=== PATIENT | female | born 1965 | race Caucasian/White ===

== ENCOUNTER 2023-04-11 09:01 | Emergency (ER) | payer OTHER, SELFPAY ==
--- NOTE | ~2023-04-11 | XR_ITS ---
XR chest 2V DATE: 04/11/2023 09:33 INDICATION: Intermittent chest pain/discomfort for 2 days TECHNIQUE: 2 views COMPARISON: 02/15/2018 two-view chest FINDINGS: Normal heart size. No hilar or mediastinal enlargement. No pulmonary infiltrate or consolidation, pleural effusion or pulmonary vascular congestion or pneumo thorax is detected. IMPRESSION: No active cardiopulmonary disease Reviewed, dictated and finalized at location A.
[2023-04-11 09:08] VITALS: BP 139/66; PULSE 74; RESP 20; TEMP 36.9; O2SAT 100
--- NOTE | 2023-04-11 09:16 | ECG_ITS ---
Measurements Intervals Nelson Rate: 66 P: 29 NJ: 157 QRS: 11 QRSD: 84 T: 10 QT: 396 QTc: 417 Interpretive Statements SINUS RHYTHM LOW QRS VOLTAGE IN PRECORDIAL LEADS [QRS DEFLECTION < 1.0 mV IN CHEST LEADS] ABNORMAL ECG NO PREVIOUS ECG AVAILABLE FOR COMPARISON Electronically Signed On 04-11-2023 12:49:52 CDT by Cory Schmidt M.D.
--- NOTE | 2023-04-11 09:19 | ED.CHESTPAIN ---
HPI - Chest Pain General Chief Complaint: Chest Pain Stated Complaint: tight under chest Time Seen by Provider: 04/11/23 09:15 Source: patient and RN notes reviewed History of Present Illness HPI narrative: Patient is a 57-year-old female presents to Urgent Care with her spouse with complaints of chest pressure and intermittent shortness of breath. Patient states that she has been under a lot of stress with family and feels that she may be having a panic attack. Patient states that she had this happened not too long ago and was at her primary care office, and had to be transferred to the emergency room due to elevated blood pressure. Since then patient has been put on blood pressure medications as well as anxiety meds and takes them appropriately. Patient states that the pain has been intermittent since yesterday and worse this morning at 4:00 a.m.. Patient denies any increase of shortness of breath on exertion. Patient is tearful and anxious. Patient and spouse aware of the plan of care. Some parts of this dictation were generated by voice recognition software and may contain typographical and/or grammatical inaccuracies. Related Data Home Medications Medication Instructions Recorded Confirmed bupropion HCl 100 mg tablet 100 mg PO DIRECTED 04/11/23 04/11/23 furosemide 20 mg tablet 20 mg PO DIRECTED 04/11/23 04/11/23 metoprolol succinate 50 mg 50 mg PO DIRECTED 04/11/23 04/11/23 tablet,extended release 24 hr Allergies Allergy/AdvReac Type Severity Reaction Status Date / Time latex Allergy Severe Rash Verified 04/11/23 09:17 Penicillins Allergy Unknown rash Verified 04/11/23 09:17 Review of Systems Review of Systems: CONSTITUTIONAL: Denies fever, chills, or sweats. EYES: Denies visual changes, redness, or discharge. ENT: Denies rhinorrhea, congestion, sore throat, or otalgia. CARDIOVASCULAR: Reports chest discomfort RESPIRATORY: Reports of intermittent shortness of breath GASTROINTESTINAL: Denies abdominal pain, nausea, vomiting, or diarrhea. GENITOURINARY: Denies dysuria or hematuria. SKIN: Denies rash or itching. MUSCULOSKELETAL: Denies back pain, joint pain, or myalgia. NEUROLOGIC: Denies headache, numbness, or weakness. All other systems reviewed are negative, except as documented in HPI. PMFSH Comments At the time of my signature, I reviewed and agree with the nursing past medical, surgical, social, and family history. There is no relevant family history pertinent to the patient complaint. Exam Narrative: GENERAL: This is a well-nourished, well-developed patient, tearful and anxious HEAD: normocephalic, atraumatic. EYES: PERRL. Sclera clear/white. Vision is grossly intact. EARS: External ears normal NOSE: External nose normal with no obvious nasal discharge, nares without redness, no rhinorrhea. THROAT: Mucous membranes moist NECK: Neck supple CARDIOVASCULAR: Regular rate and rhythm RESPIRATORY: Clear to auscultation. Breath sounds equal bilaterally. No wheezes, rales, or rhonchi. SKIN: warm, intact with no suspicious lesions or rash, good texture and turgor. NEURO: awake, alert, and oriented to person, place and time. There were no obvious focal neurologic abnormalities. EXTREMITIES: No clubbing, cyanosis, or edema. Course Course Level of Care: Express Care Visit Vital Signs Vital signs: Vital Signs Temperature 98.5 F 04/11/23 09:08 Pulse Rate 74 04/11/23 09:08 Respiratory Rate 20 04/11/23 09:08 Blood Pressure 139/66 04/11/23 09:08 Pulse Oximetry 100 04/11/23 09:08 Oxygen Delivery Room Air 04/11/23 09:08 Temperature 98.5 F 04/11/23 09:08 Pulse Rate 74 04/11/23 09:08 Respiratory Rate 20 04/11/23 09:08 Blood Pressure 139/66 04/11/23 09:08 Pulse Oximetry 100 04/11/23 09:08 Oxygen Delivery Room Air 04/11/23 09:08 Reviewed MDM - Chest Pain MDM Narrative Medical decision making narrative: Reviewed EKG results with the patient.
== END 2023-04-11 10:16 | disposition left against medical advice (07) ==
PROVIDERS: Emergency Provider Nurse Practitioner Family; PCP Internal Medicine
DX: F41.9 Anxiety disorder, unspecified (principal); R07.9 Chest pain, unspecified; R94.31 Abnormal electrocardiogram [ECG] [EKG]; I10 Essential (primary) hypertension; F32.A Depression, unspecified
CPT/HCPCS: 71046; 93005; 99213; G0463

== ENCOUNTER 2023-07-27 08:07 | Emergency (ER) | payer OTHER, SELFPAY ==
[2023-07-27 08:14] VITALS: BP 132/72; PULSE 78; RESP 20; TEMP 36.7; O2SAT 98
--- NOTE | 2023-07-27 08:19 | ED.URI ---
HPI - URI/Sore Throat General Chief Complaint: Upper Respiratory Infection Stated Complaint: Bodyache/Sore Throat/Fever Time Seen by Provider: 07/27/23 08:19 Source: patient, RN notes reviewed and old records reviewed Mode of arrival: ambulatory Limitations: no limitations History of Present Illness HPI Narrative: 58 year old female who presents to [facility] with complaints of sore throat , fevers, body aches, and headache which started yesterday morning. Patient reports that her legs and her knees hurt on Wednesday. She also reports that she has some ear discomfort also. She has taken Tylenol and ibuprofen for symptoms for her symptoms. Patient denies any known ill contacts. patient reports that she has had COVID vaccinations but has not had flu shot. MD elicited complaint: fever, sore throat and other (headache and body aches) Onset (ago): day(s) (1) Treatments prior to arrival: acetaminophen and ibuprofen Related Data Home Medications Medication Instructions Recorded Confirmed atorvastatin 20 mg tablet mg 07/27/23 bupropion HCl 100 mg tablet mg PO 07/27/23 trazodone 50 mg tablet mg 07/27/23 Allergies Allergy/AdvReac Type Severity Reaction Status Date / Time No Known Allergies Allergy Verified 07/27/23 08:19 Review of Systems Review of Systems: CONSTITUTIONAL: She reports is malaise, chills, sweats, or fever. EYES: Denies visual changes, redness, or discharge. ENT: Reports rhinorrhea, congestion, sinus pain, otalgia and sore throat. CARDIOVASCULAR: Denies chest pain, palpitations, or edema. RESPIRATORY: Reports no cough.? Denies dyspnea. GASTROINTESTINAL: Denies abdominal pain, nausea, vomiting, diarrhea SKIN: Denies rash or itching. MUSCULOSKELETAL: Reports myalgia. NEUROLOGIC: She reports headache. All systems reviewed & are unremarkable except as noted in HPI and below PMFSH Past Medical History Medical History (Updated 07/27/23 @ 08:58 by Loren Baum NP) Anxiety Hypertension Surgical History Surgical History (Updated 07/27/23 @ 08:58 by Loren Baum NP) H/O: hysterectomy History of arthroscopy of both knees Previous section X2 Social History Social History (Updated 07/27/23 @ 08:57 by Loren Baum NP) Smoking status: Never smoker Alcohol intake: unknown Substance use type: does not use Living arrangements: with family Gender identity (if verbalized by the patient): Female Comments At time of signature, agree with nursing past medical, surgical, social and family history. There is no relevant family history pertinent to the presenting complaint Exam Narrative: GENERAL: Well-appearing, well-nourished, and in no acute distress. HEAD: Normocephalic EYES: PERRLA, conjunctivae clear ENT: Nares clear, turbinates edematous and erythematous, clear discharge. Mucous membranes moist. TM pearly [place] with dull light reflex bilaterally; no tragal tenderness. Oropharynx erythematous without lesions. Tonsils not enlarged and without exudate, no drooling, no hoarseness, no trismus, uvula midline.post nasal drainage noted. NECK: Supple. No lymphadenopathy CHEST: Clear to auscultation, breath sounds equal. No wheezing, rhonchi, rales, or stridor. No respiratory distress, speaks in full sentences.SAO2 98% on room air HEART: Regular rate and rhythm. No murmur heard. SKIN: Warm, dry, no rash. NEURO: Alert and oriented x3. PSYCH: Normal mood and affect Course Course Emergency Course: Patient is aware of diagnosis, understands and agrees to treatment plan.? Anticipatory guidance given.? Patient agrees to follow-up as directed and is aware of reasons to seek care at the emergency department. Portions of this record may have been created with voice recognition software Level of Care: Express Care Visit Vital Signs Vital signs: Vital Signs Temperature 36.7 C 07/27/23 08:14 Pulse Rate 78 07/27/23 08:14 Respirato
[2023-07-27 08:22] VITALS: BP 132/72; PULSE 78; RESP 20; TEMP 36.7; O2SAT 98
== END 2023-07-27 08:55 | disposition home or self-care (01) ==
PROVIDERS: Emergency Provider Registered Nurse; PCP Internal Medicine
DX: J06.9 Acute upper respiratory infection, unspecified (principal); Z20.822 Contact with and (suspected) exposure to COVID-19; I10 Essential (primary) hypertension; F41.9 Anxiety disorder, unspecified
CPT/HCPCS: 87081; 87426; 87804; 87880; 99213; C9803; G0463

== ENCOUNTER 2024-07-21 18:54 | Emergency (ER) | payer OTHER, SELFPAY ==
[2024-07-21 19:02] VITALS: BP 140/74; PULSE 90; RESP 16; TEMP 36.6; O2SAT 100
--- NOTE | 2024-07-21 20:55 | ED.WOUNDLAC ---
HPI - Wound/Laceration General Chief Complaint: Wound/Laceration Stated Complaint: Skin Sore/Right Hip Time Seen by Provider: 07/21/24 19:43 Source: patient and RN notes reviewed Mode of arrival: ambulatory Limitations: no limitations History of Present Illness HPI narrative: Patient presents today with a 2 week history of a sore to her right upper leg that continues to worsen. She was seen by her PCP approximately 1 week ago and was told to go home and, ?pop it with a needle and was placed on Keflex without improvement. She has been covering it daily with a Band-Aid, but the area surrounding the wound continues to become red due to the Band-Aid. Related Data Home Medications Medication Instructions Recorded Confirmed bupropion HCl 100 mg tablet 100 mg PO DIRECTED 04/11/23 04/11/23 furosemide 20 mg tablet 20 mg PO DIRECTED 04/11/23 04/11/23 trazodone 50 mg tablet mg 07/27/23 Otc Anti Fungal Cream 07/21/24 cephalexin 500 mg capsule mg 07/21/24 lorazepam 0.5 mg tablet mg 07/21/24 nystatin 100,000 unit/gram topical topical 07/21/24 powder (Klayesta) Allergies Allergy/AdvReac Type Severity Reaction Status Date / Time latex Allergy Severe Rash Verified 07/21/24 19:00 Penicillins Allergy Unknown rash Verified 07/21/24 19:00 Review of Systems Review of Systems: CONSTITUTIONAL: Denies body aches, fever, chills, or sweats. EYES: Denies visual changes, redness, or discharge. ENT: Denies rhinorrhea, congestion, sore throat, or otalgia. CARDIOVASCULAR: Denies chest pain, palpitations, or edema. RESPIRATORY: Denies cough or dyspnea. GASTROINTESTINAL: Denies abdominal pain, nausea, vomiting, or diarrhea. GENITOURINARY: Denies dysuria or hematuria. SKIN: Wound to right upper leg MUSCULOSKELETAL: Denies back pain, joint pain, or myalgia. NEUROLOGIC: Denies headache, numbness, tingling, or weakness. PSYCH: Denies depression or anxiety. FORMERLY [facility] Past Medical History Medical History Anxiety Hypertension Surgical History Surgical History H/O: hysterectomy History of arthroscopy of both knees Previous section X2 Social History Social History Smoking status: Never smoker Alcohol intake: unknown Substance use type: does not use Living arrangements: with family Gender identity (if verbalized by the patient): Female Comments At time of signature, I have reviewed and agree with nursing past medical, surgical, social and family history unless otherwise noted. Please see nursing chart for further information. There is no relevant family history pertinent to the presenting complaint Exam Narrative: GENERAL: Well-appearing, well-nourished, and in no acute distress. HEAD: Normocephalic, atraumatic. EYES: EOMI. No redness or drainage. Conjunctivae normal. ENT: Mucous membranes pink and moist. NECK: Normal AROM. CHEST: No respiratory distress. EXTREMITIES: Normal range of motion. No edema. SKIN: Warm, dry, no rash. Capillary refill normal. Normal skin turgor. 2.5 x 2 cm wound filled with purulent discharge just distal to the right anterior hip area. This area is surrounded in erythema and skin breakdown related to dressing. Tender to palpation. NEURO: No focal deficits. Alert and oriented x3. Gait steady. PSYCH: Normal affect. No signs of depression or anxiety. Course Course Level of Care: Express Care Visit Vital Signs Vital signs: Vital Signs Temperature 98 F 07/21/24 19:02 Pulse Rate 90 07/21/24 19:02 Respiratory Rate 16 07/21/24 19:02 Blood Pressure 140/74 07/21/24 19:02 Pulse Oximetry 100 07/21/24 19:02 Oxygen Delivery Room Air 07/21/24 19:02 Temperature 98 F 07/21/24 19:02 Pulse Rate 90 07/21/24 19:02 Respiratory Rate 16 07/21/24 19:02 Blood Pr
== END 2024-07-21 20:36 | disposition home or self-care (01) ==
PROVIDERS: Emergency Provider Nurse Practitioner; PCP Internal Medicine
DX: L02.415 Cutaneous abscess of right lower limb (principal); I10 Essential (primary) hypertension; F41.9 Anxiety disorder, unspecified
CPT/HCPCS: 11042; 99213; G0463

== ENCOUNTER 2024-10-08 16:58 | Emergency (ER) | payer OTHER, SELFPAY ==
--- NOTE | ~2024-10-08 | XR_ITS ---
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 RESULT: Lines, tubes, and devices: None. Lungs and pleura: Low volumes with crowding, otherwise clear. Cardiomediastinal silhouette: Stable. Other: No acute osseous or upper abdominal finding. IMPRESSION: No acute cardiopulmonary process. Reviewed, dictated and finalized at location K. R OPERATOR
[2024-10-08 17:07] VITALS: BP 156/72; PULSE 91; RESP 18; TEMP 37.1; O2SAT 97
--- NOTE | 2024-10-08 17:28 | ED.URI ---
HPI - URI/Sore Throat General Chief Complaint: Upper Respiratory Infection Stated Complaint: headache/chills/can't get deep breath History of Present Illness HPI Narrative: Patient presents with fever body aches headache bilateral ear pain nasal congestion and cough. Patient states she has been exposed to multiple viruses but denies any shortness of breath no chest pain. Patient states she has been running a fever on and off for the past 2-3 days and has been taking Tylenol for her symptoms. Related Data Home Medications ?Medication ?Instructions ?Recorded ?Confirmed ?Last Taken ?Type bupropion HCl 100 mg tablet 100 mg PO DIRECTED 04/11/23 10/08/24 Unknown History furosemide 20 mg tablet 20 mg PO DIRECTED 04/11/23 10/08/24 Unknown History trazodone 50 mg tablet mg 07/27/23 Unknown History lorazepam 0.5 mg tablet mg 07/21/24 Unknown History atorvastatin 20 mg tablet mg 10/08/24 Unknown History carvedilol 6.25 mg tablet mg 10/08/24 Unknown History naproxen 500 mg tablet mg 10/08/24 Unknown History sacubitril 24 mg-valsartan 26 mg tablet 10/08/24 Unknown History tablet (Entresto) Allergies Allergy/AdvReac Type Severity Reaction Status Date / Time latex Allergy Severe Rash Verified 10/08/24 17:09 Penicillins Allergy Unknown rash Verified 10/08/24 17:09 Review of Systems Review of Systems: CONSTITUTIONAL: Denies chills, or sweats. Reports fever and generalized body aches EYES: Denies visual changes, redness, or discharge. ENT: Denies otalgia. Reports nasal congestion runny nose and sore throat CARDIOVASCULAR: Denies chest pain, palpitations, or edema. RESPIRATORY: Denies dyspnea. Reports occasional cough GASTROINTESTINAL: Denies abdominal pain, nausea, vomiting, or diarrhea. GENITOURINARY: Denies dysuria or hematuria. SKIN: Denies rash or itching. MUSCULOSKELETAL: Denies back pain, joint pain, or myalgia. Reports generalized body aches NEUROLOGIC: Denies headache, numbness, or weakness. PSYCHIATRIC: Denies anxiety or depression. FOR[facility], [facility] Past Medical History Medical History Anxiety Hypertension Surgical History Surgical History H/O: hysterectomy History of arthroscopy of both knees Previous section X2 Social History Social History Smoking status: Never smoker Alcohol intake: unknown Substance use type: does not use Living arrangements: with family Gender identity (if verbalized by the patient): Female Comments At time of signature, agree with nursing past medical, surgical, social and family history. There is no relevant family history pertinent to the presenting complaint Exam Narrative: The patient is a well-developed, well-nourished in no acute distress. SKIN: Skin is warm and dry without erythema, swelling or exudate. There is good turgor. No tenting. HEAD: Atraumatic. Normocephalic. No temporal or scalp tenderness. EYES: Moist and bright. Sclera and conjunctivae normal. No discharge. PERRLA. Extraocular motions intact. Gross visual acuity intact. EARS: Pinna is normal shape and contour. Clear external auditory canals. TM pearly roberts with good cone of light, no erythema or suppuration. Bilateral cerumen noted no gross hearing deficit. NOSE: pink, moist mucosa with good air movement. Clear rhinorrhea without nasal flaring. Septum midline. maxillary sinus pressure Mouth: moist mucous membranes. THROAT; mild erythema noted to posterior oropharynx with moderate postnasal drainage. Without exudate or ulceration.. Uvula midline. Normal movement of soft palate. NECK: Supple and nontender with full range of motion without discomfort. No meningeal signs. LUNGS: Equal and bilateral breath sounds without wheezes, rales or rhonchi. CHEST: The chest wall is without retractions or use of accessory muscles. HEART: Has a regular rate and rhythm without murmur, gallops, click or rub. ABDOMEN: Soft, nontender with positive active bowel sounds. No rebound tenderness. EXTREMITIES: Without cyanosis, clubbing or edema. Equal 2+ distal pulses and 2 second capillary refill noted. NEUROLOGIC: alert, active, . The patient moves all extremities with normal muscle strength. Normal muscle tone is noted. Normal coordination is noted. NO focal neurological findings noted. Course Course Level of Care: Express Care Visit Vital Signs Vital signs: Vital Signs Temperature 37.1 C 10/08/24 17:07 Pulse Rate 91 10/08/24 17:07 Respiratory Rate 18 10/08/24 17:07 Blood Pressure 156/72 H 10/08/24 17:07 Pulse Oximetry 97 10/08/24 17:07 Oxygen Delivery Room Air 10/08/24 17:07 Temperature 37.1 C 10/08/24 17:07 Pulse Rate 91 10/08/24 17:07 Respiratory Rate 18 10/08/24 17:07 Blood Pressure 156/72 H 10/08/24 17:07 Pulse Oximetry 97 10/08/24 17:07 Oxygen Delivery Room Air 10/08/24 17:07 Please JUDY schedule a followup visit with your personal physician for further evaluation and treatment. Including recheck and discussion of your blood pressure. If your symptoms persist, change or worsen significantly before you can contact your personal physician then please, without delay, go to the emergency department for further evaluation Discharge Plan Discharge Clinical Impression: Bronchitis, Upper respiratory infection, Cough, Sinusitis Patient Disposition: Home, Self-Care Condition: Stable Instructions: Antibiotic Form Additional Instructions: INUSITIS, Abx Tx, Drink plenty of water (with the goal to keep your urine clear to light yellow) and get plenty of rest (8-9 hours a night).You may try saline rinses ([place]/Simply Saline/Neti Pot), Michele's Vaporub, or a humidifier/hot showers for your nose symptoms. You may also try taking an anti-histamine during the day (such as Tamanna/Claritin/Zyrtec) and Benadryl at night as dosed on the package regularly for the next 1-2 weeks to help dry passageways to decrease drainage and symptoms. You may try Delsym or Mucinex DM as dosed on the package, or cough drops for your cough. You may try Chloraseptic spray as dosed on the bottle, honey 2-3 tablespoons 2-3 times a day, cough drops/peppermints for your sore throat over the next week. , Discussed with patient if worsening symptoms or worsening pain follow up with primary care physician -If you have any worsening of symptoms or any other concerns please go to the ED immediately. Patient Language: Indonesian Prescriptions: New doxycycline monohydrate 100 mg capsule 100 mg PO BID 7 Days Qty: 14 0RF fluticasone propionate [Flonase Allergy Relief] 50 mcg/actuation spray,suspension 2 spray NASAL BID Qty: 9.9 0RF Rx Instructions: administer into each nostril No Action bupropion HCl 100 mg tablet 100 mg PO DIRECTED furosemide 20 mg tablet 20 mg PO DIRECTED trazodone 50 mg tablet lorazepam 0.5 mg tablet carvedilol 6.25 mg tablet atorvastatin 20 mg tablet naproxen 500 mg tablet Entresto 24-26 mg tablet Follow-up/Referrals: Pasha,Wali Chatman MD [Primary Care Provider] -
[2024-10-08 17:48] LABS: EDCOVIDSCREEN Negative (Negative); EDINFLUASCREEN Negative (Negative); EDINFLUBSCREEN Negative (Negative)
--- OUTSIDE RECORDS SUMMARY | 2024-10-13 16:06 | XMS_ITS | Encounter Summary ---
Author Organization [facility] Address [address] [facility] [place] [address] Phone Care Team Providers Care Processor Inspector Name Role Phone Wali Pak MD Primary Care Provider Reason for Visit * Reason Comments Medication Refill Encounter Details Date Type Department Care Team (Late st Contact Info) Description 12/30/2023 [facility]ill [facility] - [place] [address] [place] [address] Wali Pak MD [address] [place] [address] Medication Refill Social History Tobacco Use Types Packs/Day Years Used Date Smoking Tobacco: Former Cigarettes 0.3 3 Smokeless Tobacco: Never Comments:social Alcohol Use Standard Drinks/Week Comments Yes 0 (1 standard drink = 0.6 oz pur e alcohol) social AHC Utilities Answer Date Recorded In the past 12 months has [email or web address], gas, oil, or water [employer] threatened to shut off services in your home? Patient declined 10/11/2023 Social Connection and Isolation Panel [NHANES] A nswer Date Recorded In a typical week, how many times do you talk on the phone with family, friends, or neighbors? Patient declined 10/11/2023 How often do you get togethe r with friends or relatives? Patient declined 10/11/2023 How often do you attend presybeterian or mormon serv ices? Patient declined 10/11/2023 Do you belong to any clubs o r organizations such as presybeterian groups, unions, fraternal or athletic groups, or school groups? Patient declined 10/11/2023 How often do you attend meet ings of the clubs or organizations you belong to? Patient declined 10/11/2023 Are you , , di vorced, , never , or living with a partner? Patient declined 10/11/2023 AUDIT-C Answer Date Recorded Q1: How often do you have a drink containing alc ohol? Patient declined 10/11/2023 Q2: How many drinks containi ng alcohol do you have on a typical day when you are drinking? Patient declined 10/11/2023 Q3: How often do you have si x or more drinks on one occasion? Patient declined 10/11/2023 Overall Financial Resource Strain (CARDIA) Answe r Date Recorded How hard is it for you to pa y for the very basics like food, housing, medical care, and heating? Patient declined 10/11/2023 PHQ-2 Answer Date Recorded Total Score - Questions 1-9 0 09/24 [facility] - Occupational Stress Questionnaire Answer Date Recorded Do you feel stress - tense, restless, nervous, or anxious, or unable to sleep at night because your mind is troubled all the time - these days? Patient declined 10/11/2023 Exercise Vital Sign Answer Date Recorde d On average, how many days pe r week do you engage in moderate to strenuous exercise (like a brisk walk)? Patient declined On average, how many minutes do you engage in exercise at this level? Patient declined 10/11/2023 Hunger Vital Sign Answer Date Recorded Within the past 12 months, y ou worried that your food would run out before you got the money to buy more. Patient declined Within the past 12 months, t he food you bought just didn't last and you didn't have money to get more. Patient declined PRAPARE - Transportation Answer Date Re corded In the past 12 months, has l ack of transportation kept you from medical appointments or from getting medications? Patient declined 10/11/2023 In the past 12 months, has l ack of transportation kept you from meetings, work, or from getting things needed for daily living? Patient declined 10/11/2023 Housing Stability Vital Sign Answer Chester e Recorded In the last 12 months, was t here a time when you were not able to pay the mortgage or rent on time? Patient declined 10/11/20 23 Number of Places Lived in the Last Year Not on f ile 10/11/2023 In the last 12 months, was t here a time when you did not have a steady place to sleep or slept in a skilled nursing (including now)? Patient declined 10/11/2023 Education Answer Date Recorded What is the highest level of school you have completed or the highest degree you have received? 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 Requested Prescriptions Pending Prescriptions Disp Refills traZODone (DESYREL) 50 MG Tablet [Pharmacy Med Name: TRAZODONE 50 MG TABLET] 45 Tablet 0 Sig: TAKE 1/2 TABLET BY MOUTH NIGHTLY [facility] (6 Month Refill Only) Protocol Passed - 12/30/2023 12:45 AM Passed - Visit with relevant provider in past 6 months or upcoming 90 days Recent Visits Date Type Provider Dept 10/11/23 Office Visit Wali Pak MD [facility] Showing recent visits within past 182 days and meeting all other requirements Future Appointments Date Type Provider Dept 01/10/24 Appointment Wali Pak MD [facility] Showing future appointments within next 90 days and meeting all other requirements Passed - Has an encounter in the past 6 months with a depression or anxiety visit diagnosis Passed - No PRN Use for Trazodone Passed - Patient has established therapy with [facility] for at least 6 months 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 [address] [place] [address] Wali Pak MD [address] [place] [address] documented as of this encounter Visit Diagnoses Not on filedocumented in this encounter Additional Health Concerns Assessment Noted Time PHQ-9 Depression Total Score: 0 10/11/20 23 8:20 AM INTERNATIONAL OPERATIONS MANAGER documented as of this encounter Care Teams Processor Inspector Relationship Specialty Start Date End Date Wali Pak MD [address] [place] [address] PCP - General Internal Medicine 12/30/15 documented as of this encounter
--- OUTSIDE RECORDS SUMMARY | 2024-10-13 16:06 | XMS_ITS | Encounter Summary ---
Author Organization [facility] Address [address] [facility] [place] [address] Phone Care Team Providers Care Client Executive Name Role Phone Wali Pak MD Primary Care Provider Reason for Visit * Reason Onset Date Comments Medication Refill 06/28/2024 Encounter Details Date Type Department Care Team (Late st Contact Info) Description 06/28/2024 Refill [facility] - Internal Medicine [facility] [address] [place] [address] Wali Pak MD [address] [place] [address] Medication Refill Social History Tobacco Use Types Packs/Day Years Used Date Smoking Tobacco: Former Cigarettes 0.3 3 Passive Smoke Exposure: Past Smokeless Tobacco: Never Comments:social Alcohol Use Standard Drinks/Week Comments Yes 0 (1 standard drink = 0.6 oz pur e alcohol) social C Utilities Answer Date Recorded In the past 12 months has e [employer], gas, oil, or water company threatened to shut off services in your home? No 02/07/2024 Social Connection and Isolat ion Panel [NHANES] Answer Date Recorded In a typical week, how many times do you talk on the phone with family, friends, or neighbors? More than three times a week 02/07/2024 How often do you get togethe r with friends or relatives? More than three times a week 02/07/2024 How often do you attend chur or samaritan services? More than 4 times per year 02/07/2024 Do you belong to any clubs o r organizations such as yazidism groups, unions, fraternal or athletic groups, or school groups? Yes 02/07/2024 How often do you attend meet ings of the clubs or organizations you belong to? More than 4 times per year 02/07/2024 Are you , , di vorced, , never , or living with a partner? 02/07/2024 AUDIT-C Answer Date Recorded Q1: How often do you have a drink containing alcohol? Never 02/07/2024 Q2: How many drinks containi ng alcohol do you have on a typical day when you are drinking? Patient does not drink Q3: How often do you have si x or more drinks on one occasion? Never 02/07/2024 Overall Financial Resource Strain (CARDIA) Answe r Date Recorded How hard is it for you to pa y for the very basics like food, housing, medical care, and heating? Not hard at all 02/07/2024 PHQ-2 Answer Date Recorded Total Score - Questions 1-9 0 01/23 [facility]ational Stress Questionnaire Answer Date Recorded Do you feel stress - tense, restless, nervous, or anxious, or unable to sleep at night because your mind is troubled all the time - these days? Not at all 02/07/2024 Exercise Vital Sign Answer Date Recorde d On average, how many days pe r week do you engage in moderate to strenuous exercise (like a brisk walk)? 0 days 02/07/2024 On average, how many minutes do you engage in exercise at this level? 0 min 02/07/2024 Hunger Vital Sign Answer Date Recorded Within the past 12 months, y ou worried that your food would run out before you got the money to buy more. Never true 02/07/20 24 Within the past 12 months, t he food you bought just didn't last and you didn't have money to get more. Never true 02/07/2024 PRAPARE - Transportation Answer Date Re corded In the past 12 months, has l ack of transportation kept you from medical appointments or from getting medications? No 01/23 In the past 12 months, has l ack of transportation kept you from meetings, work, or from getting things needed for daily living? No 02/07/2024 Housing Stability Vital Sign Answer Chester e Recorded In the last 12 months, was t here a time when you were not able to pay the mortgage or rent on time? No 02/07/2024 In the last 12 months, how many places have you lived? 2 02/07/2024 In the last 12 months, was t here a time when you did not have a steady place to sleep or slept in a detention (including now)? No 02/07/2024 Education Answer Date Recorded What is the [...] Telephone Encounter - Enedelia Damon RN - 06/28/2024 10:58 AM CDT Medication failed the protocol, provider to review and approve the medication order if appropriate. Requested Prescriptions Pending Prescriptions Disp Refills LORazepam (ATIVAN) 0.5 MG Tablet 15 Tablet 0 Sig: Take 1 Tablet by mouth daily as needed for Anxiety. Not Delegated - Benzodiazepines Protocol Failed - 06/28/2024 10:41 AM Failed - This refill cannot be delegated Passed - Visit with relevant provider in past 12 months or upcoming 90 days Recent Visits Date Type Provider Dept 02/07/24 Office Visit Wali Pak MD [facility] 10/11/23 Office Visit Wali Pak MD [facility] Showing recent visits within past 365 days and meeting all other requirements Future Appointments Date Type Provider Dept 08/01/24 Appointment [facility] Show[facility] future appointments within next 90 days and meeting all other requirements * Telephone Encounter - January - 06/28/2024 10:40 AM CDT Refill Request: Requested Prescriptions Pending Prescriptions Disp Refills LORazepam (ATIVAN) 0.5 MG Tablet 15 Tablet 0 Sig: Take 1 Tablet by mouth daily as needed for Anxiety. [facility] documented in this encounter Plan of Treatment Upcoming Encounters Date Type Department Care Team (Late st Contact Info) Description 02/05/2025 8:00 AM CDT Office Visit [facility] - Internal Medicine [place] [address] [place] [address] Wali Pak MD [address] [place] [address] documented as of this encounter Visit Diagnoses Diagnosis Generalized anxiety disorder documented in this encounter Additional Health Concerns Assessment Noted Time PHQ-9 Depression Total Score: 0 02/07/20 24 7:57 AM CDT documented as of this encounter Care Teams Client Executive Relationship Specialty Start Date End Date Wali Pak MD [address] [place] [address] PCP - General Internal Medicine 12/30/15 documented as of this encounter
--- OUTSIDE RECORDS SUMMARY | 2024-10-13 16:06 | XMS_ITS | Encounter Summary ---
Author Organization [employer] Care Team Providers Care General Medical Practitioner Name Role Phone Wali Pak MD Primary Care Provider Encounter Details Date Type Department Care Team (Latest Contact Info) Description 02/07/2024 Travel Social History Tobacco Use Types Packs/Day Years Used Date Smoking Tobacco: Former Cigarettes 0.3 3 Passive Smoke Exposure: Past Smokeless Tobacco: Never Comments:social Alcohol Use Standard Drinks/Week Comments Yes 0 (1 standard drink = 0.6 oz pur e alcohol) social AHC Utilities Answer Date Recorded In the past 12 months has e electric, gas, oil, or water company threatened to [...] 02/07/2024 How often do you attend chur ch or yazidi services? More than 4 times per year 02/07/2024 Do you belong to any clubs o r organizations such as confucianist groups, unions, fraternal or athletic groups, or [...] Total Score - Questions 1-9 0 01/23 [facility] Occupat ional [facility] - Occupational Stress Questionnaire Answer Date Recorded [...] place to sleep or slept in a residential (including now)? No 02/07/2024 Education Answer Date [...] on file documented as of this encounter Functional Status * Audit-C Score Answer Date of Assessment Author 0 02/07/2024 8:00 AM Dayana Cruz CMA * Within the last year, have you been humiliated or emotionally abused in other ways by your partner or ex-partner? Answer Date of Assessment Author No 02/07/2024 8:00 AM Dayana Cruz CMA * Within the last year, have you been afraid of your partner or ex-partner? Answer Date of Assessment Author No 02/07/2024 8:00 AM Dayana Cruz CMA * Within the last year, have you been raped or forced to have any kind of sexual activity by your partner or ex-partner? Answer Date of Assessment Author No 02/07/2024 8:00 AM Dayana Cruz CMA * Within the last year, have you been kicked, hit, slapped, or otherwise physically hurt by your partner or ex-partner? Answer Date of Assessment Author No 02/07/2024 8:00 AM Dayana Cruz CMA * Question Answer Date of Assessment Author Q1: How often do you have a drink containing alcohol? Never 02/07/2024 8:00 AM Dayana Cruz CMA Q2: How many drinks containing alcohol do you have on a typical day when you are drinking? Patient does not drink 02/07/2024 8:00 AM Dayana Cruz CMA Q3: How often do you have six or more drinks on one occasion? Never 02/07/2024 8:00 AM CDT Dayana Chapa CMA * Question Answer Date of Assessment Author Little interest or pleasure in doing things Not at all 02/07/2024 7:57 AM Dayana Cruz CMA Feeling down, depressed, or hopeless Not at all 02/07/2024 7:57 AM CDT Dayana Chapa CMA * Over the past 2 weeks, how often have you been bothered by any of the following problems? Question Answer Date of Assessment Author Patient Health Questionnaire -2 Score 0 02/07/2024 7:57 AM CDT Dayana Chapa CMA documented as of this encounter Plan of Treatment Upcoming Encounters Date Type Department Care Team (Late st Contact Info) Description 02/05/2025 8:00 AM CDT Office Visit [facility] - Internal Medicine [place] [address] [place] [address] Wali Pak MD [address] [place] [address] documented as of this encounter Visit Diagnoses Not on filedocumented in this encounter Additional Health Concerns Assessment Noted Time PHQ-9 Depression Total Score: 0 02/07/20 24 7:57 AM CDT documented as of this encounter Care Teams General Medical Practitioner Relationship Specialty Start Date End Date Wali Pak MD [address] [place] [address] PCP - General Internal Medicine 12/30/15 documented as of this encounter
--- OUTSIDE RECORDS SUMMARY | 2024-10-13 16:06 | XMS_ITS | Encounter Summary ---
Author Organization [facility] Address [address] [place] [address] Phone Care Team Providers Care Fuse Assembler Name Role Phone Wali Pak MD Primary Care Provider Reason for Visit * Reason Comments Insect Bite Right upper leg had Wednesday after camping is worse Encounter Details Date Type Department Care Team (Late st Contact Info) Description 07/17/2024 2:30 PM CDT Office Visit [facility] - Internal [facility] [address] [place] [id number] Tereza Lujan, PAC [address] [place] [address] Rash (Primary Dx); Insect bite (nonvenomous) of abdominal wall, initial encounter; Cellulitis, unspecified cellulitis site Discharge Disposition: Discharged to home or Selfcare Social History Tobacco Use Types Packs/Day Years Used Date Smoking Tobacco: Former Cigarettes 0.3 3 Passive Smoke Exposure: Past Smokeless Tobacco: Never Tobacco Cessation:Counseling Given: No Comments:social Alcohol Use Standard Drinks/Week Comments Yes 0 (1 standard drink = 0.6 oz pur e alcohol) social C Utilities Answer Date Recorded In the past 12 months has [employer] gas, oil, or water company threatened to [...] often do you attend chur ch or baptist services? More than 4 times per year 02/07/2024 Do you belong to any clubs o r organizations such as anglican groups, unions, fraternal or athletic groups, or [...] Total Score - Questions 1-9 0 01/23 [facility] Occupat ional Health - Occupational Stress [...] place to sleep or slept in a long term (including now)? No 02/07/2024 Education Answer Date [...] on file documented as of this encounter Last Filed Vital Signs Vital Sign Reading Time Taken Comments Blood Pressure 166/88 07/17/2024 2:27 PM CDT Pulse 107 07/17/2024 2:27 PM CDT Temperature 36.6 ??C (97.8 ??F) 07/17/2024 2:27 PM CD T Respiratory Rate 12 07/17/2024 2:27 PM CDT Oxygen Saturation 97% 07/17/2024 2:27 PM CDT Inhaled Oxygen Concentration - - Weight 109.3 kg (241 lb) 07/17/2024 2:27 PM CDT Height - - Body Mass Index 38.9 03/16/2024 11:46 AM CDT documented in this encounter Progress Notes * Tereza Lujan PAC - 07/17/2024 2:30 PM CDT Chief Complaint: Chief Complaint Patient presents with Insect Bite Right upper leg had Wednesday after camping is worse Assessment/Plan: Diagnoses and all orders for this visit: Rash Insect bite (nonvenomous) of abdominal wall, initial encounter Cellulitis, unspecified cellulitis site Other orders - cephALEXin (KEFLEX) 500 MG Capsule; Take 1 Capsule by mouth 2 times daily for 10 days. - nystatin [id number] UNIT/GM Powder; Apply 3 times daily for 14 days. Apply to affected area as directed. Under L breast; fungal rash Keep dry Avoid moisture Open to air dry Nystop powder daily until healed F/u if does not resolve LEFT inner groin area Absecess May be previous insect or bite Will R keflex Warm compresses F/u 1 week Skin check Subjective: Ms. Mervat Haro is a 59 y.o. female here today for above. Rash under L breast Boil in L thigh Not sure if insect bite or other cause No fever Sx for a few days Has tried some OTC stuff and it has not helped No other c/o ROS: Review of Systems Constitutional: Negative for fever. Skin: Positive for rash. Rash under L breast Boil L thigh inner VITAL SIGNS: BP Readings from Last 3 Encounters: 07/17/24 166/88 03/16/24 134/62 02/07/24 126/68 Wt Readings from Last 3 Encounters: 07/17/24 241 lb (109.3 kg) 03/16/24 235 lb (106.6 kg) 02/07/24 239 lb (108.4 kg) Vitals: 07/17/24 1427 BP: 166/88 BP Location: Left Arm BP Position: Sitting BP Cuff Size: Regular Pulse: 107 Resp: 12 Temp: 97.8 ??F (36.6 ??C) TempSrc: Temporal SpO2: 97% Weight: 241 lb (109.3 kg) Body mass index is 38.9 kg/m??. PHYSICAL EXAM: Physical Exam Vitals reviewed. Constitutional: Appearance: Normal appearance. HENT: Head: Normocephalic and atraumatic. Pulmonary: Effort: Pulmonary effort is normal. Skin: General: Skin is warm. Comments: Mild rash under L breast Boil L inner thigh Neurological: Mental Status: She is alert. Mental status is at baseline. Psychiatric: Mood and Affect: Mood normal. Labs/Studies Reviewed: Lab Results Component Value Date WBC 6.82 03/16/2024 HEMOGLOBIN 13.1 03/16/2024 HEMATOCRIT 40.2 03/16/2024 PLATELETCNT 247 03/16/2024 MCV 91.2 03/16/2024 Lab Results Component Value Date SODIUM 142 03/16/2024 POTASSIUM 3.9 03/16/2024 CHLORIDE 109 (H) 03/16/2024 CO2VEN 24 03/16/2024 ANIONGAP 12.9 03/16/2024 GLUCOSE 101 (H) 03/16/2024 BUN 13 03/16/2024 CREATININE 0.6 03/16/2024 BCRATIO8 18 03/16/2024 TOTALPROTEIN 7.0 03/16/2024 ALBUMIN 3.9 03/16/2024 CALCIUM 9.1 03/16/2024 TBIL 0.6 03/16/2024 SGOTAST 18 03/16/2024 SGPTALT 27 03/16/2024 ALKALINEPHO 80 03/16/2024 GFRNA >60 03/16/2024 GFRA >60 03/16/2024 Lab Results Component Value Date TSH 2.543 10/22/2023 Lab Results Component Value Date HGBA1C 5.7 02/08/2024 Lab Results Component Value Date CHOLESTEROL 200 (H) 02/08/2024 TRIGLYCRIDES 81 02/08/2024 HDLCHOLESTE 43 02/08/2024 LDL 141 (H) 02/08/2024 No results found for: PSASCREEN , PSA , PSAFREE , PSAPCNTFREE , PSATOTAL @MAMMOFINDINGS@ EKG 12 LEAD Result Date: 03/17/2024 Normal sinus rhythm Possible Anterior infarct , age undetermined Abnormal ECG When compared with ECG of 23-FEB-2019 10:00, No significant change was found Confirmed by Rudy Hodges ([id number]) on 03/17/2024 12:38:45 PM Recent Procedure Details No resulted procedures found. FOLLOWUP: Follow-up Information Return in about 1 week (around 07/24/2024) for Acute symptom check. LOS Today OFFICE/OP EST LVL 3 LOW MDM/20-29 MIN Past medical, surgical, social and family history has been reviewed and updated as necessary. Medications and allergies has been reviewed and updated. I discussed all new medications and potential side effects or risks associated with them. Patient is to contact our office with any concerns. Patient instructions and educational materials were given to the patient. Patient (or patient sales representative printing supplies) demonstrates verbal understanding of instructions given. Patient should follow up with their PCP for general health maintenance needs. Patient should contact our office if their problems persist or call 911/go the to ER if issues become more persistent. If any referrals have been made, patient should contact our office with in 3-5 days if they have not heard anything from our referral team or the referring physician. documented in this encounter Plan of Treatment Upcoming Encounters Date Type Department Care Team (Late st Contact Info) Description 02/05/2025 8:00 AM CDT Office Visit [facility] - [facility] [address] [place] [address] Wali Pak MD [address] [place] [address] documented as of this encounter Visit Diagnoses Diagnosis Rash- Primary Rash and other nonspecific skin eruption Insect bite (nonvenomous) of abdominal wall, initial encounter Cellulitis, unspecified cellulitis site documented in this encounter Additional Health Concerns Assessment Noted Time PHQ-9 Depression Total Score: 0 02/07/20 24 7:57 AM CDT documented as of this encounter Care Teams Fuse Assembler Relationship Specialty Start Date End Date Wali Pak MD [address] [place] [address] PCP - General Internal Medicine 12/30/15 documented as of this encounter
--- OUTSIDE RECORDS SUMMARY | 2024-10-13 16:06 | XMS_ITS | Encounter Summary ---
Author Organization [facility] Address [address] [facility] [place] [address] Phone Care Team Providers Care Respite Coordinator Name Role Phone Wali Pak MD Primary Care Provider Reason for Visit * Reason Comments Medication Refill Encounter Details Date Type Department Care Team (Late st Contact Info) Description 01/06/2024 [facility]ill [facility] - [facility] - [place] [address] [place] [id number] Tereza Lujan, PAC [address] [address] Medication Refill Social History Tobacco Use Types Packs/Day Years Used Date Smoking Tobacco: Former Cigarettes 0.3 3 Smokeless Tobacco: Never Comments:social Alcohol Use Standard Drinks/Week Comments Yes 0 (1 standard drink = 0.6 oz pur e alcohol) social [facility] Utilities Answer Date Recorded In the past 12 months has [employer], gas, oil, or water [employer] threatened to shut off services in your home? Patient declined 10/11/2023 Social Connection and Isolation Panel [NHANES] A nswer Date Recorded In a typical week, how many times do you talk on the phone with family, friends, or neighbors? Patient declined 10/11/2023 How often do you get togethe r with friends or relatives? Patient declined 10/11/2023 How often do you attend confucianist or confucianist serv ices? Patient declined 10/11/2023 Do you [...] Total Score - Questions 1-9 0 09/24 [facility] - Occupational Stress [...] place to sleep or slept in a custodial (including now)? Patient declined 10/11/2023 Education Answer [...] Telephone Encounter - Enedelia Damon RN - 01/06/2024 9:03 AM CDT Medication(s) refilled and signed per [facility] Chronic Medication Refill Standing Order for Pediatricand Adult Patients. Requested Prescriptions Pending Prescriptions Disp Refills buPROPion (WELLBUTRIN) 100 MG Tablet [Pharmacy Med Name: BUPROPION HCL 100 MG TABLET] 180 Tablet 0 Sig: TAKE 1 TABLET BY MOUTH TWICE A DAY Bupropion (6 Month Refill Only) Protocol Passed - 01/06/2024 12:47 AM Passed - Visit with relevant provider in past 6 months or upcoming 90 days Recent Visits Date Type Provider Dept 10/11/23 Office Visit Wali Pak MD [facility] Showing recent visits within past 182 days and meeting all other requirements Future Appointments Date Type Provider Dept 01/10/24 Appointment Wali Pak MD [facility] Showing future appointments within next 90 days and meeting all other requirements Passed - Has an encounter in the past 6 months with a depression or anxiety visit diagnosis Passed - Patient has established therapy with Bupropion for at least 6 months documented in this encounter Plan of Treatment Upcoming Encounters Date Type Department Care Team (Late st Contact Info) Description 02/05/2025 8:00 AM CDT Office Visit [facility] - Internal Medicine [facility] [address] [place] [phone] Wali Pak MD [address] [place] [address] documented as of this encounter Visit Diagnoses Not on filedocumented in this encounter Additional Health Concerns Assessment Noted Time PHQ-9 Depression Total Score: 0 10/11/20 23 8:20 AM 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
--- OUTSIDE RECORDS SUMMARY | 2024-10-13 16:06 | XMS_ITS | Encounter Summary ---
Author Organization [facility] Address [address] [facility] [place] [address] Phone Care Team Providers Care Roads Supervisor Name Role Phone Wali Pak MD Primary Care Provider Reason for Visit * Reason Comments Medication Refill Encounter Details Date Type Department Care Team (Late st Contact Info) Description 04/08/2024 Refill [facility] - [facility] - [place] [address] [place] [phone] Tereza Lujan, PAC [address] [place] [address] Medication Refill Social History Tobacco Use Types Packs/Day Years Used Date Smoking Tobacco: Former Cigarettes 0.3 3 Passive Smoke Exposure: Past Smokeless Tobacco: Never Comments:social Alcohol Use Standard Drinks/Week Comments Yes 0 (1 standard drink = 0.6 oz pur e alcohol) social C Utilities Answer Date Recorded In the past 12 months has [employer], gas, oil, or water [employer] threatened to shut off services in your [...] How often do you attend chur or baptism services? More than 4 times per year 02/07/2024 Do you belong to any clubs o r organizations such as sikhism groups, unions, fraternal or athletic groups, or [...] Total Score - Questions 1-9 0 01/23 [facility] Occupat ional Health - Occupational Stress [...] place to sleep or slept in a care home (including now)? No 02/07/2024 Education Answer Date [...] Telephone Encounter - Enedelia Damon RN - 04/10/2024 9:22 AM CDT Medication(s) [facility] Med[facility] Refill Standing Order for Pediatricand Adult Patients. Requested Prescriptions Pending Prescriptions Disp Refills buPROPion (WELLBUTRIN) 100 MG Tablet [Pharmacy Med Name: BUPROPION HCL 100 MG TABLET] 180 Tablet 0 Sig: TAKE 1 TABLET BY MOUTH TWICE A DAY Bupropion (6 Month Refill Only) Protocol Passed - 04/08/2024 7:43 AM Passed - Visit with relevant provider in past 6 months or upcoming 90 days Recent Visits Date Type Provider Dept 02/07/24 Office Visit Wali Pak MD [facility] 10/11/23 [facility] recent visits within past 182 days and meeting all other requirements Future Appointments Date Type Provider Dept 05/08/24 Appointment Wali Pak MD [facility] Showing future appointments within next 90 [...] Description 02/05/2025 8:00 AM CDT Office Visit [facility] - Internal Medicine - [place] [address] [place] [phone] Wali Pak MD [address] [place] [address] documented as of this encounter Visit Diagnoses Not on filedocumented in this encounter Additional Health Concerns Assessment Noted Time PHQ-9 Depression Total Score: 0 02/07/20 24 7:57 AM CDT documented as of this encounter Care Teams Roads Supervisor Relationship Specialty Start Date End Date Wali Pak MD [address] [place] [address] PCP - General Internal Medicine 12/30/15 documented as of this encounter
--- OUTSIDE RECORDS SUMMARY | 2024-10-13 16:06 | XMS_ITS | Clinical Summary ---
Author Organization [facility] Address [address] [place] [address] Phone Care Team Providers Care Resident Doctor Name Role Phone Wali Pak MD Primary Care Provider Allergies Active Allergy Reactions Criticality Noted Date Comments Doxycycline Swelling 10/13/2024 Latex Rash Medium 12/30/2015 When wears latex herself Metformin Diarrhea 04/13/2023 Penicillins Rash Medium 12/30/2015 As a child / has had penicillin since then with no problems Medications aspirin EC 81 MG Tablet Delayed Response Take 81 mg by mouth daily. Active furosemide (LASIX) 20 MG Tablet TAKE 1 TABLET BY MOUTH DAILY NEEDED (SWELLING). 90 Tablet 3 Active Magnesium Gluconate 550 MG Tablet Take 30 mg by mouth. Active traZODone (DESYREL) 50 MG Tablet TAKE 1/2 TABLET BY MOUTH NIGHTLY 45 Tablet 4 Active buPROPion (WELLBUTRIN) 100 MG Tablet TAKE 1 TABLET BY MOUTH TWICE A DAY 180 Tablet 4 Active LORazepam (ATIVAN) 0.5 MG TabletIndication s:Generalized anxiety disorder Take 1 Tablet by mouth daily as needed for Anxiety. 15 Tablet 4 Active ciclopirox (LOPROX) 0.77 % Cream Apply 2 times daily. Apply to rash areas bid for 2 weeks 60 g 2 4 Active naproxen (NAPROSYN) 500 MG Tablet TAKE 1 TABLET BY MOUTH TWICE A DAY NEEDED FOR MILD OR MORE SEVERE PAIN 60 Tablet 1 4 Active azithromycin (ZITHROMAX) 250 MG Tablet Take 2 Tablets by mouth daily for 1 day, THEN 1 Tablet daily for 4 days. 2 tab(s) daily for 1 day, then 1 tab(s) daily for days 2-5. 6 Tablet 4 10/18/20 Active Doxycycline Monohydrate 100 MG Capsule take 1 capsule by mouth twice daily for 7 days 4 10/13/20 Discontinu ed(Allergi c response) Active Problems Problem Noted Date Diagnosed Date Primary insomnia 02/07/2024 Hypomagnesemia 10/11/2023 Type 2 diabetes mellitus wit hout complication, without long-term current use of insulin 08/10/2022 Other hyperlipidemia 01/19/2022 Bilateral lower extremity edema 01/19/2022 Paroxysmal atrial flutter 09/23/2020 Essential hypertension, benign 09/23/2020 Trigger thumb of right hand 12/27/2017 Generalized anxiety disorder 09/28/2013 Resolved Problems Problem Noted Date Diagnosed Date Resolved Date Restless leg syndrome 01/19/20222023 Other specified hypothyroidism 10/07/2020 04/13/2023 Encounters Date Type Department Care Team Description 10/13/2024 Telephone [facility] Internal [facility] [address] [place] [address] Wali Pak MD 08/01/2024 9:00 AM CDT Office Visit [facility] [address] [place] [address] Wali Pak MD Generalized anxiety disorder (Primary Dx); Bilateral lower extremity edema; Primary insomnia; Ulcer of lower extremity with fat layer exposed, right (HCC) Discharge Disposition: Discharged to home or Selfcare 08/01/2024 Travel 07/20/2024 Telephone [facility] Internal [facility] [address] [address] Wali Pak MD 07/17/2024 2:30 PM CDT Office Visit [facility] - [facility] - [place] [address] [facility] [place] [phone] Tereza Lujan PAC Rash (Primary Dx); Insect bite (nonvenomous) of abdominal wall, initial encounter; Cellulitis, unspecified cellulitis site Discharge Disposition: Discharged to home or Selfcare 07/17/2024 Travel from Last 3 Months Family History Medical History Relation Name Comments Diabetes Father Heart Disease Father No Known Problems Mother No Known Problems Sister Relation Name Status Comments Father Mother Alive Sister Alive Social History Tobacco Use Types Packs/Day Years Used Date Smoking Tobacco: Former Cigarettes 0.3 3 Passive Smoke Exposure: Past Smokeless Tobacco: Never Tobacco Cessation:Counseling Given: No Comments:social Alcohol Use Standard Drinks/Week Comments Yes 0 (1 standard drink = 0.6 oz pur e alcohol) social [employer] Utilities Answer Date Recorded In the past 12 months has [employer], gas, oil, or water [employer] threatened to shut off services in your [...] week 02/07/2024 How often do you attend [facility] or sabian[facility] services? More than 4 times per year 02/07/2024 Do you belong to any clubs o r organizations such as yarsanism groups, unions, fraternal or athletic groups, or [...] Total Score - Questions 1-9 0 01/23 [facility] - Occupational Stress Questionnaire Answer Date [...] place to sleep or slept in a halfway (including now)? No 02/07/2024 Education Answer Date [...] file Not on file Not on file Last Filed Vital Signs Vital Sign Reading Time Taken Comments Blood Pressure 130/70 08/01/2024 8:54 AM CDT Pulse 64 08/01/2024 8:54 AM CDT Temperature 36.6 ??C (97.9 ??F) 08/01/2024 8:54 AM CD T Respiratory Rate 12 07/17/2024 2:27 PM CDT Oxygen Saturation 99% 08/01/2024 8:54 AM CDT Inhaled Oxygen Concentration - - Weight 108.4 kg (239 lb) 08/01/2024 8:54 AM CDT Height 167.6 cm (5' 6 ) 08/01/2024 8:54 AM CDT Body Mass Index 38.58 08/01/2024 8:54 AM CDT Plan of Treatment Upcoming Encounters Date Type Department Care Team (Late st Contact Info) Description 02/05/2025 8:00 AM CDT Office Visit [facility] - [place] [address] [place] [id number] Wali Pak MD [address] [place] [address] Health Maintenance Due Date Last Done Comments Diabetes: Eye Exam 1965 Hepatitis C Virus (HCV) Screening 1965 TdaP Immunization 1963 Pneumococcal Immunization (50+ years) (1 of 2 - PCV) 1982 Colonoscopy 2008 Immunochemical Fecal Occult Blood 2013 Zoster Immunization (1 of 2) 2013 Diabetes: Foot Exam 04/13/2024 04/13/2023 SARS-COV-2 Immunization (2 - season) 2024 12/27/2020 Diabetes: Hemoglobin A1c 08/09/20242 024, 10/22/2023, 04/21/2023, Additional history exists Cologuard 10/22/2024 10/22/2021, 10/22/2021 Colorectal Cancer Screening 10/22/2024 Diabetes: Nephropathy Screening 03/16/2025 03/16/2024, 02/08/2024, 10/22/2023, Additional history exists Mammogram 05/26/2025 05/26/2023, 06/26, 12/10/2011 Respiratory Syncytial Virus (RSV) Immunization (Adult) (1 - 1-dose 75+ series) 2038 Hepatitis B Immunization Aged Out No longer eligible based on patient's age to complete this topic Influenza Immunization Discontinued Meningococcal Immunization (ACWY) Aged Out No longer eligible based on patient's age to complete this topic Rotavirus Immunization Aged Out No lo nger eligible based on patient's age to complete this topic Procedures Procedure Name Priority Date/Time Associated Diagnosis Comments LAB - MISCELLANEOUS 10/08/2024 1 2:00 AM SOILS ANALYST XR - CHEST 10/08/2024 12:00 AM SOILS ANALYST SARS-COV-2 BY MOLECULAR 10/08/2024 12:00 AM SOILS ANALYST CMP (COMPREHENSIVE METABOLIC PANEL) STAT 03/16/2024 12:40 PM CDT HEMOGLOBIN A1C W/ ESTIMATED GLUCOSE Routine 02/08/2024 7:10 AM CDT Type 2 diabetes mellitus without complication, without long-term current use of insulin (HCC) YECENIA SCREENING BILATERAL DIGITAL W CAD W SHY Routine 05/26/2023 7:55 AM CDT Visit for screening mammogram COLOGUARD Routine 10/22/2021 5:00 PM SOILS ANALYST Screening for colorectal cancer from Last 3 Months or Most Recently Relevant to Health Maintenance Results * XR - CHEST (10/08/2024 12:00 AM SOILS ANALYST) 10/08/2024 us Provider Scan IMG DIAGNOSTIC ORDERABLES Final Result SCAN * LAB - MISCELLANEOUS (10/08/2024 12:00 AM SOILS ANALYST) 10/08/2024 us Provider Scan CHEMISTRY ORDERABLES Final Resul t SCAN * SARS-COV-2 BY MOLECULAR (10/08/2024 12:00 AM SOILS ANALYST) 10/08/2024 us Provider Scan MICROBIOLOGY - GENERAL ORDERABLE S Final Result SCAN * (ABNORMAL) CMP (03/16/2024 12:40 PM CDT) SODIUM 142 136 - 145 mmol/L 03/16/2024 1:15 PM CDT [facility] POTASSIUM 3.9 3.5 - 5.1 mmol/L 03/16/2024 1:15 PM CDT [facility] CHLORIDE 109(H) 98 - 107 mmol/L 03/16/2024 1:15 PM CDT [facility] CO2, VENOUS 24 22 - 30 mmol/L 03/16/2024 1:15 PM CDT [facility] ANION GAP 12.9 <18.0 mmol/L 03/16/2024 1:15 PM CDT [facility] GLUCOSE 101(H) 70 - 99 mg/dL 03/16/2024 1:15 PM CDT [facility] BUN 13 10 - 20 mg/dL 03/16/2024 1:15 PM CDT [facility] CREATININE, BLOOD 0.71 0.60 - 1.00 mg/dL 03/16/2024 1:15 PM CDT [facility] BUN/CREATININE RATIO 18 12 - 20 ratio 03/16/2024 1:15 PM CDT [facility] TOTAL PROTEIN 7.0 6.3 - 8.2 g/dL 03/16/2024 1:15 PM CDT [facility] ALBUMIN 3.9 3.5 - 5.0 g/dL 03/16/2024 1:[address] [facility] A/G RATIO 1.3 1.0 - 2.2 03/16/2024 1:15 PM CDT [facility] CALCIUM 9.1 8.7 - 10.5 mg/dL 03/16/2024 1:15 PM CDT [facility] T BILI 0.6 0.2 - 1.2 mg/dL 03/16/2024 1:[address] [facility] SGOT (AST) 18 5 - 34 U/L 03/16/2024 1:[address] [facility] SGPT (ALT) 27 0 - 55 U/L 03/16/2024 1:15 PM CDT [facility] ALKALINE PHOSPHATASE 80 40 - 150 U/L 03/16/2024 1:15 PM CDT [facility] GFR, ESTIMATED >60 >=60 03/16/2024 1:[address] [facility] Comment: Creatinine Clearance is the preferred criteria for selecting drug dose adjustments in renally impaired patients. ??The GFR is provided as additional pertinent clinical information. GFR is reported in mL/min/1.73 sq m. Calculation based on the Chronic Kidney Disease Epidemiology Collaboration (CKD- EPI) equation refit without adjustment for race. GFR, EST. >60 >=60 024 1:15 PM CDT [facility] GFR, EST. NONAFRICAN >60 >=60 03/16/2024 1:[address] [facility] Blood Venipuncture / Unknown 03/16/2024 12:40 PM CDT 03/16/2024 12:47 PM CDT us Alexander Jarvis MD CHEMISTRY ORDERABLES F inal Result [facility] [address] [place] [address] * HEMOGLOBIN A1C W/ ESTIMATED GLUCOSE (02/08/2024 7:10 AM CDT) HGB-A1C 5.7 4.0 - 6.0 % 02/08/2024 3:17 PM CDT [facility] Est Average Glucose 116.9 mg/dL 02/08/2024 3:17 PM CDT [facility] Blood Venipuncture / Unknown 02/08/2024 7:10 AM CDT 02/08/2024 7:10 AM CDT Narrative [facility] - 02/08/2024 3:17 PM CDT HEMOGLOBIN A1C: DIABETIC PATIENTS: WELL-CONTROLLED: ?? 6.2 - 7.0 INTERMEDIATE WELL-CONTROLLED: ??7.0 - 9.0 POORLY-CONTROLLED: ??>9.0 Wali Pak MD CHEMISTRY ORDERABLES Final Result [facility] [address] [place] [address] * YECENIA SCREENING BILATERAL DIGITAL W CAD W SHY (05/26/2023 7:55 AM CDT) Anatomical Region Laterality Modality breast Bilateral Mammography 05/26/2023 7:36 AM CDT Narrative 05/27/2023 10:48 AM CDT - YECENIA SCREENING BILATERAL DIGITAL W CAD W SHY BILATERAL DIGITAL SCREENING MAMMOGRAM 3D/2D WITH CAD WITH MEDIOLATERAL OBLIQUE CRANIOCAUDAL: 05/26/2023 The study was acquired using digital technology and interpreted from soft copy. Current study was also evaluated with ICAD version 7.2. 2D digital mammographic views, as well as 3D digital tomosynthesis were performed in the CC and MLO projections. ?? CLINICAL: Routine screening. Patient has no complaints. No personal history of cancer. No family history of breast cancer. ?? COMPARISONS: Comparison is made to exams dated: ??07/14/2021 [facility], 10/04/2014, 09/22/2014, and 12/09/2011 [facility]. ?? BREAST TISSUE:There are scattered fibroglandular densities in both breasts. ?? FINDINGS: No significant masses, calcifications, or other findings are seen in either breast. ?? There has been no significant interval change. IMPRESSION: BI-RAD 1 NEGATIVE There is no mammographic evidence of malignancy. A 1 year screening mammogram is recommended. ?? A letter will be sent to the patient with these results. The patient will be entered into a reminder system with a target due date of 1 year for her next screening exam. Electronically signed by: Rosa Newton M.D. ? ll/penrad:05/26/2023 16:10:50 ?? Pure Culture Operator(s): Ines ?? MICKEY Manzano)(M), [facility] letter sent: Normal Exam ?? Reading location: [facility] BI-RADS: 1 Negative Procedure Note Rosa Newton MD - 05/27/2023 - YECENIA SCREENING BILATERAL DIGITAL W CAD W SHY BILATERAL DIGITAL SCREENING MAMMOGRAM 3D/2D WITH CAD WITH MEDIOLATERAL OBLIQUE CRANIOCAUDAL: 05/26/2023 The study was acquired using digital technology and interpreted from soft copy. Current study was also evaluated with ICAD version 7.2. 2D digital mammographic views, as well as 3D digital tomosynthesis were performed in the CC and MLO projections. CLINICAL: Routine screening. Patient has no complaints. No personal history of cancer. No family history of breast cancer. COMPARISONS: Comparison is made to exams dated: 07/14/2021 [facility], 10/04/2014, 09/22/2014, and 12/09/2011 [facility]. BREAST TISSUE:There are scattered fibroglandular densities in both breasts. FINDINGS: No significant masses, calcifications, or other findings are seen in either breast. There has been no significant interval change. IMPRESSION: BI-RAD 1 NEGATIVE There is no mammographic evidence of malignancy. A 1 year screening mammogram is recommended. A letter will be sent to the patient with these results. The patient will be entered into a reminder system with a target due date of 1 year for her next screening exam. Electronically signed by: Rosa henriquez/jimmy:05/26/2023 16:10:50 Pure Culture Operator(s): RT Phi(R)(M), [facility] letter sent: Normal Exam Reading location: [place] BI-RADS: 1 Negative Wali Pak MD IMG MAMMO ORDERABLES Final Result * COLOGUARD (10/22/2021 5:00 PM SOILS ANALYST) Cologuard Negative Negative [facility] Comment: NEGATIVE TEST RESULT. A negative Cologuard result indicates a low likelihood that a colorectal cancer (CRC) or advanced adenoma (adenomatous polyps with more advanced pre-malignant features) ??is present. The chance that a person with a negative Cologuard test has a colorectal cancer is less than 1 in 1500 (negative predictive value >99.9%) or has an ??advanced adenoma is less than ?? 5.3% (negative predictive value 94.7%). These data are based on a prospective cross-sectional study of 10,000 individuals at average risk for colorectal cancer who were screened with both Cologuard and colonoscopy. (Kaila Estrada. et al, N Engl J Med 2014;370(14):4612-7022) The normal value (reference range) for this assay is negative. COLOGUARD RE-SCREENING RECOMMENDATION: Periodic colorectal cancer screening is an important part of preventive healthcare for asymptomatic individuals at average risk for colorectal cancer. ??Following a negative Cologuard result, the [place] Cancer Society and U.S. Multi-Society Task Force screening guidelines recommend a Cologuard re-screening interval of 3 years. References: [place] [employer] Guideline for Colorectal Cancer Screening: https://www.cancer.org/cancer/virey-gjotjy-sabnck/vneygzgrl-saksmtwtb-ptlrkyq/ acs-recommendations.html.; Markos PASTOR, Gricelda CASTLE, Gualberto VAZQUEZ, Colorectal Cancer Screening: Recommendations for Physicians and Patients from the U.S. Multi-Society Task Force on Colorectal Cancer Screening , Am J Gastroenterology 2017; 112:2895-0918. TEST DESCRIPTION: Composite algorithmic analysis of stool DNA-biomarkers with hemoglobin immunoassay. ?? Quantitative values of individual biomarkers are not reportable and are not associated with individual biomarker result reference ranges. Cologuard is intended for colorectal cancer screening of adults of either sex, 45 years or older, who are at average-risk for colorectal cancer (CRC). Cologuard has been approved for use by the U.S. FDA. The performance of Cologuard was established in a cross sectional study of average-risk adults aged 50-84. Cologuard performance in patients ages 45 to 49 years was estimated by sub-group analysis of near-age groups. Colonoscopies performed for a positive result may find as the most clinically significant lesion: colorectal cancer [4.0%], advanced adenoma (including sessile serrated polyps greater than or equal to 1cm diameter) [20%] or non- advanced adenoma [31%]; or no colorectal neoplasia [45%]. These estimates are derived from a prospective cross-sectional screening study of 10,000 individuals at average risk for colorectal cancer who were screened with both Cologuard and colonoscopy. (Kaila Silveira et al, N Engl J Med 2014;370(14):7160-1807.) Cologuard may produce a false negative or false positive result (no colorectal cancer or precancerous polyp present at colonoscopy follow up). A negative Cologuard test result does not guarantee the absence of CRC or advanced adenoma (pre-cancer). The current Cologuard screening interval is every 3 years. ([place] [employer] Society and U.S. Multi-Society Task Force). Cologuard performance data in a 10,000 patient pivotal study using colonoscopy as the reference method can be accessed at the following location: www.[employer]/results. Additional description of the Cologuard test process, warnings and precautions can be found at www.[employer].com. Stool 10/22/2021 5:00 PM SOILS ANALYST 10/24/2021 9:08 AM SOILS ANALYST us Wali Pak MD BODY FLUIDS & STOOLS ORDERA BLES Final Result [employer] [address] [place], [place] [address] [phone] [employer] [place] [address] from Last 3 Months or Most Recently Relevant to Health Maintenance Insurance [employer] [place] [id number] PA TPL Care Teams Resident Doctor Relationship Specialty Start Date End Date Wali Pak MD [address] [place] [address] PCP - General Internal Medicine 12/30/15
--- OUTSIDE RECORDS SUMMARY | 2024-10-13 16:06 | XMS_ITS | Encounter Summary ---
Author Organization [facility] Address [address] [facility] [place] [address] Phone Care Team Providers Care Seam Presser Name Role Phone Wali Pak MD Primary Care Provider Reason for Visit * Reason Onset Date Comments Medication Refill 01/25/2024 Encounter Details Date Type Department Care Team (Late st Contact Info) Description 01/25/2024 Refill [facility] - [facility] [address] [place] [address] Wali Pak MD [address] [place] [place] [address] Medication Refill Social History Tobacco Use Types [...] How often do you attend chur or sikhism services? More than 4 times per year 02/07/2024 Do you belong to any clubs o r organizations such as sikh groups, unions, fraternal or athletic groups, or [...] Total Score - Questions 1-9 0 01/23 [facility] - Occupational Stress [...] on one occasion? Never 02/07/2024 8:00 AM Dayana Cruz CMA * Question Answer Date of Assessment Author Little interest or pleasure in doing things Not at all 02/07/2024 7:57 AM Dayana Cruz CMA Feeling down, depressed, or hopeless Not at all 02/07/2024 7:57 AM Dayana Cruz CMA * Over the past 2 weeks, how often have you been bothered by any of the following problems? Question Answer Date of Assessment Author Patient Health Questionnaire -2 Score 0 02/07/2024 7:57 AM Dayana Cruz CMA documented as of this encounter Miscellaneous Notes * Telephone Encounter - Enedelia Damon RN - 01/25/2024 2:04 PM CDT Medication failed the protocol, provider to review and approve the medication order if appropriate. Requested Prescriptions Pending Prescriptions Disp Refills LORazepam (ATIVAN) 0.5 MG Tablet 15 Tablet 0 Sig: Take 1 Tablet by mouth daily as needed for Anxiety. Not Delegated - Benzodiazepines Protocol Failed - 01/25/2024 1:57 PM Failed - This refill cannot be delegated Passed - Visit with relevant provider in past 12 months or upcoming 90 days Recent Visits Date Type Provider Dept 10/11/23 Office Visit Wali Pak MD [facility] 04/13/23 Office Visit Wali Pak MD [facility] Showing recent visits within past 365 days and meeting all other requirements Future Appointments Date Type Provider Dept 02/07/24 Appointment Wali Pak MD [facility] Showing future appointments within next 90 days and meeting all other requirements naproxen (NAPROSYN) 500 MG Tablet 60 Tablet 0 Sig: TAKE 1 TABLET BY MOUTH TWICE A DAY NEEDED FOR MILD OR MORE SEVERE PAIN NSAIDs Protocol Passed - 01/25/2024 1:57 PM Passed - Normal serum creatinine in past 12 months CREATININE, BLOOD Date Value Ref Range Status 10/22/2023 0.73 0.60 - 1.00 mg/dL Final Passed - Visit with relevant provider in past 12 months or upcoming 90 days Recent Visits Date Type Provider Dept 10/11/23 Office Visit Wali Pak MD [facility] 04/13/23 Office Visit Wali Pak MD [facility] Showing recent visits within past 365 days and meeting all other requirements Future Appointments Date Type Provider Dept 02/07/24 Appointment Wali Pak MD [facility] Showing future appointments within next 90 days and meeting all other requirements Passed - No matching NSAID med order in past 45 days No matching medication orders between 12/11/2023 2:04 PM and 01/25/2024 2:04 PM Passed - AST less than 55 or ALT less than 90 in past 12 months SGOT (AST) Date Value Ref Range Status 10/22/2023 16 5 - 34 U/L Final SGPT (ALT) Date Value Ref Range Status 10/22/2023 22 0 - 55 U/L Final Passed - HGB greater than 10 or HCT greater than 30 in past 12 months HEMOGLOBIN (HGB) Date Value Ref Range Status 07/29/2023 13.2 12.0 - 15.8 g/dL Final HEMATOCRIT (HCT) Date Value Ref Range Status 07/29/2023 42.2 36.0 - 47.0 % Final * Telephone Encounter - Payton Burns - 01/25/2024 1:55 PM CDT Med rf Medication - lorazepam Naproxen Phone - [phone] Pharmacy - [facility] [place] documented in this encounter Plan of Treatment Upcoming Encounters Date Type Department Care Team (Late st Contact Info) Description 02/05/2025 8:00 AM CDT Office Visit [facility] [place] [address] [place] [address] Wali Pak MD [address] [place] [address] documented as of this encounter Visit Diagnoses Diagnosis Generalized anxiety disorder documented in this encounter Additional Health Concerns Assessment Noted Time PHQ-9 Depression Total Score: 0 10/11/20 23 8:20 AM HEAD OF TALENT MANAGEMENT documented as of this encounter Care Teams Seam Presser Relationship Specialty Start Date End Date Wali Pak MD [address] [place] [address] PCP - General Internal Medicine 12/30/15 documented as of this encounter
--- OUTSIDE RECORDS SUMMARY | 2024-10-13 16:06 | XMS_ITS | Encounter Summary ---
Author Organization [facility] Address [address] [facility] 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 Role Phone Wali Pak MD Primary Care Provider Reason for Visit * Reason Comments Dizziness Encounter Details Date Type Department Care Team (Late st Contact Info) Description 03/16/2024 11:42 AM CDT - 03/16/2024 3:17 PM CDT Emergency [facility] Emergency [address] [place] [address] Alexander Jarvis MD [address] [place] [address] Peripheral vertigo, unspecified laterality Discharge Disposition: Discharged to home or Selfcare Social History Tobacco Use Types Packs/Day Years Used Date Smoking Tobacco: Former Cigarettes 0.3 3 Passive Smoke Exposure: Past Smokeless Tobacco: Never Comments:social Alcohol Use Standard Drinks/Week Comments Yes 0 (1 standard drink = 0.6 oz pur e alcohol) social C Utilities Answer Date Recorded In the past 12 months has [employer] electric, gas, oil, or water company threatened [...] often do you attend chur ch or jehovah's witness services? More than 4 times per year 02/07/2024 Do you belong to any clubs o r organizations such as taoist groups, unions, fraternal or athletic groups, or [...] Score - Questions 1-9 0 01/23 [facility] - Occupational Stress Questionnaire Answer Date Recorded [...] Sign Reading Time Taken Comments Blood Pressure 134/62 03/16/2024 2:30 PM CDT Pulse 74 03/16/2024 3:00 PM CDT Temperature 36.4 ??C (97.5 ??F) 03/16/2024 11:48 AM C DT Respiratory Rate 15 03/16/2024 3:00 PM CDT Oxygen Saturation 99% 03/16/2024 3:00 PM CDT Inhaled Oxygen Concentration - - Weight 106.6 kg (235 lb) 03/16/2024 11:46 AM CDT Height 167.6 cm (5' 6 ) 03/16/2024 11:46 AM CDT Body Mass Index 37.93 03/16/2024 11:46 AM CDT documented in this encounter Medications at Time of Discharge aspirin EC 81 MG Tablet Delayed Response Take 81 mg by mouth daily. furosemide (LASIX) 20 MG Tablet TAKE 1 TABLET BY MOUTH DAILY NEEDED (SWELLING). 90 Tablet 04/12/2023 Magnesium Gluconate 550 MG Tablet Take 30 mg by mouth. traZODone (DESYREL) 50 MG Tablet TAKE 1/2 TABLET BY MOUTH NIGHTLY 45 Tablet 12/30/2023 buPROPion (WELLBUTRIN) 100 MG Tablet TAKE 1 TABLET BY MOUTH TWICE A DAY 180 Tablet 01/06/2024 4 Ljxusnwpod-IFVS-L affeine 50-300-40 MG CapsuleIndication s:Peripheral vertigo, unspecified laterality Take 1 Capsule by mouth every 4 hours as needed for Other (headache) for up to 10 days. 10 Capsule 03/16/2024 4 LORazepam (ATIVAN) 0.5 MG TabletIndications :Generalized anxiety disorder Take 1 Tablet by mouth daily as needed for Anxiety. 15 Tablet 01/25/2024 4 meclizine (ANTIVERT) 25 MG Tablet Take 1 Tablet by mouth 3 times daily for 4 days, THEN 1 Tablet 3 times daily as needed for Dizziness for up to 26 days. 40 Tablet 03/16/2024 4 naproxen (NAPROSYN) 500 MG Tablet TAKE 1 TABLET BY MOUTH TWICE A DAY NEEDED FOR MILD OR MORE SEVERE PAIN 60 Tablet 02/21/2024 4 ondansetron (ZOFRAN) 4 MG Tablet Take 1-2 Tablets by mouth every 8 hours as needed for Nausea - 1st line for up to 7 days. 20 Tablet 03/16/2024 4 documented as of this encounter ED Notes * Safia Jones RN - 03/16/2024 3:15 PM CDT Patient discharged. Discharge instructions and patient educational material reviewed with patient; questions and concerns addressed; patient verbalizes understanding, using teach back. Patient was given 3 prescriptions. Patient was informed no drinking alcohol, driving or operating heavy machinery while taking narcotics or muscle relaxants. Patient discharged per wheelchair mode with daughter as responsible republican. No distress noted. * Carmencita Lu RN - 03/16/2024 2:43 PM CDT Provider at bedside. * Carmencita Lu RN - 03/16/2024 2:00 PM CDT Patient is resting in room with call light at bedside. Patient informed about wait time and verbalizes understanding. Patient denies needs at this time and verbalizes understanding that RN will complete hourly rounding. * Carmencita Lu RN - 03/16/2024 12:48 PM CDT Pt medicated per provider orders. Pt educated on intended effects and side effects of medication and verbalized understanding. Pt able to provide teach- back of education. * Carmencita Lu RN - 03/16/2024 12:32 PM CDT Pt medicated per provider orders. Pt educated on intended effects and side effects of medication and verbalized understanding. Pt able to provide teach- back of education. * Alexandre Jarvis MD - 03/16/2024 11:50 AM CDTAssociated Order(s): EKG 12 LEAD Chief Complaint Patient presents with Dizziness 58-year-old female presenting to the emergency department by EMS with vertiginous dizziness. She was in her usual state of health this morning, and then around 7:00 a.m. developed vertiginous dizziness, feeling of tipping with the side and symptoms worsened by movement of the head standing up or moving around, does not feel like presyncopal or lightheaded dizziness. He had an associated headache develop as well. She has no history of stroke, does not take any blood thinning medications. Denies chest pain or shortness of breath. She has not had nausea or vomiting. Current Facility-Administered Medications Medication Dose Route Frequency Provider Last Rate Last Admin gholcwyhag-jsopqthoobsub-kanzgigp (FIORICET, ESGIC) 50-325-40 MG per tablet 1 Tablet 1 Tablet Oral Once Alexander Jarvis MD Current Outpatient Medications Medication Sig Dispense Refill aspirin EC 81 MG Tablet Delayed Response Take 81 mg by mouth daily. buPROPion (WELLBUTRIN) 100 MG Tablet TAKE 1 TABLET BY MOUTH TWICE A DAY 180 Tablet 0 Kxyqlzoqit-DFJJ-Kbfttzrp 50-300-40 MG Capsule Take 1 Capsule by mouth every 4 hours as needed for Other (headache) for up to 10 days. 10 Capsule 0 furosemide (LASIX) 20 MG Tablet TAKE 1 TABLET BY MOUTH DAILY NEEDED (SWELLING). 90 Tablet 0 LORazepam (ATIVAN) 0.5 MG Tablet Take 1 Tablet by mouth daily as needed for Anxiety. 15 Tablet 0 Magnesium Gluconate 550 MG Tablet Take 30 mg by mouth. meclizine (ANTIVERT) 25 MG Tablet Take 1 Tablet by mouth 3 times daily for 4 days, THEN 1 Tablet 3 times daily as needed for Dizziness for up to 26 days. 40 Tablet 0 naproxen (NAPROSYN) 500 MG Tablet TAKE 1 TABLET BY MOUTH TWICE A DAY NEEDED FOR MILD OR MORE SEVERE PAIN 60 Tablet 0 ondansetron (ZOFRAN) 4 MG Tablet Take 1-2 Tablets by mouth every 8 hours as needed for Nausea - 1stline for up to 7 days. 20 Tablet 0 traZODone (DESYREL) 50 MG Tablet TAKE 1/2 TABLET BY MOUTH NIGHTLY 45 Tablet 0 Allergies Allergen Reactions Latex Rash When wears latex herself Penicillins Rash As a child / has had penicillin since then with no problems Metformin Diarrhea Past Medical History Positives Diagnosis Date Hypertension Past Surgical History: Procedure Laterality Date APPENDECTOMY FINGER TRIGGER RELEASE Right 12/27/2017 Procedure: TRIGGER FINGER RELEASE RIGHT MIDDLE FINGER; Surgeon: Duran Marmolejo MD; Location: [facility]; Service: Orthopaedic HYSTERECTOMY KNEE ARTHROSCOPY 2013 Social History Socioeconomic History Marital status: Spouse name: Not on file Number of children: Not on file Years of education: Not on file Highest education level: Some college, no degree Occupational History 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 Tobacco Use Smoking status: Former Packs/day: 0.25 Years: 3.00 Additional pack years: 0.00 Total pack years: 0.75 Types: Cigarettes Passive exposure: Past Smokeless tobacco: Never Tobacco comments: social Vaping Use Vaping Use: Never used Substance and Sexual Activity Alcohol use: Yes Comment: social Drug use: No Sexual activity: Not Currently Other Topics Concern Not on file Social History Narrative Not on file Social Determinants of Health Financial Resource Needs: Low Risk (02/07/2024) Overall Financial Resource Strain (CARDIA) Difficulty of Paying Living Expenses: Not hard at all Recent Concern: Financial Resource Needs - Medium Risk (02/06/2024) Overall Financial Resource Strain (CARDIA) Difficulty of Paying Living Expenses: Somewhat hard Food Insecurity Needs: No Food Insecurity (02/07/2024) Hunger Vital Sign Worried About Running Out of Food in the Last Year: Never true Ran Out of Food in the Last Year: Never true Transportation Needs: No Transportation Needs (02/07/2024) PRAPARE - Transportation Lack of Transportation (Medical): No Lack of Transportation (Non-Medical): No Physical Activity: Inactive (02/07/2024) Exercise Vital Sign Days of Exercise per Week: 0 days Minutes of Exercise per Session: 0 min Stress: No Stress Concern Present (02/07/2024) [employer] [place] [facility] [employer] - Occupational Stress Questionnaire Feeling of Stress : Not at all Social Integration: Socially Integrated (02/07/2024) Social Connection and Isolation Panel [NHANES] Frequency of Communication with Friends and Family: More than three times a week Frequency of Social Gatherings with Friends and Family: More than three times a week Attends Rastafarian Services: More than 4 times per year Active Member of Clubs or Organizations: Yes Attends Club or Organization Meetings: More than 4 times per year Marital Status: Intimate Partner Violence: Not At Risk (02/07/2024) Humiliation, Afraid, Rape, and Kick questionnaire Fear of Current or Ex-Partner: No Emotionally Abused: No Physically Abused: No Sexually Abused: No Housing Stability: Low Risk (02/07/2024) Housing Stability Vital Sign Unable to Pay for Housing in the Last Year: No Number of Places Lived in the Last Year: 2 Unstable Housing in the Last Year: No BP (!) 128/105 Pulse 75 Temp 97.5 ??F (36.4 ??C) (Tympanic) Resp 13 Ht 5' 6 (1.676 m) Wt235 lb (106.6 kg) SpO2 100% BMI 37.93 kg/m?? Review of Systems Constitutional: Negative for activity change, chills and fever. Respiratory: Negative for shortness of breath, wheezing and stridor. Gastrointestinal: Negative for abdominal pain, diarrhea and nausea. Neurological: Positive for dizziness and headaches. All other systems reviewed and are negative. Physical Exam Vitals and nursing note reviewed. HENT: Head: Normocephalic and atraumatic. Mouth/Throat: Mouth: Mucous membranes are moist. Eyes: Extraocular Movements: Extraocular movements intact. Conjunctiva/sclera: Conjunctivae normal. Cardiovascular: Rate and Rhythm: Normal rate and regular rhythm. Pulmonary: Effort: Pulmonary effort is normal. Abdominal: General: Abdomen is flat. Palpations: Abdomen is soft. Musculoskeletal: General: Normal range of motion. Cervical back: Normal range of motion. Skin: General: Skin is warm and dry. Capillary Refill: Capillary refill takes less than 2 seconds. Neurological: General: No focal deficit present. Mental Status: She is alert and oriented to person, place, and time. Cranial Nerves: No cranial nerve deficit. Sensory: No sensory deficit. Psychiatric: Behavior: Behavior normal. EKG 12 LEAD Performed by: Alexander Jarvis MD Authorized by: Alexander Jarvis MD Interpretation: Interpretation: non-specific Rate: ECG rate: 81 ECG rate assessment: normal Rhythm: Rhythm: sinus rhythm Ectopy: Ectopy: none QRS: QRS axis: Normal QRS intervals: Normal QRS conduction: normal ST segments: ST segments: Normal T waves: T waves: normal Other findings: Other findings: poor R wave progression Recent Results (from the past 24 hour(s)) CMP Result Value Ref Range SODIUM 142 136 - 145 mmol/L POTASSIUM 3.9 3.5 - 5.1 mmol/L CHLORIDE 109 (H) 98 - 107 mmol/L CO2, VENOUS 24 22 - 30 mmol/L ANION GAP 12.9 <18.0 mmol/L GLUCOSE 101 (H) 70 - 99 mg/dL BUN 13 10 - 20 mg/dL CREATININE, BLOOD 0.71 0.60 - 1.00 mg/dL BUN/CREATININE RATIO 18 12 - 20 ratio TOTAL PROTEIN 7.0 6.3 - 8.2 g/dL ALBUMIN 3.9 3.5 - 5.0 g/dL A/G RATIO 1.3 1.0 - 2.2 CALCIUM 9.1 8.7 - 10.5 mg/dL T BILI 0.6 0.2 - 1.2 mg/dL SGOT (AST) 18 5 - 34 U/L SGPT (ALT) 27 0 - 55 U/L ALKALINE PHOSPHATASE 80 40 - 150 U/L GFR, ESTIMATED >60 >=60 GFR, EST. >60 >=60 GFR, EST. NONAFRICAN >60 >=60 Magnesium Result Value Ref Range MAGNESIUM 2.0 1.6 - 2.6 mg/dL TROPONIN I, HIGH SENSITIVITY (HSTRP) Result Value Ref Range TROPONIN I, HIGH SENSITIVITY- [place]Z <3 <=14 ng/L CBC with Auto Differential Result Value Ref Range WBC 6.82 4.00 - 12.00 10(3)/mcL RBC 4.41 3.80 - 5.30 10(6)/mcL HEMOGLOBIN (HGB) 13.1 12.0 - 15.8 g/dL HEMATOCRIT (HCT) 40.2 36.0 - 47.0 % MCV 91.2 82.0 - 96.0 fL MCH 29.7 26.0 - 34.0 pg MCHC 32.6 31.0 - 36.0 g/dL PLATELET COUNT 247 140 - 440 10(3)/mcL RDW 13.7 11.8 - 15.5 % MPV 10.0 9.7 - 12.4 fL NEUTROPHILS 62.3 47.0 - 73.0 % LYMPHOCYTES 26.1 18.0 - 42.0 % MONOCYTES 6.6 4.0 - 12.0 % EOSINOPHILS 4.3 0.0 - 5.0 % BASOPHILS 0.7 0.0 - 1.0 % ABSOLUTE NEUTROPHILS 4.25 1.60 - 7.70 10(3)/mcL ABSOLUTE LYMPHOCYTES 1.78 1.30 - 3.20 10(3)/mcL ABSOLUTE MONOCYTES 0.45 0.20 - 1.00 10(3)/mcL ABSOLUTE EOSINOPHIL 0.29 0.00 - 0.40 10(3)/mcL ABSOLUTE BASOPHILS 0.05 0.00 - 0.10 10(3)/mcL NRBC PER 100 WBC 0 POCT Creatinine Result Value Ref Range CREATININE - POCT 0.6 0.6 - 1.3 mg/dL Imaging Results CT ANGIO HEAD AND NECK WWO CONTRAST W PP (Final result) Result time 03/16/24 14:09:09 Final result by Doe Garcia MD (03/16/24 14:09:09) Impression: IMPRESSION: 1. No acute intracranial process. 2. No occlusion, focal stenosis, or aneurysm of the intracranial arterial vasculature. 3. No occlusion, stenosis, or dissection of the cervical arterial vasculature. Narrative: EXAM DESCRIPTION: CT ANGIO HEAD AND NECK WWO CONTRAST W PP REASON FOR STUDY: Acute headache and dizziness beginning this morning at 07:00. No provided history of focal neurologic deficits. No provided history of trauma or inciting and/or aggravating events. No provided past surgical history. TECHNIQUE: Axial images were first obtained through the brain without contrast. Post IV contrast scanning, thin section axial imaging from the great vessel origins through the brain. 3D MIP images rendered on scanning unit and reviewed at time of interpretation. Carotid stenosis measurements are based on NASCET criteria. Automated exposure control was used as a dose optimization technique for this examination. CONTRAST TYPE/DOSE: 100 mL Isovue 370 injected via left AC without reported incident. COMPARISON: Relevant portions of cervical spine radiograph 11/14/2018; CT head without contrast 02/17/2014 and 06/20/2011. FINDINGS: BRAIN: BRAIN: No acute intra-axial hemorrhage. No edema, mass effect, midline shift, or herniation. No suspicious focal white matter lesions with preservation of the lawton-white junction. No evidence of acute territorial ischemia/infarct. EXTRA-AXIAL SPACES: No extra-axial fluid collection. No extra-axial mass. ORBITS: No acute abnormality. Ocular lenses and globes normal in conformation and position. CALVARIUM: No acute calvarial fracture. PARANASAL SINUSES AND MASTOIDS: No fluid or mucosal thickening. CAROTID AND VERTEBRAL ARTERIES: RIGHT CAROTIDS: No occlusion, stenosis, or evidence of dissection of the right carotid arterial system. LEFT CAROTIDS: Occlusion, stenosis, or evidence of dissection of the left carotid arterial system. RIGHT VERTEBRAL: Patent without evidence of stenosis or dissection. LEFT VERTEBRAL: Patent without evidence of stenosis or dissection. AORTIC ARCH: Three-vessel aortic arch. Patent subclavian arteries. INCLUDED LUNGS: No acute abnormality. NECK SOFT TISSUE: No acute abnormality. OTHER: No other significant finding. INTRACRANIAL VESSELS: [place]: The anterior, middle, posterior cerebral arteries are all patent. No focal stenosis or aneurysm. POSTERIOR CIRCULATION: The distal vertebral arteries are patent as is the basilar artery. No aneurysm. BRAIN: No gross evidence of enhancing intracranial lesions. THIS IS AN ELECTRONICALLY VERIFIED FINAL REPORT 03/16/2024 2:06 PM - Electronically signed by Doe Garcia M.D. ANUP: ANUP Report ID: [id number] Reading Location: [id number] Medical Decision Making 58-year-old female presenting to the emergency department with vertiginous dizziness and headache, no other focal neurologic deficits are present, likely peripheral vertigo, will proceed with intracranial imaging including CT angiogram to ensure that there has no vertebral artery or basilar artery v ascular malformation or abnormality, in the interim treat symptomatically. EKGs unremarkable for acute coronary type. She has no chest pain or shortness of breath. Amount and/or Complexity of Data Reviewed Labs: ordered. Decision-making details documented in ED Course. Details: No significant metabolic or hematologic abnormalities Radiology: ordered and independent interpretation performed. Decision-making details documented in ED Course. Details: No obvious intracranial abnormality is on my visualization ECG/medicine tests: ordered and independent interpretation performed. Decision- making details documented in ED Course. Details: No acute or chronic ischemic changes Risk Prescription drug management. Decision regarding hospitalization. Risk Details: No indication for hospitalization, this appears to be a peripheral vertigo, DC with outpatient management/symptomatic treatment and PCP follow-up. Clinical Impression 1. Peripheral vertigo, unspecified laterality Disposition: Discharge * Carmencita Lu RN - 03/16/2024 11:49 AM CDT Patient arrived via EMS with report of dizziness new onset at 7 am. Patient then states her head began hurting. She report sharp pain between shoulder blades. Denies N/V. * Yaz Schaeffer - 03/16/2024 11:42 AM CDT Bed: ED03-01 Expected date: 03/16/24 Expected time: 11:27 AM Means of arrival: Ambulance ([facility]) Comments: 4A25 [facility] 58F DIZZINESS SINCE THIS AM documented in this encounter Miscellaneous Notes * [facility] Patient Instructions - Alexander Jarvis MD - 03/16/2024 2:51 PM CDT Images from the original note were not included. Patient Education Table of Contents Vertigo To view videos and all your education online visit, [email or web address] or scan this QR code with your smartphone. Access to this content will in one year. Vertigo Vertigo is the feeling that you or your surroundings are moving when they are not. This feeling cancome and go at any time. Vertigo often goes away on its own. Vertigo can be dangerous if it occurs while you are doing something that could endanger yourself or others, such as driving or operating machinery. Your health care provider will do tests to try to determine the cause of your vertigo. Tests will also help your health care provider decide how best to treat your condition. Follow these instructions at home: Eating and drinking Dehydration can make vertigo worse. Drink enough fluid to keep your urine pale yellow. Do not drink alcohol. Activity Return to your normal activities as told by your health care provider. Ask your health care provider what activities are safe for you. In the morning, first sit up on the side of the bed. When you feel okay, stand slowly while you hold onto something until you know that your balance is fine. Move slowly. Avoid sudden body or head movements or certain positions, as told by your health care provider. If you have trouble walking or keeping your balance, try using a cane for stability. If you feel dizzy or unstable, sit down right away. Avoid doing any tasks that would cause danger to you or others if vertigo occurs. Avoid bending down if you feel dizzy. Place items in your home so that they are easy for you to reach without bending or leaning over. Do not drive or use machinery if you feel dizzy. General instructions Take tgws-sbm-incarvr and prescription medicines only as told by your health care provider. Keep all follow-up visits. This is important. Contact a health care provider if: Your medicines do not relieve your vertigo or they make it worse. Your condition gets worse or you develop new symptoms. You have a fever. You develop nausea or vomiting, or if nausea gets worse. Your family or friends notice any behavioral changes. You have numbness or a prickling and tingling sensation in part of your body. Get help right away if you: Are always dizzy or you faint. Develop severe headaches. Develop a stiff neck. Develop sensitivity to light. Have difficulty moving or speaking. Have weakness in your hands, arms, or legs. Have changes in your hearing or vision. These symptoms may represent a serious problem that is an emergency. Do not wait to see if the symptoms will go away. Get medical help right away. Call your local emergency services (911 in the [place] Do not drive yourself to the hospital. Summary Vertigo is the feeling that you or your surroundings are moving when they are not. Your health care provider will do tests to try to determine the cause of your vertigo. Follow instructions for home care. You may be told to avoid certain tasks, positions, or movements. Contact a health care provider if your medicines do not relieve your symptoms, or if you have a fever, nausea, vomiting, or changes in behavior. Get help right away if you have severe headaches or difficulty speaking, or you develop hearing or vision problems. This information is not intended to replace advice given to you by your health care provider. Make sure you discuss any questions you have with your health care provider. Document Released: 2006-07-21 Document Updated: 2021-09-10 Document Reviewed: 2021-09-10 [employer] Patient Education ? 2023 [employer] documented in this encounter Plan of Treatment Upcoming Encounters Date Type Department Care Team (Late st Contact Info) Description 02/05/2025 8:00 AM CDT Office Visit [facility] - Internal Medicine - [place] [address] [place] [address] Wali Pak MD [address] [place] [address] documented as of this encounter Procedures Procedure Name Priority Date/Time Associated Diagnosis Comments CT ANGIO HEAD AND NECK WWO CONTRAST W PP Stat with Interpretation 03/16/2024 1:36 PM CDT POCT CREATININE STAT 03/16/2024 12:47 PM CDT TROPONIN I, HIGH SENSITIVITY (HSTRP) STAT 03/16/2024 12:40 PM CDT CBC WITH AUTO DIFFERENTIAL STAT 03/16/2024 12:40 PM CDT MAGNESIUM (MG) STAT 03/16/2024 12:40 PM CDT CMP (COMPREHENSIVE METABOLIC PANEL) STAT 03/16/2024 12:40 PM CDT COMPLETE BLOOD COUNT (CBC) WITH DIFF STAT 03/16/2024 12:40 PM CDT EKG 12 LEAD STAT 03/16/2024 11:40 AM CDT EKG SCAN 03/16/2024 12:00 AM CDT documented in this encounter Results * CT ANGIO HEAD AND NECK WWO CONTRAST W PP (03/16/2024 1:36 PM CDT) Anatomical Region Laterality Modality vascular N/A Computed Tomogra phy 03/16/2024 2:06 PM CDT Impressions 03/16/2024 2:09 PM CDT IMPRESSION: 1. ?? No acute intracranial process. 2. ?? No occlusion, focal stenosis, or aneurysm of the intracranial arterial vasculature. 3. ?? No occlusion, stenosis, or dissection of the cervical arterial vasculature. Narrative 03/16/2024 2:09 PM CDT EXAM DESCRIPTION: ?? CT ANGIO HEAD AND NECK WWO CONTRAST W PP REASON FOR STUDY: Acute headache and dizziness beginning this morning at 07:00. ??No provided history of focal neurologic deficits. No provided history of trauma or inciting and/or aggravating events. ?? No provided past surgical history. TECHNIQUE: Axial images were first obtained through the brain without contrast. ??Post IV contrast scanning, thin section axial imaging from the great vessel origins through the brain. ?3D MIP images rendered on scanning unit and reviewed at time of interpretation. ?? Carotid stenosis measurements are based on NASCET criteria. Automated exposure control was used as a dose optimization technique for this examination. CONTRAST TYPE/DOSE: ?? 100 mL Isovue 370 ??injected via ?? left AC without reported incident. COMPARISON: ?? Relevant portions of cervical spine radiograph 11/14/2018; CT head without contrast 02/17/2014 and 06/20/2011. FINDINGS: BRAIN: BRAIN: No acute intra-axial hemorrhage. ??No edema, mass effect, midline shift, or herniation. ??No suspicious focal white matter lesions with preservation of the lawton-white junction. ?? No evidence of acute territorial ischemia/infarct. ?? EXTRA-AXIAL SPACES: ?? No extra-axial fluid collection. ??No extra-axial mass. ORBITS: ?? No acute abnormality. ??Ocular lenses and globes normal in conformation and position. CALVARIUM: ?? No acute calvarial fracture. PARANASAL SINUSES AND MASTOIDS: ?? No fluid or mucosal thickening. CAROTID AND VERTEBRAL ARTERIES: RIGHT CAROTIDS: ?? No occlusion, stenosis, or evidence of dissection of the right carotid arterial system. LEFT CAROTIDS: ?? Occlusion, stenosis, or evidence of dissection of the left carotid arterial system. RIGHT VERTEBRAL: ??Patent without evidence of stenosis or dissection. LEFT VERTEBRAL: ?? Patent without evidence of stenosis or dissection. AORTIC ARCH: ?? Three-vessel aortic arch. ??Patent subclavian arteries. INCLUDED LUNGS: ?? No acute abnormality. NECK SOFT TISSUE: ?? No acute abnormality. OTHER: ?? No other significant finding. INTRACRANIAL VESSELS: [place]: ?? The anterior, middle, posterior cerebral arteries are all patent. ??No focal stenosis or aneurysm. POSTERIOR CIRCULATION: ?? The distal vertebral arteries are patent as is the basilar artery. No aneurysm. BRAIN: ?? No gross evidence of enhancing intracranial lesions. THIS IS AN ELECTRONICALLY VERIFIED FINAL REPORT 03/16/2024 2:06 PM - Electronically signed by ??Doe Garcia M.D. ANUP: ANUP D: ??03/16/2024 2:06 PM T: ??03/16/2024 2:06 PM Report ID: [id number] Reading Location: ??[id number] Procedure Note Doe Garcia MD - 03/16/2024 EXAM DESCRIPTION: CT ANGIO HEAD AND NECK WWO CONTRAST W PP REASON FOR STUDY: Acute headache and dizziness beginning this morning at 07:00. No provided history of focal neurologic deficits. No provided history of trauma or inciting and/or aggravating events. No provided past surgical history. TECHNIQUE: Axial images were first obtained through the brain without contrast. Post IV contrast scanning, thin section axial imaging from the great vessel origins through the brain. 3D MIP images rendered on scanning unit and reviewed at time of interpretation. Carotid stenosis measurements are based on NASCET criteria. Automated exposure control was used as a dose optimization technique for this examination. CONTRAST TYPE/DOSE: 100 mL Isovue 370 injected via left AC without reported incident. COMPARISON: Relevant portions of cervical spine radiograph 11/14/2018; CT head without contrast 02/17/2014 and 06/20/2011. FINDINGS: BRAIN: BRAIN: No acute intra-axial hemorrhage. No edema, mass effect, midline shift, or herniation. No suspicious focal white matter lesions with preservation of the lawton-white junction. No evidence of acute territorial ischemia/infarct. EXTRA-AXIAL SPACES: No extra-axial fluid collection. No extra-axial mass. ORBITS: No acute abnormality. Ocular lenses and globes normal in conformation and position. CALVARIUM: No acute calvarial fracture. PARANASAL SINUSES AND MASTOIDS: No fluid or mucosal thickening. CAROTID AND VERTEBRAL ARTERIES: RIGHT CAROTIDS: No occlusion, stenosis, or evidence of dissection of the right carotid arterial system. LEFT CAROTIDS: Occlusion, stenosis, or evidence of dissection of the left carotid arterial system. RIGHT VERTEBRAL: Patent without evidence of stenosis or dissection. LEFT VERTEBRAL: Patent without evidence of stenosis or dissection. AORTIC ARCH: Three-vessel aortic arch. Patent subclavian arteries. INCLUDED LUNGS: No acute abnormality. NECK SOFT TISSUE: No acute abnormality. OTHER: No other significant finding. INTRACRANIAL VESSELS: [place]: The anterior, middle, posterior cerebral arteries are all patent. No focal stenosis or aneurysm. POSTERIOR CIRCULATION: The distal vertebral arteries are patent as is the basilar artery. No aneurysm. BRAIN: No gross evidence of enhancing intracranial lesions. THIS IS AN ELECTRONICALLY VERIFIED FINAL REPORT 03/16/2024 2:06 PM - Electronically signed by Doe Garcia M.D. ANUP: ANUP Report ID: [id number] Reading Location: [id number] IMPRESSION: 1. No acute intracranial process. 2. No occlusion, focal stenosis, or aneurysm of the intracranial arterial vasculature. 3. No occlusion, stenosis, or dissection of the cervical arterial vasculature. us Alexander Jarvis MD IMG CT ORDERABLES Mary l Result * POCT Creatinine (03/16/2024 12:47 PM CDT) Pathologist [facility] CREATININE - POCT 0.6 0.6 - 1.3 mg/dL 03/16/2024 12:49 PM CDT [facility] Blood 03/16/2024 12:4 7 PM CDT 03/16/2024 12:49 PM CDT None Provider POINT OF CARE TESTING Final Resu lt [facility] [place] [address] * CBC with Auto Differential (03/16/2024 12:40 PM CDT) WBC 6.82 4.00 - 12.00 10(3)/mcL 03/16/2024 12:58 PM CDT [facility] RBC 4.41 3.80 - 5.30 10(6)/mcL 03/16/2024 12:58 PM CDT [facility] HEMOGLOBIN (HGB) 13.1 12.0 - 15.8 g/dL 03/16/2024 12:58 PM CDT [facility] HEMATOCRIT (HCT) 40.2 36.0 - 47.0 % 03/16/2024 12:58 PM CDT [facility] MCV 91.2 82.0 - 96.0 fL 03/16/2024 12:58 PM CDT [facility] MCH 29.7 26.0 - 34.0 pg 03/16/2024 12:58 PM CDT [facility] MCHC 32.6 31.0 - 36.0 g/dL 03/16/2024 12:58 PM CDT [facility] PLATELET COUNT 247 140 - 440 10(3)/mcL 03/16/2024 12:58 PM CDT [facility] RDW 13.7 11.8 - 15.5 % 03/16/2024 12:58 PM CDT [facility] MPV 10.0 9.7 - 12.4 fL 03/16/2024 12:58 PM CDT [facility] NEUTROPHILS 62.3 47.0 - 73.0 % 03/16/2024 12:58 PM CDT [facility] LYMPHOCYTES 26.1 18.0 - 42.0 % 03/16/2024 12:58 PM CDT [facility] MONOCYTES 6.6 4.0 - 12.0 % 03/16/2024 12:58 PM CDT [facility] EOSINOPHILS 4.3 0.0 - 5.0 % 03/16/2024 12:58 PM CDT [facility] BASOPHILS 0.7 0.0 - 1.0 % 03/16/2024 12:58 PM CDT [facility] ABSOLUTE NEUTROPHILS 4.25 1.60 - 7.70 10(3)/mcL 03/16/2024 12:58 PM CDT [facility] ABSOLUTE LYMPHOCYTES 1.78 1.30 - 3.20 10(3)/mcL 03/16/2024 12:58 PM CDT [facility] ABSOLUTE MONOCYTES 0.45 0.20 - 1.00 10(3)/mcL 03/16/2024 12:58 PM CDT [facility] ABSOLUTE EOSINOPHIL 0.29 0.00 - 0.40 10(3)/mcL 03/16/2024 12:58 PM CDT [facility] ABSOLUTE BASOPHILS 0.05 0.00 - 0.10 10(3)/mcL 03/16/2024 12:58 PM CDT [facility] NRBC PER 100 WBC 0 03/16/20 12:58 PM CDT [facility] Blood Venipuncture / Unknown 03/16/2024 12:40 PM CDT 03/16/2024 12:47 PM CDT Alexander Jarvis MD HEMATOLOGY ORDERABLES Final Result Performing Organization Address [facility] de Phone Number [facility] [place] [address] * TROPONIN I, HIGH SENSITIVITY (HSTRP) (03/16/2024 12:40 PM CDT) TROPONIN I, HIGH SENSITIVITY- [place] <3 <=14 ng/L 03/16/2024 1:20 PM CDT [facility] Comment: High-sensitivity troponin I results are reported in ng/L making the result appear to be 1,000 times higher than the contemporary troponin I value which is reported in ng/ml. Results from [place]. Blood Venipuncture / Unknown 03/16/2024 12:40 PM CDT 03/16/2024 12:47 PM CDT us Alexander Jarvis MD CHEMISTRY ORDERABLES F inal Result Performing Organization Address City/[facility]/ZIP Co de Phone Number [facility] [place] [address] * Magnesium (03/16/2024 12:40 PM CDT) MAGNESIUM 2.0 1.6 - 2.6 mg/dL 03/16/2024 1:15 PM CDT [facility] Blood Venipuncture / Unknown 03/16/2024 12:40 PM CDT 03/16/2024 12:47 PM CDT us Alexander Jarvis MD CHEMISTRY ORDERABLES F inal Result [facility] [place] [address] * (ABNORMAL) CMP (03/16/2024 12:40 PM CDT) SODIUM 142 136 - 145 mmol/L 03/16/2024 1:15 PM CDT [facility] POTASSIUM 3.9 3.5 - 5.1 mmol/L 03/16/2024 1:15 PM CDT [facility] CHLORIDE 109(H) 98 - 107 mmol/L 03/16/2024 1:15 PM CDT [facility] CO2, VENOUS 24 22 - 30 mmol/L 03/16/2024 1:15 PM CDT [facility] ANION GAP 12.9 <18.0 mmol/L 03/16/2024 1:15 PM CDT [facility] GLUCOSE 101(H) 70 - 99 mg/dL 03/16/2024 1:15 PM CDT [facility] BUN 13 10 - 20 mg/dL 03/16/2024 1:15 PM CDT [facility] CREATININE, BLOOD 0.71 0.60 - 1.00 mg/dL 03/16/2024 1:15 PM CDT [facility] BUN/CREATININE RATIO 18 12 - 20 ratio 03/16/2024 1:15 PM CDT [facility] TOTAL PROTEIN 7.0 6.3 - 8.2 g/dL 03/16/2024 1:15 PM CDT [facility] ALBUMIN 3.9 3.5 - 5.0 g/dL 03/16/2024 1:15 PM CDT [facility] A/G RATIO 1.3 1.0 - 2.2 03/16/2024 1:15 PM CDT [facility] CALCIUM 9.1 8.7 - 10.5 mg/dL 03/16/2024 1:15 PM CDT [facility] T BILI 0.6 0.2 - 1.2 mg/dL 03/16/2024 1:15 PM CDT [facility] SGOT (AST) 18 5 - 34 U/L 03/16/2024 1:15 PM CDT [facility] SGPT (ALT) 27 0 - 55 U/L 03/16/2024 1:15 PM CDT [facility] ALKALINE PHOSPHATASE 80 40 - 150 U/L 03/16/2024 1:15 PM CDT [facility] GFR, ESTIMATED >60 >=60 03/16/2024 1:15 PM CDT [facility] Comment: Creatinine Clearance is the preferred criteria for selecting drug dose adjustments in renally impaired patients. ??The GFR is provided as additional pertinent clinical information. GFR is reported in mL/min/1.73 sq m. Calculation based on the Chronic Kidney Disease Epidemiology Collaboration (CKD- EPI) equation refit without adjustment for race. GFR, EST. >60 >=60 024 1:15 PM CDT [facility] GFR, EST. NONAFRICAN >60 >=60 03/16/2024 1:15 PM CDT [facility] Blood Venipuncture / Unknown 03/16/2024 12:40 PM CDT 03/16/2024 12:47 PM CDT us Alexander Jarvis MD CHEMISTRY ORDERABLES F inal Result [facility] [place] [address] * EKG 12 LEAD (03/16/2024 11:40 AM CDT) Ventricular Rate 81 BPM EXTERNAL EKG Atrial Rate 81 BPM EXTERNAL EKG P-R Interval 150 ms EXTERNAL EKG QRS Duration 80 ms EXTERNAL EKG Q-T Duration 388 ms EXTERNAL EKG QTC CALCULATION 450 ms EXTERNAL EKG P Ulysses 39 degrees EXTERNAL EKG R Ulysses -14 degrees EXTERNAL EKG T Ulysses 24 degrees EXTERNAL EKG 03/16/2024 11:4 0 AM CDT Impressions EXTERNAL EKG - 03/17/2024 12:38 PM CDT Normal sinus rhythm Possible Anterior infarct , age undetermined Abnormal ECG When compared with ECG of 23-FEB-2019 10:00, No significant change was found Confirmed by Rudy Hodges ([id number]) on 03/17/2024 12:38:45 PM Narrative Procedure Note Rudy Hodges MD - 03/17/2024 IMPRESSION: Normal sinus rhythm Possible Anterior infarct , age undetermined Abnormal ECG When compared with ECG of 23-FEB-2019 10:00, No significant change was found Confirmed by Rudy Hodges ([id number]) on 03/17/2024 12:38:45 PM us Alexander Jarvis MD IMG ECG ORDERABLES Fin al Result Performing Organization Address City/[facility] Co de Phone Number EXTERNAL EKG * EKG SCAN (03/16/2024 12:00 AM CDT) 03/16/2024 us Provider Scan IMG ECG ORDERABLES Final Result Performing Organization Address City/State/[facility] Co de Phone Number RESULTING AGENCY documented in this encounter Visit Diagnoses Diagnosis Peripheral vertigo, unspecified laterality- Primary documented in this encounter Administered Medications Inactive Administered Medications - up to 3 most recent administrations Medication Order ESTER Action Action Date Dose Rate Site jekqnvdgpq-mzdhpimrwvmee-yuoy eine (FIORICET, ESGIC) 50-325-40 MG per tablet 1 Tablet 1 Tablet, Oral, ONCE, 1 dose, On Opal 03/16/24 at 1530, Maximum dose of acetaminophen is 4000 mg from all sources in 24 hours. Given 03/16/2024 3:10 PM CDT 1 Tablet diazePAM (VALIUM) injection 5 mg 5 mg, Intravenous, ONCE, 1 dose, On Opal 03/16/24 at 1300, For IV administration - give undiluted as an IV push to avoid precipitation. Maximum rate of IV administration is 5 mg/min. Given 03/16/2024 12:47 PM CDT 5 mg iopamidol (ISOVUE-370) 76 % injection 100 mL 100 mL, Intravenous, ONCE, 1 dose, On Opal 03/16/24 at 1330 Given 03/16/2024 1:22 PM CDT 100 mL ketorolac (TORADOL) injection 30 mg 30 mg, Intravenous, ONCE, 1 dose, On Opal 03/16/24 at 1230 Given 03/16/2024 12:32 PM CDT 30 mg meclizine (ANTIVERT) tablet 25 mg 25 mg, Oral, ONCE, 1 dose, On Opal 03/16/24 at 1300 Given 03/16/2024 12:32 PM CDT 25 mg ondansetron (ZOFRAN) injection 4 mg 4 mg, Intravenous, ONCE, 1 dose, On Opal 03/16/24 at 1230 Given 03/16/2024 12:32 PM CDT 4 mg sodium chloride 0.9 % 1,000 mL IV bolus 1,000 mL, Intravenous, ONCE, 1 dose, On Opal 03/16/24 at 1230, Administer over 0.5 Hours New Bag 03/16/2024 12:30 PM CDT 1,000 mL 2000 mL/hr documented in this encounter Active and Recently Administered Medications Times are shown in CDT. Scheduled Medication Order 03/14/2024 03/15/2024 03/16/2024 kixaexwpbd-jrhxyekigwxdp-mgueqtcm (FIORICET, ESGIC) 50-325-40 MG per tablet 1 Tablet (COMPLETED) 1 Tablet, Oral, ONCE, 1 dose, On Opal 03/16/24 at 1530, Maximum dose of acetaminophen is 4000 mg from all sources in 24 hours. 1510 (Given - Provid er: Safia Jones, RN) diazePAM (VALIUM) injection 5 mg (COMPLETED) 5 mg, Intravenous, ONCE, 1 dose, On Opal 03/16/24 at 1300, For IV administration - give undiluted as an IV push to avoid precipitation. Maximum rate of IV administration is 5 mg/min. 1247 (Given - Provid er: Carmencita Lu RN) iopamidol (ISOVUE-370) 76 % injection 100 mL (COMPLETED) 100 mL, Intravenous, ONCE, 1 dose, On Opal 03/16/24 at 1330 1322 (Given - Provid er: Sonia Blevins, RT(R) (CT)) ketorolac (TORADOL) injection 30 mg (COMPLETED) 30 mg, Intravenous, ONCE, 1 dose, On Opal 03/16/24 at 1230 1232 (Given - Provid er: Carmencita Lu RN) meclizine (ANTIVERT) tablet 25 mg (COMPLETED) 25 mg, Oral, ONCE, 1 dose, On Opal 03/16/24 at 1300 1232 (Given - Provid er: Carmencita Lu RN) ondansetron (ZOFRAN) injection 4 mg (COMPLETED) 4 mg, Intravenous, ONCE, 1 dose, On Opal 03/16/24 at 1230 1232 (Given - Provid er: Carmencita Lu RN) sodium chloride 0.9 % 1,000 mL IV bolus (COMPLETED) 1,000 mL, Intravenous, ONCE, 1 dose, On Opal 03/16/24 at 1230, Administer over 0.5 Hours 1230 (New Bag - Prov ider: Carmencita Lu RN)1400 (Stopped - Provider: Carmencita Lu RN) documented in this encounter Additional Health Concerns Assessment Noted Time PHQ-9 Depression Total Score: 0 02/07/20 24 7:57 AM CDT documented as of this encounter Care Teams Custom Feed Mill Operator Helper Relationship Specialty Start Date End Date Wali Pak MD [address] [place] [address] PCP - General Internal Medicine 12/30/15 documented as of this encounter
--- OUTSIDE RECORDS SUMMARY | 2024-10-13 16:06 | XMS_ITS | Encounter Summary ---
Author Organization [employer] Care Team Providers Care Marketing Production Manager Name Role Phone Wali Pak MD Primary Care Provider [phone] Encounter Details Date Type Department Care Team (Latest Contact Info) Description 07/17/2024 Travel Social History Tobacco Use Types Packs/Day [...] often do you attend chur ch or taoist services? More than 4 times per year 02/07/2024 Do you belong to any clubs o r organizations such as taoism groups, unions, fraternal or athletic groups, or [...] - Questions 1-9 0 01/23 [facility] - Occupational Stress Questionnaire Answer Date [...] place to sleep or slept in a usp (including now)? No 02/07/2024 Education Answer Date [...] on file documented as of this encounter Plan of Treatment Upcoming Encounters Date Type Department Care Team (Late st Contact Info) Description 02/05/2025 8:00 AM CDT Office Visit [facility] - Internal Medicine [place] [address] [place] [address] Wali Pak MD [address] [place] [address] documented as of this encounter Visit Diagnoses Not on filedocumented in this encounter Additional Health Concerns Assessment Noted Time PHQ-9 Depression Total Score: 0 02/07/20 24 7:57 AM CDT documented as of this encounter Care Teams Marketing Production Manager Relationship Specialty Start Date End Date Wali Pak MD [address] [place] [address] PCP - General Internal Medicine 12/30/15 documented as of this encounter
--- OUTSIDE RECORDS SUMMARY | 2024-10-13 16:06 | XMS_ITS | Encounter Summary ---
Author Organization [facility] Address [address] [address] Phone Care Team Providers Care Color Checker Roving Or Yarn Name Role Phone Wali Pak MD Primary Care Provider [phone] Encounter Details Date Type Department Care Team (Late st Contact Info) Description 02/08/2024 7:20 AM CDT Lab [facility] - [facility] - [place] [address] [place] [address] Lab, [facility] Type 2 diabetes mellitus without complication, without long-term current use of insulin (HCC); Essential hypertension, benign; Other hyperlipidemia Discharge Disposition: Discharged to home or Selfcare Social History Tobacco Use Types Packs/Day Years Used Date Smoking Tobacco: Former Cigarettes 0.3 3 Passive Smoke Exposure: Past Smokeless Tobacco: Never Comments:social Alcohol Use Standard Drinks/Week Comments Yes 0 (1 standard drink = 0.6 oz pur e alcohol) social [facility] Utilities Answer Date Recorded In the past 12 months has [employer], gas, oil, or water [employer] threatened to shut off services in your [...] How often do you attend chur or moravian services? More than 4 times per year 02/07/2024 Do you belong to any clubs o r organizations such as jew groups, unions, fraternal or athletic groups, or [...] Total Score - Questions 1-9 0 01/23 [facility] Occupat ional Health - [...] place to sleep or slept in a assisted (including now)? No 02/07/2024 Education Answer Date [...] on file documented as of this encounter Progress Notes * Dayana Chapa CMA - 02/08/2024 7:20 AM CDT Mervat presents for lab draw per order of Dr. Wali Pak dated 02/08/2024. Specimen collected from right antecubital without incident. documented in this encounter Plan of Treatment Upcoming Encounters Date Type Department Care Team (Late st Contact Info) Description 02/05/2025 8:00 AM CDT Office Visit [facility] - Internal Medicine - [place] [address] [place] [address] Wali Pak MD [address] [place] [address] documented as of this encounter Procedures Procedure Name Priority Date/Time Associated Diagnosis Comments HEMOGLOBIN A1C W/ ESTIMATED GLUCOSE Routine 02/08/2024 7:10 AM CDT Type 2 diabetes mellitus without complication, without long-term current use of insulin (HCC) LIPID PANEL Routine 02/08/2024 7:10 AM CDT Type 2 diabetes mellitus without complication, without long-term current use of insulin (HCC) Essential hypertension, benign Other hyperlipidemia CMP (COMPREHENSIVE METABOLIC PANEL) Routine 02/08/2024 7:10 AM CDT Type 2 diabetes mellitus without complication, without long-term current use of insulin (HCC) Essential hypertension, benign Other hyperlipidemia documented in this encounter Results * HEMOGLOBIN A1C W/ ESTIMATED GLUCOSE (02/08/2024 7:10 AM CDT) HGB-A1C 5.7 4.0 - 6.0 % 02/08/2024 3:17 PM CDT [facility] Est Average Glucose 116.9 mg/dL 02/08/2024 3:17 PM CDT [facility] Blood Venipuncture / Unknown 02/08/2024 7:10 AM CDT 02/08/2024 7:10 AM CDT Narrative [facility] - 02/08/2024 3:17 PM CDT HEMOGLOBIN A1C: DIABETIC PATIENTS: WELL-CONTROLLED: ?? 6.2 - 7.0 INTERMEDIATE WELL-CONTROLLED: ??7.0 - 9.0 POORLY-CONTROLLED: ??>9.0 us Wali Pak MD CHEMISTRY ORDERABLES Final Result [facility] [address] [place] [address] * (ABNORMAL) LIPID PANEL (02/08/2024 7:10 AM CDT) CHOLESTEROL 200(H) <200 mg/dL 02/08/2024 3:31 PM CDT [facility] TRIGLYCERIDES 81 <150 mg/dL 02/08/2024 3:31 PM CDT [facility] HDL CHOLESTEROL 43 >40 mg/dL 3:31 PM CDT [facility] LDL 141(H) <130 mg/dL 02/08/2024 3:31 PM CDT [facility] VLDL 16 10 - 50 mg/dL 02/08/2024 3:31 PM CDT [facility] CHOL/HDL RATIO 4.7(H) 0.0 - 4.4 02/08/2024 3:31 PM CDT [facility] NON-HDL CHOLESTEROL 157(H) <130 mg/dL 02/08/2024 3:31 PM CDT [facility] Blood Venipuncture / Unknown 02/08/2024 7:10 AM CDT 02/08/2024 7:10 AM CDT Wali Pak MD CHEMISTRY ORDERABLES Final Result [facility] [address] [place] [address] * (ABNORMAL) CMP (COMPREHENSIVE METABOLIC PANEL) (02/08/2024 7:10 AM CDT) SODIUM 141 136 - 145 mmol/L 02/08/2024 3:31 PM CDT [facility] POTASSIUM 4.1 3.5 - 5.1 mmol/L 02/08/2024 3:31 PM CDT [facility] CHLORIDE 107 98 - 107 mmol/L 02/08/2024 3:31 PM CDT [facility] CO2, VENOUS 26 22 - 30 mmol/L 02/08/2024 3:31 PM CDT [facility] ANION GAP 12.1 <18.0 mmol/L 02/08/2024 3:31 PM CDT [facility] GLUCOSE 93 70 - 99 mg/dL 02/08/2024 3:31 PM CDT [facility] BUN 18 10 - 20 mg/dL 02/08/2024 3:31 PM CDT [facility] CREATININE, BLOOD 0.69 0.60 - 1.00 mg/dL 02/08/2024 3:31 PM T [facility] BUN/CREATININE RATIO 26(H) 12 - 20 ratio 02/08/2024 3:31 PM CDT [facility] TOTAL PROTEIN 6.9 6.3 - 8.2 g/dL 02/08/2024 3:31 PM CDT [facility] ALBUMIN 4.0 3.5 - 5.0 g/dL 02/08/2024 3:31 PM T [facility] A/G RATIO 1.4 1.0 - 2.2 02/08/2024 3:31 PM T [facility] CALCIUM 9.2 8.7 - 10.5 mg/dL 02/08/2024 3:31 PM CDT [facility] T BILI 0.8 0.2 - 1.2 mg/dL 02/08/2024 3:31 PM T [facility] SGOT (AST) 16 5 - 34 U/L 02/08/2024 3:31 PM [facility] SGPT (ALT) 22 0 - 55 U/L 02/08/2024 3:31 PM T [facility] ALKALINE PHOSPHATASE 75 40 - 150 U/L 02/08/2024 3:31 PM T [facility] IS THE PATIENT REQUIRED TO BE FASTING? No 02/08/2024 3:31 PM CDT [facility] GFR, ESTIMATED >60 >=60 02/08/2024 3:31 PM T [facility] Comment: Creatinine Clearance is the preferred criteria for selecting drug dose adjustments in renally impaired patients. ??The GFR is provided as additional pertinent clinical information. GFR is reported in mL/min/1.73 sq m. Calculation based on the Chronic Kidney Disease Epidemiology Collaboration (CKD- EPI) equation refit without adjustment for race. GFR, EST. >60 >=60 024 3:31 PM CDT [facility] GFR, EST. NONAFRICAN >60 >=60 02/08/2024 3:31 PM CDT [facility] Blood Venipuncture / Unknown 02/08/2024 7:10 AM CDT 02/08/2024 7:10 AM CDT Wali Pak MD CHEMISTRY ORDERABLES Final Result [facility] [place] [address] documented in this encounter Visit Diagnoses Diagnosis Type 2 diabetes mellitus without complication, without long-term current use of insulin (HCC) Essential hypertension, benign Other hyperlipidemia documented in this encounter Additional Health Concerns Assessment Noted Time PHQ-9 Depression Total Score: 0 02/07/20 24 7:57 AM CDT documented as of this encounter Care Teams Color Checker Roving Or Yarn Relationship Specialty Start Date End Date Wali Pak MD [address] [place] [address] PCP - General Internal Medicine 12/30/15 documented as of this encounter
--- OUTSIDE RECORDS SUMMARY | 2024-10-13 16:06 | XMS_ITS | Data Portability ---
Author Organization SAVANA Tolu HAGAN Address [address] [place] [address] Care Team Providers Care Superintendent Building Name Role Phone SERNASERAFINJOAN Primary Care Provider Assessment Encounter Date Assessment Date Assessment LastModified by Organization Details LastModified Time 01/03/2015 01/03/2015 Preop consultation for hysterectomy Not available 01/04/2015 11:28:48 01/24/2015 01/24/2015 1 week postop with no complaints, pathology report reviewed and postop precautions reviewed. Not available 01/24/2015 13:46:06 Plan of Treatment Reminders Order Date Submit Date Provider Last Modified By Organization Details Last Modified Time Details Appointments None record ed. Lab SARS CoV 2 RNA (COVID -19), QL, assistant engineer-PC R, respir atory specim en - woodri sam 1200 2019 020 [facility] [address] [place], [address], 0 08:15:52 SARS CoV 2 RNA (COVID -19), QL, assistant engineer-PC R, respir atory specim en - woodri sam 130 2020 021 [email or web address] [facility] (Lab), [address] [place], [address], 1 12:16:06 Referral None record ed. Procedures None record ed. Surgeries None record ed. Imaging None record ed. Medication Orders None record ed. Patient TargetsNo targets recorded. Patient Instructions Encounter Date Encounter Id Patient Instructions Last Modified By Organization Details Last Modified Time 01/03/2015 [id number] heavy menstrual periods: care instructions [email or web address] Not available 01/04/2015 12:26:45 Surgery Counseling We discussed various methods of treatment for this diagnosis, including both non-surgical and surgical treatment options. The procedure was discussed in detail, including rationale for proceeding with the procedure, specifics of the technical aspects of the procedure, and the expected postoperative course including the possible need for activity modification, therapy, and duration of expected recovery. Risks to surgery include: pain, numbing, scar, infection, loss of motion, nerve or vascular injury, stiffness, blood loss, reoccurrence, re-operation, allergic reaction to medicine, heart attack, stroke or . Risks of allograft and blood transfusions include; infection, allergic reaction, disease transmission including hepatits or AIDS virus. Complications, including blood loss and potential need for transfusion, nerve injury, infection, success rates (expected outcomes) of the procedure, and risk of from anesthesia were discussed. {{Patient* parent }} fully understands that there are no guarantees with surgical intervention. The {{patient* parent }} voiced understanding of the procedure and risks, and the decision for surgery was made today. Not available 01/04/2015 11:28:48 01/24/2015 [id number] bleeding after surgery: care instructions [email or web address] Not available 01/25/2015 15:53:19 12/03/2020 [id number] Reviewed the following recommendations: -Stay home and separate from others as much as possible. -Monitor your symptoms and seek medical attention for trouble breathing, persistent chest pain, confusion, or bluish lips or face. -Wear a mask if you must be around other people. -Wash your hands often for 20 seconds with soap and water and clean high-touch surfaces daily -You may discontinue home isolation if your symptoms are improving and it has been 10 days since symptoms started. [email or web address] Not available 12/03/2020 12:16:00 Reason for Referral None Reported. Results Created Date Observation Date Name Description Value Unit Range Abnormal Flag Note LastModifiedBy Organization Detail LastModifiedTime 08/12/20 20 08/12/2020 SARS CoV 2 RNA (COVI D-19) , QL, assistant engineer-P CR, respi rator y speci men sars - cov - 2 PCR NEGATI VE mL Not Available [facility] (Lab) [address], [place], [address], 08/14/2020 08:15:52 08/12/20 20 08/12/2020 SARS CoV 2 RNA (COVI D-19) , QL, assistant engineer-P CR, respi rator y speci men covidcom1 COMME NTS: This assay is desig elizabeth to detec t the RdRp and N genes of SARS- CoV-2 using nucle ic acid ampli ficat ion. A negat uj resul t does not precl ude the possi bilit y of 2019- nCoV infec tion since the adequ acy of sampl e colle ction and/o r low viral burde n may resul t in the prese nce of viral nucle ic acids level s below the maribel tical sensi tivit y of this test metho d. Not Available [facility] (Lab) [address] [facility], [place], [address], 08/14/2020 08:15:52 08/12/2008/12/2020 SARS CoV 2 RNA (COVI D-19) , QL, assistant engineer-P CR, respi rator y speci men covidcom2 Posit ju resul ts are indic ative of the prese nce of SARS- CoV-2 RNA and do not rule out bacte rial infec tion or co-in fecti on with other virus es. Not Available [facility] (Lab) [address], [place], [address], 08/14/2020 08:15:52 08/12/2008/12/2020 SARS CoV 2 RNA (COVI D-19) , QL, assistant engineer-P CR, respi rator y speci men covidcom3 Test resul ts shoul d be used along with other clini abi obser vatio ns, patie nt histo ry, epide miolo gical infor matio n and labor atory data in rachel barlow the diagn osis. Not Available [facility] (Lab) [address], [place], [address], 08/14/2020 08:15:52 08/12/20 20 08/12/2020 SARS CoV 2 RNA (COVI D-19) , QL, assistant engineer-P CR, respi rator y speci men covidcom4 This test has recei michael [facility] Emerg ency Use Autho rizat ion and has been verif ied by [facility] . This test is only autho rized for the durat ion of the decla ratio n and the circu mstan cole that exist to justi fy the autho rizat ion of the emerg ency use of in vitro diagn ostic tests for the detec tion of SARS- CoV-2 virus and/o r diagn osis of COVID -19 infec tion under secti on 564 (b) (1) of the Act. 11 U.S.C . 360bb b-3 (b) (1), unles s the autho rizat ion is termi nated or revok ed soone r. Not Available [facility] (Lab) [address] [place], [address], 08/14/2020 08:15:52 08/12/20 20 08/12/2020 SARS CoV 2 RNA (COVI D-19) , QL, assistant engineer-P CR, respi rator y speci men covidcom5 [facility] [employer] atory is certi fied under CLIA- 88 as quali fied to perfo rm high compl exity testi ng. This testi ng was perfo rmed in the [facility] [employer] [place] [address] (CLIA Licen se #[id number] 5, CAP #[id number], AU-ID #[id number]). Not Available [facility] (Lab) [address] [place], [address], 08/14/2020 08:15:52 08/12/20 20 08/12/2020 SARS CoV 2 RNA (COVI D-19) , QL, assistant engineer-P CR, respi rator y speci men covidcom6 Facts heet for healt hcare provi ders: https ://ww w.[facility] .gov/ media /1365 56/do wnloa d Facts heet for patie nts: https ://[employer]VODECLIC .gov/ media /1363 57/do wnloa d Not Available [facility] ([facility]) [address] [place], [address], 08/14/2020 08:15:52 Result Notes None recorded. Problems Name Problem SNOMED Code Status Onset Date Resolution Date Notes Provider Name and Address Organization Details Recorded Time Menorrhagia 459173076 Active Shaun Navarrete [place], [place] - [facility] 5 11:29:12 Mammography abnormal 597655405 Active Justin Kline null, [place] - [facility] 4 17:44:33 Postoperative hemorrhage 637066185 Active Shaun reynolds, [place] - [facility] 5 13:46:06 Problem Notes None recorded. Procedures Surgical History Date Name Laterality Status Provider Name and Address Organization Details Recorded Time 01/18/20 15 Hysterectomy completed Tereza Celis [place] - [facility] 01/24/2015 11:04:39 10/04/20 14 Most Recent Mammogram completed Shaun Navarrete [facility] 11/28/2014 15:08:44 08/13/20 14 Date of Last Pap Smear completed Mihaela Tong [place] - [facility] 09/14/2014 13:01:15 Caesarean Section completed Shaun Navarrete [facility] 11/28/2014 15:06:36 Appendectomy completed Shaun Navarrete [facility] 11/28/2014 15:06:36 Arthroscopic Surgery completed Mihaela Tong [place] - [facility] 09/14/2014 13:01:15 Other completed Shaun Navarrete [place] - [facility] 11/28/2014 15:06:36 Dilation and Curettage completed Shaun Navarrete [place] - [facility] 11/28/2014 15:06:36 Other completed Shaun Navarrete [place] - [facility] 11/28/2014 15:06:36 Imaging Results None recorded. Procedure Notes None recorded. Medical Equipment None Reported. Allergies Allergen ID Allergen Name Allergen Category Reaction Reaction Severity Criticality Documentation Date Start Date Code Code System Note Provider Name and Address Organization Details Recorded Time 40064 latex environme nt,medica tion rash moderate Not available 01/03/2015 93865 [id number] RxNorm Tereza Celis MA [facility], [facility] 5 09:46:30 Medications Name Sig Start Date Stop Date Status Note LastModified by Organization Details LastModified Time azithromycin 250 mg tablet active Not Available Not Availabl e Not Available ibuprofen 800 mg tablet active Not Available Not Available No t Available metoprolol succinate ER 50 mg tablet,extended release 24 hr TAKE 1 TABLET BY MOUTH EVERY MORNING AND 1/2 TABLET IN THE IN THE EVENING (DOSE INCREASE ) active Not Available Not Available No t Available liothyronine 25 mcg tablet active Not Available Not Available N ot Available Doc-Q-Lace 100 mg capsule active Not Available Not Available N ot Available butalbital-acet aminophen-caffe ine 50 mg-325 mg-40 mg tablet TAKE 1 TAB BY MOUTH EVERY 6 HOURS NEEDED FOR HEADACHE S. active Not Available Not Available No t Available oxycodone-aceta minophen 5 mg-325 mg tablet active Not Available Not Available Not Available bupropion HCl 100 mg tablet TAKE 1 TABLET BY MOUTH TWICE A DAY active Not Available Not Available No t Available lorazepam 0.5 mg tablet TAKE ONE TABLET BY MOUTH ONCE DAILY NEEDED FOR ANXIETY active Not Available Not Available No t Available orphenadrine citrate ER 100 mg tablet,extended release TAKE 1 TAB BY MOUTH 2 TIMES DAILY NEEDED FOR MUSCLE SPASMS. active Not Available Not Available No t Available Cheratussin AC 10 mg-100 mg/5 mL oral liquid active Not Available Not Availab le Not Available metformin ER 500 mg tablet,extended release 24 hr active Not Available Not Availabl e Not Available levothyroxine 25 mcg capsule Take 1 capsule every day by oral route. active Not Available Not Available No t Available Eliquis 5 mg tablet TAKE 1 TABLET BY MOUTH EVERY 12 HOURS active Not Available Not Available No t Available Vitals Date Recorded Body height Body mass index (BMI) Body weight Systolic blood pressure Diastolic blood pressure Provider Name and Address Organization Details Last Updated DateTime 02/28/2015 167.64 cm 32.7 kg/m2 21676.09 5688 g 130 mm[Hg] 86 mm[Hg] Tereza Celis [place] - [facility] 5 10:49:48 Date Recorded Body height Body mass index (BMI) Body weight Systolic blood pressure Diastolic blood pressure Provider Name and Address Organization Details Last Updated DateTime 01/03/2015 167.64 cm 31.8 kg/m2 42882.97 8416 g 130 mm[Hg] 78 mm[Hg] Terezaloy Celis BHAVANI [facility] 5 09:46:29 Date Recorded Body height Body mass index (BMI) Body weight Systolic blood pressure Diastolic blood pressure Provider Name and Address Organization Details Last Updated DateTime 01/24/2015 165.1 cm 34 kg/m2 62710.27 4564 g 124 mm[Hg] 84 mm[Hg] Tereza Celis BHAVANI [facility] 5 11:04:40 Social History Question Answer Notes LastModified by Organizat ion Details LastModified Time Tobacco Smoking Status Former [facility]oker [facility] 15:12:16 What Is Your Level Of Alcohol Consumption? None Information not available 01/03/2015 Is Blood Transfusion Acceptable In An Emergency? Yes Information not available 01/03/2015 What Is Your Level Of Caffeine Consumption? Moderate Information not available 01/03/2015 Live Alone Or With Others? With Others Information not available 01/03/2015 How Many Children Do You Have? 1 Information not available 01/03/2015 What Is Your Relationship Status? Information not available 01/03/2015 How Many Years Have You Smoked Tobacco? 19 Information not available 11/28/2014 Sex: Female Functional Status None recorded. Mental Status None recorded. Family History Nothing Reported. Medical History Condition Response Coronary Artery Disease N Kidney Cyst N Blood Diseases N Hyperthyroidism N Blood Transfusion N MRSA N Blood disorders N Emphysema N Blood Clots N COPD N Depression N Pneumonia N Premature N Peripheral Arterial Disease N Edema N TIA N Headaches/Migraines N Anxiety Disorder N Obesity N Infertility N Polyps N Acid Reflux (GERD) N Hematuria N Stroke N Neck Injury N Polio N Hospital Admission other than N Neurologic Disorder N Other Sleep Disorders N Rheumatoid Arthritis N Fibromyalgia N Abdominal Aortic Aneurysm Repair N Kidney Disease N Heart Conditions N Heart Disease/Heart Problems N Hospitalizations N Brain Tumors N Acne N Skin Problems N Eating Disorder N Meningitis N Constipation N Tuberculosis N Cerebral Palsy N Myocardial Infarction N Asthma N Substance Abuse N Peripheral Vascular Disease N Vertigo N Sleep Disorder N Cirrhosis N Pulmonary Embolism N Chicken Pox N Hematologic Disease N Flomax Use Past or Present N Anxiety/Depression N Thyroid Disease N Colon Cancer N Lung Disease N Glaucoma N Developmental or Behavioral Disorders N Bipolar N Pacemaker N Diverticulitis/Diverticulosis N Orthopedic Problems N Anesthesia Complications N Orthotics N Head Injury/Concussion N Congenital Anomalies N Jimenez Bite N Chronic Kidney Disease N Endometriosis N Liver Disease N Schizophrenia N Dialysis N Speech Delay N Chronic Obstructive Pulmonary Disease N Parkinson's Disease N Thyroid Problems Y GI Problems N Developmental Delay N Anemia N Multiple Sclerosis N Immune System Disorder N Colon Polyps N Heart Attack ([place]) N Diabetes N Cardiomyopathy N Blood Transfusions N Heart Problems/Murmur N Eye Trauma N Congestive Heart Failure (CHF) N Valvular Heart Disease N Hyperlipidemia N Double Vision N Abuse/Domestic Violence N Hepatitis B N Lupus N Epilepsy/Seizures N Reflux/GERD N Aneurysm N Heart Disease N Bronchitis N Pre-Eclampsia N Hypertension N Heart Failure N Other N Gout N High Blood Pressure N Atrial Fibrillation N Kidney Stones N Head Trauma/Injury N Congenital Heart Disease N Spine Problems N Gastrointestinal Disease N Lung Mass N Sinusitis N Obstructive Sleep Apnea N Muscle, Joint, or Bone Problems N Autoimmune disease N Vision or Eye Problems N Arthritis N Blood Clot N Cancer N Seasonal allergies N Leg or Foot Ulcers N Raynaud's Disease N Aortic Aneurysm N Arrhythmia N Headaches N Heart Problems N Ambloypia N Ear or Hearing Problems N Hyperparathyroidism N Migraines N Artificial Joints N Kidney or Bladder Problems N NSAID Use N Encephalitis N PTSD N Ulcers N Prostate Hypertrophy N Bleeding Disorder N AIDS/HIV N Urinary Tract Infection N Back Problems N Allergies N Atrial Flutter N GERD/Reflux N Hepatitis N Autism Spectrum Disorder (ASD) N Breast Cancer N Hernia N Hypothyroidism Y Breast Problem N Genitourinary Disease N Deep Vein Thrombosis N Varicose Veins N Cystic Fibrosis N Hearing Loss N Developmental Problems N Carotid Disease N Vitamin D Deficiency N ADHD N Bladder or Kidney Problems N High Cholesterol N Meniers N Valvular Abnormalities N Psychiatric/Mental Health Condition N Organ Transplant N Foot Deformity N Allergies/Hayfever N Dyslipidemia N Hyponatremia N Diabetic Eye Disease N Osteoporosis/Osteopenia N Back Pain N Proteinuria N Mental Illness N Neurological Problems N Ovarian Cancer N Bedwetting N Seizures/Epilepsy N Kidney Failure N Ocular trauma N Diverticulitis N Dementia N Sleep Apnea N Mental Problems N Warfarin Management N Osteoporosis N Gynecological History Statement/Question Response Abnormal Pap Y Flow Heavy On BCP's at Conception? N STIs/STDs N Most Recent Mammogram 10/04/2014 Age at Menarche 12 Current Control Method Tubal Ligat ion Age at First Child 21 Frequency of Cycle (Q days) 7 Sexually Active? Y Menses Monthly N Date of Last Pap Smear 08/13/2014 LMP Approximate Obstetrics History GPAL:G 3 P 2 0 0 2 Type Value Full Term 2 Living 2 Total 3 Past Encounters Encounter ID Performer Location Encounter Start Date Encounter Closed Date Diagnosis/Indication Diagnosis SNOMED-CT Code Diagnosis ICD10 Code [id number] Shaun Landon Garcia ([place] [address]) [address] [facility] [place] [address] 10/15/2014 11:05:13 10/15/2014 16:21:52 History of abnormal uterine bleeding [id number] Regine Garcia ([place] [address]) [address] [facility] [place] [address] 11/28/2014 14:12:08 11/29/2014 10:06:28 History of abnormal uterine bleeding [id number] Aleksandr Garcia ([place] [address]) [address] [facility] [place] [address] 01/03/2015 09:33:17 01/04/2015 11:44:54 Menorrhagia 113435137 [id number] BHAVANI Ballesteros ([place] [address]) [address] [facility] [place] [address] 01/24/2015 10:51:54 01/24/2015 14:18:10 Postoperative visit 277006862 Postoperat ju hemorrhage [id number] Regine Garcia ([place] [address]) [address] [facility] [place] [address] 02/28/2015 10:32:55 02/28/2015 15:22:06 Postoperative visit 308450803 [id number] WING Hays [address] [place] [address] 08/12/2020 09:34:45 08/13/2020 08:04:43 Viral screening 417875227 Z11.59 Viral syndrome 863492584 B34.9 [id number] SHARA Hill [address] [place] [address] 12/03/2020 12:05:53 12/04/2020 13:31:19 Viral screening 674398066 Z11.59 Viral syndrome 198892165 B34.9 Health Concerns Section Related Observation LastModified by Organization Detai ls LastModified Time None Recorded Concern Status LastModified by Organization Details LastModified Time None Recorded Advance Directives Directive None Recorded Payers Encounter Date Sequence Insurance Name Policy Number Policy Cervantes Covered Member ID Cervantes Member ID Guarantor Name 01/03/2015 1 [facility] (MEDICAID HMO) [id number] M[place]at [place] [id number] [place]at [place] 01/24/2015 1 [facility] (MEDICAID HMO) [id number] Mervat [place] [id number] Mervat [place] 08/12/2020 1 [facility] (MEDICAID HMO) [id number] Mervat [place] [id number] Mervat [place] 12/03/2020 1 [facility] (MEDICAID HMO) [id number] Mervat [place] [id number] Mervat [place] Notes Date Note Type Note Provider Name and Address Organization Details Recorded Time 01/03/2015 text/html [address] Leong presents to discuss hysterectomy. The patient had origionally discussed this with Dr Leong and was referred for [place] at [facility] but has not gone to a referral appointment. The patient notes that her sister had a hysterectomy and that's why she is interested in one. She notes that she is afraid the fibroids will return even with the [place]. She notes heavy and irregular menses sometimes occurring twice a month, pain with intercourse and dysmenorrhea. Update: patient has opted for hysterectomy after some discussion with her . She presents for preop consultation. SAVANA Helms 01/04/2015 11:29:13 02/28/2015 text/html patient present for 6 week postop followup after hysterectomy. She has no major complaints. She notes that she has been sexually active without difficulty. SAVANA Helms SIPaul 02/28/2015 14:44:56 08/12/2020 text/html Pt with a histor y of SVT is requesting COVID-19 testing; as pt c/o sore throat, myalgia and fatigue x 3 days. Pt reports being in contact with her business analysis analyst whom recently tested positive. WING Hays Attn: Accounting, [facility], [place], [address], [facility] - [facility] 08/12/2020 10:31:14 12/03/2020 text/html COVID ScreeningReported bypatient.Onset/Durati on of fever:no fever Associated Symptoms:no cough; no shortness of breathCOVID-19 Symptoms May 2019Reported bypatient.COVID-19 Signs and Symptomscough resolved; fever resolved; fever same; shortness of breath resolved; chills resolved; repeated shaking with chills resolved; muscle pain resolved; muscle pain same; headache resolved; sore throat resolved; loss of taste or smell resolved; vomiting or diarrhea resolved; vomiting or diarrhea same; fatigue resolved; fatigue same; anorexia resolved Associated Symptoms:no sputum production; no wheezing; no runny nose; no vomiting; no diarrhea; no body aches; no nausea; no change in mental status; no hypotension; no tachycardia 55 yo female ,spoke via phone with C/O, fatigue, fever, diarrhea, body aches, denies being exposed to pos COVID person NEELAM Starr NP Attn: Accounting, [facility], [place], [address], [facility] - [facility] 12/03/2020 12:16:36 OBGyn Episode No OBEpisode recorded.
--- OUTSIDE RECORDS SUMMARY | 2024-10-13 16:06 | XMS_ITS | Encounter Summary ---
Author Organization [facility] Care Team Providers Care Water System Operator Name Role Phone Wali Pak MD Primary Care Provider [phone] Encounter Details Date Type Department Care Team (Latest Contact Info) Description 03/16/2024 Travel Social History Tobacco Use Types Packs/Day [...] often do you attend chur ch or zoroastrian services? More than 4 times per year [...] Total Score - Questions 1-9 0 01/23 [facility] - Occupational Stress Questionnaire Answer Date Recorded [...] place to sleep or slept in a chcf (including now)? No 02/07/2024 Education Answer Date [...] Visit [facility] [place] [address] [place] [address] Wali Pak MD [address] [place] [address] documented as of this encounter Visit Diagnoses Not on filedocumented in this encounter Additional Health Concerns Assessment Noted Time PHQ-9 Depression Total Score: 0 02/07/20 24 7:57 AM CDT documented as of this encounter Care Teams Water System Operator Relationship Specialty Start Date End Date Wali Pak MD [address] [place] [address] PCP - General Internal Medicine 12/30/15 documented as of this encounter
--- OUTSIDE RECORDS SUMMARY | 2024-10-13 16:06 | XMS_ITS | Encounter Summary ---
Author Organization [facility] Address [address] [facility] [place] [address] Phone Care Team Providers Care Pipe Inspector Name Role Phone Wali Pak MD Primary Care Provider [phone] Encounter Details Date Type Department Care Team (Late st Contact Info) Description 07/20/2024 Telephone [facility] - [facility] - [place] [address] [place] [address] Wali Pak MD [address] [facility] [facility] [address] Social History Tobacco Use Types Packs/Day Years Used Date Smoking Tobacco: Former Cigarettes 0.3 3 Passive Smoke Exposure: Past Smokeless Tobacco: Never Comments:social Alcohol Use Standard Drinks/Week Comments Yes 0 (1 standard drink = 0.6 oz pur e alcohol) social [facility] Utilities Answer Date Recorded In the past 12 months has [employer], gas, oil, or water company threatened to [...] often do you attend chur ch or anabaptism services? More than 4 times per year 02/07/2024 Do you belong to any clubs o r organizations such as methodist groups, unions, fraternal or athletic groups, or [...] Total Score - Questions 1-9 0 01/23 [facility] - Occupational Stress Questionnaire Answer Date Recorded [...] slept in a skilled nursing (including now)? No 02/07/2024 Education Answer Date [...] encounter Miscellaneous Notes * Telephone Encounter - Wali Pak MD - 07/20/2024 10:35 AM CDT Loprox rx sent. * Telephone Encounter - Dayana Chapa CMA - 07/20/2024 10:25 AM CDT Req Rx for rash under both of her breast and now folds of her legs. Patient was seen by gely on 07/17/24 for the rash and was given a powder and it has not helped. [facility] [place] documented in this encounter Plan of Treatment Upcoming Encounters Date Type Department Care Team (Late st Contact Info) Description 02/05/2025 8:00 AM CDT Office Visit [facility] - Internal Medicine - [place] [address] [place] [address] Wali Pak MD [address] [place] [address] documented as of this encounter Visit Diagnoses Not on filedocumented in this encounter Additional Health Concerns Assessment Noted Time PHQ-9 Depression Total Score: 0 02/07/20 24 7:57 AM CDT documented as of this encounter Care Teams Pipe Inspector Relationship Specialty Start Date End Date Wali Pak MD [address] [place] [address] PCP - General Internal Medicine 12/30/15 documented as of this encounter
--- OUTSIDE RECORDS SUMMARY | 2024-10-13 16:06 | XMS_ITS | Encounter Summary ---
Author Organization [facility] Address [address] [facility] [place] [address] Phone Care Team Providers Care Acetylene Burner Name Role Phone Wali Pak MD Primary Care Provider Reason for Visit * Reason Comments Medication Refill Encounter Details Date Type Department Care Team (Late st Contact Info) Description 02/21/2024 Refill [facility] - [place] [address] [place] [address] Wali Pak MD [address] [place] [address] Medication Refill Social History Tobacco Use Types Packs/Day Years Used Date Smoking Tobacco: Former Cigarettes 0.3 3 Passive Smoke Exposure: Past Smokeless Tobacco: Never Comments:social Alcohol Use Standard Drinks/Week Comments Yes 0 (1 standard drink = 0.6 oz pur e alcohol) social C Utilities Answer Date Recorded In the past 12 months has [employer], gas, oil, or water [employer] threatened to shut off services in your [...] How often do you attend chur or yazidi services? More than 4 times [...] 0 01/23 [facility] - Occupational [...] place to sleep or slept in a senior care (including now)? No 02/07/2024 Education Answer Date [...] Telephone Encounter - Enedelia Damon RN - 02/21/2024 1:08 PM CDT Medication failed the protocol, provider to review and approve the medication order if appropriate. Requested Prescriptions Pending Prescriptions Disp Refills naproxen (NAPROSYN) 500 MG Tablet [Pharmacy Med Name: NAPROXEN 500 MG TABLET] 60 Tablet 0 Sig: TAKE 1 TABLET BY MOUTH TWICE A DAY NEEDED FOR MILD OR MORE SEVERE PAIN NSAIDs Protocol Failed - 02/21/2024 12:46 AM Failed - No matching NSAID med order in past 45 days Matching medication order placed on 01/25/2024 4:25 PM Order [id number]: naproxen (NAPROSYN) 500 MG Tablet (For orders placed between 01/07/2024 1:08 PM and 02/21/2024 1:08 PM) Passed - Normal serum creatinine in past 12 months CREATININE, BLOOD Date Value Ref Range Status 02/08/2024 0.69 0.60 - 1.00 mg/dL Final Passed - Visit with relevant provider in past 12 months or upcoming 90 days Recent Visits Date Type Provider Dept 02/07/24 [facility] [place] 10/11/23 Office Visit Wali Pak MD [facility] [place] 04/13/23 Office Visit Wali Pak MD [facility] [place] Showing recent visits within past 365 days and meeting all other requirements Future Appointments Date Type Provider Dept 05/08/24 Appointment Wali Pak MD [facility] [place] Showing future appointments within next 90 days and meeting all other requirements Passed - AST less than 55 or ALT less than 90 in past 12 months SGOT (AST) Date Value Ref Range Status 02/08/2024 16 5 - 34 U/L Final SGPT (ALT) Date Value Ref Range Status 02/08/2024 22 0 - 55 U/L Final Passed - HGB greater than 10 or HCT greater than 30 in past 12 months HEMOGLOBIN (HGB) Date Value Ref Range Status 07/29/2023 13.2 12.0 - 15.8 g/dL Final HEMATOCRIT (HCT) Date Value Ref Range Status 07/29/2023 42.2 36.0 - 47.0 % Final documented in this encounter Plan of Treatment Upcoming Encounters Date Type Department Care Team (Late st Contact Info) Description 02/05/2025 8:00 AM CDT Office Visit [facility] - Internal Medicine - [place] [address] [place] [address] Wali Pak MD [address] [place] [address] documented as of this encounter Visit Diagnoses Not on filedocumented in this encounter Additional Health Concerns Assessment Noted Time PHQ-9 Depression Total Score: 0 02/07/20 7:57 AM CDT documented as of this encounter Care Teams Acetylene Burner Relationship Specialty Start Date End Date Wali Pak MD [address] [place] [address] PCP - General Internal Medicine 12/30/15 documented as of this encounter
--- OUTSIDE RECORDS SUMMARY | 2024-10-13 16:06 | XMS_ITS | Encounter Summary ---
Author Organization [facility] Care Team Providers Care Boat Wrapper Name Role Phone Wali Pak MD Primary Care Provider [phone] Encounter Details Date Type Department Care Team (Latest Contact Info) Description 08/01/2024 Travel Social History Tobacco Use Types Packs/Day [...] often do you attend chur ch or congregation services? More than 4 times per year 02/07/2024 Do you belong to any clubs o r organizations such as religion groups, unions, fraternal or athletic groups, or [...] Total Score - Questions 1-9 0 01/23 [facility] - Occupational Stress Questionnaire Answer [...] place to sleep or slept in a alf (including now)? No 02/07/2024 Education Answer Date [...] as of this encounter Functional Status * Question Answer Date of Assessment Author Little interest or pleasure in doing things Not at all 08/01/2024 8:55 AM Dayana Cruz CMA Feeling down, depressed, or hopeless Not at all 08/01/2024 8:55 AM CDT Dayana Chapa CMA * Over the past 2 weeks, how often have you been bothered by any of the following problems? Question Answer Date of Assessment Author Patient Health Questionnaire -2 Score 0 08/01/2024 8:55 AM CDT Dayana Chapa CMA documented as of this encounter Plan of Treatment Upcoming Encounters Date Type Department Care Team (Late st Contact Info) Description 02/05/2025 8:00 AM CDT Office Visit [facility] - Internal Medicine [place] [address] [place] [id number] Wali Pak MD [address] [place] [address] documented as of this encounter Visit Diagnoses Not on filedocumented in this encounter Additional Health Concerns Assessment Noted Time PHQ-9 Depression Total Score: 0 02/07/20 24 7:57 AM CDT documented as of this encounter Care Teams Boat Wrapper Relationship Specialty Start Date End Date Wali Pak MD [address] [place] [address] PCP - General Internal Medicine 12/30/15 documented as of this encounter
--- OUTSIDE RECORDS SUMMARY | 2024-10-13 16:06 | XMS_ITS | Encounter Summary ---
Author Organization [facility] Address [address] [facility] [place] [address] Phone Care Team Providers Care Riprap Worker Name Role Phone Wali Pak MD Primary Care Provider Reason for Visit * Reason Comments Anxiety 3 mo f/u Wound Check Right upper thigh Encounter Details Date Type Department Care Team (Late st Contact Info) Description 08/01/2024 9:00 AM CDT Office Visit [facility] - Internal [facility] [address] [place] [address] Wali Pak MD [address] [facility] [place] [address] Generalized anxiety disorder (Primary Dx); Bilateral lower [...] Recorded In the past 12 months has [employer], [employer], or [employer] threatened to shut off services in your [...] often do you attend chur ch or advent services? More than 4 times per year [...] Total Score - Questions 1-9 0 01/23 [facility] ional Health - [...] place to sleep or slept in a penitentiary (including now)? No 02/07/2024 Education Answer Date [...] 08/01/2024 8:54 AM CD T Respiratory Rate - - Oxygen Saturation 99% 08/01/2024 8:54 AM CDT Inhaled Oxygen Concentration - - Weight 108.4 kg (239 lb) 08/01/2024 8:54 AM CDT Height 167.6 cm (5' 6 ) 08/01/2024 8:54 AM CDT Body Mass Index 38.58 08/01/2024 8:54 AM CDT documented in this encounter Functional Status * Question Answer Date of Assessment Author Little interest or pleasure in doing things Not at all 08/01/2024 8:55 AM CDT Dayana Chapa CMA Feeling down, depressed, or hopeless Not at all 08/01/2024 8:55 AM CDT Dayana Chapa CMA * Over the past 2 weeks, how often have you been bothered by any of the following problems? Question Answer Date of Assessment Author Patient Health Questionnaire -2 Score 0 08/01/2024 8:55 AM CDT Dayana Chapa CMA documented as of this encounter Progress Notes * Dayana Chapa CMA - 08/01/2024 9:00 AM CDT Mervat screened for Social Determinants of Health and screened positive for Physical Activity. Patient declined resources. * Dayana Chapa CMA - 08/01/2024 9:00 AM CDT Mervat Terrence Haro, 59 y.o., female is here for Anxiety (3 mo f/u) and Wound Check (Right upper thigh) Medication Refills: Patient reports/denies need for medication refills. Orders Pended: yes Requested Prescriptions Pending Prescriptions Disp Refills naproxen (NAPROSYN) 500 MG Tablet 60 Tablet 0 Sig: TAKE 1 TABLET BY MOUTH TWICE A DAY NEEDED FOR MILD OR MORE SEVERE PAIN Home Medications Medication Sig Start Date End Date Taking? Authorizing Provider aspirin EC 81 MG Tablet Delayed Response Take 81 mg by mouth daily. Yes Provider, MD Denice buPROPion (WELLBUTRIN) 100 MG Tablet TAKE 1 TABLET BY MOUTH TWICE A DAY 04/10/24 Yes Tereza Lujan PAC ciclopirox (LOPROX) 0.77 % Cream Apply 2 times daily. Apply to rash areas bid for 2 weeks 07/20/24 Yes Wali Pak MD furosemide (LASIX) 20 MG Tablet TAKE 1 TABLET BY MOUTH DAILY NEEDED (SWELLING). 04/12/23 Yes Wali Pak MD LORazepam (ATIVAN) 0.5 MG Tablet Take 1 Tablet by mouth daily as needed for Anxiety. 06/28/24 Yes Wali Pak MD Magnesium Gluconate 550 MG Tablet Take 30 mg by mouth. Yes Provider, MD Denice naproxen (NAPROSYN) 500 MG Tablet TAKE 1 TABLET BY MOUTH TWICE A DAY NEEDED FOR MILD OR MORE SEVERE PAIN 02/21/24 Yes Wali Pak MD traZODone (DESYREL) 50 MG Tablet TAKE 1/2 TABLET BY MOUTH NIGHTLY 12/30/23 Yes Wali Pak MD There are no discontinued medications. I have reviewed the home medication list with the patient and have reconciled discrepancies. The list is accurate to the best of my knowledge. Smoking Status: Social History Tobacco Use Smoking status: Former Current packs/day: 0.25 Average packs/day: 0.3 packs/day for 3.0 years (0.8 ttl pk-yrs) Types: Cigarettes Passive exposure: Past Smokeless tobacco: Never Tobacco comments: social Vaping Use Vaping status: Never Used Substance Use Topics Alcohol use: Yes Comment: social Drug use: No Smoking Cessation Counseling Given: no Health Care Maintenance: Health Maintenance Due Topic Date Due Diabetes: Eye Exam Never done Hepatitis C Virus (HCV) Screening Never done TdaP Immunization Never done Zoster Immunization (1 of 2) Never done Diabetes: Foot Exam 04/13/2024 SARS-COV-2 Immunization ( season) 2024 Colorectal Cancer Screening 10/22/2024 Orders Pended: no The following BPA's have been addressed with the patient today: BMI, Smoking, and Depression * Wali Pak MD - 08/01/2024 9:00 AM CDT PROGRESS NOTE [facility] - [place] [address] PHONE: [phone] FAX: [phone] 08/01/2024 NAME: Mervat Haro, : 1965, Assessment ASSESSMENT & PLAN: Return in about 6 months (around 01/30/2025) for diabetes. Diagnoses and all orders for this visit: Generalized anxiety disorder Comments: Stable. Continue current medication. Bilateral lower extremity edema Comments: Stable. Continue current medication. Primary insomnia Comments: Continue trazodone. Ulcer of lower extremity with fat layer exposed, right (HCC) Comments: Continue current wound treatment. Other orders - naproxen (NAPROSYN) 500 MG Tablet; TAKE 1 TABLET BY MOUTH TWICE A DAY NEEDED FOR MILD OR MORE SEVERE PAIN Follow-up in 3 months, sooner if needed. Chief Complaint Patient presents with Anxiety 3 mo f/u Wound Check Right upper thigh Anxiety Wound Check Patient is here for follow-up for anxiety and other medical problems. Anxiety has been stable. Recently had cellulitis with abscess in the right upper thigh area. I and D was done at Urgent Care. Currently on clindamycin. Doing much better. ROS Review of systems was negative, except as documented in HPI PHYSICAL EXAM VITALS: Wt Readings from Last 3 Encounters: 08/01/24 239 lb (108.4 kg) 07/17/24 241 lb (109.3 kg) 03/16/24 235 lb (106.6 kg) Temp Readings from Last 3 Encounters: 08/01/24 97.9 ??F (36.6 ??C) (Temporal) 07/17/24 97.8 ??F (36.6 ??C) (Temporal) 03/16/24 97.5 ??F (36.4 ??C) (Tympanic) BP Readings from Last 3 Encounters: 08/01/24 130/70 07/17/24 166/88 03/16/24 134/62 Pulse Readings from Last 3 Encounters: 08/01/24 64 07/17/24 107 03/16/24 74 Physical Exam Vitals and nursing note reviewed. Constitutional: Appearance: Normal appearance. HENT: Head: Normocephalic. Eyes: Extraocular Movements: Extraocular movements intact. Conjunctiva/sclera: Conjunctivae normal. Pupils: Pupils are equal, round, and reactive to light. Cardiovascular: Rate and Rhythm: Normal rate and regular rhythm. Pulses: Normal pulses. Heart sounds: Normal heart sounds. Pulmonary: Effort: Pulmonary effort is normal. Breath sounds: Normal breath sounds. Musculoskeletal: General: Normal range of motion. Cervical back: Normal range of motion and neck supple. Skin: General: Skin is warm and dry. Comments: Right upper thigh-small open area present. Minimal serosanguineous drainage. Surrounding area is minimally inflamed. Neurological: General: No focal deficit present. Mental Status: She is alert and oriented to person, place, and time. Psychiatric: Mood and Affect: Mood normal. Behavior: Behavior normal. Past medical, surgical, social and family history has been reviewed and updated as necessary. Medications and allergies has been reviewed and updated. Allergies Allergen Reactions Latex Rash When wears latex herself Penicillins Rash As a child / has had penicillin since then with no problems Metformin Diarrhea Current Outpatient Medications: aspirin EC 81 MG Tablet Delayed Response buPROPion (WELLBUTRIN) 100 MG Tablet ciclopirox (LOPROX) 0.77 % Cream furosemide (LASIX) 20 MG Tablet LORazepam (ATIVAN) 0.5 MG Tablet Magnesium Gluconate 550 MG Tablet naproxen (NAPROSYN) 500 MG Tablet traZODone (DESYREL) 50 MG Tablet I educated Mervat regarding diagnoses and plan of care. She verbalizes understanding and will callthe office if situation changes. Voice recognition software was utilized in this dictation. Despite proof reading, typographical errors and/or content errors may have occurred. By: Wali Pak MD 08/01/2024 10:53 AM CDT documented in this encounter Plan of Treatment Upcoming Encounters Date Type Department Care Team (Late st Contact Info) Description 02/05/2025 8:00 AM CDT Office Visit [facility] - Internal Medicine - [place] [address] [place] [phone] Wali Pak MD [address] [place] [address] documented as of this encounter Visit Diagnoses Diagnosis Generalized anxiety disorder- Primary Bilateral lower extremity edema Edema Primary insomnia Persistent disorder of initiating or maintaining sleep Ulcer of lower extremity with fat layer exposed, right (HCC) documented in this encounter Additional Health Concerns Assessment Noted Time PHQ-9 Depression Total Score: 0 02/07/20 24 7:57 AM CDT documented as of this encounter Care Teams Riprap Worker Relationship Specialty Start Date End Date Wali Pak MD [address] [place] [address] PCP - General Internal Medicine 12/30/15 documented as of this encounter
--- OUTSIDE RECORDS SUMMARY | 2024-10-13 16:06 | XMS_ITS | Encounter Summary ---
Author Organization [facility] Address [address] [address] Phone Care Team Providers Care Photo Checker Name Role Phone Wali Pak MD Primary Care Provider Encounter Details Date Type Department Care Team (Late st Contact Info) Description 02/08/2024 Telephone [facility] - Internal Medicine - [place] [address] [place] [address] Wali Pak MD [address] [facility] [place] [address] Social History Tobacco Use Types Packs/Day Years Used Date Smoking Tobacco: Former Cigarettes 0.3 3 Passive Smoke Exposure: Past Smokeless Tobacco: Never Comments:social Alcohol Use Standard Drinks/Week Comments Yes 0 (1 standard drink = 0.6 oz pur e alcohol) social [facility] Utilities Answer Date Recorded In the past 12 months has [employer], gas, oil, or water company threatened to [...] often do you attend chur ch or uatsdin services? More than 4 times per year [...] Total Score - Questions 1-9 0 01/23 [facility] - Occupational Stress Questionnaire Answer Date [...] Telephone Encounter - Enedelia Damon RN - 02/08/2024 4:08 PM CDT ----- Message from Wali Pak MD sent at 02/08/2024 3:59 PM CDT ----- CMP-okay. [id number]. Okay. Lipids-stays elevated. Needs to be on cholesterol-lowering medication. Also needs to be on low cholesterol diet. documented in this encounter Plan of Treatment Upcoming Encounters Date Type Department Care Team (Late st Contact Info) Description 02/05/2025 8:00 AM CDT Office Visit [facility] - Internal Medicine [place] [address] [place] [address] Wali Pak MD [address] [place] [address] documented as of this encounter Visit Diagnoses Not on filedocumented in this encounter Additional Health Concerns Assessment Noted Time PHQ-9 Depression Total Score: 0 02/07/20 24 7:57 AM CDT documented as of this encounter Care Teams Photo Checker Relationship Specialty Start Date End Date Wali Pak MD [address] [place] [address] PCP - General Internal Medicine 12/30/15 documented as of this encounter
--- OUTSIDE RECORDS SUMMARY | 2024-10-13 16:06 | XMS_ITS | Encounter Summary ---
Author Organization [facility] Care Team Providers Care Rn Icu Name Role Phone Wali Pak MD Primary Care Provider Encounter Details Date Type Department Care Team (Latest Contact Info) Description 02/06/2024 Travel Social History Tobacco Use Types Packs/Day [...] often do you attend chur ch or judaism services? More than 4 times per year 02/07/2024 Do you belong to any clubs o r organizations such as holiness groups, unions, fraternal or athletic groups, or [...] Total Score - Questions 1-9 0 01/23 [facility] Occupat ional Health - [...] as of this encounter Functional Status * Q2: How many drinks containing alcohol do you have on a typical day when you are drinking? 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
--- OUTSIDE RECORDS SUMMARY | 2024-10-13 16:06 | XMS_ITS | Encounter Summary ---
Author Organization [facility] Address [address] [facility] [place] [address] Phone Care Team Providers Care Inspector Optical Instrument Name Role Phone Wali Pak MD Primary Care Provider Reason for Visit * Reason Comments Anxiety 3 mo f/u Encounter Details Date Type Department Care Team (Late st Contact Info) Description 02/07/2024 8:00 AM CDT Office Visit [facility] - Internal Medicine [facility] [address] [place] [phone] Wali Pak MD [address] [facility] [place] [address] Type 2 diabetes mellitus without complication, without long-term current use of insulin (HCC) (Primary Dx); Essential hypertension, benign; Other hyperlipidemia; Generalized anxiety disorder; Bilateral lower extremity edema; Hypomagnesemia; Primary insomnia; Counseling regarding advance care planning and goals of care Discharge Disposition: Discharged to home or Selfcare Social History Tobacco Use Types Packs/Day Years Used Date Smoking Tobacco: Former Cigarettes 0.3 3 Passive Smoke Exposure: Past Smokeless Tobacco: Never Tobacco Cessation:Counseling Given: No Comments:social Alcohol Use Standard Drinks/Week Comments Yes 0 (1 standard drink = 0.6 oz pur e alcohol) social [facility] Utilities Answer Date Recorded In the past 12 months has th e electric, gas, oil, or water company [...] How often do you attend chur or taoism services? More than 4 times per year [...] Total Score - Questions 1-9 0 01/23 [facility] Occupat ional Health - Occupational Stress [...] place to sleep or slept in a prison (including now)? No 02/07/2024 Education Answer Date [...] Sign Reading Time Taken Comments Blood Pressure 126/68 02/07/2024 7:56 AM CDT Pulse 82 02/07/2024 7:56 AM CDT Temperature 36.4 ??C (97.6 ??F) 02/07/2024 7:56 AM CD T Respiratory Rate - - Oxygen Saturation 97% 02/07/2024 7:56 AM CDT Inhaled Oxygen Concentration - - Weight 108.4 kg (239 lb) 02/07/2024 7:56 AM CDT Height 166.4 cm (5' 5.5 ) 02/07/2024 7:56 AM CDT Body Mass Index 39.17 02/07/2024 7:56 AM CDT documented in this encounter Functional Status * Audit-C Score [...] Progress Notes * Dayana Chapa CMA - 02/07/2024 8:00 AM CDT Mervat screened for Social Determinants of Health and no needs identified. * Dayana Chapa CMA - 02/07/2024 8:00 AM CDT Mervat Haro, 58 y.o., female is here for Anxiety (3 mo f/u) Medication Refills: Patient reports/denies need for medication refills. Orders Pended: no Requested Prescriptions No prescriptions requested or ordered in this encounter Home Medications Medication Sig Start Date End Date Taking? Authorizing Provider aspirin EC 81 MG Tablet Delayed Response Take 81 mg by mouth daily. Yes Denice Watts MD atorvastatin (LIPITOR) 20 MG Tablet Take 20 mg by mouth daily. Patient not taking: Reported on 10/11/2023 05/27/23 ProviderDenice MD buPROPion (WELLBUTRIN) 100 MG Tablet TAKE 1 TABLET BY MOUTH TWICE A DAY 01/06/24 Yes Tereza Lujan PAC furosemide (LASIX) 20 MG Tablet TAKE 1 TABLET BY MOUTH DAILY NEEDED (SWELLING). 04/12/23 Yes Wali Pak MD LORazepam (ATIVAN) 0.5 MG Tablet Take 1 Tablet by mouth daily as needed for Anxiety. 01/25/24 Yes Wali Pak MD Magnesium Gluconate 550 MG Tablet Take 30 mg by mouth. Yes ProviderDenice MD metoprolol Succinate (TOPROL-XL) 50 MG TABLET SR 24 HR TAKE 1 TABLET BY MOUTH EVERY DAY Patient not taking: Reported on 02/07/2024 12/31/21 Wali Pak MD naproxen (NAPROSYN) 500 MG Tablet TAKE 1 TABLET BY MOUTH TWICE A DAY NEEDED FOR MILD OR MORE SEVERE PAIN 01/25/24 Yes Wali Pak MD traZODone (DESYREL) 50 MG Tablet TAKE 1/2 TABLET BY MOUTH NIGHTLY 12/30/23 Yes Wali Pak MD There are no discontinued medications. I have reviewed the home medication list with the patient and have reconciled discrepancies. The list is accurate to the best of my knowledge. Smoking Status: Social History Tobacco Use Smoking status: Former Packs/day: 0.25 Years: 3.00 Additional pack years: 0.00 Total pack years: 0.75 Types: Cigarettes Passive exposure: Past Smokeless tobacco: Never Tobacco comments: social Vaping Use Vaping Use: Never used Substance Use Topics Alcohol use: Yes Comment: social Drug use: No Smoking Cessation Counseling Given: no Health Care Maintenance: Health Maintenance Due Topic Date Due Diabetes: Eye Exam Never done Hepatitis C Virus (HCV) Screening Never done TdaP Immunization Never done Zoster Immunization (1 of 2) Never done SARS-COV-2 Immunization ( - 2022- season) 2023 Hepatitis B Immunization (1 of 3 - Risk 3-dose series) Never done Respiratory Syncytial Virus (RSV) Immunization (Adult - or age 60+ years) (1 - 1-dose 60+ series) Never done Diabetes: Foot Exam 04/13/2024 Orders Pended: no The following BPA's have been addressed with the patient today: BMI, Smoking, Depression, and Fall Risk * Wali Pak MD - 02/07/2024 8:00 AM CDT PROGRESS NOTE [facility] - INTERNAL MEDICINE [address] [place] [address] PHONE: [phone] FAX: [phone] 02/07/2024 NAME: Mervat Haro, : 1965, Assessment ASSESSMENT & PLAN: Return in about 3 months (around 05/08/2024) for anxiety. Diagnoses and all orders for this visit: Type 2 diabetes mellitus without complication, without long-term current use of insulin (HCC) Comments: Diet-controlled. Continue low carb diet. Orders: - CMP (COMPREHENSIVE METABOLIC PANEL); Future - LIPID PANEL; Future - HEMOGLOBIN A1C W/ ESTIMATED GLUCOSE; Future Essential hypertension, benign Comments: Patient is off metoprolol. Will continue monitor blood pressure. Orders: - CMP (COMPREHENSIVE METABOLIC PANEL); Future - LIPID PANEL; Future Other hyperlipidemia Comments: Continue low-cholesterol diet. Patient has stopped taking atorvastatin. Orders: - CMP (COMPREHENSIVE METABOLIC PANEL); Future - LIPID PANEL; Future Generalized anxiety disorder Comments: Stable. Continue current medication. Bilateral lower extremity edema Comments: Stable. Continue current medication. Hypomagnesemia Comments: Continue magnesium supplement. Primary insomnia Comments: Continue trazodone. Check CMP, lipid profile, HbA1c. It lipids still elevated will restart atorvastatin. Diabetic eye examination recommended. Follow-up in 3 months, sooner if needed. Chief Complaint Patient presents with Anxiety 3 mo f/u Anxiety Patient is here for follow-up for anxiety and other medical problems. Feeling well. FBS stays less than 120. Occasional tingling sensation of right upper extremity. Being followed by hand surgeon. Tolerating medications well. Off metoprolol at present. Also has stopped taking atorvastatin. ROS Review of systems was negative, except as documented in HPI PHYSICAL EXAM VITALS: Wt Readings from Last 3 Encounters: 02/07/24 239 lb (108.4 kg) 10/11/23 241 lb (109.3 kg) 07/29/23 225 lb (102.1 kg) Temp Readings from Last 3 Encounters: 02/07/24 97.6 ??F (36.4 ??C) (Temporal) 10/11/23 98.8 ??F (37.1 ??C) (Temporal) 07/29/23 99.1 ??F (37.3 ??C) (Tympanic) BP Readings from Last 3 Encounters: 02/07/24 126/68 10/11/23 118/72 07/29/23 133/63 Pulse Readings from Last 3 Encounters: 02/07/24 82 10/11/23 82 07/29/23 81 Physical Exam Vitals and nursing note reviewed. Constitutional: Appearance: Normal appearance. She is obese. HENT: Head: Normocephalic. Eyes: Extraocular Movements: Extraocular [...] Skin: General: Skin is warm and dry. Neurological: General: No focal deficit present. Mental [...] Delayed Response buPROPion (WELLBUTRIN) 100 MG Tablet furosemide (LASIX) 20 MG Tablet LORazepam (ATIVAN) [...] may have occurred. By: Wali Pak MD 02/07/2024 8:34 AM CDT documented in this encounter Plan of Treatment Upcoming Encounters Date Type Department Care Team (Late st Contact Info) Description 02/05/2025 8:00 AM CDT [facility] - [place] [address] [place] [phone] Wali Pak MD [address] [place] [address] documented as of this encounter Results * HEMOGLOBIN A1C W/ ESTIMATED GLUCOSE (02/08/2024 7:10 AM CDT) HGB-A1C 5.7 4.0 - 6.0 % 02/08/2024 3:17 PM CDT [facility] Est Average Glucose 116.9 mg/dL 02/08/2024 3:17 PM CDT [facility] Blood Venipuncture / Unknown 02/08/2024 7:10 AM CDT 02/08/2024 7:10 AM CDT Narrative [facility] - 02/08/2024 3:17 PM CDT HEMOGLOBIN A1C: DIABETIC PATIENTS: WELL-CONTROLLED: ?? 6.2 - 7.0 INTERMEDIATE WELL-CONTROLLED: ??7.0 - 9.0 POORLY-CONTROLLED: ??>9.0 us Wali Pak MD CHEMISTRY ORDERABLES Final Result [facility] [place] [address] * (ABNORMAL) LIPID PANEL (02/08/2024 7:10 AM CDT) CHOLESTEROL 200(H) <200 mg/dL 02/08/2024 3:31 PM CDT [facility] TRIGLYCERIDES 81 <150 mg/dL 02/08/2024 3:31 PM CDT [facility] HDL CHOLESTEROL 43 >40 mg/dL 3:31 PM CDT [facility] LDL 141(H) <130 mg/dL 02/08/2024 3:31 PM CDT [facility] VLDL 16 10 - 50 mg/dL 02/08/2024 3:31 PM CDT [facility] CHOL/HDL RATIO 4.7(H) 0.0 - 4.4 02/08/2024 3:31 PM CDT [facility] NON-HDL CHOLESTEROL 157(H) <130 mg/dL 02/08/2024 3:31 PM CDT [facility] Blood Venipuncture / Unknown 02/08/2024 7:10 AM CDT 02/08/2024 7:10 AM CDT us Wali Pak MD CHEMISTRY ORDERABLES Final Result [facility] [place] [address] * (ABNORMAL) CMP (COMPREHENSIVE METABOLIC PANEL) (02/08/2024 7:10 AM CDT) SODIUM 141 136 - 145 mmol/L 02/08/2024 3:31 PM CDT [facility] POTASSIUM 4.1 3.5 - 5.1 mmol/L 02/08/2024 3:31 PM CDT [facility] CHLORIDE 107 98 - 107 mmol/L 02/08/2024 3:31 PM CDT [facility] CO2, VENOUS 26 22 - 30 mmol/L 02/08/2024 3:31 PM CDT [facility] ANION GAP 12.1 <18.0 mmol/L 02/08/2024 3:31 PM CDT [facility] GLUCOSE 93 70 - 99 mg/dL 02/08/2024 3:31 PM CDT [facility] BUN 18 10 - 20 mg/dL 02/08/2024 3:31 PM CDT [facility] CREATININE, BLOOD 0.69 0.60 - 1.00 mg/dL 02/08/2024 3:31 PM CDT [facility] BUN/CREATININE RATIO 26(H) 12 - 20 ratio 02/08/2024 3:31 PM CDT [facility] TOTAL PROTEIN 6.9 6.3 - 8.2 g/dL 02/08/2024 3:31 PM CDT [facility] ALBUMIN 4.0 3.5 - 5.0 g/dL 02/08/2024 3:31 PM CDT [facility] A/G RATIO 1.4 1.0 - 2.2 02/08/2024 3:31 PM CDT [facility] CALCIUM 9.2 8.7 - 10.5 mg/dL 02/08/2024 3:31 PM CDT [facility] T BILI 0.8 0.2 - 1.2 mg/dL 02/08/2024 3:31 PM CDT [facility] SGOT (AST) 16 5 - 34 U/L 02/08/2024 3:31 PM CDT [facility] SGPT (ALT) 22 0 - 55 U/L 02/08/2024 3:31 PM CDT [facility] ALKALINE PHOSPHATASE 75 40 - 150 U/L 02/08/2024 3:31 PM CDT [facility] IS THE PATIENT REQUIRED TO BE FASTING? No 02/08/2024 3:31 PM CDT [facility] GFR, ESTIMATED >60 >=60 02/08/2024 3:31 PM CDT [facility] Comment: Creatinine Clearance is the preferred criteria for selecting drug dose adjustments in renally impaired patients. ??The GFR is provided as additional pertinent clinical information. GFR is reported in mL/min/1.73 sq m. Calculation based on the Chronic Kidney Disease Epidemiology Collaboration (CKD- EPI) equation refit without adjustment for race. GFR, EST. >60 >=60 024 3:31 PM CDT [facility] GFR, EST. NONAFRICAN >60 >=60 02/08/2024 3:31 PM CDT [facility] Blood Venipuncture / Unknown 02/08/2024 7:10 AM CDT 02/08/2024 7:10 AM CDT Wali Pak MD CHEMISTRY ORDERABLES Final Result [facility] [place] [address] documented in this encounter Visit Diagnoses Diagnosis Type 2 diabetes mellitus without complication, without long-term current use of insulin (HCC)- Primary Essential hypertension, benign Other hyperlipidemia Generalized anxiety disorder Bilateral lower extremity edema Edema Hypomagnesemia Disorders of magnesium metabolism Primary insomnia Persistent disorder of initiating or maintaining sleep Counseling regarding advance care planning and goals of care documented in this encounter Additional Health Concerns Assessment Noted Time PHQ-9 Depression Total Score: 0 02/07/20 24 7:57 AM CDT documented as of this encounter Care Teams Inspector Optical Instrument Relationship Specialty Start Date End Date Wali Pak MD [address] [place] [address] PCP - General Internal Medicine 12/30/15 documented as of this encounter
--- OUTSIDE RECORDS SUMMARY | 2024-10-13 16:06 | XMS_ITS | Encounter Summary ---
Author Organization [facility] Address [address] [facility] [place] [address] Phone Care Team Providers Care Career Center Advisor Name Role Phone Wali Pak MD Primary Care Provider Encounter Details Date Type Department Care Team (Late st Contact Info) Description 03/16/2024 Telephone [facility] - Internal Medicine - [place] [address] [place] [address] Wali Pak MD [address] [facility] [place] [address] Social History Tobacco Use Types Packs/Day Years Used Date Smoking Tobacco: Former Cigarettes 0.3 3 Passive Smoke Exposure: Past Smokeless Tobacco: Never Comments:social Alcohol Use Standard Drinks/Week Comments Yes 0 (1 standard drink = 0.6 oz pur e alcohol) social [facility] Utilities Answer Date Recorded In the past 12 months has [employer], gas, oil, or water company threatened to [...] any clubs o r organizations such as bahai groups, unions, fraternal or athletic groups, or [...] Total Score - Questions 1-9 0 01/23 [facility] - Occupational Stress Questionnaire Answer Date [...] place to sleep or slept in a longterm (including now)? No 02/07/2024 Education Answer Date [...] Telephone Encounter - Enedelia Damon RN - 03/16/2024 10:28 AM CDT Pt states she stopped taking BP med metoprolol a month ago, BP was doing ok and Cardio took her offthis. She was calling to ask if she could take again she thinks her BP is high. Asked what her readings were she said she did not know what her BP is but her head is pounding and she is really dizzy. Pt was instructed to be seen in ED or prompt care. Pt verbalizes understanding and agrees Also instructed to contact Environmental Journalist about medication documented in this encounter Plan of Treatment Upcoming Encounters Date Type Department Care Team (Late st Contact Info) Description 02/05/2025 8:00 AM CDT Office Visit [facility] - Internal Medicine - [place] [address] [place] [address] Wali Pak MD [address] [place] [address] documented as of this encounter Visit Diagnoses Not on filedocumented in this encounter Additional Health Concerns Assessment Noted Time PHQ-9 Depression Total Score: 0 02/07/20 24 7:57 AM CDT documented as of this encounter Care Teams Career Center Advisor Relationship Specialty Start Date End Date Wali Pak MD [address] [place] [address] PCP - General Internal Medicine 12/30/15 documented as of this encounter
--- OUTSIDE RECORDS SUMMARY | 2024-10-13 16:07 | XMS_ITS | Encounter Summary ---
Author Organization [facility] Care Team Providers Care Sculpture Instructor Name Role Phone Wali Pak MD Primary Care Provider [phone] Encounter Details Date Type Department Care Team (Latest Contact Info) Description 10/11/2023 Travel Social History Tobacco Use Types Packs/Day Years Used Date Smoking Tobacco: Former Cigarettes 0.3 3 Smokeless Tobacco: Never Comments:social Alcohol Use Standard Drinks/Week Comments Yes 0 (1 standard drink = 0.6 oz pur e alcohol) social [facility] Utilities Answer Date Recorded In the past [...] declined 10/11/2023 How often do you attend moravian or nondenominational serv ices? Patient declined 10/11/2023 Do you belong to any clubs o r organizations such as moravian groups, unions, fraternal or athletic groups, or [...] Total Score - Questions 1-9 0 09/24 [facility] Occupat ional [facility] - Occupational Stress Questionnaire Answer Date [...] slept in a care home (including now)? Patient declined 10/11/2023 Education Answer [...] Audit-C Score Answer Date of Assessment Author -1 10/11/2023 8:16 AM Dayana Toth CMA * Within the last year, have you been humiliated or emotionally abused in other ways by your partner or ex-partner? Answer Date of Assessment Author Patient declined 10/11/2023 8:16 AM Dayana Toth CMA * Within the last year, have you been afraid of your partner or ex-partner? Answer Date of Assessment Author Patient declined 10/11/2023 8:16 AM Dayana Toth CMA * Within the last year, have you been raped or forced to have any kind of sexual activity by your partner or ex-partner? Answer Date of Assessment Author Patient declined 10/11/2023 8:16 AM Dayana Toth CMA * Within the last year, have you been kicked, hit, slapped, or otherwise physically hurt by your partner or ex-partner? Answer Date of Assessment Author Patient declined 10/11/2023 8:16 AM Dayana Toth CMA * Question Answer Date of Assessment Author Q1: How often do you have a drink containing alcohol? Patient declined 10/11/2023 8:16 AM Dayana Toth CMA Q2: How many drinks containing alcohol do you have on a typical day when you are drinking? Patient declined 10/11/2023 8:16 AM Ozzy Toth CMA Q3: How often do you have six or more drinks on one occasion? Patient declined 10/11/2023 8:16 AM Dayana Toth CMA * Question Answer Date of Assessment Author Little interest or pleasure in doing things Not at all 10/11/2023 8:20 AM Dayana Toth CMA Feeling down, depressed, or hopeless Not at all 10/11/2023 8:20 AM Dayana Toth CMA * Over the past 2 weeks, how often have you been bothered by any of the following problems? Question Answer Date of Assessment Author Patient Health Questionnaire -2 Score 0 10/11/2023 8:20 AM Dayana Toth CMA documented as of this encounter Plan of Treatment Upcoming Encounters Date Type Department Care Team (Late st Contact Info) Description 02/05/2025 8:00 AM CDT Office Visit [facility] - Internal Medicine [place] [address] [place] [address] Wali Pak MD [address] [place] [address] documented as of this encounter Visit Diagnoses Not on filedocumented in this encounter Additional Health Concerns Assessment Noted Time PHQ-9 Depression Total Score: 0 10/11/20 8:20 AM PAPER PATTERN INSPECTOR documented as of this encounter Care Teams Sculpture Instructor Relationship Specialty Start Date End Date Wali Pak MD [address] [place] [address] PCP - General Internal Medicine 12/30/15 documented as of this encounter
--- OUTSIDE RECORDS SUMMARY | 2024-10-13 16:07 | XMS_ITS | Encounter Summary ---
Author Organization [facility] Address [address] [facility] [address] [facility] [place] [address] Phone Care Team Providers Care Corner Brace Block Machine Operator Name Role Phone Wali Pak MD Primary Care Provider Reason for Visit * Reason Comments Medication Refill Encounter Details Date Type Department Care Team (Late st Contact Info) Description 01/11/2023 Refill [facility] - [place] [address] [place] [address] Wali Pak MD [address] [facility] [place] [address] Medication Refill Social History Tobacco Use Types Packs/Day Years Used Date Smoking Tobacco: Former Cigarettes 0.3 3 Smokeless Tobacco: Never Comments:social Alcohol Use Standard Drinks/Week Comments Yes 0 (1 standard drink = 0.6 oz pur e alcohol) social PHQ-2 Answer Date Recorded Total Score - Questions 1-9 3 12/24 Sexually Active Control Partners Comments Not Currently [...] Telephone Encounter - Enedelia Damon RN - 01/12/2023 8:16 AM CDT Medication(s) [facility] Ref[facility] Standing Order for Pediatricand Adult Patients. Requested Prescriptions Pending Prescriptions Disp Refills ??? furosemide (LASIX) 20 MG Tablet [Pharmacy Med Name: FUROSEMIDE 20 MG TABLET] 90 Tablet 0 Sig: TAKE 1 TABLET BY MOUTH DAILY NEEDED (SWELLING). Diuretics Protocol Passed - 01/11/2023 4:27 PM Passed - Serum potassium on record in past 12 months POTASSIUM Date Value Ref Range Status 07/08/2022 5.1 3.5 - 5.1 mmol/L Final Passed - Serum sodium on record in past 12 months SODIUM Date Value Ref Range Status 07/08/2022 141 136 - 144 mmol/L Final Passed - Blood pressure on record in past 12 months Clinician-entered: BP Readings from Last 3 Encounters: 11/30/22 147/78 08/10/22 118/70 07/07/22 122/74 Patient-entered: No data recorded Passed - Visit with relevant provider in past 12 months or upcoming 90 days Recent Visits Date Type Provider Dept 08/10/22 Office Visit Wali Pak MD [facility] [place] 07/07/22 Office Visit Wali Pak MD [facility] [place] 01/19/22 Office Visit Wali Pak MD [facility] Showing recent visits within past 365 days and meeting all other requirements Future Appointments No visits were found meeting these conditions. Showing future appointments within next 90 days and meeting all other requirements Passed - GFR on record in past 12 months GFR, EST. NONAFRICAN Date Value Ref Range Status 07/08/2022 >60 >=60 Final documented in this encounter Plan of Treatment Upcoming Encounters Date Type Department Care Team (Late st Contact Info) Description 02/05/2025 8:00 AM CDT Office Visit [facility] - Internal Medicine - [place] [address] [place] [address] Wali Pak MD [address] [place] [address] documented as of this encounter Visit Diagnoses Not on filedocumented in this encounter Additional Health Concerns Assessment Noted Time PHQ-9 Depression Total Score: 3 01/20/20 22 9:00 AM CDT documented as of this encounter Care Teams Corner Brace Block Machine Operator Relationship Specialty Start Date End Date Wali Pak MD [address] [place] [address] PCP - General Internal Medicine 12/30/15 documented as of this encounter
--- OUTSIDE RECORDS SUMMARY | 2024-10-13 16:07 | XMS_ITS | Encounter Summary ---
Author Organization [facility] Address [address] [facility] [place] [address] Phone Care Team Providers Care Irish Moss Operator Name Role Phone Wali Pak MD Primary Care Provider Reason for Visit * Reason Onset Date Comments Results 05/27/2023 Encounter Details Date Type Department Care Team (Late st Contact Info) Description 05/27/2023 Telephone [facility] [address] [place] [address] Wali Pak MD [address] [place] [address] Results Social History Tobacco Use Types Packs/Day Years Used Date Smoking Tobacco: Former Cigarettes 0.3 3 Smokeless Tobacco: Never Comments:social Alcohol Use Standard Drinks/Week Comments Yes 0 (1 standard drink = 0.6 oz pur e alcohol) social PHQ-2 Answer Date Recorded Total Score - Questions 1-9 10 03/26 Education Answer Date Recorded What is the [...] file Not on file Not on file COVID-19 Exposure Response Date Recorded In the last 10 days, have yo u been in contact with someone who was confirmed or suspected to have Coronavirus/COVID-19? No / Unsure 05/26/2023 7:30 AM CDT documented as of this encounter Miscellaneous Notes * Telephone Encounter - Enedelia Damon RN - 05/27/2023 11:57 AM CDT ----- Message from Wali Pak MD sent at 05/27/2023 11:55 AM CDT ----- Mammogram negative for malignancy. Repeat in 1 year documented in this encounter Plan of Treatment Upcoming Encounters Date Type Department Care Team (Late st Contact Info) Description 02/05/2025 8:00 AM CDT Office Visit [facility] - Internal Medicine [place] [address] [place] [address] Wali Pak MD [address] [place] [address] documented as of this encounter Visit Diagnoses Not on filedocumented in this encounter Additional Health Concerns Assessment Noted Time PHQ-9 Depression Total Score: 10 023 8:00 AM CDT documented as of this encounter Care Teams Irish Moss Operator Relationship Specialty Start Date End Date Wali Pak MD [address] [place] [address] PCP - General Internal Medicine 12/30/15 documented as of this encounter
--- OUTSIDE RECORDS SUMMARY | 2024-10-13 16:07 | XMS_ITS | Encounter Summary ---
Author Organization [facility] Address [address] [facility] [place] [address] Phone Care Team Providers Care [employer] Truck Driver Name Role Phone Wali Pak MD Primary Care Provider Reason for Visit * Reason Comments Medication Refill Encounter Details Date Type Department Care Team (Late st Contact Info) Description 07/31/2023 Refill [facility] - [place] [address] [place] [address] Wali Pak MD [address] [facility] [place] [address] Medication Refill Social History Tobacco [...] suspected to have Coronavirus/COVID-19? No / Unsure 07/29/2023 5:41 AM CDT documented as of this encounter Miscellaneous Notes * Telephone Encounter - Wali Pak MD - 08/02/2023 11:53 AM CDT On Eliquis- should not take NSAID- risk of bleeding * Telephone Encounter - Enedelia Damon RN - 08/02/2023 10:40 AM CDT Medication failed the protocol, provider to review and approve the medication order if appropriate. Requested Prescriptions Pending Prescriptions Disp Refills naproxen (NAPROSYN) 500 MG Tablet [Pharmacy Med Name: NAPROXEN 500 MG TABLET] 60 Tablet 0 Sig: TAKE 1 TABLET BY MOUTH TWICE A DAY NEEDED FOR MILD OR MORE SEVERE PAIN NSAIDs Protocol Failed - 07/31/2023 7:54 AM Failed - No matching NSAID med order in past 45 days Matching medication order placed on 07/29/2023 5:50 AM Order [id number]: ibuprofen (MOTRIN) tablet 600 mg (For orders placed between 06/18/2023 10:40 AM and 08/02/2023 10:40 AM) Passed - Normal serum creatinine in past 12 months CREATININE, BLOOD Date Value Ref Range Status 04/21/2023 0.71 0.60 - 1.10 mg/dL Final Passed - Visit with relevant provider in past 12 months or upcoming 90 days Recent Visits Date Type Provider Dept 04/13/23 Office Visit Wali Pak MD [facility] [place] 08/10/22 Office Visit Wali Pak MD [facility] [place] Showing recent visits within past 365 days and meeting all other requirements Future Appointments Date Type Provider Dept 08/23/23 Appointment Wali Pak MD [facility] [place] Showing future appointments within next 90 days and meeting all other requirements Passed - AST less than 55 or ALT less than 90 in past 12 months SGOT (AST) Date Value Ref Range Status 04/21/2023 13 <=32 U/L Final SGPT (ALT) Date Value Ref Range Status 04/21/2023 18 <=41 U/L Final Passed - HGB greater than [...] Visit [facility] - Internal Medicine [place] [address] [place] [address] Wali Pak MD [address] [place] [address] documented as of this encounter Visit Diagnoses Not on filedocumented in this encounter Additional Health Concerns Assessment Noted Time PHQ-9 Depression Total Score: 10 023 8:00 AM CDT documented as of this encounter Care Teams Otr Company Truck Driver Relationship Specialty Start Date End Date Wali Pak MD [address] [place] [address] PCP - General Internal Medicine 12/30/15 documented as of this encounter
--- OUTSIDE RECORDS SUMMARY | 2024-10-13 16:07 | XMS_ITS | Encounter Summary ---
Author Organization [facility] Address [address] [facility] [facility] [place] [address] Phone Care Team Providers Care Director Of Nuclear Medicine Name Role Phone Wali Pak MD Primary Care Provider Reason for Visit * Reason Onset Date Comments Results 10/27/2023 Encounter Details Date Type Department Care Team (Late st Contact Info) Description 10/27/2023 Telephone [facility] [address] [place] [address] Wali Pak MD [address] [place] [address] Results Social History Tobacco Use [...] declined 10/11/2023 How often do you attend islam or faith serv ices? Patient declined 10/11/2023 Do you belong to any clubs o r organizations such as islam groups, unions, fraternal or athletic groups, or [...] Total Score - Questions 1-9 0 09/24 [facility] - Occupational Stress Questionnaire Answer Date [...] place to sleep or slept in a intermediate (including now)? Patient declined 10/11/2023 Education Answer [...] Telephone Encounter - Enedelia Damon RN - 10/27/2023 8:24 AM CST ----- Message from Wali Pak MD sent at 10/26/2023 8:05 AM PINKING SEWING MACHINE OPERATOR ----- CMP-okay. Thyroid function test, magnesium level, [id number]. Lipid profile-lipids elevated. Needs to be on cholesterol-lowering medication and low-cholesterol diet. ING SEWING MACHINE OPERATOR documented in this encounter Plan of Treatment Upcoming Encounters Date Type Department Care Team (Late st Contact Info) Description 02/05/2025 8:00 AM CDT Office Visit [facility] - Internal Medicine [place] [address] [place] [address] Wali Pak MD [address] [place] [address] documented as of this encounter Visit Diagnoses Not on filedocumented in this encounter Additional Health Concerns Assessment Noted Time PHQ-9 Depression Total Score: 0 10/11/20 23 8:20 AM PINKING SEWING MACHINE OPERATOR documented as of this encounter Care Teams Director Of Nuclear Medicine Relationship Specialty Start Date End Date Wali Pak MD [address] [place] [address] PCP - General Internal Medicine 12/30/15 documented as of this encounter
--- OUTSIDE RECORDS SUMMARY | 2024-10-13 16:07 | XMS_ITS | Encounter Summary ---
Author Organization [facility] Address [address] [facility] [place] [address] Phone Care Team Providers Care Public Health Service Officer Name Role Phone Wali Pak MD Primary Care Provider Reason for Visit * Reason Comments Diabetes Mellitus Needs medication ref illed Anxiety Encounter Details Date Type Department Care Team (Late st Contact Info) Description 04/13/2023 8:30 AM CDT Office Visit [facility] - Internal Medicine [facility] [address] [place] [address] Wali Pak MD [address] [facility] [place] [address] Type 2 diabetes mellitus without complication, without long-term current use of insulin (HCC) (Primary Dx); Generalized anxiety disorder; Essential hypertension, benign; Other hyperlipidemia; Restless leg syndrome; Bilateral lower extremity edema; Paroxysmal atrial flutter (HCC); Dysthymic disorder; Primary insomnia Discharge Disposition: Discharged to home or Selfcare Social History Tobacco Use Types Packs/Day Years Used Date Smoking Tobacco: Former Cigarettes 0.3 3 Smokeless Tobacco: Never Tobacco Cessation:Counseling Given: No [...] suspected to have Coronavirus/COVID-19? No / Unsure 04/13/2023 8:19 AM CDT documented as of this encounter Last Filed Vital Signs Vital Sign Reading Time Taken Comments Blood Pressure 138/82 04/13/2023 8:31 AM CDT Pulse 66 04/13/2023 8:31 AM CDT Temperature 36.1 ??C (96.9 ??F) 04/13/2023 8:31 AM CD T Respiratory Rate 14 04/13/2023 8:31 AM CDT Oxygen Saturation 98% 04/13/2023 8:31 AM CDT Inhaled Oxygen Concentration - - Weight 111.6 kg (246 lb) 04/13/2023 8:31 AM CDT Height 167.6 cm (5' 6 ) 04/13/2023 8:31 AM CDT Body Mass Index 39.71 04/13/2023 8:31 AM CDT documented in this encounter Functional Status * Question Answer Date of Assessment Author Little interest or pleasure in doing things Several days 04/13/2023 8:00 AM CDT Meeta Stratton RMA Feeling down, depressed, or hopeless Several days 04/13/2023 8:00 AM CDT Norma Stratton RMA * Over the past 2 weeks, how often have you been bothered by any of the following problems? Question Answer Date of Assessment Author Patient Health Questionnaire -2 Score 2 04/13/2023 8:00 AM CDT Norma Stratton RMA documented as of this encounter Progress Notes * Norma Stratton RMA - 04/13/2023 8:30 AM CDT Mervat Haro, 57 y.o., female is here for Diabetes Mellitus (Needs medication refilled ) and Anxiety Medication Refills: Patient reports/denies need for medication refills. Orders Pended: no Requested Prescriptions No prescriptions requested or ordered in this encounter Home Medications Medication Sig Start Date End Date Taking? Authorizing Provider aspirin EC 81 MG Tablet Delayed Response Take 81 mg by mouth daily. Yes Provider, MD Denice buPROPion (WELLBUTRIN) 100 MG Tablet Take 1/2 tab po bid 03/29/23 Yes Wali Pak MD arkczbmffe-iflpoyzcebqjt-miubeplp (FIORICET, ESGIC) 50-325-40 MG Tablet Take 1 Tab by mouth every 6hours as needed for Headaches. 08/06/20 Yes Wali Pak MD furosemide (LASIX) 20 MG Tablet TAKE 1 TABLET BY MOUTH DAILY NEEDED (SWELLING). 04/12/23 Yes Wali Pka MD LORazepam (ATIVAN) 0.5 MG Tablet Take 1 Tablet by mouth daily as needed for Anxiety. 07/07/22 Yes Wali Pak MD metFORMIN (GLUCOPHAGE) 500 MG Tablet Take 1 Tablet by mouth 2 times daily (with meals). Patient not taking: Reported on 04/13/2023 07/09/22 Wali Pak MD metoprolol Succinate (TOPROL-XL) 50 MG TABLET SR 24 HR TAKE 1 TABLET BY MOUTH EVERY DAY 12/31/21 Yes Wali Pak MD naproxen (NAPROSYN) 500 MG Tablet Take 1 Tablet by mouth 2 times daily as needed for Mild or more severe pain. 11/30/22 Yes Dylan Austin, rOPINIRole (REQUIP) 0.25 MG Tablet TAKE 1 TABLET BY MOUTH NIGHTLY 11/11/22 Yes Wali Pak MD There are no discontinued medications. I have reviewed the home medication list with the patient and have reconciled discrepancies. The list is accurate to the best of my knowledge. Smoking Status: Social History Tobacco Use ??? Smoking status: Former Packs/day: 0.25 Years: 3.00 Pack years: 0.75 Types: Cigarettes ??? Smokeless tobacco: Never ??? Tobacco comments: social Vaping Use ??? Vaping Use: Never used Substance Use Topics ??? Alcohol use: Yes Comment: social ??? Drug use: No Smoking Cessation Counseling Given: no Health Care Maintenance: Health Maintenance Due Topic Date Due ??? Hepatitis B Immunization (1 of 3 - 3-dose series) Never done ??? Diabetes: Eye Exam Never done ??? Hepatitis C Virus (HCV) Screening Never done ??? Pneumococcal Immunization Combined (1 - PCV) Never done ??? DTaP/Tdap/Td Immunization (1 - Tdap) Never done ??? Diabetes: Foot Exam Never done ??? Zoster Immunization (1 of 2) Never done ??? SARS-COV-2 Immunization (2 - Booster for Namrata series) 02/21/2021 ??? Mammogram 07/14/2023 Orders Pended: no The following BPA's have been addressed with the patient today: BMI * Wali Pak MD - 04/13/2023 8:30 AM CDT PROGRESS NOTE [facility] - [facility]ICINE [address] [place] [address] PHONE: [phone] FAX: [phone] 04/13/2023 NAME: Mervat Haro, : 1965, Assessment ASSESSMENT & PLAN: Return in about 3 months (around 07/14/2023) for diabetes. Diagnoses and all orders for this visit: Type 2 diabetes mellitus without complication, without long-term current use of insulin (HCC) Comments: Patient has stopped taking med formalin due to diarrhea. Continue low carb diet. Check HbA1c and decide further treatment. Orders: - CMP (COMPREHENSIVE METABOLIC PANEL); Future - LIPID PANEL; Future - HEMOGLOBIN A1C W/ ESTIMATED GLUCOSE; Future Generalized anxiety disorder Comments: Stable. Continue current medication Orders: - LORazepam (ATIVAN) 0.5 MG Tablet; Take 1 Tablet by mouth daily as needed for Anxiety. Essential hypertension, benign Comments: Controlled. Continue current medication Orders: - CMP (COMPREHENSIVE METABOLIC PANEL); Future - LIPID PANEL; Future Other hyperlipidemia Comments: Continue low-cholesterol diet Orders: - CMP (COMPREHENSIVE METABOLIC PANEL); Future - LIPID PANEL; Future Restless leg syndrome Comments: Stable. Continue current medication Bilateral lower extremity edema Comments: Continue p.r.n. furosemide Paroxysmal atrial flutter (HCC) Comments: Stable. Continue follow-up with stock driver Dysthymic disorder Comments: Increase bupropion 200 mg b.i.d.. Primary insomnia Comments: Start trazodone 25 mg at bedtime Other orders - naproxen (NAPROSYN) 500 MG Tablet; Take 1 Tablet by mouth 2 times daily as needed for Mild or more severe pain. - buPROPion (WELLBUTRIN) 100 MG Tablet; 1 tab po bid - traZODone (DESYREL) 50 MG Tablet; Take 0.5 Tablets by mouth nightly. Follow-up in 3 months, sooner if needed Chief Complaint Patient presents with ??? Diabetes Mellitus Needs medication refilled ??? Anxiety HPI Patient is here for follow-up for diabetes and other medical problems. Has stopped taking metformindue to abdominal cramps and diarrhea. FBS stays less than 140. Occasional tingling sensation of hands. No tingling numbness of feet. Recently seen at Urgent Care due to chest tightness along with palpitation shortness of breath. Diagnosed to have anxiety attack. She does get these symptoms off and on. Not related with any activities. Still feels down at times since good girlfriend recently.. No suicidal thoughts. Also has trouble with sleep. Has tried OTC medication without any help. ROS Review of systems was negative, except as documented in HPI PHYSICAL EXAM VITALS: Wt Readings from Last 3 Encounters: 04/13/23 246 lb (111.6 kg) 11/30/22 243 lb (110.2 kg) 08/10/22 243 lb (110.2 kg) Temp Readings from Last 3 Encounters: 04/13/23 96.9 ??F (36.1 ??C) (Temporal) 11/30/22 (!) 96.4 ??F (35.8 ??C) (Tympanic) 08/10/22 97.7 ??F (36.5 ??C) (Temporal) BP Readings from Last 3 Encounters: 04/13/23 138/82 11/30/22 147/78 08/10/22 118/70 Pulse Readings from Last 3 Encounters: 04/13/23 66 11/30/22 72 08/10/22 72 Physical Exam Vitals and nursing note reviewed. Constitutional: Appearance: Normal appearance. She is obese. HENT: Head: Normocephalic. Eyes: Extraocular Movements: Extraocular movements intact. Conjunctiva/sclera: Conjunctivae normal. Pupils: Pupils are equal, round, and reactive to light. Cardiovascular: Rate and Rhythm: Normal rate and regular rhythm. Pulses: Normal pulses. Heart sounds: Normal heart sounds. Pulmonary: Effort: Pulmonary effort is normal. Breath sounds: Normal breath sounds. Abdominal: General: Abdomen is flat. Bowel sounds are normal. Palpations: Abdomen is soft. Musculoskeletal: General: Normal [...] been reviewed and updated. Allergies Allergen Reactions ??? Latex Rash When wears latex herself ??? Penicillins Rash As a child / has had penicillin since then with no problems ??? Metformin Diarrhea Current Outpatient Medications: ??? aspirin EC 81 MG Tablet Delayed Response ??? buPROPion (WELLBUTRIN) 100 MG Tablet ??? livbbfwaas-ayibcfcvniusy-xqdjlmcw (FIORICET, ESGIC) 50-325-40 MG Tablet ??? furosemide (LASIX) 20 MG Tablet ??? LORazepam (ATIVAN) 0.5 MG Tablet ??? metoprolol Succinate (TOPROL-XL) 50 MG TABLET SR 24 HR ??? naproxen (NAPROSYN) 500 MG Tablet ??? rOPINIRole (REQUIP) 0.25 MG Tablet ??? traZODone (DESYREL) 50 MG Tablet I educated Mervat regarding diagnoses and plan of care. She verbalizes understanding and will callthe office if situation changes. Voice recognition software was utilized in this dictation. Despite proof reading, typographical errors and/or content errors may have occurred. By: Wali Pak MD 04/13/2023 10:17 AM CDT documented in this encounter Plan of Treatment Upcoming Encounters Date Type Department Care Team (Late st Contact Info) Description 02/05/2025 8:00 AM CDT Office Visit [facility] - Internal Medicine [facility] [address] [place] [phone] Wali Pak MD [address] [facility] [address] documented as of this encounter Results * HEMOGLOBIN A1C W/ ESTIMATED GLUCOSE (04/21/2023 7:27 AM CDT) HGB-A1C 5.9 4.0 - 6.0 % 04/21/2023 9:22 AM CDT [facility] Est Average Glucose 122.6 mg/dL 04/21/2023 9:22 AM CDT [facility] Blood Venipuncture / Unknown 04/21/2023 7:27 AM CDT 04/21/2023 8:21 AM CDT Narrative [facility] - 04/21/2023 9:22 AM CDT HEMOGLOBIN A1C: DIABETIC PATIENTS: WELL-CONTROLLED: ?? 6.2 - 7.0 INTERMEDIATE WELL-CONTROLLED: ??7.0 - 9.0 POORLY-CONTROLLED: ??>9.0 us Wali Pak MD CHEMISTRY ORDERABLES Final Result [facility] [address] [place] [address] * (ABNORMAL) LIPID PANEL (04/21/2023 7:27 AM CDT) CHOLESTEROL 199 <=200 mg/dL 04/21/2023 9:12 AM CDT [facility] TRIGLYCERIDES 98 <150 mg/dL 04/21/2023 9:12 AM CDT [facility] HDL CHOLESTEROL 40.7 >40 mg/dL 9:12 AM CDT [facility] LDL 139(H) 5 - 130 mg/dL 04/21/2023 9:12 AM CDT [facility] VLDL 20 5 - 55 mg/dL 04/21/2023 9:12 AM CDT [facility] CHOL/HDL RATIO 4.9(H) 0.0 - 4.4 04/21/2023 9:12 AM CDT [facility] NON-HDL CHOLESTEROL 158.3(H) <130 mg/dL 04/21/2023 9:12 AM CDT [facility] Blood Venipuncture / Unknown 04/21/2023 7:27 AM CDT 04/21/2023 8:20 AM CDT Wali Pak MD CHEMISTRY ORDERABLES Final Result [facility] [address] [place] [address] * (ABNORMAL) CMP (COMPREHENSIVE METABOLIC PANEL) (04/21/2023 7:27 AM CDT) SODIUM 143 136 - 144 mmol/L 04/21/2023 9:12 AM CDT [facility] POTASSIUM 4.2 3.5 - 5.1 mmol/L 04/21/2023 9:12 AM CDT [facility] CHLORIDE 109 100 - 110 mmol/L 04/21/2023 9:12 AM CDT [facility] CO2, VENOUS 26 22 - 32 mmol/L 04/21/2023 9:12 AM CDT [facility] ANION GAP 12.2 8.0 - 20.0 mmol/L 04/21/2023 9:12 AM CDT [facility] GLUCOSE 111(H) 70 - 99 mg/dL 04/21/2023 9:12 AM CDT [facility] BUN 17 6 - 20 mg/dL 04/21/2023 9:12 AM [facility] CREATININE, BLOOD 0.71 0.60 - 1.10 mg/dL 04/21/2023 9:12 AM [facility] BUN/CREATININE RATIO 24(H) 12 - 20 ratio 04/21/2023 9:12 AM [facility] TOTAL PROTEIN 6.7 6.0 - 8.3 g/dL 04/21/2023 9:12 AM [facility] ALBUMIN 4.0 3.5 - 5.2 g/dL 04/21/2023 9:12 AM [facility] Comment: The colormetric methods used for the determination of Albumin may lead to falsely elevated test results in patients suffering from renal failure or insufficiency due to interference with other proteins. A/G RATIO 1.5 1.0 - 2.0 04/21/2023 9:12 AM [facility] CALCIUM 9.5 8.9 - 10.3 mg/dL 04/21/2023 9:12 AM [facility] T BILI 0.4 <=1.2 mg/dL 04/21/2023 9:12 AM [facility] SGOT (AST) 13 <=32 U/L 04/21/2023 9:12 AM [facility] SGPT (ALT) 18 <=41 U/L 04/21/2023 9:12 AM [facility] ALKALINE PHOSPHATASE 90 35 - 105 U/L 04/21/2023 9:12 AM [facility] IS THE PATIENT REQUIRED TO BE FASTING? No 04/21/2023 9:12 AM [facility] GFR, ESTIMATED >60 >=60 04/21/2023 9:12 AM [facility] Comment: Creatinine Clearance is the preferred criteria for selecting drug dose adjustments in renally impaired patients. ??The GFR is provided as additional pertinent clinical information. GFR is reported in mL/min/1.73 sq m. Calculation based on the Chronic Kidney Disease Epidemiology Collaboration (CKD- EPI) equation refit without adjustment for race. GFR, EST. >60 >=60 023 9:12 AM CDT [facility] GFR, EST. NONAFRICAN >60 >=60 04/21/2023 9:12 AM CDT [facility] Blood Venipuncture / Unknown 04/21/2023 7:27 AM CDT 04/21/2023 8:20 AM CDT us Wali Pak MD CHEMISTRY ORDERABLES Final Result [facility] [address] [place] [address] documented in this encounter Visit Diagnoses Diagnosis Type 2 diabetes mellitus without complication, without long-term current use of insulin (HCC)- Primary Generalized anxiety disorder Essential hypertension, benign Other hyperlipidemia Restless leg syndrome Restless legs syndrome (RLS) Bilateral lower extremity edema Edema Paroxysmal atrial flutter (HCC) Atrial flutter Dysthymic disorder Primary insomnia Persistent disorder of initiating or maintaining sleep documented in this encounter Additional Health Concerns Assessment Noted Time PHQ-9 Depression Total Score: 10 023 8:00 AM CDT documented as of this encounter Care Teams Public Health Service Officer Relationship Specialty Start Date End Date Wali Pak MD [address] [place] [address] PCP - General Internal Medicine 12/30/15 documented as of this encounter
--- OUTSIDE RECORDS SUMMARY | 2024-10-13 16:07 | XMS_ITS | Encounter Summary ---
Author Organization [facility] Address [address] [facility] [place] [address] Phone Care Team Providers Care Oracle Business Analyst Name Role Phone Wali Pak MD Primary Care Provider Reason for Visit * Reason Comments Medication Refill Encounter Details Date Type Department Care Team (Late st Contact Info) Description 06/24/2023 Refill [facility] - [place] [address] [place] [address] Wali Pak MD [address] [facility] [place] [address] Medication Refill Social History Tobacco [...] Telephone Encounter - Enedelia Damon RN - 06/24/2023 8:28 AM CDT Medication failed the protocol, provider to review and approve the medication order if appropriate. Requested Prescriptions Pending Prescriptions Disp Refills naproxen (NAPROSYN) 500 MG Tablet [Pharmacy Med Name: NAPROXEN 500 MG TABLET] 60 Tablet 0 Sig: TAKE 1 TABLET BY MOUTH TWICE A DAY NEEDED FOR MILD OR MORE SEVERE PAIN NSAIDs Protocol Failed - 06/24/2023 2:29 AM Failed - No matching NSAID med order in past 45 days Matching medication order placed on 05/20/2023 9:22 AM Order [id number]: naproxen (NAPROSYN) 500 MG Tablet (For orders placed between 05/10/2023 8:28 AM and 06/24/2023 8:28 AM) Failed - HGB greater than 10 or HCT greater than 30 in past 12 months HEMOGLOBIN (HGB) Date Value Ref Range Status 12/24/2017 14.2 12.0 - 15.8 g/dL Final HEMATOCRIT (HCT) Date Value Ref Range Status 12/24/2017 43.9 36.0 - 47.0 % Final Passed - Normal serum creatinine in past 12 months CREATININE, BLOOD Date Value Ref Range Status 04/21/2023 0.71 0.60 - 1.10 mg/dL Final Passed - Visit with relevant provider in past 12 months or upcoming 90 days Recent Visits Date Type Provider Dept 04/13/23 Office Visit Wali Pak MD [facility] [place] 08/10/22 Office Visit Wali Pak MD [facility] [place] 07/07/22 Office Visit Wlai Pak MD [facility] [place] Showing recent visits within past 365 days and meeting all other requirements Future Appointments Date Type Provider Dept 07/14/23 Appointment [facility] [place] Showing future appointments within next 90 days and meeting all other requirements Passed - AST less than 55 or ALT less than 90 in past 12 months SGOT (AST) Date Value Ref Range Status 04/21/2023 13 <=32 U/L Final SGPT (ALT) Date Value Ref Range Status 04/21/2023 18 <=41 U/L Final documented in this encounter Plan of Treatment Upcoming Encounters Date Type Department Care Team (Late st Contact Info) Description 02/05/2025 8:00 AM CDT Office Visit [facility] - [facility] [place] [address] [place] [address] Wali Pak MD [address] [place] [address] documented as of this encounter Visit Diagnoses Not on filedocumented in this encounter Additional Health Concerns Assessment Noted Time PHQ-9 Depression Total Score: 10 023 8:00 AM CDT documented as of this encounter Care Teams Oracle Business Analyst Relationship Specialty Start Date End Date Wali Pak MD [address] [place] [address] PCP - General Internal Medicine 12/30/15 documented as of this encounter
--- OUTSIDE RECORDS SUMMARY | 2024-10-13 16:07 | XMS_ITS | Encounter Summary ---
Author Organization [facility] Address [address] [facility] [facility] [facility] [place] [address] Phone Care Team Providers Care Hall Worker Name Role Phone Wali Pak MD Primary Care Provider Encounter Details Date Type Department Care Team (Late st Contact Info) Description 03/29/2023 Telephone [facility] - Internal Medicine [facility] [address] [place] [address] Wali Pak MD [address] [facility] [place] [address] Social History Tobacco Use Types [...] Telephone Encounter - Wali Pak MD - 03/29/2023 9:20 AM CDT Bupropion refilled * Telephone Encounter - Payton Burns - 03/29/2023 8:48 AM CDT Med rf Medication - Bupropion Phone - [phone] Pharmacy - [facility] Made an appointment for 04-12-23 as she will be out of town next week and needs enough medicine to get her through. documented in this encounter Plan of Treatment Upcoming Encounters Date Type Department Care Team (Late st Contact Info) Description 02/05/2025 8:00 AM CDT Office Visit [facility] - Internal Medicine - [place] [address] [place] [address] Wali Pak MD [address] [place] [address] documented as of this encounter Visit Diagnoses Not on filedocumented in this encounter Additional Health Concerns Assessment Noted Time PHQ-9 Depression Total Score: 3 01/20/20 22 9:00 AM CDT documented as of this encounter Care Teams Hall Worker Relationship Specialty Start Date End Date Wali Pak MD [address] [place] [address] PCP - General Internal Medicine 12/30/15 documented as of this encounter
--- OUTSIDE RECORDS SUMMARY | 2024-10-13 16:07 | XMS_ITS | Encounter Summary ---
Author Organization [facility] Address [address] [facility] [place] [address] Phone Care Team Providers Care Dock Hand Name Role Phone Wali Pak MD Primary Care Provider [phone] Reason for Visit * Reason Comments Medication Refill Encounter Details Date Type Department Care Team (Late st Contact Info) Description 05/19/2023 Refill [facility] - [place] [address] [place] [address] Wali Pak MD [address] [facility] [place] [address] Medication Refill Social History Tobacco [...] suspected to have Coronavirus/COVID-19? No / Unsure 04/21/2023 7:23 AM CDT documented as of this encounter Miscellaneous Notes * Telephone Encounter - Enedelia Damon RN - 05/19/2023 2:25 PM CDT Medication failed the protocol, provider to review and approve the medication order if appropriate. Requested Prescriptions Pending Prescriptions Disp Refills naproxen (NAPROSYN) 500 MG Tablet [Pharmacy Med Name: NAPROXEN 500 MG TABLET] 60 Tablet 0 Sig: TAKE 1 TABLET BY MOUTH TWICE A DAY NEEDED FOR MILD OR MORE SEVERE PAIN NSAIDs Protocol Failed - 05/19/2023 2:15 PM Failed - No matching NSAID med order in past 45 days Matching medication order placed on 04/13/2023 8:47 AM Order [id number]: naproxen (NAPROSYN) 500 MG Tablet (For orders placed between 04/04/2023 2:25 PM and 05/19/2023 2:25 PM) Failed - HGB greater than 10 or [...] 04/13/23 Office Visit Wali Pak MD [facility] [place] 08/10/22 Office Visit Wali Pak MD [facility] [place] 07/07/22 Office Visit Wali Pak MD [facility] [place] Showing recent visits within past 365 days and meeting all other requirements Future Appointments Date Type Provider Dept 07/14/23 [facility]ointment [facility] [place] Show[facility] future appointments within [...] Visit [facility] - Internal Medicine [place] [address] [place] [address] Wali Pak MD [address] [place] [address] documented as of this encounter Visit Diagnoses Not on filedocumented in this encounter Additional Health Concerns Assessment Noted Time PHQ-9 Depression Total Score: 10 023 8:00 AM CDT documented as of this encounter Care Teams Dock Hand Relationship Specialty Start Date End Date Wali Pak MD [address] [place] [address] PCP - General Internal Medicine 12/30/15 documented as of this encounter
--- OUTSIDE RECORDS SUMMARY | 2024-10-13 16:07 | XMS_ITS | Encounter Summary ---
Author Organization [email or web address] Care Team Providers Care Wrapper Off Name Role Phone Wali Pak MD Primary Care Provider [phone] Encounter Details Date Type Department Care Team (Latest Contact Info) Description 10/22/2023 Travel Social History Tobacco Use Types Packs/Day Years Used Date Smoking Tobacco: Former Cigarettes 0.3 3 Smokeless Tobacco: Never Comments:social Alcohol Use Standard Drinks/Week Comments Yes 0 (1 standard drink = 0.6 oz pur e alcohol) social [employer] Utilities Answer Date Recorded In the past [...] declined 10/11/2023 How often do you attend caodaism or catholic serv ices? Patient declined 10/11/2023 Do you belong to any clubs o r organizations such as caodaism groups, unions, fraternal or athletic groups, or [...] Score - Questions 1-9 0 09/24 [facility] of Occupat ional [facility] - Occupational Stress Questionnaire Answer Date [...] place to sleep or slept in a [place] health [place] facility (including now)? 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
--- OUTSIDE RECORDS SUMMARY | 2024-10-13 16:07 | XMS_ITS | Encounter Summary ---
Author Organization [employer] Care Team Providers Care Executive Coach Name Role Phone Wali Pak MD Primary Care Provider Encounter Details Date Type Department Care Team (Latest Contact Info) Description 05/26/2023 Travel Social History Tobacco Use Types Packs/Day [...] AM CDT documented as of this encounter Plan of Treatment Upcoming Encounters Date Type Department Care Team ( st Contact Info) Description 02/05/2025 8:00 AM CDT Office Visit [facility] - Internal Medicine - [place] [address] [place] [address] Wali Pak MD [address] [place] [address] documented as of this encounter Visit Diagnoses Not on filedocumented in this encounter Additional Health Concerns Assessment Noted Time PHQ-9 Depression Total Score: 10 023 8:00 AM CDT documented as of this encounter Care Teams Executive Coach Relationship Specialty Start Date End Date Wali Pak MD [address] [place] [address] PCP - General Internal Medicine 12/30/15 documented as of this encounter
--- OUTSIDE RECORDS SUMMARY | 2024-10-13 16:07 | XMS_ITS | Encounter Summary ---
Author Organization [facility] Address [address] [facility] [place] [address] Phone Care Team Providers Care Tree Farmer Name Role Phone Wali Pak MD Primary Care Provider Reason for Visit * Reason Comments Medication Refill Encounter Details Date Type Department Care Team (Late st Contact Info) Description 03/23/2023 Refill [facility] - [place] [address] [place] [address] Wali Pak MD [address] [facility] [place] [address] Medication Refill Social History Tobacco [...] Telephone Encounter - Enedelia Damon RN - 03/23/2023 3:06 PM CDT Medication failed the protocol, provider to review and approve the medication order if appropriate. Requested Prescriptions Pending Prescriptions Disp Refills buPROPion (WELLBUTRIN) 100 MG Tablet [Pharmacy Med Name: BUPROPION HCL 100 MG TABLET] 7 Tablet 0 Sig: TAKE 1/2 TABLET BY MOUTH TWO TIMES A DAY Bupropion (6 Month Refill Only) Protocol Failed - 03/23/2023 11:19 AM Failed - Visit with relevant provider in past 6 months or upcoming 90 days Recent Visits No visits were found meeting these conditions. Showing recent visits within past 182 days and meeting all other requirements Future Appointments No visits were found meeting these conditions. Showing future appointments within next 90 days and meeting all other requirements Failed - Has an encounter in the past 6 months with a depression or anxiety visit diagnosis Passed - Patient has established therapy with Bupropion for at least 6 months documented in this encounter Plan of Treatment Upcoming Encounters Date Type Department Care Team (Late st Contact Info) Description 02/05/2025 8:00 AM CDT Office Visit [facility] - Internal Medicine [facility] [address] [place] [address] Wali Pak MD [address] [place] [address] documented as of this encounter Visit Diagnoses Not on filedocumented in this encounter Additional Health Concerns Assessment Noted Time PHQ-9 Depression Total Score: 3 01/20/20 22 9:00 AM CDT documented as of this encounter Care Teams Tree Farmer Relationship Specialty Start Date End Date Wali Pak MD [address] [place] [address] PCP - General Internal Medicine 12/30/15 documented as of this encounter
--- OUTSIDE RECORDS SUMMARY | 2024-10-13 16:07 | XMS_ITS | Encounter Summary ---
Author Organization [facility] Address [address] [facility] [place] [address] Phone Care Team Providers Care Engraving Operator Name Role Phone Wali Pak MD Primary Care Provider Encounter Details Date Type Department Care Team (Late st Contact Info) Description 02/04/2023 [facility] [address] [place] [address] Wali Pak MD [address] [place] [address] Visit for screening mammogram (Primary Dx) Social History Tobacco Use Types Packs/Day Years [...] [facility] - [facility] - [place] [address] [place] [address] Wali Pak MD [address] [place] [address] documented as of this encounter Visit Diagnoses Diagnosis Visit for screening mammogram- Primary Other screening mammogram documented in this encounter Additional Health Concerns Assessment Noted Time PHQ-9 Depression Total Score: 3 01/20/20 22 9:00 AM CDT documented as of this encounter Care Teams Engraving Operator Relationship Specialty Start Date End Date Wali Pak MD [address] [place] [address] PCP - General Internal Medicine 12/30/15 documented as of this encounter
--- OUTSIDE RECORDS SUMMARY | 2024-10-13 16:07 | XMS_ITS | Encounter Summary ---
Author Organization [facility] Address [address] [facility] [place] [address] Phone Care Team Providers Care Animal Laboratory Technician Name Role Phone Wali Pak MD Primary Care Provider Reason for Visit * Reason Comments Medication Refill Encounter Details Date Type Department Care Team (Late st Contact Info) Description 07/02/2023 Refill [facility] - [place] [address] [place] [address] Wali Pak MD [address] [facility] [place] [place] [address] Medication Refill Social History Tobacco [...] Telephone Encounter - Enedelia Damon RN - 07/02/2023 2:19 PM CDT Medication failed the protocol, provider to review and approve the medication order if appropriate. Requested Prescriptions Pending Prescriptions Disp Refills buPROPion (WELLBUTRIN) 100 MG Tablet [Pharmacy Med Name: BUPROPION HCL 100 MG TABLET] 60 Tablet 2 Sig: TAKE 1 TABLET BY MOUTH TWICE A DAY Bupropion (6 Month Refill Only) Protocol Passed - 07/02/2023 1:33 PM Passed - Visit with relevant provider in past 6 months or upcoming 90 days Recent Visits Date Type Provider Dept 04/13/23 Office Visit Wali Pak MD [facility] [place] Showing recent visits within past 182 days and meeting all other requirements Future Appointments Date Type Provider Dept 07/14/23 Appointment Wali Pak MD [facility] [place] Showing future appointments within next 90 days and meeting all other requirements Passed - Has an encounter in the past 6 months with a depression or anxiety visit diagnosis Passed - Patient has established therapy with Bupropion for at least 6 months traZODone (DESYREL) 50 MG Tablet [Pharmacy Med Name: TRAZODONE 50 MG TABLET] 15 Tablet 2 Sig: TAKE 1/2 TABLET BY MOUTH NIGHTLY Serotonin Modulators (6 Month Refill Only) Protocol Failed - 07/02/2023 1:33 PM Failed - Patient has established therapy with Serotonin Modulators for at least 6 months Passed - Visit with relevant provider in past 6 months or upcoming 90 days Recent Visits Date Type Provider Dept 04/13/23 Office Visit Wali Pak MD [facility] [place] Showing recent visits within past 182 days and meeting all other requirements Future Appointments Date Type Provider Dept 07/14/23 Appointment Wali Pak MD [facility] [place] Showing future appointments within next 90 days and meeting all other requirements Passed - Has an encounter in the past 6 months with a depression or anxiety visit diagnosis Passed - No PRN Use for Trazodone documented in this encounter Plan of Treatment Upcoming Encounters Date Type Department Care Team (Late st Contact Info) Description 02/05/2025 8:00 AM CDT Office Visit [facility] - Internal Medicine [place] [address] [place] [address] Wali Pak MD [address] [place] [address] documented as of this encounter Visit Diagnoses Not on filedocumented in this encounter Additional Health Concerns Assessment Noted Time PHQ-9 Depression Total Score: 10 023 8:00 AM CDT documented as of this encounter Care Teams Animal Laboratory Technician Relationship Specialty Start Date End Date Wali Pak MD [address] [place] [address] PCP - General Internal Medicine 12/30/15 documented as of this encounter
--- OUTSIDE RECORDS SUMMARY | 2024-10-13 16:07 | XMS_ITS | Encounter Summary ---
Author Organization [facility] Address [address] [facility] [place] [address] Phone Care Team Providers Care Hand Gluer And Slicer Name Role Phone Wali Pak MD Primary Care Provider [phone] Reason for Visit * Reason Comments Medication Refill Encounter Details Date Type Department Care Team (Late st Contact Info) Description 04/10/2023 Refill [facility] - [place] [address] [place] [address] Wali Pak MD [address] [facility] [place] [address] Medication Refill Social History Tobacco Use Types Packs/Day Years Used Date Smoking Tobacco: Former Cigarettes 0.3 3 Smokeless Tobacco: Never Comments:social Alcohol Use Standard Drinks/Week Comments Yes 0 (1 standard drink = 0.6 oz pur e alcohol) social PHQ-2 Answer Date Recorded Total Score - Questions 1-9 10 03/26 Sexually Active Control Partners Comments Not Currently [...] Telephone Encounter - Enedelia Damon RN - 04/12/2023 8:30 AM CDT [facility]ication[facility] Standing Order for Pediatricand Adult Patients. Requested Prescriptions Pending Prescriptions Disp Refills ??? furosemide (LASIX) 20 MG Tablet [Pharmacy Med Name: FUROSEMIDE 20 MG TABLET] 90 Tablet 0 Sig: TAKE 1 TABLET BY MOUTH DAILY NEEDED (SWELLING). Diuretics Protocol Passed - 04/10/2023 7:48 AM Passed - Serum potassium on record in [...] Dept 08/10/22 Office Visit Wali Pak MD [facility] [place] 07/07/22 Office Visit Wali Pak MD [facility] [place] Showing recent visits within past 365 days and meeting all other requirements Future Appointments Date Type Provider Dept 04/13/23 Appointment Wali Pak MD [facility] [place] Showing future appointments within next 90 days and meeting all other requirements Passed - GFR on record in past 12 months GFR, EST. NONAFRICAN Date Value Ref Range Status 07/08/2022 >60 >=60 Final documented in this encounter Plan of Treatment Upcoming Encounters Date Type Department Care Team (Late st Contact Info) Description 02/05/2025 8:00 AM CDT Office Visit [facility] - Internal Medicine [place] [address] [place] [address] Wali Pak MD [address] [place] [address] documented as of this encounter Visit Diagnoses Not on filedocumented in this encounter Additional Health Concerns Assessment Noted Time PHQ-9 Depression Total Score: 3 01/20/20 22 9:00 AM CDT documented as of this encounter Care Teams Hand Gluer And Slicer Relationship Specialty Start Date End Date Wali Pak MD [address] [place] [address] PCP - General Internal Medicine 12/30/15 documented as of this encounter
--- OUTSIDE RECORDS SUMMARY | 2024-10-13 16:07 | XMS_ITS | Encounter Summary ---
Author Organization [employer] Care Team Providers Care Night Clerk Auditor Name Role Phone Wali Pak MD Primary Care Provider Encounter Details Date Type Department Care Team (Latest Contact Info) Description 07/29/2023 Travel Social History Tobacco Use Types Packs/Day [...] [facility] - [place] [address] [place] [address] Wali Pak MD [address] [place] [address] documented as of this encounter Visit Diagnoses Not on filedocumented in this encounter Additional Health Concerns Assessment Noted Time PHQ-9 Depression Total Score: 10 023 8:00 AM CDT documented as of this encounter Care Teams Night Clerk Auditor Relationship Specialty Start Date End Date Wali Pak MD [address] [place] [address] PCP - General Internal Medicine 12/30/15 documented as of this encounter
--- OUTSIDE RECORDS SUMMARY | 2024-10-13 16:07 | XMS_ITS | Encounter Summary ---
Author Organization [facility] Address [address] [facility] [place] [address] Phone Care Team Providers Care Tree Fruit And Nut Crops Farmer Name Role Phone Wali Pak MD Primary Care Provider Reason for Visit * Reason Comments Medication Refill Encounter Details Date Type Department Care Team (Late st Contact Info) Description 09/29/2023 Refill [facility] - Internal Medicine - [place] [address] [place] [address] Tereza Lujan, PAC [address] [place] [address] Medication Refill Social History Tobacco Use Types [...] Telephone Encounter - Enedelia Damon RN - 09/29/2023 8:31 AM CST Medication failed the protocol, provider to review and approve the medication order if appropriate. Requested Prescriptions Pending Prescriptions Disp Refills traZODone (DESYREL) 50 MG Tablet [Pharmacy Med Name: TRAZODONE 50 MG TABLET] 45 Tablet 0 Sig: TAKE 1/2 TABLET BY MOUTH NIGHTLY Serotonin Modulators (6 Month Refill Only) Protocol Failed - 09/29/2023 12:40 AM Failed - Patient has established therapy with Serotonin Modulators for at least 6 months Passed - Visit with relevant provider in past 6 months or upcoming 90 days Recent Visits Date Type Provider Dept 04/13/23 Office Visit Wali Pak MD [facility] [place] Showing recent visits within past 182 days and meeting all other requirements Future Appointments Date Type Provider Dept 10/11/23 Appointment Wali Pak MD [facility] [place] Showing future appointments within next 90 days and meeting all other requirements Passed - Has an encounter in the past 6 months with a depression or anxiety visit diagnosis Passed - No PRN Use for Trazodone E FEEDER documented in this encounter Plan of Treatment Upcoming Encounters Date Type Department Care Team (Late st Contact Info) Description 02/05/2025 8:00 AM CDT [facility] - [place] [address] [place] [address] Wali Pak MD [address] [place] [address] documented as of this encounter Visit Diagnoses Not on filedocumented in this encounter Additional Health Concerns Assessment Noted Time PHQ-9 Depression Total Score: 10 023 8:00 AM CDT documented as of this encounter Care Teams Tree Fruit And Nut Crops Farmer Relationship Specialty Start Date End Date Wali Pak MD [address] [place] [address] PCP - General Internal Medicine 12/30/15 documented as of this encounter
--- OUTSIDE RECORDS SUMMARY | 2024-10-13 16:07 | XMS_ITS | Encounter Summary ---
Author Organization [employer] Care Team Providers Care User Experience Architect Name Role Phone Wali Pak MD Primary Care Provider Encounter Details Date Type Department Care Team (Latest Contact Info) Description 04/21/2023 Travel Social History Tobacco Use Types Packs/Day [...] [facility] - [place] [address] [place] [address] Wali Pak MD [address] [place] [address] documented as of this encounter Visit Diagnoses Not on filedocumented in this encounter Additional Health Concerns Assessment Noted Time PHQ-9 Depression Total Score: 10 023 8:00 AM CDT documented as of this encounter Care Teams User Experience Architect Relationship Specialty Start Date End Date Wali Pak MD [address] [place] [address] PCP - General Internal Medicine 12/30/15 documented as of this encounter
--- OUTSIDE RECORDS SUMMARY | 2024-10-13 16:07 | XMS_ITS | Encounter Summary ---
Author Organization [facility] Address [address] [facility] [place] [address] Phone Care Team Providers Care Bit Setter Name Role Phone Wali Pak MD Primary Care Provider Reason for Visit * Reason Onset Date Comments Medication Refill 03/25/2023 Encounter Details Date Type Department Care Team (Late st Contact Info) Description 03/25/2023 Refill [facility] - Internal Medicine [facility] [address] [place] [address] Wali Pak MD [address] [place] [address] Medication Refill Social History Tobacco [...] AM CDT documented as of this encounter Functional Status [...] Stratton RMA documented as of this encounter Miscellaneous Notes * Telephone Encounter - Payton Burns - 03/25/2023 8:35 AM CDT Med rf Medication - Lorazepam Phone - [phone] Pharmacy - [facility] - [place] Best friend and she is having a difficult time getting through it. documented in this encounter Plan of Treatment Upcoming Encounters Date Type Department Care Team (Late st Contact Info) Description 02/05/2025 8:00 AM CDT [facility] - [place] [address] [place] [address] Wali Pak MD [address] [place] [address] documented as of this encounter Visit Diagnoses Diagnosis Generalized anxiety disorder documented in this encounter Additional Health Concerns Assessment Noted Time PHQ-9 Depression Total Score: 3 01/20/20 22 9:00 AM CDT documented as of this encounter Care Teams Bit Setter Relationship Specialty Start Date End Date Wali Pak MD [address] [place] [address] PCP - General Internal Medicine 12/30/15 documented as of this encounter
--- OUTSIDE RECORDS SUMMARY | 2024-10-13 16:07 | XMS_ITS | Encounter Summary ---
Author Organization [facility] Address [address] [facility] [place] [address] Phone Care Team Providers Care Sole Molder Name Role Phone Wali Pak MD Primary Care Provider [phone] Reason for Visit * Reason Comments Medication Refill Encounter Details Date Type Department Care Team (Late st Contact Info) Description 08/18/2023 Refill [facility] - [place] [address] [place] [address] Wali Pak MD [address] [facility] [place] [address] Medication Refill Social History Tobacco [...] Telephone Encounter - Wali Pak MD - 08/18/2023 11:38 AM CDT Patient should not take naproxen since on Eliquis. * Telephone Encounter - Enedelia Damon RN - 08/18/2023 11:09 AM CDT Medication failed the protocol, provider to review and approve the medication order if appropriate. Requested Prescriptions Pending Prescriptions Disp Refills naproxen (NAPROSYN) 500 MG Tablet [Pharmacy Med Name: NAPROXEN 500 MG TABLET] 60 Tablet 0 Sig: TAKE 1 TABLET BY MOUTH TWICE A DAY NEEDED FOR MILD OR MORE SEVERE PAIN NSAIDs Protocol Failed - 08/18/2023 11:04 AM Failed - No matching NSAID med order in past 45 days Matching medication order placed on 07/29/2023 5:50 AM Order [id number]: ibuprofen (MOTRIN) tablet 600 mg (For orders placed between 07/04/2023 11:09 AM and 08/18/2023 11:09 AM) Passed - Normal serum creatinine in past 12 months CREATININE, BLOOD Date Value Ref Range Status 04/21/2023 0.71 0.60 - 1.10 mg/dL Final Passed - Visit with relevant provider in past 12 months or upcoming 90 days Recent Visits Date Type Provider Dept 04/13/23 Office Visit Wali Pak MD [facility] Showing recent visits within past 365 days and meeting all other requirements Future Appointments Date Type Provider Dept 08/23/23 Appointment Wali Pak MD [facility] [...] Visit [facility] - Internal Medicine [facility] [address] [place] [address] Wali Pak MD [address] [place] [address] documented as of this encounter Visit Diagnoses Not on filedocumented in this encounter Additional Health Concerns Assessment Noted Time PHQ-9 Depression Total Score: 10 023 8:00 AM CDT documented as of this encounter Care Teams Sole Molder Relationship Specialty Start Date End Date Wali Pak MD [address] [place] [address] PCP - General Internal Medicine 12/30/15 documented as of this encounter
--- OUTSIDE RECORDS SUMMARY | 2024-10-13 16:07 | XMS_ITS | Encounter Summary ---
Author Organization [facility] Address [address] [facility] [address] Phone Care Team Providers Care Wheat And Oats Flake Miller Name Role Phone Wali Pak MD Primary Care Provider Reason for Visit * Reason Comments Sore Throat Encounter Details Date Type Department Care Team (Late st Contact Info) Description 07/29/2023 5:50 AM CDT - 07/29/2023 8:12 AM CDT Emergency [facility] Emergency [address] [place] [address] Luis Silva MD [address] [place] [address] Uvulitis Discharge Disposition: Discharged to home or Selfcare [...] Sign Reading Time Taken Comments Blood Pressure 133/63 07/29/2023 8:00 AM CDT Pulse 81 07/29/2023 8:00 AM CDT Temperature 37.3 ??C (99.1 ??F) 07/29/2023 5 :38 AM CDT Respiratory Rate 18 07/29/2023 5:38 AM CDT Oxygen Saturation 98% 07/29/2023 8:0 0 AM CDT Inhaled Oxygen Concentration - - Weight 102.1 kg (225 lb) 07/29/2023 5:3 8 AM CDT BMI incorrect due to technical error Height 166.4 cm (5' 5.5 ) 07/29/2023 5: 38 AM CDT BMI incorrect due to technical error Body Mass Index 36.87 07/29/2023 5:38 AM CDT documented in this encounter Discharge Instructions * Attachments The following attachments cannot be sent through Care Everywhere. * Tonsillitis (Salvadorean) documented in this encounter Medications at Time of Discharge aspirin EC 81 MG Tablet Delayed Response Take 81 mg by mouth daily. furosemide (LASIX) 20 MG Tablet TAKE 1 TABLET BY MOUTH DAILY NEEDED (SWELLING). 90 Tablet 04/12/2023 Magnesium Gluconate 550 MG Tablet Take 30 mg by mouth. apixaban (Eliquis) 5 MG Tablet TAKE 1 TABLET BY MOUTH EVERY 12 HOURS 10/11/2023 atorvastatin (LIPITOR) 20 MG Tablet Take 20 mg by mouth daily. 05/27/2023 02/07/2024 azithromycin (ZITHROMAX) 250 MG Tablet Take 1 Tablet by mouth daily for 5 days. 2 tab(s) daily for 1 day, then 1 tab(s) daily for days 2-5. 6 Tablet 07/29/2023 08/03/2023 buPROPion (WELLBUTRIN) 100 MG Tablet TAKE 1 TABLET BY MOUTH TWICE A DAY 60 Tablet 2 07/04/2023 10/04/2023 dexamethasone (Decadron) 4 MG Tablet Take 1 Tablet by mouth daily for 2 days. 2 Tablet 07/30/2023 08/01/2023 HYDROcodone-aceta minophen (NORCO) 5-325 MG TabletIndications :Tonsillitis Take 1 Tablet by mouth every 8 hours as needed for Severe pain. 8 Tablet 07/29/2023 10/11/2023 ibuprofen (MOTRIN) 800 MG Tablet 01/25/2024 Levothyroxine Sodium 25 MCG Capsule Take 1 capsule every day by oral route. 10/11/2023 liothyronine (CYTOMEL) 25 MCG Tablet 10/11/2023 LORazepam (ATIVAN) 0.5 MG Tablet Take 0.5 mg by mouth. 02/05/2020 10/11/2023 LORazepam (ATIVAN) 0.5 MG TabletIndications :Generalized anxiety disorder Take 1 Tablet by mouth daily as needed for Anxiety. 15 Tablet 04/13/2023 10/11/2023 metFORMIN (GLUCOPHAGE-XR) 500 MG TABLET SR 24 HR 10/11/2023 metoprolol Succinate (TOPROL-XL) 50 MG TABLET SR 24 HR TAKE 1 TABLET BY MOUTH EVERY DAY 30 Tablet 2 12/31/2021 02/07/2024 naproxen (NAPROSYN) 500 MG Tablet TAKE 1 TABLET BY MOUTH TWICE A DAY NEEDED FOR MILD OR MORE SEVERE PAIN 60 Tablet 06/24/2023 01/25/2024 orphenadrine (NORFLEX) 100 MG TABLET SR 12 HR TAKE 1 TAB BY MOUTH 2 TIMES DAILY NEEDED FOR MUSCLE SPASMS. 10/11/2023 rOPINIRole (REQUIP) 0.25 MG Tablet TAKE 1 TABLET BY MOUTH NIGHTLY 30 Tablet 3 11/11/2022 10/11/2023 traZODone (DESYREL) 50 MG Tablet TAKE 1/2 TABLET BY MOUTH NIGHTLY 15 Tablet 2 07/04/2023 09/29/2023 documented as of this encounter ED Notes * Grace Rodriguez RN - 07/29/2023 8:10 AM CDT Patient discharged. Discharge instructions and patient educational material reviewed with patient; questions and concerns addressed; patient verbalizes understanding, using teach back. Patient was given three prescriptions. Patient was informed no drinking alcohol, driving or operating heavy machinery while taking narcotics or muscle relaxants. Patient discharged per ambulatory mode with belongings. D/C'ed with Miguel cath intact. * Grace Rodriguez RN - 07/29/2023 7:38 AM CDT Patient ambulatory to restroom with steady gait. * Grace Rodriguez RN - 07/29/2023 6:54 AM CDT Pt medicated per provider orders. Pt educated on intended effects and side effects of medication and verbalized understanding, able to provide teach back of education. * Gordon Evans RN - 07/29/2023 6:43 AM CDT Report given to Grace SHEETS. * Grace Rodriguez RN - 07/29/2023 6:42 AM CDT Report received from SUDEEP Leyva. * Luis Silva MD - 07/29/2023 6:40 AM CDT Chief Complaint Patient presents with ??? Sore Throat Patient is a very pleasant 58-year-old female with past medical history of hypertension, diabetes who presents with complaint of sore throat. Patient states that she is been having sore throat, ear pain and chills since Wednesday evening. Her biggest complaint is sore throat, she reports it 7/10, worse with swallowing, aching quality. She denies fevers but reports intermittent chills. No cough, shortness of breath, abdominal pain, nausea or vomiting. She also reports ear discomfort bilaterally. Patient was seen at urgent care a couple days ago, swab for COVID, flu and strep which were negative. No current facility-administered medications for this encounter. Current Outpatient Medications Medication Sig Dispense Refill ??? apixaban (Eliquis) 5 MG Tablet TAKE 1 TABLET BY MOUTH EVERY 12 HOURS ??? aspirin EC 81 MG Tablet Delayed Response Take 81 mg by mouth daily. ??? atorvastatin (LIPITOR) 20 MG Tablet Take 20 mg by mouth daily. ??? azithromycin (ZITHROMAX) 250 MG Tablet Take 1 Tablet by mouth daily for 5 days. 2 tab(s) daily for 1 day, then 1 tab(s) daily for days 2-5. 6 Tablet 0 ??? buPROPion (WELLBUTRIN) 100 MG Tablet TAKE 1 TABLET BY MOUTH TWICE A DAY 60 Tablet 2 ??? [START ON 07/30/2023] dexamethasone (Decadron) 4 MG Tablet Take 1 Tablet by mouth daily for 2 days. 2 Tablet 0 ??? furosemide (LASIX) 20 MG Tablet TAKE 1 TABLET BY MOUTH DAILY NEEDED (SWELLING). 90 Tablet 0 ??? HYDROcodone-acetaminophen (NORCO) 5-325 MG Tablet Take 1 Tablet by mouth every 8 hours as needed for Severe pain. 8 Tablet 0 ??? ibuprofen (MOTRIN) 800 MG Tablet ??? Levothyroxine Sodium 25 MCG Capsule Take 1 capsule every day by oral route. ??? liothyronine (CYTOMEL) 25 MCG Tablet ??? LORazepam (ATIVAN) 0.5 MG Tablet Take 0.5 mg by mouth. ??? LORazepam (ATIVAN) 0.5 MG Tablet Take 1 Tablet by mouth daily as needed for Anxiety. 15 Tablet 0 ??? Magnesium Gluconate 550 MG Tablet Take 30 mg by mouth. ??? metFORMIN (GLUCOPHAGE-XR) 500 MG TABLET SR 24 HR ??? metoprolol Succinate (TOPROL-XL) 50 MG TABLET SR 24 HR TAKE 1 TABLET BY MOUTH EVERY DAY 30 Tablet 2 ??? naproxen (NAPROSYN) 500 MG Tablet TAKE 1 TABLET BY MOUTH TWICE A DAY NEEDED FOR MILD OR MORESEVERE PAIN 60 Tablet 0 ??? orphenadrine (NORFLEX) 100 MG TABLET SR 12 HR TAKE 1 TAB BY MOUTH 2 TIMES DAILY NEEDED FOR MUSCLE SPASMS. ??? rOPINIRole (REQUIP) 0.25 MG Tablet TAKE 1 TABLET BY MOUTH NIGHTLY 30 Tablet 3 ??? traZODone (DESYREL) 50 MG Tablet TAKE 1/2 TABLET BY MOUTH NIGHTLY 15 Tablet 2 Allergies Allergen Reactions ??? Latex Rash When wears latex herself ??? Penicillins Rash As a child / has had penicillin since then with no problems ??? Metformin Diarrhea Past Medical History Positives Diagnosis Date ??? Hypertension Past Surgical History: Procedure Laterality Date ??? APPENDECTOMY ??? FINGER TRIGGER RELEASE Right 12/27/2017 Procedure: TRIGGER FINGER RELEASE RIGHT MIDDLE FINGER; Surgeon: Duran Marmolejo MD; Location: [facility]; Service: Orthopaedic ??? HYSTERECTOMY ??? KNEE ARTHROSCOPY 2013 Social History Socioeconomic History ??? Marital status: Spouse name: Not on file ??? Number of children: Not on file ??? Years of education: Not on file ??? Highest education level: Some college, no degree Occupational History ??? 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 Smoking status: Former Packs/day: 0.25 Years: 3.00 Pack years: 0.75 Types: Cigarettes ??? Smokeless tobacco: Never ??? Tobacco comments: social Vaping Use ??? Vaping Use: Never used Substance and Sexual Activity ??? Alcohol use: Yes Comment: social ??? Drug use: No ??? Sexual activity: Not Currently Other Topics Concern ??? Not on file Social History Narrative ??? Not on file BP 143/56 Pulse 79 Temp 99.1 ??F (37.3 ??C) (Tympanic) Resp 18 Ht 5' 5.5 (1.664 m) Wt 225 lb (102.1 kg) SpO2 99% BMI 36.87 kg/m?? Review of Systems All other systems reviewed and are negative. Physical Exam Vitals and nursing note reviewed. Constitutional: General: She is not in acute distress. Appearance: Normal appearance. She is not ill-appearing. HENT: Head: Normocephalic and atraumatic. Nose: Nose normal. Mouth/Throat: Mouth: Mucous membranes are moist. Comments: There is moderate swelling of the uvula, uvula is midline. Tonsils are 3+, no tonsillar asymmetry. Moderate pharyngeal erythema. Mild exudate bilaterally. Airway grossly patent Eyes: Extraocular Movements: Extraocular movements intact. Cardiovascular: Rate and Rhythm: Normal rate. Pulmonary: Effort: Pulmonary effort is normal. No respiratory distress. Breath sounds: No stridor. No rhonchi. Skin: General: Skin is warm and dry. Neurological: Mental Status: She is alert and oriented to person, place, and time. Procedures Recent Results (from the past 24 hour(s)) POCT Group A Strep Screen Rapid Result Value Ref Range POC STREP SCRN Presumptive negative Invalid, Presumptive negative, VOID POC STREP SCREEN CONTROL Child Welfare Director Pass Ogemaw Test(Infectious Ogemaw) [id number] Result Value Ref Range MONO TEST Negative Negative CBC with Auto Differential Result Value Ref Range WBC 10.72 4.00 - 12.00 10(3)/mcL RBC 4.39 3.80 - 5.30 10(6)/mcL HEMOGLOBIN (HGB) 13.2 12.0 - 15.8 g/dL HEMATOCRIT (HCT) 42.2 36.0 - 47.0 % MCV 96.1 (H) 82.0 - 96.0 fL MCH 30.1 26.0 - 34.0 pg MCHC 31.3 31.0 - 36.0 g/dL PLATELET COUNT 241 140 - 440 10(3)/mcL RDW 13.6 11.8 - 15.5 % MPV 10.4 9.7 - 12.4 fL NEUTROPHILS 73.6 (H) 47.0 - 73.0 % LYMPHOCYTES 15.4 (L) 18.0 - 42.0 % MONOCYTES 7.8 4.0 - 12.0 % EOSINOPHILS 2.8 0.0 - 5.0 % BASOPHILS 0.4 0.0 - 1.0 % ABSOLUTE NEUTROPHILS 7.89 (H) 1.60 - 7.70 10(3)/mcL ABSOLUTE LYMPHOCYTES 1.65 1.30 - 3.20 10(3)/mcL ABSOLUTE MONOCYTES 0.84 0.20 - 1.00 10(3)/mcL ABSOLUTE EOSINOPHIL 0.30 0.00 - 0.40 10(3)/mcL ABSOLUTE BASOPHILS 0.04 0.00 - 0.10 10(3)/mcL NRBC PER 100 WBC 0 Imaging Results None MDM Clinical Impression 1. Tonsillitis 2. Uvulitis Disposition: Discharged ED Course as of 07/29/23 0758 Opal Jul 29, 2023 0643 Patient is a very pleasant 58-year-old female who presents with complaint of sore throat, chills and ear pain. Differential diagnosis includes viral infection, tonsillitis, mono, strep throat. Peritonsillar abscess was considered but it is unlikely given the patient's presentation and physicalexamination, no indication for the CT of the neck at this time. Will check basic CBC, mono, treat with Decadron, will consider antibiotics as it is unclear at thistime if this is a bacterial or viral illness. [DK] 0745 Patient is doing better, her uvular edema is somewhat improved, airway is grossly patent. Her physical exam is most consistent with tonsillitis, at this time antibiotics will be prescribed as itis still unclear whether this is viral or bacterial. No further emergent workup is indicated. Patient will be discharged home with antibiotics and analgesia. [DK] ED Course User Index [DK] Luis Silva MD * Meena Luther RN - 07/29/2023 5:46 AM CDT Patient states that she had a negative flu, COVID and Strep swab at Urgent Care on Wednesday. * Meena Luther RN - 07/29/2023 5:42 AM CDT Patient presents to triage ambulatory with complaint of sore, swollen throat since 2 days [employer]. States she does have difficulty swallowing at times due to swelling and pain. Alert and oriented x4. Respirations non labored. documented in this encounter Plan of Treatment Upcoming Encounters Date Type Department Care Team (Late st Contact Info) Description 02/05/2025 8:00 AM CDT Office Visit [facility] - Internal Medicine - [place] [address] [place] [address] Wali Pak MD [address] [place] [address] documented as of this encounter Procedures Procedure Name Priority Date/Time Associated Diagnosis Comments CBC WITH AUTO DIFFERENTIAL STAT 07/29/2023 6:41 AM CDT MONO TEST (INFECTIOUS MONONUCLEOSIS) STAT 07/29/2023 6:41 AM CDT COMPLETE BLOOD COUNT (CBC) WITH DIFF STAT 07/29/2023 6:41 AM CDT EXTRA TUBES STAT 07/29/2023 6:40 AM CDT [facility] [facility] HIGGIN[place] HEPARIN/SST TOP TUBE STAT 07/29/2023 6:40 AM CDT POCT GROUP A STREP SCREEN RAPID STAT 07/29/2023 5:57 AM CDT CULTURE, GRP A STREPTOCOCCUS, CULT ONLY STAT 07/29/2023 5:50 AM CDT documented in this encounter Results * (ABNORMAL) CBC with Auto Differential (07/29/2023 6:41 AM CDT) WBC 10.72 4.00 - 12.00 10(3)/mcL 07/29/2023 7:06 AM CDT [facility] RBC 4.39 3.80 - 5.30 10(6)/mcL 07/29/2023 7:06 AM CDT [facility] HEMOGLOBIN (HGB) 13.2 12.0 - 15.8 g/dL 07/29/2023 7:06 AM CDT [facility] HEMATOCRIT (HCT) 42.2 36.0 - 47.0 % 07/29/2023 7:06 AM CDT [facility] MCV 96.1(H) 82.0 - 96.0 fL 07/29/2023 7:06 AM CDT [facility] MCH 30.1 26.0 - 34.0 pg 07/29/2023 7:06 AM CDT [facility] MCHC 31.3 31.0 - 36.0 g/dL 07/29/2023 7:06 AM CDT [facility] PLATELET COUNT 241 140 - 440 10(3)/mcL 07/29/2023 7:06 AM CDT [facility] RDW 13.6 11.8 - 15.5 % 07/29/2023 7:06 AM CDT [facility] MPV 10.4 9.7 - 12.4 fL 07/29/2023 7:06 AM CDT [facility] NEUTROPHILS 73.6(H) 47.0 - 73.0 % 07/29/2023 7:06 AM CDT [facility] LYMPHOCYTES 15.4(L) 18.0 - 42.0 % 07/29/2023 7:06 AM CDT [facility] MONOCYTES 7.8 4.0 - 12.0 % 07/29/2023 7:06 [facility] EOSINOPHILS 2.8 0.0 - 5.0 % 07/29/2023 7:06 AM CDT [facility] BASOPHILS 0.4 0.0 - 1.0 % 07/29/2023 7:06 AM CDT [facility] ABSOLUTE NEUTROPHILS 7.89(H) 1.60 - 7.70 10(3)/mcL 07/29/2023 7:06 AM CDT [facility] ABSOLUTE LYMPHOCYTES 1.65 1.30 - 3.20 10(3)/mcL 07/29/2023 7:06 AM CDT [facility] ABSOLUTE MONOCYTES 0.84 0.20 - 1.00 10(3)/mcL 07/29/2023 7:06 AM CDT [facility] ABSOLUTE EOSINOPHIL 0.30 0.00 - 0.40 10(3)/mcL 07/29/2023 7:06 AM CDT [facility] ABSOLUTE BASOPHILS 0.04 0.00 - 0.10 10(3)/mcL 07/29/2023 7:06 AM CDT [facility] NRBC PER 100 WBC 0 07/29/20 7:06 AM CDT [facility] Blood Venipuncture / Unknown 07/29/2023 6:41 AM CDT 07/29/2023 7:01 AM CDT us Luis Silva MD HEMATOLOGY ORDERABLES Final Resu lt Performing Organization Address City/[facility]/ZIP Co de Phone Number [facility] [address] [place] [address] * Ogemaw Test(Infectious Ogemaw) [id number] (07/29/2023 6:41 AM CDT) MONO TEST Negative Negative 07/29/2023 7:39 AM CDT [facility] Blood Venipuncture / Unknown 07/29/2023 6:41 AM CDT 07/29/2023 7:01 AM CDT us Luis Silva MD IMMUNOLOGY ORDERABLES Final Resu lt Performing Organization Address City/[facility] Co de Phone Number [facility] [address] [place] [address] * [facility] [facility] HIGGIN[place] HEPARIN/SST TOP TUBE (07/29/2023 6:40 AM CDT) Blood No Phlebotomy Charged / Unknown 07/29/2023 6:40 AM CDT 07/29/2023 7:02 AM CDT us Luis Silva MD HEMATOLOGY ORDERABLES Final Resu lt Performing Organization Address City/[facility] Co de Phone Number [facility] [address] [place] [address] * POCT Group A Strep Screen Rapid (07/29/2023 5:57 AM CDT) POC STREP SCRN Presumptive negative Invalid, Presumptive negative, VOID POC STREP SCREEN CONTROL Child Welfare Director Pass 07/29/2023 5:57 AM CDT us Michael Pettit MD POINT OF CARE TESTING ([facility]) Final Result * Culture, Grp A Streptococcus, Cult Only (07/29/2023 5:50 AM CDT) CULTURE RESULTS NO STREP PYOGENES (GROUP A BETA HEMOLYTIC STREP) ISOLATED AFTER 2 DAYS 07/31/2023 8:58 AM CDT [facility] Culture SPECIMEN FROM THROAT / Unknown Non-Phlebotomy Collection / Unknown 07/29/2023 5:50 AM CDT 07/29/2023 7:01 AM CDT us Luis Silva MD MICROBIOLOGY - GENERAL ORDERABLE S Final Result Performing Organization Address City/State/[facility] Co de Phone Number [facility] [address] [place] [address], documented in this encounter Visit Diagnoses Diagnosis Tonsillitis- Primary Acute tonsillitis Uvulitis Cellulitis and abscess of oral soft tissues documented in this encounter Administered Medications Inactive Administered Medications - up to 3 most recent administrations Medication Order MAR Action Action Date Dose Rate Site dexamethasone (DECADRON) injection 6 mg 6 mg, Intravenous, ONCE, 1 dose, On Opal 07/29/23 at 0700 Given 07/29/2023 6:54 AM CDT 6 mg ibuprofen (MOTRIN) tablet 600 mg 600 mg, Oral, ONCE, 1 dose, On Opal 07/29/23 at 0630 Given 07/29/2023 5:58 AM CDT 600 mg documented in this encounter Active and Recently Administered Medications Times are shown in CDT. Scheduled Medication Order 07/27/2023 07/28/2023 07/29/2023 dexamethasone (DECADRON) injection 6 mg (COMPLETED) 6 mg, Intravenous, ONCE, 1 dose, On Opal 07/29/23 at 0700 0654 (Given - Provid er: Grace Rodriguez RN) ibuprofen (MOTRIN) tablet 600 mg (COMPLETED) 600 mg, Oral, ONCE, 1 dose, On Opal 07/29/23 at 0630 0506 (Given - Provid er: Gordon Evans, RN) documented in this encounter Additional Health Concerns Assessment Noted Time PHQ-9 Depression Total Score: 10 023 8:00 AM CDT documented as of this encounter Care Teams Wheat [employer] Oats Flake Miller Relationship Specialty Start Date End Date Wali Pak MD [address] [place] [address] PCP - General Internal Medicine 12/30/15 documented as of this encounter
--- OUTSIDE RECORDS SUMMARY | 2024-10-13 16:07 | XMS_ITS | Encounter Summary ---
Author Organization [facility] Address [address] [facility] [place] [address] Phone Care Team Providers Care Forensic Pathologist Name Role Phone Wali Pak MD Primary Care Provider Encounter Details Date Type Department Care Team (Late st Contact Info) Description 04/22/2023 Telephone [facility] - Internal Medicine - [place] [address] [place] [address] Wali Pak MD [address] [facility] [place] [address] Social History Tobacco Use Types [...] encounter Miscellaneous Notes * Telephone Encounter - Daynaa Chapa CMA - 04/22/2023 11:19 AM CDT Spoke to patient and gave lab results. * Telephone Encounter - Dayana Chapa CMA - 04/22/2023 11:06 AM CDT LMOM to call office. * Telephone Encounter - Dayana Chapa CMA - 04/22/2023 11:06 AM CDT ----- Message from Enedelia Damon RN sent at 04/22/2023 10:11 AM CDT ----- ----- Message ----- From: Tereza Lujan PAC Sent: 04/22/2023 8:19 AM CDT To: Mari Hidalgo Nurse [place] [facility] stable NNO documented in this encounter Plan of Treatment Upcoming Encounters Date Type Department Care Team (Late st Contact Info) Description 02/05/2025 8:00 AM CDT Office Visit [facility] - Internal Medicine - [place] [address] [place] [address] Wali Pak MD [address] [place] [address] documented as of this encounter Visit Diagnoses Not on filedocumented in this encounter Additional Health Concerns Assessment Noted Time PHQ-9 Depression Total Score: 10 023 8:00 AM CDT documented as of this encounter Care Teams Forensic Pathologist Relationship Specialty Start Date End Date Wali Pak MD [address] [place] [address] PCP - General Internal Medicine 12/30/15 documented as of this encounter
--- OUTSIDE RECORDS SUMMARY | 2024-10-13 16:07 | XMS_ITS | Encounter Summary ---
Author Organization [facility] Address [address] [facility] [place] [address] Phone Care Team Providers Care Manager Reading Name Role Phone Wali Pak MD Primary Care Provider Reason for Visit * Reason Comments Medication Refill Encounter Details Date Type Department Care Team (Late st Contact Info) Description 03/26/2023 Telephone [facility] - [place] [address] [place] [address] Wali Pak MD [address] [facility] [place] [address] Medication Refill Social History Tobacco [...] encounter Miscellaneous Notes * Telephone Encounter - Letty Whalen - 03/26/2023 4:07 PM CDT Medication Refill Medication: LORazepam Pharmacy: [facility] in [place] documented in this encounter Plan of Treatment Upcoming Encounters Date Type Department Care Team (Late st Contact Info) Description 02/05/2025 8:00 AM CDT Office Visit [facility] - [facility] [address] [place] [address] Wali Pak MD [address] [place] [address] documented as of this encounter Visit Diagnoses Diagnosis Generalized anxiety disorder documented in this encounter Additional Health Concerns Assessment Noted Time PHQ-9 Depression Total Score: 3 01/19/ 22 9:00 AM CDT documented as of this encounter Care Teams Manager Reading Relationship Specialty Start Date End Date Wali Pak MD [address] [place] [address] PCP - General Internal Medicine 12/30/15 documented as of this encounter
--- OUTSIDE RECORDS SUMMARY | 2024-10-13 16:07 | XMS_ITS | Encounter Summary ---
Author Organization [facility] Address [address] [facility] [place] [address] Phone Care Team Providers Care Senior Project Manager Engineering Name Role Phone Wali Pak MD Primary Care Provider Reason for Visit * Reason Comments Medication Refill Encounter Details Date Type Department Care Team (Late st Contact Info) Description 03/11/2023 Refill [facility] - [place] [address] [place] [address] Wali Pak MD [address] [place] [address] Medication Refill Social History Tobacco [...] Telephone Encounter - Enedelia Damon RN - 03/11/2023 8:13 AM CDT Medication failed the protocol, provider to review and approve the medication order if appropriate. Requested Prescriptions Pending Prescriptions Disp Refills buPROPion (WELLBUTRIN) 100 MG Tablet [Pharmacy Med Name: BUPROPION HCL 100 MG TABLET] 30 Tablet 0 Sig: TAKE 1/2 TABLET BY MOUTH TWO TIMES A DAY Bupropion (6 Month Refill Only) Protocol Failed - 03/11/2023 12:55 AM Failed - Visit with relevant provider [...] Visit [facility] - Internal Medicine [facility] [address] [place] [address] Wali Pak MD [address] [place] [address] documented as of this encounter Visit Diagnoses Not on filedocumented in this encounter Additional Health Concerns Assessment Noted Time PHQ-9 Depression Total Score: 3 01/20/20 22 9:00 AM CDT documented as of this encounter Care Teams Senior Project Manager Engineering Relationship Specialty Start Date End Date Wali Pak MD [address] [place] [address] PCP - General Internal Medicine 12/30/15 documented as of this encounter
--- OUTSIDE RECORDS SUMMARY | 2024-10-13 16:07 | XMS_ITS | Encounter Summary ---
Author Organization [facility] Address [address] [place] [address] Phone Care Team Providers Care Flooring Salesperson Name Role Phone Wali Pak MD Primary Care Provider Reason for Visit * Radiology Services (Routine) - Closed Specialty Diagnoses / Procedures Referred By Contac t Referred To Contact Radiology Diagnoses Visit for screening mammogram Procedures YECENIA SCREENING BILATERAL DIGITAL W CAD W SHY YECENIA SCREENING BILATERAL DIGITAL W CAD Wali Pak MD [address] [place] [address] Phone: tel: fax: Referral ID Status Reason Start Date Expiration Date Visits Re quested Visits Authorized [id number] Closed 02/04/2023 1 1 Encounter Details Date Type Department Care Team (Late st Contact Info) Description 05/26/2023 7:36 AM CDT - 05/26/2023 11:59 PM CDT Hospital Encounter [facility] [address] [place] [address] Wali Pak MD [address] [place] [address] Discharge Disposition: Discharged to home or Selfcare [...] AM CDT documented as of this encounter Medications at Time of Discharge aspirin EC 81 MG Tablet Delayed Response Take 81 mg by mouth daily. furosemide (LASIX) 20 MG Tablet TAKE 1 TABLET BY MOUTH DAILY NEEDED (SWELLING). 90 Tablet 04/12/2023 buPROPion (WELLBUTRIN) 100 MG Tablet Take 100 mg by mouth. 12/28/2019 06/30/2023 buPROPion (WELLBUTRIN) 100 MG Tablet 1 tab po bid 60 Tablet 2 04/13/2023 07/04/2023 butalbital-acetam inophen-caffeine (FIORICET, ESGIC) 50-325-40 MG Tablet Take 1 Tab by mouth every 6 hours as needed for Headaches. 15 Tab 1 08/06/2020 07/29/2023 LORazepam (ATIVAN) 0.5 MG Tablet Take 0.5 mg by mouth. 02/05/2020 10/11/2023 LORazepam (ATIVAN) 0.5 MG TabletIndications :Generalized anxiety disorder Take 1 Tablet by mouth daily as needed for Anxiety. 15 Tablet 04/13/2023 10/11/2023 metoprolol Succinate (TOPROL-XL) 50 MG TABLET SR 24 HR TAKE 1 TABLET BY MOUTH EVERY DAY 30 Tablet 2 12/31/2021 02/07/2024 naproxen (NAPROSYN) 500 MG Tablet Take 500 mg by mouth. 11/30/2022 06/30/2023 naproxen (NAPROSYN) 500 MG Tablet TAKE 1 TABLET BY MOUTH TWICE A DAY NEEDED FOR MILD OR MORE SEVERE PAIN 60 Tablet 05/20/2023 06/24/2023 rOPINIRole (REQUIP) 0.25 MG Tablet TAKE 1 TABLET BY MOUTH NIGHTLY 30 Tablet 3 11/11/2022 10/11/2023 traZODone (DESYREL) 50 MG Tablet Take 0.5 Tablets by mouth nightly. 15 Tablet 2 04/13/2023 07/04/2023 documented as of this encounter Plan of Treatment Upcoming Encounters Date Type Department Care Team (Late st Contact Info) Description 02/05/2025 8:00 AM CDT Office Visit [facility] - Internal Medicine - [place] [address] [place] [address] Wali Pak MD [address] [place] [address] documented as of this encounter Procedures Procedure Name Priority Date/Time Associated Diagnosis Comments YECENIA SCREENING BILATERAL DIGITAL W CAD W SHY Routine 05/26/2023 7:55 AM CDT Visit for screening mammogram documented in this encounter Results * YECENIA SCREENING BILATERAL DIGITAL W CAD [...] Comparison is made to exams dated: ??07/14/2021 [facility], 10/04/2014, 09/22/2014, and 12/09/2011 [facility]. ?? BREAST TISSUE:There are scattered fibroglandular [...] Rosa Newton M.D. ? ll/penrad:05/26/2023 16:10:50 ?? Rubber Trimmer(s): Ines ?? RT Jose Juan(Marie)(M), [facility] letter sent: Normal Exam ?? Reading location: [facility] BI-RADS: 1 Negative Procedure Note Rosa Newton [...] Comparison is made to exams dated: 07/14/2021 [facility], 10/04/2014, 09/22/2014, and 12/09/2011 [facility]. BREAST TISSUE:There are scattered fibroglandular densities [...] exam. Electronically signed by: Rosa henriquez/jimmy:05/26/2023 16:10:50 Rubber Trimmer(s): Ines Manzano RT(R)(M), [facility] letter sent: Normal Exam Reading location: [facility] BI-RADS: 1 Negative us Wali Pak MD IMG MAMMO ORDERABLES Final Result documented in this encounter Visit Diagnoses Diagnosis Visit for screening mammogram Other screening mammogram documented in this encounter Additional Health Concerns Assessment Noted Time PHQ-9 Depression Total Score: 10 023 8:00 AM CDT documented as of this encounter Care Teams Flooring Salesperson Relationship Specialty Start Date End Date Wali Pak MD [address] [place] [address] PCP - General Internal Medicine 12/30/15 documented as of this encounter
--- OUTSIDE RECORDS SUMMARY | 2024-10-13 16:07 | XMS_ITS | Encounter Summary ---
Author Organization [facility] Address [address] [facility] [place] [place] [address] Phone Care Team Providers Care Electronics Tech Name Role Phone Wali Pak MD Primary Care Provider Reason for Visit * Reason Comments Medication Refill Encounter Details Date Type Department Care Team (Late st Contact Info) Description 10/04/2023 Refill [facility] - [place] [address] [place] [phone] Tereza Lujan, PAC [address] [place] [address] Medication Refill Social History Tobacco Use Types [...] Telephone Encounter - Enedelia Damon RN - 10/04/2023 11:04 AM CST Medication([facility]) [facility] Med[facility] Refill Standing Order for Pediatricand Adult Patients. Requested Prescriptions Pending Prescriptions Disp Refills ??? buPROPion (WELLBUTRIN) 100 MG Tablet [Pharmacy Med Name: BUPROPION HCL 100 MG TABLET] 180 Tablet 0 Sig: TAKE 1 TABLET BY MOUTH TWICE A DAY Bupropion (6 Month Refill Only) Protocol Passed - 10/04/2023 12:47 AM Passed - Visit with relevant provider in past 6 months or upcoming 90 days Recent Visits Date Type Provider Dept 04/13/23 Office Visit Wali Pak MD [facility] [place] Show[place] recent visits within past 182 days and meeting all other requirements Future Appointments Date Type Provider Dept 10/11/23 Appointment Wali Pak MD [facility] [place] Showing future appointments within next 90 days and meeting all other requirements Passed - Has an encounter in the past 6 months with a depression or anxiety visit diagnosis Passed - Patient has established therapy with Bupropion for at 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 6 months 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 documented in this encounter Plan of Treatment Upcoming Encounters Date Type Department Care Team (Late st Contact Info) Description 02/05/2025 8:00 AM CDT Office Visit [facility] - [place] [address] [place] [address] Wali Pak MD [address] [place] [address] documented as of this encounter Visit Diagnoses Not on filedocumented in this encounter Additional Health Concerns Assessment Noted Time PHQ-9 Depression Total Score: 10 023 8:00 AM CDT documented as of this encounter Care Teams Electronics Tech Relationship Specialty Start Date End Date Wali Pak MD [address] [place] [address] PCP - General Internal Medicine 12/30/15 documented as of this encounter
--- OUTSIDE RECORDS SUMMARY | 2024-10-13 16:07 | XMS_ITS | Encounter Summary ---
Author Organization [facility] Address [address] [facility] [place] [place] [address] Phone Care Team Providers Care Unit Support Representative Name Role Phone Wali Pak MD Primary Care Provider Reason for Visit * Reason Comments Medication Refill Encounter Details Date Type Department Care Team (Late st Contact Info) Description 02/09/2023 Refill [facility] Medicine - [place] [address] [place] [address] Wali Pak MD [address] [facility] [place] [address] Medication Refill Social History Tobacco [...] Telephone Encounter - Enedelia Damon RN - 02/09/2023 8:25 AM CDT Medication failed the protocol, provider to review and approve the medication order if appropriate. Requested Prescriptions Pending Prescriptions Disp Refills buPROPion (WELLBUTRIN) 100 MG Tablet [Pharmacy Med Name: BUPROPION HCL 100 MG TABLET] 30 Tablet 0 Sig: TAKE 1/2 TABLET BY MOUTH TWO TIMES A DAY Bupropion (6 Month Refill Only) Protocol Failed - 02/09/2023 1:06 AM Failed - Visit with relevant provider [...] Visit [facility] - Internal Medicine [facility] [address] [place] [address] Wali Pak MD [address] [place] [address] documented as of this encounter Visit Diagnoses Not on filedocumented in this encounter Additional Health Concerns Assessment Noted Time PHQ-9 Depression Total Score: 3 01/20/20 22 9:00 AM CDT documented as of this encounter Care Teams Unit Support Representative Relationship Specialty Start Date End Date Wali Pak MD [address] [place] [address] PCP - General Internal Medicine 12/30/15 documented as of this encounter
--- OUTSIDE RECORDS SUMMARY | 2024-10-13 16:07 | XMS_ITS | Encounter Summary ---
Author Organization [facility] Address [address] [facility] [place] [address] Phone Care Team Providers Care Control Officer Manager Name Role Phone Wali Pak MD Primary Care Provider [phone] Reason for Visit * Reason Onset Date Comments Medication Refill 02/11/2023 Encounter Details Date Type Department Care Team (Late st Contact Info) Description 02/11/2023 Telephone [facility] [address] [place] [address] Wali Pak MD [address] [place] [address] Medication Refill Social History Tobacco [...] encounter Miscellaneous Notes * Telephone Encounter - AlyJanuary - 02/22/2023 3:10 PM CDT Called patient at 3:10 p.m. to schedule an appointment, left voicemail to call back and schedule * Telephone Encounter - Tereza Lujan, MATHEUS - 02/12/2023 2:10 PM CDT Last HA1C was She is past due Make OV for labs and OV with PCP Dm is not controlled Talk to her, how many times a day does she check now? Can do with that; at least once daily * Telephone Encounter - Enedelia Damon RN - 02/11/2023 3:49 PM CDT I dont see this anywhere in her med history. How often should she be testing? * Telephone Encounter - AlyJanuary - 02/11/2023 10:59 AM CDT Refill Request Medication: one touch ultra test strips [facility] documented in this encounter Plan of Treatment Upcoming Encounters Date Type Department Care Team (Late st Contact Info) Description 02/05/2025 8:00 AM CDT Office Visit [facility] - Internal Medicine [facility] [address] [place] [id number] Wali Pak MD [address] [place] [address] documented as of this encounter Visit Diagnoses Not on filedocumented in this encounter Additional Health Concerns Assessment Noted Time PHQ-9 Depression Total Score: 3 01/20/20 22 9:00 AM CDT documented as of this encounter Care Teams Control Officer Manager Relationship Specialty Start Date End Date Wali Pak MD [address] [place] [address] PCP - General Internal Medicine 12/30/15 documented as of this encounter
--- OUTSIDE RECORDS SUMMARY | 2024-10-13 16:07 | XMS_ITS | Encounter Summary ---
Author Organization [employer] Care Team Providers Care Executive Chef Assistant Name Role Phone Wali Pak MD Primary Care Provider [phone] Encounter Details Date Type Department Care Team (Latest Contact Info) Description 04/13/2023 Travel Social History Tobacco Use Types Packs/Day [...] [place] RMA documented as of this encounter Plan of Treatment Upcoming Encounters Date Type Department Care Team (Late st Contact Info) Description 02/05/2025 8:00 AM CDT Office Visit [facility] Medicine - [place] [address] [place] [place] [address] Wali Pak MD [address] [place] [address] documented as of this encounter Visit Diagnoses Not on filedocumented in this encounter Additional Health Concerns Assessment Noted Time PHQ-9 Depression Total Score: 10 023 8:00 AM CDT documented as of this encounter Care Teams Executive Chef Assistant Relationship Specialty Start Date End Date Wali Pak MD [address] [place] [address] PCP - General Internal Medicine 12/30/15 documented as of this encounter
--- OUTSIDE RECORDS SUMMARY | 2024-10-13 16:07 | XMS_ITS | Encounter Summary ---
Author Organization [facility] Address [address] [place] [address] Phone Care Team Providers Care Polymer Chemist Name Role Phone Wali Pak MD Primary Care Provider Reason for Visit * Reason Comments Diabetes Mellitus 3 mo f/u Medication Refill Encounter Details Date Type Department Care Team (Late st Contact Info) Description 10/11/2023 8:15 AM WILDLIFE ECOLOGIST Office Visit [facility] - Internal Medicine [facility] [address] [place] [address] Wali Pak MD [address] [place] [address] Type 2 diabetes mellitus without complication, without long-term current use of insulin (HCC) (Primary Dx); Generalized anxiety disorder; Essential hypertension, benign; Other hyperlipidemia; Other specified hypothyroidism; Hypomagnesemia Discharge Disposition: Discharged to home or Selfcare Social History Tobacco Use Types Packs/Day Years Used Date Smoking Tobacco: Former Cigarettes 0.3 3 Smokeless Tobacco: Never Tobacco Cessation:Counseling Given: No Comments:social Alcohol Use Standard Drinks/Week Comments Yes 0 (1 standard drink = 0.6 oz pur e alcohol) social [facility] Utilities Answer Date Recorded In the past 12 months has th e [employer], gas, oil, or water [employer] threatened to shut off services in your home? Patient declined 10/11/2023 Social Connection and Isolation Panel [NHANES] A nswer Date Recorded In a typical week, how many times do you talk on the phone with family, friends, or neighbors? Patient declined 10/11/2023 How often do you get togethe r with friends or relatives? Patient declined 10/11/2023 How often do you attend denominational or denominational serv ices? Patient declined 10/11/2023 Do you belong to any clubs o r organizations such as denominational groups, unions, fraternal or athletic groups, or [...] Total Score - Questions 1-9 0 09/24 [facility] Occupat ional Health - Occupational Stress [...] Sign Reading Time Taken Comments Blood Pressure 118/72 10/11/2023 8:16 AM WILDLIFE ECOLOGIST Pulse 82 10/11/2023 8:16 AM WILDLIFE ECOLOGIST Temperature 37.1 ??C (98.8 ??F) 10/11/2023 8:16 AM CS T Respiratory Rate - - Oxygen Saturation 98% 10/11/2023 8:16 AM WILDLIFE ECOLOGIST Inhaled Oxygen Concentration - - Weight 109.3 kg (241 lb) 10/11/2023 8:16 AM WILDLIFE ECOLOGIST Height 166.4 cm (5' 5.5 ) 10/11/2023 8:16 AM WILDLIFE ECOLOGIST Body Mass Index 39.49 10/11/2023 8:16 AM WILDLIFE ECOLOGIST documented in this encounter Functional Status * [...] Toth CMA documented as of this encounter Progress Notes * Dayana Chapa CMA - 10/11/2023 8:15 AM CST Mervat Haro is a 58 y.o. female with current BMI: Body mass index is 39.49 kg/m??. Interventions discussed including: encourage daily physical activity and well- balanced diet. LIFE ECOLOGIST * Dayana Chapa CMA - 10/11/2023 8:15 AM CST Mervat screened for Social Determinants of Health and patient declined to answer the questions. LIFE ECOLOGIST * Dayana Chapa CMA - 10/11/2023 8:15 AM CST Mervat Haro, 58 y.o., female is here for Diabetes Mellitus (3 mo f/u) and Medication Refill Medication Refills: Patient reports/denies need for medication refills. Orders Pended: yes Requested Prescriptions Pending Prescriptions Disp Refills ??? LORazepam (ATIVAN) 0.5 MG Tablet 15 Tablet 0 Sig: Take 1 Tablet by mouth daily as needed for Anxiety. Home Medications Medication Sig Start Date End Date Taking? Authorizing Provider apixaban (Eliquis) 5 MG Tablet TAKE 1 TABLET BY MOUTH EVERY 12 HOURS Patient not taking: Reported on 10/11/2023 Denice Watts MD aspirin EC 81 MG Tablet Delayed Response Take 81 mg by mouth daily. Yes Denice Watts MD atorvastatin (LIPITOR) 20 MG Tablet Take 20 mg by mouth daily. Patient not taking: Reported on 10/11/2023 05/27/23 Denice Watts MD buPROPion (WELLBUTRIN) 100 MG Tablet TAKE 1 TABLET BY MOUTH TWICE A DAY 10/04/23 Yes Tereza Lujan PAC furosemide (LASIX) 20 MG Tablet TAKE 1 TABLET BY MOUTH DAILY NEEDED (SWELLING). 04/12/23 Yes Wali Pak MD HYDROcodone-acetaminophen (NORCO) 5-325 MG Tablet Take 1 Tablet by mouth every 8 hours as needed for Severe pain. Patient not taking: Reported on 10/11/2023 07/29/23 Luis Silva MD ibuprofen (MOTRIN) 800 MG Tablet Yes Denice Watts MD Levothyroxine Sodium 25 MCG Capsule Take 1 capsule every day by oral route. Patient not taking: Reported on 10/11/2023 Denice Watts MD liothyronine (CYTOMEL) 25 MCG Tablet Denice Watts MD LORazepam (ATIVAN) 0.5 MG Tablet Take 1 Tablet by mouth daily as needed for Anxiety. 04/13/23 Yes Wali Pak MD LORazepam (ATIVAN) 0.5 MG Tablet Take 0.5 mg by mouth. Patient not taking: Reported on 10/11/2023 02/05/20 Denice Watts MD Magnesium Gluconate 550 MG Tablet Take 30 mg by mouth. Yes Denice Watts MD metFORMIN (GLUCOPHAGE-XR) 500 MG TABLET SR 24 HR Denice Watts MD metoprolol Succinate (TOPROL-XL) 50 MG TABLET SR 24 HR TAKE 1 TABLET BY MOUTH EVERY DAY 12/31/21 Yes Wali Pak MD naproxen (NAPROSYN) 500 MG Tablet TAKE 1 TABLET BY MOUTH TWICE A DAY NEEDED FOR MILD OR MORE SEVERE PAIN 06/24/23 Yes Wali Pak MD orphenadrine (NORFLEX) 100 MG TABLET SR 12 HR TAKE 1 TAB BY MOUTH 2 TIMES DAILY NEEDED FOR MUSCLE SPASMS. Patient not taking: Reported on 10/11/2023 Denice Watts MD rOPINIRole (REQUIP) 0.25 MG Tablet TAKE 1 TABLET BY MOUTH NIGHTLY Patient not taking: Reported on 10/11/2023 11/11/22 Wali Pak MD traZODone (DESYREL) 50 MG Tablet TAKE 1/2 TABLET BY MOUTH NIGHTLY 09/29/23 Yes Wali Pak MD There are no discontinued medications. I have reviewed the home medication list with the patient and have reconciled discrepancies. The list is accurate to the best of my knowledge. Smoking Status: Social History Tobacco Use ??? Smoking status: Former Packs/day: 0.25 Years: 3.00 Additional pack years: 0.00 Total pack years: 0.75 Types: Cigarettes ??? Smokeless tobacco: Never ??? Tobacco comments: social Vaping Use ??? Vaping Use: Never used Substance Use Topics ??? Alcohol use: Yes Comment: social ??? Drug use: No Smoking Cessation Counseling Given: no Health Care Maintenance: Health Maintenance Due Topic Date Due ??? Diabetes: Eye Exam Never done ??? Hepatitis C Virus (HCV) Screening Never done ??? DTaP/Tdap/Td Immunization (1 - Tdap) Never done ??? Zoster Immunization (1 of 2) Never done ??? SARS-COV-2 Immunization ( season) 2023 ??? Hepatitis B Immunization (1 of 3 - Risk 3-dose series) Never done ??? Respiratory Syncytial Virus (RSV) Immunization (Adult - or age 60+ years) (1 - 1-dose 60+ series) Never done Orders Pended: no The following BPA's have been addressed with the patient today: Flu, Smoking, Depression and Fall Risk LIFE ECOLOGIST * Wali Pak MD - 10/11/2023 8:15 AM CST PROGRESS NOTE [facility] - INTERNAL MEDICINE [address] [place] [address] PHONE: [phone] FAX: [phone] 10/11/2023 NAME: Mervat Haro, : 1965, Assessment ASSESSMENT & PLAN: Return in about 3 months (around 01/10/2024) for anxiety. Diagnoses and all orders for this visit: Type 2 diabetes mellitus without complication, without long-term current use of insulin (HCC) Comments: Patient is off metformin. Will continue low carb diet. Check HbA1c and decide further treatment. Orders: - CMP (COMPREHENSIVE METABOLIC PANEL); Future - LIPID PANEL; Future - HEMOGLOBIN A1C W/ ESTIMATED GLUCOSE; Future Generalized anxiety disorder Comments: Stable. Continue current medication Orders: - LORazepam (ATIVAN) 0.5 MG Tablet; Take 1 Tablet by mouth daily as needed for Anxiety. Essential hypertension, benign Comments: Controlled. Continue current medication. Orders: - CMP (COMPREHENSIVE METABOLIC PANEL); Future - LIPID PANEL; Future Other hyperlipidemia Comments: Continue low-cholesterol diet. Patient is off atorvastatin. Orders: - CMP (COMPREHENSIVE METABOLIC PANEL); Future - LIPID PANEL; Future Other specified hypothyroidism Comments: Patient is not taking levothyroxine. Will check free T4 and TSH and decide further treatment. Orders: - THYROXINE (T4) FREE; Future - THYROID STIMULATING HORMONE (TSH); Future Hypomagnesemia - MAGNESIUM (MG); Future Check CMP, lipid profile, HbA1c, free T4, TSH, mg level. Follow-up in 3 months, sooner if needed. Chief Complaint Patient presents with ??? Diabetes Mellitus 3 mo f/u ??? Medication Refill HPI Patient is here for follow-up for diabetes and other medical problems. FBS stays between 110-120. Not taking metformin. Also not taking Lipitor and levothyroxine also. Tolerating medications well. Occasional use of lorazepam. ROS Review of systems was negative, except as documented in HPI PHYSICAL EXAM VITALS: Wt Readings from Last 3 Encounters: 10/11/23 241 lb (109.3 kg) 07/29/23 225 lb (102.1 kg) 04/13/23 246 lb (111.6 kg) Temp Readings from Last 3 Encounters: 10/11/23 98.8 ??F (37.1 ??C) (Temporal) 07/29/23 99.1 ??F (37.3 ??C) (Tympanic) 04/13/23 96.9 ??F (36.1 ??C) (Temporal) BP Readings from Last 3 Encounters: 10/11/23 118/72 07/29/23 133/63 04/13/23 138/82 Pulse Readings from Last 3 Encounters: 10/11/23 82 07/29/23 81 04/13/23 66 Physical Exam Vitals and nursing note reviewed. [...] EC 81 MG Tablet Delayed Response ??? atorvastatin (LIPITOR) 20 MG Tablet ??? buPROPion (WELLBUTRIN) 100 MG Tablet ??? furosemide (LASIX) 20 MG Tablet ??? ibuprofen (MOTRIN) 800 MG Tablet ??? LORazepam (ATIVAN) 0.5 MG Tablet ??? Magnesium Gluconate 550 MG Tablet ??? metoprolol Succinate (TOPROL-XL) 50 MG TABLET SR 24 HR ??? naproxen (NAPROSYN) 500 MG Tablet ??? traZODone (DESYREL) 50 MG Tablet I educated Mervat regarding diagnoses and plan of care. She verbalizes understanding and will callthe office if situation changes. Voice recognition software was utilized in this dictation. Despite proof reading, typographical errors and/or content errors may have occurred. By: Wali Pak MD 10/11/2023 8:35 AM WILDLIFE ECOLOGIST LIFE ECOLOGIST documented in this encounter Plan of Treatment Upcoming Encounters Date Type Department Care Team (Late st Contact Info) Description 02/05/2025 8:00 AM CDT Office Visit [facility] - Internal Medicine - [place] [address] [place] [id number] Wali Pka MD [address] [place] [address] documented as of this encounter Results * MAGNESIUM (MG) (10/22/2023 9:52 AM WILDLIFE ECOLOGIST) MAGNESIUM 2.0 1.6 - 2.6 mg/dL 10/22/2023 10:22 AM WILDLIFE ECOLOGIST [facility] Blood Venipuncture / Unknown 10/22/2023 9:52 AM WILDLIFE ECOLOGIST 10/22/2023 9:58 AM WILDLIFE ECOLOGIST us Wali Pak MD CHEMISTRY ORDERABLES Final Result [facility] [place] [address] * THYROID STIMULATING HORMONE (TSH) (10/22/2023 9:52 AM WILDLIFE ECOLOGIST) TSH 2.543 0.300 - 5.000 mIU/L 10/22/2023 10:39 AM WILDLIFE ECOLOGIST [facility] Blood Venipuncture / Unknown 10/22/2023 9:52 AM WILDLIFE ECOLOGIST 10/22/2023 9:58 AM WILDLIFE ECOLOGIST us Wali Pak MD CHEMISTRY ORDERABLES Final Result Performing Organization Address City/[facility]/ZIP Co de Phone Number [facility] [place] [address] * THYROXINE (T4) FREE (10/22/2023 9:52 AM WILDLIFE ECOLOGIST) T4 FREE 0.9 0.7 - 1.9 ng/dL 10/22/2023 10:39 AM WILDLIFE ECOLOGIST [facility] Blood Venipuncture / Unknown 10/22/2023 9:52 AM WILDLIFE ECOLOGIST 10/22/2023 9:58 AM WILDLIFE ECOLOGIST us Wali Pak MD CHEMISTRY ORDERABLES Final Result [facility] [place] [address] * HEMOGLOBIN A1C W/ ESTIMATED GLUCOSE (10/22/2023 9:52 AM WILDLIFE ECOLOGIST) HGB-A1C 5.6 4.0 - 6.0 % 10/22/2023 10:18 AM [facility] Est Average Glucose 114.0 mg/dL 10/22/2023 10:18 AM [facility] Blood Venipuncture / Unknown 10/22/2023 9:52 AM WILDLIFE ECOLOGIST 10/22/2023 9:58 AM WILDLIFE ECOLOGIST Narrative [facility] - 10/22/2023 10:18 AM WILDLIFE ECOLOGIST HEMOGLOBIN A1C: DIABETIC PATIENTS: WELL-CONTROLLED: ?? 6.2 - 7.0 INTERMEDIATE WELL-CONTROLLED: ??7.0 - 9.0 POORLY-CONTROLLED: ??>9.0 us Wali Pak MD CHEMISTRY ORDERABLES Final Result [facility] [address] [place] [address] * (ABNORMAL) LIPID PANEL (10/22/2023 9:52 AM WILDLIFE ECOLOGIST) CHOLESTEROL 214(H) <200 mg/dL 10/22/2023 10:22 AM [facility] TRIGLYCERIDES 116 <150 mg/dL 10/22/2023 10:22 AM [facility] HDL CHOLESTEROL 45 >40 mg/dL 10:22 AM [facility] LDL 146(H) <130 mg/dL 10/22/2023 10:22 AM [facility] VLDL 23 10 - 50 mg/dL 10/22/2023 10:22 AM [facility] CHOL/HDL RATIO 4.8(H) 0.0 - 4.4 10/22/2023 10:22 AM [facility] NON-HDL CHOLESTEROL 169(H) <130 mg/dL 10/22/2023 10:22 AM [facility] Blood Venipuncture / Unknown 10/22/2023 9:52 AM WILDLIFE ECOLOGIST 10/22/2023 9:58 AM WILDLIFE ECOLOGIST us Wali Pak MD CHEMISTRY ORDERABLES Final Result [facility] [address] [place] [address] * (ABNORMAL) CMP (COMPREHENSIVE METABOLIC PANEL) (10/22/2023 9:52 AM WILDLIFE ECOLOGIST) SODIUM 138 136 - 145 mmol/L 10/22/2023 10:22 AM [facility] POTASSIUM 4.3 3.5 - 5.1 mmol/L 10/22/2023 10:22 AM [facility] CHLORIDE 106 98 - 107 mmol/L 10/22/2023 10:22 AM [facility] CO2, VENOUS 25 22 - 30 mmol/L 10/22/2023 10:22 AM [facility] ANION GAP 11.3 <18.0 mmol/L 10/22/2023 10:22 AM [facility] GLUCOSE 114(H) 70 - 99 mg/dL 10/22/2023 10:22 AM [facility] BUN 17 10 - 20 mg/dL 10/22/2023 10:22 AM [facility] CREATININE, BLOOD 0.73 0.60 - 1.00 mg/dL 10/22/2023 10:22 AM [facility] BUN/CREATININE RATIO 23(H) 12 - 20 ratio 10/22/2023 10:22 AM [facility] TOTAL PROTEIN 7.2 6.3 - 8.2 g/dL 10/22/2023 10:22 AM [facility] ALBUMIN 4.0 3.5 - 5.0 g/dL 10/22/2023 10:22 AM [facility] A/G RATIO 1.3 1.0 - 2.2 10/22/2023 10:22 AM [facility] CALCIUM 9.3 8.7 - 10.5 mg/dL 10/22/2023 10:22 AM WILDLIFE ECOLOGIST [facility] T BILI 0.9 0.2 - 1.2 mg/dL 10/22/2023 10:22 AM [facility] SGOT (AST) 16 5 - 34 U/L 10/22/2023 10:22 AM [facility] SGPT (ALT) 22 0 - 55 U/L 10/22/2023 10:22 AM [facility] ALKALINE PHOSPHATASE 87 40 - 150 U/L 10/22/2023 10:22 AM [facility] IS THE PATIENT REQUIRED TO BE FASTING? No 10/22/2023 10:22 AM [facility] GFR, ESTIMATED >60 >=60 10/22/2023 10:22 AM [facility] Comment: Creatinine Clearance is the preferred criteria for selecting drug dose adjustments in renally impaired patients. ??The GFR is provided as additional pertinent clinical information. GFR is reported in mL/min/1.73 sq m. Calculation based on the Chronic Kidney Disease Epidemiology Collaboration (CKD- EPI) equation refit without adjustment for race. GFR, EST. >60 >=60 023 10:22 AM [facility] GFR, EST. NONAFRICAN >60 >=60 10/22/2023 10:22 AM [facility] Blood Venipuncture / Unknown 10/22/2023 9:52 AM WILDLIFE ECOLOGIST 10/22/2023 9:58 AM WILDLIFE ECOLOGIST us Wali Pak MD CHEMISTRY ORDERABLES Final Result [facility] [place] [address] documented in this encounter Visit Diagnoses Diagnosis Type 2 diabetes mellitus without complication, without long-term current use of insulin (HCC)- Primary Generalized anxiety disorder Essential hypertension, benign Other hyperlipidemia Other specified hypothyroidism Hypomagnesemia Disorders of magnesium metabolism documented in this encounter Additional Health Concerns Assessment Noted Time PHQ-9 Depression Total Score: 0 10/11/20 23 8:20 AM WILDLIFE ECOLOGIST documented as of this encounter Care Teams Polymer Chemist Relationship Specialty Start Date End Date Wali Pak MD [address] [place] [address] PCP - General Internal Medicine 12/30/15 documented as of this encounter
--- OUTSIDE RECORDS SUMMARY | 2024-10-13 16:08 | XMS_ITS | Encounter Summary ---
Author Organization [facility] Address [address] [place] [address] Phone Care Team Providers Care Residential Subcontractor Name Role Phone Wali Pak MD Primary Care Provider [phone] Reason for Referral * Radiology Services (Routine) - Closed Specialty Diagnoses / Procedures Referred By Contac t Referred To Contact Radiology Diagnoses Breast cancer screening by mammogram Procedures YECENIA SCREENING BILATERAL DIGITAL W CAD W SHY YECENIA SCREENING BILATERAL DIGITAL W CAD Wali Pak MD [address] [place] [address] Phone: tel: fax: Referral ID Status Reason Start Date Expiration Date Visits Re quested Visits Authorized [id number] Closed 07/02/2021 1 1 * Consult, Test & Initiate Treatment (Routine) - Canceled Specialty Diagnoses / Procedures Referred By Contact Referred To Contact Gastroenterology Diagnoses Screening for colorectal cancer Wali Pak MD [address] [facility] [place] [address] Phone: tel: fax: [facility] - Gastroenterology - [address] [place] [address] Phone: tel: fax: Referral ID Status Reason Start Date Expiration Date V isits Requested Visits Authorized [id number] Canceled 07/02/2021 1 1 Scheduling Instructions Mervat is being referred for screening colonoscopy Please contact patient for scheduling questions or concerns. Reason for Visit * Reason Comments High Blood Pressure f/u Medication Refill Encounter Details Date Type Department Care Team (Late st Contact Info) Description 07/02/2021 11:00 AM CDT Office Visit [facility] - Internal Medicine - [place] [address] [place] [phone] Wali Pak MD [address] [address] Essential hypertension, benign (Primary Dx); Breast cancer screening by mammogram; Screening for colorectal cancer; Generalized anxiety disorder Discharge Disposition: Discharged to home or Selfcare Social History Tobacco Use Types Packs/Day Years Used Date Smoking Tobacco: Former Cigarettes 0.3 3 Smokeless Tobacco: Never Comments:social Alcohol Use Standard Drinks/Week Comments Yes 0 (1 standard drink = 0.6 oz pur e alcohol) social PHQ-2 Answer Date Recorded Total Score - Questions 1-9 0 11/25 Sexually Active Control Partners Comments Not Currently [...] Exposure Response Date Recorded In the last month, have you been in contact with someone who was confirmed or suspected to have Coronavirus / COVID-19? No / Unsure 07/02/2021 10:59 AM CDT documented as of this encounter Last Filed Vital Signs Vital Sign Reading Time Taken Comments Blood Pressure 136/78 07/02/2021 11:14 AM CDT Pulse 82 07/02/2021 11:14 AM CDT Temperature 36.6 ??C (97.9 ??F) 07/02/2021 11:14 AM C DT Respiratory Rate - - Oxygen Saturation 96% 07/02/2021 11:14 AM CDT Inhaled Oxygen Concentration - - Weight 110.2 kg (243 lb) 07/02/2021 11:14 AM CDT Height 167.6 cm (5' 6 ) 07/02/2021 11:14 AM CDT Body Mass Index 39.22 07/02/2021 11:14 AM CDT documented in this encounter Progress Notes * Dayana Chapa, JOYCELYN - 07/02/2021 11:00 AM CDT Mervat Terrence Haro, 55 y.o., female is here for High Blood Pressure (f/u) and Medication Refill Medication Refills: Patient reports/denies need for medication refills. Orders Pended: yes Requested Prescriptions Pending Prescriptions Disp Refills ??? metoprolol Succinate (TOPROL-XL) 50 MG TABLET SR 24 HR 14 Tablet 0 Sig: Take 1 Tablet by mouth daily. Home Medications Medication Sig Start Date End Date Taking? Authorizing Provider aspirin 325 MG Tablet Take 325 mg by mouth. Yes Provider, MD Denice buPROPion (WELLBUTRIN) 100 MG Tablet TAKE 1 TABLET BY MOUTH TWICE A DAY 05/29/21 Yes Jewell Pak MD dtmoqhsmav-eslderwxiqyxj-lzbrjgmg (FIORICET, ESGIC) 50-325-40 MG Tablet Take 1 Tab by mouth every 6hours as needed for Headaches. 08/06/20 Yes Wali Pak MD furosemide (LASIX) 20 MG Tablet TAKE 1 TABLET BY MOUTH DAILY NEEDED (SWELLING). 06/02/21 Yes Wali Pak MD LORazepam (ATIVAN) 0.5 MG Tablet TAKE ONE TABLET BY MOUTH ONCE DAILY NEEDED FOR ANXIETY 09/05/20Yes Wali Pak MD metoprolol Succinate (TOPROL-XL) 50 MG TABLET SR 24 HR Take 1 Tablet by mouth daily. 06/16/21 Yes Wali Pka MD predniSONE (DELTASONE) 20 MG Tablet Take 1 Tablet by mouth daily. Patient not taking: Reported on 07/02/2021 06/16/21 Wali Pak MD rOPINIRole (REQUIP) 0.25 MG Tablet TAKE 1 TABLET BY MOUTH EVERY DAY AT NIGHT 03/11/21 Yes Wali Pak MD There are no discontinued medications. I have reviewed the home medication list with the patient and have reconciled discrepancies. The list is accurate to the best of my knowledge. Smoking Status: Social History Tobacco Use ??? Smoking status: Former Smoker Packs/day: 0.25 Years: 3.00 Pack years: 0.75 Types: Cigarettes ??? Smokeless tobacco: Never Used ??? Tobacco comment: social Vaping Use ??? Vaping Use: Never used Substance Use Topics ??? Alcohol use: Yes Comment: social ??? Drug use: No Smoking Cessation Counseling Given: no Health Care Maintenance: Health Maintenance Due Topic Date Due ??? Pneumococcal Immunization (0-64 years) (1 of 2 - PPSV23) Never done ??? DTaP/Tdap/Td Immunization (1 - Tdap) Never done ??? SARS-COV-2 Immunization (1) Never done ??? Pap Smear Never done ??? Zoster Immunization (1 of 2) Never done ??? Colorectal Cancer Screening Never done ??? Mammogram 12/10/2013 ??? Influenza Immunization (1) Never done Orders Pended: no The following BPA's have been addressed with the patient today: Smoking * Wali Pak MD - 07/02/2021 11:00 AM CDT PROGRESS NOTE [facility] - INTERNAL MEDICINE [address] [place] [address] PHONE: [phone] FAX: [phone] 07/02/2021 NAME: Mervat Haro, : 1965, Assessment ASSESSMENT & PLAN: Return in about 3 months (around 10/01/2021) for htn. Diagnoses and all orders for this visit: Essential hypertension, benign Comments: Stable. Continue current medication Orders: - CMP (COMPREHENSIVE METABOLIC PANEL); Future - LIPID PANEL; Future Breast cancer screening by mammogram Comments: Set up for mammogram Orders: - YECENIA SCREENING BILATERAL DIGITAL W CAD; Future Screening for colorectal cancer Comments: Set up for screening colonoscopy Orders: - GASTROENTEROLOGY REFERRAL; Future Generalized anxiety disorder Comments: Stable. Continue current medication Other orders - metoprolol Succinate (TOPROL-XL) 50 MG TABLET SR 24 HR; Take 1 Tablet by mouth daily. - Cancel: COLOGUARD - buPROPion (WELLBUTRIN) 100 MG Tablet; Take 1 Tablet by mouth daily. Check CMP, lipid profile. Follow-up in 3 months, sooner if needed Chief Complaint Patient presents with ??? High Blood Pressure f/u ??? Medication Refill HPI Patient is here for follow-up for hypertension other medical problems. Patient is feeling well. No chest pain or palpitation. Anxiety is much better since she quit daycare. Taking Wellbutrin only once a day. Tolerating medications well. ROS Review of systems was negative, except as documented in HPI PHYSICAL EXAM VITALS: Wt Readings from Last 3 Encounters: 07/02/21 243 lb (110.2 kg) 12/13/20 242 lb (109.8 kg) 11/14/18 215 lb (97.5 kg) Temp Readings from Last 3 Encounters: 07/02/21 97.9 ??F (36.6 ??C) (Temporal) 12/13/20 97 ??F (36.1 ??C) (Temporal) 11/14/18 97.5 ??F (36.4 ??C) (Tympanic) BP Readings from Last 3 Encounters: 07/02/21 136/78 12/13/20 130/72 11/14/18 155/90 Pulse Readings from Last 3 Encounters: 07/02/21 82 12/13/20 66 11/14/18 82 Physical Exam Vitals and nursing note reviewed. Constitutional: Appearance: Normal appearance. HENT: Head: Normocephalic. Mouth/Throat: Mouth: Mucous membranes are moist. Pharynx: Oropharynx is clear. Eyes: Extraocular Movements: Extraocular movements intact. Conjunctiva/sclera: [...] and Affect: Mood normal. Behavior: Behavior normal. Pedal pulses normal. Past medical, surgical, social and family history has been reviewed and updated as necessary. Medications and allergies has been reviewed and updated. Allergies Allergen Reactions ??? Latex Rash When wears latex herself ??? Penicillins Rash As a child / has had penicillin since then with no problems Current Outpatient Medications: ??? aspirin 325 MG Tablet ??? buPROPion (WELLBUTRIN) 100 MG Tablet ??? ibqpftvzcg-eypiyfqymohjj-qssyregl (FIORICET, ESGIC) 50-325-40 MG Tablet ??? furosemide (LASIX) 20 MG Tablet ??? LORazepam (ATIVAN) 0.5 MG Tablet ??? metoprolol Succinate (TOPROL-XL) 50 MG TABLET SR 24 HR ??? rOPINIRole (REQUIP) 0.25 MG Tablet I educated Mervat regarding diagnoses and plan of care. She verbalizes understanding and will callthe office if situation changes. Voice recognition software was utilized in this dictation. Despite proof reading, typographical errors and/or content errors may have occurred. By: Wali Pak MD 07/02/2021 11:54 AM CDT documented in this encounter Plan of Treatment Upcoming Encounters Date Type Department Care Team (Late st Contact Info) Description 02/05/2025 8:00 AM CDT [facility] - Internal Medicine - [place] [address] [place] [phone] Wali Pak MD [address] [place] [address] Scheduled Referrals Name Type Priority Associated Diagnoses Order Schedule GASTROENTEROLOGY REFERRAL Outpatient Referral Routine Screening for colorectal cancer Expected: 07/02/2021, Expires: 07/02/2022 documented as of this encounter Results * YECENIA SCREENING BILATERAL DIGITAL W CAD W SHY (07/14/2021 7:40 AM CDT) Anatomical Region Laterality Modality breast Bilateral Mammography 07/14/2021 7:40 AM CDT Narrative 07/18/2021 3:03 PM CDT - YECENIA SCREENING BILATERAL DIGITAL W CAD W SHY BILATERAL DIGITAL SCREENING MAMMOGRAM 3D/2D WITH CAD WITH MEDIOLATERAL OBLIQUE CRANIOCAUDAL: 07/14/2021 The study was acquired using digital technology and interpreted from soft copy. Current study was also evaluated with mobifriendsD version 7.2. 2D digital mammographic views, as well as 3D digital tomosynthesis were performed in the CC and MLO projections. ?? CLINICAL: Routine screening. Patient has no complaints. No personal history of cancer. No family history of breast cancer. ?? COMPARISONS: Comparison is made to exams dated: ??10/04/2014, 09/22/2014, and 12/09/2011 [facility]. ?? BREAST TISSUE:There are scattered fibroglandular densities in both breasts. ?? FINDINGS: No significant masses, calcifications, or other findings are seen in either breast. ?? There has been no significant interval change. IMPRESSION: BI-RAD 1 NEGATIVE There is no mammographic evidence of malignancy. A 1 year screening mammogram is recommended. ?? The patient has been or will be contacted. ?? The patient will be entered into a reminder system with a target due date of 1 year for her next screening exam. Electronically signed by: Rosa Newton M.D. ? ll/penrad:07/18/2021 14:21:52 ?? Injection Molding Machine Tender(s): Ines ?? RT Jose Juan(Marie)(M), [facility] letter sent: Normal Exam ?? Reading location: [facility] BI-RADS: 1 Negative Procedure Note Rosa Newton MD - 07/18/2021 - YECENIA SCREENING BILATERAL DIGITAL W CAD W SHY BILATERAL DIGITAL SCREENING MAMMOGRAM 3D/2D WITH CAD WITH MEDIOLATERAL OBLIQUE CRANIOCAUDAL: 07/14/2021 The study was acquired using digital technology [...] COMPARISONS: Comparison is made to exams dated: 10/04/2014, 09/22/2014, and 12/09/2011 [facility]. BREAST TISSUE:There are scattered fibroglandular densities in both breasts. FINDINGS: No significant masses, calcifications, or other findings are seen in either breast. There has been no significant interval change. IMPRESSION: BI-RAD 1 NEGATIVE There is no mammographic evidence of malignancy. A 1 year screening mammogram is recommended. The patient has been or will be contacted. The patient will be entered into a reminder system with a target due date of 1 year for her next screening exam. Electronically signed by: Rosa henriquez/jimmy:07/18/2021 14:21:52 Injection Molding Machine Tender(s): RT Phi(R)(M), [facility] letter sent: Normal Exam Reading location: [facility] BI-RADS: 1 Negative us Wali Pak MD IMG MAMMO ORDERABLES Final Result * (ABNORMAL) LIPID PANEL (07/14/2021 7:10 AM CDT) CHOLESTEROL 202(H) <=200 mg/dL 07/14/2021 7:58 AM CDT [facility] TRIGLYCERIDES 135 <150 mg/dL 07/14/2021 7:58 AM CDT [facility] HDL CHOLESTEROL 43.4 >40 mg/dL 7:58 AM CDT [facility] LDL 132(H) 5 - 130 mg/dL 07/14/2021 7:58 AM CDT [facility] VLDL 27 5 - 55 mg/dL 07/14/2021 7:58 AM CDT [facility] CHOL/HDL RATIO 4.7(H) 0.0 - 4.4 07/14/2021 7:58 AM CDT [facility] NON-HDL CHOLESTEROL 158.6(H) <130 mg/dL 07/14/2021 7:58 AM CDT [facility] Blood Venipuncture / Unknown 07/14/2021 7:10 AM CDT 07/14/2021 7:29 AM CDT Wali Pak MD CHEMISTRY ORDERABLES Final Result [facility] [address] [place] [address] * (ABNORMAL) CMP (COMPREHENSIVE METABOLIC PANEL) (07/14/2021 7:10 AM CDT) SODIUM 141 136 - 144 mmol/L 07/14/2021 7:58 AM CDT [facility] POTASSIUM 4.0 3.5 - 5.1 mmol/L 07/14/2021 7:58 AM CDT [facility] CHLORIDE 107 100 - 110 mmol/L 07/14/2021 7:58 AM CDT [facility] CO2, VENOUS 25 22 - 32 mmol/L 07/14/2021 7:58 AM CDT [facility] ANION GAP 13.0 8.0 - 20.0 mmol/L 07/14/2021 7:58 AM CDT [facility] GLUCOSE 119(H) 70 - 99 mg/dL 07/14/2021 7:58 AM CDT [facility] BUN 11 6 - 20 mg/dL 07/14/2021 7:58 AM CDT [facility] CREATININE, BLOOD 0.59(L) 0.60 - 1.10 mg/dL 07/14/2021 7:58 AM CDT [facility] BUN/CREATININE RATIO 19 12 - 20 ratio 07/14/2021 7:58 AM CDT [facility] TOTAL PROTEIN 6.9 6.0 - 8.3 g/dL 07/14/2021 7:58 AM CDT [facility] ALBUMIN 4.2 3.5 - 5.2 g/dL 07/14/2021 7:58 AM CDT [facility] Comment: The colormetric methods used for the determination of Albumin may lead to falsely elevated test results in patients suffering from renal failure or insufficiency due to interference with other proteins. A/G RATIO 1.6 1.0 - 2.0 07/14/2021 7:58 AM CDT [facility] CALCIUM 9.2 8.9 - 10.3 mg/dL 07/14/2021 7:58 AM CDT [facility] T BILI 0.3 <=1.2 mg/dL 07/14/2021 7:58 AM CDT [facility] SGOT (AST) 17 <=32 U/L 07/14/2021 7:58 AM CDT [facility] SGPT (ALT) 25 <=41 U/L 07/14/2021 7:58 AM CDT [facility] ALKALINE PHOSPHATASE 88 35 - 105 U/L 07/14/2021 7:58 AM CDT [facility] GFR, EST. NONAFRICAN >60 >=60 07/14/2021 7:58 AM CDT [facility] GFR, EST. >60 >=60 021 7:58 AM CDT [facility] Comment: Creatinine Clearance is the preferred criteria for selecting drug dose adjustments in renally impaired patients. ??The GFR is provided as additional pertinent clinical information. GFR is reported in mL/min/1.73 sq m. IS THE PATIENT REQUIRED TO BE FASTING? No 07/14/2021 7:58 AM CDT [facility] Blood Venipuncture / Unknown 07/14/2021 7:10 AM CDT 07/14/2021 7:29 AM CDT us Wali Pak MD CHEMISTRY ORDERABLES Final Result [facility] [address] [facility] [place] [address] documented in this encounter Visit Diagnoses Diagnosis Essential hypertension, benign- Primary Breast cancer screening by mammogram Screening for colorectal cancer Special screening for malignant neoplasms, colon Generalized anxiety disorder Breast cancer screening by mammogram documented in this encounter Additional Health Concerns Assessment Noted Time PHQ-9 Depression Total Score: 0 12/13/19 21 9:00 AM 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
--- OUTSIDE RECORDS SUMMARY | 2024-10-13 16:08 | XMS_ITS | Encounter Summary ---
Author Organization [facility] Address [address] [facility] [facility] [address] Phone Care Team Providers Care Fiberglass Insulation Installer Name Role Phone Wali Pak MD Primary Care Provider Reason for Visit * Reason Onset Date Comments COVID-19 06/09/2022 Encounter Details Date Type Department Care Team (Late st Contact Info) Description 06/09/2022 Nurse Triage [facility] [address] [place] [address] Wali Pak MD [address] [place] [address] COVID-19 Social History Tobacco Use Types Packs/Day Years [...] suspected to have Coronavirus/COVID-19? No / Unsure 07/07/2022 7:38 AM CDT documented as of this encounter Miscellaneous Notes * Telephone Encounter - Erick Clancy RN - 06/09/2022 7:35 AM CDT SITUATION: Covid symptoms ?? BACKGROUND: Hypertension ?? ASSESSMENT: Date of onset of symptoms: 06/08 Date of positive home test: Has not taken a test Symptom Description / Location: Scratchy throat. Intermittent congested cough. Right sided ear pain. Shortness of breath with activity, no complaints of shortness of breath at rest. Headache and bodyaches. Denies chest pain. Denies nasal drainage. Pain (0-10): 7 Temp: chills Treatment / Response: tylenol some relief ?? RECOMMENDATION: See care advice and disposition for Guideline To discuss with provider and call back within one hour. Patient requesting a COVID test ordered. Symptomatic treatment education given. Directed caller on symptoms to monitor and when to call back Reason for Disposition ? ? MILD difficulty breathing (e.g., minimal/no SOB at rest, SOB with walking, pulse <100) Protocols used: CORONAVIRUS (COVID-19) DIAGNOSED OR [id number] documented in this encounter Plan of Treatment Upcoming Encounters Date Type Department Care Team (Late st Contact Info) Description 02/05/2025 8:00 AM CDT Office Visit [facility] - Internal Medicine - [place] [address] [place] [phone] Wali Pak MD [address] [place] [address] documented as of this encounter Visit Diagnoses Not on filedocumented in this encounter Additional Health Concerns Assessment Noted Time PHQ-9 Depression Total Score: 3 01/20/20 22 9:00 AM CDT documented as of this encounter Care Teams Fiberglass Insulation Installer Relationship Specialty Start Date End Date Wali Pak MD [address] [place] [address] PCP - General Internal Medicine 12/30/15 documented as of this encounter
--- OUTSIDE RECORDS SUMMARY | 2024-10-13 16:08 | XMS_ITS | Encounter Summary ---
Author Organization [facility] Address [address] [facility] [place] [address] Phone Care Team Providers Care Communications Professor Name Role Phone Wali Pak MD Primary Care Provider Reason for Visit * Reason Comments Medication Refill Encounter Details Date Type Department Care Team (Late st Contact Info) Description 06/30/2022 Refill [facility] Admitting [address] [place] [phone] Wali Pak MD [address] [place] [address] Medication Refill Social History Tobacco Use Types [...] encounter Miscellaneous Notes * Telephone Encounter - Fernanda Devine RN - 06/30/2022 7:20 AM CDT Medication failed the protocol, provider to review and approve the medication order if appropriate. Requested Prescriptions Pending Prescriptions Disp Refills buPROPion (WELLBUTRIN) 100 MG Tablet [Pharmacy Med Name: BUPROPION HCL 100 MG TABLET] 30 Tablet 0 Sig: TAKE 1/2 TABLET BY MOUTH TWO TIMES A DAY There is no refill protocol information for this order documented in this encounter Plan of Treatment Upcoming Encounters Date Type Department Care Team (Late st Contact Info) Description 02/05/2025 8:00 AM CDT Office Visit [facility] - Internal Medicine [place] [address] [place] [address] Wali Pak MD [address] [place] [address] documented as of this encounter Visit Diagnoses Not on filedocumented in this encounter Additional Health Concerns Assessment Noted Time PHQ-9 Depression Total Score: 3 01/20/20 22 9:00 AM CDT documented as of this encounter Care Teams Communications Professor Relationship Specialty Start Date End Date Wali Pak MD [address] [place] [address] PCP - General Internal Medicine 12/30/15 documented as of this encounter
--- OUTSIDE RECORDS SUMMARY | 2024-10-13 16:08 | XMS_ITS | Encounter Summary ---
Author Organization [facility] Address [address] [facility] [place] [address] Phone Care Team Providers Care Director Business Integration Name Role Phone Wali Pak MD Primary Care Provider Reason for Visit * Reason Comments Medication Refill Encounter Details Date Type Department Care Team (Late st Contact Info) Description 09/21/2021 Refill [facility] - [place] [address] [place] [address] Wali Pak MD [address] [facility] [place] [address] Medication Refill Social History Tobacco [...] Telephone Encounter - Fernanda Devine RN - 09/22/2021 7:51 AM CST Medication(s) [facility] Medication Refill Standing Order for Pediatricand Adult Patients. Requested Prescriptions Pending Prescriptions Disp Refills ??? metoprolol Succinate (TOPROL-XL) 50 MG TABLET SR 24 HR [Pharmacy Med Name: METOPROLOL SUCC ER 50 MG TAB] 30 Tablet 2 Sig: TAKE 1 TABLET BY MOUTH EVERY DAY Beta-Blockers Protocol Passed - 09/21/2021 7:29 AM Passed - BP on record in the past year Clinician-entered: BP Readings from Last 3 Encounters: 07/02/21 136/78 12/13/20 130/72 11/14/18 155/90 Patient-entered: No data recorded Passed - Visit with relevant provider in past 12 months or upcoming 90 days Recent Visits Date Type Provider Dept 07/02/21 Office Visit Wali Pak MD [facility] [place] 12/13/20 Office Visit Wali Pak MD [facility] [place] 10/07/20 Telemedicine Wali Pak MD [facility] [place] 09/23/20 [facility]medicine [facility] [place] Show[facility] recent visits within past 365 days and meeting all other requirements Future Appointments Date Type Provider Dept 10/06/21 Appointment Wali Pka MD [facility] [place] Showing future appointments within next 90 days and meeting all other requirements TER APPLICATOR documented in this encounter Plan of Treatment Upcoming Encounters Date Type Department Care Team (Late st Contact Info) Description 02/05/2025 8:00 AM CDT Office Visit [facility] - Internal Medicine - [place] [address] [place] [phone] Wali Pak MD [address] [place] [address] documented as of this encounter Visit Diagnoses Not on filedocumented in this encounter Additional Health Concerns Assessment Noted Time PHQ-9 Depression Total Score: 0 12/13/19 21 9:00 AM 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
--- OUTSIDE RECORDS SUMMARY | 2024-10-13 16:08 | XMS_ITS | Encounter Summary ---
Author Organization [facility] Address [address] [facility] [place] [address] Phone Care Team Providers Care Communication Studies Professor Name Role Phone Wali Pak MD Primary Care Provider Reason for Visit * Reason Comments high A1c 1 mo f/u Encounter Details Date Type Department Care Team (Late st Contact Info) Description 08/10/2022 10:15 AM CDT Office Visit [facility] [address] [place] [address] Wali Pak MD [address] [facility] [place] [address] Type 2 diabetes mellitus without complication, without long-term current use of insulin (HCC) (Primary Dx) Discharge Disposition: Discharged to home or Selfcare [...] suspected to have Coronavirus/COVID-19? No / Unsure 08/10/2022 9:58 AM CDT documented as of this encounter Last Filed Vital Signs Vital Sign Reading Time Taken Comments Blood Pressure 118/70 08/10/2022 10:15 AM CDT Pulse 72 08/10/2022 10:15 AM CDT Temperature 36.5 ??C (97.7 ??F) 08/10/2022 10:15 AM C DT Respiratory Rate - - Oxygen Saturation 97% 08/10/2022 10:15 AM CDT Inhaled Oxygen Concentration - - Weight 110.2 kg (243 lb) 08/10/2022 10:15 AM CDT Height 167.6 cm (5' 6 ) 08/10/2022 10:15 AM CDT Body Mass Index 39.22 08/10/2022 10:15 AM CDT documented in this encounter Progress Notes * Dayana Chapa, EDGE SAWYER - 08/10/2022 10:15 AM CDT Mervat Haro, 57 y.o., female is here for high A1c (1 mo f/u) Medication Refills: Patient reports/denies need for medication refills. Orders Pended: no Requested Prescriptions No prescriptions requested or ordered in this encounter Home Medications Medication Sig Start Date End Date Taking? Authorizing Provider aspirin EC 81 MG Tablet Delayed Response Take 81 mg by mouth daily. Yes Provider, MD Denice buPROPion (WELLBUTRIN) 100 MG Tablet TAKE 1/2 TABLET BY MOUTH TWO TIMES A DAY 06/30/22 Yes Wali Pak MD rbvcwojhyl-bmxjqtwbikowf-yzqufocl (FIORICET, ESGIC) 50-325-40 MG Tablet Take 1 Tab by mouth every 6hours as needed for Headaches. 08/06/20 Yes Wali Pak MD furosemide (LASIX) 20 MG Tablet Take 1 Tablet by mouth Daily as needed (Swelling). 07/07/22 Yes Wali Pak MD LORazepam (ATIVAN) 0.5 MG Tablet Take 1 Tablet by mouth daily as needed for Anxiety. 07/07/22 Yes Wali Pak MD metFORMIN (GLUCOPHAGE) 500 MG Tablet Take 1 Tablet by mouth 2 times daily (with meals). 07/09/22 Wali Hickey MD metoprolol Succinate (TOPROL-XL) 50 MG TABLET SR 24 HR TAKE 1 TABLET BY MOUTH EVERY DAY 12/31/21 Yes Wali Pak MD rOPINIRole (REQUIP) 0.25 MG Tablet Take 1 Tablet by mouth nightly. 07/07/22 Yes Wali Pak MD There are no [...] 3 - 3-dose series) Never done ??? DTaP/Tdap/Td Immunization (1 - Tdap) Never done ??? Zoster Immunization (1 of 2) Never done ??? SARS-COV-2 Immunization (2 - Booster for Namrata series) 02/21/2021 Orders Pended: no The following BPA's have been addressed with the patient today: Smoking * Wali Pak MD - 08/10/2022 10:15 AM CDT PROGRESS NOTE [facility] [place] [address] PHONE: [phone] FAX: [phone] 08/10/2022 NAME: Mervat Haor, : 1965, Assessment ASSESSMENT & PLAN: Return in about 2 months (around 10/10/2022) for diabetes. Diagnoses and all orders for this visit: Type 2 diabetes mellitus without complication, without long-term current use of insulin ([facility]) Comments: Continue metformin and low carb diet. Follow-up in 2 months, sooner if needed Chief Complaint Patient presents with ??? high A1c 1 mo f/u HPI Patient is here for follow-up for diabetes. FBS stays around 130. Tolerating metformin well. No episode of hypoglycemia. ROS Review of systems was negative, except as documented in HPI PHYSICAL EXAM VITALS: Wt Readings from Last 3 Encounters: 08/10/22 243 lb (110.2 kg) 07/07/22 245 lb (111.1 kg) 01/19/22 243 lb (110.2 kg) Temp Readings from Last 3 Encounters: 08/10/22 97.7 ??F (36.5 ??C) (Temporal) 07/07/22 97.8 ??F (36.6 ??C) (Temporal) 01/19/22 97.9 ??F (36.6 ??C) (Temporal) BP Readings from Last 3 Encounters: 08/10/22 118/70 07/07/22 122/74 01/19/22 116/68 Pulse Readings from Last 3 Encounters: 08/10/22 72 07/07/22 70 01/19/22 78 Physical Exam Vitals and nursing note reviewed. [...] no problems Current Outpatient Medications: ??? aspirin EC 81 MG Tablet Delayed Response ??? buPROPion (WELLBUTRIN) 100 MG Tablet ??? imljjyqlgr-fweatgnyxasfm-dsbahdtc (FIORICET, ESGIC) 50-325-40 MG Tablet ??? furosemide (LASIX) 20 MG Tablet ??? LORazepam (ATIVAN) 0.5 MG Tablet ??? metFORMIN (GLUCOPHAGE) 500 MG Tablet ??? metoprolol Succinate (TOPROL-XL) 50 MG TABLET SR 24 HR ??? rOPINIRole (REQUIP) 0.25 MG Tablet I educated Mervat regarding diagnoses and plan of care. She verbalizes understanding and will callthe office if situation changes. Voice recognition software was utilized in this dictation. Despite proof reading, typographical errors and/or content errors may have occurred. By: Wali Pak MD 08/10/2022 10:32 AM CDT documented in this encounter Plan of Treatment Upcoming Encounters Date Type Department Care Team (Late st Contact Info) Description 02/05/2025 8:00 AM CDT Office Visit [facility] - Internal Medicine - [place] [address] [place] [address] Wali Pak MD [address] [place] [address] documented as of this encounter Visit Diagnoses Diagnosis Type 2 diabetes mellitus without complication, without long-term current use of insulin (HCC)- Primary documented in this encounter Additional Health Concerns Assessment Noted Time PHQ-9 Depression Total Score: 3 01/20/20 22 9:00 AM CDT documented as of this encounter Care Teams Communication Studies Professor Relationship Specialty Start Date End Date Wali Pak MD [address] [place] [address] PCP - General Internal Medicine 12/30/15 documented as of this encounter
--- OUTSIDE RECORDS SUMMARY | 2024-10-13 16:08 | XMS_ITS | Encounter Summary ---
Author Organization [facility] [employer] Care Team Providers Care Electrical Mechanic Name Role Phone Wali Pak MD Primary Care Provider [phone] Encounter Details Date Type Department Care Team (Latest Contact Info) Description 01/20/2022 Travel Social History Tobacco Use Types Packs/Day [...] suspected to have Coronavirus/COVID-19? No / Unsure 01/20/2022 7:24 AM CDT documented as of this encounter Plan of Treatment Upcoming Encounters Date Type Department Care Team (Late st Contact Info) Description 02/05/2025 8:00 AM CDT Office Visit [facility] - Internal Medicine - [place] [address] [place] [address] Wali Pak MD [address] [place] [address] documented as of this encounter Visit Diagnoses Not on filedocumented in this encounter Additional Health Concerns Assessment Noted Time PHQ-9 Depression Total Score: 3 01/20/20 22 9:00 AM CDT documented as of this encounter Care Teams Electrical Mechanic Relationship Specialty Start Date End Date Wali Pak MD [address] [place] [address] PCP - General Internal Medicine 12/30/15 documented as of this encounter
--- OUTSIDE RECORDS SUMMARY | 2024-10-13 16:08 | XMS_ITS | Encounter Summary ---
Author Organization [facility] [employer] Care Team Providers Care Patient Care Name Role Phone Wali Pak MD Primary Care Provider Encounter Details Date Type Department Care Team (Latest Contact Info) Description 07/14/2021 Travel Social History Tobacco Use Types Packs/Day [...] have Coronavirus / COVID-19? No / Unsure 07/14/2021 6:43 AM CDT documented as of this encounter Plan of Treatment Upcoming Encounters Date Type Department Care Team (Late st Contact Info) Description 02/05/2025 8:00 AM CDT Office Visit [facility] - Internal Medicine - [place] [address] [place] [address] Wali Pak MD [address] [facility] [place] [address] documented as of this encounter Visit Diagnoses Not on filedocumented in this encounter Additional Health Concerns Assessment Noted Time PHQ-9 Depression Total Score: 0 12/13/19 21 9:00 AM MACHINE LEAD BURNER documented as of this encounter Care Teams Patient Care Relationship Specialty Start Date End Date Wali Pak MD [address] [place] [address] PCP - General Internal Medicine 12/30/15 documented as of this encounter
--- OUTSIDE RECORDS SUMMARY | 2024-10-13 16:08 | XMS_ITS | Encounter Summary ---
Author Organization [facility] Address [address] [facility] [place] [place] [address] Phone Care Team Providers Care Supervisor Tunnel Heading Name Role Phone Wali Pak MD Primary Care Provider Reason for Visit * Reason Comments Medication Refill Encounter Details Date Type Department Care Team (Late st Contact Info) Description 06/03/2022 Refill [facility] Admitting [address] [place] [phone] Wali Pak MD [address] [place] [address] Medication Refill Social History Tobacco Use Types [...] Telephone Encounter - Fernanda Devine RN - 06/03/2022 8:28 AM CDT Medication failed the protocol, provider to review and approve the medication order if appropriate. Requested Prescriptions Pending Prescriptions Disp Refills buPROPion (WELLBUTRIN) 100 MG Tablet [Pharmacy Med Name: BUPROPION HCL 100 MG TABLET] 30 Tablet 1 Sig: TAKE 1/2 TABLET BY MOUTH TWO TIMES A DAY There is no refill protocol information for this order documented in this encounter Plan of Treatment Upcoming Encounters Date Type Department Care Team (Late st Contact Info) Description 02/05/2025 8:00 AM CDT Office Visit [facility] - Internal Medicine [place] [address] [place] [address] Wali Pak MD [address] [place] [address] documented as of this encounter Visit Diagnoses Not on filedocumented in this encounter Additional Health Concerns Assessment Noted Time PHQ-9 Depression Total Score: 3 01/20/20 22 9:00 AM CDT documented as of this encounter Care Teams Supervisor Tunnel Heading Relationship Specialty Start Date End Date Wali Pak MD [address] [place] [address] PCP - General Internal Medicine 12/30/15 documented as of this encounter
--- OUTSIDE RECORDS SUMMARY | 2024-10-13 16:08 | XMS_ITS | Encounter Summary ---
Author Organization [facility] [employer] Care Team Providers Care Basket Operator Name Role Phone Wali Pak MD Primary Care Provider Encounter Details Date Type Department Care Team (Latest Contact Info) Description 01/19/2022 Travel Social History Tobacco Use Types Packs/Day [...] suspected to have Coronavirus/COVID-19? No / Unsure 01/19/2022 9:10 AM CDT documented as of this encounter Plan of Treatment Upcoming Encounters Date Type Department Care Team (Late st Contact Info) Description 02/05/2025 8:00 AM CDT Office Visit [facility] - Internal Medicine - [place] [address] [place] [address] Wali Pak MD [address] [place] [address] documented as of this encounter Visit Diagnoses Not on filedocumented in this encounter Additional Health Concerns Assessment Noted Time PHQ-9 Depression Total Score: 3 01/20/20 22 9:00 AM CDT documented as of this encounter Care Teams Basket Operator Relationship Specialty Start Date End Date Wali Pak MD [address] [place] [address] PCP - General Internal Medicine 12/30/15 documented as of this encounter
--- OUTSIDE RECORDS SUMMARY | 2024-10-13 16:08 | XMS_ITS | Encounter Summary ---
Author Organization [facility] Address [address] [facility] [place] [address] Phone Care Team Providers Care Anthropologist Name Role Phone Wali Pak MD Primary Care Provider Encounter Details Date Type Department Care Team (Late st Contact Info) Description 10/31/2021 9:30 AM CELERY WRAPPER Lab [facility] - Internal Medicine - [place] [address] [place] [address] [facility] (Primary Dx); Runny nose Discharge Disposition: Discharged to home or Selfcare [...] have Coronavirus / COVID-19? No / Unsure 10/31/2021 9:12 AM CELERY WRAPPER documented as of this encounter Progress Notes * Norma Stratton RMA - 10/31/2021 9:30 AM CST POCT Covid-19 swab was collected today 10/31/2021 per order of Tereza Lujan . Patient tolerated well. Results come back positive. Results were printed and given to provider for review. RY WRAPPER documented in this encounter Plan of Treatment Upcoming Encounters Date Type Department Care Team (Late st Contact Info) Description 02/05/2025 8:00 AM CDT Office Visit [facility] - Internal Medicine [facility] [address] [place] [address] Wali Pak MD [address] [facility] [place] [address] Pending Results Name Type Priority Associated Diagnoses Date /Time POCT SARS ANTIGEN PB Point of Care Testing (manual) Routine Cough Runny nose 10/31/2021 9:00 AM CELERY WRAPPER documented as of this encounter Procedures Procedure Name Priority Date/Time Associated Diagnosis Comments POCT SARS ANTIGEN PB Routine 10/31/2021 9:00 AM CELERY WRAPPER Cough Runny nose documented in this encounter Visit Diagnoses Diagnosis Cough- Primary Runny nose Other diseases of nasal cavity and sinuses documented in this encounter Additional Health Concerns Assessment Noted Time PHQ-9 Depression Total Score: 0 12/13/19 21 9:00 AM CELERY WRAPPER documented as of this encounter Care Teams Anthropologist Relationship Specialty Start Date End Date Wali Pak MD [address] [place] [address] PCP - General Internal Medicine 12/30/15 documented as of this encounter
--- OUTSIDE RECORDS SUMMARY | 2024-10-13 16:08 | XMS_ITS | Encounter Summary ---
Author Organization [facility] [employer] Care Team Providers Care Psych Sales Specialist Name Role Phone Wali Pak MD Primary Care Provider [phone] Encounter Details Date Type Department Care Team (Latest Contact Info) Description 10/15/2021 Travel Social History Tobacco Use Types Packs/Day [...] have Coronavirus / COVID-19? No / Unsure 10/15/2021 3:13 PM LOGGING RAFTER LABORER documented as of this encounter Plan of Treatment Upcoming Encounters Date Type Department Care Team (Late st Contact Info) Description 02/05/2025 8:00 AM CDT Office Visit [facility] Medical Group - Internal Medicine - [place] [address] [place] [address] Wali Pak MD [address] [place] [address] documented as of this encounter Visit Diagnoses Not on filedocumented in this encounter Additional Health Concerns Assessment Noted Time PHQ-9 Depression Total Score: 0 12/13/19 21 9:00 AM LOGGING RAFTER LABORER documented as of this encounter Care Teams Psych Sales Specialist Relationship Specialty Start Date End Date Wali Pak MD [address] [place] [address] PCP - General Internal Medicine 12/30/15 documented as of this encounter
--- OUTSIDE RECORDS SUMMARY | 2024-10-13 16:08 | XMS_ITS | Encounter Summary ---
Author Organization [facility] Address [address] [facility] [place] [address] Phone Care Team Providers Care Precision Mechanical Instrument Maker Name Role Phone Wali Pak MD Primary Care Provider Reason for Visit * Reason Onset Date Comments Medication Refill 12/14/2022 Encounter Details Date Type Department Care Team (Late st Contact Info) Description 12/14/2022 Refill [facility] - Internal Medicine [facility] [address] [place] [address] Wali Pak MD [address] [place] [address] Medication Refill Social History Tobacco [...] suspected to have Coronavirus/COVID-19? No / Unsure 11/30/2022 2:52 PM DIRECTOR SALES SUPPORT documented as of this encounter Miscellaneous Notes * Telephone Encounter - Enedelia Damon RN - 12/14/2022 1:28 PM CST [facility] Med[facility] Refill Standing Order for Pediatricand Adult Patients. Requested Prescriptions Pending Prescriptions Disp Refills ??? buPROPion (WELLBUTRIN) 100 MG Tablet 30 Tablet 0 Sig: TAKE 1/2 TABLET BY MOUTH TWO TIMES A DAY Bupropion (6 Month Refill Only) Protocol Passed - 12/14/2022 12:55 PM Passed - Visit with relevant provider in past 6 months or upcoming 90 days Recent Visits Date Type Provider Dept 08/10/22 Office Visit Wali Pak MD [facility] [place] 07/07/22 Office Visit Wali Pak MD [facility] Showing recent visits within past 182 days and meeting all other requirements Future Appointments No visits were found meeting these conditions. Showing future appointments within next 90 days and meeting all other requirements Passed - Has an encounter in the past 6 months with a depression or anxiety visit diagnosis Passed - Patient has established therapy with Bupropion for at least 6 months CTOR SALES SUPPORT * Telephone Encounter - Payton Burns - 12/14/2022 12:22 PM CST Med rf Medication - Wellbutrin Phone - [phone] Pharmacy - [facility] [place] CTOR SALES SUPPORT documented in this encounter Plan of Treatment Upcoming Encounters Date Type Department Care Team (Late st Contact Info) Description 02/05/2025 8:00 AM CDT Office Visit [facility] - Internal Medicine - [place] [address] [place] [address] Wali Pak MD [address] [place] [address] documented as of this encounter Visit Diagnoses Not on filedocumented in this encounter Additional Health Concerns Assessment Noted Time PHQ-9 Depression Total Score: 3 01/20/20 22 9:00 AM CDT documented as of this encounter Care Teams Precision Mechanical Instrument Maker Relationship Specialty Start Date End Date Wali Pak MD [address] [place] [address] PCP - General Internal Medicine 12/30/15 documented as of this encounter
--- OUTSIDE RECORDS SUMMARY | 2024-10-13 16:08 | XMS_ITS | Encounter Summary ---
Author Organization [facility] Address [address] [facility] [address] [facility] [facility] [place] [address] Phone Care Team Providers Care Hardboard Press Operator Name Role Phone Wali Pak MD Primary Care Provider [phone] Encounter Details Date Type Department Care Team (Latest Contact Info) Description 07/17/2021 9:10 AM CDT - 07/17/2021 11:59 PM CDT [facility] [address] [place] [address] Discharge Disposition: Discharged to home or Selfcare [...] encounter Medications at Time of Discharge aspirin 325 MG Tablet Take 325 mg by mouth. 01/19/2022 buPROPion (WELLBUTRIN) 100 MG Tablet Take 100 mg by mouth. 12/28/2019 06/30/2023 buPROPion (WELLBUTRIN) 100 MG Tablet Take 1 Tablet by mouth daily. 30 Tablet 2 07/02/2021 11/03/2021 butalbital-acetam inophen-caffeine (FIORICET, ESGIC) 50-325-40 MG Tablet Take 1 Tab by mouth every 6 hours as needed for Headaches. 15 Tab 1 08/06/2020 07/29/2023 furosemide (LASIX) 20 MG Tablet TAKE 1 TABLET BY MOUTH DAILY NEEDED (SWELLING). 90 Tablet 06/02/2021 08/25/2021 LORazepam (ATIVAN) 0.5 MG Tablet Take 0.5 mg by mouth. 02/05/2020 10/11/2023 LORazepam (ATIVAN) 0.5 MG Tablet TAKE ONE TABLET BY MOUTH ONCE DAILY NEEDED FOR ANXIETY 10 Tab 09/05/2020 10/15/2021 metoprolol Succinate (TOPROL-XL) 50 MG TABLET SR 24 HR Take 1 Tablet by mouth daily. 30 Tablet 2 07/02/2021 09/22/2021 rOPINIRole (REQUIP) 0.25 MG Tablet TAKE 1 TABLET BY MOUTH EVERY DAY AT NIGHT 30 Tablet 03/11/2021 07/07/2022 temazepam (RESTORIL) 15 MG Capsule Take 15 mg by mouth. 12/27/2020 01/19/2022 documented as of this encounter Plan of Treatment Upcoming Encounters Date Type Department Care Team (Late st Contact Info) Description 02/05/2025 8:00 AM CDT [facility] - Internal [facility] - [place] [address] [place] [address] Wali Pak MD [address] [place] [address] documented as of this encounter Procedures Procedure Name Priority Date/Time Associated Diagnosis Comments YECENIA REFERENCE IMAGES FOR IMAGE IMPORT Routine 07/17/2021 8:57 AM CDT YECENIA REFERENCE IMAGES FOR IMAGE IMPORT Routine 07/17/2021 8:56 AM CDT YECENIA REFERENCE IMAGES FOR IMAGE IMPORT Routine 07/17/2021 8:55 AM CDT documented in this encounter Results * YECENIA REFERENCE IMAGES FOR IMAGE IMPORT (07/17/2021 8:57 AM CDT) Only the most recent of3 resultswithin the time period is included. us Not On File Provider IMG MAMMO ORDERABLES Final Result documented in this encounter Visit Diagnoses Not on filedocumented in this encounter Additional Health Concerns Assessment Noted Time PHQ-9 Depression Total Score: 0 12/13/19 21 9:00 AM PRORATE CLERK documented as of this encounter Care Teams Hardboard Press Operator Relationship Specialty Start Date End Date Wali Pak MD [address] [place] [address] PCP - General Internal Medicine 12/30/15 documented as of this encounter
--- OUTSIDE RECORDS SUMMARY | 2024-10-13 16:08 | XMS_ITS | Encounter Summary ---
Author Organization [facility] Address [address] [place] [place] [address] Phone Care Team Providers Care Administrative Services Director Name Role Phone Wali Pak MD Primary Care Provider Encounter Details Date Type Department Care Team (Late st Contact Info) Description 05/18/2022 Telephone [facility] [address] [place] [address] Wali Pak MD [address] [place] [address] Social History Tobacco Use Types Packs/Day Years [...] encounter Miscellaneous Notes * Telephone Encounter - Crystal Maradiaga RN - 05/18/2022 6:49 AM CDT Patient calling in to cancel her 7 am appointment. Patient will call at a later time to reschedule. Appointment cancelled. documented in this encounter Plan of Treatment Upcoming Encounters Date Type Department Care Team (Late st Contact Info) Description 02/05/2025 8:00 AM CDT Office Visit [facility] - Internal Medicine [place] [address] [place] [address] Wali Pak MD [address] [place] [address] documented as of this encounter Visit Diagnoses Not on filedocumented in this encounter Additional Health Concerns Assessment Noted Time PHQ-9 Depression Total Score: 3 01/20/20 22 9:00 AM CDT documented as of this encounter Care Teams Administrative Services Director Relationship Specialty Start Date End Date Wali Pak MD [address] [place] [address] PCP - General Internal Medicine 12/30/15 documented as of this encounter
--- OUTSIDE RECORDS SUMMARY | 2024-10-13 16:08 | XMS_ITS | Encounter Summary ---
Author Organization [facility] Address [address] [facility] [place] [address] Phone Care Team Providers Care Game Tester Name Role Phone Wali Pak MD Primary Care Provider Reason for Visit * Reason Onset Date Comments Results 07/09/2022 Encounter Details Date Type Department Care Team (Late st Contact Info) Description 07/09/2022 Telephone [facility] [address] [place] [address] Wali Pak MD [address] [place] [address] Results Social History Tobacco Use [...] Telephone Encounter - Fernanda Devine RN - 07/09/2022 3:04 PM CDT Phoned patient with lab results and recommendations. Patient aware and verbalized understanding. * Telephone Encounter - Fernanda Devine RN - 07/09/2022 7:17 AM CDT ----- Message from Wali Pak MD sent at 07/09/2022 7:11 AM CDT ----- Cmp- okay Lipids elevated- needs to be on low chol. Diet RA factor- negative- no Rhem arthritis ERMELINDA - negative.- no lupus Uric acid- nl range- no gout HbA1c- 9.0 significantly elevated. Need to start metformin 500mg bid, low carb diet, monitor bl sugra at home. FU in 1 moth documented in this encounter Plan of Treatment Upcoming Encounters Date Type Department Care Team (Late st Contact Info) Description 02/05/2025 8:00 AM CDT Office Visit [facility] - [place] [address] [place] [phone] Wali Pak MD [address] [place] [address] documented as of this encounter Visit Diagnoses Not on filedocumented in this encounter Additional Health Concerns Assessment Noted Time PHQ-9 Depression Total Score: 3 01/20/20 22 9:00 AM CDT documented as of this encounter Care Teams Game Tester Relationship Specialty Start Date End Date Wali Pak MD [address] [place] [address] PCP - General Internal Medicine 12/30/15 documented as of this encounter
--- OUTSIDE RECORDS SUMMARY | 2024-10-13 16:08 | XMS_ITS | Encounter Summary ---
Author Organization [facility] Address [address] [facility] [place] [address] Phone Care Team Providers Care Mold Laminator Name Role Phone Wali Pak MD Primary Care Provider Reason for Visit * Reason Onset Date Comments Leg Pain 01/17/2022 Foot Swelling 01/17/2022 Encounter Details Date Type Department Care Team (Late st Contact Info) Description 01/17/2022 Nurse Triage [facility] [address] [place] [address] Provider, None [place] Leg Pain; Foot Swelling Social History Tobacco Use Types Packs/Day Years Used Date Smoking Tobacco: Never Assessed PHQ-2 Answer Date Recorded Total Score - Questions 1-9 0 11/25 Comments No Sex and Gender Information Value Date Recorded Sex Assigned at Not on file Legal Sex Female 8:43 PM CDT Gender Identity Not on file Sexual Orientation Not on file documented as of this encounter Miscellaneous Notes * Telephone Encounter - Aniya Ladd, RN - 01/17/2022 2:39 PM CDT SITUATION (caller perception/concerns): Patient calling asking for pain medicine for her legs BACKGROUND (events leading up to call): Patient states the last 2 days at work have been very difficult, she has been on her feet all day, she states her legs are overworked ASSESSMENT: Onset: Last 2 days Symptoms: Swelling and pain in bilateral feet, ankles and calves Denies redness or warmth Denies injury Denies open sores Pain: 8/10 Temp (route, time): Denies fevers Treatment with response: Tylenol, not helping RECOMMENDATION: See provider within 3 days. Patient would like to have something called in without having to be seen, if provider is agreeable. She would like a call back on Wednesday01/19/22 with provider recommendations. Advised patient to call back if symptoms worsen or go to urgent care. See care advice and disposition for guideline. First positive answer recorded, all responses to prior questions were negative. If symptoms increase, change or if new symptoms develop, call your HCP or call back. Recommendation based on caller information and is not a diagnosis. Verified and reviewed all triage information with caller. Caller verbalized understanding of information given and denies further questions. Teach-back method utilized. Reason for Disposition ??? [1] Leg pain which occurs after walking a certain distance AND [2] disappears with rest AND [3]age > 50 Protocols used: LEG PAIN-A-AH documented in this encounter Plan of Treatment Upcoming Encounters Date Type Department Care Team (Late st Contact Info) Description 02/05/2025 8:00 AM CDT Office Visit [facility] - Internal Medicine [facility] [address] [place] [address] Wali Pak MD [address] [place] [address] documented as of this encounter Visit Diagnoses Not on filedocumented in this encounter Additional Health Concerns Assessment Noted Time PHQ-9 Depression Total Score: 0 12/13/19 21 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
--- OUTSIDE RECORDS SUMMARY | 2024-10-13 16:08 | XMS_ITS | Encounter Summary ---
Author Organization [facility] Address [address] [facility] [place] [address] Phone Care Team Providers Care Small Products Ii Assembler Name Role Phone Wali Pak MD Primary Care Provider Encounter Details Date Type Department Care Team (Late st Contact Info) Description 07/14/2021 Telephone [facility] - [place] [address] [place] [address] Wali Pak MD [address] [facility] [place] [address] Social History Tobacco Use Types [...] Telephone Encounter - Fernanda Devine RN - 07/25/2021 3:41 PM CDT Phoned patient with lab results and provider's recommendations. Patient aware and verbalized understanding. * Telephone Encounter - Fernanda Devine RN - 07/14/2021 9:14 AM CDT ----- Message from Wali Pak MD sent at 07/14/2021 8:37 AM CDT ----- Lipids and Bl. Sugar are elevated. Needs to be on Low carb. Low chol. Diet. Rpt labs in 3 months documented in this encounter Plan of Treatment Upcoming Encounters Date Type Department Care Team (Late st Contact Info) Description 02/05/2025 8:00 AM CDT Office Visit [facility] [address] [place] [address] Wali Pak MD [address] [place] [address] Scheduled Orders Name Type Priority Associated Diagnoses Orde r Schedule LIPID PANEL Lab Routine Essential hypertension, benign Expected: 10/25/2021, Expires: 11/25/2021 CMP (COMPREHENSIVE METABOLIC PANEL) Lab Routine Essential hypertension, benign Expected: 10/25/2021, Expires: 11/25/2021 documented as of this encounter Visit Diagnoses Diagnosis Essential hypertension, benign- Primary documented in this encounter Additional Health Concerns Assessment Noted Time PHQ-9 Depression Total Score: 0 12/13/19 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
--- OUTSIDE RECORDS SUMMARY | 2024-10-13 16:08 | XMS_ITS | Encounter Summary ---
Author Organization [facility] Address [address] [facility] [place] [address] Phone Care Team Providers Care Collection Development Librarian Name Role Phone Wali Pak MD Primary Care Provider [phone] Reason for Visit * Reason Comments Anxiety 3 mo f/u Leg Pain Both legs Encounter Details Date Type Department Care Team (Late st Contact Info) Description 01/19/2022 9:15 AM CDT Office Visit [facility] - Internal Medicine [facility] [address] [place] [address] Wali Pak MD [address] [facility] [place] [address] Essential hypertension, benign (Primary Dx); Other specified hypothyroidism; Other hyperlipidemia; Muscle pain; Hyperglycemia; Bilateral lower extremity edema; Generalized anxiety disorder; Restless leg syndrome Discharge Disposition: Discharged to home or Selfcare [...] Sign Reading Time Taken Comments Blood Pressure 116/68 01/19/2022 9:20 AM CDT Pulse 78 01/19/2022 9:20 AM CDT Temperature 36.6 ??C (97.9 ??F) 01/19/2022 9:20 AM CD T Respiratory Rate - - Oxygen Saturation 98% 01/19/2022 9:20 AM CDT Inhaled Oxygen Concentration - - Weight 110.2 kg (243 lb) 01/19/2022 9:20 AM CDT Height 167.6 cm (5' 6 ) 01/19/2022 9:20 AM CDT Body Mass Index 39.22 01/19/2022 9:20 AM CDT documented in this encounter Progress Notes * Dayana Chapa, JOYCELYN - 01/19/2022 9:15 AM CDT Mervat Terrence Haro, 56 y.o., female is here for Anxiety (3 mo f/u) and Leg Pain (Both legs) Medication Refills: Patient reports/denies need for medication refills. Orders Pended: no Requested Prescriptions No prescriptions requested or ordered in this encounter Home Medications Medication Sig Start Date End Date Taking? Authorizing Provider aspirin 325 MG Tablet Take 325 mg by mouth. Patient not taking: Reported on 01/19/2022 ProviderDenice MD aspirin EC 81 MG Tablet Delayed Response Take 81 mg by mouth daily. Yes Denice Watts MD buPROPion (WELLBUTRIN) 100 MG Tablet TAKE 1/2 TABLET BY MOUTH TWO TIMES A DAY 11/03/21 Yes Wali Pak MD fowtrkdpya-uyrkxtkprgpkq-ewxzcanv (FIORICET, ESGIC) 50-325-40 MG Tablet Take 1 Tab by mouth every 6hours as needed for Headaches. 10/13/20 Yes Wali Pak MD furosemide (LASIX) 20 MG Tablet TAKE 1 TABLET BY MOUTH DAILY NEEDED (SWELLING). 08/25/21 Yes Wali Pak MD LORazepam (ATIVAN) 0.5 MG Tablet Take 1 Tablet by mouth daily as needed for Anxiety. 10/15/21 Yes Wali Pak MD metoprolol Succinate (TOPROL-XL) 50 MG TABLET SR 24 HR TAKE 1 TABLET BY MOUTH EVERY DAY 12/31/21 Yes Wali Pak MD rOPINIRole (REQUIP) 0.25 MG Tablet TAKE 1 TABLET BY MOUTH EVERY DAY AT NIGHT 03/11/21 Yes Wali Pak MD temazepam (RESTORIL) 15 MG Capsule Take 15 mg by mouth. Patient not taking: Reported on 01/19/2022 12/27/20 Provider, MD Denice There are no discontinued medications. I have [...] Health Maintenance Due Topic Date Due ??? SARS-COV-2 Immunization (1) Never done ??? DTaP/Tdap/Td Immunization (1 - Tdap) Never done ??? Pap Smear Never done ??? Zoster Immunization (1 of 2) Never done ??? Influenza Immunization (1) Never done ??? Colorectal Cancer Screening 10/23/2021 Orders Pended: no The following BPA's have been addressed with the patient today: Smoking and Depression * Wali Pak MD - 01/19/2022 9:15 AM CDT PROGRESS NOTE [facility] [address] [place] [address] PHONE: [phone] FAX: [phone] 01/19/2022 NAME: Mervat Haro, : 1965, Assessment ASSESSMENT & PLAN: Return in about 3 months (around 04/21/2022) for htn. Diagnoses and all orders for this visit: Essential hypertension, benign Comments: Stable. Continue current medication Orders: - CMP (COMPREHENSIVE METABOLIC PANEL); Future - LIPID PANEL; Future Other specified hypothyroidism Comments: Check T4 TSH Orders: - THYROXINE (T4) FREE; Future - THYROID STIMULATING HORMONE (TSH); Future Other hyperlipidemia Comments: Low-cholesterol diet advised Orders: - CMP (COMPREHENSIVE METABOLIC PANEL); Future - LIPID PANEL; Future Muscle pain Comments: Check vitamin-D, vitamin B12 level. Orders: - VITAMIN B12; Future - VITAMIN D, 25 HYDROXY TOTAL; Future - MAGNESIUM (MG); Future Hyperglycemia Comments: Check HbA1c. Low carb diet Orders: - HEMOGLOBIN A1C W/ ESTIMATED GLUCOSE; Future Bilateral lower extremity edema Comments: Continue p.r.n. furosemide Generalized anxiety disorder Comments: Stable. Continue current medication Restless leg syndrome Comments: Stable. Continue current medication Other orders - aspirin EC 81 MG Tablet Delayed Response; Take 81 mg by mouth daily. Further treatment depends upon lab results Chief Complaint Patient presents with ??? Anxiety 3 mo f/u ??? Leg Pain Both legs HPI Patient is here for follow-up for hypertension other medical problems. Anxiety has been stable. Complains of severe muscle pain in legs at the end of the day after working. Legs feel weak at times. No chest pain or palpitation.. Legs feel tight. ROS Review of systems was negative, except as documented in HPI PHYSICAL EXAM VITALS: Wt Readings from Last 3 Encounters: 01/19/22 243 lb (110.2 kg) 10/15/21 240 lb (108.9 kg) 07/02/21 243 lb (110.2 kg) Temp Readings from Last 3 Encounters: 01/19/22 97.9 ??F (36.6 ??C) (Temporal) 10/15/21 97.5 ??F (36.4 ??C) (Temporal) 07/02/21 97.9 ??F (36.6 ??C) (Temporal) BP Readings from Last 3 Encounters: 01/19/22 116/68 10/15/21 124/72 07/02/21 136/78 Pulse Readings from Last 3 Encounters: 01/19/22 78 10/15/21 76 07/02/21 82 Physical Exam Vitals and nursing note reviewed. Constitutional: Appearance: Normal appearance. She is obese. HENT: Head: Normocephalic. Mouth/Throat: Mouth: Mucous membranes [...] and Affect: Mood normal. Behavior: Behavior normal. No calf tenderness present. Varicose veins both lower extremities present. No peripheral edema. Pedal pulses normal. Past medical, surgical, social [...] ??? buPROPion (WELLBUTRIN) 100 MG Tablet ??? gmifmtcwgd-gadamevfsxluh-xshkxnoc (FIORICET, ESGIC) 50-325-40 MG Tablet ??? furosemide [...] may have occurred. By: Wali Pak MD 01/19/2022 10:11 AM CDT documented in this encounter Plan of Treatment Upcoming Encounters Date Type Department Care Team (Late st Contact Info) Description 02/05/2025 8:00 AM CDT [facility] Visit [facility] - [place] [address] [place] [phone] Wali Pak MD [address] [facility] [place] [address] documented as of this encounter Results * MAGNESIUM (MG) (01/20/2022 7:35 AM CDT) MAGNESIUM 2.1 1.8 - 2.5 mg/dL 01/20/2022 3:46 PM CDT [facility] Blood Venipuncture / Unknown 01/20/2022 7:35 AM CDT 01/20/2022 7:35 AM CDT Wali Pak MD CHEMISTRY ORDERABLES Final Result [facility] [place] [address] * (ABNORMAL) VITAMIN D, 25 HYDROXY TOTAL (01/20/2022 7:35 AM CDT) VITAMIN D, 25 HYDROX 22(L) >=30 ng/mL 01/20/2022 3:57 PM CDT [facility] Blood Venipuncture / Unknown 01/20/2022 7:35 AM CDT 01/20/2022 7:35 AM CDT Narrative [facility] - 01/20/2022 3:57 PM CDT Published reference ranges for Vitamin D vary depending on time and place and method of testing, and on patient's age, sex, ethnicity and levels of other measured analytes such as parathormone, calcium and phosphorus. ??The result should be evaluated in conjunction with clinical findings and suspicions. [place] [employer] and [employer] Clinical Practice Guidelines: Status Vitamin D levels (ng/mL) Deficient <=20 At risk of inadequacy 21-29 Sufficient 30-100 Centers of Disease Control and Prevention Guidelines: Status Vitamin D levels (ng/mL) Deficient <13 At risk of inadequacy 13-19 Sufficient 20-50 Possibly harmful >50 References: [place] [employer], 2010 Dietary reference intakes for calcium and vitamin D. [place]: ??The National Academies Press. Duane M, Susy N, Ashu RODRÍGUEZ, et al., Evaluation, treatment, and prevention of Vitamin D deficiency: an Endocrinology Clinical Practice Guideline. JCEM 2011 96: 7 0537-7640. Hilary A, Tripp C, Reilly D, et al., Vitamin D Status: ??[place], 2000- 6, [facility] data brief, no. 59, MD [place]: ??National Center for Health Statistics. 2010. Wali Pak MD CHEMISTRY ORDERABLES Final Result [facility] [place] [address] * VITAMIN B12 (01/20/2022 7:35 AM CDT) VITAMIN B12 553 243 - 894 pg/mL 01/20/2022 3:57 PM CDT [facility] Blood Venipuncture / Unknown 01/20/2022 7:35 AM CDT 01/20/2022 7:35 AM CDT Wali Pak MD CHEMISTRY ORDERABLES Final Result Performing Organization Address City/[facility]/ZIP Co de Phone Number [facility] [place] [address] * THYROID STIMULATING HORMONE (TSH) (01/20/2022 7:35 AM CDT) TSH 2.820 0.270 - 4.200 mIU/L 01/20/2022 3:46 PM CDT [facility] Blood Venipuncture / Unknown 01/20/2022 7:35 AM CDT 01/20/2022 7:35 AM CDT Wali Pak MD CHEMISTRY ORDERABLES Final Result [facility] [place] [address] * THYROXINE (T4) FREE (01/20/2022 7:35 AM CDT) Pathologist [facility] T4 FREE 1.1 0.9 - 1.7 ng/dL 01/20/2022 3:46 PM CDT [facility] Blood Venipuncture / Unknown 01/20/2022 7:35 AM CDT 01/20/2022 7:35 AM CDT Wali Pak MD CHEMISTRY ORDERABLES Final Result [facility] [place] [address] * HEMOGLOBIN A1C W/ ESTIMATED GLUCOSE (01/20/2022 7:35 AM CDT) Pathologist [facility] HGB-A1C 5.9 4.0 - 6.0 % 01/20/2022 3:47 PM CDT [facility] Est Average Glucose 122.6 mg/dL 01/20/2022 3:47 PM CDT [facility] Blood Venipuncture / Unknown 01/20/2022 7:35 AM CDT 01/20/2022 7:35 AM CDT Narrative [facility] - 01/20/2022 3:47 PM CDT HEMOGLOBIN A1C: DIABETIC PATIENTS: WELL-CONTROLLED: ?? 6.2 - 7.0 INTERMEDIATE WELL-CONTROLLED: ??7.0 - 9.0 POORLY-CONTROLLED: ??>9.0 Wali Pak MD CHEMISTRY ORDERABLES Final Result Performing Organization Address City/[facility]/ZIP Co de Phone Number [facility] [place] [address] * (ABNORMAL) LIPID PANEL (01/20/2022 7:35 AM CDT) CHOLESTEROL 199 <=200 mg/dL 01/20/2022 3:46 PM CDT [facility] TRIGLYCERIDES 103 <150 mg/dL 01/20/2022 3:46 PM CDT [facility] HDL CHOLESTEROL 44.4 >40 mg/dL 3:46 PM CDT [facility] LDL 134(H) 5 - 130 mg/dL 01/20/2022 3:46 PM CDT [facility] VLDL 21 5 - 55 mg/dL 01/20/2022 3:46 PM CDT [facility] CHOL/HDL RATIO 4.5(H) 0.0 - 4.4 01/20/2022 3:46 PM CDT [facility] NON-HDL CHOLESTEROL 154.6(H) <130 mg/dL 01/20/2022 3:46 PM CDT [facility] Blood Venipuncture / Unknown 01/20/2022 7:35 AM CDT 01/20/2022 7:35 AM CDT us Wali Pak MD CHEMISTRY ORDERABLES Final Result Performing Organization Address [facility]/ZIP Co de Phone Number [facility] [place] [address] * (ABNORMAL) CMP (COMPREHENSIVE METABOLIC PANEL) (01/20/2022 7:35 AM CDT) SODIUM 139 136 - 144 mmol/L 01/20/2022 3:46 PM CDT [facility] POTASSIUM 4.2 3.5 - 5.1 mmol/L 01/20/2022 3:46 PM CDT [facility] CHLORIDE 104 100 - 110 mmol/L 01/20/2022 3:46 PM CDT [facility] CO2, VENOUS 26 22 - 32 mmol/L 01/20/2022 3:46 PM CDT [facility] ANION GAP 13.2 8.0 - 20.0 mmol/L 01/20/2022 3:46 PM T [facility] GLUCOSE 103(H) 70 - 99 mg/dL 01/20/2022 3:46 PM CDT [facility] BUN 15 6 - 20 mg/dL 01/20/2022 3:46 PM T [facility] CREATININE, BLOOD 0.72 0.60 - 1.10 mg/dL 01/20/2022 3:46 PM T [facility] BUN/CREATININE RATIO 21(H) 12 - 20 ratio 01/20/2022 3:46 PM [facility] TOTAL PROTEIN 7.2 6.0 - 8.3 g/dL 01/20/2022 3:46 PM T [facility] ALBUMIN 4.5 3.5 - 5.2 g/dL 01/20/2022 3:46 PM [facility] Comment: The colormetric methods used for the determination of Albumin may lead to falsely elevated test results in patients suffering from renal failure or insufficiency due to interference with other proteins. A/G RATIO 1.7 1.0 - 2.0 01/20/2022 3:46 PM T [facility] CALCIUM 9.6 8.9 - 10.3 mg/dL 01/20/2022 3:46 PM T [facility] T BILI 0.7 <=1.2 mg/dL 01/20/2022 3:46 PM T [facility] SGOT (AST) 16 <=32 U/L 01/20/2022 3:46 PM CDT [facility] SGPT (ALT) 22 <=41 U/L 01/20/2022 3:46 PM CDT [facility] ALKALINE PHOSPHATASE 78 35 - 105 U/L 01/20/2022 3:46 PM CDT [facility] GFR, EST. NONAFRICAN >60 >=60 01/20/2022 3:46 PM CDT [facility] GFR, EST. >60 >=60 022 3:46 PM CDT [facility] Comment: Creatinine Clearance is the preferred criteria for selecting drug dose adjustments in renally impaired patients. ??The GFR is provided as additional pertinent clinical information. GFR is reported in mL/min/1.73 sq m. IS THE PATIENT REQUIRED TO BE FASTING? No 01/20/2022 3:46 PM CDT [facility] Blood Venipuncture / Unknown 01/20/2022 7:35 AM CDT 01/20/2022 7:35 AM CDT us Wali Pak MD CHEMISTRY ORDERABLES Final Result [facility] [place] [address] documented in this encounter Visit Diagnoses Diagnosis Essential hypertension, benign- Primary Other specified hypothyroidism Other hyperlipidemia Muscle pain Mylagia and myositis, unspecified Hyperglycemia Other abnormal glucose Bilateral lower extremity edema Edema Generalized anxiety disorder Restless leg syndrome Restless legs syndrome (RLS) documented in this encounter Additional Health Concerns Assessment Noted Time PHQ-9 Depression Total Score: 3 01/20/20 22 9:00 AM CDT documented as of this encounter Care Teams Collection Development Librarian Relationship Specialty Start Date End Date Wali Pak MD [address] [place] [address] PCP - General Internal Medicine 12/30/15 documented as of this encounter
--- OUTSIDE RECORDS SUMMARY | 2024-10-13 16:08 | XMS_ITS | Encounter Summary ---
Author Organization [facility] [employer] Care Team Providers Care Electrical Development Engineer Name Role Phone Wali Pak MD Primary Care Provider [phone] Encounter Details Date Type Department Care Team (Latest Contact Info) Description 07/02/2021 Travel Social History Tobacco Use Types Packs/Day [...] Description 02/05/2025 8:00 AM CDT Office Visit [facility] - Internal Medicine - [place] [address] [place] [address] Wali Pak MD [address] [facility] [place] [address] documented as of this encounter Visit Diagnoses Not on filedocumented in this encounter Additional Health Concerns Assessment Noted Time PHQ-9 Depression Total Score: 0 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
--- OUTSIDE RECORDS SUMMARY | 2024-10-13 16:08 | XMS_ITS | Encounter Summary ---
Author Organization [facility] [employer] Care Team Providers Care Coke Still Cleaner Name Role Phone Wali Pak MD Primary Care Provider Encounter Details Date Type Department Care Team (Latest Contact Info) Description 11/30/2022 Travel Social History Tobacco Use Types Packs/Day [...] Coronavirus/COVID-19? 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 documented as of this encounter Plan of Treatment Upcoming Encounters Date Type Department Care Team (Late st Contact Info) Description 02/05/2025 8:00 AM CDT Office Visit [facility] - Internal Medicine - [place] [address] [place] [address] Wali Pak MD [address] [place] [address] documented as of this encounter Visit Diagnoses Not on filedocumented in this encounter Additional Health Concerns Assessment Noted Time PHQ-9 Depression Total Score: 3 01/20/20 22 9:00 AM CDT documented as of this encounter Care Teams Coke Still Cleaner Relationship Specialty Start Date End Date Wali Pak MD [address] [place] [address] PCP - General Internal Medicine 12/30/15 documented as of this encounter
--- OUTSIDE RECORDS SUMMARY | 2024-10-13 16:08 | XMS_ITS | Encounter Summary ---
Author Organization [facility] Address [address] [facility] [place] [address] Phone Care Team Providers Care Sound Engineer Audio Control Name Role Phone Wali Pak MD Primary Care Provider [phone] Reason for Visit * Reason Comments Hypertension 3 mo f/u Medication Refill Gout Both feet Encounter Details Date Type Department Care Team (Late st Contact Info) Description 07/07/2022 7:45 AM CDT Office Visit [facility] - Internal Medicine - [place] [address] [place] [address] Wali Pak MD [address] [place] [address] Pain in joints of both feet (Primary Dx); Generalized anxiety disorder; Essential hypertension, benign; Other hyperlipidemia; Hyperglycemia; Hypomagnesemia; Restless leg syndrome; Bilateral lower extremity edema Discharge Disposition: Discharged to home or Selfcare [...] Sign Reading Time Taken Comments Blood Pressure 122/74 07/07/2022 7:43 AM CDT Pulse 70 07/07/2022 7:43 AM CDT Temperature 36.6 ??C (97.8 ??F) 07/07/2022 7:43 AM CD T Respiratory Rate - - Oxygen Saturation 97% 07/07/2022 7:43 AM CDT Inhaled Oxygen Concentration - - Weight 111.1 kg (245 lb) 07/07/2022 7:43 AM CDT Height 167.6 cm (5' 6 ) 07/07/2022 7:43 AM CDT Body Mass Index 39.54 07/07/2022 7:43 AM CDT documented in this encounter Progress Notes * Dayana Chapa CMA - 07/07/2022 7:45 AM CDT Mervat Haro is a 56 y.o. female with current BMI: Body mass index is 39.54 kg/m??. Interventions discussed including: encourage daily physical activity and well- balanced diet. * Dayana Chapa CMA - 07/07/2022 7:45 AM CDT Mervat Haro, 56 y.o., female is here for Hypertension (3 mo f/u), Medication Refill, and Gout (Both feet) Medication Refills: Patient reports/denies need for medication refills. Orders Pended: yes Requested Prescriptions Pending Prescriptions Disp Refills ??? furosemide (LASIX) 20 MG Tablet 90 Tablet 0 Sig: Take 1 Tablet by mouth Daily as needed (Swelling). ??? LORazepam (ATIVAN) 0.5 MG Tablet 10 Tablet 0 Sig: Take 1 Tablet by mouth daily as needed for Anxiety. ??? rOPINIRole (REQUIP) 0.25 MG Tablet 30 Tablet 0 Sig: Take 1 Tablet by mouth nightly. Home Medications Medication Sig Start Date End Date Taking? Authorizing Provider aspirin EC 81 MG Tablet Delayed Response Take 81 mg by mouth daily. Yes Provider, MD Denice buPROPion (WELLBUTRIN) 100 MG Tablet TAKE 1/2 TABLET BY MOUTH TWO TIMES A DAY 06/30/22 Yes Wali Pak MD ezqouptdjr-hvwmobwqkcofo-dxjdiwyu (FIORICET, ESGIC) 50-325-40 MG Tablet Take 1 [...] today: Smoking * Wali Pak MD - 07/07/2022 7:45 AM CDT PROGRESS NOTE [facility] - INTERNAL MEDICINE [address] [place] [address] PHONE: [phone] FAX: [phone] 07/07/2022 NAME: Mervat Haro, : 1965, Assessment ASSESSMENT & PLAN: Return in about 3 months (around 10/06/2022) for htn. Diagnoses and all orders for this visit: Arthralgia, unspecified joint Comments: Will check RA factor, ERMELINDA, uric acid level Orders: - URIC ACID (BLOOD ASSAY); Future - RHEUMATOID FACTOR (RFQT) QUANT; Future - ERMELINDA SCREEN MULTIPLEX W/REFLEX CARMINA; Future Generalized anxiety disorder Comments: Stable. Continue current medication Orders: - LORazepam (ATIVAN) 0.5 MG Tablet; Take 1 Tablet by mouth daily as needed for Anxiety. Essential hypertension, benign Comments: Stable. Continue current medication Orders: - CMP (COMPREHENSIVE METABOLIC PANEL); Future - LIPID PANEL; Future Other hyperlipidemia Comments: Continue low-cholesterol diet Orders: - CMP (COMPREHENSIVE METABOLIC PANEL); Future - LIPID PANEL; Future Hyperglycemia Comments: Continue low carb diet. Check HbA1c Orders: - HEMOGLOBIN A1C W/ ESTIMATED GLUCOSE; Future Hypomagnesemia Comments: Check magnesium level. Orders: - MAGNESIUM (MG); Future Restless leg syndrome Comments: Stable. Continue current medication Bilateral lower extremity edema Comments: Continue p.r.n. furosemide Other orders - furosemide (LASIX) 20 MG Tablet; Take 1 Tablet by mouth Daily as needed (Swelling). - rOPINIRole (REQUIP) 0.25 MG Tablet; Take 1 Tablet by mouth nightly. Follow-up depends upon lab results Chief Complaint Patient presents with ??? Hypertension 3 mo f/u ??? Medication Refill ??? Gout Both feet HPI Patient is here for follow-up for hypertension other medical problems. Complains of generalized arthralgia. Lately has pain in both feet especially both 1st metatarsophalangeal joints. Joints gets swollen and inflamed which last for 2-3 days and resolves. Her twin sister being investigated for possible lupus. Tolerating medications well. No chest pain or palpitation. No headache or dizziness. Occasional use of alprazolam. ROS Review of systems was negative, except as documented in HPI PHYSICAL EXAM VITALS: Wt Readings from Last 3 Encounters: 07/07/22 245 lb (111.1 kg) 01/19/22 243 lb (110.2 kg) 10/15/21 240 lb (108.9 kg) Temp Readings from Last 3 Encounters: 07/07/22 97.8 ??F (36.6 ??C) (Temporal) 01/19/22 97.9 ??F (36.6 ??C) (Temporal) 10/15/21 97.5 ??F (36.4 ??C) (Temporal) BP Readings from Last 3 Encounters: 07/07/22 122/74 01/19/22 116/68 10/15/21 124/72 Pulse Readings from Last 3 Encounters: 07/07/22 70 01/19/22 78 10/15/21 76 Physical Exam Vitals and nursing note reviewed. [...] ??? buPROPion (WELLBUTRIN) 100 MG Tablet ??? owcibimvia-fgmcchqkztbaf-ylwkboms (FIORICET, ESGIC) 50-325-40 MG Tablet ??? furosemide [...] may have occurred. By: Wali Pak MD 07/07/2022 8:50 AM CDT documented in this encounter Plan of Treatment Upcoming Encounters Date Type Department Care Team (Late st Contact Info) Description 02/05/2025 8:00 AM CDT Office Visit [facility] - Internal Medicine - [place] [address] [place] [address] Wali Pak MD [address] [place] [address] documented as of this encounter Results * MAGNESIUM (MG) (07/08/2022 7:53 AM CDT) MAGNESIUM 2.2 1.8 - 2.5 mg/dL 07/08/2022 3:40 PM CDT [facility] Blood Venipuncture / Unknown 07/08/2022 7:53 AM CDT 07/08/2022 7:53 AM CDT us Wali Pak MD CHEMISTRY ORDERABLES Final Result [facility] [place] [address] * ERMELINDA SCREEN MULTIPLEX W/REFLEX CARMINA (07/08/2022 7:53 AM CDT) Pathologist [facility] ERMELINDA SCR MULTIPLEX Negative Negative, See comment 07/08/2022 10:[address] [facility] Blood Venipuncture / Unknown 07/08/2022 7:53 AM CDT 07/08/2022 7:[address] [facility] - 07/08/2022 10:26 PM CDT Antibody testing was performed by multiplex flow immunoassay on the [employer] platform. us Wali Pak MD IMMUNOLOGY ORDERABLES Final Result Performing Organization Address City/State/[facility] Co de Phone Number [facility] [address] [place] [address], [place] * RHEUMATOID FACTOR (RFQT) QUANT (07/08/2022 7:53 AM CDT) Pathologist [facility] RHEUMATOID FACTOR QT <11 <14 IU/mL 07/08/2022 3:40 PM CDT [facility] Blood Venipuncture / Unknown 07/08/2022 7:53 AM CDT 07/08/2022 7:53 AM CDT Narrative [facility] - 07/08/2022 3:40 PM CDT RHEUMATOID FACTORS CAN BE FOUND IN RHEUMATOID ARTHRITIS, SYPHILIS, VIRAL INFECTIONS, LEPROSY, CHRONIC LIVER DISEASE, NEOPLASMS, AND OTHER INFLAMMATORY CONDITIONS. RF PREVALENCE ALSO INCREASES WITH AGE. THUS A POSITIVE TEST IS NOT RESTRICTED TO RA. CONVERSELY, A NEGATIVE TEST DOES NOT RULE OUT RA, RHEUMATOID FACTORS ARE NOT DETECTABLE IN 10% OF ADULTS WITH THE DISEASE. us Wali Pak MD CHEMISTRY ORDERABLES Final Result [facility] [address] [place] [address] * URIC ACID (BLOOD ASSAY) (07/08/2022 7:53 AM CDT) URIC ACID 4.8 2.4 - 5.7 mg/dL 07/08/2022 3:40 PM CDT [facility] Blood Venipuncture / Unknown 07/08/2022 7:53 AM CDT 07/08/2022 7:53 AM CDT Wali Pak MD CHEMISTRY ORDERABLES Final Result [facility] [address] [place] [address] * (ABNORMAL) HEMOGLOBIN A1C W/ ESTIMATED GLUCOSE (07/08/2022 7:53 AM CDT) HGB-A1C 9.0(H) 4.0 - 6.0 % 07/08/2022 4:34 PM CDT [facility] Est Average Glucose 211.6 mg/dL 07/08/2022 4:34 PM CDT [facility] Blood Venipuncture / Unknown 07/08/2022 7:53 AM CDT 07/08/2022 7:53 AM CDT Narrative [facility] - 07/08/2022 4:34 PM CDT HEMOGLOBIN A1C: DIABETIC PATIENTS: WELL-CONTROLLED: ?? 6.2 - 7.0 INTERMEDIATE WELL-CONTROLLED: ??7.0 - 9.0 POORLY-CONTROLLED: ??>9.0 us Wali Pak MD CHEMISTRY ORDERABLES Final Result [facility] [address] [place] [address] * (ABNORMAL) LIPID PANEL (07/08/2022 7:53 AM CDT) CHOLESTEROL 205(H) <=200 mg/dL 07/08/2022 3:40 PM CDT [facility] TRIGLYCERIDES 78 <150 mg/dL 07/08/2022 3:40 PM CDT [facility] HDL CHOLESTEROL 44.8 >40 mg/dL 3:40 PM CDT [facility] LDL 145(H) 5 - 130 mg/dL 07/08/2022 3:40 PM CDT [facility] VLDL 16 5 - 55 mg/dL 07/08/2022 3:40 PM CDT [facility] CHOL/HDL RATIO 4.6(H) 0.0 - 4.4 07/08/2022 3:40 PM CDT [facility] NON-HDL CHOLESTEROL 160.2(H) <130 mg/dL 07/08/2022 3:40 PM CDT [facility] Blood Venipuncture / Unknown 07/08/2022 7:53 AM CDT 07/08/2022 7:53 AM CDT Wali Pak MD CHEMISTRY ORDERABLES Final Result [facility] [address] [place] [address] * (ABNORMAL) CMP (COMPREHENSIVE METABOLIC PANEL) (07/08/2022 7:53 AM CDT) SODIUM 141 136 - 144 mmol/L 07/08/2022 3:40 PM CDT [facility] POTASSIUM 5.1 3.5 - 5.1 mmol/L 07/08/2022 3:40 PM CDT [facility] CHLORIDE 104 100 - 110 mmol/L 07/08/2022 3:40 PM CDT [facility] CO2, VENOUS 28 22 - 32 mmol/L 07/08/2022 3:40 PM CDT [facility] ANION GAP 14.1 8.0 - 20.0 mmol/L 07/08/2022 3:40 PM CDT [facility] GLUCOSE 102(H) 70 - 99 mg/dL 07/08/2022 3:40 PM CDT [facility] BUN 16 6 - 20 mg/dL 07/08/2022 3:[address] [facility] CREATININE, BLOOD 0.56(L) 0.60 - 1.10 mg/dL 07/08/2022 3:[address] [facility] BUN/CREATININE RATIO 29(H) 12 - 20 ratio 07/08/2022 3:[address] [facility] TOTAL PROTEIN 7.1 6.0 - 8.3 g/dL 07/08/2022 3:[address] [facility] ALBUMIN 4.3 3.5 - 5.2 g/dL 07/08/2022 3:[address] [facility] Comment: The colormetric methods used for the determination of Albumin may lead to falsely elevated test results in patients suffering from renal failure or insufficiency due to interference with other proteins. A/G RATIO 1.5 1.0 - 2.0 07/08/2022 3:[address] [facility] CALCIUM 9.5 8.9 - 10.3 mg/dL 07/08/2022 3:[address] [facility] T BILI 0.3 <=1.2 mg/dL 07/08/2022 3:[address] [facility] SGOT (AST) 19 <=32 U/L 07/08/2022 3:[address] [facility] Comment: Hemolysis present: results may be falsely elevated. SGPT (ALT) 26 <=41 U/L 07/08/2022 3:[address] [facility] ALKALINE PHOSPHATASE 91 35 - 105 U/L 07/08/2022 3:[address] [facility] IS THE PATIENT REQUIRED TO BE FASTING? No 07/08/2022 3:[address] [facility] GFR, ESTIMATED >60 >=60 07/08/2022 3:40 PM T [facility] Comment: Creatinine Clearance is the preferred criteria for selecting drug dose adjustments in renally impaired patients. ??The GFR is provided as additional pertinent clinical information. GFR is reported in mL/min/1.73 sq m. Calculation based on the Chronic Kidney Disease Epidemiology Collaboration (CKD- EPI) equation refit without adjustment for race. GFR, EST. >60 >=60 022 3:40 PM CDT [facility] GFR, EST. NONAFRICAN >60 >=60 07/08/2022 3:40 PM CDT [facility] Blood Venipuncture / Unknown 07/08/2022 7:53 AM CDT 07/08/2022 7:53 AM CDT us Wali Pak MD CHEMISTRY ORDERABLES Final Result [facility] [place] [address] documented in this encounter Visit Diagnoses Diagnosis Pain in joints of both feet- Primary Generalized anxiety disorder Essential hypertension, benign Other hyperlipidemia Hyperglycemia Other abnormal glucose Hypomagnesemia Disorders of magnesium metabolism Restless leg syndrome Restless legs syndrome (RLS) Bilateral lower extremity edema Edema documented in this encounter Additional Health Concerns Assessment Noted Time PHQ-9 Depression Total Score: 3 01/20/20 22 9:00 AM CDT documented as of this encounter Care Teams Sound Engineer Audio Control Relationship Specialty Start Date End Date Wali Pak MD [address] [place] [address] PCP - General Internal Medicine 12/30/15 documented as of this encounter
--- OUTSIDE RECORDS SUMMARY | 2024-10-13 16:08 | XMS_ITS | Encounter Summary ---
Author Organization [facility] Address [address] [facility] [place] [address] Phone Care Team Providers Care Appraiser Auditor Name Role Phone Wali Pak MD Primary Care Provider Encounter Details Date Type Department Care Team (Late st Contact Info) Description 06/16/2021 Refill [facility] - Internal Medicine - [place] [address] [place] [address] Wali Pak MD [address] [facility] [place] [address] Social History Tobacco Use Types Packs/Day Years Used Date Smoking Tobacco: Some Days Cigarettes 0.3 3 Smokeless Tobacco: Never Comments:social [...] Telephone Encounter - Fernanda Devine RN - 06/16/2021 11:13 AM CDT ----- Message from Payton Burns sent at 06/16/2021 10:25 AM CDT ----- Regarding: RX R/F HAVE YOU CALLED YOUR PHARMACY? yes Medication: Metoprolol 50 mg [facility] Call back number:[phone] DETAILS---Needs new script as she only takes 1 tablet daily. documented in this encounter Plan of Treatment Upcoming Encounters Date Type Department Care Team (Late st Contact Info) Description 02/05/2025 8:00 AM CDT Office Visit [facility] - Internal Medicine [place] [address] [place] [address] Wali Pak MD [address] [place] [address] documented as of this encounter Visit Diagnoses Not on filedocumented in this encounter Additional Health Concerns Assessment Noted Time PHQ-9 Depression Total Score: 0 12/13/19 21 9:00 AM BLEACH SUPERVISOR documented as of this encounter Care Teams Appraiser Auditor Relationship Specialty Start Date End Date Wali Pak MD [address] [place] [address] PCP - General Internal Medicine 12/30/15 documented as of this encounter
--- OUTSIDE RECORDS SUMMARY | 2024-10-13 16:08 | XMS_ITS | Encounter Summary ---
Author Organization [facility] Address [address] [facility] [place] [address] Phone Care Team Providers Care Material Flow Analyst Name Role Phone Wali Pak MD Primary Care Provider Reason for Visit * Reason Comments Knee Pain Encounter Details Date Type Department Care Team (Late st Contact Info) Description 11/30/2022 2:56 PM ROPE LAYING MACHINE OPERATOR - 11/30/2022 4:41 PM ROPE LAYING MACHINE OPERATOR Emergency [facility] Emergency [address] [place] [address] Dylan Austin, DO [address] [place] [address] Acute pain of right knee Discharge Disposition: Discharged to home or Selfcare [...] Coronavirus/COVID-19? No / Unsure 11/30/2022 2:52 PM ROPE LAYING MACHINE OPERATOR documented as of this encounter Last Filed Vital Signs Vital Sign Reading Time Taken Comments Blood Pressure 147/78 11/30/2022 2:52 PM ROPE LAYING MACHINE OPERATOR Pulse 72 11/30/2022 2:52 PM ROPE LAYING MACHINE OPERATOR Temperature 35.8 ??C (96.4 ??F) 11/30/2022 2:52 PM CS T Respiratory Rate 18 11/30/2022 2:52 PM ROPE LAYING MACHINE OPERATOR Oxygen Saturation 99% 11/30/2022 2:52 PM ROPE LAYING MACHINE OPERATOR Inhaled Oxygen Concentration - - Weight 110.2 kg (243 lb) 11/30/2022 2:52 PM ROPE LAYING MACHINE OPERATOR Height 167.6 cm (5' 6 ) 11/30/2022 2:52 PM ROPE LAYING MACHINE OPERATOR Body Mass Index 39.22 11/30/2022 2:52 PM ROPE LAYING MACHINE OPERATOR documented in this encounter Discharge Instructions * Discharge Instructions* Dylan Austin DO - 11/30/2022 3:37 PM ROPE LAYING MACHINE OPERATOR Follow up with your doctor within 24hrs Take Medications as prescribed. Return to ER immediately at anytime if symptoms worsen/ persists, chest pain, shortness of breath, lightheadedness, loss of consciousness, numbness/weakness/tingling in your arms or legs. If patient is using abdominal or rib muscles to breathe or breathing faster than normal. Return if fevers greater than 101, continuous vomiting, inability to drink fluids or tolerate solids by mouth, dehydration, lethargy, if patient not acting normally or any other concerns you may have. Please followup with your primary care doctor or the physician he had been given here in the emergency department prior to any travel. LAYING MACHINE OPERATOR * Attachments The following attachments cannot be sent through Care Everywhere. * Acute Knee Pain Adult ([place] Citizen) documented in this encounter Medications at Time of Discharge aspirin EC 81 MG Tablet Delayed Response Take 81 mg by mouth daily. buPROPion (WELLBUTRIN) 100 MG Tablet Take 100 mg by mouth. 12/28/2019 06/30/2023 buPROPion (WELLBUTRIN) 100 MG Tablet TAKE 1/2 TABLET BY MOUTH TWO TIMES A DAY 30 Tablet 10/15/2022 12/14/2022 butalbital-acetam inophen-caffeine (FIORICET, ESGIC) 50-325-40 MG Tablet Take 1 Tab by mouth every 6 hours as needed for Headaches. 15 Tab 1 08/06/2020 07/29/2023 cyclobenzaprine (FLEXERIL) 10 MG Tablet Take 1 Tablet by mouth 3 times daily as needed (pain) for up to 14 days. 30 Tablet 11/30/2022 12/14/2022 furosemide (LASIX) 20 MG Tablet TAKE 1 TABLET BY MOUTH DAILY NEEDED (SWELLING). 90 Tablet 10/02/2022 01/12/2023 LORazepam (ATIVAN) 0.5 MG Tablet Take 0.5 mg by mouth. 02/05/2020 10/11/2023 LORazepam (ATIVAN) 0.5 MG TabletIndications :Generalized anxiety disorder Take 1 Tablet by mouth daily as needed for Anxiety. 15 Tablet 07/07/2022 04/13/2023 metFORMIN (GLUCOPHAGE) 500 MG Tablet Take 1 Tablet by mouth 2 times daily (with meals). 180 Tablet 3 07/09/2022 04/13/2023 metoprolol Succinate (TOPROL-XL) 50 MG TABLET SR 24 HR TAKE 1 TABLET BY MOUTH EVERY DAY 30 Tablet 2 12/31/2021 02/07/2024 naproxen (NAPROSYN) 500 MG Tablet Take 500 mg by mouth. 11/30/2022 06/30/2023 naproxen (NAPROSYN) 500 MG Tablet Take 1 Tablet by mouth 2 times daily as needed for Mild or more severe pain. 20 Tablet 11/30/2022 04/13/2023 predniSONE (DELTASONE) 50 MG Tablet Take 1 Tablet by mouth daily for 7 days. 7 Tablet 11/30/2022 12/07/2022 rOPINIRole (REQUIP) 0.25 MG Tablet TAKE 1 TABLET BY MOUTH NIGHTLY 30 Tablet 3 11/11/2022 10/11/2023 documented as of this encounter ED Notes * SchmidtIvania bush RN - 11/30/2022 4:40 PM CST Patient discharged. Discharge instructions and patient educational material reviewed with patient; questions and concerns addressed; patient verbalizes understanding, using teach back. Patient was given 3 prescriptions. Patient was informed no drinking alcohol, driving or operating heavy machinery while taking narcotics or muscle relaxants. Patient discharged via wheelchair; no distress noted. LAYING MACHINE OPERATOR * Ivania Schmidt RN - 11/30/2022 4:35 PM CST Pt medicated per provider orders. Pt educated on intended effects and side effects of medication and verbalized understanding, able to provide teach back of education. LAYING MACHINE OPERATOR * Dylan Austin DO - 11/30/2022 3:38 PM CST Chief Complaint Patient presents with ??? Knee Pain 57-year-old female complains of right knee pain, constant, mild, nonradiating, no alleviating factors, worse with ambulation she notes she is on her feet a lot, started last night with no medicationstried at this point. She notes she has a history of having that right knee scoped in the past and this feels somewhat similar. Daughter at the bedside and cooperation of the story. No fevers or recent illness. No current facility-administered medications for this encounter. Current Outpatient Medications Medication Sig Dispense Refill ??? aspirin EC 81 MG Tablet Delayed Response Take 81 mg by mouth daily. ??? buPROPion (WELLBUTRIN) 100 MG Tablet TAKE 1/2 TABLET BY MOUTH TWO TIMES A DAY 30 Tablet 0 ??? ohcysrobaj-pnosseplszuni-osihgsmv (FIORICET, ESGIC) 50-325-40 MG Tablet Take 1 Tab by mouth every 6 hours as needed for Headaches. 15 Tab 1 ??? cyclobenzaprine (FLEXERIL) 10 MG Tablet Take 1 Tablet by mouth 3 times daily as needed (pain) for up to 14 days. 30 Tablet 0 ??? furosemide (LASIX) 20 MG Tablet TAKE 1 TABLET BY MOUTH DAILY NEEDED (SWELLING). 90 Tablet 0 ??? LORazepam (ATIVAN) 0.5 MG Tablet Take 1 Tablet by mouth daily as needed for Anxiety. 15 Tablet 0 ??? metFORMIN (GLUCOPHAGE) 500 MG Tablet Take 1 Tablet by mouth 2 times daily (with meals). 180 Tablet 3 ??? metoprolol Succinate (TOPROL-XL) 50 MG TABLET SR 24 HR TAKE 1 TABLET BY MOUTH EVERY DAY 30 Tablet 2 ??? naproxen (NAPROSYN) 500 MG Tablet Take 1 Tablet by mouth 2 times daily as needed for Mild or more severe pain. 20 Tablet 0 ??? predniSONE (DELTASONE) 50 MG Tablet Take 1 Tablet by mouth daily for 7 days. 7 Tablet 0 ??? rOPINIRole (REQUIP) 0.25 MG Tablet TAKE 1 TABLET BY MOUTH NIGHTLY 30 Tablet 3 Allergies Allergen Reactions ??? Latex Rash When wears latex herself ??? Penicillins Rash As a child / has had penicillin since then with no problems Past Medical History Positives Diagnosis Date ??? Hypertension Past Surgical History: Procedure Laterality Date ??? APPENDECTOMY ??? FINGER TRIGGER RELEASE Right 12/27/2017 Procedure: TRIGGER FINGER RELEASE RIGHT MIDDLE FINGER; Surgeon: Duran Marmolejo MD; Location: [facility]; Service: Orthopaedic ??? HYSTERECTOMY ??? KNEE ARTHROSCOPY 2013 Social History Socioeconomic History ??? Marital status: Spouse name: Not on file ??? Number of children: Not on file ??? Years of education: Not on file ??? Highest education level: Not on file Occupational History ??? 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 Not on file BP 147/78 Pulse 72 Temp (!) 96.4 ??F (35.8 ??C) (Tympanic) Resp 18 Ht 5' 6 (1.676 m) Wt 243 lb (110.2 kg) SpO2 99% BMI 39.22 kg/m?? Review of Systems Constitutional: Negative for activity change, appetite change, chills, diaphoresis, fatigue and fever. HENT: Negative for dental problem, rhinorrhea and sore throat. Eyes: Negative for visual disturbance. Respiratory: Negative for cough, chest tightness, shortness of breath and wheezing. Cardiovascular: Negative for chest pain, palpitations and leg swelling. Gastrointestinal: Negative for abdominal pain, constipation, diarrhea, nausea and vomiting. Genitourinary: Negative for difficulty urinating, flank pain, hematuria and urgency. Musculoskeletal: Negative for arthralgias, back pain, myalgias, neck pain and neck stiffness. Knee pain Skin: Negative for color change and rash. Allergic/Immunologic: Negative for food allergies. Neurological: Negative for dizziness, syncope, weakness, light-headedness, numbness and headaches. Psychiatric/Behavioral: Negative for self-injury, sleep disturbance and suicidal ideas. All other systems reviewed and are negative. Physical Exam Vitals and nursing note reviewed. Constitutional: General: She is not in acute distress. Appearance: She is well-developed. She is not diaphoretic. Comments: Age-appropriate, female, daughter at the bedside, over nourished, no acute distress, very pleasant cooperative. HENT: Head: Normocephalic and atraumatic. Right Ear: External ear normal. Left Ear: External ear normal. Nose: Nose normal. Mouth/Throat: Mouth: Mucous membranes are moist. Pharynx: No oropharyngeal exudate. Eyes: General: Right eye: No discharge. Left eye: No discharge. Conjunctiva/sclera: Conjunctivae normal. Pupils: Pupils are equal, round, and reactive to light. Neck: Thyroid: No thyromegaly. Vascular: No JVD. Trachea: No tracheal deviation. Cardiovascular: Rate and Rhythm: Normal rate and regular rhythm. Heart sounds: Normal heart sounds. No murmur heard. Pulmonary: Effort: Pulmonary effort is normal. No respiratory distress. Breath sounds: Normal breath sounds. No wheezing or rales. Chest: Chest wall: No tenderness. Abdominal: General: Bowel sounds are normal. There is no distension. Palpations: Abdomen is soft. There is no mass. Tenderness: There is no abdominal tenderness. There is no guarding or rebound. Musculoskeletal: General: Tenderness (Right knee medial aspect with some mild swelling noted) present. Normal range of motion. Cervical back: Normal range of motion and neck supple. Lymphadenopathy: Cervical: No cervical adenopathy. Skin: General: Skin is warm and dry. Capillary Refill: Capillary refill takes less than 2 seconds. Coloration: Skin is not pale. Findings: No erythema or rash. Neurological: Mental Status: She is alert and oriented to person, place, and time. Cranial Nerves: No cranial nerve deficit. Motor: No abnormal muscle tone. Coordination: Coordination normal. Deep Tendon Reflexes: Reflexes are normal and symmetric. Psychiatric: Behavior: Behavior normal. Thought Content: Thought content normal. Procedures Imaging Results XR KNEE 1 OR 2 VIEWS RIGHT (In process) Result time 11/30/22 15:15:10 Procedure changed from XR KNEE 3 VIEWS RIGHT XR KNEE 3 VIEWS RIGHT (Canceled) No fracture seen, prelim 3:41 PM ROPE LAYING MACHINE OPERATOR Re-eval: Patient feeling better, no new issues, wants to go home, she is comfortable with dischargeand follow up with primary care doctor. All questions have been answered to the patient and any friends/family present currently present. Home prescription meds consideration: Medication List START taking these medications cyclobenzaprine 10 MG Tabs Commonly known as: FLEXERIL Take 1 Tablet by mouth 3 times daily as needed (pain) for up to 14 days. naproxen 500 MG Tabs Commonly known as: NAPROSYN Take 1 Tablet by mouth 2 times daily as needed for Mild or more severe pain. predniSONE 50 MG Tabs Commonly known as: DELTASONE Take 1 Tablet by mouth daily for 7 days. ASK your doctor about these medications aspirin EC 81 MG Tbec buPROPion 100 MG Tabs Commonly known as: WELLBUTRIN TAKE 1/2 TABLET BY MOUTH TWO TIMES A DAY arycrqnlla-xzdftqqlbbqhd-dbwbreie 50-325-40 MG Tabs Commonly known as: FIORICET, ESGIC Take 1 Tab by mouth every 6 hours as needed for Headaches. furosemide 20 MG Tabs Commonly known as: LASIX TAKE 1 TABLET BY MOUTH DAILY NEEDED (SWELLING). LORazepam 0.5 MG Tabs Commonly known as: ATIVAN Take 1 Tablet by mouth daily as needed for Anxiety. metFORMIN 500 MG Tabs Commonly known as: GLUCOPHAGE Take 1 Tablet by mouth 2 times daily (with meals). metoprolol Succinate 50 MG Tab-sr-24hr Commonly known as: TOPROL-XL TAKE 1 TABLET BY MOUTH EVERY DAY rOPINIRole 0.25 MG Tabs Commonly known as: REQUIP TAKE 1 TABLET BY MOUTH NIGHTLY Where to Get Your Medications These medications were sent to [facility] [id number] [place] [address] [facility] [id number] ?? cyclobenzaprine 10 MG Tabs ?? naproxen 500 MG Tabs ?? predniSONE 50 MG Tabs Labs Reviewed - No data to display Medical Decision Making Rice therapy for home, steroids, pain medicines, recommended knee brace and ortho p.r.n.. Amount and/or Complexity of Data Reviewed Independent Historian: Details: Daughter Radiology: ordered and independent interpretation performed. Coding Clinical Impression 1. Acute pain of right knee Disposition: Discharge home Condition:Stable CLINICAL IMPRESSION: 1. Acute pain of right knee Current Outpatient Medications Medication Instructions ??? aspirin EC 81 mg, Oral, DAILY ??? buPROPion (WELLBUTRIN) 100 MG Tablet TAKE 1/2 TABLET BY MOUTH TWO TIMES A DAY ??? amjioqggvi-uxcpipghiuxbr-cktvfypm (FIORICET, ESGIC) 50-325-40 MG Tablet 1 Tablet, Oral, EVERY 6HOURS PRN ??? cyclobenzaprine (FLEXERIL) 10 mg, Oral, 3 TIMES DAILY PRN ??? furosemide (LASIX) 20 mg, Oral, DAILY PRN ??? LORazepam (ATIVAN) 0.5 mg, Oral, DAILY PRN ??? metFORMIN (GLUCOPHAGE) 500 mg, Oral, 2 TIMES DAILY WITH MEALS ??? metoprolol Succinate (TOPROL-XL) 50 MG TABLET SR 24 HR TAKE 1 TABLET BY MOUTH EVERY DAY ??? naproxen (NAPROSYN) 500 mg, Oral, 2 TIMES DAILY PRN ??? predniSONE (DELTASONE) 50 mg, Oral, DAILY ??? rOPINIRole (REQUIP) 0.25 mg, Oral, NIGHTLY No current facility-administered medications on file prior to encounter. Current Outpatient Medications on File Prior to Encounter Medication Sig Dispense Refill ??? aspirin EC 81 MG Tablet Delayed Response Take 81 mg by mouth daily. ??? buPROPion (WELLBUTRIN) 100 MG Tablet TAKE 1/2 TABLET BY MOUTH TWO TIMES A DAY 30 Tablet 0 ??? nkxnkksgee-frhcbvxlfdyfu-dbvxpesz (FIORICET, ESGIC) 50-325-40 MG Tablet Take 1 Tab by mouth every 6 hours as needed for Headaches. 15 Tab 1 ??? furosemide (LASIX) 20 MG Tablet TAKE 1 TABLET BY MOUTH DAILY NEEDED (SWELLING). 90 Tablet 0 ??? LORazepam (ATIVAN) 0.5 MG Tablet Take 1 Tablet by mouth daily as needed for Anxiety. 15 Tablet 0 ??? metFORMIN (GLUCOPHAGE) 500 MG Tablet Take 1 Tablet by mouth 2 times daily (with meals). 180 Tablet 3 ??? metoprolol Succinate (TOPROL-XL) 50 MG TABLET SR 24 HR TAKE 1 TABLET BY MOUTH EVERY DAY 30 Tablet 2 ??? rOPINIRole (REQUIP) 0.25 MG Tablet TAKE 1 TABLET BY MOUTH NIGHTLY 30 Tablet 3 Dylan Austin D.O. Emergency/Tactical Medicine Note: Portions of this chart may have been completed with voice recognition software and may contain slight errors unrecognizable by the users. This would in no way affect the patient's care and is meant to improve length and quality of medical decision making and history taking. LAYING MACHINE OPERATOR * Carmencita Lu RN - 11/30/2022 2:55 PM CST Patient presents to triage with report of right knee pain that started last night. She states it isstabbing and makes it difficult to move. LAYING MACHINE OPERATOR documented in this encounter Plan of Treatment Upcoming Encounters Date Type Department Care Team (Late st Contact Info) Description 02/05/2025 8:00 AM CDT Office Visit [facility] - Internal Medicine - [place] [address] [place] [address] Wali Pak MD [address] [place] [address] documented as of this encounter Procedures Procedure Name Priority Date/Time Associated Diagnosis Comments XR KNEE 1 OR 2 VIEWS RIGHT STAT 11/30/2022 3:19 PM ROPE LAYING MACHINE OPERATOR documented in this encounter Results * XR KNEE 1 OR 2 VIEWS RIGHT (11/30/2022 3:19 PM ROPE LAYING MACHINE OPERATOR) Anatomical Region Laterality Modality LOWER EXTREMITY, knee Right Digital Ra diography 11/30/2022 4:07 PM ROPE LAYING MACHINE OPERATOR Impressions 11/30/2022 4:10 PM ROPE LAYING MACHINE OPERATOR IMPRESSION: Mild arthritic change of the right knee with no acute osseous abnormality Narrative 11/30/2022 4:10 PM ROPE LAYING MACHINE OPERATOR EXAM DESCRIPTION: ?XR KNEE 1 OR 2 VIEWS RIGHT REASON FOR STUDY: ?? Patient c/o right knee pain medially with swelling starting last night, radiating down leg today. Denies injury TECHNIQUE: Frontal and lateral radiographic views acquired of the right knee. COMPARISON: MRI 07/08/2023. FINDINGS: BONES/JOINTS: ?? No acute fracture, malalignment or osseous abnormalities. ?? Mild joint space loss and arthritic change. SOFT TISSUES: ?? Unremarkable. OTHER: ?? No other significant finding. THIS IS AN ELECTRONICALLY VERIFIED FINAL REPORT 11/30/2022 4:07 PM - Electronically signed by ??Varun Dean M.D. CH: CH D: ??11/30/2022 4:07 PM T: ??11/30/2022 4:07 PM Report ID: [id number] Reading Location: ??[id number] Procedure Note Varun Dean Jr., MD - 11/30/2022 EXAM DESCRIPTION: XR KNEE 1 OR 2 VIEWS RIGHT REASON FOR STUDY: Patient c/o right knee pain medially with swelling starting last night, radiating down leg today. Denies injury TECHNIQUE: Frontal and lateral radiographic views acquired of the right knee. COMPARISON: MRI 07/08/2023. FINDINGS: BONES/JOINTS: No acute fracture, malalignment or osseous abnormalities. Mild joint space loss and arthritic change. SOFT TISSUES: Unremarkable. OTHER: No other significant finding. THIS IS AN ELECTRONICALLY VERIFIED FINAL REPORT 11/30/2022 4:07 PM - Electronically signed by Varun Dean M.D. CH: CH Report ID: [id number] Reading Location: [id number] IMPRESSION: Mild arthritic change of the right knee with no acute osseous abnormality us Dylan Florencio Norman DO IMG DIAGNOSTIC ORDERABL ES Final Result documented in this encounter Visit Diagnoses Diagnosis Acute pain of right knee- Primary documented in this encounter Administered Medications Inactive Administered Medications - up to 3 most recent administrations Medication Order MAR Action Action Date Dose Rate Site naproxen (NAPROSYN) tablet 500 mg 500 mg, Oral, ONCE, 1 dose, On Wed11/30/22 at 1600 Given 11/30/2022 4:34 PM ROPE LAYING MACHINE OPERATOR 500 mg documented in this encounter Active and Recently Administered Medications Times are shown in ROPE LAYING MACHINE OPERATOR. Scheduled Medication Order 11/28/2022 11/29/2022 11/30/2022 naproxen (NAPROSYN) tablet 500 mg (COMPLETED) 500 mg, Oral, ONCE, 1 dose, On Wed11/30/22 at 1600 1634 (Given - Provid er: Ivania Schmidt RN) documented in this encounter Additional Health Concerns Assessment Noted Time PHQ-9 Depression Total Score: 3 01/20/20 22 9:00 AM CDT documented as of this encounter Care Teams Material Flow Analyst Relationship Specialty Start Date End Date Wali Pak MD [address] [place] [address] PCP - General Internal Medicine 12/30/15 documented as of this encounter
--- OUTSIDE RECORDS SUMMARY | 2024-10-13 16:08 | XMS_ITS | Encounter Summary ---
Author Organization [facility] Address [address] [place] [address] Phone Care Team Providers Care Overlock Hemmer Name Role Phone Wali Pak MD Primary Care Provider Encounter Details Date Type Department Care Team (Late st Contact Info) Description 07/08/2022 7:30 AM CDT Lab [facility] - [facility] - [place] [address] [place] [address] Lab [facility] Essential hypertension, benign; Other hyperlipidemia; Hyperglycemia; Arthralgia, unspecified joint; Hypomagnesemia Discharge Disposition: Discharged to home or [...] Recorded In the last 10 days, have madison spence been in contact with someone who was confirmed or suspected to have Coronavirus/COVID-19? No / Unsure 07/07/2022 7:38 AM CDT documented as of this encounter Progress Notes * Norma Stratton RMA - 07/08/2022 7:30 AM CDT Mervat presents for lab draw per order of Dr. Pak dated 07/08/2022. Specimen collected from right antecubital without incident. documented in this encounter Plan of Treatment Upcoming Encounters Date Type Department Care Team (Late st Contact Info) Description 02/05/2025 8:00 AM CDT Office Visit [facility] [place] [address] [place] [address] Wali Pak MD [address] [place] [address] documented as of this encounter Procedures Procedure Name Priority Date/Time Associated Diagnosis Comments HEMOGLOBIN A1C W/ ESTIMATED GLUCOSE Routine 07/08/2022 7:53 AM CDT Hyperglycemia URIC ACID (BLOOD ASSAY) Routine 07/08/2022 7:53 AM CDT Arthralgia, unspecified joint RHEUMATOID FACTOR (RFQT) QUANT Routine 07/08/2022 7:53 AM CDT Arthralgia, unspecified joint MAGNESIUM (MG) Routine 07/08/2022 7:53 AM CDT Hypomagnesemia LIPID PANEL Routine 07/08/2022 7:53 AM CDT Essential hypertension, benign Other hyperlipidemia CMP (COMPREHENSIVE METABOLIC PANEL) Routine 07/08/2022 7:53 AM CDT Essential hypertension, benign Other hyperlipidemia ERMELINDA SCREEN MULTIPLEX W/REFLEX CARMINA Routine 07/08/2022 7:53 AM CDT Arthralgia, unspecified joint documented in this encounter Results * MAGNESIUM (MG) (07/08/2022 7:53 AM CDT) [facility] MAGNESIUM 2.2 1.8 - 2.5 mg/dL 07/08/2022 3:40 PM CDT [facility] Blood Venipuncture / Unknown 07/08/2022 7:53 AM CDT 07/08/2022 7:53 AM CDT Wali Pak MD CHEMISTRY ORDERABLES Final Result [facility] [place] [address] * ERMELINDA SCREEN MULTIPLEX W/REFLEX CARMINA (07/08/2022 7:53 AM CDT) [facility] ERMELINDA SCR MULTIPLEX Negative Negative, See comment 07/08/2022 10:26 PM CDT [facility] Blood Venipuncture / Unknown 07/08/2022 7:53 AM CDT 07/08/2022 7:[address] [facility] - 07/08/2022 10:26 PM CDT Antibody testing was performed by multiplex flow immunoassay on the [employer]ffline platform. us Wali Pak MD IMMUNOLOGY ORDERABLES Final Result [facility] [address] [place] [address], [place] * RHEUMATOID FACTOR (RFQT) QUANT (07/08/2022 7:53 AM CDT) [facility] RHEUMATOID FACTOR QT <11 <14 IU/mL 07/08/2022 3:40 PM CDT [facility] Blood Venipuncture / Unknown 07/08/2022 7:53 AM CDT 07/08/2022 7:53 AM CDT Narrative [facility] - 07/08/2022 3:40 PM CDT RHEUMATOID FACTORS CAN BE FOUND IN RHEUMATOID ARTHRITIS, SYPHILIS, VIRAL INFECTIONS, LEPROSY, CHRONIC LIVER DISEASE, NEOPLASMS, AND OTHER INFLAMMATORY CONDITIONS. RF PREVALENCE ALSO INCREASES WITH AGE. THUS A POSITIVE TEST IS NOT RESTRICTED TO RA. CONVERSELY, A NEGATIVE TEST DOES NOT RULE OUT RA, RHEUMATOID FACTORS ARE NOT DETECTABLE IN 10% OF ADULTS WITH THE DISEASE. Wali Pak MD CHEMISTRY ORDERABLES Final Result Performing Organization Address City/[facility]/ZIP Co de Phone Number [facility] [place] [address] * URIC ACID (BLOOD ASSAY) (07/08/2022 7:53 AM CDT) URIC ACID 4.8 2.4 - 5.7 mg/dL 07/08/2022 3:40 PM CDT [facility] Blood Venipuncture / Unknown 07/08/2022 7:53 AM CDT 07/08/2022 7:53 AM CDT Wali Pak MD CHEMISTRY ORDERABLES Final Result Performing Organization Address City/[facility]/ZIP Co de Phone Number [facility] [place] [address] * (ABNORMAL) HEMOGLOBIN A1C W/ ESTIMATED GLUCOSE (07/08/2022 7:53 AM CDT) HGB-A1C 9.0(H) 4.0 - 6.0 % 07/08/2022 4:34 PM CDT [facility] Est Average Glucose 211.6 mg/dL 07/08/2022 4:34 PM CDT [facility] Blood Venipuncture / Unknown 07/08/2022 7:53 AM CDT 07/08/2022 7:53 AM CDT Narrative [facility] - 07/08/2022 4:34 PM CDT HEMOGLOBIN A1C: DIABETIC PATIENTS: WELL-CONTROLLED: ?? 6.2 - 7.0 INTERMEDIATE WELL-CONTROLLED: ??7.0 - 9.0 POORLY-CONTROLLED: ??>9.0 Wali Pak MD CHEMISTRY ORDERABLES Final Result Performing Organization Address City/[facility] Co de Phone Number [facility] [place] [address] * (ABNORMAL) LIPID PANEL (07/08/2022 7:53 AM CDT) CHOLESTEROL 205(H) <=200 mg/dL 07/08/2022 3:40 PM CDT [facility] TRIGLYCERIDES 78 <150 mg/dL 07/08/2022 3:40 PM CDT [facility] HDL CHOLESTEROL 44.8 >40 mg/dL 3:40 PM CDT [facility] LDL 145(H) 5 - 130 mg/dL 07/08/2022 3:40 PM CDT [facility] VLDL 16 5 - 55 mg/dL 07/08/2022 3:40 PM CDT [facility] CHOL/HDL RATIO 4.6(H) 0.0 - 4.4 07/08/2022 3:40 PM CDT [facility] NON-HDL CHOLESTEROL 160.2(H) <130 mg/dL 07/08/2022 3:40 PM CDT [facility] Blood Venipuncture / Unknown 07/08/2022 7:53 AM CDT 07/08/2022 7:53 AM CDT Wali Pak MD CHEMISTRY ORDERABLES Final Result Performing Organization Address [facility]/ZIP Co de Phone Number [facility] [place] [address] * (ABNORMAL) CMP (COMPREHENSIVE METABOLIC PANEL) (07/08/2022 7:53 AM CDT) SODIUM 141 136 - 144 mmol/L 07/08/2022 3:40 PM CDT [facility] POTASSIUM 5.1 3.5 - 5.1 mmol/L 07/08/2022 3:40 PM CDT [facility] CHLORIDE 104 100 - 110 mmol/L 07/08/2022 3:40 PM CDT [facility] CO2, VENOUS 28 22 - 32 mmol/L 07/08/2022 3:40 PM CDT [facility] ANION GAP 14.1 8.0 - 20.0 mmol/L 07/08/2022 3:40 PM CDT [facility] GLUCOSE 102(H) 70 - 99 mg/dL 07/08/2022 3:40 PM CDT [facility] BUN 16 6 - 20 mg/dL 07/08/2022 3:40 PM CDT [facility] CREATININE, BLOOD 0.56(L) 0.60 - 1.10 mg/dL 07/08/2022 3:40 PM CDT [facility] BUN/CREATININE RATIO 29(H) 12 - 20 ratio 07/08/2022 3:40 PM CDT [facility] TOTAL PROTEIN 7.1 6.0 - 8.3 g/dL 07/08/2022 3:40 PM CDT [facility] ALBUMIN 4.3 3.5 - 5.2 g/dL 07/08/2022 3:40 PM CDT [facility] Comment: The colormetric methods used for the determination of Albumin may lead to falsely elevated test results in patients suffering from renal failure or insufficiency due to interference with other proteins. A/G RATIO 1.5 1.0 - 2.0 07/08/2022 3:40 PM CDT [facility] CALCIUM 9.5 8.9 - 10.3 mg/dL 07/08/2022 3:40 PM CDT [facility] T BILI 0.3 <=1.2 mg/dL 07/08/2022 3:40 PM CDT [facility] SGOT (AST) 19 <=32 U/L 07/08/2022 3:40 PM CDT [facility] Comment: Hemolysis present: results may be falsely elevated. SGPT (ALT) 26 <=41 U/L 07/08/2022 3:40 PM CDT [facility] ALKALINE PHOSPHATASE 91 35 - 105 U/L 07/08/2022 3:40 PM CDT [facility] IS THE PATIENT REQUIRED TO BE FASTING? No 07/08/2022 3:40 PM CDT [facility] GFR, ESTIMATED >60 >=60 07/08/2022 3:40 PM CDT [facility] Comment: Creatinine Clearance is the preferred criteria for selecting drug dose adjustments in renally impaired patients. ??The GFR is provided as additional pertinent clinical information. GFR is reported in mL/min/1.73 sq m. Calculation based on the Chronic Kidney Disease Epidemiology Collaboration (CKD- EPI) equation refit without adjustment for race. GFR, EST. >60 >=60 022 3:40 PM CDT [facility] GFR, EST. NONAFRICAN >60 >=60 07/08/2022 3:40 PM CDT [facility] Blood Venipuncture / Unknown 07/08/2022 7:53 AM CDT 07/08/2022 7:53 AM CDT Wali Pak MD CHEMISTRY ORDERABLES Final Result [facility] [place] [address] documented in this encounter Visit Diagnoses Diagnosis Essential hypertension, benign Other hyperlipidemia Hyperglycemia Other abnormal glucose Arthralgia, unspecified joint Hypomagnesemia Disorders of magnesium metabolism documented in this encounter Additional Health Concerns Assessment Noted Time PHQ-9 Depression Total Score: 3 01/20/20 22 9:00 AM CDT documented as of this encounter Care Teams Overlock Hemmer Relationship Specialty Start Date End Date [place] [address] PCP - General Internal Medicine 12/30/15 documented as of this encounter
--- OUTSIDE RECORDS SUMMARY | 2024-10-13 16:08 | XMS_ITS | Encounter Summary ---
Author Organization [facility] Address [address] [place] [address] Phone Care Team Providers Care Director Of Software Development Name Role Phone Wali Pak MD Primary Care Provider Reason for Referral * Radiology Services (Routine) - Closed Specialty Diagnoses / Procedures Referred By Darío alston Referred To Contact Radiology Diagnoses Breast cancer screening by mammogram Procedures YECENIA SCREENING BILATERAL DIGITAL W CAD W SHY YECENIA SCREENING BILATERAL DIGITAL W Wali Smith MD [address] [place] [address] Phone: tel: fax: Referral ID Status Reason Start Date Expiration Date Visits Re quested Visits Authorized [id number] Closed 07/02/2021 1 1 Reason for Visit * Radiology Services (Routine) - Closed Specialty Diagnoses / Procedures Referred By Darío alston Referred To Contact Radiology Diagnoses Breast cancer screening by mammogram Procedures YECENIA SCREENING BILATERAL DIGITAL W CAD W SHY YECENIA SCREENING BILATERAL DIGITAL W Wali Smith MD [address] [place] [address] Phone: tel: fax: Referral ID Status Reason Start Date Expiration Date Visits Re quested Visits Authorized [id number] Closed 07/02/2021 1 1 Encounter Details Date Type Department Care Team (Late st Contact Info) Description 07/14/2021 6:52 AM CDT - 07/14/2021 11:59 PM CDT Hospital Encounter [facility] Mammography [address] [place] [address] Wali Pak MD [address] [place] [address] Discharge Disposition: Discharged to home or Selfcare [...] [facility] - Internal Medicine - [place] [address] [place] [address] Wali Pak MD [address] [place] [address] documented as of this encounter Procedures Procedure Name Priority Date/Time Associated Diagnosis Comments YECENIA SCREENING BILATERAL DIGITAL W CAD W HSY Routine 07/14/2021 7:40 AM CDT Breast cancer screening by mammogram documented in this encounter Results * [...] to exams dated: ??10/04/2014, 09/22/2014, and 12/09/2011 [facility]. ?? BREAST TISSUE:There are scattered fibroglandular densities [...] Rosa Newton M.D. ? ll/penrad:07/18/2021 14:21:52 ?? Button Maker And Installer(s): Ines ?? RT Jose Juan(Marie)(M), [facility] letter sent: Normal Exam ?? Reading location: [facility] BI-RADS: 1 Negative Procedure Note Rosa [...] to exams dated: 10/04/2014, 09/22/2014, and 12/09/2011 [facility]. BREAST TISSUE:There are scattered fibroglandular densities in [...] exam. Electronically signed by: Rosa henriquez/jimmy:07/18/2021 14:21:52 Button Maker And Installer(s): Ines Manzano RT(R)(M), [facility] letter sent: Normal Exam Reading location: [facility] BI-RADS: 1 Negative us Wali Pak MD IMG MAMMO ORDERABLES Final Result documented in this encounter Visit Diagnoses Diagnosis Breast cancer screening by mammogram documented in this encounter Additional Health Concerns Assessment Noted Time PHQ-9 Depression Total Score: 0 12/13/19 21 9:00 AM SOLVENT STATION ATTENDANT documented as of this encounter Care Teams Director Of Software Development Relationship Specialty Start Date End Date Wali Pak MD [address] [place] [address] PCP - General Internal Medicine 12/30/15 documented as of this encounter
--- OUTSIDE RECORDS SUMMARY | 2024-10-13 16:08 | XMS_ITS | Encounter Summary ---
Author Organization [facility] Address [address] [facility] [address] Phone Care Team Providers Care Medical Office Clerk Name Role Phone Wali Pak MD Primary Care Provider Reason for Visit * Reason Comments Medication Refill Encounter Details Date Type Department Care Team (Late st Contact Info) Description 12/31/2021 Refill [facility] - [facility] - [place] [address] [place] [address] Wali Pak MD [address] [place] [address] Medication Refill Social History Tobacco [...] Miscellaneous Notes * Telephone Encounter - Enedelia Damon, RN - 12/31/2021 8:00 AM CST Medication(s) refilled and signed per [facility] Chronic Medication Refill Standing Order for Pediatricand Adult Patients. Requested Prescriptions Pending Prescriptions Disp Refills ??? metoprolol Succinate (TOPROL-XL) 50 MG TABLET SR 24 HR [Pharmacy Med Name: METOPROLOL SUCC ER 50 MG TAB] 30 Tablet 2 Sig: TAKE 1 TABLET BY MOUTH EVERY DAY Beta-Blockers Protocol Passed - 12/31/2021 1:45 AM Passed - BP on record in the past year Clinician-entered: BP Readings from Last 3 Encounters: 10/15/21 124/72 07/02/21 136/78 12/13/20 130/72 Patient-entered: No data recorded Passed - Visit with relevant provider in past 12 months or upcoming 90 days Recent Visits Date Type Provider Dept 10/15/21 Office Visit Wali Pak MD [facility] 07/02/21 Office Visit Wali Pak MD [facility] [place] Showing recent visits within past 365 days and meeting all other requirements Future Appointments Date Type Provider Dept 01/19/22 Appointment Wali Pak MD [facility] [place] Showing future appointments within next 90 days and meeting all other requirements RING SHED WORKER documented in this encounter Plan of Treatment Upcoming Encounters Date Type Department Care Team (Late st Contact Info) Description 02/05/2025 8:00 AM CDT Office Visit [facility] - Internal Medicine - [place] [address] [place] [address] Wali Pak MD [address] [place] [address] documented as of this encounter Visit Diagnoses Not on filedocumented in this encounter Additional Health Concerns Assessment Noted Time PHQ-9 Depression Total Score: 0 12/13/19 9:00 AM SHEARING SHED WORKER documented as of this encounter Care Teams Medical Office Clerk Relationship Specialty Start Date End Date Wali Pak MD [address] [place] [address] PCP - General Internal Medicine 12/30/15 documented as of this encounter
--- OUTSIDE RECORDS SUMMARY | 2024-10-13 16:08 | XMS_ITS | Encounter Summary ---
Author Organization [facility] Address [address] [facility] [facility] [place] [address] Phone Care Team Providers Care Freight Broker Agent Name Role Phone Wali Pak MD Primary Care Provider Encounter Details Date Type Department Care Team (Late st Contact Info) Description 01/20/2022 7:30 AM CDT Lab [facility] - [place] [address] [place] [address] Lab, [facility] Essential hypertension, benign; Other hyperlipidemia; Hyperglycemia; Other specified hypothyroidism; Muscle pain Discharge Disposition: Discharged to home or Selfcare [...] Progress Notes * Norma Stratton RMA - 01/20/2022 7:30 AM CDT Mervat presents for lab draw per order of Dr. Pak dated 01/20/2022. Specimen collected from right antecubital without incident. documented in this encounter Plan of Treatment Upcoming Encounters Date Type Department Care Team (Late st Contact Info) Description 02/05/2025 8:00 AM CDT Office Visit [facility] - [place] [address] [place] [address] Wali Pak MD [address] [place] [address] documented as of this encounter Procedures Procedure Name Priority Date/Time Associated Diagnosis Comments VITAMIN D, 25 HYDROXY TOTAL Routine 01/20/2022 7:35 AM CDT Muscle pain HEMOGLOBIN A1C W/ ESTIMATED GLUCOSE Routine 01/20/2022 7:35 AM CDT Hyperglycemia VITAMIN B12 Routine 01/20/2022 7:35 AM CDT Muscle pain THYROXINE (T4) FREE Routine 01/20/2022 7 :35 AM CDT Other specified hypothyroidism THYROID STIMULATING HORMONE (TSH) Routine 01/20/2022 7:35 AM CDT Other specified hypothyroidism MAGNESIUM (MG) Routine 01/20/2022 7:35 AM CDT Muscle pain LIPID PANEL Routine 01/20/2022 7:35 AM CDT Essential hypertension, benign Other hyperlipidemia CMP (COMPREHENSIVE METABOLIC PANEL) Routine 01/20/2022 7:35 AM CDT Essential hypertension, benign Other hyperlipidemia documented in this encounter Results * MAGNESIUM (MG) (01/20/2022 7:35 AM CDT) MAGNESIUM 2.1 1.8 - 2.5 mg/dL 01/20/2022 3:46 PM CDT [facility] Blood Venipuncture / Unknown 01/20/2022 7:35 AM CDT 01/20/2022 7:35 AM CDT us Wali Pak MD CHEMISTRY ORDERABLES Final Result [facility] [place] [address] * (ABNORMAL) VITAMIN D, 25 HYDROXY TOTAL (01/20/2022 7:35 AM CDT) VITAMIN D, 25 HYDROX 22(L) >=30 ng/mL 01/20/2022 3:57 PM CDT [facility] Blood Venipuncture / Unknown 01/20/2022 7:35 AM CDT 01/20/2022 7:35 AM CDT Narrative [facility] - 01/20/2022 3:57 PM CDT Published reference ranges for Vitamin D vary depending on time and place and method of testing, and on patient's age, sex, ethnicity and levels of other measured analytes such as parathormone, calcium and phosphorus. ??The result should be evaluated in conjunction with clinical findings and suspicions. [employer] and Endocrine Clinical Practice Guidelines: Status Vitamin D levels (ng/mL) Deficient <=20 At risk of inadequacy 21-29 Sufficient 30-100 Centers of Disease Control and Prevention Guidelines: Status Vitamin D levels (ng/mL) Deficient <13 At risk of inadequacy 13-19 Sufficient 20-50 Possibly harmful >50 References: [employer], 2010 Dietary reference intakes for calcium and vitamin D. [place]: ??The National Academies Press. Duane M, Susy N, Ashu RODRÍGUEZ, et al., Evaluation, treatment, and prevention of Vitamin D deficiency: an Endocrinology Clinical Practice Guideline. JCEM 2011 96: 7 7337-2429. Hilary A, Tripp C, Reilly D, et al., Vitamin D Status: ??[place], 2000- 1005, [facility] data brief, no. 59, MD Chery: ??[facility] Statistics. 2010. Wali Pak MD CHEMISTRY ORDERABLES Final Result Performing Organization Address City/[facility]/ZIP Co de Phone Number [facility] [place] [address] * VITAMIN B12 (01/20/2022 7:35 AM CDT) VITAMIN B12 553 243 - 894 pg/mL 01/20/2022 3:57 PM CDT [facility] Blood Venipuncture / Unknown 01/20/2022 7:35 AM CDT 01/20/2022 7:35 AM CDT Wali Pak MD CHEMISTRY ORDERABLES Final Result Performing Organization Address [facility] Co de Phone Number [facility] [address] [place] [address] * THYROID STIMULATING HORMONE (TSH) (01/20/2022 7:35 AM CDT) TSH 2.820 0.270 - 4.200 mIU/L 01/20/2022 3:46 PM CDT [facility] Blood Venipuncture / Unknown 01/20/2022 7:35 AM CDT 01/20/2022 7:35 AM CDT Wali Pak MD CHEMISTRY ORDERABLES Final Result Performing Organization Address City/[facility]/ZIP Co de Phone Number [facility] [address] [place] [address] * THYROXINE (T4) FREE (01/20/2022 7:35 AM CDT) Pathologist [facility] T4 FREE 1.1 0.9 - 1.7 ng/dL 01/20/2022 3:46 PM CDT [facility] Blood Venipuncture / Unknown 01/20/2022 7:35 AM CDT 01/20/2022 7:35 AM CDT us Wali Pak MD CHEMISTRY ORDERABLES Final Result Performing Organization Address City/[facility]/ZIP Co de Phone Number [facility] [place] [address] * HEMOGLOBIN A1C W/ ESTIMATED GLUCOSE (01/20/2022 7:35 AM CDT) [facility] HGB-A1C 5.9 4.0 - 6.0 % 01/20/2022 3:47 PM CDT [facility] Est Average Glucose 122.6 mg/dL 01/20/2022 3:47 PM CDT [facility] Blood Venipuncture / Unknown 01/20/2022 7:35 AM CDT 01/20/2022 7:35 AM CDT Narrative [facility] - 01/20/2022 3:47 PM CDT HEMOGLOBIN A1C: DIABETIC PATIENTS: WELL-CONTROLLED: ?? 6.2 - 7.0 INTERMEDIATE WELL-CONTROLLED: ??7.0 - 9.0 POORLY-CONTROLLED: ??>9.0 us Wali Pka MD CHEMISTRY ORDERABLES Final Result [facility] [address] [place] [address] * (ABNORMAL) LIPID PANEL (01/20/2022 7:35 AM CDT) [facility] CHOLESTEROL 199 <=200 mg/dL 01/20/2022 3:46 PM CDT [facility] TRIGLYCERIDES 103 <150 mg/dL 01/20/2022 3:46 PM CDT [facility] HDL CHOLESTEROL 44.4 >40 mg/dL 3:46 PM CDT [facility] LDL 134(H) 5 - 130 mg/dL 01/20/2022 3:46 PM CDT [facility] VLDL 21 5 - 55 mg/dL 01/20/2022 3:46 PM CDT [facility] CHOL/HDL RATIO 4.5(H) 0.0 - 4.4 01/20/2022 3:46 PM CDT [facility] NON-HDL CHOLESTEROL 154.6(H) <130 mg/dL 01/20/2022 3:46 PM CDT [facility] Blood Venipuncture / Unknown 01/20/2022 7:35 AM CDT 01/20/2022 7:35 AM CDT us Wali Pak MD CHEMISTRY ORDERABLES Final Result [facility] [address] [place] [address] * (ABNORMAL) CMP (COMPREHENSIVE METABOLIC PANEL) (01/20/2022 7:35 AM CDT) SODIUM 139 136 - 144 mmol/L 01/20/2022 3:46 PM CDT [facility] POTASSIUM 4.2 3.5 - 5.1 mmol/L 01/20/2022 3:46 PM CDT [facility] CHLORIDE 104 100 - 110 mmol/L 01/20/2022 3:46 PM CDT [facility] CO2, VENOUS 26 22 - 32 mmol/L 01/20/2022 3:46 PM CDT [facility] ANION GAP 13.2 8.0 - 20.0 mmol/L 01/20/2022 3:46 PM CDT [facility] GLUCOSE 103(H) 70 - 99 mg/dL 01/20/2022 3:46 PM CDT [facility] BUN 15 6 - 20 mg/dL 01/20/2022 3:46 PM CDT [facility] CREATININE, BLOOD 0.72 0.60 - 1.10 mg/dL 01/20/2022 3:46 PM T [facility] BUN/CREATININE RATIO 21(H) 12 - 20 ratio 01/20/2022 3:46 PM CDT [facility] TOTAL PROTEIN 7.2 6.0 - 8.3 g/dL 01/20/2022 3:46 PM T [facility] ALBUMIN 4.5 3.5 - 5.2 g/dL 01/20/2022 3:46 PM [facility] Comment: The colormetric methods used for the determination of Albumin may lead to falsely elevated test results in patients suffering from renal failure or insufficiency due to interference with other proteins. A/G RATIO 1.7 1.0 - 2.0 01/20/2022 3:46 PM CDT [facility] CALCIUM 9.6 8.9 - 10.3 mg/dL 01/20/2022 3:46 PM T [facility] T BILI 0.7 <=1.2 mg/dL 01/20/2022 3:46 PM T [facility] SGOT (AST) 16 <=32 U/L 01/20/2022 3:46 PM CDT [facility] SGPT (ALT) 22 <=41 U/L 01/20/2022 3:46 PM CDT [facility] ALKALINE PHOSPHATASE 78 35 - 105 U/L 01/20/2022 3:46 PM CDT [facility] GFR, EST. NONAFRICAN >60 >=60 01/20/2022 3:46 PM CDT [facility] GFR, EST. >60 >=60 022 3:46 PM CDT [facility] Comment: Creatinine Clearance is the preferred criteria for selecting drug dose adjustments in renally impaired patients. ??The GFR is provided as additional pertinent clinical information. GFR is reported in mL/min/1.73 sq m. IS THE PATIENT REQUIRED TO BE FASTING? No 01/20/2022 3:46 PM CDT [facility] Blood Venipuncture / Unknown 01/20/2022 7:35 AM CDT 01/20/2022 7:35 AM CDT us Wali Pak MD CHEMISTRY ORDERABLES Final Result [facility] [address] [place] [address] documented in this encounter Visit Diagnoses Diagnosis Essential hypertension, benign Other hyperlipidemia Hyperglycemia Other abnormal glucose Other specified hypothyroidism Muscle pain Mylagia and myositis, unspecified documented in this encounter Additional Health Concerns Assessment Noted Time PHQ-9 Depression Total Score: 3 01/20/20 22 9:00 AM CDT documented as of this encounter Care Teams Freight Broker Agent Relationship Specialty Start Date End Date Wali Pak MD [address] [place] [address] PCP - General Internal Medicine 12/30/15 documented as of this encounter
--- OUTSIDE RECORDS SUMMARY | 2024-10-13 16:08 | XMS_ITS | Encounter Summary ---
Author Organization [facility] Address [address] [facility] [place] [address] Phone Care Team Providers Care Lead Enterprise Architect Name Role Phone Wali Pak MD Primary Care Provider Reason for Visit * Reason Comments Medication Refill Encounter Details Date Type Department Care Team (Late st Contact Info) Description 01/21/2022 Refill [facility] Admitting [address] [place] [id number] Wali Pak MD [address] [place] [address] Medication Refill Social History Tobacco Use Types [...] Telephone Encounter - Fernanda Devine RN - 01/21/2022 10:13 AM CDT Medication failed the protocol, provider [...] Visit [facility] [place] [address] [place] [address] Wali Pak MD [address] [place] [address] documented as of this encounter Visit Diagnoses Not on filedocumented in this encounter Additional Health Concerns Assessment Noted Time PHQ-9 Depression Total Score: 3 01/20/20 22 9:00 AM CDT documented as of this encounter Care Teams Lead Enterprise Architect Relationship Specialty Start Date End Date Wali Pak MD [address] [place] [address] PCP - General Internal Medicine 12/30/15 documented as of this encounter
--- OUTSIDE RECORDS SUMMARY | 2024-10-13 16:08 | XMS_ITS | Encounter Summary ---
Author Organization [facility] Address [address] [facility] [place] [address] Phone Care Team Providers Care Composing Room Machinist Name Role Phone Wali Pak MD Primary Care Provider Reason for Visit * Reason Comments Medication Refill Encounter Details Date Type Department Care Team (Late st Contact Info) Description 08/25/2021 Refill [facility] - [place] [address] [place] [address] Wali Pak MD [address] [facility] [place] [address] Medication Refill Social History Tobacco [...] Telephone Encounter - Fernanda Devine RN - 08/25/2021 7:56 AM CDT Medication(s) refilled and signed per [facility] Chronic Medication Refill Standing Order for Pediatricand Adult Patients. Requested Prescriptions Pending Prescriptions Disp Refills ??? furosemide (LASIX) 20 MG Tablet [Pharmacy Med Name: FUROSEMIDE 20 MG TABLET] 90 Tablet 0 Sig: TAKE 1 TABLET BY MOUTH DAILY NEEDED (SWELLING). Diuretics Protocol Passed - 08/25/2021 12:29 AM Passed - Serum potassium on record in past 12 months POTASSIUM Date Value Ref Range Status 07/14/2021 4.0 3.5 - 5.1 mmol/L Final Passed - Serum sodium on record in past 12 months SODIUM Date Value Ref Range Status 07/14/2021 141 136 - 144 mmol/L Final Passed - Blood pressure on record in past 12 months Clinician-entered: BP Readings from Last 3 Encounters: 07/02/21 136/78 12/13/20 130/72 11/14/18 155/90 Patient-entered: No data recorded Passed - Visit with relevant provider in past 12 months or upcoming 90 days Recent Visits Date Type Provider Dept 07/02/21 Office Visit Wali Pak MD [facility] [place] 12/13/20 Office Visit Wali Pak MD [facility] [place] 10/07/20 Telemedicine Wali Pak MD [facility] [place] 09/23/20 Telemedicine Wali Pak MD [facility] [place] Showing recent visits within past 365 days and meeting all other requirements Future Appointments Date Type Provider Dept 10/06/21 Appointment Wali Pak MD [facility] [place] Showing future appointments within next 90 days and meeting all other requirements Passed - GFR on record in past 12 months GFR, EST. NONAFRICAN Date Value Ref Range Status 07/14/2021 >60 >=60 Final documented in this encounter Plan of Treatment Upcoming Encounters Date Type Department Care Team (Late st Contact Info) Description 02/05/2025 8:00 AM CDT Office Visit [facility] - [place] [address] [place] [address] Wali Pak MD [address] [place] [address] documented as of this encounter Visit Diagnoses Not on filedocumented in this encounter Additional Health Concerns Assessment Noted Time PHQ-9 Depression Total Score: 0 12/13/19 21 9:00 AM SR. VENDOR MANAGEMENT ASSOCIATE documented as of this encounter Care Teams Composing Room Machinist Relationship Specialty Start Date End Date Wali Pak MD [address] [place] [address] PCP - General Internal Medicine 12/30/15 documented as of this encounter
--- OUTSIDE RECORDS SUMMARY | 2024-10-13 16:08 | XMS_ITS | Encounter Summary ---
Author Organization [facility] Address [address] [facility] [place] [address] Phone Care Team Providers Care Guest Services Agent Name Role Phone Wali Pak MD Primary Care Provider [phone] Reason for Visit * Reason Comments High Blood Pressure 3 mo f/u Medication Refill Encounter Details Date Type Department Care Team (Late st Contact Info) Description 10/15/2021 3:30 PM FURNITURE REFINISHER Office Visit [facility] [address] [place] [address] Wali Pak MD [address] [place] [address] Essential hypertension, benign (Primary Dx); Screening for colorectal cancer; Generalized anxiety disorder [...] COVID-19? No / Unsure 10/15/2021 3:13 PM FURNITURE REFINISHER documented as of this encounter Last Filed Vital Signs Vital Sign Reading Time Taken Comments Blood Pressure 124/72 10/15/2021 3:17 PM FURNITURE REFINISHER Pulse 76 10/15/2021 3:17 PM FURNITURE REFINISHER Temperature 36.4 ??C (97.5 ??F) 10/15/2021 3:17 PM CS T Respiratory Rate - - Oxygen Saturation 98% 10/15/2021 3:17 PM FURNITURE REFINISHER Inhaled Oxygen Concentration - - Weight 108.9 kg (240 lb) 10/15/2021 3:17 PM FURNITURE REFINISHER Height 167.6 cm (5' 6 ) 10/15/2021 3:17 PM FURNITURE REFINISHER Body Mass Index 38.74 10/15/2021 3:17 PM FURNITURE REFINISHER documented in this encounter Progress Notes * Dayana Chapa, JEWELRY DESIGNER - 10/15/2021 3:30 PM CST Mervat Haro, 56 y.o., female is here for High Blood Pressure (3 mo f/u) and Medication Refill Medication Refills: Patient reports/denies need for medication refills. Orders Pended: yes Requested Prescriptions Pending Prescriptions Disp Refills ??? LORazepam (ATIVAN) 0.5 MG Tablet 10 Tablet 0 Home Medications Medication Sig Start Date End Date Taking? Authorizing Provider aspirin 325 MG Tablet Take 325 mg by mouth. Yes Provider, MD Denice buPROPion (WELLBUTRIN) 100 MG Tablet Take 1 Tablet by mouth daily. 07/02/21 Yes Wali Pak MD lyxymfwyca-zftxvxjjjcfzk-uanotbek (FIORICET, ESGIC) 50-325-40 MG Tablet Take 1 Tab by mouth every 6hours as needed for Headaches. 08/06/20 Wali Pak MD furosemide (LASIX) 20 MG Tablet TAKE 1 TABLET BY MOUTH DAILY NEEDED (SWELLING). 08/25/21 Yes Wali Pak MD LORazepam (ATIVAN) 0.5 MG Tablet TAKE ONE TABLET BY MOUTH ONCE DAILY NEEDED FOR ANXIETY 09/05/20Yes Wali Pak MD metoprolol Succinate (TOPROL-XL) 50 MG TABLET SR 24 HR TAKE 1 TABLET BY MOUTH EVERY DAY 09/22/21 Yes Wali Pak MD rOPINIRole (REQUIP) 0.25 MG Tablet TAKE 1 TABLET BY MOUTH EVERY DAY AT NIGHT 03/11/21 Yes Wali Pak MD temazepam (RESTORIL) 15 MG Capsule Take 15 mg by mouth. 12/27/20 Yes Provider, MD Denice There are no discontinued [...] Health Maintenance Due Topic Date Due ??? DTaP/Tdap/Td Immunization (1 - Tdap) Never done ??? SARS-COV-2 Immunization (1) Never done ??? Pap Smear Never done ??? Zoster Immunization (1 of 2) Never done ??? Colorectal Cancer Screening Never done ??? Influenza Immunization (1) Never done Orders Pended: yes The following BPA's have been addressed with the patient today: Colonoscopy and Smoking ITURE REFINISHER * Wali Pak MD - 10/15/2021 3:30 PM CST PROGRESS NOTE [facility] [place] [address] PHONE: [phone] FAX: [phone] 10/15/2021 NAME: Mervat M Tahir, : 1965, Assessment ASSESSMENT & PLAN: Return in about 3 months (around 01/13/2022) for anxiety. Diagnoses and all orders for this visit: Essential hypertension, benign Comments: Stable. Continue current medication Screening for colorectal cancer Comments: Will get Cologuard per patient preference Orders: - COLOGUARD Generalized anxiety disorder Comments: Stable. Continue current medication Orders: - LORazepam (ATIVAN) 0.5 MG Tablet; Take 1 Tablet by mouth daily as needed for Anxiety. Other orders - temazepam (RESTORIL) 15 MG Capsule; Take 15 mg by mouth. Follow-up in 3 months, sooner if needed Chief Complaint Patient presents with ??? High Blood Pressure 3 mo f/u ??? Medication Refill HPI Patient is here for follow-up for hypertension and other medical problems. Blood pressure has been stable. No palpitation. Anxiety has been stable. Tolerating medications well. ROS Review of systems was negative, except as documented in HPI PHYSICAL EXAM VITALS: Wt Readings from Last 3 Encounters: 10/15/21 240 lb (108.9 kg) 07/02/21 243 lb (110.2 kg) 12/13/20 242 lb (109.8 kg) Temp Readings from Last 3 Encounters: 10/15/21 97.5 ??F (36.4 ??C) (Temporal) 07/02/21 97.9 ??F (36.6 ??C) (Temporal) 12/13/20 97 ??F (36.1 ??C) (Temporal) BP Readings from Last 3 Encounters: 10/15/21 124/72 07/02/21 136/78 12/13/20 130/72 Pulse Readings from Last 3 Encounters: 10/15/21 76 07/02/21 82 12/13/20 66 Physical Exam Vitals and nursing note [...] ??? buPROPion (WELLBUTRIN) 100 MG Tablet ??? ruuiygfphm-dtrqjksigtoba-wwbjtngf (FIORICET, ESGIC) 50-325-40 MG Tablet ??? furosemide (LASIX) 20 MG Tablet ??? LORazepam (ATIVAN) 0.5 MG Tablet ??? metoprolol Succinate (TOPROL-XL) 50 MG TABLET SR 24 HR ??? rOPINIRole (REQUIP) 0.25 MG Tablet ??? temazepam (RESTORIL) 15 MG Capsule I educated Mervat regarding diagnoses and plan of care. She verbalizes understanding and will callthe office if situation changes. Voice recognition software was utilized in this dictation. Despite proof reading, typographical errors and/or content errors may have occurred. By: Wali Pak MD 10/15/2021 3:41 PM FURNITURE REFINISHER ITURE REFINISHER documented in this encounter Plan of Treatment Upcoming Encounters Date Type Department Care Team (Late st Contact Info) Description 02/05/2025 8:00 AM CDT Office Visit [facility] - [place] [address] [place] [address] Wali Pak MD [address] [place] [address] documented as of this encounter Procedures Procedure Name Priority Date/Time Associated Diagnosis Comments COLOGUARD Routine 10/22/2021 5:00 PM FURNITURE REFINISHER Screening for colorectal cancer documented in this encounter Results * COLOGUARD (10/22/2021 5:00 PM FURNITURE REFINISHER) Cologuard Negative Negative [facility] Comment: NEGATIVE TEST RESULT. A negative [...] Silveira et al, N Engl J Med 2014;370(14):1288-5855) The normal value (reference range) for this assay is negative. COLOGUARD RE-SCREENING RECOMMENDATION: Periodic colorectal cancer screening is an important part of preventive healthcare for asymptomatic individuals at average risk for colorectal cancer. ??Following a negative Cologuard result, the [place] [employer] Society and U.S. Multi-Society Task Force screening guidelines recommend a Cologuard re-screening interval of 3 years. References: [place] [employer] Guideline for Colorectal Cancer Screening: https://www.cancer.org/cancer/vhtor-kmhokf-almjlf/pusowrrwr-nkuihvasn-ljaaztx/ acs-recommendations.html.; Markos PASTOR, Gricelda CASTLE, Gualberto CaliK, Colorectal Cancer Screening: Recommendations for Physicians and Patients from the U.S. Multi-Society Task Force on Colorectal Cancer Screening , Am J Gastroenterology 2017; 112:0312-0727. TEST DESCRIPTION: Composite algorithmic analysis of stool [...] Estrada. et al, N Engl J Med 2014;370(14):4312-6959.) Cologuard may produce a false negative or false positive result (no colorectal cancer or precancerous polyp present at colonoscopy follow up). A negative Cologuard test result does not guarantee the absence of CRC or advanced adenoma (pre-cancer). The current Cologuard screening interval is every 3 years. ([place] [employer] Society and U.S. Multi-Society Task Force). Cologuard performance data in a 10,000 patient pivotal study using colonoscopy as the reference method can be accessed at the following location: www.[employer]/results. Additional description of the Cologuard test process, warnings and precautions can be found at www.cologuard.com. Stool 10/22/2021 5:00 PM FURNITURE REFINISHER 10/24/2021 9:08 AM FURNITURE REFINISHER us Wali Pak MD BODY FLUIDS & STOOLS ORDERA BLES Final Result [employer] [address] [place] [address], [employer] [address] [place] [address] documented in this encounter Visit Diagnoses Diagnosis Essential hypertension, benign- Primary Screening for colorectal cancer Special screening for malignant neoplasms, colon Generalized anxiety disorder documented in this encounter Additional Health Concerns Assessment Noted Time PHQ-9 Depression Total Score: 0 02/19/20 21 9:00 AM FURNITURE REFINISHER documented as of this encounter Care Teams Guest Services Agent Relationship Specialty Start Date End Date Wali Pak MD [address] [place] [address] PCP - General Internal Medicine 12/30/15 documented as of this encounter
--- OUTSIDE RECORDS SUMMARY | 2024-10-13 16:08 | XMS_ITS | Encounter Summary ---
Author Organization [facility] [employer] Care Team Providers Care News Videographer Name Role Phone Wali Pak MD Primary Care Provider Encounter Details Date Type Department Care Team (Latest Contact Info) Description 10/31/2021 Travel Social History Tobacco Use Types Packs/Day [...] COVID-19? No / Unsure 10/31/2021 9:12 AM PATIENTS TRANSPORTER documented as of this encounter Plan of Treatment Upcoming Encounters Date Type Department Care Team (Late st Contact Info) Description 02/05/2025 8:00 AM CDT Office Visit [facility] Medical Group - Internal Medicine - [place] [address] [place] [address] Wali Pak MD [address] [facility] [place] [address] documented as of this encounter Visit Diagnoses Not on filedocumented in this encounter Additional Health Concerns Infection Onset Date Last Indicated Resolved Time COVID - 19 10/31/2021 10/31/2021 11/20/2021 12:1 6 AM PATIENTS TRANSPORTER COVID - 19 Confirmed 10/31/2021 10/31/2021 022 12:16 AM PATIENTS TRANSPORTER Assessment Noted Time PHQ-9 Depression Total Score: 0 12/13/19 21 9:00 AM PATIENTS TRANSPORTER documented as of this encounter Care Teams News Videographer Relationship Specialty Start Date End Date Wali Pak MD [address] [place] [address] PCP - General Internal Medicine 12/30/15 documented as of this encounter
--- OUTSIDE RECORDS SUMMARY | 2024-10-13 16:08 | XMS_ITS | Encounter Summary ---
Author Organization [facility] Address [address] [facility] [place] [address] Phone Care Team Providers Care Box Feeder Name Role Phone Wali Pak MD Primary Care Provider Reason for Visit * Reason Comments Medication Refill Encounter Details Date Type Department Care Team (Late st Contact Info) Description 11/03/2021 Refill [facility] Admitting [address] [place] [phone] Wali Pak MD [address] [place] [address] Medication Refill Social History Tobacco Use Types [...] COVID-19? No / Unsure 10/31/2021 9:12 AM CARDIAC CATH TECHNOLOGIST documented as of this encounter Miscellaneous Notes * Telephone Encounter - Fernanda Devine RN - 11/03/2021 9:04 AM CST Please review and sign. IAC CATH TECHNOLOGIST documented in this encounter Plan of Treatment Upcoming Encounters Date Type Department Care Team (Late st Contact Info) Description 02/05/2025 8:00 AM CDT [facility] - [facility] [place] [address] [place] [address] Wali Pak MD [address] [place] [address] documented as of this encounter Visit Diagnoses Not on filedocumented in this encounter Additional Health Concerns Infection Onset Date Last Indicated Resolved Time COVID - 19 10/31/2021 10/31/2021 11/20/2021 12:1 6 AM CARDIAC CATH TECHNOLOGIST COVID - 19 Confirmed 10/31/2021 10/31/2021 022 12:16 AM CARDIAC CATH TECHNOLOGIST Assessment Noted Time PHQ-9 Depression Total Score: 0 12/13/19 21 9:00 AM CARDIAC CATH TECHNOLOGIST documented as of this encounter Care Teams Box Feeder Relationship Specialty Start Date End Date Wali Pak MD [address] [place] [address] PCP - General Internal Medicine 12/30/15 documented as of this encounter
--- OUTSIDE RECORDS SUMMARY | 2024-10-13 16:08 | XMS_ITS | Encounter Summary ---
Author Organization [facility] Address [address] [facility] [place] [address] Phone Care Team Providers Care Field Project Manager Name Role Phone Wali Pak MD Primary Care Provider Reason for Visit * Reason Comments Medication Refill Encounter Details Date Type Department Care Team (Late st Contact Info) Description 10/02/2022 Refill [facility] - [facility] [address] [place] [address] Wali Pak MD [address] [facility] [place] [address] Medication Refill Social History Tobacco [...] Telephone Encounter - Fernanda Devine RN - 10/02/2022 7:56 AM CST Medication(s) refilled and signed per [facility] Chronic Medication Refill Standing Order for Pediatricand Adult Patients. Requested Prescriptions Pending Prescriptions Disp Refills ??? furosemide (LASIX) 20 MG Tablet [Pharmacy Med Name: FUROSEMIDE 20 MG TABLET] 90 Tablet 0 Sig: TAKE 1 TABLET BY MOUTH DAILY NEEDED (SWELLING). Diuretics Protocol Passed - 10/02/2022 1:13 AM Passed - Serum potassium on record [...] Clinician-entered: BP Readings from Last 3 Encounters: 08/10/22 118/70 07/07/22 122/74 01/19/22 116/68 Patient-entered: No data recorded Passed - Visit with relevant provider in past 12 months or upcoming 90 days Recent Visits Date Type Provider Dept 08/10/22 [facility] 07/07/22 Office Visit Wali Pak MD [facility] 01/19/22 Office Visit Wali Pak MD [facility] 10/15/21 Office Visit Wali Pak MD [facility] Showing recent visits within past 365 days and meeting all other requirements Future Appointments Date Type Provider Dept 10/12/22 Appointment Wali Pak MD [facility] Showing future appointments within next 90 days and meeting all other requirements Passed - GFR on record in past 12 months GFR, EST. NONAFRICAN Date Value Ref Range Status 07/08/2022 >60 >=60 Final IANCE WORKER documented in this encounter Plan of Treatment Upcoming Encounters Date Type Department Care Team (Late st Contact Info) Description 02/05/2025 8:00 AM CDT [facility] - [facility] - [facility] [address] [place] [address] Wali Pak MD [address] [place] [address] documented as of this encounter Visit Diagnoses Not on filedocumented in this encounter Additional Health Concerns Assessment Noted Time PHQ-9 Depression Total Score: 3 01/20/20 22 9:00 AM CDT documented as of this encounter Care Teams Field Project Manager Relationship Specialty Start Date End Date Wali Pak MD [address] [place] [address] PCP - General Internal Medicine 12/30/15 documented as of this encounter
--- OUTSIDE RECORDS SUMMARY | 2024-10-13 16:08 | XMS_ITS | Encounter Summary ---
Author Organization [facility] Address [address] [facility] [place] [address] Phone Care Team Providers Care Harvest Field Ticketer Name Role Phone Wali Pak MD Primary Care Provider Reason for Visit * Reason Comments Medication Refill Encounter Details Date Type Department Care Team (Late st Contact Info) Description 03/26/2022 Refill [facility] Admitting [address] [place] [phone] Wali Pak MD [address] [place] [address] Medication Refill Social History Tobacco Use Types [...] Telephone Encounter - Fernanda Devine RN - 03/26/2022 8:55 AM CDT Medication failed the protocol, provider [...] Description 02/05/2025 8:00 AM CDT Office Visit [facility] Medical Group - Internal Medicine [place] [address] [place] [address] Wali Pak MD [address] [place] [address] documented as of this encounter Visit Diagnoses Not on filedocumented in this encounter Additional Health Concerns Assessment Noted Time PHQ-9 Depression Total Score: 3 01/20/20 22 9:00 AM CDT documented as of this encounter Care Teams Harvest Field Ticketer Relationship Specialty Start Date End Date Wali Pak MD [address] [place] [address] PCP - General Internal Medicine 12/30/15 documented as of this encounter
--- OUTSIDE RECORDS SUMMARY | 2024-10-13 16:08 | XMS_ITS | Encounter Summary ---
Author Organization [facility] Address [address] [facility] [place] [address] Phone Care Team Providers Care General Adjuster Name Role Phone Wali Pak MD Primary Care Provider Reason for Visit * Reason Comments Medication Refill Encounter Details Date Type Department Care Team (Late st Contact Info) Description 10/15/2022 Refill [facility] Admitting [address] [place] [phone] Wali Pak MD [address] [place] [address] Medication Refill Social History Tobacco Use Types [...] Telephone Encounter - Fernanda Devine RN - 10/15/2022 10:29 AM RETAIL SECURITY PROFESSIONAL Medication failed the protocol, provider to review and approve the medication order if appropriate. Requested Prescriptions Pending Prescriptions Disp Refills buPROPion (WELLBUTRIN) 100 MG Tablet [Pharmacy Med Name: BUPROPION HCL 100 MG TABLET] 30 Tablet 0 Sig: TAKE 1/2 TABLET BY MOUTH TWO TIMES A DAY There is no refill protocol information for this order [place] SECURITY PROFESSIONAL documented in this encounter Plan of Treatment Upcoming Encounters Date Type Department Care Team (Late st Contact Info) Description 02/05/2025 8:00 AM CDT [facility] [place] [address] [place] [address] Wali Pak MD [address] [place] [address] documented as of this encounter Visit Diagnoses Not on filedocumented in this encounter Additional Health Concerns Assessment Noted Time PHQ-9 Depression Total Score: 3 01/20/20 22 9:00 AM CDT documented as of this encounter Care Teams General Adjuster Relationship Specialty Start Date End Date Wali Pak MD [address] [place] [address] PCP - General Internal Medicine 12/30/15 documented as of this encounter
--- OUTSIDE RECORDS SUMMARY | 2024-10-13 16:08 | XMS_ITS | Encounter Summary ---
Author Organization [facility] [employer] Care Team Providers Care Supply Service Worker Name Role Phone Wali Pak MD Primary Care Provider Encounter Details Date Type Department Care Team (Latest Contact Info) Description 08/10/2022 Travel Social History Tobacco Use Types Packs/Day [...] CENTER Medical Group - Internal Medicine - [place] [address] [place] [address] Wali Pak MD [address] [place] [address] documented as of this encounter Visit Diagnoses Not on filedocumented in this encounter Additional Health Concerns Assessment Noted Time PHQ-9 Depression Total Score: 3 01/20/20 22 9:00 AM CDT documented as of this encounter Care Teams Supply Service Worker Relationship Specialty Start Date End Date Wali Pak MD [address] [place] [address] PCP - General Internal Medicine 12/30/15 documented as of this encounter
--- OUTSIDE RECORDS SUMMARY | 2024-10-13 16:08 | XMS_ITS | Encounter Summary ---
Author Organization [facility] Address [address] [facility] [place] [address] Phone Care Team Providers Care Telecommunication Systems Designer Name Role Phone Wali Pak MD Primary Care Provider Encounter Details Date Type Department Care Team (Late st Contact Info) Description 11/03/2021 Telephone [facility] Internal [facility] - [place] [address] [place] [address] Wali Pak MD [address] [facility] [place] [address] Social History Tobacco Use Types [...] COVID-19? No / Unsure 10/31/2021 9:12 AM RUBBER GOODS TESTER documented as of this encounter Miscellaneous Notes * Telephone Encounter - Norma Stratton RMA - 11/04/2021 1:01 PM RUBBER GOODS TESTER Called and spoke to patient gave results she was in full understandings . ER GOODS TESTER * Telephone Encounter - Fernanda Devine RN - 11/03/2021 8:50 AM CST ----- Message from Wali Pak MD sent at 11/03/2021 8:38 AM RUBBER GOODS TESTER ----- Cologuard- negative. Rpt in 3 years ER GOODS TESTER documented in this encounter Plan of Treatment Upcoming Encounters Date Type Department Care Team (Late st Contact Info) Description 02/05/2025 8:00 AM CDT [facility] - [place] [address] [place] [address] Wali Pak MD [address] [place] [address] documented as of this encounter Visit Diagnoses Not on filedocumented in this encounter Additional Health Concerns Infection Onset Date Last Indicated Resolved Time COVID - 19 10/31/2021 10/31/2021 11/20/2021 12:1 6 AM RUBBER GOODS TESTER COVID - 19 Confirmed 10/31/2021 10/31/2021 022 12:16 AM RUBBER GOODS TESTER Assessment Noted Time PHQ-9 Depression Total Score: 0 12/13/19 21 9:00 AM RUBBER GOODS TESTER documented as of this encounter Care Teams Telecommunication Systems Designer Relationship Specialty Start Date End Date Wali Pak MD [address] [place] [address] PCP - General Internal Medicine 12/30/15 documented as of this encounter
--- OUTSIDE RECORDS SUMMARY | 2024-10-13 16:08 | XMS_ITS | Encounter Summary ---
Author Organization [facility] [employer] Care Team Providers Care Brake Liner Name Role Phone Wali Pak MD Primary Care Provider Encounter Details Date Type Department Care Team (Latest Contact Info) Description 07/07/2022 Travel Social History Tobacco Use Types Packs/Day [...] Description 02/05/2025 8:00 AM CDT Office Visit [facility] Medical Group - Internal Medicine - [place] [address] [place] [address] Wali Pak MD [address] [place] [address] documented as of this encounter Visit Diagnoses Not on filedocumented in this encounter Additional Health Concerns Assessment Noted Time PHQ-9 Depression Total Score: 3 01/20/20 22 9:00 AM CDT documented as of this encounter Care Teams Brake Liner Relationship Specialty Start Date End Date Wali Pak MD [address] [place] [address] PCP - General Internal Medicine 12/30/15 documented as of this encounter
--- OUTSIDE RECORDS SUMMARY | 2024-10-13 16:08 | XMS_ITS | Encounter Summary ---
Author Organization [facility] Address [address] [facility] [place] [address] Phone Care Team Providers Care Perioperative Assistant Name Role Phone Wali Pak MD Primary Care Provider [phone] Reason for Visit * Reason Comments Medication Refill Encounter Details Date Type Department Care Team (Late st Contact Info) Description 01/10/2023 Refill [facility] - [place] [address] [place] [address] Wali Pak MD [address] [facility] [address] Medication Refill Social History Tobacco [...] Telephone Encounter - Enedelia Damon RN - 01/11/2023 8:28 AM CDT Medication failed the protocol, provider to review and approve the medication order if appropriate. Requested Prescriptions Pending Prescriptions Disp Refills buPROPion (WELLBUTRIN) 100 MG Tablet [Pharmacy Med Name: BUPROPION HCL 100 MG TABLET] 30 Tablet 0 Sig: TAKE 1/2 TABLET BY MOUTH TWO TIMES A DAY Bupropion (6 Month Refill Only) Protocol Failed - 01/10/2023 8:01 AM Failed - Has an encounter in the past 6 months with a depression or anxiety visit diagnosis Passed - Visit with relevant provider in past 6 months or upcoming 90 days Recent Visits Date Type Provider Dept 08/10/22 Office Visit Wali Pak MD [facility] [place] Showing recent visits within past 182 days and meeting all other requirements Future Appointments No visits were found meeting these conditions. Showing future appointments within next 90 days and meeting all other requirements Passed - Patient has established therapy with Bupropion for at least 6 months documented in this encounter Plan of Treatment Upcoming Encounters Date Type Department Care Team (Late st Contact Info) Description 02/05/2025 8:00 AM CDT [facility] Visit [facility] [address] [place] [address] Wali Pak MD [address] [place] [address] documented as of this encounter Visit Diagnoses Not on filedocumented in this encounter Additional Health Concerns Assessment Noted Time PHQ-9 Depression Total Score: 3 01/20/20 22 9:00 AM CDT documented as of this encounter Care Teams Perioperative Assistant Relationship Specialty Start Date End Date Wali Pak MD [address] [place] [address] PCP - General Internal Medicine 12/30/15 documented as of this encounter
--- OUTSIDE RECORDS SUMMARY | 2024-10-13 16:08 | XMS_ITS | Encounter Summary ---
Author Organization [facility] Address [address] [facility] [place] [address] Phone Care Team Providers Care Operations Forester Name Role Phone Wali Pak MD Primary Care Provider Reason for Visit * Reason Onset Date Comments Results 01/21/2022 Encounter Details Date Type Department Care Team (Late st Contact Info) Description 01/21/2022 Telephone [facility] [address] [place] [address] Wali Pak MD [address] [place] [address] Results Social History Tobacco Use [...] Encounter - Fernanda Devine RN - 01/21/2022 9:29 AM CDT MyChart message sent. * Telephone Encounter - Fernanda Devine RN - 01/21/2022 9:19 AM CDT ----- Message from Wali Pak MD sent at 01/21/2022 8:30 AM CDT ----- Cmp- okay TFT, HbA1c- okay Lipids- mildly elevated. Needs to be on low chol. Diet Vit-D level - low. Need to take otc Vit D3 1000 units daily documented in this encounter Plan of Treatment Upcoming Encounters Date Type Department Care Team (Late st Contact Info) Description 02/05/2025 8:00 AM CDT Office Visit [facility] Group - Internal Medicine [place] [address] [place] [phone] Wali Pak MD [address] [place] [address] documented as of this encounter Visit Diagnoses Not on filedocumented in this encounter Additional Health Concerns Assessment Noted Time PHQ-9 Depression Total Score: 3 01/20/20 22 9:00 AM CDT documented as of this encounter Care Teams Operations Forester Relationship Specialty Start Date End Date Wali Pak MD [address] [place] [address] PCP - General Internal Medicine 12/30/15 documented as of this encounter
--- OUTSIDE RECORDS SUMMARY | 2024-10-13 16:08 | XMS_ITS | Encounter Summary ---
Author Organization [facility] Address [address] [facility] [place] [address] Phone Care Team Providers Care Manager Agricultural Name Role Phone Wali Pak MD Primary Care Provider Reason for Visit * Reason Comments Medication Refill Encounter Details Date Type Department Care Team (Late st Contact Info) Description 11/11/2022 Refill [facility] Internal [facility] - [place] [address] [place] [address] Wali Pak MD [address] [facility] [place] [address] Medication Refill Social History Tobacco [...] Telephone Encounter - Enedelia Damon RN - 11/11/2022 8:16 AM CST Medication(s) [facility] Ref[facility] Standing Order for Pediatricand Adult Patients. Requested Prescriptions Pending Prescriptions Disp Refills ??? rOPINIRole (REQUIP) 0.25 MG Tablet [Pharmacy Med Name: ROPINIROLE HCL 0.25 MG TABLET] 30 Tablet3 Sig: TAKE 1 TABLET BY MOUTH NIGHTLY Antiparkinson Dopaminergics and COMT Protocol Passed - 11/11/2022 12:35 AM Passed - Visit with relevant provider in the past 9 months or upcoming 90 days Recent Visits Date Type Provider Dept 08/10/22 Office Visit Wali Pak MD [facility] [place] 07/07/22 Office Visit Wali Pak MD [facility] Showing recent visits within past 270 days and meeting all other requirements Future Appointments No visits were found meeting these conditions. 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 TEACHER documented in this encounter Plan of Treatment Upcoming Encounters Date Type Department Care Team (Late st Contact Info) Description 02/05/2025 8:00 AM CDT Office Visit [facility] - Internal Medicine - [place] [address] [place] [phone] Wali Pak MD [address] [place] [address] documented as of this encounter Visit Diagnoses Not on filedocumented in this encounter Additional Health Concerns Assessment Noted Time PHQ-9 Depression Total Score: 3 01/20/20 9:00 AM CDT documented as of this encounter Care Teams Manager Agricultural Relationship Specialty Start Date End Date Wali Pak MD [address] [place] [address] PCP - General Internal Medicine 12/30/15 documented as of this encounter
--- OUTSIDE RECORDS SUMMARY | 2024-10-13 16:09 | XMS_ITS | Encounter Summary ---
Author Organization [facility] Address [address] [facility] [place] [address] Phone Care Team Providers Care Business And Services Instructor Name Role Phone Wali Pak MD Primary Care Provider Reason for Visit * Reason Comments Medication Refill Encounter Details Date Type Department Care Team (Late st Contact Info) Description 05/31/2021 Refill [facility] Internal [facility] - [place] [address] [place] [phone] Tereza Lujan, PAC [address] [place] [address] Medication Refill Social History Tobacco Use Types [...] Telephone Encounter - Fernanda Devine RN - 06/02/2021 11:32 AM CDT Please review and sign. documented in this encounter Plan of Treatment Upcoming Encounters Date Type Department Care Team (Late st Contact Info) Description 02/05/2025 8:00 AM CDT [facility] Visit [facility] - [place] [address] [place] [address] Wali Pak MD [address] [place] [address] documented as of this encounter Visit Diagnoses Not on filedocumented in this encounter Additional Health Concerns Assessment Noted Time PHQ-9 Depression Total Score: 0 12/13/19 21 9:00 AM METEOROLOGICAL AIDE documented as of this encounter Care Teams Business And Services Instructor Relationship Specialty Start Date End Date Wali Pak MD [address] [place] [address] PCP - General Internal Medicine 12/30/15 documented as of this encounter
--- OUTSIDE RECORDS SUMMARY | 2024-10-13 16:09 | XMS_ITS | Encounter Summary ---
Author Organization [facility] Address [address] [facility] [place] [address] Phone Care Team Providers Care Systems Architecture Analyst Name Role Phone Wali Pak MD Primary Care Provider Encounter Details Date Type Department Care Team (Late st Contact Info) Description 12/13/2020 Refill [facility] Internal [facility] - [place] [address] [place] [address] Wali Pak MD [address] [facility] [place] [address] Social History Tobacco Use Types Packs/Day Years [...] have Coronavirus / COVID-19? No / Unsure 12/13/2020 9:36 AM APPLICATION ASSISTANT documented as of this encounter Miscellaneous Notes * Telephone Encounter - Fernanda Devine RN - 12/13/2020 2:03 PM CST ----- Message from January sent at 12/13/2020 1:12 PM APPLICATION ASSISTANT ----- Regarding: PATIENT MEDICAL QUESTION Refill request Medication: Furosemide Pharmacy: [id number] [place] [address] Call back # [phone] ICATION ASSISTANT documented in this encounter Plan of Treatment Upcoming Encounters Date Type Department Care Team (Late st Contact Info) Description 02/05/2025 8:00 AM CDT Office Visit [facility] - Internal Medicine [place] [address] [place] [phone] Wali Pak MD [address] [place] [address] documented as of this encounter Visit Diagnoses Not on filedocumented in this encounter Additional Health Concerns Assessment Noted Time PHQ-9 Depression Total Score: 0 12/13/19 21 9:00 AM APPLICATION ASSISTANT documented as of this encounter Care Teams Systems Architecture Analyst Relationship Specialty Start Date End Date Wali Pak MD [address] [place] [address] PCP - General Internal Medicine 12/30/15 documented as of this encounter
--- OUTSIDE RECORDS SUMMARY | 2024-10-13 16:09 | XMS_ITS | Encounter Summary ---
Author Organization [facility] Address [address] [facility] [place] [address] Phone Care Team Providers Care Harness Puller Name Role Phone Wali Pak MD Primary Care Provider Reason for Visit * Reason Comments Medication Refill Encounter Details Date Type Department Care Team (Late st Contact Info) Description 07/29/2020 Refill [facility] - [place] [address] [place] [address] Wali Pak MD [address] [facility] [place] [address] Medication Refill Social History Tobacco Use Types Packs/Day Years Used Date Smoking Tobacco: Some Days Cigarettes 0.3 3 Smokeless Tobacco: Never Comments:social Alcohol Use Standard Drinks/Week Comments Yes 0 (1 standard drink = 0.6 oz pur e alcohol) social Comments No Sex and Gender Information Value Date Recorded Sex Assigned at Not on file Legal Sex Female 8:43 PM CDT Gender Identity Not on file Sexual Orientation Not on file 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 Not on file Not on file Not on file documented as of this encounter Miscellaneous Notes * Telephone Encounter - Katie Guerrero RN - 07/29/2020 3:55 PM CDT Pended to PCP documented in this encounter Plan of Treatment Upcoming Encounters Date Type Department Care Team (Late st Contact Info) Description 02/05/2025 8:00 AM CDT Office Visit [facility] - [facility] - [place] [address] [place] [address] Wali Pak MD [address] [place] [address] documented as of this encounter Visit Diagnoses Not on filedocumented in this encounter Additional Health Concerns Infection Onset Date Last Indicated Resolved Time COVID - 19 12/03/2020 12/03/2020 12/04/2020 2:47 PM BROADCAST OPERATIONS DIRECTOR COVID - 19 10/31/2021 10/31/2021 11/20/2021 12:1 6 AM BROADCAST OPERATIONS DIRECTOR COVID - 19 Confirmed 10/31/2021 10/31/2021 022 12:16 AM BROADCAST OPERATIONS DIRECTOR documented as of this encounter Care Teams Harness Puller Relationship Specialty Start Date End Date Wali Pak MD [address] [place] [address] PCP - General Internal Medicine 12/30/15 documented as of this encounter
--- OUTSIDE RECORDS SUMMARY | 2024-10-13 16:09 | XMS_ITS | Encounter Summary ---
Author Organization [facility] Address [address] [facility] [place] [address] Phone Care Team Providers Care Harness Brusher Name Role Phone Wali Pak MD Primary Care Provider Reason for Visit * Reason Comments Medication Refill Encounter Details Date Type Department Care Team (Late st Contact Info) Description 06/29/2020 [facility]ill [facility] Admitting [address] [place] [phone] Wali Pak MD [address] [place] [address] Medication Refill Social History Tobacco Use Types [...] Telephone Encounter - Fernanda Devine RN - 07/02/2020 8:13 AM CDT Please review and sign. documented in this encounter Plan of Treatment Upcoming Encounters Date Type Department Care Team (Late st Contact Info) Description 02/05/2025 8:00 AM CDT Office Visit [facility] - Internal Medicine - [place] [address] [place] [address] Wali Pak MD [address] [place] [address] documented as of this encounter Visit Diagnoses Not on filedocumented in this encounter Additional Health Concerns Infection Onset Date Last Indicated Resolved Time COVID - 19 12/03/2020 12/03/2020 12/04/2020 2:47 PM STICK PULLER COVID - 19 10/31/2021 10/31/2021 11/20/2021 12:1 6 AM STICK PULLER COVID - 19 Confirmed 10/31/2021 10/31/2021 022 12:16 AM STICK PULLER documented as of this encounter Care Teams Harness Brusher Relationship Specialty Start Date End Date Wali Pak MD [address] [place] [address] PCP - General Internal Medicine 12/30/15 documented as of this encounter
--- OUTSIDE RECORDS SUMMARY | 2024-10-13 16:09 | XMS_ITS | Encounter Summary ---
Author Organization [facility] [employer] Care Team Providers Care Malt Specifications Control Assistant Name Role Phone Wali Pak MD Primary Care Provider [phone] Encounter Details Date Type Department Care Team (Latest Contact Info) Description 09/06/2020 Travel Social History Tobacco Use Types Packs/Day [...] have Coronavirus / COVID-19? No / Unsure 09/06/2020 9:46 AM SCIENTIFIC SPECIALIST documented as of this encounter Plan of Treatment Upcoming Encounters Date Type Department Care Team (Late st Contact Info) Description 02/05/2025 8:00 AM CDT Office Visit [facility] - Internal Medicine - [place] [address] [place] [address] Wali Pak MD [address] [place] [address] documented as of this encounter Visit Diagnoses Not on filedocumented in this encounter Care Teams Malt Specifications Control Assistant Relationship Specialty Start Date End Date Wali Pak MD [address] [place] [address] PCP - General Internal Medicine 12/30/15 documented as of this encounter
--- OUTSIDE RECORDS SUMMARY | 2024-10-13 16:09 | XMS_ITS | Encounter Summary ---
Author Organization [facility] Address [address] [facility] [place] [address] Phone Care Team Providers Care Drum Sander Name Role Phone Wali Pak MD Primary Care Provider Reason for Visit * Reason Comments Medication Refill Encounter Details Date Type Department Care Team (Late st Contact Info) Description 05/06/2021 Refill [facility] - [place] [address] [place] [address] Wali Pak MD [address] [facility] [place] [address] Medication Refill Social History Tobacco [...] Telephone Encounter - Fernanda Devine RN - 05/06/2021 9:18 AM CDT Medication(s) refilled and signed per [facility] Chronic Medication Refill Standing Order for Pediatricand Adult Patients. Requested Prescriptions Pending Prescriptions Disp Refills ??? metoprolol Succinate (TOPROL-XL) 50 MG TABLET SR 24 HR [Pharmacy Med Name: METOPROLOL SUCC ER 50 MG TAB] 45 Tablet 2 Sig: TAKE 1 TABLET BY MOUTH EVERY MORNING AND 1/2 TABLET IN THE IN THE EVENING (DOSE INCREASE) Beta-Blockers Protocol Passed - 05/06/2021 12:39 AM Passed - BP on record in the past year Clinician-entered: BP Readings from Last 3 Encounters: 12/13/20 130/72 11/14/18 155/90 12/27/17 146/67 Patient-entered: No data recorded Passed - Visit with relevant provider in past 12 months or upcoming 90 days Recent Visits Date Type Provider Dept 12/13/20 Office Visit Wali Pak MD [facility] 10/07/20 Telemedicine Wali Pak MD [facility] 09/23/20 Telemedicine Wali Pak MD [facility] Showing recent visits within past 365 days and meeting all other requirements Future Appointments No visits were found meeting these conditions. Showing future appointments within next 90 days and meeting all other requirements documented in this encounter Plan of Treatment Upcoming Encounters Date Type Department Care Team (Late st Contact Info) Description 02/05/2025 8:00 AM CDT Office Visit [facility] - Internal Medicine - [place] [address] [place] [address] Wali Pak MD [address] [place] [address] documented as of this encounter Visit Diagnoses Not on filedocumented in this encounter Additional Health Concerns Assessment Noted Time PHQ-9 Depression Total Score: 0 12/13/19 9:00 AM BIODIESEL PRODUCTION TECHNICIAN documented as of this encounter Care Teams Drum Sander Relationship Specialty Start Date End Date Wali Pak MD [address] [place] [address] PCP - General Internal Medicine 12/30/15 documented as of this encounter
--- OUTSIDE RECORDS SUMMARY | 2024-10-13 16:09 | XMS_ITS | Encounter Summary ---
Author Organization [facility] Address [address] [facility] [place] [address] Phone Care Team Providers Care Account Liaison Name Role Phone Wali Pak MD Primary Care Provider Encounter Details Date Type Department Care Team (Late st Contact Info) Description 12/03/2020 1:30 PM SILVER BRAZER Lab [facility] - [place] [address] [place] [address] [facility] Nurse [place] COVID-19 (Primary Dx) Discharge Disposition: Discharged to home [...] have Coronavirus / COVID-19? No / Unsure 12/03/2020 1:58 PM SILVER BRAZER documented as of this encounter Progress Notes * Fernanda Devine RN - 12/03/2020 1:30 PM CST Patient was directed to come to [facility] for Covid-19 testing. Patient was instructed to stay in the vehicle for testing. Donned appropriate PPE for collection of specimen. Deep Nasal specimen collected, patient tolerated well. Patient education provided on self-quarantine instructions. PCR test written due to Rapid being negative. Patient is aware of the negative results and is awaiting the results of the PCR. ER BRAZER documented in this encounter Plan of Treatment Upcoming Encounters Date Type Department Care Team (Late st Contact Info) Description 02/05/2025 8:00 AM CDT Office Visit [facility] Group - Internal Medicine - [place] [address] [place] [address] Wali Pak MD [address] [place] [address] documented as of this encounter Procedures Procedure Name Priority Date/Time Associated Diagnosis Comments SARS-COV-2 BY MOLECULAR Routine 12/04/2020 11:55 AM SILVER BRAZER COVID-19 POCT SARS ANTIGEN PB Routine 12/03/2020 COVID-19 documented in this encounter Results * SARS-COV-2 BY MOLECULAR (12/04/2020 11:55 AM SILVER BRAZER) SARSCOV2 NOT DETECTED (Referen ce Range for this test is Not Detected ) [facility] THERMOFISHER FAST DX 12/05/2020 11:39 AM SILVER BRAZER [facility] Comment:This test was perfor med by a PCR method. Other NASOPHARYNGEAL STRUCTURE / Unknown Non-Phlebotomy Collection / Unknown 12/04/2020 11:55 AM SILVER BRAZER 12/04/2020 12:35 PM SILVER BRAZER Narrative [facility] - 12/05/2020 11:39 AM SILVER BRAZER Authorized Fact Sheets about this test for providers and patients are available at: https://www.fda.gov/medical-devices/tdzfcugoj-vwilbnyhzr-ddgqvrl-devices/emergen -us e-authorizations us Wali Pak MD MICROBIOLOGY - GENERAL RADHA LEIVA Final Result [facility] [address] [place] [address], [place] * POCT SARS ANTIGEN PB (12/03/2020) POC SARS ANTIGEN PB Negative Negative POC SARS ANTIGEN PB CONTROL Ware Server Pass Swab NASAL STRUCTURE / Unknown 12/03/2020 Wali Pak MD POINT OF CARE TESTING (MANU AL) Final Result documented in this encounter Visit Diagnoses Diagnosis COVID-19- Primary documented in this encounter Additional Health Concerns Infection Onset Date Last Indicated Resolved Time COVID - 19 12/03/2020 12/03/2020 12/04/2020 2:47 PM SILVER BRAZER documented as of this encounter Care Teams Account Liaison Relationship Specialty Start Date End Date Wali Pak MD [address] [place] [address] PCP - General Internal Medicine 12/30/15 documented as of this encounter
--- OUTSIDE RECORDS SUMMARY | 2024-10-13 16:09 | XMS_ITS | Encounter Summary ---
Author Organization [facility] Address [address] [place] [address] Phone Care Team Providers Care Cleaner Housekeeping Name Role Phone Wali Pak MD Primary Care Provider Reason for Visit * Reason Comments Hypothyroid Encounter Details Date Type Department Care Team (Late st Contact Info) Description 10/07/2020 3:15 PM FURNACE UNLOADER Telemedicine [facility] Medicine [facility] [address] [place] [address] Wali Pak MD [address] [facility] [place] [address] Other specified hypothyroidism (Primary Dx); Paroxysmal atrial flutter (HCC); Generalized anxiety disorder Social History Tobacco Use Types Packs/Day Years [...] as of this encounter Progress Notes * Wali Pak MD - 10/07/2020 3:15 PM CST PROGRESS NOTE [facility] MEDIC[facility] [address] [place] [address] 10/07/2020 Mervat Haro 1965 Chief Complaint Patient presents with ??? Hypothyroid Patient had follow-up visit for hypothyroidism another medical problem. Recently seen by flat machine cutter for follow-up for paroxysmal atrial fibrillation. She has been asymptomatic. She would like to discontinue Eliquis. Nut Sheller recommended loop recorder but patient is reluctant. Advised to discuss with flat machine cutter. She also complains of increased weight, fatigue. She has been off levothyroxine for past several months. Her last free T4 and TSH were normal. ROS Review of Systems Constitutional: Positive for fatigue and unexpected weight change. HENT: Negative. Eyes: Negative. Respiratory: Negative. Cardiovascular: Negative. Gastrointestinal: Negative. Endocrine: Negative. Genitourinary: Negative. Musculoskeletal: Negative. Skin: Negative. Allergic/Immunologic: Negative. Neurological: Negative. Hematological: Negative. Psychiatric/Behavioral: Negative. PHYSICAL EXAM Physical Exam Telephone visit Past medical, surgical, social and family history has been reviewed and updated as necessary. Medications and allergies has been reviewed and updated. Allergies Allergen Reactions ??? Latex Rash When wears latex herself ??? Penicillins Rash As a child / has had penicillin since then with no problems Patient Active Problem List Diagnosis Date Noted ??? Other specified hypothyroidism 10/07/2020 ??? Paroxysmal atrial flutter (HCC) 09/23/2020 ??? Essential hypertension, benign 09/23/2020 ??? Trigger thumb of right hand 12/27/2017 ??? Generalized anxiety disorder 09/28/2013 Current Outpatient Medications: ??? apixaban (ELIQUIS) 5 MG Tablet ??? buPROPion (WELLBUTRIN) 100 MG Tablet ??? cunfiyatwh-vultiteqnvezt-ffwefbzo (FIORICET, ESGIC) 50-325-40 MG Tablet ??? LEVOTHYROXINE SODIUM PO ??? LORazepam (ATIVAN) 0.5 MG Tablet ??? metoprolol Succinate (TOPROL-XL) 50 MG TABLET SR 24 HR Assessment ASSESSMENT & PLAN: No follow-ups on file. Diagnoses and all orders for this visit: Other specified hypothyroidism - THYROID STIMULATING HORMONE (TSH); Future - THYROXINE (T4) FREE; Future Paroxysmal atrial flutter (HCC) Generalized anxiety disorder Patient is advised to continue current medications. Advised to check free T4 and TSH and and decidewhether she needs to be on levothyroxine are not due to history of paroxysmal atrial fibrillation. Advised to continue follow-up with flat machine cutter. Patient was assessed via telephone for a duration of 12 minutes. Patient verbally consented for this service to be performed and billed. I educated Mervat regarding diagnoses and plan of care. She verbalizes understanding and will callthe office if situation changes. Voice recognition software was utilized in this dictation. Despite proof reading, typographical errors and/or content errors may have occurred. By: Wali Pak MD 10/07/2020 4:19 PM FURNACE UNLOADER ACE UNLOADER documented in this encounter Plan of Treatment Upcoming Encounters Date Type Department Care Team (Late st Contact Info) Description 02/05/2025 8:00 AM CDT [facility] Visit [facility] - [place] [address] [place] [address] Wali Pak MD [address] [place] [address] documented as of this encounter Results * THYROXINE (T4) FREE (10/21/2020) Blood Result [facility] Wali Pak MD CHEMISTRY ORDERABLES Final Result * THYROID STIMULATING HORMONE (TSH) (10/21/2020) Blood Result [facility] Wali Pak MD CHEMISTRY ORDERABLES Final Result documented in this encounter Visit Diagnoses Diagnosis Other specified hypothyroidism- Primary Paroxysmal atrial flutter (HCC) Atrial flutter Generalized anxiety disorder documented in this encounter Care Teams Cleaner Housekeeping Relationship Specialty Start Date End Date Wali Pak MD [address] [place] [address] PCP - General Internal Medicine 12/30/15 documented as of this encounter
--- OUTSIDE RECORDS SUMMARY | 2024-10-13 16:09 | XMS_ITS | Encounter Summary ---
Author Organization [facility] Address [address] [facility] [place] [address] Phone Care Team Providers Care Cash Room Clerk Name Role Phone Wali Pak MD Primary Care Provider Encounter Details Date Type Department Care Team (Late st Contact Info) Description 10/23/2020 Telephone [facility] - Internal Medicine [facility] [address] [place] [address] Wali Pak MD [address] [facility] [place] [address] Social History Tobacco Use Types [...] encounter Miscellaneous Notes * Telephone Encounter - Dayana Chapa, JOYCELYN - 10/23/2020 4:29 PM TELEVISION SPECIALIST Spoke to patient and gave normal test results. VISION SPECIALIST * Telephone Encounter - Fernanda Devine RN - 10/23/2020 12:20 PM TELEVISION SPECIALIST ----- Message from Wali Pak MD sent at 10/23/2020 11:08 AM TELEVISION SPECIALIST ----- Thyroid function test normal. Continue current medications VISION SPECIALIST documented in this encounter Plan of Treatment Upcoming Encounters Date Type Department Care Team (Late st Contact Info) Description 02/05/2025 8:00 AM CDT Office Visit [facility] - Internal Medicine [place] [address] [place] [address] Wali Pak MD [address] [place] [address] documented as of this encounter Visit Diagnoses Not on filedocumented in this encounter Care Teams Cash Room Clerk Relationship Specialty Start Date End Date Wali Pak MD [address] [place] [address] PCP - General Internal Medicine 12/30/15 documented as of this encounter
--- OUTSIDE RECORDS SUMMARY | 2024-10-13 16:09 | XMS_ITS | Encounter Summary ---
Author Organization [facility] Address [address] [facility] [place] [address] Phone Care Team Providers Care Certified Professional Controller Name Role Phone Wali Pak MD Primary Care Provider Encounter Details Date Type Department Care Team (Late st Contact Info) Description 01/17/2021 Telephone [facility] - [facility] [address] [place] [address] Wali Pak MD [address] [facility] [address] Social History Tobacco Use Types [...] Telephone Encounter - Wali Pak MD - 01/17/2021 1:17 PM CDT Ropinirole 0.25mg at bedtime rx sent. Need to see her in one month * Telephone Encounter - Dayana Chapa CMA - 01/17/2021 12:54 PM CDT Patient req RX for restless leg sydrome. Her legs are hurting really bad a night. [email or web address] [email or web address] documented in this encounter Plan of Treatment Upcoming Encounters Date Type Department Care Team (Late st Contact Info) Description 02/05/2025 8:00 AM CDT Office Visit [facility] - [facility] [address] [place] [address] Wali Pak MD [address] [place] [address] documented as of this encounter Visit Diagnoses Not on filedocumented in this encounter Additional Health Concerns Assessment Noted Time PHQ-9 Depression Total Score: 0 12/13/19 21 9:00 AM RAKING MACHINE OPERATOR documented as of this encounter Care Teams Certified Professional Controller Relationship Specialty Start Date End Date Wali Pak MD [address] [place] [address] PCP - General Internal Medicine 12/30/15 documented as of this encounter
--- OUTSIDE RECORDS SUMMARY | 2024-10-13 16:09 | XMS_ITS | Encounter Summary ---
Author Organization [facility] Address [address] [facility] [place] [address] Phone Care Team Providers Care Rug Cutter Name Role Phone Wali Pak MD Primary Care Provider Reason for Visit * Reason Comments Medication Refill Encounter Details Date Type Department Care Team (Late st Contact Info) Description 02/10/2021 Refill [facility] - Internal Medicine - [place] [address] [place] [address] Wali Pak MD [address] [facility] [place] [address] Medication Refill Social History Tobacco [...] Telephone Encounter - Fernanda Devine RN - 02/10/2021 7:48 AM CDT Please review and sign. documented in this encounter Plan of Treatment Upcoming Encounters Date Type Department Care Team (Late st Contact Info) Description 02/05/2025 8:00 AM CDT Office Visit [facility] - Internal Medicine - [place] [address] [place] [address] Wali Pak MD [address] [place] [address] documented as of this encounter Visit Diagnoses Not on filedocumented in this encounter Additional Health Concerns Assessment Noted Time PHQ-9 Depression Total Score: 0 12/13/19 21 9:00 AM FRONT DESK WORKER documented as of this encounter Care Teams Rug Cutter Relationship Specialty Start Date End Date Wali Pak MD [address] [place] [address] PCP - General Internal Medicine 12/30/15 documented as of this encounter
--- OUTSIDE RECORDS SUMMARY | 2024-10-13 16:09 | XMS_ITS | Encounter Summary ---
Author Organization [facility] Address [address] [facility] [place] [address] Phone Care Team Providers Care Airbrush Artist Technical Name Role Phone Wali Pak MD Primary Care Provider Reason for Visit * Reason Comments Medication Refill Encounter Details Date Type Department Care Team (Late st Contact Info) Description 03/26/2021 Refill [facility] - [place] [address] [place] [address] Wali Pak MD [address] [facility] [place] [address] Medication Refill Social History Tobacco [...] Telephone Encounter - Fernanda Devine RN - 03/26/2021 8:11 AM CDT Medication(s) refilled and signed per [facility] Chronic Medication Refill Standing Order for Pediatricand Adult Patients. Requested Prescriptions Pending Prescriptions Disp Refills ??? buPROPion (WELLBUTRIN) 100 MG Tablet [Pharmacy Med Name: BUPROPION HCL 100 MG TABLET] 60 Tablet0 Sig: TAKE 1 TABLET BY MOUTH TWICE A DAY Bupropion (6 Month Refill Only) Protocol Passed - 03/26/2021 12:24 AM Passed - Visit with relevant provider in past 6 months or upcoming 90 days Recent Visits Date Type Provider Dept 12/13/20 Office Visit [facility] [place] 10/07/20 Telemedicine Wali Pak MD [facility] [place] Showing recent visits within past 182 days [...] Description 02/05/2025 8:00 AM CDT Office Visit [facility] - Internal Medicine - [place] [address] [place] [id number] Wali Pak MD [address] [place] [address] documented as of this encounter Visit Diagnoses Not on filedocumented in this encounter Additional Health Concerns Assessment Noted Time PHQ-9 Depression Total Score: 0 12/13/19 9:00 AM WEB ANALYST documented as of this encounter Care Teams Airbrush Artist Technical Relationship Specialty Start Date End Date Wali Pak MD [address] [place] [address] PCP - General Internal Medicine 12/30/15 documented as of this encounter
--- OUTSIDE RECORDS SUMMARY | 2024-10-13 16:09 | XMS_ITS | Encounter Summary ---
Author Organization [facility] Address [address] [facility] [place] [address] Phone Care Team Providers Care Web Knitter Name Role Phone Wali Pak MD Primary Care Provider Reason for Visit * Reason Comments Medication Refill Encounter Details Date Type Department Care Team (Late st Contact Info) Description 03/06/2021 Refill [facility] - [place] [address] [place] [address] Wali Pak MD [address] [facility] [address] Medication Refill Social History Tobacco [...] [facility] - [place] [address] [place] [address] Wali Pak MD [address] [place] [address] documented as of this encounter Visit Diagnoses Not on filedocumented in this encounter Additional Health Concerns Infection Onset Date Last Indicated Resolved Time COVID - 19 10/31/2021 10/31/2021 11/20/2021 12:1 6 AM CAR RACER COVID - 19 Confirmed 10/31/2021 10/31/2021 022 12:16 AM CAR RACER Assessment Noted Time PHQ-9 Depression Total Score: 0 12/13/19 21 9:00 AM CAR RACER documented as of this encounter Care Teams Web Knitter Relationship Specialty Start Date End Date Wali Pak MD [address] [place] [address] PCP - General Internal Medicine 12/30/15 documented as of this encounter
--- OUTSIDE RECORDS SUMMARY | 2024-10-13 16:09 | XMS_ITS | Encounter Summary ---
Author Organization [facility] Address [address] [facility] [place] [address] Phone Care Team Providers Care Airline Manager Name Role Phone Wali Pak MD Primary Care Provider Encounter Details Date Type Department Care Team (Late st Contact Info) Description 06/16/2021 Telephone [facility] - Internal Medicine [facility] [address] [place] [address] Wali Pak MD [address] [facility] [place] [address] Social History Tobacco Use Types [...] Telephone Encounter - Wali Pak MD - 06/16/2021 8:58 AM CDT Prednisone 20mg daily for 7 days rx sent * Telephone Encounter - Fernanda Devine RN - 06/16/2021 8:49 AM CDT ----- Message from Payton Burns sent at 06/16/2021 8:44 AM CDT ----- Regarding: Poison Jana Savanna has Poison Jana all over her and would like Doctor to prescribe a medication for it. Call back number:[phone] Pharmacy - [facility] documented in this encounter Plan of Treatment Upcoming Encounters Date Type Department Care Team (Late st Contact Info) Description 02/05/2025 8:00 AM CDT Office Visit [facility] - Internal Medicine [place] [address] [place] [address] Wali Pak MD [address] [place] [address] documented as of this encounter Visit Diagnoses Not on filedocumented in this encounter Additional Health Concerns Assessment Noted Time PHQ-9 Depression Total Score: 0 12/13/19 21 9:00 AM HAIR MIXER documented as of this encounter Care Teams Airline Manager Relationship Specialty Start Date End Date Wali Pak MD [address] [place] [address] PCP - General Internal Medicine 12/30/15 documented as of this encounter
--- OUTSIDE RECORDS SUMMARY | 2024-10-13 16:09 | XMS_ITS | Encounter Summary ---
Author Organization [facility] Address [address] [facility] [place] [address] Phone Care Team Providers Care Blower Room Attendant Name Role Phone Wali Pak MD Primary Care Provider Reason for Visit * Reason Comments Medication Refill Encounter Details Date Type Department Care Team (Late st Contact Info) Description 08/27/[address] [facility] Admitting [address] [place] [phone] Wali Pak MD [address] [place] [address] Medication Refill Social History Tobacco Use Types [...] Telephone Encounter - Fernanda Devine RN - 08/27/2020 9:11 AM CST Please review and sign. OLL PROFESSIONAL documented in this encounter Plan of Treatment Upcoming Encounters Date Type Department Care Team (Late st Contact Info) Description 02/05/2025 8:00 AM CDT Office Visit [facility] - Internal Medicine - [place] [address] [place] [address] Wali Pak MD [address] [place] [address] documented as of this encounter Visit Diagnoses Not on filedocumented in this encounter Additional Health Concerns Infection Onset Date Last Indicated Resolved Time COVID - 19 12/03/2020 12/03/2020 12/04/2020 2:47 PM PAYROLL PROFESSIONAL COVID - 19 10/31/2021 10/31/2021 11/20/2021 12:1 6 AM PAYROLL PROFESSIONAL COVID - 19 Confirmed 10/31/2021 10/31/2021 022 12:16 AM PAYROLL PROFESSIONAL documented as of this encounter Care Teams Blower Room Attendant Relationship Specialty Start Date End Date Wali Pak MD [address] [place] [address] PCP - General Internal Medicine 12/30/15 documented as of this encounter
--- OUTSIDE RECORDS SUMMARY | 2024-10-13 16:09 | XMS_ITS | Encounter Summary ---
Author Organization [facility] Address [address] [facility] [place] [address] Phone Care Team Providers Care Farm Equipment Service Technician Name Role Phone Wali Pak MD Primary Care Provider Reason for Visit * Reason Comments Medication Refill Encounter Details Date Type Department Care Team (Late st Contact Info) Description 05/29/2021 Refill [facility] - [place] [address] [place] [address] Wali Pak MD [address] [facility] [place] [place] [address] Medication Refill Social History Tobacco [...] Telephone Encounter - Fernanda Devine RN - 05/29/2021 8:59 AM CDT Please review and sign. documented in this encounter Plan of Treatment Upcoming Encounters Date Type Department Care Team (Late st Contact Info) Description 02/05/2025 8:00 AM CDT Office Visit [facility] - Internal Medicine - [place] [address] [place] [address] Wali Pak MD [address] [place] [address] documented as of this encounter Visit Diagnoses Not on filedocumented in this encounter Additional Health Concerns Assessment Noted Time PHQ-9 Depression Total Score: 0 12/13/19 21 9:00 AM WORKFORCE PLANNING ANALYST documented as of this encounter Care Teams Farm Equipment Service Technician Relationship Specialty Start Date End Date Wali Pak MD [address] [place] [address] PCP - General Internal Medicine 12/30/15 documented as of this encounter
--- OUTSIDE RECORDS SUMMARY | 2024-10-13 16:09 | XMS_ITS | Encounter Summary ---
Author Organization [facility] Address [address] [facility] [place] [address] Phone Care Team Providers Care Scanning Clerk Name Role Phone Wali Pak MD Primary Care Provider Encounter Details Date Type Department Care Team (Late st Contact Info) Description 10/16/2020 Telephone [facility] [address] [place] [address] Wali Pak MD [address] [facility] [place] [address] Social History Tobacco Use Types [...] Telephone Encounter - Wali Pak MD - 10/16/2020 4:43 PM DIRECTOR OF CORPORATE REAL ESTATE Norflex rx sent CTOR OF CORPORATE REAL ESTATE * Telephone Encounter - Fernanda Devine RN - 10/16/2020 12:12 PM DIRECTOR OF CORPORATE REAL ESTATE ----- Message from Payton Burns sent at 10/16/2020 12:03 PM DIRECTOR OF CORPORATE REAL ESTATE ----- Regarding: PT MEDICAL QUESTION RAMESH PULLED A MUSCLE IN HER BACK AND WOULD LIKE DOCTOR TO CALL MEDICINE IN FOR PAIN. Call back number:[phone] PHARMACY - [facility] CTOR OF CORPORATE REAL ESTATE documented in this encounter Plan of Treatment Upcoming Encounters Date Type Department Care Team (Late st Contact Info) Description 02/05/2025 8:00 AM CDT Office Visit [facility] - Internal Medicine - [place] [address] [place] [phone] Wali Pak MD [address] [place] [address] documented as of this encounter Visit Diagnoses Not on filedocumented in this encounter Care Teams Scanning Clerk Relationship Specialty Start Date End Date Wali Pak MD [address] [place] [address] PCP - General Internal Medicine 12/30/15 documented as of this encounter
--- OUTSIDE RECORDS SUMMARY | 2024-10-13 16:09 | XMS_ITS | Encounter Summary ---
Author Organization [facility] Address [address] [facility] [place] [address] Phone Care Team Providers Care Outdoor Education Teacher Name Role Phone Wali Pak MD Primary Care Provider Reason for Visit * Reason Comments Medication Refill Encounter Details Date Type Department Care Team (Late st Contact Info) Description 03/11/2021 Refill [facility] Medicine - [place] [address] [place] [address] Wali Pak MD [address] [facility] [place] [address] Medication Refill Social History Tobacco [...] Telephone Encounter - Fernanda Devine RN - 03/11/2021 7:48 AM CDT Please review and sign. documented in this encounter Plan of Treatment Upcoming Encounters Date Type Department Care Team (Late st Contact Info) Description 02/05/2025 8:00 AM CDT Office Visit [facility] - Internal Medicine - [place] [address] [place] [address] Wali Pak MD [address] [place] [address] documented as of this encounter Visit Diagnoses Not on filedocumented in this encounter Additional Health Concerns Assessment Noted Time PHQ-9 Depression Total Score: 0 12/13/19 21 9:00 AM SPICE MILLER HAMMER MILL documented as of this encounter Care Teams Outdoor Education Teacher Relationship Specialty Start Date End Date Wali Pak MD [address] [place] [address] PCP - General Internal Medicine 12/30/15 documented as of this encounter
--- OUTSIDE RECORDS SUMMARY | 2024-10-13 16:09 | XMS_ITS | Encounter Summary ---
Author Organization [facility] Address [address] [facility] [place] [address] Phone Care Team Providers Care Electrician Third Name Role Phone Wali Pak MD Primary Care Provider [phone] Encounter Details Date Type Department Care Team (Late st Contact Info) Description 11/08/2020 Refill [facility] - [facility] Medicine - [place] [address] [place] [address] Wali Pak MD [address] [facility] [place] [address] Social History Tobacco Use Types Packs/Day Years [...] Telephone Encounter - Fernanda Devine RN - 11/08/2020 10:16 AM CLAIM ATTORNEY ----- Message from Payton Burns sent at 11/08/2020 10:13 AM CLAIM ATTORNEY ----- Regarding: RX R/F HAVE YOU CALLED YOUR PHARMACY? yes Medication: BUPROPION Pharmacy: [id number] [place] [address] [facility] [address] Call back number:[phone] DETAILS---DOSAGE SHOULD HAVE BEEN INCREASED FROM HALF A TABLET TO A FULL TABLET. M ATTORNEY documented in this encounter Plan of Treatment Upcoming Encounters Date Type Department Care Team (Late st Contact Info) Description 02/05/2025 8:00 AM CDT Office Visit [facility] - Internal Medicine [facility] [address] [place] [address] Wali Pak MD [address] [place] [address] documented as of this encounter Visit Diagnoses Not on filedocumented in this encounter Care Teams Electrician Third Relationship Specialty Start Date End Date Wali Pak MD [address] [place] [address] PCP - General Internal Medicine 12/30/15 documented as of this encounter
--- OUTSIDE RECORDS SUMMARY | 2024-10-13 16:09 | XMS_ITS | Encounter Summary ---
Author Organization [facility] Address [address] [facility] [place] [address] Phone Care Team Providers Care Traveling Passenger Agent Name Role Phone Wali Pak MD Primary Care Provider [phone] Reason for Visit * Reason Comments Medication Refill Encounter Details Date Type Department Care Team (Late st Contact Info) Description 10/15/2020 Refill [facility] Admitting [address] [place] [phone] Wali Pak MD [address] [place] [address] Medication Refill Social History Tobacco Use Types [...] Telephone Encounter - Fernanda Devine RN - 10/15/2020 7:33 AM CST Please review and sign. SITE COORDINATOR documented in this encounter Plan of Treatment Upcoming Encounters Date Type Department Care Team (Late st Contact Info) Description 02/05/2025 8:00 AM CDT Office Visit [facility] - Internal Medicine - [place] [address] [place] [address] Wali Pak MD [address] [place] [address] documented as of this encounter Visit Diagnoses Not on filedocumented in this encounter Additional Health Concerns Infection Onset Date Last Indicated Resolved Time COVID - 19 12/03/2020 12/03/2020 12/04/2020 2:47 PM ON SITE COORDINATOR COVID - 19 10/31/2021 10/31/2021 11/20/2021 12:1 6 AM ON SITE COORDINATOR COVID - 19 Confirmed 10/31/2021 10/31/2021 022 12:16 AM ON SITE COORDINATOR documented as of this encounter Care Teams Traveling Passenger Agent Relationship Specialty Start Date End Date Wali Pak MD [address] [place] [address] PCP - General Internal Medicine 12/30/15 documented as of this encounter
--- OUTSIDE RECORDS SUMMARY | 2024-10-13 16:09 | XMS_ITS | Encounter Summary ---
Author Organization [facility] Address [address] [facility] [place] [address] Phone Care Team Providers Care Front Desk Person Name Role Phone Wali Pak MD Primary Care Provider Reason for Visit * Reason Comments Medication Refill Encounter Details Date Type Department Care Team (Late st Contact Info) Description 02/04/2021 Refill [facility] - Internal Medicine - [place] [address] [place] [address] Wali Pak MD [address] [facility] [place] [place] [address] Medication Refill Social History Tobacco [...] Telephone Encounter - Fernanda Devine RN - 02/04/2021 9:45 AM CDT Please review and sign. documented in this encounter Plan of Treatment Upcoming Encounters Date Type Department Care Team (Late st Contact Info) Description 02/05/2025 8:00 AM CDT Office Visit [facility] - Internal Medicine - [place] [address] [place] [address] Wali Pak MD [address] [place] [address] documented as of this encounter Visit Diagnoses Not on filedocumented in this encounter Additional Health Concerns Assessment Noted Time PHQ-9 Depression Total Score: 0 12/13/19 21 9:00 [address] STREETCAR STARTER documented as of this encounter Care Teams Front Desk Person Relationship Specialty Start Date End Date Wali Pak MD [address] [place] [address] PCP - General Internal Medicine 12/30/15 documented as of this encounter
--- OUTSIDE RECORDS SUMMARY | 2024-10-13 16:09 | XMS_ITS | Encounter Summary ---
Author Organization [facility] Address [address] [facility] [place] [address] Phone Care Team Providers Care Paramedic Name Role Phone Wali Pak MD Primary Care Provider Reason for Visit * Reason Comments Hypertension Encounter Details Date Type Department Care Team (Late st Contact Info) Description 09/23/2020 1:30 PM WASTE DUSTER Telemedicine [facility] - Internal Medicine - [place] [address] [place] [address] Wali Pak MD [address] [facility] [place] [address] Paroxysmal atrial flutter (HCC) (Primary Dx); Essential hypertension, benign Social History Tobacco Use Types Packs/Day Years [...] COVID-19? No / Unsure 09/06/2020 9:46 AM WASTE DUSTER documented as of this encounter Progress Notes * Wali Pak MD - 09/23/2020 1:30 PM CST PROGRESS NOTE [facility] - INTERNAL MEDICINE [address] [place] [address] 09/23/2020 Mervat Haro 1965 Chief Complaint Patient presents with ??? Hypertension Patient telephone visit for follow-up for hypertension. About 4 days ago patient had body ache along with sinus congestion. She had COVID-19 test done 2 days ago result is pending. Patient has no fever. Does have fatigue. No shortness of breath. She denies any chest pain, palpitation. Tolerating medications well. Also being followed by supervisor component assembler. ROS Review of Systems Constitutional: Positive for appetite change and fatigue. HENT: Negative. Eyes: Negative. Respiratory: Negative. Cardiovascular: [...] Active Problem List Diagnosis Date Noted ??? Paroxysmal atrial flutter (HCC) 09/23/2020 ??? Essential hypertension, benign 09/23/2020 ??? Trigger thumb of right hand 12/27/2017 ??? Anxiety state 09/28/2013 Current Outpatient Medications: ??? apixaban (ELIQUIS) 5 MG Tablet ??? buPROPion (WELLBUTRIN) 100 MG Tablet ??? xdnjjqtvgx-kwxvjezktvizn-pvksgpqu (FIORICET, ESGIC) 50-325-40 MG Tablet ??? LEVOTHYROXINE SODIUM PO ??? LORazepam (ATIVAN) 0.5 MG Tablet ??? metoprolol Succinate (TOPROL-XL) 50 MG TABLET SR 24 HR Assessment ASSESSMENT & PLAN: No follow-ups on file. Diagnoses and all orders for this visit: Paroxysmal atrial flutter (HCC) Essential hypertension, benign Other orders - apixaban (ELIQUIS) 5 MG Tablet; Take 5 mg by mouth 2 times daily. - metoprolol Succinate (TOPROL-XL) 50 MG TABLET SR 24 HR; Take 25 mg by mouth 2 times daily. Continue current medications. Follow-up with supervisor component assembler. Self-quarantine till COVID-19 antigen result comes back. Follow-up in 3 months sooner if needed Patient was assessed via telephone for a [...] may have occurred. By: Wali Pak MD 09/23/2020 1:40 PM WASTE DUSTER E DUSTER documented in this encounter Plan of Treatment Upcoming Encounters Date Type Department Care Team (Late st Contact Info) Description 02/05/2025 8:00 AM CDT Office Visit [facility] - [facility] Medicine [facility] [address] [place] [phone] Wali Pak MD [address] [place] [address] documented as of this encounter Visit Diagnoses Diagnosis Paroxysmal atrial flutter (HCC)- Primary Atrial flutter Essential hypertension, benign documented in this encounter Care Teams Paramedic Relationship Specialty Start Date End Date Wali Pak MD [address] [place] [address] PCP - General Internal Medicine 12/30/15 documented as of this encounter
--- OUTSIDE RECORDS SUMMARY | 2024-10-13 16:09 | XMS_ITS | Encounter Summary ---
Author Organization [facility] Address [address] [facility] [place] [address] Phone Care Team Providers Care Wreath Machine Operator Name Role Phone Wali Pak MD Primary Care Provider Reason for Visit * Reason Onset Date Comments Headache 08/06/2020 Encounter Details Date Type Department Care Team (Late st Contact Info) Description 08/06/2020 Telephone [facility] - Internal Medicine [facility] [address] [place] [address] Wali Pak MD [address] [facility] [place] [address] Headache Social History Tobacco Use Types Packs/Day Years [...] Telephone Encounter - Fernanda Devine RN - 08/07/2020 10:31 AM CDT Phoned patient with providers recommendations. Patient aware and verbalized understanding. * Telephone Encounter - Wali Pak MD - 08/06/2020 4:42 PM CDT Fioricet rx sent to [facility]. She should not take Tylenol with it. If headache persist, need to see. If get worse need to go to ER * Telephone Encounter - Fernanda Devine RN - 08/06/2020 4:33 PM CDT Called patient and she stated that she has been monitoring her BP and it has been good but that this headache started last Wednesday and she has been taking 3 regular strength tylenol about every 6 hours and it gives very little relief. * Telephone Encounter - Wali Pak MD - 08/06/2020 3:06 PM CDT She need to make sure her BP is okay. May take Tylenol 1000mg q8hrs prn * Telephone Encounter - Fernanda Devine RN - 08/06/2020 2:27 PM CDT Patient stated that she had a headache and that she doea not have allergies she stated that Tylenolusually helps but that it is just not getting rid of it she stated that since she is on eliquis that she didn't want to take anything else with out asking. documented in this encounter Plan of Treatment Upcoming Encounters Date Type Department Care Team (Late st Contact Info) Description 02/05/2025 8:00 AM CDT Office Visit [facility] - Internal Medicine - [place] [address] [place] [address] Wali Pak MD [address] [place] [address] documented as of this encounter Visit Diagnoses Not on filedocumented in this encounter Care Teams Wreath Machine Operator Relationship Specialty Start Date End Date Wali Pak MD [address] [place] [address] PCP - General Internal Medicine 12/30/15 documented as of this encounter
--- OUTSIDE RECORDS SUMMARY | 2024-10-13 16:09 | XMS_ITS | Encounter Summary ---
Author Organization [facility] Address [address] [place] [address] Phone Care Team Providers Care Surgical Clinical Reviewer Name Role Phone Wali Pak MD Primary Care Provider Reason for Visit * Reason Comments Hypertension Encounter Details Date Type Department Care Team (Late st Contact Info) Description 09/06/2020 9:50 AM FIBRE OPTIC CABLE SPLICER Immunization [facility] - [facility] - [place] [address] [place] [phone] [facility] Nurse [place] BP check (Primary Dx) Discharge Disposition: Discharged to home [...] COVID-19? No / Unsure 09/06/2020 9:46 AM FIBRE OPTIC CABLE SPLICER documented as of this encounter Progress Notes * Fernanda Devine RN - 09/06/2020 9:50 AM CST There were no vitals filed for this visit. HPI: Patient presents today for blood pressure check for patient symptom pounding behind eyes Notify provider of any positive findings. Chest pain: No Pain rating: Headache: Yes / Details: Pounding behind eyes Duration: 2 days ago Pain rating: Confusion: No Drowsiness: No Difficulty breathing: No Dizziness: No Orthostatic B/P's: Cough: No Feet swelling: No Nausea/vomiting: No Palpitations: No Blurred vision: Yes / Details: When hurting really bad Duration: 2 days Bloody nose: No Tingling hands/feet: No Blood tinged sputum: No Fatigue: Yes / Details: extra Duration: 2 days Blood in urine: No Ringing in the ear(s): No GI disturbance: No Leg cramps: No Sexual dysfunction: No Hearing problems: No Rash: No Irregular heart rate: No Other: Urine output: unchanged Are there concerns with medications? no Are refills needed? no Compliance with medications? yes Current Outpatient Medications Medication Sig Dispense Refill ??? buPROPion (WELLBUTRIN) 100 MG Tablet TAKE 1/2 TABLET BY MOUTH TWO TIMES A DAY 30 Tab 0 ??? bivjvekddx-mafagtkucargl-xqammgap (FIORICET, ESGIC) 50-325-40 MG Tablet Take 1 Tab by mouth every 6 hours as needed for Headaches. 15 Tab 1 ??? LEVOTHYROXINE SODIUM PO Take by mouth. ??? LORazepam (ATIVAN) 0.5 MG Tablet TAKE ONE TABLET BY MOUTH ONCE DAILY NEEDED FOR ANXIETY 10 Tab 0 ??? metoprolol Succinate (TOPROL-XL) 50 MG TABLET SR 24 HR TAKE 1 TABLET BY MOUTH EVERY MORNING AND1/2 TABLET IN THE IN THE EVENING (DOSE INCREASE) 45 Tab 2 No current facility-administered medications for this visit. Is patient monitoring their BP at home? yes If yes: Systolic BP range: 142 and Diastolic BP range: 90 Assessment: Notify physician of any positive findings. Lethargic: no Difficulty breathing: no Edema: no Skin color: good Appetite: good Fluid intake: good Other: () Patient presented to office requesting that BP be checked stated that she had been noticing for thelast 2 days an increase pounding behind her eyes and was concerned that BP might be elevated. Upon examination her BP was noted to be 122/74. She appeared to be slightly anxious and after further discussion she stated that she had been feeling that she needed her medication for nerves and stated that she felt as if her Welbutrin might not be working as well as it was and was open to a possible increase in dosage. She takes 100mg daily by taking 1/2 tab in the morning and 1/2 tab in the evening.She was well groomed and well nourished and was relieved that BP was normal. E OPTIC CABLE SPLICER * Wali Pak MD - 09/06/2020 9:50 AM CST She may increase Wellbutrin to 1 bid and make fu appt in next 2weeks E OPTIC CABLE SPLICER * Fernanda Devine RN - 09/06/2020 9:50 AM CST Patient aware E OPTIC CABLE SPLICER documented in this encounter Plan of Treatment Upcoming Encounters Date Type Department Care Team (Late st Contact Info) Description 02/05/2025 8:00 AM CDT Office Visit [facility] - Internal Medicine [facility] [address] [place] [phone] Wali Pak MD [address] [place] [address] documented as of this encounter Visit Diagnoses Diagnosis BP check- Primary Screening for hypertension documented in this encounter Care Teams Surgical Clinical Reviewer Relationship Specialty Start Date End Date Wali Pak MD [address] [place] [address] PCP - General Internal Medicine 12/30/15 documented as of this encounter
--- OUTSIDE RECORDS SUMMARY | 2024-10-13 16:09 | XMS_ITS | Encounter Summary ---
Author Organization [facility] Address [address] [place] [address] Phone Care Team Providers Care Diesel Stationary Engineer Name Role Phone Wali Pak MD Primary Care Provider Reason for Visit * Reason Comments Foot Pain left foot Encounter Details Date Type Department Care Team (Late st Contact Info) Description 12/13/2020 9:45 AM SECONDARY CONNECTOR ARMATURE Office Visit [facility] - Internal Medicine [facility] [address] [place] [phone] Wali Pak MD [address] [place] [address] Cellulitis of left foot (Primary Dx) Discharge Disposition: Discharged to home [...] COVID-19? No / Unsure 12/13/2020 9:36 AM SECONDARY CONNECTOR ARMATURE documented as of this encounter Last Filed Vital Signs Vital Sign Reading Time Taken Comments Blood Pressure 130/72 12/13/2020 9:38 AM SECONDARY CONNECTOR ARMATURE Pulse 66 12/13/2020 9:38 AM SECONDARY CONNECTOR ARMATURE Temperature 36.1 ??C (97 ??F) 12/13/2020 9:38 AM SECONDARY CONNECTOR ARMATURE Respiratory Rate - - Oxygen Saturation 96% 12/13/2020 9:38 AM SECONDARY CONNECTOR ARMATURE Inhaled Oxygen Concentration - - Weight 109.8 kg (242 lb) 12/13/2020 9:38 AM SECONDARY CONNECTOR ARMATURE Height 167.6 cm (5' 6 ) 12/13/2020 9:38 AM SECONDARY CONNECTOR ARMATURE Body Mass Index 39.06 12/13/2020 9:38 AM SECONDARY CONNECTOR ARMATURE documented in this encounter Progress Notes * Dayana Chapa, JOYCELYN - 12/13/2020 9:45 AM CST Mervat Ocampo Tahir, 55 y.o., female is here for Foot Pain (left foot) Medication Refills: Patient reports/denies need for medication refills. Orders Pended: no Requested Prescriptions No prescriptions requested or ordered in this encounter Home Medications Medication Sig Start Date End Date Taking? Authorizing Provider aspirin 325 MG Tablet Take 325 mg by mouth. Yes Denice Watts MD buPROPion (WELLBUTRIN) 100 MG Tablet TAKE 1 TABLET BY MOUTH TWICE A DAY 12/03/20 Yes Jewell Pak MD jjuofvapzh-fowapzpqfyylu-canrltzi (FIORICET, ESGIC) 50-325-40 MG Tablet Take 1 Tab by mouth every 6hours as needed for Headaches. 08/06/20 Yes Wali Pak MD furosemide (LASIX) 20 MG Tablet Take 20 mg by mouth. 02/05/20 Yes Denice Watts MD LORazepam (ATIVAN) 0.5 MG Tablet TAKE ONE TABLET BY MOUTH ONCE DAILY NEEDED FOR ANXIETY 09/05/20Yes Wali Pak MD metoprolol Succinate (TOPROL-XL) 50 MG TABLET SR 24 HR Take 25 mg by mouth 2 times daily. Yes Provider, MD Denice There are no discontinued medications. I have reviewed the home medication list with the patient and have reconciled discrepancies. The list is accurate to the best of my knowledge. Smoking Status: Social History Tobacco Use ??? Smoking status: Current Some Day Smoker Packs/day: 0.25 Years: 3.00 Pack years: 0.75 Types: Cigarettes ??? Smokeless tobacco: Never Used ??? Tobacco comment: social Substance Use Topics ??? Alcohol use: Yes Comment: social ??? Drug use: No Smoking Cessation Counseling Given: no Health Care Maintenance: Health Maintenance Due Topic Date Due ??? Pneumococcal Immunization (0-64 years) (1 of 1 - PPSV23) 1969 ??? DTaP/Tdap/Td Immunization (1 - Tdap) 1970 ??? SARS-COV-2 Immunization (1 of 2) 1979 ??? Pap Smear 1984 ??? Zoster Immunization (1 of 2) 2013 ??? Colorectal Cancer Screening 2013 ??? Mammogram 12/10/2013 ??? Influenza Immunization (1) 06/25/2020 Orders Pended: no The following BPA's have been addressed with the patient today: Flu, Smoking and Depression NDARY CONNECTOR ARMATURE * Wali aPk MD - 12/13/2020 9:45 AM CST PROGRESS NOTE [facility] - [place] [address] PHONE: [phone] FAX: [phone] 12/13/2020 NAME: Mervat Ocampo Lawai, : 1965, Assessment ASSESSMENT & PLAN: Return in about 4 months (around 04/12/2021) for htn. Diagnoses and all orders for this visit: Cellulitis of left foot Other orders - ciprofloxacin (CIPRO) 500 MG Tablet; Take 1 Tablet by mouth 2 times daily for 10 days. Start ciprofloxacin 500 mg b.i.d. for 10 days. Warm compresses. If symptoms get worse refer to salvage mend worker. Chief Complaint Patient presents with ??? Foot Pain left foot HPI Patient is here with complain of redness and swelling of left sole area. Symptoms started 2-3 days ago. No injury. History of nail injury about a year ago subsequently there was no residual swelling or pain. Denies any fever chills or rigors. Pain is worse at nighttime. She is able to walk without any discomfort. ROS Review of systems was negative, except as documented in HPI PHYSICAL EXAM VITALS: Wt Readings from Last 3 Encounters: 12/13/20 242 lb (109.8 kg) 11/14/18 215 lb (97.5 kg) 12/20/17 219 lb (99.3 kg) Temp Readings from Last 3 Encounters: 12/13/20 97 ??F (36.1 ??C) (Temporal) 11/14/18 97.5 ??F (36.4 ??C) (Tympanic) 12/27/17 97.9 ??F (36.6 ??C) (Tympanic) BP Readings from Last 3 Encounters: 12/13/20 130/72 11/14/18 155/90 12/27/17 146/67 Pulse Readings from Last 3 Encounters: 12/13/20 66 11/14/18 82 12/27/17 78 Physical Exam Vitals and nursing note reviewed. Constitutional: Appearance: Normal appearance. Neurological: Mental Status: She is alert. Left foot-mild erythema in the left sole area near arch present. Mild tenderness present. Pedal pulses normal. No swelling in the dorsal area. Ankle joint movement is normal. Past medical, surgical, social and family history has been reviewed and updated as necessary. Medications and allergies has been reviewed and updated. Allergies Allergen Reactions ??? Latex Rash When wears latex herself ??? Penicillins Rash As a child / has had penicillin since then with no problems Current Outpatient Medications: ??? aspirin 325 MG Tablet ??? buPROPion (WELLBUTRIN) 100 MG Tablet ??? clgpzwcdjs-dtpjvxpfofgfc-zxfbiwwu (FIORICET, ESGIC) 50-325-40 MG Tablet ??? ciprofloxacin (CIPRO) 500 MG Tablet ??? furosemide (LASIX) 20 MG Tablet ??? LORazepam (ATIVAN) 0.5 MG Tablet ??? metoprolol Succinate (TOPROL-XL) 50 MG TABLET SR 24 HR I educated Mervat regarding diagnoses and plan of care. She verbalizes understanding and will callthe office if situation changes. Voice recognition software was utilized in this dictation. Despite proof reading, typographical errors and/or content errors may have occurred. By: Wali Pak MD 12/13/2020 10:01 AM SECONDARY CONNECTOR ARMATURE NDARY CONNECTOR ARMATURE documented in this encounter Plan of Treatment Upcoming Encounters Date Type Department Care Team (Late st Contact Info) Description 02/05/2025 8:00 AM CDT Office Visit [facility] - Internal Medicine - [place] [address] [place] [address] Wali Pak MD [address] [place] [address] documented as of this encounter Visit Diagnoses Diagnosis Cellulitis of left foot- Primary Cellulitis and abscess of foot, except toes documented in this encounter Additional Health Concerns Assessment Noted Time PHQ-9 Depression Total Score: 0 12/13/19 21 9:00 AM SECONDARY CONNECTOR ARMATURE documented as of this encounter Care Teams Diesel Stationary Engineer Relationship Specialty Start Date End Date Wali Pak MD [address] [place] [address] PCP - General Internal Medicine 12/30/15 documented as of this encounter
--- OUTSIDE RECORDS SUMMARY | 2024-10-13 16:09 | XMS_ITS | Encounter Summary ---
Author Organization [facility] Address [address] [place] [address] Care Team Providers Care Tin Pot Operator Name Role Phone Wali Pak MD Primary Care Provider Encounter Details Date Type Department Care Team (Late Contact Info) Description 09/20/2020 9:00 AM SPARKER AND PATCHER Rapid Evaluation [facility] Mobile Testing [address] [place] [address] Social History Tobacco Use Types Packs/Day Years [...] COVID-19? No / Unsure 09/06/2020 9:46 AM SPARKER AND PATCHER documented as of this encounter Plan of Treatment Upcoming Encounters Date Type Department Care Team (Late Contact Info) Description 02/05/2025 8:00 AM CDT Office Visit [facility] - Internal Medicine [facility] [address] [place] [address] Wali Pak MD [address] [facility] [place] [address] documented as of this encounter Visit Diagnoses Not on filedocumented in this encounter Care Teams Tin Pot Operator Relationship Specialty Start Date End Date Wali Pak MD [address] [place] [address] PCP - General Internal Medicine 12/30/15 documented as of this encounter
--- OUTSIDE RECORDS SUMMARY | 2024-10-13 16:09 | XMS_ITS | Encounter Summary ---
Author Organization [facility] Address [address] [facility] [place] [address] Phone Care Team Providers Care Presser All Around Name Role Phone Wali Pak MD Primary Care Provider Reason for Visit * Reason Comments Medication Refill Encounter Details Date Type Department Care Team (Late st Contact Info) Description 12/03/2020 Refill [facility] - [facility] - [place] [address] [place] [address] Wali Pak MD [address] [place] [address] Medication Refill Social History Tobacco [...] Telephone Encounter - Fernanda Devine RN - 12/03/2020 7:55 AM CST Please review and sign. DAY BABYSITTER documented in this encounter Plan of Treatment Upcoming Encounters Date Type Department Care Team (Late st Contact Info) Description 02/05/2025 8:00 AM CDT Office Visit [facility] - Internal Medicine [facility] [address] [place] [address] Wali Pak MD [address] [place] [address] documented as of this encounter Visit Diagnoses Not on filedocumented in this encounter Care Teams Presser All Around Relationship Specialty Start Date End Date Wali Pak MD [address] [place] [address] PCP - General Internal Medicine 12/30/15 documented as of this encounter
--- OUTSIDE RECORDS SUMMARY | 2024-10-13 16:09 | XMS_ITS | Encounter Summary ---
Author Organization [facility] Address [address] [facility] [place] [address] Phone Care Team Providers Care Head Chef Name Role Phone Wali Pak MD Primary Care Provider [phone] Reason for Visit * Reason Comments Medication Refill Encounter Details Date Type Department Care Team (Late st Contact Info) Description 09/05/2020 Refill [facility] Admitting [address] [place] [phone] Wali Pak MD [address] [place] [address] Medication Refill Social History Tobacco Use Types [...] COVID-19? No / Unsure 09/06/2020 9:46 AM CHIEF UNIT FORESTER documented as of this encounter Miscellaneous Notes * Telephone Encounter - Fernanda Devine RN - 09/05/2020 4:06 PM CST Please review and sign. F UNIT FORESTER documented in this encounter Plan of Treatment Upcoming Encounters Date Type Department Care Team (Late st Contact Info) Description 02/05/2025 8:00 AM CDT Office Visit [facility] - Internal Medicine - [place] [address] [place] [address] Wali Pak MD [address] [place] [address] documented as of this encounter Visit Diagnoses Not on filedocumented in this encounter Additional Health Concerns Infection Onset Date Last Indicated Resolved Time COVID - 19 12/03/2020 12/03/2020 12/04/2020 2:47 PM CHIEF UNIT FORESTER COVID - 19 10/31/2021 10/31/2021 11/20/2021 12:1 6 AM CHIEF UNIT FORESTER COVID - 19 Confirmed 10/31/2021 10/31/2021 022 12:16 AM CHIEF UNIT FORESTER documented as of this encounter Care Teams Head Chef Relationship Specialty Start Date End Date Wali Pak MD [address] [place] [address] PCP - General Internal Medicine 12/30/15 documented as of this encounter
--- OUTSIDE RECORDS SUMMARY | 2024-10-13 16:09 | XMS_ITS | Encounter Summary ---
Author Organization [facility] Address [address] [facility] [place] [address] Phone Care Team Providers Care Electrical Engineer Name Role Phone Wali Pak MD Primary Care Provider [phone] Encounter Details Date Type Department Care Team (Late st Contact Info) Description 01/23/2021 Telephone [facility] - Internal Medicine [facility] [address] [place] [address] Wali Pak MD [address] [place] [address] Social History Tobacco Use Types [...] Telephone Encounter - Fernanda Devine RN - 01/24/2021 12:19 PM CDT Patient to call back and schedule appointment. * Telephone Encounter - Tereza Lujan, PAC - 01/24/2021 9:41 AM CDT Please make OV with pt to see me She may need imaging; circulation needs to be evaluated; amount of swelling needs to be assessed tosee if lasix is appropriate. Does not currently have CHF dx * Telephone Encounter - Dayana Chapa CMA - 01/23/2021 3:39 PM CDT Patients ankles is still swollen. Patient is on furosemide 20mg- one dailly. Can patient take 2 tabs bc one is not helping with the swelling. documented in this encounter Plan of Treatment Upcoming Encounters Date Type Department Care Team (Late st Contact Info) Description 02/05/2025 8:00 AM CDT Office Visit [facility] - Internal Medicine [place] [address] [place] [address] Wali Pak MD [address] [place] [address] documented as of this encounter Visit Diagnoses Not on filedocumented in this encounter Additional Health Concerns Assessment Noted Time PHQ-9 Depression Total Score: 0 12/13/19 21 9:00 AM AUTOMOTIVE PAINT TECHNICIAN documented as of this encounter Care Teams Electrical Engineer Relationship Specialty Start Date End Date Wali Pak MD [address] [place] [address] PCP - General Internal Medicine 12/30/15 documented as of this encounter
--- OUTSIDE RECORDS SUMMARY | 2024-10-13 16:09 | XMS_ITS | Encounter Summary ---
Author Organization [facility] Address [address] [facility] [place] [address] Phone Care Team Providers Care Batch Mixer Operator Name Role Phone Wali Pak MD Primary Care Provider Reason for Visit * Reason Comments Medication Refill Encounter Details Date Type Department Care Team (Late st Contact Info) Description 01/17/2021 Refill [facility] - [facility] - [place] [address] [place] [address] Wali Pak MD [address] [place] [address] Medication Refill Social History Tobacco [...] Telephone Encounter - Fernanda Devine RN - 01/17/2021 7:58 AM CDT Please review and sign. documented in this encounter Plan of Treatment Upcoming Encounters Date Type Department Care Team (Late st Contact Info) Description 02/05/2025 8:00 AM CDT Office Visit [facility] - Internal Medicine - [place] [address] [place] [address] Wali Pak MD [address] [place] [address] documented as of this encounter Visit Diagnoses Not on filedocumented in this encounter Additional Health Concerns Assessment Noted Time PHQ-9 Depression Total Score: 0 12/13/19 21 9:00 AM ENVIRONMENTAL STUDIES PROFESSOR documented as of this encounter Care Teams Batch Mixer Operator Relationship Specialty Start Date End Date Wali Pak MD [address] [place] [address] PCP - General Internal Medicine 12/30/15 documented as of this encounter
--- OUTSIDE RECORDS SUMMARY | 2024-10-13 16:09 | XMS_ITS | Encounter Summary ---
Author Organization [facility] [employer] Care Team Providers Care Seam Taper Machine Name Role Phone Wali Pak MD Primary Care Provider [phone] Encounter Details Date Type Department Care Team (Latest Contact Info) Description 12/13/2020 Travel Social History Tobacco Use Types Packs/Day [...] COVID-19? No / Unsure 12/13/2020 9:36 AM WAREHOUSING TECHNICIAN documented as of this encounter Plan of Treatment Upcoming Encounters Date Type Department Care Team (Late st Contact Info) Description 02/05/2025 8:00 AM CDT Office Visit [facility] - Internal Medicine - [place] [address] [place] [address] Wali Pak MD [address] [place] [address] documented as of this encounter Visit Diagnoses Not on filedocumented in this encounter Additional Health Concerns Assessment Noted Time PHQ-9 Depression Total Score: 0 12/13/19 21 9:00 AM WAREHOUSING TECHNICIAN documented as of this encounter Care Teams Seam Taper Machine Relationship Specialty Start Date End Date Wali Pak MD [address] [place] [address] PCP - General Internal Medicine 12/30/15 documented as of this encounter
--- OUTSIDE RECORDS SUMMARY | 2024-10-13 16:09 | XMS_ITS | Encounter Summary ---
Author Organization [facility] Address [address] [place] [address] Care Team Providers Care Bulk Filler Name Role Phone Wali Pak MD Primary Care Provider Encounter Details Date Type Department Care Team (Late st Contact Info) Description 09/20/2020 Lab Requisition [facility] Mobile Testing [address] [place] [address] [place] [address] [place] [address] Social History Tobacco Use Types Packs/Day Years [...] COVID-19? No / Unsure 09/06/2020 9:46 AM TUBE KNITTER documented as of this encounter Plan of Treatment Upcoming Encounters Date Type Department Care Team (Late st Contact Info) Description 02/05/2025 8:00 AM CDT Office Visit [facility] - Internal Medicine [facility] [address] [place] [address] Wali Pak MD [address] [place] [address] documented as of this encounter Procedures Procedure Name Priority Date/Time Associated Diagnosis Comments SARS-COV-2 PCR [facility] ONLY Routine 09/20/2020 5:00 PM TUBE KNITTER documented in this encounter Visit Diagnoses Not on filedocumented in this encounter Care Teams Bulk Filler Relationship Specialty Start Date End Date Wali Pak MD [address] [place] [address] PCP - General Internal Medicine 12/30/15 documented as of this encounter
--- OUTSIDE RECORDS SUMMARY | 2024-10-13 16:09 | XMS_ITS | Encounter Summary ---
Author Organization [employer] Care Team Providers Care Prn Occupational Therapist Name Role Phone Wali Pak MD Primary Care Provider [phone] Encounter Details Date Type Department Care Team (Latest Contact Info) Description 12/03/2020 Travel Social History Tobacco Use Types Packs/Day [...] COVID-19? No / Unsure 12/03/2020 1:58 PM SEWER PIPE LAYER HELPER documented as of this encounter Plan of Treatment Upcoming Encounters Date Type Department Care Team (Late st Contact Info) Description 02/05/2025 8:00 AM CDT Office Visit [facility] - Internal Medicine - [place] [address] [place] [phone] Wali Pak MD [address] [place] [address] documented as of this encounter Visit Diagnoses Not on filedocumented in this encounter Additional Health Concerns Infection Onset Date Last Indicated Resolved Time COVID - 19 12/03/2020 12/03/2020 12/04/2020 2:47 PM SEWER PIPE LAYER HELPER documented as of this encounter Care Teams Prn Occupational Therapist Relationship Specialty Start Date End Date Wali Pak MD [address] [place] [address] PCP - General Internal Medicine 12/30/15 documented as of this encounter
--- OUTSIDE RECORDS SUMMARY | 2024-10-13 16:12 | XMS_ITS | Encounter Summary ---
Author Organization [facility] Healthcare Address [address] [place] [address] Care Team Providers Care Low Pressure Firer Name Role Phone Wali Pak MD Primary Care Provider +1- [phone] Encounter Details Date Type Department Care Team (Late st Contact Info) Description 09/19/2024 Telephone [place] [employer] Mud Analysis Captain at [address] [place] [id number] Alfred Carreno MA Social History Tobacco Use Types Packs/Day Years Used Date Smoking Tobacco: Former Cigarettes 0.1 25 0 12/24/1993 - 12/24/2018 Smokeless Tobacco: Never Alcohol Use Standard Drinks/Week Comments Yes 0 (1 standard drink = 0.6 oz pur e alcohol) AUDIT-C Answer Date Recorded Q1: How often do you have a drink containing alc ohol? Monthly or less 12/25/2019 Average Number of Drinks Not on file 020 Frequency of Binge Drinking Not on file 11/2019 PHQ-2 Answer Date Recorded PHQ-2 Total Score (If total score is 3 or more points, staff should administer the PHQ-9) 0 12/25/2019 Comments No Sex and Gender Information Value Date Recorded Sex Assigned at Not on file Legal Sex Female 1:15 AM PROVIDER ENROLLMENT SPECIALIST Gender Identity Not on file Sexual Orientation Not on file documented as of this encounter Miscellaneous Notes * Telephone Encounter - Alfred Carreno MA - 09/19/2024 1:02 PM CST advised IDER ENROLLMENT SPECIALIST * Telephone Encounter - Alfred Carreno MA - 09/19/2024 8:52 AM CST Patient called stating that she has only been taking the Lasix that you had added the other day. She has not started the others and states BP has been fine. She wants to wait until after echo to see if others are really needed. IDER ENROLLMENT SPECIALIST documented in this encounter Plan of Treatment Not on file documented as of this encounter Visit Diagnoses Not on filedocumented in this encounter Care Teams Low Pressure Firer Relationship Specialty Start Date End Date Wali Pak MD [address] [place] [address] PCP - General 03/26/20 documented as of this encounter
--- OUTSIDE RECORDS SUMMARY | 2024-10-13 16:12 | XMS_ITS | Encounter Summary ---
Author Organization [facility] Healthcare Address [address] [place] [address] Care Team Providers Care Talent Scout Name Role Phone Wali Pak MD Primary Care Provider +1- [phone] Encounter Details Date Type Department Care Team (Late st Contact Info) Description 09/18/2024 7:20 AM PEDIATRIC OPHTHALMOLOGIST [address] [address] Paroxysmal atrial flutter (CMS/HCC) (HCC) Social History Tobacco Use Types Packs/Day Years [...] on file Legal Sex Female 1:15 AM PEDIATRIC OPHTHALMOLOGIST Gender Identity Not on file Sexual Orientation Not on file documented as of this encounter Plan of Treatment Not on file documented as of this encounter Procedures Procedure Name Priority Date/Time Associated Diagnosis Comments EGFR Routine 09/18/2024 7:20 AM PEDIATRIC OPHTHALMOLOGIST Paroxysmal atrial flutter (CMS/HCC) (HCC) DIFFERENTIAL AUTO Routine 09/18/2024 7:2 0 AM PEDIATRIC OPHTHALMOLOGIST Paroxysmal atrial flutter (CMS/HCC) (HCC) IRON PROFILE W/ IBC Routine 09/18/2024 7 :20 AM PEDIATRIC OPHTHALMOLOGIST Paroxysmal atrial flutter (CMS/HCC) (HCC) CBC WITH AUTO DIFFERENTIAL Routine 09/18/2024 7:20 AM PEDIATRIC OPHTHALMOLOGIST Paroxysmal atrial flutter (CMS/HCC) (HCC) LIPID PANEL Routine 09/18/2024 7:20 AM PEDIATRIC OPHTHALMOLOGIST Paroxysmal atrial flutter (CMS/HCC) (HCC) BASIC METABOLIC PANEL Routine 09/18/2024 7:20 AM PEDIATRIC OPHTHALMOLOGIST Paroxysmal atrial flutter (CMS/HCC) (HCC) documented in this encounter Results * eGFR (09/18/2024 7:20 AM PEDIATRIC OPHTHALMOLOGIST) eGFR >90 >=60 mL/min/1. 73 m2 Comment: Interpretive Data Reference Interval Normal ?>/= 90 mL/min/1.73m2 Mildly decreased* ? 60 - 89 mL/min/1.73m2 Mildly to moderately decreased ?45 - 59 mL/min/1.73m2 Moderately to severely decreased ??30 - 44 mL/min/1.73m2 Severely decreased ?15 - 29 mL/min/1.73m2 Kidney Failure ?< 15 ??mL/min/1.73m2 *Relative to young adult level Estimated glomerular filtration rate is determined by the 2021 CKD-EPI equation recommended by the National Kidney Foundation (A Unifying Approach to GFR Estimation: Recommendations of the NKF-ASK Task Force on Reassessing the Inclusion of Race in Diagnosing Kidney Disease, JASN 2020). The CKD-EPI equation should not be used for patients with unstable renal function and has not been validated in children and those over 70. Current interpretive data was last reviewed 2021. Blood 09/18/2024 7:20 AM PEDIATRIC OPHTHALMOLOGIST 09/18/2024 8:06 AM PEDIATRIC OPHTHALMOLOGIST us Casimiro Gonzalez DRIVING TEACHER LAB BLOOD ORDERABLES Final R esult [facility] ([place]) [facility] Department of Laboratories [place], [place] [id number] * Differential, auto (09/18/2024 7:20 AM PEDIATRIC OPHTHALMOLOGIST) Neutrophil abs 3.8 1.5 - 6.5 K/cumm Imm gran abs 0.0 0.0 - 0.1 K/cumm [facility] ([place]) Lymphocyte abs 2.0 0.8 - 3.3 K/cumm [facility]) Monocyte abs 0.5 0.2 - 0.8 K/cumm [facility]) Eosinophil abs 0.3 0.0 - 0.5 K/cumm [facility]) Basophil abs 0.0 0.0 - 0.1 K/cumm [facility]) Neutrophil pct 56.4 % [facility] Comment: Interpretive Data Percent cell count reference ranges are not reported, since discordance with absolute values may lead to misinterpretation of CBC data. Current Interpretive Data was last revised on 2018. Imm gran pct 0.2 % [facility]) Comment: Interpretive Data Percent cell count reference ranges are not reported, since discordance with absolute values may lead to misinterpretation of CBC data. Current Interpretive Data was last revised on 2018. Lymphocyte pct 30.7 % [facility]) Comment: Interpretive Data Percent cell count reference ranges are not reported, since discordance with absolute values may lead to misinterpretation of CBC data. Current Interpretive Data was last revised on 2018. Monocyte pct 7.5 % [facility] ([place]) Comment: Interpretive Data Percent cell count reference ranges are not reported, since discordance with absolute values may lead to misinterpretation of CBC data. Current Interpretive Data was last revised on 2018. Eosinophil pct 4.7 % [facility] Comment: Interpretive Data Percent cell count reference ranges are not reported, since discordance with absolute values may lead to misinterpretation of CBC data. Current Interpretive Data was last revised on 2018. Basophil pct 0.5 % [facility]) Comment: Interpretive Data Percent cell count reference ranges are not reported, since discordance with absolute values may lead to misinterpretation of CBC data. Current Interpretive Data was last revised on 2018. Blood 09/18/2024 7:20 AM PEDIATRIC OPHTHALMOLOGIST 09/18/2024 8:06 AM PEDIATRIC OPHTHALMOLOGIST us Casimiro Gonzalez DRIVING TEACHER LAB BLOOD ORDERABLES Final R esult [facility] Department of Laboratories [place] [id number] * Basic metabolic panel (09/18/2024 7:20 AM PEDIATRIC OPHTHALMOLOGIST) Sodium 139 135 - 145 mmol/L Potassium, pl 4.2 3.3 - 4.9 mmol/L [facility] Chloride 104 97 - 110 mmol/L [facility] CO2 29 22 - 32 mmol/L [facility]) Anion gap 6 2 - 15 mmol/L [facility]) BUN 17 6 - 25 mg/dL [facility] Creatinine 0.70 0.60 - 1.10 mg/dL [facility] Glucose 125 70 - 199 mg/dL [facility]) Comment: Interpretive Data Fasting glucose >/= 126 mg/dl is diagnostic for diabetes. ?? Fasting is defined as no caloric intake for at least 8 hours. Fasting glucose between 100 mg/dl to 125 mg/dl is diagnostic of prediabetes. In a patient with classic symptoms of hyperglycemia or hyperglycemic crisis, a random glucose >/= 200 mg/dl is diagnostic for diabetes. In the absence of unequivocal hyperglycemia, results should be confirmed by repeat testing. The classification and Diagnosis of Diabetes Diabetes Care 202; 46: S19-S40. Current interpretive data was last revised 2022. Calcium 9.7 8.5 - 10.3 mg/dL [facility]) Blood 09/18/2024 7:20 AM PEDIATRIC OPHTHALMOLOGIST 09/18/2024 8:06 AM PEDIATRIC OPHTHALMOLOGIST us Casimiro Gonzalez DRIVING TEACHER LAB BLOOD ORDERABLES Final R esult [facility] ([place]) [facility] Department [place] [address] * (ABNORMAL) CBC with auto differential (09/18/2024 7:20 AM PEDIATRIC OPHTHALMOLOGIST) WBC 6.6 3.8 - 9.9 K/cumm Hgb 14.0 11.9 - 15.5 g/dL [facility] Hct 43.9 35.6 - 45.5 % [facility] Plt 268 150 - 400 K/cumm [facility]) MPV 10.2 9.1 - 12.3 fL [facility] RBC 4.70 3.90 - 5.20 M/cumm [facility]) MCV 93.4 81.3 - 96.4 fL [facility] MCH 29.8 27.1 - 33.3 pg [facility]) MCHC 31.9(L) 32.3 - 35.7 g/dL [facility]) RDW CV 13.7 11.1 - 14.9 % [facility] RDW SD 47.1 35.7 - 48.1 fL [facility]) NRBC abs 0.00 0.00 - 0.01 K/cumm [facility]) Blood 09/18/2024 7:20 AM PEDIATRIC OPHTHALMOLOGIST 09/18/2024 8:06 AM PEDIATRIC OPHTHALMOLOGIST us Casimiro Joseph Gonzalez DRIVING TEACHER LAB BLOOD ORDERABLES Final R esult [facility] ([place]) [facility] Department [place] [address] * (ABNORMAL) Lipid panel (09/18/2024 7:20 AM PEDIATRIC OPHTHALMOLOGIST) Cholesterol 195 30 - 199 mg/dL Comment: Interpretive Data Ages < or = 19 years ??Acceptable: ? <170 mg/dL ??Borderline high: ??170-199 mg/dL ??High: ? >or= 200 mg/dL Ages > or = 20 years ??Desirable: ?<200 mg/dL ??Borderline high: ??200-239 mg/dL ??High: ? >or= 240 mg/dL Literature References: 1. Expert Panel on Integrated Guidelines for Cardiovascular Health and Risk Reduction in Children and Adolescents. Pediatrics 2011;128:S213 2. NCEP Expert Panel. Circulation 2004;110:227 Current Interpretive Data was last revised on 2018. Triglycerides 82 <=149 mg/dL [facility] ([place]) Comment: Interpretive Data Ages < or = 9 years ??Acceptable: ? <75 mg/dL ??Borderline high: ??75-99 mg/dL ??High: ? >or= 100 mg/dL Ages 10 to 20 years ??Acceptable: ? <90 mg/dL ??Borderline high: ??90-129 mg/dL ??High: ? >or= 130 mg/dL Ages > or = 20 years ??Desirable: ?<150 mg/dL ??Borderline high: ??150-199 mg/dL ??High: ? 200-499 mg/dL ?Very high: ?? >or= 499 mg/dL Literature References: 1. Expert Panel on Integrated Guidelines for Cardiovascular Health and Risk Reduction in Children and Adolescents. Pediatrics 2011;128:S213 2. NCEP Expert Panel. Circulation 2004;110:227 Current Interpretive Data was last revised on 2018. HDL 42 >=40 mg/dL [facility]) Comment: Interpretive Data Ages < or = 19 years ??Acceptable: ? >45 mg/dL ??Borderline low: ?? 40-45 mg/dL ??Low: ? <40 mg/dL Ages > or = 20 years ??Desirable: ?>or= 60 mg/dL ??Low: ? <40 mg/dL Literature References: 1. Expert Panel on Integrated Guidelines for Cardiovascular Health and Risk Reduction in Children and Adolescents. Pediatrics 2011;128:S213 2. NCEP Expert Panel. Circulation 2004;110:227 Current Interpretive Data was last revised on 2018. LDL, calculated 138(H) <=129 mg/dL [facility]) Comment: Interpretive Data Ages < or = 19 years ??Acceptable: ? <110 mg/dL ??Borderline high: ??110-129 mg/dL ??High: ?>or= 130 mg/dL Ages > or = 20 years ??Optimal: ? <100 mg/dL ??Near optimal: ?100-129 mg/dL ??Borderline high: ?? 130-159 mg/dL ??High: ?>160 mg/dL Calculated using the Sergey LDL-C estimating equation. This equation was implemented on 2024. Prior to this date LDL-C was estimated using the Friedewald equation. Literature References: 1. Expert Panel on Integrated Guidelines for Cardiovascular Health and Risk Reduction in Children and Adolescents. Pediatrics 2011;128:S213 2. NCEP Expert Panel. Circulation 2004;110:227 3. Sergey Ocampo et al. ARAM Cardiol. 2020 February 22;5(5):540-548. doi: 10.1001/jamacardio.2020.0013 Current Interpretive Data was last revised on 2024. Non-HDL Cholesterol 153 mg/dL [facility]) Comment: Interpretive Data Ages < or = 19 years ??Acceptable: ?<120 mg/dL ??Borderline high: ??120-144 mg/dL ??High: ?>145 mg/dL Ages > or = 20 years ??When triglycerides are >200 mg/dL, Non-HDL cholesterol is a secondary target of ? therapy with treatment goals that are 30 mg/dL greater than the LDL cholesterol target. ? Literature References: 1. Expert Panel on Integrated Guidelines for Cardiovascular Health and Risk Reduction in Children and Adolescents. Pediatrics 2011;128:S213 2. NCEP Expert Panel. Circulation 2004;110:227 Current Interpretive Data was last revised on 2018. Chol/HDL ratio 5 [facility] ([place]) Blood 09/18/2024 7:20 AM PEDIATRIC OPHTHALMOLOGIST 09/18/2024 8:06 AM PEDIATRIC OPHTHALMOLOGIST us Casimiro Gonzalez NP LAB BLOOD ORDERABLES Final R esult [facility] ([place]) [facility] [place] [address] * Iron profile w/ IBC (09/18/2024 7:20 AM PEDIATRIC OPHTHALMOLOGIST) Iron 75 35 - 145 mcg/dL TIBC 290 250 - 400 mcg/dL [facility] ([place]) Transferrin saturation 26 20 - 50 % [facility]) Blood 09/18/2024 7:20 AM PEDIATRIC OPHTHALMOLOGIST 09/18/2024 8:06 AM PEDIATRIC OPHTHALMOLOGIST Casimiro Gonzalez NP LAB BLOOD ORDERABLES Final R esult [facility] ([place]) [facility] [place] [address] documented in this encounter Visit Diagnoses Diagnosis Paroxysmal atrial flutter (CMS/HCC) (HCC) documented in this encounter Care Teams Talent Scout Relationship Specialty Start Date End Date Wali Pak MD [address] [place] [address] PCP - General 03/26/20 documented as of this encounter
--- OUTSIDE RECORDS SUMMARY | 2024-10-13 16:12 | XMS_ITS | Encounter Summary ---
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, right Procedures EMG/NCV - Ferdinand Arellano PA [address] [place] [address] [address] [place] [address] Phone: tel: fax: [address] [phone] Referral ID Status Reason Start Date Expiration Date V isits Requested Visits Authorized [id number] Pending Review 01/18/2024 02/16/2025 1 1 * Consultation (Routine) - Pending Review Specialty Diagnoses / Procedures Referred By Darío alston Referred To Contact Occupational Therapy Diagnoses 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, right (Primary Dx); Carpal tunnel syndrome of right wrist; Cubital tunnel syndrome on right Social History Tobacco Use Types Packs/Day Years [...] on file 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 Gender Identity Not on file Sexual Orientation Not on file documented as of this encounter Last Filed Vital Signs Vital Sign Reading Time Taken Comments Blood Pressure 137/84 01/18/2024 9:30 AM CDT Pulse 39 01/18/2024 9:30 AM CDT Temperature - - Respiratory Rate - - Oxygen Saturation - - Inhaled Oxygen Concentration - - Weight 109 kg (240 lb 6.4 oz) 01/18/2024 9:30 AM CDT Height 165.1 cm (5' 5 ) 01/18/2024 9:30 AM CDT Body Mass Index 40 01/18/2024 9:30 AM CDT documented in this encounter Progress Notes * Ferdinand Arellano PA - 01/18/2024 9:30 AM CDT Images from the original note were not included. NEW PATIENT VISIT Subjective CHIEF COMPLAINT She had concerns including Pain of the Right Wrist. HISTORY OF PRESENT ILLNESS Patient is a 58-year-old female here today for evaluation of right wrist pain. She has concerns of possible carpal tunnel syndrome. Patient reports that her symptoms have been present for several months but over the past 4 weeks she is noticed that her symptoms that were only present at night time have progressed being present during the day. She describes her symptoms as a numbness at night and now with tingling during the day. She also describes the feeling of coldness and loss of filter assembler strength. She is tried changing her sleeping position and this has not helped her symptoms. Pain Assessment Pain Assessment: 0-10 Pain Score: 4 PAST MEDCIAL HISTORY She has a past medical history of Arthritis, CHF (congestive heart failure) ([facility]/HCC) ([facility]), Depression, OTHER MEDICAL, Type 2 diabetes mellitus ([facility]), and Ventricular tachycardia ([facility]). PAST SURGICAL HISTORY She has a past surgical history that includes section (1995); Appendectomy (2001); Hysterectomy (2011); and Knee arthroscopy (Bilateral, 2018). MEDICATIONS She has a current medication list which includes the following prescription(s): aspirin, atorvastatin, bupropion, furosemide, lorazepam, magnesium, and naproxen. ALLERGIES She is allergic to latex, penicillins, and metformin. SOCIAL HISTORY She reports that she quit smoking about 5 years ago. Her smoking use included cigarettes. She started smoking about 30 years ago. She has a 1.3 pack-year smoking history. She has never used smokelesstobacco. She reports that she does not use drugs. No alcohol history on file. FAMILY HISTORY Her family history includes COPD in her paternal grandmother; Cancer in her mother; Diabetes in herfather and maternal grandmother; Gout in her father; Heart disease in her father and maternal grandmother. REVIEW OF SYSTEMS Review of Systems Constitutional: Negative for chills, fatigue and fever. HENT: Negative for sore throat. Respiratory: Negative for cough and shortness of breath. Cardiovascular: Negative for chest pain. Gastrointestinal: Negative for constipation, nausea and vomiting. Neurological: Positive for weakness and numbness. Negative for dizziness, light- headedness and headaches. Objective PHYSICAL EXAM BP 137/84 Pulse (!) 39 Ht 165.1 cm (5' 5 ) Wt 109 kg (240 lb 6.4 oz) BMI 40.00 kg/m?? Right elbow Inspection The patient has normal inspection of the right elbow. Range of motion The patient has normal range of motion of the right elbow. Neurovascular The patient has normal vascular on the right side of their body. Median: paresthesias and decreased Ulnar: parethesias Tests Tinel's sign: positive Right hand/wrist Inspection The patient has normal inspection of the right hand and wrist. Surgical scar/wound: present. The surgical scar/wound is healed. Intrinsic atrophy: absent. Thenar atrophy: absent Range of motion The patient has normal range of motion of the right wrist. Th patient has normal range of motion of the fingers on the right hand. Strength The patient has 5/5 strength throughout with exceptions as noted below. Interossei: 4/5 Clearing Distribution Clerk: 4/5 Neurovascular The patient has normal vascular on the right side of their body. Test Tinel's sign: positive Median nerve compression: positive Comments: Patient has a positive Tinel's at the carpal tunnel and Guyon's canal. Left hand/wrist Strength The patient has 5/5 strength throughout with exceptions as noted below. REVIEW OF X-RAYS/STUDIES/LABS XR Wrist Right 3 or More Views X-rays of the wrist taken today are reviewed, they are negative for fracture dislocation or osseouslesion. No periosteal reaction or bone destruction. Joint space well maintained. Soft tissues unremarkable. Assessment/Plan Mervat Corrales was seen today for pain. 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 We discussed both conservative andsurgical treatment options for her peripheral neuropathies. We will start her in a short course of occupational therapy to work on these as well as starting with night splinting of the wrist and elbow to prevent extreme flexion while sleeping. We will also order an EMG. Patient will follow up in 4 weeks for re-evaluation and at that time if her symptoms are not improving surgical consultation will be necessary. All questions were addressed today and the patient was instructed to call the office with any questions or concerns. There may be grammatical errors in this note due to use of voice recognition software. 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, right 1 Occurrences starting 01/18/2024 until 01/17/2025 Scheduled Referrals Name Type Priority Associated Diagnoses Order Schedule Ambulatory referral order to Occupational Therapy - Outpatient Referral Routine 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 ??No periosteal reaction or bone destruction. ??Joint space well maintained. ?? Soft tissues unremarkable. 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
--- OUTSIDE RECORDS SUMMARY | 2024-10-13 16:12 | XMS_ITS | Encounter Summary ---
Author Organization [facility] Address [address] [place] [address] Care Team Providers Care Machine Assistant Name Role Phone Wali Pak MD Primary Care Provider [phone] Reason for Referral * Cardiology (Routine) - Closed Specialty Diagnoses / Procedures Referred By Darío alston Referred To Contact Diagnoses Paroxysmal atrial flutter (CMS/HCC) (HCC) Procedures Transthoracic Echo (TTE) Complete W Doppler/CF Marv Hidalgo NP [address] [facility] [address] [facility] [address] [place] [address] Phone: tel: fax: [address] [phone] Referral ID Status Reason Start Date Expiration Date Visits Re quested Visits Authorized [id number] Closed 09/14/2024 10/14/2025 1 1 TRIMMER * Sleep Medicine (Routine) - Pending Review Specialty Diagnoses / Procedures Referred By Darío alston Referred To Contact Diagnoses JERAMY (obstructive sleep apnea) Procedures PSG Marv Hidalgo NP [address] [facility] [address] [place] [address] [place] [address] Phone: tel: fax: [address] [phone] Referral ID Status Reason Start Date Expiration Date V isits Requested Visits Authorized [id number] Pending Review 09/14/2024 10/14/2025 1 1 TRIMMER Reason for Visit * Reason Comments Atrial Fibrillation Encounter Details Date Type Department Care Team (Late st Contact Info) Description 09/14/2024 10:15 AM TOE TRIMMER Office Visit [place] [employer] Advisor at [facility] [address] [facility] [address] [place] [address] Marv Hidalgo NP [address] [place] [address] [address] [place] [address] Typical atrial flutter (CMS/HCC) (HCC) (Primary Dx); Pain in left leg; Paroxysmal atrial flutter (CMS/HCC) (HCC); Tachycardia; Diastolic CHF, acute (CMS/HCC) (HCC); JERAMY (obstructive sleep apnea) Social History Tobacco Use Types Packs/Day Years Used Date Smoking Tobacco: Former Cigarettes 0.1 25 0 12/24/1993 - 12/24/2018 Smokeless Tobacco: Never Tobacco Cessation:Counseling Given: Not Answered Alcohol Use Standard Drinks/Week Comments Yes 0 [...] on file Legal Sex Female 1:15 AM TOE TRIMMER Gender Identity Not on file Sexual Orientation Not on file documented as of this encounter Last Filed Vital Signs Vital Sign Reading Time Taken Comments Blood Pressure 143/82 09/14/2024 10:03 AM TOE TRIMMER Pulse 80 09/14/2024 10:03 AM TOE TRIMMER Temperature - - Respiratory Rate 18 09/14/2024 10:03 AM TOE TRIMMER Oxygen Saturation - - Inhaled Oxygen Concentration - - Weight 109.3 kg (241 lb) 09/14/2024 10:03 AM TOE TRIMMER Height 165.1 cm (5' 5 ) 09/14/2024 10:03 AM TOE TRIMMER Body Mass Index 40.1 09/14/2024 10:03 AM TOE TRIMMER documented in this encounter Ordered Prescriptions Prescription Sig Dispense Quantity Refills Last Filled Start Date End Date furosemide (LASIX) 20 mg tablet Take 1 tablet (20 mg total) by mouth daily 90 tablet 3 09/14/2024 5 spironolactone (ALDACTONE) 25 mg tablet Take 1 tablet (25 mg total) by mouth daily 30 tablet 11 09/14/2024 5 sacubitriL-valsart an (ENTRESTO) 24-26 mg tabletIndications: chronic heart failure Take 0.5 tablets by mouth 2 (two) times a day 90 tablet 3 09/14/2024 5 carvediloL (COREG) 6.25 mg tablet Take 1 tablet (6.25 mg total) by mouth 2 (two) times a day with meals 60 tablet 11 09/14/2024 5 documented in this encounter Progress Notes * Marv Hidalgo NP - 09/14/2024 10:15 AM CST Cardiology note 09/14/2024 This note contains information and findings from prior encounters which remain the same for today'sencounter. I have reviewed and made updates where applicable. Reason for Office Visit: Chief Complaint Patient presents with Atrial Fibrillation loop recorder versus event monitor History of Present Illness: Mervat Ruff is a 59 y.o. female who arrived to the ED 12/25/2019 via EMS. Per EMS, pt was in SVT with a rate of 175-180. Pt was given 2 doses of adenosine en route with no resolve. EMS then gaveversed to pateint and cardioverted with one attempt. Patient reports being asymptomatic other than the recognition of palpitations. Patient was given adenosine and atrial flutter was identified. Patient was subsequently DC cardioverted with 100 joules to sinus rhythm. Pre corrected electrocardiograms are not available for my review 02/07/2020: Since discharge patient has had no persistent recurrence of her dysrhythmia. She has had some short episodes of palpitations without evidence for any compromise. 05/24/2020: Patient presents today in follow-up admitting to 1-2 episodes per month of recurrence of her tachyarrhythmia may last up to 1 hour. She does not feel compromised with this but does have some respiratory distress. 09/27/2020: Patient presents earlier than anticipated because of questions regarding the need for long-term anticoagulation. Patient has had no evidence for recurrence of her atrial dysrhythmia. She has had no dyspnea with activities. Her proBNP had normalized when last checked. 11/29/2020: Patient presents for further discussion about the need of long-term anticoagulation andthe consideration of loop recorder as a monitoring tool. Patient has had no evidence for recurrenceof persistent tachyarrhythmia. Recent complaints of bilateral leg pain and swelling with tightness in the chest and increased shortness of breath 05/27/23 Patient presents to the office today for follow-up. Doing well overall. Denies any issues or concerns. All questions were answered verbalized understanding of plan of care. 09/14/24 Pt seen in office today for follow up. Doing well overall. Ongoing BLE edema. Only takes lasix prn.Will make daily All questions were answered verbalized understanding of plan of care. Weight stable Review of Systems: Review of Systems Constitutional: Negative for weight gain and weight loss. HENT: Negative for nosebleeds and stridor. Eyes: Negative for blurred vision and redness. Cardiovascular: Negative for chest pain, claudication, cyanosis, dyspnea on exertion, irregular heartbeat, leg swelling, near-syncope, orthopnea, palpitations, paroxysmal nocturnal dyspnea and syncope. Respiratory: Negative for shortness of breath and snoring. Hematologic/Lymphatic: Negative for bleeding problem. Does not bruise/bleed easily. Skin: Negative for color change and rash. Musculoskeletal: Negative for back pain and muscle weakness. Gastrointestinal: Negative for bloating and heartburn. Genitourinary: Negative for decreased libido and hematuria. Neurological: Negative for excessive daytime sleepiness and dizziness. Psychiatric/Behavioral: Negative for altered mental status. The patient is not nervous/anxious. Histories: Past Medical History: Diagnosis Date Arthritis osteoarthritis bilateral knees CHF (congestive heart failure) (CMS/HCC) (HCC) Depression HX OTHER MEDICAL Headache, migraine Type 2 diabetes mellitus (HCC) Ventricular tachycardia (HCC) Past Surgical History: Procedure Laterality Date APPENDECTOMY 2002 SECTION 1996 section HYSTERECTOMY 2012 KNEE ARTHROSCOPY Bilateral 2019 Family History Problem Relation Age of Onset Cancer Mother Diabetes Father Gout Father Heart disease Father Diabetes Maternal Grandmother Heart disease Maternal Grandmother COPD Paternal Grandmother Social History Tobacco Use Smoking status: Former Smoker Packs/day: 0.05 Years: 25.00 Pack years: 1.25 Types: Cigarettes Start date: 12/24/1993 Quit date: 12/24/2018 Years since quittin.0 Smokeless tobacco: Never Used Substance Use Topics Alcohol use: Yes Drug use: Never Allergies: Allergies Allergen Reactions Latex Other (See comments) and Rash When wears latex herself Reaction: Rash, Penicillins Other (See comments) and Rash As a child / has had penicillin since then with no problems Reaction: Rash, Metformin Diarrhea Medications: Current Outpatient Medications Medication Sig Dispense Refill aspirin 81 mg capsule Take 162 mg by mouth daily buPROPion (WELLBUTRIN) 100 mg tablet Take 100 mg by mouth daily xzdyotuqra-hgytcfplwgiht-vxitvmqr (ESGIC) 50-325-40 mg per tablet gpyyyikckr-cdhzqstdpflxd-mjzhqiaw55 mg-325 mg-40 mg tablet TAKE 1 TAB BY MOUTH EVERY 6 HOURS NEEDED FOR HEADACHES. furosemide (LASIX) 20 mg tablet Take 20 mg by mouth as needed LORazepam (ATIVAN) 0.5 mg tablet Take 0.5 mg by mouth as needed magnesium 30 mg tablet Take 30 mg by mouth 2 (two) times a day metoprolol XL (TOPROL-XL) 50 mg extended release tablet Take 50 mg by mouth daily rOPINIRole (REQUIP) 0.25 mg tablet as needed No current facility-administered medications for this visit. Vital Signs: Vitals BP 143/82 (BP Location: Right arm, Patient Position: Sitting) Pulse 80 Resp 18 Ht 165.1 cm (5' 5 ) Wt 109.3 kg (241 lb) BMI 40.10 kg/m?? Vitals: 09/14/24 1003 BP: 143/82 Pulse: 80 Resp: 18 Wt Readings from Last 3 Encounters: 09/14/24 109.3 kg (241 lb) 01/18/24 109 kg (240 lb 6.4 oz) 11/10/23 108.5 kg (239 lb 3.2 oz) Body mass index is 40.1 kg/m??. Physical Exam: Physical Exam Constitutional: General: She is not in acute distress. Appearance: Normal appearance. She is well-developed. She is not diaphoretic. HENT: Head: Normocephalic. Neck: Vascular: No JVD. Trachea: No tracheal deviation. Cardiovascular: Rate and Rhythm: Normal rate and regular rhythm. Pulses: Intact distal pulses. No decreased pulses. Carotid pulses are 2+ on the right side and 2+ on the left side. Posterior tibial pulses are 2+ on the right side and 2+ on the left side. Heart sounds: S1 normal and S2 normal. Pulmonary: Effort: Pulmonary effort is normal. Breath sounds: Normal breath sounds. No decreased breath sounds or rhonchi. Abdominal: General: Bowel sounds are normal. Palpations: Abdomen is soft. There is no hepatomegaly. Musculoskeletal: General: Normal range of motion. Skin: General: Skin is warm and dry. Neurological: Mental Status: She is alert and oriented to person, place, and time. Labs: Lab Results Component Value Date INR 1.1 12/25/2019 Lab Results Component Value Date PT 12.2 12/25/2019 Lab Results Component Value Date TSH 2.99 03/26/2020 FREET4 1.04 03/26/2020 Lab Results Component Value Date AST 17 12/25/2019 ALT 24 12/25/2019 ALKPHOS 69 12/25/2019 ALBUMIN 3.8 12/25/2019 Lab Results Component Value Date SODIUM 141 12/26/2019 POTASSIUM 4.3 12/26/2019 CHLORIDE 105 12/26/2019 CO2 27 12/26/2019 ANIONGAP 10 12/26/2019 No results found for: BNP Lab Results Component Value Date SODIUM 141 12/26/2019 SODIUM 139 12/25/2019 SODIUM 137 01/18/2015 POTASSIUM 4.3 12/26/2019 POTASSIUM 4.3 12/25/2019 POTASSIUM 4.1 01/01/2017 CHLORIDE 105 12/26/2019 CHLORIDE 107 12/25/2019 CHLORIDE 104 01/18/2015 CO2 27 12/26/2019 CO2 24 12/25/2019 CO2 24 01/18/2015 BUNSER 13 12/26/2019 BUNSER 13 12/25/2019 BUNSER 12.6 01/18/2015 CREATININE 0.64 12/26/2019 CREATININE 0.69 12/25/2019 CREATININE 0.60 01/18/2015 GFRNAA 100 12/26/2019 GFRNAA 97 12/25/2019 GLUCOSE 102 12/26/2019 CALCIUM 8.8 12/26/2019 CALCIUM 8.5 12/25/2019 CALCIUM 8.8 01/18/2015 ALBUMIN 3.8 12/25/2019 Lab Results Component Value Date SODIUM 141 12/26/2019 POTASSIUM 4.3 12/26/2019 CHLORIDE 105 12/26/2019 CO2 27 12/26/2019 ANIONGAP 10 12/26/2019 BUNSER 13 12/26/2019 CREATININE 0.64 12/26/2019 GLUCOSE 102 12/26/2019 CALCIUM 8.8 12/26/2019 BILITOT 0.9 12/25/2019 PROT 6.0 (L) 12/25/2019 ALBUMIN 3.8 12/25/2019 ALKPHOS 69 12/25/2019 ALT 24 12/25/2019 AST 17 12/25/2019 Lab Results Component Value Date WBC 7.8 12/26/2019 HGB 11.5 (L) 12/26/2019 HCT 36.7 12/26/2019 LABPLAT 263 12/26/2019 MPV 10.3 12/26/2019 RBC 3.79 (L) 12/26/2019 MCV 96.8 (H) 12/26/2019 MCH 30.3 12/26/2019 MCHC 31.3 (L) 12/26/2019 RDWCV 15.0 (H) 12/26/2019 RDWSD 54.1 (H) 12/26/2019 NRBCABS 0.00 12/26/2019 No results found for: CHOL , TRIG , HDL , LDLCALC , NONHDLCHOL , CHOLHDL Radiology Testing: Xr Chest 1 View Result Date: 12/25/2019 Mild left lower lung airspace disease. Differential includes edema, pneumonia, and atelectasis. Electronically signed by: Qamar Rapp M.D. Cardiology Testing: ProBNP: 12/25/2019 NT-proBNP 1,512 (H) EK12/25/201901/13 EKG normal sinus rhythm 02/13 echocardiogram and stress test normal 02/13 venous Doppler negative Echocardiogram 12/26/2019: Conclusions: Normal left ventricular systolic function with no focal wall motion abnormalities. Normal left ventricular size. Normal left ventricular wall thickness. Normal left ventricular diastolic function. Ejection fraction is visually estimated at 60-65 %. There is moderate enlargement of left atrium. Mild mitral valve regurgitation. Mild pulmonary hypertension based on right ventricular systolic pressure. Estimated peak RVSP is 35-40 mmHg. Mild tricuspid regurgitation. Echo 06/16 Conclusions: Mild concentric left ventricular hypertrophy. Ejection fraction is visually estimated at 55 to 60 %. Normal structure of the mitral valve. Mild mitral valve regurgitation. Normal structure of the aortic valve. Normal structure of the tricuspid valve. Trivial regurgitation in the tricuspid valve. Diagnoses and Plan Atrial flutter status post cardioversion resolved currently in sinus rhythm Low chads Vasc score not on anticoagulation Ac/cr dCHF. Shortness of breath with chest tightness Diagnosed to have diabetes Obstructive sleep apnea accounting for mild pulmonary hypertension seen on the echocardiogram HLD- LDL not at goal at last check. Will recheck Recommendation optimize GDMT- added aldactone, coreg, entresto Make lasix daily Recheck echo Venus stress test okay Patient's sleep apnea is not being treated- will refer back to sleep doctor follow-up in 6 months The patient is asked to make an attempt to improve diet and exercise patterns to aid in medical management of this problem. cont lipitor 20mg daily Diagnosis Plan 1. Typical atrial flutter (CMS/HCC) (HCC) 2. Pain in left leg 3. Paroxysmal atrial flutter (CMS/HCC) (HCC) Transthoracic Echo (TTE) Complete W Doppler/CF Basic metabolic panel CBC with auto differential Lipid panel Iron profile w/ IBC 4. Tachycardia 5. Diastolic CHF, acute (CMS/HCC) (HCC) 6. JERAMY (obstructive sleep apnea) PSG Marv Hidalgo NP Cc:Wali Pak MD TRIMMER documented in this encounter Plan of Treatment Scheduled Orders Name Type Priority Associated Diagnoses Orde r Schedule PSG [facility] Routine JERAMY (obstructive sleep apnea) Expected: 09/14/2024, Expires: 09/14/2025 documented as of this encounter Results * TRANSTHORACIC ECHO (TTE) COMPLETE W DOPPLER/CF WO CONTRAST (10/12/2024 7:55 AM TOE TRIMMER) Anatomical Region Laterality Modality Ultrasound 10/12/2024 7:31 AM TOE TRIMMER Narrative 10/12/2024 2:58 PM TOE TRIMMER [address] [place] [address] Echocardiogram Report Patient Name: MERVAT RUFF : 1965 Study Date: 10/12/2024 7:31:48 AM Gender: F Tech: ANUP Location: Echo Lab 2 Ref Provider: MARV HIDALGO ?Height(Cm): BSA: ??Weight(Kg): Quality: Adequate Order Provider: MARV HIDALGO ?? PROCEDURES: Echocardiographic Report: Transthoracic echocardiogram with complete 2D, M-Mode, and color Doppler examination. ?? INDICATIONS: Paroxysmal Atrial Flutter and I48.92 Unspecified atrial flutter. ?? MEASUREMENTS: 2D/MM ?Value ?Range ?Doppler ?Value ? Range EF Teich MM ?59.0 % ? [ 54.0 - 74.0 ] ?SLOAN Vmax ? 2.78 cm2 Estimated EF ? 59 % ?AV Mean PG ? 3 mmHg LVIDd MM ? 6.30 cm ?[ 3.80 - 5.20 ] ?AV Peak Gerry ?1.18 m/s ?[ 1.00 - 1.70 ] LVIDs MM ? 4.30 cm ?[ 2.20 - 3.50 ] ?AV VTI ? 25.95 cm LVPWd MM ? 1.20 cm ?[ 0.60 - 0.90 ] ?LVOT Diam ?2.10 cm IVSd MM ?1.00 cm ?[ 0.60 - 0.90 ] ?LVOT Peak Gerry ?0.94 m/s ?[ 0.70 - 1.10 ] LA Dimension MM ?4.12 cm ?[ 2.70 - 3.80 ] ?LVOT VTI ? 21.43 cm AoR Diam MM ?2.65 cm ?[ 2.70 - 3.70 ] ?MV E Peak Gerry ?0.82 m/s ?[ 0.60 - 1.30 ] ACS MM ? 1.85 cm ? MV A Peak Gerry ?0.90 m/s ?[ 1.00 - 1.20 ] MV Mean PG ? 2 mmHg MV PHT ? 50 msec ? [ 20 - 100 ] MVA ?4.40 MV Decel Time ?173 msec ?[ 104 - 258 ] PV Peak Gerry ?1.18 m/s ?[ 0.40 - 0.80 ] TR Peak Gerry ?2.51 m/s ?[ 1.00 - 2.80 ] TR Peak PG ? 25 mmHg RVSP ? 33.00 mmHg ?[ 10.00 - 36.00 ] E` ? 0.05 m/s E/E` ? 17.29 ? [ <= 10.00 ] PA Pressure ?33.00 mmHg ?[ 10.00 - 36.00 ] 2D/MM ?Value ?Range ?Doppler ?Value ? Range - ?? FINDINGS: Atrial Septum: Normal atrial septum. Left Ventricle: Normal left ventricular systolic function with no focal wall motion abnormalities. Normal left ventricular size. Mild concentric left ventricular hypertrophy. Impaired diastolic relaxation Grade I. Ejection Fraction is estimated to be 59 %. Left Atrium: There is mild enlargement of left atrium. Right Ventricle: Normal right ventricular size. Normal right ventricular systolic function. Right Atrium: The right atrium is normal in size. Aortic Valve: No evidence of hemodynamically significant aortic stenosis by Doppler. Aortic cusps appear mildly sclerotic. Mitral Valve: Mitral valve leaflets appear mildly thickened. Trivial regurgitation of the mitral valve. Pulmonic Valve: Normal structure of the pulmonic valve. Tricuspid Valve: Normal structure of the tricuspid valve. Normal right ventricular systolic pressure. Trivial regurgitation in the tricuspid valve. Pericardium: Normal pericardium with no significant pericardial effusion. Aorta: Descending aorta is normal. There is mild atherosclerosis in the aortic root. IVC: Normal size and normal respiratory collapse consistent with normal right atrial pressure (<5 mmHg). Pulmonary Artery: Pulmonary artery not well visualized. ?? CONCLUSIONS: Normal left ventricular systolic function with no focal wall motion abnormalities. Normal left ventricular size. Mild concentric left ventricular hypertrophy. Impaired diastolic relaxation Grade I. Ejection Fraction is estimated to be 59 %. Normal right ventricular size. Normal right ventricular systolic function. There is mild enlargement of left atrium. Mitral valve leaflets appear mildly thickened. Trivial regurgitation of the mitral valve. No evidence of hemodynamically significant aortic stenosis by Doppler. Aortic cusps appear mildly sclerotic. Normal structure of the tricuspid valve. Normal right ventricular systolic pressure. Trivial regurgitation in the tricuspid valve. Normal pericardium with no significant pericardial effusion. Electronically Signed By: Charley Arana MD 10/12/2024 2:57:57 PM TOE TRIMMER 59 Procedure Note Charley Arana MD - 10/12/[address] [place] [address] Echocardiogram Report Patient Name: MERVAT RUFF : 1965 Study Date: 10/12/2024 7:31:48 AM Gender: F Tech: ANUP Location: Echo Lab 2 Ref Provider: MARV HIDALGO Height(Cm): BSA: Weight(Kg): Quality: Adequate Order Provider: MARV HIDALGO PROCEDURES: Echocardiographic Report: Transthoracic echocardiogram with complete 2D, M-Mode, and color Dopplerexamination. INDICATIONS: Paroxysmal Atrial Flutter and I48.92 Unspecified atrial flutter. MEASUREMENTS: 2D/MM Value Range Doppler ValueRange EF Teich MM 59.0 % [ 54.0 - 74.0 ] SLOAN Vmax 2.78cm2 Estimated EF 59 % AV Mean PG 3 mmHg LVIDd MM 6.30 cm [ 3.80 - 5.20 ] AV Peak Gerry 1.18 m/s[ 1.00 - 1.70 ] LVIDs MM 4.30 cm [ 2.20 - 3.50 ] AV VTI 25.95cm LVPWd MM 1.20 cm [ 0.60 - 0.90 ] LVOT Diam 2.10cm IVSd MM 1.00 cm [ 0.60 - 0.90 ] LVOT Peak Gerry 0.94 m/s[ 0.70 - 1.10 ] LA Dimension MM 4.12 cm [ 2.70 - 3.80 ] LVOT VTI 21.43cm AoR Diam MM 2.65 cm [ 2.70 - 3.70 ] MV E Peak Gerry 0.82 m/s[ 0.60 - 1.30 ] ACS MM 1.85 cm MV A Peak Gerry 0.90 m/s[ 1.00 - 1.20 ] MV Mean PG 2 mmHg MV PHT 50 msec [ 20 - 100 ] MVA 4.40 MV Decel Time 173 msec [ 104 - 258 ] PV Peak Gerry 1.18 m/s [ 0.40 - 0.80 ] TR Peak Gerry 2.51 m/s [ 1.00 - 2.80 ] TR Peak PG 25 mmHg RVSP 33.00 mmHg [ 10.00 - 36.00 ] E` 0.05 m/s E/E` 17.29 [ <= 10.00 ] PA Pressure 33.00 mmHg [ 10.00 - 36.00 ] 2D/MM Value Range Doppler ValueRange - FINDINGS: Atrial Septum: Normal atrial septum. Left Ventricle: Normal left ventricular systolic function with no focal wall motionabnormalities. Normal left ventricular size. Mild concentric left ventricular hypertrophy.Impaired diastolic relaxation Grade I. Ejection Fraction is estimated to be 59 %. Left Atrium: There is mild enlargement of left atrium. Right Ventricle: Normal right ventricular size. Normal right ventricular systolicfunction. Right Atrium: The right atrium is normal in size. Aortic Valve: No evidence of hemodynamically significant aortic stenosis by Doppler.Aortic cusps appear mildly sclerotic. Mitral Valve: Mitral valve leaflets appear mildly thickened. Trivial regurgitation ofthe mitral valve. Pulmonic Valve: Normal structure of the pulmonic valve. Tricuspid Valve: Normal structure of the tricuspid valve. Normal right ventricular systolicpressure. Trivial regurgitation in the tricuspid valve. Pericardium: Normal pericardium with no significant pericardial effusion. Aorta: Descending aorta is normal. There is mild atherosclerosis in the aorticroot. IVC: Normal size and normal respiratory collapse consistent with normal rightatrial pressure (<5 mmHg). Pulmonary Artery: Pulmonary artery not well visualized. CONCLUSIONS: Normal left ventricular systolic function with no focal wall motionabnormalities. Normal left ventricular size. Mild concentric left ventricular hypertrophy.Impaired diastolic relaxation Grade I. Ejection Fraction is estimated to be 59 %. Normal right ventricular size. Normal right ventricular systolicfunction. There is mild enlargement of left atrium. Mitral valve leaflets appear mildly thickened. Trivial regurgitation ofthe mitral valve. No evidence of hemodynamically significant aortic stenosis by Doppler.Aortic cusps appear mildly sclerotic. Normal structure of the tricuspid valve. Normal right ventricular systolicpressure. Trivial regurgitation in the tricuspid valve. Normal pericardium with no significant pericardial effusion. Electronically Signed By: Charley Arana MD 10/12/2024 2:57:57 PM TOE TRIMMER 57 us Marv Hidalgo NP CV ECHO PROCEDURES Final Res ult * Iron profile w/ IBC (09/18/2024 7:20 AM TOE TRIMMER) Iron 75 35 - 145 mcg/dL TIBC 290 250 - 400 mcg/dL [facility] ([place]) Transferrin saturation 26 20 - 50 % [facility] ([place]) Blood 09/18/2024 7:20 AM TOE TRIMMER 09/18/2024 8:06 AM TOE TRIMMER Marv Hidalgo NP LAB BLOOD ORDERABLES Final R esult [facility] ([place]) [address] [facility] [place] [address] * (ABNORMAL) Lipid panel (09/18/2024 7:20 AM TOE TRIMMER) Cholesterol 195 30 - 199 mg/dL Comment: [...] on 2018. Triglycerides 82 <=149 mg/dL [facility] ([place]) Comment: Interpretive Data [...] on 2024. Non-HDL Cholesterol 153 mg/dL [facility] ([place]) Comment: Interpretive Data [...] [facility] ([place]) Blood 09/18/2024 7:20 AM TOE TRIMMER 09/18/2024 8:06 AM TOE TRIMMER us Marvjonelle Hidalgo CLASSIFIER OPERATOR LAB BLOOD ORDERABLES Final R esult [facility] ([place]) [address] [facility] [place] [address] * (ABNORMAL) CBC with auto differential (09/18/2024 7:20 AM TOE TRIMMER) Pathologist [facility] WBC 6.6 3.8 - 9.9 K/cumm Hgb [...] [facility] ([place]) Blood 09/18/2024 7:20 AM TOE TRIMMER 09/18/2024 8:06 AM TOE TRIMMER us Marv Hidalgo CLASSIFIER OPERATOR LAB BLOOD ORDERABLES Final R esult [facility] ([place] [address] [facility] [place] [address] * Basic metabolic panel (09/18/2024 7:20 AM TOE TRIMMER) Pathologist [facility] Sodium 139 135 - 145 mmol/L Potassium, pl 4.2 3.3 - 4.9 mmol/L [facility] ([place]) Chloride 104 97 - 110 mmol/L [facility] ([place]) CO2 29 22 - 32 mmol/L [facility] ([place]) Anion gap 6 2 - 15 mmol/L [facility] ([place]) BUN 17 6 - 25 mg/dL [facility] ([place]) Creatinine 0.70 0.60 - 1.10 mg/dL [facility] ([place]) Glucose 125 70 - 199 mg/dL [facility] ([place]) Comment: Interpretive Data Fasting glucose >/= 126 [...] classification and Diagnosis of Diabetes Diabetes Care 2021; 46: S19-S40. Current interpretive data was last revised 2022. Calcium 9.7 8.5 - 10.3 mg/dL [facility] ([place]) Blood 09/18/2024 7:20 AM TOE TRIMMER 09/18/2024 8:06 AM TOE TRIMMER us Marv Hidalgo CLASSIFIER OPERATOR LAB BLOOD ORDERABLES Final R esult [facility] ([place]) [address] [facility] [place] [address] documented in this encounter Visit Diagnoses Diagnosis Typical atrial flutter (CMS/HCC) (HCC)- Primary Pain in left leg Paroxysmal atrial flutter (CMS/HCC) (HCC) Tachycardia Unspecified tachycardia Diastolic CHF, acute (CMS/HCC) (HCC) JERAMY (obstructive sleep apnea) Obstructive sleep apnea (adult) (pediatric) Paroxysmal atrial flutter (CMS/HCC) (HCC) documented in this encounter Discontinued Medications Medication Sig Discontinue Reason Start Date End Da te furosemide (LASIX) 20 mg tablet Take 1 tablet (20 mg total) by mouth as needed Reorder 02/05/2020 09/14/2024 documented as of this encounter Care Teams Machine Assistant Relationship Specialty Start Date End Date Wali Pak MD [address] [place] [address] PCP - General 03/26/20 documented as of this encounter
--- OUTSIDE RECORDS SUMMARY | 2024-10-13 16:12 | XMS_ITS | Encounter Summary ---
Author Organization [facility] Address [address] [place] [address] Care Team Providers Care Insurance Licensing Supervisor Name Role Phone Wali Pak MD Primary Care Provider [phone]- [phone] Reason for Referral * Consultation (Routine) - Pending Review Specialty Diagnoses / Procedures Referred By Contac t Referred To Contact Physical Therapy Diagnoses Arthritis of right knee Caro Shine MD Phone: tel: fax: [address] [phone] Referral ID Status Reason Start Date Expiration Date Visits Requested Visits Authorized [id number] Pending Review Evaluate and Treat 11/10/2023 12/09/2024 24 13 Question Answer PTRFR PT Evaluate and Treat Therapy options discussed with patient? Yes Location provided for therapy services is: Patient requested/Patient preferred Please select the performing region: [facility] [[id number]] # of visits: 24 Comments [facility] Call pt to schedule 1-2x/week for 8 weeks Evaluate, develop and implement plan of care, and treat right anterior and medial knee pain with moderate arthritis. Flexibility, Neuromuscular re-education, range of motion, strengthening - core and pelvic stability, gluteus medius strengthening, Mobilization, Manual therapy, pain reduction. Modalities PRN. Please provide home exercise program. ODUCTIVE HEALTHCARE ASSISTANT Reason for Visit * Reason Comments Follow-up DOI: ChronicLast OV: 12/02/2022 Encounter Details Date Type Department Care Team (Late st Contact Info) Description 11/10/2023 9:30 AM REPRODUCTIVE HEALTHCARE ASSISTANT Office Visit [facility] Sports Medicine and Primary Care at [address] [place] [address] Caro Shine MD [address] [place] [address] [address] [place], [place] [id number] Arthritis of right knee (Primary Dx); Class 3 severe obesity due to excess calories without serious comorbidity with body mass index (BMI) of 40.0 to 44.9 in adult (HCC); Chronic pain of right knee Social History Tobacco Use Types Packs/Day Years [...] on file Legal Sex Female 1:15 AM REPRODUCTIVE HEALTHCARE ASSISTANT Gender Identity Not on file Sexual Orientation Not on file documented as of this encounter Last Filed Vital Signs Vital Sign Reading Time Taken Comments Blood Pressure 134/73 11/10/2023 9:31 AM REPRODUCTIVE HEALTHCARE ASSISTANT Pulse 73 11/10/2023 9:31 AM REPRODUCTIVE HEALTHCARE ASSISTANT Temperature - - Respiratory Rate - - Oxygen Saturation - - Inhaled Oxygen Concentration - - Weight 108.5 kg (239 lb 3.2 oz) 11/10/2023 9:31 AM REPRODUCTIVE HEALTHCARE ASSISTANT Height 162 cm (5' 3.78 ) 11/10/2023 9:31 AM REPRODUCTIVE HEALTHCARE ASSISTANT Body Mass Index 41.34 11/10/2023 9:31 AM REPRODUCTIVE HEALTHCARE ASSISTANT documented in this encounter Patient Instructions * Patient Instructions* Caro Shine MD - 11/10/2023 9:30 AM REPRODUCTIVE HEALTHCARE ASSISTANT Tips to help your joints feel better: If you are overweight, try to lose some weight. Every pound you carry can be an extra 2-10 pounds of added force on weightbearing joints For the painful joint, try getting extra heat in the morning to the joint, and at the end of the day, try ice or heat (whichever feels best) Keep active and your joints moving, but listen to your body, and pace yourself if needed with periodic rest. Keeping the muscles around a joint strong can help decrease the strain across the joint and help with pain. If interested, physical therapy can often help with pain in larger joints like the hip, knee, shoulders, and back Medications that you can try; if one does not work, you can try another Acetaminophen (Tylenol) 500 mg tablets 1-2 tabs 3 times daily as needed (maximum total dose is 3,000 milligrams in 24 hour period) NSAIDS (do not take if underlying heart or kidney disease): Aleve 1-2 tabs twice a day as needed ORIbuprofen 2-4 tabs three times a day as needed. Please take with food to decrease risk of stomach irritation Topical Diclofenac gel (Voltaren gel, but generics available over the counter): 2-4 grams applied topically every 6 hours. It can take a few days of regular use to see benefit. Do not apply to more than 2 joints at a time Tumeric/curcumin and fish oil - these can sometimes have a anti-inflammatory benefit so can be tried but evidences limited on potential benefit Glucosamine chondroitin 500/400 three times a day may provide some pain relief but may take a monthbefore you see the results; you could take this with one of the above medicines as well. If no benefit after 2-3 months of use, discontinue. Evidence is limited on benefit but can be tried Avocado Soybean Unsaponifiable 300 mg supplement once a day may provide some relief but can take upto 4-6 weeks to see benefit. If no benefit after 2-3 months of use, discontinue. Evidence is limited on benefit but can be tried Parafin wax baths for the hand Topical rubs such as Aspercreme, Bengay, Capsaicin, etc may also help Vwxj-erm-lahofhb lidocaine patches and topical lidocaine rubs can also be tried ODUCTIVE HEALTHCARE ASSISTANT documented in this encounter Progress Notes * Caro Shine MD - 11/10/2023 9:30 AM CST Images from the original note were not included. [facility] Primary [facility] Sports Medicine at [place] [facility] Consult PCP: Wali Pak MD Chief Complaint Patient presents with Right Knee - Follow-up DOI: Chronic Last OV: 12/02/2022 FOLLOW UP VISIT Subjective CHIEF COMPLAINT She had concerns including Follow-up of the Right Knee (DOI: Chronic/Last OV: 12/02/2022). HISTORY OF PRESENT ILLNESS Patient was last seen November of 2022. She is here today for re-evaluation. Symptoms now to medial knee. Pain on start up and at night. Issues started about 3 weeks ago and are different from last year. Had pulling feeling in knee when stood up and that seemed to set it off + swelling. Tx tried - ice, heat. No recent instability No catching or locking Pain Assessment Pain Assessment: 0-10 Pain Score: (Now: 4/10, Worst: 9/10) Pain Location: Knee Pain Orientation: Right Pain Descriptors: Discomfort, Burning, Sharp, Shooting, Throbbing, Radiating, Pressure, Tightness, Sore, Tender Pain Frequency: Intermittent Pain Onset: Gradual Clinical Progression: Gradually worsening MEDICATIONS She has a current medication list which includes the following prescription(s): aspirin, atorvastatin, bupropion, furosemide, lorazepam, magnesium, metoprolol xl, and naproxen. REVIEW OF SYSTEMS Review of Systems Objective PHYSICAL EXAM BP 134/73 Pulse 73 Ht 162 cm (5' 3.78 ) Wt 108.5 kg (239 lb 3.2 oz) BMI 41.34 kg/m?? Ortho Exam right Knee: Inspection: Slight swelling to the medial knee Palpation: Patella mild tenderness, MCL nontender, LCL nontender, Medial Joint street railway line installer , Lateral joint line nontender, Hamstring tendons posteriorly nontender, Quad tendon nontender, Patellar tendon nontender, tibial tuberosity nontender, Pes anserine nontender, Gerdy's Tubercle nontender, Ballottement/effusion: It may be a trace effusion ROM: Patient has pain to the medial joint line with end range of motion and full flexion and full extension Special: Patellar Grind: + Patellar apprehension: no Valgus stress: no laxity with solid end point, no pain at 0 and 30 degrees flexion Varus stress: no laxity with solid end point, no pain at 0 and 30 degrees flexion Ant drawer: no laxity with solid end point, no pain Post drawer: no laxity with solid end point, no pain Tyesha: some discomfort to medial joint line REVIEW OF X-RAYS/STUDIES/LABS Four views of patient's right knee were obtained today while weight-bearing. There is moderate approaching severe joint space narrowing with marginal osteophytosis off of the medial tibiofemoral joint space. There is also moderate patellofemoral degenerative changes. Only mild degenerative changes to the lateral joint space. I do not appreciate any fracture or dislocation. My interpretation of x-rays were discussed at time of appointment but official radiology read is still pending Assessment/Plan Mervat Corrales was seen today for follow-up. Diagnoses and all orders for this visit: Arthritis of right knee - XR Knee Right 4 or More Views; Future - Ambulatory referral order to Physical Therapy -; Future Class 3 severe obesity due to excess calories without serious comorbidity with body mass index (BMI) of 40.0 to 44.9 in adult (HCC) Chronic pain of right knee Patient is struggling with worsening of her knee pain over the last few weeks without any definitive injury. Symptoms may be suggestive of possible degenerative pathology to the medial joint space including arthritis versus possible degenerative meniscal tear. They also component patellofemoral symptoms likely present. Discussed treatment options. Patient is not currently interested in possible corticosteroid injections. Given the degree of arthritis less likely benefit from hyaluronic acid injections. Counseled patient on activity modification, physical therapy, use of [id number]-[id number] pain m edications. Patient was advised to work on healthy diet, exercise and weight loss. We did discuss the role of obesity magnifying underlying degenerative changes. Every additional lb of weight somebody carries can be up to 210 lb of force on the lower body per step with about 2-5 lb walking in 5-10 lb going down stairs or running. An After Visit Summary was printed and given to the patient. She will follow up with me as needed. If she elects to consider corticosteroid injection she will let me know Caro Shine MD ODUCTIVE HEALTHCARE ASSISTANT documented in this encounter Plan of Treatment Scheduled Referrals Name Type Priority Associated Diagnoses Order Schedule Ambulatory referral order to Physical Therapy - Outpatient Referral Routine Arthritis of right knee Expected: 11/11/2023 (Approximate), Expires: 11/10/2024 documented as of this encounter Results * XR Knee Right 4 or More Views (11/10/2023 9:19 AM REPRODUCTIVE HEALTHCARE ASSISTANT) Anatomical Region Laterality Modality Lower Extremities, Knee Right Digital Radiography 11/11/2023 7:40 AM REPRODUCTIVE HEALTHCARE ASSISTANT Narrative 11/11/2023 7:43 AM REPRODUCTIVE HEALTHCARE ASSISTANT EXAM DESCRIPTION: XR KNEE RIGHT 4 OR MORE VIEWS REASON FOR STUDY: pain ?? Pt complains of pain in right knee x 3 weeks. No known injury. Pt has had prior knee scope. Pt says there is a knot medial anterior on knee. ?? TECHNIQUE: 4 ??radiographic view(s) of the ??right knee . ??3 of the views were obtained with weight-bearing. COMPARISON: None FINDINGS: BONES/JOINTS: There is no fracture or bone destruction. ??Moderate to severe osteoarthritis is seen with asymmetric joint space narrowing and osteophyte formation. SOFT TISSUES: There may be some ossification of the medial meniscus.. ?? IMPRESSION: Moderate to severe osteoarthritis. There may be ossification of the medial meniscus. THIS IS AN ELECTRONICALLY VERIFIED FINAL REPORT 11/11/2023 7:43 AM - Electronically signed by ??Wayne HEBERT D: ??11/11/2023 7:43 AM T: Report ID: [id number] Reading Location: ??[id number] Procedure Note Surinder De Jesus MD - 11/11/2023 EXAM DESCRIPTION: XR KNEE RIGHT 4 OR MORE VIEWS REASON FOR STUDY: pain Pt complains of pain in right knee x 3 weeks. No known injury. Pt has had prior knee scope. Pt says there is a knot medial anterior on knee. TECHNIQUE: 4 radiographic view(s) of the right knee . 3 of the viewswere obtained with weight-bearing. COMPARISON: None FINDINGS: BONES/JOINTS: There is no fracture or bone destruction.Moderate to severe osteoarthritis is seen with asymmetric joint space narrowing and osteophyte formation. SOFT TISSUES: There may be some ossification of the medial meniscus.. IMPRESSION: Moderate to severe osteoarthritis. There may be ossification of the medial meniscus. THIS IS AN ELECTRONICALLY VERIFIED FINAL REPORT 11/11/2023 7:43 AM - Electronically signed by Wayne De Jesus M.D. ANUP T: Report ID: [id number] Reading Location: [place] [address] Caro Shine MD IMG XR PROCEDURES Mary l Result documented in this encounter Visit Diagnoses Diagnosis Arthritis of right knee- Primary Class 3 severe obesity due to excess calories without serious comorbidity with body mass index (BMI) of 40.0 to 44.9 in adult (HCC) Chronic pain of right knee Arthritis of right knee documented in this encounter Discontinued Medications Medication Sig Discontinue Reason Start Date End Da te cyclobenzaprine (FLEXERIL) 10 mg tablet Take 10 mg by mouth 3 (three) times a day as needed 11/30/2022 11/10/2023 metFORMIN (GLUCOPHAGE) 500 mg tablet Take 500 mg by mouth 2 (two) times a day with meals 11/10/2023 rOPINIRole (REQUIP) 0.25 mg tablet as needed 02/10/2021 11/10/2023 butalbital-acetaminophen -caffeine (ESGIC) 50-325-40 mg per tablet butalbital-acetamino phen-caffeine 50 mg-325 mg-40 mg tablet TAKE 1 TAB BY MOUTH EVERY 6 HOURS NEEDED FOR HEADACHES. 11/10/2023 documented as of this encounter Care Teams Insurance Licensing Supervisor Relationship Specialty Start Date End Date Wali Pak MD [address] [place] [address] PCP - General 03/26/20 documented as of this encounter
--- OUTSIDE RECORDS SUMMARY | 2024-10-13 16:12 | XMS_ITS | Encounter Summary ---
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 Gender Identity Not on file Sexual Orientation Not on file documented as of this encounter Medications at Time of Discharge aspirin 81 mg capsule Take 162 mg by mouth daily atorvastatin (LIPITOR) 20 mg tablet Take 1 tablet (20 mg total) by mouth daily 90 tablet 3 05/27/2023 buPROPion (WELLBUTRIN) 100 mg tablet Take 1 tablet (100 mg total) by mouth daily 12/28/2019 LORazepam (ATIVAN) 0.5 mg tablet Take 1 tablet (0.5 mg total) by mouth as needed 02/05/2020 magnesium 30 mg tablet Take 1 tablet (30 mg total) by mouth 2 (two) times a day naproxen (NAPROSYN) 500 mg tablet Take 1 tablet (500 mg total) by mouth 2 (two) times a day as needed 11/30/2022 furosemide (LASIX) 20 mg tablet Take 1 tablet (20 mg total) by mouth as needed 02/05/2020 09/14/2024 documented as of this encounter Discharge Disposition Disposition Code Departure Means Destination Discharge to home or self care documented in this encounter Plan of Treatment Not on file documented as of this encounter Visit Diagnoses Not on filedocumented in this encounter Care Teams Diesel Truck Mechanic Relationship Specialty Start Date End Date Wali Pak MD [address] [place] [address] PCP - General 03/26/20 documented as of this encounter
--- OUTSIDE RECORDS SUMMARY | 2024-10-13 16:12 | XMS_ITS | Encounter Summary ---
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, right Ferdinand Arellano PA [address] [place] [address] [address], [place] [address] Phone: tel: fax: [address] [address] Referral ID Status Reason Start Date Expiration Date Visits Requested Visits Authorized [id number] Pending Review Specialty Services Required 01/18/2024 02/16/2025 8 8 Encounter Details Date Type Department Care Team (Late st Contact Info) Description 02/02/2024 9:00 AM CDT Therapy [facility] Occupational Therapy [address] [place] [id number] Sonia Robledo OT Carpal tunnel syndrome of right wrist (Primary Dx); 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 female Referring Provider: Ferdinand Arellano PA [address] [place] [address] [place] [address] Diagnosis: Right cubital tunnel, right carpal tunnel, right ulnar nerve compression at wrist Past Medical History: Diagnosis Date Arthritis osteoarthritis bilateral knees CHF (congestive heart failure) (CMS/HCC) (FORM[facility]LY [facility]) Depression HX OTHER MEDICAL Headache, migraine Type 2 diabetes mellitus ([facility]) Ventricular tachycardia ([facility]ERLY [facility]) Latex, Penicillins, and Metformin Past Surgical History: Procedure Laterality Date APPENDECTOMY 2001 SECTION 1995 section HYSTERECTOMY 2012 KNEE ARTHROSCOPY Bilateral 2019 Subjective: History of present condition: Patient reports 2-3 year history of nighttime right hand paresthesias. She notes that she is now getting paresthesias during the day as well and it has also started in the left side. She was issued a wrist cock up for night wear at her last appointment and has been wearing that through part of the night. She is scheduled for a nerve conduction study the first week ofMay. Date of surgery: NA Surgery details: NA Next MD Appointment: 02/21/24 Current living situation: Lives with spouse Do you feel safe in your home environment?: [x] Yes [] No Prior level of ADL/IADL: Independent Current functional level: ADL Status [] Independent [x] Independent but with increased time or pain [] Requires assistance [] Dependent Details: IADL Status [] Independent [x] Independent but with increased time or pain [] Requires assistance [] Dependent Details: Notes things slipping out of her hand, dropping pen, blow drying hair, stirring in the kitchen makes her right hand go numb. Increasing difficulty with opening containers. Leisure activities [x] Able to participate in leisure activities [] Unable to participate in leisure activities Details: swimming, sewing, grandkids. Sleep [] Reports adequate sleep to support daily routines [x] Reports inadequate sleep to support daily routines Details: Patient reports that she is a poor sleeper and her arm is contributing to that. 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 Work status: [] Not working [] Not working- disabled [] Not working- retired [] Working-with restrictions [x] Working- no restrictions Details: Hand dominance [x] Right [] Left [] Ambidextrous Involved side [x] Right [] Left [] Bilateral Patient's primary goal: To restore function to right hand. History of prior therapy services: None Numbness [x] Yes [] No Location: Tingling [x] Yes [] No Location: Pain at best (in last week): 0/10 Pain at worst (in last week): 9/10 at night right hand Are you taking pain medication? 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 2 - Slightly During the past week, were you limited in your work or other regular daily activities as a result of your arm, shoulder or hand problem? 2 - Slightly Limited Arm, shoulder or hand pain 3 - Moderate Tingling (pins and needles) in your arm, shoulder or hand 4 - Severe During the past week, how much difficulty have you had sleeping because of the pain in your arm, shoulder or hand? 5 - So Much Difficulty that I Can't Sleep Quick DASH Disability/Symptom Score: 50 Objective: Observation: Patient presents with rounded shoulders, mildly kyphotic thoracic region and forward head posture. Palpation: Mild to moderate tenderness with palpation to volar radial and ulnar right wrist as wellas right medial elbow at cubital tunnel. Special tests: Tinel's sign (+) at right (-) at left cubital tunnel, (+) bilateral carpal tunnel and Guyon's canal. Sensory testing: Climax Rigo- right: MND 4.31 , UND 2.83, left: MND 4.31, UND 2.83 AROM: B UE WNL. Strength: B Periscapular strength 3+/5, B shoulder, elbow, forearm 5/5, wrist flex/ext 4+/5 Hand Strength (pounds) Right Left Res Habilitation Assistant 27 40 Lateral pinch 5 8 3 pt pinch 3 6 Treatment Provided: Patient was educated on anatomy related to her nerve compressions a elbow and wrist Patient was educated on use of prefab wrist cock up orthosis use at night. It was recommended that she remove metal stay and adjust to 0 degrees to achieve wrist neutral position at night. Patient was educated on elbow extension towel splint for night wear and handout was issued. This also included instruction on positions and activities to avoid with elbow. HEP was issued and performed in clinic with patient via [email or web address]. Patient was provided email, textand printed copies. Access Code: [email or web address] URL: [email or web address] Date: 02/02/2024 Prepared by: Sonia Robledo Exercises - Doorway Pec Stretch at 90 Degrees Abduction - 3 x daily - 7 x weekly - 1 sets - 5 reps - 30 sec hold - Ulnar Nerve Flossing - 3 x daily - 7 x weekly - 1 sets - 5 reps - Seated Median Nerve [place] - 3 x daily - 7 x weekly - 1 sets - 5 reps - Ulnar Nerve Flossing - 1 x daily - 7 x weekly - 3 sets - 10 reps Assessment: Assessment details: Objectively, patient presents with signs and symptoms in right UE consistent with stated diagonses. She also appears to have emerging symptoms in her median nerve distribution of left hand. Although AROM is WNL, she has decresaed protective sensation in MND bilaterally and strength is limited and preventing full efficient performance of many ADL, IADL and work activities. She will benefit from skilled OT for conservative management of her current symptoms with hopes of avoiding surgery if possible. She did well with initial evaluation and treatment and was receptive to instruction and intervention provided. Pt demonstrated independence/verbalized understanding in: [x] HEP [] Don/doff orthosis [x] All tx listed above [x] Patient education provided this session Impairment list: [] Coordination [] Edema [] Endurance/activity tolerance [] Dexterity [] Flexibility [] Gross motor use [] Muscle tone [x] Pain [] Range of motion [] Scar tissue [x] Sensation [x] Sensory/motor [] Skin integrity [x] Strength Other: Functional Limitations: [x] ADLs [x] IADLs [] Community activities [] Communication [] Education [x] Home management [x] Leisure activities [] Play [] Safety [] Sports [x] Work Other: Environmental Barriers: [] Home [] Work [] Community [x] None Details: Barriers to Therapy: [] Vision [] Hearing [] Cognition [] Transportation [] Financial [x] None Details: Intervention Approach: [] Health promotion [x] Remediation [] Wellness [x] Adaptation [x] Prevention Prognosis: [] Excellent [x] Good [] Fair [] Poor ST) 02/02/24 Patient to report improve paresthesias in right arm at night with no more that 1 awakening over 3 nights. 2) 02/02/24 Patient to improve right cloth neutralizer strength to 35 pounds by 4 weeks. 3) 02/02/24 Patient to improve bilateral periscapular strength to 4-/5 by 4 weeks. LT) 02/02/24 Patient to improve quick dash score to 25 or better by 6 weeks. Plan: Frequency/Duration: 2 x a week for up to 8 visits. Plan Details: Patient education, modalities, nerve gliding activities, tendon gliding, postural reeducation, postural strengthening, adaptive techniques prn, ADL/IADL simulation, therapeutic exercise, functional activities, orthotic fabrication/modification. 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
--- OUTSIDE RECORDS SUMMARY | 2024-10-13 16:12 | XMS_ITS | Encounter Summary ---
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 Gender Identity Not on file Sexual Orientation Not on file documented as of this encounter Plan of Treatment Not on file documented as of this encounter Procedures Procedure Name Priority Date/Time Associated Diagnosis Comments XR KNEE RIGHT 4 OR MORE VIEWS Schedule Routine, Read Routine (OP Routine) 11/10/2023 9:19 AM STRIPPER APPRENTICE Arthritis of right knee documented in this encounter Results * XR Knee Right 4 or More Views (11/10/2023 9:19 AM STRIPPER APPRENTICE) Anatomical Region Laterality Modality Lower Extremities, Knee Right Digital Radiography 11/11/2023 7:40 AM STRIPPER APPRENTICE Narrative 11/11/2023 7:43 AM STRIPPER APPRENTICE EXAM DESCRIPTION: XR KNEE RIGHT 4 OR [...] D: ??11/11/2023 7:43 AM T: Report ID: [id number] Reading Location: ??[id number] Procedure Note Surinder De Jesus MD - [...] De Jesus M.D. ANUP T: Report ID: [id number] Reading Location: [place] [address] Caro Disla MD IMG XR PROCEDURES Mary l Result documented in this encounter Visit Diagnoses Diagnosis Arthritis of right knee documented in this encounter Care Teams Rn Research Relationship Specialty Start Date End Date Wali Pak MD [address] [place] [address] PCP - General 03/26/20 documented as of this encounter
--- OUTSIDE RECORDS SUMMARY | 2024-10-13 16:12 | XMS_ITS | Encounter Summary ---
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, right Ferdinand Arellano PA [address] [place] [address] [address] [address] Phone: tel: fax: [address] [address] Referral ID Status Reason Start Date Expiration Date Visits Requested Visits Authorized [id number] Pending Review Specialty Services Required 01/18/2024 02/16/2025 8 8 Encounter Details Date Type Department Care Team (Late st Contact Info) Description 02/04/2024 7:45 AM CDT Therapy [facility] Occupational Therapy [address] [place] [address] Sonia Robledo OT 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 She reports that she straightened her metal stay in her wrist splint and it seems more comfortable and helping her paresthesias at night some. She also reports that she tried the towel splint at night but only made it about 1/2 way through the night before she took it off in her sleep. Pain: 0/10 Objective: No objective measures this session. Treatment Provided: Arm bike warm up x 6 min, level 3.5 Doorway pec stretch 5 x 30 sec hold Prone mid trap x 20 reps Prone low trap x 20 reps Prone rows, sh ext with ER, HAB 2 x 10 reps with 1# Supine pec stretch on foam roll x 5 min - recommended for home Chin tuck scalene stretch 10 x 10 sec hold Updated HEP Access Code: [email or web address] URL: [email or web address] Date: 02/04/2024 Prepared by: Sonia Robledo Exercises - Doorway Pec Stretch at 90 Degrees Abduction - 2-3 x daily - 7 x weekly - 1 sets - 5 reps - 30 sechold - Ulnar Nerve Flossing - 3 x daily - 7 x weekly - 1 sets - 5 reps - Seated Median Nerve [place] - 3 x daily - 7 x weekly - 1 sets - 5 reps - Ulnar Nerve Flossing - 3 x daily - 7 x weekly - 3 sets - 10 reps - Prone Scapular Retraction with Hand Behind Head - 1 x daily - 7 x weekly - 2 sets - 10 reps - Prone W Scapular Retraction - 1 x daily - 7 x weekly - 2 sets - 10 reps - Supine Chest Stretch on Foam Roll - 1-2 x daily - 7 x weekly - 5 min hold Assessment: Savanna is making initial progress towards established goals at this time. She appears ines benefitting from prescribed therapy and remains appropriate for services at this time to addressconservative management of her nerve compressions and postural reeducation. ST) 02/02/24 Patient to report improve paresthesias in right arm at night with no more that 1 awakening over 3 nights. 2) 02/02/24 Patient to improve right dust mop maker strength to 35 pounds by 4 weeks. 3) 02/02/24 Patient to improve bilateral periscapular strength to 4-/5 by 4 weeks. LT) 02/02/24 Patient to improve quick dash score to 25 or better by 6 weeks. Plan: Continue skilled OT per current POC. 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
--- OUTSIDE RECORDS SUMMARY | 2024-10-13 16:12 | XMS_ITS | Encounter Summary ---
Author Organization 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
--- OUTSIDE RECORDS SUMMARY | 2024-10-13 16:12 | XMS_ITS | Encounter Summary ---
Author Organization [facility] Address [address] [place] [address] Care Team Providers Care High [employer] Learning Support Teacher Name Role Phone Wali Pak MD Primary Care Provider +1- [phone] Reason for Visit * Reason Comments PT Treatment * Consultation (Routine) - Closed Specialty Diagnoses / Procedures Referred By Contac t Referred To Contact Physical Therapy Diagnoses Arthritis of right knee Caro Disla MD Phone: tel: fax: [address] [address] Referral ID Status Reason Start Date Expiration Date V isits Requested Visits Authorized [id number] Closed Specialty Services Required 12/02/2022 01/01/2024 24 24 Encounter Details Date Type Department Care Team (Late st Contact Info) Description 01/18/2023 7:00 AM CDT Therapy [facility] [place] [address] Danyelle Nunez, ELECTRONIC LAB TECHNICIAN Arthritis of right knee (Primary Dx) Social History Tobacco Use Types [...] on file 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 AROM: L knee 5-116 degrees R knee 5-117 degrees Treatment Provided: Recumbent stepper x 10 min, seat @7 Leg Press, 40# x 20 calf pumps Resisted hamstring curls, 40# x 20 Standing: Heel raises x 20 Marching x 20 Hip abd alden x 20 Rocker board fwd and lat static x 1 min LAQ x 15 SAQ x 20 US posterior left knee* Applied Leukotape to low back to low to correct posture HEP: Quad sets Heel slides SLR Sidelying hip abduction Prone hip extension Ice after treatment alden knees--declined Assessment: Savanna is receptive to the current treatment plan Her pain was decreased with the application of tape Plan: Continue PT POC with possible DC at next treatment Start Time: 0700 End Time: 729 Danyelle Nunez PTA documented in this encounter Plan of Treatment Not on file documented as of this encounter Visit Diagnoses Diagnosis Arthritis of right knee- Primary documented in this encounter Care Teams High [employer] Learning Support Teacher Relationship Specialty Start Date End Date Wali Pak MD [address] [place] [address] PCP - General 03/26/20 documented as of this encounter
--- OUTSIDE RECORDS SUMMARY | 2024-10-13 16:12 | XMS_ITS | Encounter Summary ---
Author Organization [facility] Address [address] [place] [address] Care Team Providers Care Testing Coordinator Name Role Phone Wali Pak MD Primary Care Provider +1- [phone] Reason for Visit * Reason Comments PT Treatment * Consultation (Routine) - Closed Specialty Diagnoses / Procedures Referred By Contac t Referred To Contact Physical Therapy Diagnoses Arthritis of right knee Caro Disla MD Phone: tel: fax: [address] [address] Referral ID Status Reason Start Date Expiration Date V isits Requested Visits Authorized [id number] Closed Specialty Services Required 12/02/2022 01/01/2024 24 24 Encounter Details Date Type Department Care Team (Late st Contact Info) Description 01/14/2023 7:00 AM CDT Therapy [facility] [place] [address] Danyelle Nunez, RADIOLOGY EQUIPMENT SERVICER Arthritis of right knee (Primary Dx) Social [...] on file 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 AROM: L knee 5-116 degrees R knee 5-117 degrees Treatment Provided: Recumbent stepper x 10 min, seat @7 Leg Press, 40# x 20 calf pumps Resisted hamstring curls, 40# x 15 Standing: Heel raises x 20 Marching x 20 Hip abd alden x 20 Rocker board fwd and lat static x 1 min LAQ x 15 SAQ x 20 US posterior left knee HEP: Quad sets Heel slides SLR Sidelying hip abduction Prone hip extension Ice after treatment alden knees--declined Assessment: Savanna is receptive to the current treatment plan Alleviated posterior knee pain with correction of her posture Plan: Continue PT POC. Start Time: 0700 End Time: 07 Danyelle Nunez PTA documented in this encounter Plan of Treatment Not on file documented as of this encounter Visit Diagnoses Diagnosis Arthritis of right knee- Primary documented in this encounter Care Teams Testing Coordinator Relationship Specialty Start Date End Date Wali Pak MD [address] [place] [address] PCP - General 03/26/20 documented as of this encounter
--- OUTSIDE RECORDS SUMMARY | 2024-10-13 16:12 | XMS_ITS | Clinical Summary ---
Author Organization [facility] Address [address] [place] [address] Care Team Providers Care Crankshaft Balancer Name Role Phone Wali Pak MD Primary Care Provider [phone]- [phone] Allergies Active Allergy Reactions Criticality Noted Date Comments Latex Other (See comments),Rash Medium 12/30/2015 When wears latex herself Reaction: Rash, ?? Metformin Diarrhea Low 04/13/2023 Penicillins Other (See comments),Rash Medium 12/30/2015 As a child / has had penicillin since then with no problems Reaction: Rash, ?? Medications buPROPion (WELLBUTRIN) 100 mg tablet Take 1 tablet (100 mg total) by mouth daily 0 Active LORazepam (ATIVAN) 0.5 mg tablet Take 1 tablet (0.5 mg total) by mouth as needed 0 Active magnesium 30 mg tablet Take 1 tablet (30 mg total) by mouth 2 (two) times a day Active aspirin 81 mg capsule Take 162 mg by mouth daily Active naproxen (NAPROSYN) 500 mg tablet Take 1 tablet (500 mg total) by mouth 2 (two) times a day as needed 3 Active atorvastatin (LIPITOR) 20 mg tablet Take 1 tablet (20 mg total) by mouth daily 90 tablet 3 3 Active carvediloL (COREG) 6.25 mg tablet Take 1 tablet (6.25 mg total) by mouth 2 (two) times a day with meals 60 tablet 11 4 09/14/20 25 Active sacubitriL-vals thomas (ENTRESTO) 24-26 mg tabletIndicatio ns:chronic heart failure Take 0.5 tablets by mouth 2 (two) times a day 90 tablet 3 4 09/14/20 25 Active spironolactone (ALDACTONE) 25 mg tablet Take 1 tablet (25 mg total) by mouth daily 30 tablet 11 4 09/14/20 25 Active furosemide (LASIX) 20 mg tablet Take 1 tablet (20 mg total) by mouth daily 90 tablet 3 4 09/14/20 25 Active furosemide (LASIX) 20 mg tablet Take 1 tablet (20 mg total) by mouth as needed 0 09/14/20 24 Discontinu ed(Reorder ) Active Problems Problem Noted Date Diagnosed Date Hypomagnesemia 10/11/2023 Hyperlipidemia 05/27/2023 Pain in left leg 05/24/2023 Typical atrial flutter (CMS/HCC) 05/24/2023 Abnormal mammogram 12/02/2022 Menorrhagia 12/02/2022 Postoperative hemorrhage 12/02/2022 Type 2 diabetes mellitus wit hout complication, without long-term current use of insulin (CMS/HCC) 08/10/2022 Bilateral lower extremity edema 01/19/2022 Hyperglycemia 01/19/2022 Other hyperlipidemia 01/19/2022 Restless leg syndrome 01/19/2022 Class 2 obesity due to excess calories in adult 11/29/2020 Assessment & Plan (11/29/2020 9:36 AM COMPUTER REPAIRER): We discussed the importance of weight management has on her health problems and discussed a plan/routine to help with this. Other specified hypothyroidism 10/07/2020 Essential hypertension, benign 09/23/2020 Current use of performance architect anticoagulation 020 Assessment & Plan (05/24/2020 10:14 AM CDT): Patient has had no major bleeding events she will continue with long-term anticoagulation utilizing Eliquis however her insurance has run out due to losing her job and her 's job. She will be looking into patient assistance programs otherwise we will consider warfarin. Paroxysmal atrial flutter ([facility]) 02/07/2020 Assessment & Plan (11/29/2020 9:34 AM COMPUTER REPAIRER): We again discussed the risks and benefits of long-term anticoagulation. Her annualized thromboembolic risk is approximately 1-2% per year and her major bleeding risk is about 1% per year. Patient understands this risk but is concerned that she may not be able to afford the loop recorder monitoring after insertion as she is losing her health insurance. At this time she would prefer not being on oral anticoagulation and on aspirin as an alternative. She understands the risk/benefit/alternative, and I have made the change today. She will continue with antihypertensive control and work on her weight. She has follow-up sleep evaluation later today. Assessment & Plan (09/27/2020 11:23 AM COMPUTER REPAIRER): We discussed the risks and benefits of long-term anticoagulation which at this time still favor her being on anticoagulation. As a reasonable alternative I suggested loop recorder could help monitor for recurrence of her atrial dysrhythmia and the need for long-term anticoagulation could be put on hold, as her thromboembolic risk is marginally better than her bleeding risk. She likes this option and we will try to make this work in the near future. Because of the patient's atrial dysrhythmia and daytime somnolence I have also suggested consultation with Dr. Dash our sleep specialist. Assessment & Plan (05/24/2020 10:15 AM CDT): Despite some evidence for recurrence these episodes have not been terribly persistent or compromising. We plan to continue with conservative management and reassess her heart failure for chronicity with proBNP value. Diastolic CHF, acute ([facility]) 02/07/2020 Trigger thumb of right hand 12/27/2017 Generalized anxiety disorder 09/28/2013 Tachycardia Resolved Problems Problem Noted Date Diagnosed Date Resolved Date Acute systolic congestive he art failure ([facility]) 02/07/2020 Encounters Date Type Department Care Team Description 10/12/2024 6:59 AM COMPUTER REPAIRER - 10/12/2024 11:59 PM COMPUTER REPAIRER Hospital Encounter [facility] Cardiology [address] [place] [id number] Paroxysmal atrial flutter (CMS/HCC) (HCC) Discharge Disposition: Discharge to home or self care 09/19/[address] [facility] [employer] [facility] at [address] [place] [phone] Alfred Carreno MA 09/18/2024 7:20 AM COMPUTER REPAIRER Lab [address] [address] Paroxysmal atrial flutter (CMS/HCC) (HCC) 09/14/2024 10:15 AM COMPUTER REPAIRER Office Visit [place] [employer] [facility] at [address] [place] [phone] Marv Hidalgo NP Typical atrial flutter (CMS/HCC) (HCC) (Primary Dx); Pain in left leg; Paroxysmal atrial flutter (CMS/HCC) (HCC); Tachycardia; Diastolic CHF, acute (CMS/HCC) (HCC); JERAMY (obstructive sleep apnea) from Last 3 Months Surgical History Surgery Date Site/Laterality Comments SECTION 10/25/1995 - 10/24/1996 section APPENDECTOMY 10/25/2001 - 10/24/2002 HYSTERECTOMY 10/25/2011 - 10/24/2012 KNEE ARTHROSCOPY 10/25/2018 - 10/24/2019 Bilateral Medical History Medical History Date Comments Hx Other Medical Headache, migra ine Arthritis osteoarthritis b ilateral knees CHF (congestive heart failure) (CMS/HCC) (HCC) Ventricular tachycardia (HCC) Type 2 diabetes mellitus (HCC) Depression Family History Medical History Relation Name Comments Diabetes Father Gout Father Heart disease Father Diabetes Maternal Grandmother Heart disease Maternal Grandmother Cancer Mother COPD Paternal Grandmother Relation Name Status Comments Father Maternal Grandmother Mother Alive Paternal Grandmother Sister Alive Social History Tobacco Use Types [...] on file Legal Sex Female 1:15 AM COMPUTER REPAIRER Gender Identity Not on file Sexual Orientation Not on file Obstetrics History Last Filed Vital Signs Vital Sign Reading Time Taken Comments Blood Pressure 143/82 09/14/2024 10:03 AM COMPUTER REPAIRER Pulse 80 09/14/2024 10:03 AM COMPUTER REPAIRER Temperature 37 ??C (98.6 ??F) 01/15/2022 9:38 AM CDT Respiratory Rate 18 09/14/2024 10:03 AM COMPUTER REPAIRER Oxygen Saturation 98% 02/21/2021 8:11 AM CDT Inhaled Oxygen Concentration - - Weight 109.3 kg (241 lb) 09/14/2024 10:03 AM COMPUTER REPAIRER Height 165.1 cm (5' 5 ) 09/14/2024 10:03 AM COMPUTER REPAIRER Body Mass Index 40.1 09/14/2024 10:03 AM COMPUTER REPAIRER Plan of Treatment Health Maintenance Due Date Last Done Comments Albumin Creatinine Ratio, Urine 1965 Colon Cancer Screening-Colonoscopy 1965 Hepatitis C Screening 1965 Dilated Eye Exam 1965 Foot Exam 1965 Pneumococcal vaccine <65 (1 of 2 - PCV) 1969 DTaP/Tdap/Td Vaccine (1 - Tdap) 1974 Hepatitis B Screening 1981 Regular Well Visit/Exam 18-64 1981 Zoster Vaccine (1 of 2) 2013 Hemoglobin A1C 06/27/2020 12/26/2019 Depression Screening 12/24/2020 12/25/2019 Breast Cancer Screening-Mammogram 05/26/2024 05/26/2023, 05/26/2023, 07/14/2021, Additional history exists Influenza Vaccine (#1) 2024 Lipid Panel 09/18/2025 09/18/2024, 04/1 03/2024, 10/22/2023, Additional history exists eGFR 09/18/2025 09/18/2024, 030 12/2019, 12/25/2019 Procedures Procedure Name Priority Date/Time Associated Diagnosis Comments TRANSTHORACIC ECHO (TTE) COMPLETE W DOPPLER/CF WO CONTRAST Routine 10/12/2024 7:55 AM COMPUTER REPAIRER Paroxysmal atrial flutter (CMS/HCC) (HCC) EGFR Routine 09/18/2024 7:20 AM COMPUTER REPAIRER Paroxysmal atrial flutter (CMS/HCC) (HCC) DIFFERENTIAL AUTO Routine 09/18/2024 7:2 0 AM COMPUTER REPAIRER Paroxysmal atrial flutter (CMS/HCC) (HCC) BASIC METABOLIC PANEL Routine 09/18/2024 7:20 AM COMPUTER REPAIRER Paroxysmal atrial flutter (CMS/HCC) (HCC) CBC WITH AUTO DIFFERENTIAL Routine 09/18/2024 7:20 AM COMPUTER REPAIRER Paroxysmal atrial flutter (CMS/HCC) (HCC) LIPID PANEL Routine 09/18/2024 7:20 AM COMPUTER REPAIRER Paroxysmal atrial flutter (CMS/HCC) (HCC) IRON PROFILE W/ IBC Routine 09/18/2024 7 :20 AM COMPUTER REPAIRER Paroxysmal atrial flutter (CMS/HCC) (HCC) HEMOGLOBIN A1C Routine 12/26/2019 6:17 AM COMPUTER REPAIRER DIGITAL MAMMOGRAPHY Routine 10/04/2014 1 :46 PM COMPUTER REPAIRER from Last 3 Months or Most Recently Relevant to Health Maintenance Results * TRANSTHORACIC ECHO (TTE) COMPLETE W DOPPLER/CF WO CONTRAST (10/12/2024 7:55 AM COMPUTER REPAIRER) Anatomical Region Laterality Modality Ultrasound 10/12/2024 7:31 AM COMPUTER REPAIRER Narrative 10/12/2024 2:58 PM COMPUTER REPAIRER [address] [place] [address] Echocardiogram Report Patient Name: MERVAT HARO : 1965 Study Date: 10/12/2024 7:31:48 AM Gender: F Tech: Location: Echo Lab 2 Ref Provider: MARV [...] By: Charley Arana MD 10/12/2024 2:57:57 PM COMPUTER REPAIRER 59 Procedure Note Charley Arana MD - 10/12/[address] [place] [address] Echocardiogram Report Patient Name: MERVAT HARO : 1965 Study Date: 10/12/2024 7:31:48 AM [...] By: Charley Arana MD 10/12/2024 2:57:57 PM COMPUTER REPAIRER 59 us Marv Hidalgo NP CV ECHO PROCEDURES Final Res ult * eGFR (09/18/2024 7:20 AM COMPUTER REPAIRER) eGFR >90 >=60 mL/min/1. 73 m2 Comment: Interpretive Data Reference Interval Normal ?>/= 90 mL/min/1.73m2 Mildly decreased* ? 60 - 89 mL/min/1.73m2 Mildly to moderately decreased ?45 - 59 mL/min/1.73m2 Moderately to severely decreased ??30 - 44 mL/min/1.73m2 Severely decreased ?15 - 29 mL/min/1.73m2 Kidney Failure ?< 15 ??mL/min/1.73m2 *Relative to young adult level Estimated glomerular filtration rate is determined by the 2020 CKD-EPI equation recommended by the National Kidney [...] last reviewed 2021. Blood 09/18/2024 7:20 AM COMPUTER REPAIRER 09/18/2024 8:06 AM COMPUTER REPAIRER us Marv Hidalgo NP LAB BLOOD ORDERABLES Final R esult [facility]) 1 [facility] Department of [employer] [place] [address] * Differential, auto (09/18/2024 7:20 AM COMPUTER REPAIRER) Neutrophil abs 3.8 1.5 - 6.5 K/cumm [...] revised on 2018. Blood 09/18/2024 7:20 AM COMPUTER REPAIRER 09/18/2024 8:06 AM COMPUTER REPAIRER Marv Hidalgo MEDICARE INSURANCE SPECIALIST LAB BLOOD ORDERABLES Final R esult Performing Organization Address City/[facility]/ZIP Co de Phone Number [facility] ([place]) 1 [facility] [place] [address] * Iron profile w/ IBC (09/18/2024 7:20 AM COMPUTER REPAIRER) Pathologist [facility] Iron 75 35 - 145 mcg/dL TIBC 290 250 - 400 mcg/dL [facility] ([place]) Transferrin saturation 26 20 - 50 % [facility] ([place]) Blood 09/18/2024 7:20 AM COMPUTER REPAIRER 09/18/2024 8:06 AM COMPUTER REPAIRER Marv Hidalgo MEDICARE INSURANCE SPECIALIST LAB BLOOD ORDERABLES Final R esult Performing Organization Address City/[facility]/ZIP Co de Phone Number [facility] ([place]) 1 [facility] [employer] [place] [address] * (ABNORMAL) CBC with auto differential (09/18/2024 7:20 AM COMPUTER REPAIRER) Pathologist [facility] WBC 6.6 3.8 - 9.9 K/cumm Hgb [...] RDW SD 47.1 35.7 - 48.1 fL [facility] ([facility]) NRBC abs 0.00 0.00 - 0.01 K/cumm [facility] ([facility]) Blood 09/18/2024 7:20 AM COMPUTER REPAIRER 09/18/2024 8:06 AM COMPUTER REPAIRER us Marvjonelle Hidalgo MEDICARE INSURANCE SPECIALIST LAB BLOOD ORDERABLES Final R esult [facility] ([facility]) 1 [facility] Department [place] [address] * (ABNORMAL) Lipid panel (09/18/2024 7:20 AM COMPUTER REPAIRER) Cholesterol 195 30 - 199 mg/dL Comment: [...] on 2018. Triglycerides 82 <=149 mg/dL [facility] ([place]) Comment: Interpretive Data Ages < or [...] mg/dL ??High: ?>160 mg/dL Calculated using the Rincon LDL-C estimating equation. This equation was implemented [...] last revised on 2018. Chol/HDL ratio 5 [facility] ([place]) Blood 09/18/2024 7:2 0 AM COMPUTER REPAIRER 09/18/2024 8:06 AM COMPUTER REPAIRER us Marv Hidalgo MEDICARE INSURANCE SPECIALIST LAB BLOOD ORDERABLES Final R esult [facility] ([place]) 1 [facility] Department [place] [address] * Basic metabolic panel (09/18/2024 7:20 AM COMPUTER REPAIRER) Sodium 139 135 - 145 mmol/L Potassium, pl 4.2 3.3 - 4.9 mmol/L [facility] ([place]) Chloride 104 97 - 110 mmol/L [facility] ([place]) CO2 29 22 - 32 mmol/L [facility] ([place]) Anion gap 6 2 - 15 mmol/L [facility] ([place]) BUN 17 6 - 25 mg/dL [facility] ([place]) Creatinine 0.70 0.60 - 1.10 mg/dL [facility] ([place]) Glucose 125 70 - 199 mg/dL [facility] ([facility]) Comment: Interpretive Data Fasting glucose >/= 126 [...] 2022. Calcium 9.7 8.5 - 10.3 mg/dL [facility] ([facility]) Blood 09/18/2024 7:20 AM COMPUTER REPAIRER 09/18/2024 8:06 AM COMPUTER REPAIRER us Marv Hidalgo MEDICARE INSURANCE SPECIALIST LAB BLOOD ORDERABLES Final R esult Performing Organization Address City/[facility]/ZIP Co de Phone Number [facility] ([facility]) 1 [facility] Department [place] [address] * Hemoglobin A1c (12/26/2019 6:17 AM COMPUTER REPAIRER) Hgb A1C 5.2 4.0 - 5.6 % [facility] ([facility]) Estimated Average Glucose 103 mg/dL [facility] ([facility]) Comment: The ADA recommends reporting an estimated Average Glucose (eAG) with all Hemoglobin A1c results using the equation derived from a study of 507 normal and diabetic adults. ??Minority populations were underrepresented and children were not included. ?? (Diabetes Care 31:8617-3517, 2008). ??The eAG is not equivalent to a fasting glucose. Blood specimen (specimen) 12/26/2019 6:17 AM COMPUTER REPAIRER 12/26/2019 6:52 AM COMPUTER REPAIRER us Vel Camacho DO LAB BLOOD ORDERABLES Final Result [facility] 1 [facility] Department [place] [address] * DIGITAL MAMMOGRAPHY (10/04/2014 1:46 PM COMPUTER REPAIRER) Anatomical Region Laterality Modality Breast Mammography 10/04/2014 1:46 PM COMPUTER REPAIRER Narrative 10/09/2014 11:07 AM COMPUTER REPAIRER Diag Mamm - Addl Views R ??Acc#: ??[id number] DATE OF EXAM: ??Oct 04 2014 CLINICAL HISTORY: Density outer right breast. ??Density medial right breast, additional views recommended for further evaluation. RESULT: A cone compression view was obtained for the region of concern outer right breast. On the cone compression view, the small density outer right breast appears to be due to vascular shadows/superimposition of shadows. ??No discrete mass identified. ??Also no definite suspicious focal density identified on the exaggerated craniocaudal projection. ??Also cone compression view was obtained for the density anterior aspect medial right breast. ??A definite focal density is not identified in this location. ??Some density is see which appear to be due to fibroglandular tissue and superimposition of shadows. ??Also on exaggerated craniocaudal projection, no definite abnormal density identified. ??Also lateromedial projection was obtained. ??No discrete mass identified. Digital technology was employed plus computer- aided detection software (R2) was utilized in interpretation of these images. ??This facility utilizes a reminder system to notify patients of yearly mammograms. IMPRESSION: 1. BENIGN FINDINGS. 2. ANNUAL MAMMOGRAPHIC FOLLOWUP RECOMMENDED. BI-RADS CATEGORY 2 - BENIGN Interpreting Physician: ??GAIL STORM M.D. ??Read on: ??Oct 08 2014 11:52A Transcribed by: ??bossman ?? On: Oct 08 2014 ??3:35P Approved Electronically by: ??GAIL STORM M.D. ??on: ??Oct 09 2014 11:07A Ordering DR: DR RODO GARCIA Attending DR: RODO GARCIA Procedure Note Provider, MD Denice - 02/18/2017 Diag Mamm - Addl Views R Acc#: [id number] DATE OF EXAM: Oct 04 2014 CLINICAL HISTORY: Density outer right breast. Density medial right breast, additionalviews recommended for further evaluation. RESULT: A cone compression view was obtained for the region of concern outerright breast. On the cone compression view, the small density outer rightbreast appears to be due to vascular shadows/superimposition of shadows.No discrete mass identified. Also no definite suspicious focal densityidentified on the exaggerated craniocaudal projection. Also conecompression view was obtained for the density anterior aspect medial rightbreast. A definite focal density is not identified in this location.Some density is see which appear to be due to fibroglandular tissue andsuperimposition of shadows. Also on exaggerated craniocaudal projection,no definite abnormal density identified. Also lateromedial projection wasobtained. No discrete mass identified. Digital technology was employedplus computer-aided detection software (R2) was utilized in interpretationof these images. This facility utilizes a reminder system to notifypatients of yearly mammograms. IMPRESSION: 1. BENIGN FINDINGS. 2. ANNUAL MAMMOGRAPHIC FOLLOWUP RECOMMENDED. BI-RADS CATEGORY 2 - BENIGN Interpreting Physician: GAIL STORM M.D. Read on: Oct 08 2014 11:52A Transcribed by: bossman On: Oct 08 2014 3:35P Approved Electronically by: GAIL STORM M.D. on: Oct 09 2014 11:07A Ordering DR: DR RODO GARCIA Attending DR: RODO GARCIA Historical Provider MD [facility] MAMMO PROCEDURES Mary l Result from Last 3 Months or Most Recently Relevant to Health Maintenance Insurance [facility] IDPA IDPA Advance Directives For more information, please contact: [phone] * Full Code (Latest Code Status on File) Date Activated Date Inactivated Comments 12/25/2019 3:35 PM 12/26/2019 7:10 PM Care Teams Crankshaft Balancer Relationship Specialty Start Date End Date Wali Pak MD [address] [place] [id number] PCP - General 03/26/20
--- OUTSIDE RECORDS SUMMARY | 2024-10-13 16:12 | XMS_ITS | Encounter Summary ---
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 Gender Identity Not on file Sexual Orientation Not on file documented as of this encounter Plan of Treatment Not on file documented as of this encounter Procedures Procedure Name Priority Date/Time Associated Diagnosis Comments XR WRIST RIGHT 3 OR MORE VIEWS Schedule Routine, Read Routine (OP Routine) 01/18/2024 9:21 AM CDT Right wrist pain documented in this encounter Results * XR Wrist Right [...] documented in this encounter Visit Diagnoses Diagnosis Right wrist pain Pain in joint, forearm documented in this encounter Care Teams Ladle Car Operator Relationship Specialty Start Date End Date Wali Pak MD [address] [place] [address] PCP - General 03/26/20 documented as of this encounter
--- OUTSIDE RECORDS SUMMARY | 2024-10-13 16:12 | XMS_ITS | Encounter Summary ---
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 I ordered it. US arterial doppler upper extremities bilateral. Patient advised. * Telephone Encounter - Casimiro Gonzalez NP - 01/18/2024 3:15 PM CDT Is there a test to order tto check blood flow in hands * Telephone Encounter - Alfred Carreno MA - 01/18/2024 2:56 PM CDT Patient called stating she has been having numbness in her hands along with swelling. States she was told by her ortho dr to call here in regards to blood flow. Please advise . documented in this encounter Plan of Treatment Not on file documented as of this encounter Visit Diagnoses Not on filedocumented in this encounter Care Teams Coin Box Inspector Relationship Specialty Start Date End Date Wali Pak MD [address] [place] [address] PCP - General 03/26/20 documented as of this encounter
--- OUTSIDE RECORDS SUMMARY | 2024-10-13 16:12 | XMS_ITS | Encounter Summary ---
Author Organization [facility] Address [address] [place] [address] Care Team Providers Care Government Operations Consultant Name Role Phone Wali Pak MD Primary Care Provider +1- [phone] Reason for Visit * Reason Comments PT Treatment * Consultation (Routine) - Closed Specialty Diagnoses / Procedures Referred By Contac t Referred To Contact Physical Therapy Diagnoses Arthritis of right knee Caro Disla MD Phone: tel: fax: [address] [address] Referral ID Status Reason Start Date Expiration Date V isits Requested Visits Authorized [id number] Closed Specialty Services Required 12/02/2022 01/01/2024 24 24 Encounter Details Date Type Department Care Team (Late st Contact Info) Description 01/20/2023 7:00 AM CDT Therapy [facility] [place] [address] Smitha Leon, GILBERTO Arthritis of right knee (Primary Dx) Social [...] on file Legal Sex 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 She complains of L knee pain more at thistime and feels it may be related to some sciatic pain. She complains of pain throughout L LE, worsewith prolonged sitting or laying down activities. Pain: 0/10 right knee 2/10 left knee(posterior) Objective: AROM: L knee 5-116 degrees R knee 5-117 degrees LEFS: 60/80 Treatment Provided: Recumbent stepper x 10 min, seat @7 Leg Press, 40# x 20 calf pumps Resisted hamstring curls, 40# x 20 Standing: Heel raises x 20 Marching x 20 Hip abd alden x 20 Rocker board fwd and lat static x 1 min LAQ x 15 SAQ x 20 HEP: Quad sets Heel slides SLR Sidelying hip abduction Prone hip extension Assessment: Savanna completed 10 visits of PT intervention. All R knee symptoms have been resolved. Her L knee has been an ongoing issue in recent visits and it may be attributed to some underlying sciatic issues. She has achieved therapy goals at this time, as shown below. She was instructed in somelower body stretching for possible sciatica. She is appropriate for D/C and transition to HEP. Goals: STG 1:: Patient will be independent and compliant with HEP in order to promote optimal PT outcomes.GOAL MET STG 2:: Patient will improve B knee flexion >115 degrees. GOAL MET STG 3:: Patient will improve B knee extension to 0 degrees. GOAL NOT MET LTG 1:: Patient will improve LEFS to >60/80 in order to restore PLOF. GOAL MET LTG 2:: Patient will improve B LE strength to 4+/5 throughout in order to improve her ability to perform transitional movements. GOAL MET LTG 3:: Patient will improve knee pain levels to <3/10 maximally with all activities in order toimprove prolonged standing and walking activities. GOAL MET Plan: D/C PT at this time. Start Time: 701 End Time: 725 Smitha Leon PT, DPT documented in this encounter Plan of Treatment Not on file documented as of this encounter Visit Diagnoses Diagnosis Arthritis of right knee- Primary documented in this encounter Care Teams Government Operations Consultant Relationship Specialty Start Date End Date Wali Pak MD [address] [place] [address] PCP - General 03/26/20 documented as of this encounter
--- OUTSIDE RECORDS SUMMARY | 2024-10-13 16:12 | XMS_ITS | Encounter Summary ---
Author Organization [facility] Address [address] [place] [address] Care Team Providers Care Physician Asst Name Role Phone Wali Pak MD Primary Care Provider +1- [phone] Reason for Referral * Diagnostic Imaging (Routine) - Pending Review Specialty Diagnoses / Procedures Referred By Contac t Referred To Contact Diagnoses Bilateral hand numbness Procedures US Arterial Doppler Upper Extremity Bilateral Casimiro Gonzalez NP [address] [place] [address] [address] [place] [address] Phone: tel: fax: [address] [phone] Referral ID Status Reason Start Date Expiration Date V isits Requested Visits Authorized [id number] Pending Review 01/18/2024 02/16/2025 1 1 Encounter Details Date Type Department Care Team (Late st Contact Info) Description 01/18/2024 Orders Only Agency [employer] at [address] [place] [address] Casimiro Gonzalez NP [address] [facility] [facility] [address] [place] [address] Bilateral hand numbness (Primary Dx) Social History Tobacco Use Types [...] on file 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 Gender Identity Not on file Sexual Orientation Not on file documented as of this encounter Plan of Treatment Scheduled Orders Name Type Priority Associated Diagnoses Orde r Schedule US Arterial Doppler Upper Extremity Bilateral Imaging Schedule Routine, Read Routine (OP Routine) Bilateral hand numbness Expected: 01/18/2024, Expires: 01/17/2025 documented as of this encounter Visit Diagnoses Diagnosis Bilateral hand numbness- Primary Disturbance of skin sensation documented in this encounter Care Teams Physician Asst Relationship Specialty Start Date End Date Wali Pak MD [address] [place] [address] PCP - General 03/26/20 documented as of this encounter
--- OUTSIDE RECORDS SUMMARY | 2024-10-13 16:12 | XMS_ITS | Encounter Summary ---
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 Patient okay to stop BP meds. NG CAR DRIVER * Telephone Encounter - Casimiro Gonzalez NP - 12/13/2023 11:55 AM RACING CAR DRIVER yes NG CAR DRIVER * Telephone Encounter - Alfred Carreno MA - 12/13/2023 11:06 AM CST Patient called wanting to know if she can stop her BP med. She states that she gets dizzy when taking it. Please advise NG CAR DRIVER documented in this encounter Plan of Treatment Not on file documented as of this encounter Visit Diagnoses Not on filedocumented in this encounter Care Teams Layout Technician Relationship Specialty Start Date End Date Wali Pak MD [address] [place] [address] PCP - General 03/26/20 documented as of this encounter
--- OUTSIDE RECORDS SUMMARY | 2024-10-13 16:12 | XMS_ITS | Encounter Summary ---
Author Organization [facility] Address [address] [place] [address] Care Team Providers Care Plc Controls Engineer Name Role Phone Wali Pak MD Primary Care Provider +1- [phone] Reason for Referral * Cardiology (Routine) - Closed Specialty Diagnoses / Procedures Referred By Contac t Referred To Contact Diagnoses Typical atrial flutter (CMS/HCC) (HCC) Procedures Transthoracic Echo (TTE) Complete W Doppler/CF Marv Hidalgo NP Phone: tel: fax: [address] [phone] Referral ID Status Reason Start Date Expiration Date Visits Re quested Visits Authorized [id number] Closed 05/27/2023 06/25/2024 1 1 Reason for Visit * Reason Comments Atrial Fibrillation Encounter Details Date Type Department Care Team (Late st Contact Info) Description 05/27/2023 9:15 AM CDT Office Visit [place] [employer] 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 [address] [place] [address] Marv Hidalgo NP [address] [place] [address] [address] [place], [place] [id number] Typical atrial flutter (CMS/HCC) (HCC) (Primary Dx); Pain in left leg; Diastolic CHF, acute (CMS/HCC) (HCC); Tachycardia; Paroxysmal atrial flutter (CMS/HCC) (HCC); Hyperlipidemia, unspecified hyperlipidemia type Social History Tobacco Use Types Packs/Day Years [...] on file 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 Gender Identity Not on file Sexual Orientation Not on file documented as of this encounter Last Filed Vital Signs Vital Sign Reading Time Taken Comments Blood Pressure 141/77 05/27/2023 9:09 AM CDT Pulse 69 05/27/2023 9:09 AM CDT Temperature - - Respiratory Rate 18 05/27/2023 9:09 AM CDT Oxygen Saturation - - Inhaled Oxygen Concentration - - Weight 111.6 kg (246 lb) 05/27/2023 9:09 AM CDT Height 167.6 cm (5' 6 ) 05/27/2023 9:09 AM CDT Body Mass Index 39.71 05/27/2023 9:09 AM CDT documented in this encounter Ordered Prescriptions Prescription Sig Dispense Quantity Refills Last Filled Start Date End Date atorvastatin (LIPITOR) 20 mg tablet Take 1 tablet (20 mg total) by mouth daily 90 tablet 3 05/27/2023 documented in this encounter Progress Notes * Marv Hidalgo NP - 05/27/2023 9:15 AM CDT Cardiology note 05/27/2023 This note contains information and findings from prior encounters which remain the same for today'sencounter. I have reviewed and made updates where applicable. Reason for Office Visit: Chief Complaint Patient presents with Atrial Fibrillation loop recorder versus event monitor History of Present Illness: Ramesh Haro is a 57 y.o. female who arrived to the ED [...] verbalized understanding of plan of care. Weight Review of Systems: Review of Systems Constitutional: [...] bilateral knees CHF (congestive heart failure) (CMS/HCC) ([facility]) Depression HX OTHER MEDICAL Headache, migraine Type 2 diabetes mellitus ([facility]) Ventricular tachycardia ([facility]) Past Surgical History: Procedure Laterality Date APPENDECTOMY [...] since then with no problems Reaction: Rash, Medications: Current Outpatient Medications Medication Sig Dispense Refill aspirin 81 mg capsule Take 162 mg by mouth daily buPROPion (WELLBUTRIN) 100 mg tablet Take 100 mg by mouth daily drvbpicten-ldmrvkiqinhzl-hvbmuxum (ESGIC) 50-325-40 mg per tablet jgynfhmaxk-ihozbxnsnqucl-iurhjfrq36 mg-325 mg-40 mg tablet TAKE 1 TAB [...] for this visit. Vital Signs: Vitals BP 141/77 (BP Location: Right arm, Patient Position: Sitting) Pulse 69 Resp 18 Ht 167.6 cm (5' 6 ) Wt 111.6 kg (246 lb) BMI 39.71 kg/m?? Vitals: 05/27/23 0909 BP: 141/77 Pulse: 69 Resp: 18 Wt Readings from Last 3 Encounters: 05/27/23 111.6 kg (246 lb) 12/02/22 112.8 kg (248 lb 11.2 oz) 08/06/22 109.8 kg (242 lb) Body mass index is 39.71 kg/m??. Physical Exam: Physical Exam Constitutional: General: [...] NRBCABS 0.00 12/26/2019 No results found for: CHOL, TRIG, HDL, LDLCALC, NONHDLCHOL, CHOLHDL Radiology Testing: Xr Chest 1 View [...] RVSP is 35-40 mmHg. Mild tricuspid regurgitation. Diagnoses and Plan Atrial flutter status post cardioversion resolved currently in sinus rhythm Low chads Vasc score not on anticoagulation Leg swelling with calf tenderness Shortness of breath with chest tightness Diagnosed to have diabetes Obstructive sleep apnea accounting for mild pulmonary hypertension seen on the echocardiogram HLD- LDL not at goal at last check. Will recheck Recommendation Venous Doppler okay Recheck echo Venus stress test okay Patient's sleep apnea is not been optimize she still struggles for a good sleep at night and she isclosely following up with her sleep doctor follow-up in 12 months The patient is asked to make an attempt to improve diet and exercise patterns to aid in medical management of this problem. Keep bp log and report findings back Start lipitor 20mg daily Diagnosis Plan 1. Typical atrial flutter (CMS/HCC) (HCC) Transthoracic Echo (TTE) Complete W Doppler/CF 2. Pain in left leg 3. Diastolic CHF, acute (CMS/HCC) (HCC) Lipid panel 4. Tachycardia 5. Paroxysmal atrial flutter (CMS/HCC) (HCC) 6. Hyperlipidemia, unspecified hyperlipidemia type Marv Hidalgo NP Cc:Wali Pak MD documented in this encounter Plan of Treatment Not on file documented as of this encounter Results * TRANSTHORACIC ECHO (TTE) COMPLETE W DOPPLER/CF WO CONTRAST (06/14/2023 9:10 AM CDT) Anatomical Region Laterality Modality Ultrasound 06/14/2023 8:40 AM CDT Narrative 06/14/2023 3:22 PM CDT [address] [place] [address] Echocardiogram Report Patient Name: RAMESH HARO : 1965 Study Date: 06/14/2023 8:40:38 AM Gender: F Tech: ANUP Location: Echo Lab 2 Ref.Provider: MARV HIDALGO Height(Cm): 165 BSA: 2.23 Weight(Kg): 108.9 Quality: Adequate Order Provider: MARV HIDALGO Procedures: Echocardiographic Report: Transthoracic echocardiogram with complete 2D, M-Mode, and color Doppler examination. Indications: Atrial Flutter. Measurements: 2D/M Mode ?Doppler ? Measurement ?Value ?Normal Range ? Measurement ?Value ?Normal Range ? EF Teich MM ?53.0 ? [ 55.0 - 70.0 ] percent ?SLOAN Vmax ? 2.50 ? [ 2.00 - 4.00 ] cm2 ? LVIDd MM ? 5.30 ? [ 3.90 - 5.30 ] cm ? AV Mean PG ? 6 ?[ 2 - 4 ] mmHg ? LVIDs MM ? 3.80 ? [ 2.30 - 3.90 ] cm ? AV Peak Gerry ?1.19 ? [ 1.00 - 1.70 ] m/s ? LVPWd MM ? 1.10 ? [ 0.60 - 1.00 ] cm ? AV VTI ? 27.93 ?cm ? IVSd MM ?1.30 ? [ 0.60 - 0.90 ] cm ? LVOT Diam ?2.01 ? [ 1.70 - 2.10 ] cm ? LA Dimension MM ?4.55 ? [ 2.70 - 3.80 ] cm ? LVOT Peak Gerry ?0.94 ? [ 0.70 - 1.10 ] m/s ? AoR Diam MM ?2.91 ? [ 2.60 - 3.70 ] cm ? LVOT VTI ? 21.80 ?[ 20.00 - 30.00 ] cm ? ACS MM ? 1.76 ? cm ? MV E Peak Gerry ?0.93 ? [ 0.60 - 1.30 ] m/s ? MV A Peak Gerry ?0.86 ? [ 1.00 - 1.20 ] m/s ? MV Mean PG ? 2 ?[ <= 5 ] mmHg ? MV PHT ? 40 ? [ 20 - 100 ] msec ? MVA ?5.50 ? MV Decel Time ?6 ?[ 104 - 258 ] msec ? PV Peak Gerry ?1.12 ? [ 0.40 - 0.80 ] m/s ? TR Peak Gerry ?2.51 ? [ 1.00 - 2.80 ] m/s ? TR Peak PG ? 25 ? mmHg ? RVSP ? 33.00 ?[ 10.00 - 36.00 ] mmHg ? E` ? 0.07 ? cm/sec ? E/E` ? 13.54 ?[ <= 10.00 ] ? PA Pressure ?33.00 ?[ 10.00 - 36.00 ] mmHg ? - Findings: Atrial Septum: The atrial septum is not well visualized. Left Ventricle: Mild concentric left ventricular hypertrophy. Ejection fraction is visually estimated at 55 to 60 %. Left Atrium: The left atrium is normal in size. Right Ventricle: Normal right ventricular size. Right Atrium: The right atrium is normal in size. Aortic Valve: Normal structure of the aortic valve. Mitral Valve: Normal structure of the mitral valve. Mild mitral valve regurgitation. Pulmonic Valve: Pulmonic valve not well visualized. Tricuspid Valve: Normal structure of the tricuspid valve. Trivial regurgitation in the tricuspid valve. Pericardium: There is an anterior echo free space consistent with epicardial fat pad. Aorta: Normal aortic root. IVC: Normal size and normal respiratory collapse consistent with normal right atrial pressure (<5 mmHg). Conclusions: Mild concentric left ventricular hypertrophy. Ejection fraction is visually estimated at 55 to 60 %. Normal structure of the mitral valve. Mild mitral valve regurgitation. Normal structure of the aortic valve. Normal structure of the tricuspid valve. Trivial regurgitation in the tricuspid valve. Electronically Signed By: Dr Qamar Ramirez 2023-06-14 15:22:09 CDT CC: CC: Procedure Note Qamar Ramirez MD - 06/14/[address] [address] Echocardiogram Report Patient Name: RAMESH HAROPatient ID: [id number] : [id number] Date: 06/14/2023 8:40:38 AM Gender: FAccession #: [id number] Tech: JCLocation: Echo Lab 2 Ref.Provider: MARV HIDALGOHeight(Cm): 165 BSA: 2.23Weight(Kg): 108.9 Quality: AdequateOrder Provider: MARV HIDALGO Procedures: Echocardiographic Report: Transthoracic echocardiogram with complete 2D, M-Mode, and color Dopplerexamination. Indications: Atrial Flutter. Measurements: 2D/M Mode Doppler Measurement Value Normal Range MeasurementValue Normal Range EF Teich MM 53.0 [ 55.0 - 70.0 ] percent SLOAN Vmax2.50 [ 2.00 - 4.00 ] cm2 LVIDd MM 5.30 [ 3.90 - 5.30 ] cm AV Mean PG 6[ 2 - 4 ] mmHg LVIDs MM 3.80 [ 2.30 - 3.90 ] cm AV Peak Vel1.19 [ 1.00 - 1.70 ] m/s LVPWd MM 1.10 [ 0.60 - 1.00 ] cm AV VTI27.93 cm IVSd MM 1.30 [ 0.60 - 0.90 ] cm LVOT Diam2.01 [ 1.70 - 2.10 ] cm LA Dimension MM 4.55 [ 2.70 - 3.80 ] cm LVOT Peak Vel0.94 [ 0.70 - 1.10 ] m/s AoR Diam MM 2.91 [ 2.60 - 3.70 ] cm LVOT VTI21.80 [ 20.00 - 30.00 ] cm ACS MM 1.76 cm MV E Peak Vel0.93 [ 0.60 - 1.30 ] m/s MV A Peak Vel0.86 [ 1.00 - 1.20 ] m/s MV Mean PG 2[ <= 5 ] mmHg MV PHT 40[ 20 - 100 ] msec MVA5.50 MV Decel Time 6[ 104 - 258 ] msec PV Peak Vel1.12 [ 0.40 - 0.80 ] m/s TR Peak Vel2.51 [ 1.00 - 2.80 ] m/s TR Peak PG 25mmHg RVSP33.00 [ 10.00 - 36.00 ] mmHg E`0.07 cm/sec E/E`13.54 [ <= 10.00 ] PA Lguxuoql90.00 [ 10.00 - 36.00 ] mmHg - Findings: Atrial Septum: The atrial septum is not well visualized. Left Ventricle: Mild concentric left ventricular hypertrophy. Ejection fraction isvisually estimated at 55 to 60 %. Left Atrium: The left atrium is normal in size. Right Ventricle: Normal right ventricular size. Right Atrium: The right atrium is normal in size. Aortic Valve: Normal structure of the aortic valve. Mitral Valve: Normal structure of the mitral valve. Mild mitral valve regurgitation. Pulmonic Valve: Pulmonic valve not well visualized. Tricuspid Valve: Normal structure of the tricuspid valve. Trivial regurgitation in thetricuspid valve. Pericardium: There is an anterior echo free space consistent with epicardial fat pad. Aorta: Normal aortic root. IVC: Normal size and normal respiratory collapse consistent with normal rightatrial pressure (<5 mmHg). Conclusions: Mild concentric left ventricular hypertrophy. Ejection fraction isvisually estimated at 55 to 60 %. Normal structure of the mitral valve. Mild mitral valve regurgitation. Normal structure of the aortic valve. Normal structure of the tricuspid valve. Trivial regurgitation in thetricuspid valve. Electronically Signed By: Dr Qamar Ramirez 2023-06-14 15:22:09 CDT CC: CC: us Marv Hidalgo RUBY ON RAILS DEVELOPER CV ECHO PROCEDURES Final Res ult documented in this encounter Visit Diagnoses Diagnosis Typical atrial flutter (CMS/HCC) (HCC)- Primary Pain in left leg Diastolic CHF, acute (CMS/HCC) (HCC) Tachycardia Unspecified tachycardia Paroxysmal atrial flutter (CMS/HCC) (HCC) Hyperlipidemia, unspecified hyperlipidemia type Typical atrial flutter (CMS/HCC) (HCC) documented in this encounter Care Teams Plc Controls Engineer Relationship Specialty Start Date End Date Wali Pak MD [address] [place] [address] PCP - General 03/26/20 documented as of this encounter
--- OUTSIDE RECORDS SUMMARY | 2024-10-13 16:12 | XMS_ITS | Encounter Summary ---
Author Organization [facility] Address [address] [place] [address] Care Team Providers Care Identity Management Consultant Name Role Phone Wali Pak MD Primary Care Provider +1- [phone] Reason for Visit * Reason Comments PT Treatment * Consultation (Routine) - Closed Specialty Diagnoses / Procedures Referred By Contac t Referred To Contact Physical Therapy Diagnoses Arthritis of right knee Caro Disla MD Phone: tel: fax: [address] [address] Referral ID Status Reason Start Date Expiration Date V isits Requested Visits Authorized [id number] Closed Specialty Services Required 12/02/2022 01/01/2024 24 24 Encounter Details Date Type Department Care Team (Late st Contact Info) Description 01/04/2023 7:00 AM CDT Therapy [facility] [place] [address] Danyelle Nunez, WHOLESALE LOAN PROCESSOR Arthritis of right knee (Primary Dx) Social [...] on file 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 Added US to right knee AROM: L knee 5-116 degrees R knee 5-117 degrees Treatment Provided: Recumbent stepper x 10 min, seat @7 Leg Press, 40# x 20 calf pumps Resisted hamstring curls, 40# x 15 Standing Heel raises x 20 Marching x 20 Hip abd alden x 20 Rocker board fwd and lat static x 1 min LAQ x 15 SAQ x 15 US to alden knees x 5 each HEP: Quad sets Heel slides SLR Sidelying hip abduction Prone hip extension Ice after treatment alden knees Assessment: Tolerates all activities well. Added US for pain relief Plan: Continue PT POC. Start Time: 0700 End Time: 0750 Danyelle Nunez PTA documented in this encounter Plan of Treatment Not on file documented as of this encounter Visit Diagnoses Diagnosis Arthritis of right knee- Primary documented in this encounter Care Teams Identity Management Consultant Relationship Specialty Start Date End Date Wali Pak MD [address] [place] [address] PCP - General 03/26/20 documented as of this encounter
--- OUTSIDE RECORDS SUMMARY | 2024-10-13 16:12 | XMS_ITS | Encounter Summary ---
Author Organization [facility] Address [address] [place] [address] Care Team Providers Care Teasel Gig Operator Name Role Phone Wali Pak MD Primary Care Provider +1- [phone] Reason for Visit * Reason Comments PT Treatment * Consultation (Routine) - Closed Specialty Diagnoses / Procedures Referred By Contac t Referred To Contact Physical Therapy Diagnoses Arthritis of right knee Caro Disla MD Phone: tel: fax: [address] [phone] Referral ID Status Reason Start Date Expiration Date V isits Requested Visits Authorized [id number] Closed Specialty Services Required 12/02/2022 01/01/2024 24 24 Encounter Details Date Type Department Care Team (Late st Contact Info) Description 01/12/2023 7:45 AM CDT Therapy [facility] [place] [address] Smitha Leon, GILBERTO Arthritis of right knee [...] on file 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 She complains of burning in the posterior L knee. She reports that she has been on her feet a lot for the last several days. She reports that her L knee pain gets worse as the day and her activity progresses. Pain: 0/10 right knee 2/10 left knee(posterior) [...] LAQ x 15 SAQ x 20 US to alden knees x 5 each (did not perform) HEP: Quad sets Heel slides SLR Sidelying hip abduction Prone hip extension Ice after treatment alden knees--declined Assessment: Did not perform US today to assess effectiveness. Her subjective symptoms have improvedregarding her R knee; however, L knee appears to be increasing with activity. Plan: Continue PT POC. Start Time: 742 End Time: 815 Smitha Leon PT, DPT documented in this encounter Plan of Treatment Not on file documented as of this encounter Visit Diagnoses Diagnosis Arthritis of right knee- Primary documented in this encounter Care Teams Teasel Gig Operator Relationship Specialty Start Date End Date Wali Pak MD [address] [place] [address] PCP - General 03/26/20 documented as of this encounter
--- OUTSIDE RECORDS SUMMARY | 2024-10-13 16:12 | XMS_ITS | Encounter Summary ---
Author Organization Formerly [facility] Address [address] [place] [address] Care Team Providers Care Entry Level Management Name Role Phone Wali Pak MD Primary Care Provider +1- [phone] Reason for Referral * Cardiology (Routine) - Closed Specialty Diagnoses / Procedures Referred By Darío alston Referred To Contact Diagnoses Typical atrial flutter (CMS/HCC) (HCC) Procedures Transthoracic Echo (TTE) Complete W Doppler/CF Marv Hidalgo NP Phone: tel: fax: [address] [phone] Referral ID Status Reason Start Date Expiration Date Visits Re quested Visits Authorized [id number] Closed 05/27/2023 06/25/2024 1 1 Reason for Visit * Cardiology (Routine) - Closed Specialty Diagnoses / Procedures Referred By Darío alston Referred To Contact Diagnoses Typical atrial flutter (CMS/HCC) (HCC) Procedures Transthoracic Echo (TTE) Complete W Doppler/CF Marv Hidalgo NP Phone: tel: fax: [address] [phone] Referral ID Status Reason Start Date Expiration Date Visits Re quested Visits Authorized [id number] Closed 05/27/2023 06/25/2024 1 1 Encounter Details Date Type Department Care Team (Latest Contact Info) Description 06/14/2023 8:12 AM CDT - 06/14/2023 11:59 PM CDT Hospital Encounter [facility] Cardiology [address] [place] [address] Typical atrial flutter (CMS/HCC) (HCC) Discharge Disposition: Discharge [...] on file 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 11/10/2023 cyclobenzaprine (FLEXERIL) 10 mg tablet Take 10 mg by mouth 3 (three) times a day as needed 11/30/2022 11/10/2023 furosemide (LASIX) 20 mg tablet Take 1 tablet (20 mg total) by mouth as needed 02/05/2020 09/14/2024 metFORMIN (GLUCOPHAGE) 500 mg tablet Take 500 mg by mouth 2 (two) times a day with meals 11/10/2023 metoprolol XL (TOPROL-XL) 50 mg extended release tablet TAKE 1 TABLET BY MOUTH TWICE A DAY 180 tablet 3 03/08/2023 01/18/2024 rOPINIRole (REQUIP) 0.25 mg tablet as needed 02/10/2021 11/10/2023 documented as of this encounter Discharge Disposition Disposition Code Departure Means Destination Discharge to home or self care documented in this encounter Plan of Treatment Not on file documented as of this encounter Procedures Procedure Name Priority Date/Time Associated Diagnosis Comments TRANSTHORACIC ECHO (TTE) COMPLETE W DOPPLER/CF WO CONTRAST Routine 06/14/2023 9:10 AM CDT Typical atrial flutter (CMS/HCC) (HCC) documented in this encounter Results * TRANSTHORACIC ECHO (TTE) COMPLETE W DOPPLER/CF WO CONTRAST (06/14/2023 9:10 AM CDT) Anatomical Region Laterality Modality Ultrasound 06/14/2023 8:40 AM CDT Narrative 06/14/2023 3:22 PM CDT [address] [place] [address] Echocardiogram Report Patient Name: RAMESH RUFF : 1965 Study Date: 06/14/2023 8:40:38 AM [...] Procedure Note Qamar Ramirez MD - 06/14/[address] [place] [address] Echocardiogram Report Patient Name: RAMESH RUFFPatient ID: [id number] : [id number] Date: 06/14/2023 8:40:38 AM Gender: FAccession #: [id number] Tech: JCLocation: Echo Lab 2 Ref.Provider: MARV [...] cm/sec E/E`13.54 [ <= 10.00 ] PA Vgkqdkcw07.00 [ 10.00 - 36.00 ] mmHg - [...] 15:22:09 CDT CC: CC: us Marv Hidalgo NP CV ECHO PROCEDURES Final Res ult documented in this encounter Visit Diagnoses Diagnosis Typical atrial flutter (CMS/HCC) (HCC) documented in this encounter Care Teams Entry Level Management Relationship Specialty Start Date End Date Wali Pak MD [address] [place] [address] PCP - General 03/26/20 documented as of this encounter
--- OUTSIDE RECORDS SUMMARY | 2024-10-13 16:12 | XMS_ITS | Encounter Summary ---
Author Organization [facility] Address [address] [place] [address] Care Team Providers Care Health Sciences Dean Name Role Phone Wali Pak MD Primary Care Provider +1- [phone] Reason for Visit * Reason Comments PT Treatment * Consultation (Routine) - Closed Specialty Diagnoses / Procedures Referred By Contac t Referred To Contact Physical Therapy Diagnoses Arthritis of right knee Caro Disla MD Phone: tel: fax: [address] [phone] Referral ID Status Reason Start Date Expiration Date V isits Requested Visits Authorized [id number] Closed Specialty Services Required 12/02/2022 01/01/2024 24 24 Encounter Details Date Type Department Care Team (Late st Contact Info) Description 12/25/2022 7:45 AM JAVA GOLDEN GATE DEVELOPER Therapy [facility] [place] [address] Danyelle Nunez, CHADD Arthritis of right knee (Primary Dx) Social [...] on file Legal Sex Female 1:15 AM JAVA GOLDEN GATE DEVELOPER Gender Identity Not on file Sexual Orientation Not on file documented as of this encounter Progress Notes * Danyelle Nunez PTA - 12/25/2022 7:45 AM CST PT Daily Treatment Note Mervat Terrence Haro 1965 Subjective: Savanna reports her knees feels stiff, but overall they seem to be feeling better. Pain: 1/10 right knee 3/10 left knee(medial) Objective: See treatment provided. Added US to left knee AROM: L knee 5-116 degrees R knee 5-117 degrees Treatment Provided: Recumbent stepper x 10 min, seat @7 Leg Press, 40# x 15 Resisted hamstring curls, 40# x 15 Standing Heel raises Marching Hip abd alden Rocker board fwd and lat static x 1 min LAQ x 15 SAQ x 15 US to left knee HEP: Quad sets Heel slides SLR Sidelying hip abduction Prone hip extension Ice after treatment Assessment: Tolerates all activities well. Added US for pain relief Plan: Continue PT POC. Start Time: 744 End Time: 834 Danyelle Nunez PTA GOLDEN GATE DEVELOPER documented in this encounter Plan of Treatment Not on file documented as of this encounter Visit Diagnoses Diagnosis Arthritis of right knee- Primary documented in this encounter Care Teams Health Sciences Dean Relationship Specialty Start Date End Date Wali Pak MD [address] [place] [address] PCP - General 03/26/20 documented as of this encounter
--- OUTSIDE RECORDS SUMMARY | 2024-10-13 16:12 | XMS_ITS | Encounter Summary ---
Author Organization [facility] Address [address] [place] [address] Care Team Providers Care Purchasing Internship Name Role Phone Wali Pak MD Primary Care Provider +1- [phone] Reason for Visit * Reason Comments PT Treatment * Consultation (Routine) - Closed Specialty Diagnoses / Procedures Referred By Contac t Referred To Contact Physical Therapy Diagnoses Arthritis of right knee Caro Disla MD Phone: tel: fax: [address] [phone] Referral ID Status Reason Start Date Expiration Date V isits Requested Visits Authorized [id number] Closed Specialty Services Required 12/02/2022 01/01/2024 24 24 Encounter Details Date Type Department Care Team (Late st Contact Info) Description 01/06/2023 7:00 AM CDT Therapy [facility] [place] [address] Danyelle Nunez, EXTERMINATION INSPECTOR Arthritis of right knee (Primary Dx) Social [...] on file 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 Significant decrease in pain in alden knees with the addition of US Plan: Continue PT POC. Start Time: 0700 End Time: 07 Danyelle Nunez PTA documented in this encounter Plan of Treatment Not on file documented as of this encounter Visit Diagnoses Diagnosis Arthritis of right knee- Primary documented in this encounter Care Teams Purchasing Internship Relationship Specialty Start Date End Date Wali Pak MD [address] [place] [address] PCP - General 03/26/20 documented as of this encounter
--- OUTSIDE RECORDS SUMMARY | 2024-10-13 16:12 | XMS_ITS | Referral Summary ---
Author Organization [facility] Address [address] [place] [phone] Care Team Providers Care Brush Cleaner Name Role Phone Wali Pak MD Primary Care Provider +1- [phone] Encounters Date Type Department Care Team Description 10/12/2024 6:59 AM MEDICAL LIBRARIAN - 10/12/2024 11:59 PM MEDICAL LIBRARIAN Hospital Encounter [facility] Cardiology [address] [place] [id number] Paroxysmal atrial flutter (CMS/HCC) (HCC) Discharge Disposition: Discharge to home or self care 09/19/2024 Telephone [employer] at [address] [phone] Alfred Carreno MA 09/18/2024 7:20 AM MEDICAL LIBRARIAN Lab [address] [address] Paroxysmal atrial flutter (CMS/HCC) (HCC) 09/14/2024 10:15 AM MEDICAL LIBRARIAN Office Visit [employer] [facility] at [address] [phone] Marv Hidalgo NP Typical atrial flutter (CMS/HCC) (HCC) (Primary Dx); Pain in left leg; Paroxysmal atrial flutter (CMS/HCC) (HCC); Tachycardia; Diastolic CHF, acute (CMS/HCC) (HCC); JERAMY (obstructive sleep apnea) from Last 3 Months Allergies Active Allergy Reactions Criticality Noted Date [...] in left leg 05/24/2023 Typical atrial flutter ([facility]/HCC) 05/24/2023 Abnormal mammogram 12/02/2022 Menorrhagia 12/02/2022 Postoperative hemorrhage 12/02/2022 Type 2 diabetes mellitus wit hout complication, without long-term current use of insulin ([facility]) 08/10/2022 Bilateral lower extremity edema 01/19/2022 Hyperglycemia 01/19/2022 Other hyperlipidemia 01/19/2022 Restless leg syndrome 01/19/2022 Class 2 obesity due to excess calories in adult 11/29/2020 Assessment & Plan (11/29/2020 9:36 AM MEDICAL LIBRARIAN): We discussed the importance of weight management has on her health problems and discussed a plan/routine to help with this. Other specified hypothyroidism 10/07/2020 Essential hypertension, benign 09/23/2020 Current use of intermodal dispatcher anticoagulation 020 Assessment & Plan (05/24/2020 10:14 AM CDT): Patient has had no major bleeding events she will continue with long-term anticoagulation utilizing Eliquis however her insurance has run out due to losing her job and her 's job. She will be looking into patient assistance programs otherwise we will consider warfarin. Paroxysmal atrial flutter ([facility]/HCC) 02/07/2020 Assessment & Plan (11/29/2020 9:34 AM MEDICAL LIBRARIAN): We again discussed the risks and benefits [...] today. Assessment & Plan (09/27/2020 11:23 AM MEDICAL LIBRARIAN): We discussed the risks and benefits of [...] chronicity with proBNP value. Diastolic CHF, acute ([facility]) 02/07/2020 Trigger thumb of right hand 12/27/2017 Generalized anxiety disorder 09/28/2013 Tachycardia Resolved Problems Problem Noted Date Diagnosed Date Resolved Date Acute systolic congestive he art failure ([facility]) 02/07/2020 Social History Tobacco Use Types Packs/Day Years [...] on file Legal Sex Female 1:15 AM MEDICAL LIBRARIAN Gender Identity Not on file Sexual Orientation Not on file Last Filed Vital Signs Vital Sign Reading Time Taken Comments Blood Pressure 143/82 09/14/2024 10:03 AM MEDICAL LIBRARIAN Pulse 80 09/14/2024 10:03 AM MEDICAL LIBRARIAN Temperature 37 ??C (98.6 ??F) 01/15/2022 9:38 AM CDT Respiratory Rate 18 09/14/2024 10:03 AM MEDICAL LIBRARIAN Oxygen Saturation 98% 02/21/2021 8:11 AM CDT Inhaled Oxygen Concentration - - Weight 109.3 kg (241 lb) 09/14/2024 10:03 AM MEDICAL LIBRARIAN Height 165.1 cm (5' 5 ) 09/14/2024 10:03 AM MEDICAL LIBRARIAN Body Mass Index 40.1 09/14/2024 10:03 AM MEDICAL LIBRARIAN Plan of Treatment Not on file Procedures Procedure Name Priority Date/Time Associated Diagnosis Comments TRANSTHORACIC ECHO (TTE) COMPLETE W DOPPLER/CF WO CONTRAST Routine 10/12/2024 7:55 AM MEDICAL LIBRARIAN Paroxysmal atrial flutter (CMS/HCC) (HCC) EGFR Routine 09/18/2024 7:20 AM MEDICAL LIBRARIAN Paroxysmal atrial flutter (CMS/HCC) (HCC) DIFFERENTIAL AUTO Routine 09/18/2024 7:2 0 AM MEDICAL LIBRARIAN Paroxysmal atrial flutter (CMS/HCC) (HCC) BASIC METABOLIC PANEL Routine 09/18/2024 7:20 AM MEDICAL LIBRARIAN Paroxysmal atrial flutter (CMS/HCC) (HCC) CBC WITH AUTO DIFFERENTIAL Routine 09/18/2024 7:20 AM MEDICAL LIBRARIAN Paroxysmal atrial flutter (CMS/HCC) (HCC) LIPID PANEL Routine 09/18/2024 7:20 AM MEDICAL LIBRARIAN Paroxysmal atrial flutter (CMS/HCC) (HCC) IRON PROFILE W/ IBC Routine 09/18/2024 7 :20 AM MEDICAL LIBRARIAN Paroxysmal atrial flutter (CMS/HCC) (HCC) HEMOGLOBIN A1C Routine 12/26/2019 6:17 AM MEDICAL LIBRARIAN DIGITAL MAMMOGRAPHY Routine 10/04/2014 1 :46 PM MEDICAL LIBRARIAN from Last 3 Months or Most Recently Relevant to Health Maintenance Results * TRANSTHORACIC ECHO (TTE) COMPLETE W DOPPLER/CF WO CONTRAST (10/12/2024 7:55 AM MEDICAL LIBRARIAN) Anatomical Region Laterality Modality Ultrasound 10/12/2024 7:31 AM MEDICAL LIBRARIAN Narrative 10/12/2024 2:58 PM MEDICAL LIBRARIAN [address] [place] [address] Echocardiogram Report Patient Name: MERVAT RUFF : [...] By: Charley Arana MD 10/12/2024 2:57:57 PM MEDICAL LIBRARIAN 57 Procedure Note Charley Arana MD - 10/12/[address] [address] Echocardiogram Report Patient Name: MERVAT RUFF : [...] By: Charley Arana MD 10/12/2024 2:57:57 PM MEDICAL LIBRARIAN 57 us Marv Joseph Hidalgo CAP INSPECTOR CV ECHO PROCEDURES Final Res ult * eGFR (09/18/2024 7:20 AM MEDICAL LIBRARIAN) eGFR >90 >=60 mL/min/1. 73 m2 Comment: [...] last reviewed 2021. Blood 09/18/2024 7:20 AM MEDICAL LIBRARIAN 09/18/2024 8:06 AM MEDICAL LIBRARIAN us Marv Hidalgo CAP INSPECTOR LAB BLOOD ORDERABLES Final R esult [facility] ([place]) [facility] Department [place] [address] * Differential, auto (09/18/2024 7:20 AM MEDICAL LIBRARIAN) Neutrophil abs 3.8 1.5 - 6.5 K/cumm [...] revised on 2018. Blood 09/18/2024 7:20 AM MEDICAL LIBRARIAN 09/18/2024 8:06 AM MEDICAL LIBRARIAN Marv Hidalgo CAP INSPECTOR LAB BLOOD ORDERABLES Final R esult [facility] ([place]) 1 [facility] [place] [address] * Iron profile w/ IBC (09/18/2024 7:20 AM MEDICAL LIBRARIAN) Iron 75 35 - 145 mcg/dL TIBC 290 250 - 400 mcg/dL [facility]) Transferrin saturation 26 20 - 50 % [facility] ([place]) Blood 09/18/2024 7:20 AM MEDICAL LIBRARIAN 09/18/2024 8:06 AM MEDICAL LIBRARIAN Marv Hidalgo CAP INSPECTOR LAB BLOOD ORDERABLES Final R esult [facility] ([place]) [facility] [place] [address] * (ABNORMAL) CBC with auto differential (09/18/2024 7:20 AM MEDICAL LIBRARIAN) WBC 6.6 3.8 - 9.9 K/cumm Hgb 14.0 11.9 - 15.5 g/dL [facility] ([place]) Hct 43.9 35.6 - 45.5 % [facility] ([place]) Plt 268 150 - 400 K/cumm [facility] ([place]) MPV 10.2 9.1 - 12.3 fL [facility] ([place]) RBC 4.70 3.90 - 5.20 M/cumm [facility] ([place]) MCV 93.4 81.3 - 96.4 fL [facility] ([place]) MCH 29.8 27.1 - 33.3 pg [facility] ([place]) MCHC 31.9(L) 32.3 - 35.7 g/dL [facility] ([place]) RDW CV 13.7 11.1 - 14.9 % [facility] ([place]) RDW SD 47.1 35.7 - 48.1 fL [facility] ([place]) NRBC abs 0.00 0.00 - 0.01 K/cumm [facility] ([place]) Blood 09/18/2024 7:20 AM MEDICAL LIBRARIAN 09/18/2024 8:06 AM MEDICAL LIBRARIAN us Marv Hidalgo NP LAB BLOOD ORDERABLES Final R esult [facility] ([place]) [facility] Department [place] [address] * (ABNORMAL) Lipid panel (09/18/2024 7:20 AM MEDICAL LIBRARIAN) Cholesterol 195 30 - 199 mg/dL Comment: [...] on 2018. HDL 42 >=40 mg/dL [facility]) Comment: Interpretive Data Ages < or = [...] 2024. Non-HDL Cholesterol 153 mg/dL [facility] ([place]) Comment: Interpretive Data Ages < or = [...] on 2018. Chol/HDL ratio 5 [facility] ([place]) Blood 09/18/2024 7:20 AM MEDICAL LIBRARIAN 09/18/2024 8:06 AM MEDICAL LIBRARIAN us Marv Joseph Hidalgo CAP INSPECTOR LAB BLOOD ORDERABLES Final R esult [facility] ([place]) [facility] Department [place] [address] * Basic metabolic panel (09/18/2024 7:20 AM MEDICAL LIBRARIAN) Sodium 139 135 - 145 mmol/L Potassium, pl 4.2 3.3 - 4.9 mmol/L [facility] ([place]) Chloride 104 97 - 110 mmol/L [facility] ([place]) CO2 29 22 - 32 mmol/L [facility] ([place]) Anion gap 6 2 - 15 mmol/L [facility] ([place]) BUN 17 6 - 25 mg/dL [facility] ([place]) Creatinine 0.70 0.60 - 1.10 mg/dL [facility] ([place]) Glucose 125 70 - 199 mg/dL [facility] ([place]) Comment: Interpretive Data Fasting glucose >/= [...] 2022. Calcium 9.7 8.5 - 10.3 mg/dL [facility] ([place]) Blood 09/18/2024 7:20 AM MEDICAL LIBRARIAN 09/18/2024 8:06 AM MEDICAL LIBRARIAN us Marv Hidalgo CAP INSPECTOR LAB BLOOD ORDERABLES Final R esult [facility] ([place] Department [place] [address] * Hemoglobin A1c (12/26/2019 6:17 AM MEDICAL LIBRARIAN) Hgb A1C 5.2 4.0 - 5.6 % [facility] ([place]) Estimated Average Glucose 103 mg/dL [facility] ([place]) Comment: The ADA recommends reporting an estimated Average Glucose (eAG) with all Hemoglobin A1c results using the equation derived from a study of 507 normal and diabetic adults. ??Minority populations were underrepresented and children were not included. ?? (Diabetes Care 31:4948-4889, 2008). ??The eAG is not equivalent to a fasting glucose. Blood specimen (specimen) 12/26/2019 6:17 AM MEDICAL LIBRARIAN 12/26/2019 6:52 AM MEDICAL LIBRARIAN us WolfgangBonnie Camacho DO LAB BLOOD ORDERABLES Final Result [facility] ([place]) [facility] Department [place] [address] * DIGITAL MAMMOGRAPHY (10/04/2014 1:46 PM MEDICAL LIBRARIAN) Anatomical Region Laterality Modality Breast Mammography 10/04/2014 1:46 PM MEDICAL LIBRARIAN Narrative 10/09/2014 11:07 AM MEDICAL LIBRARIAN Diag Mamm - Addl Views R ??Acc#: ??[id number] DATE OF EXAM: ??Oct 04 2014 CLINICAL [...] Attending DR: RODO GARCIA Procedure Note Provider, Denice, - 02/18/2017 Diag Mamm - Addl Views R Acc#: [id number] DATE OF EXAM: Oct 04 2014 CLINICAL [...] Most Recently Relevant to Health Maintenance Insurance [facility] IDPA IDPA Advance Directives For more information, please contact: [phone] * Full Code (Latest Code Status on File) Date Activated Date Inactivated Comments 12/25/2019 3:35 PM 12/26/2019 7:10 PM Care Teams Brush Cleaner Relationship Specialty Start Date End Date Wali Pak MD [address] [place] [address] [facility] - General 03/26/20
--- OUTSIDE RECORDS SUMMARY | 2024-10-13 16:12 | XMS_ITS | Encounter Summary ---
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 She then had a no show appointment and did not reach back out to clinic to reschedule. Her remaining appointments were cancelled. No additional orders have been received. She is discharged from skilled OT under my care at this time. Sonia Robledo OT 06/07/24 documented in this encounter Plan of Treatment Not on file documented as of this encounter Visit Diagnoses Not on filedocumented in this encounter Care Teams Wealth Management Advisor Relationship Specialty Start Date End Date Wali Pak MD [address] [place] [address] PCP - General 03/26/20 documented as of this encounter
--- OUTSIDE RECORDS SUMMARY | 2024-10-13 16:13 | XMS_ITS | Encounter Summary ---
Author Organization [facility] Address [address] [place] [address] Care Team Providers Care Transmission System Operator Name Role Phone Wali Pak MD Primary Care Provider [phone] Reason for Visit * Reason Comments CPAP Follow Up when it amps up, it leaks a lot. Takes it off shelter through the night w/o knowing. Encounter Details Date Type Department Care Team ([facility] Contact Info) Description 02/21/2021 8:00 AM CDT Office Visit [facility] Sleep Medicine at [address] [place] [id number] Violeta Dash MD [address] [place] [address] [address] [place] [address] JERAMY (obstructive sleep apnea) (Primary Dx); Obesity, unspecified classification, unspecified obesity type, unspecified whether serious comorbidity present; Insomnia, unspecified type; REM sleep behavior disorder Social History Tobacco Use Types Packs/Day [...] on file 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 Gender Identity Not on file Sexual Orientation Not on file documented as of this encounter Last Filed Vital Signs Vital Sign Reading Time Taken Comments Blood Pressure 120/76 02/21/2021 8:11 AM CDT Pulse 73 02/21/2021 8:11 AM CDT Temperature - - Respiratory Rate - - Oxygen Saturation 98% 02/21/2021 8:11 AM CDT Inhaled Oxygen Concentration - - Weight 109.9 kg (242 lb 4.8 oz) 02/21/2021 8:11 AM CDT Height 167.6 cm (5' 6 ) 02/21/2021 8:11 AM CDT Body Mass Index 39.11 02/21/2021 8:11 AM CDT documented in this encounter Progress Notes * Violeta Dash MD - 02/21/2021 8:00 AM CDT Images from the original note were not included. SUBJECTIVE Chief Complaints: Snoring, unrefreshing sleep, excessive daytime fatigue, atrial flutter HPI: Mervat Haro is a 55 y.o. femalewith a PMHx significant for atrial flutter, history of SVT, diastolic congestive heart failure presents to the sleep medicine clinic for follow up on obstructive sleep apnea. Obstructive sleep apnea: Patient is currently on APAP at 5-20 cm of water. Patient has been trying to use the CPAP machine every night. Patient states that she is able to fall asleep with the machine , but after an hour or so the mask leaks on the side whenever she is sleeping on her side and startles her and wakes her up.After that, she is not able to go back to sleep. She has switched from a nasal pillow with chinstrap 12 fullface mask. The [employer] has recommended change to a different kind of full face mask that goes over her nose to see if that helps. Patient wants to try that 1st before coming to the lab for CPAP titration. She is trying her best with sleep hygiene and has been doing better. Denies any naps. History: Patient was found to have SVT which was treated with adenosine in December of this year. After treatment of SVT, atrial flutter was identified and patient has cardioversion done and has remained on sinus rhythm since. Patient was referred for further evaluation of obstructive sleep apnea. Patient gives history of many years of snoring, witnessed apnea, morning headaches, daytime fatigue. Patient has never been evaluated for obstructive sleep apnea in the past. Her father and twin sister both have obstructive sleep apnea. Mask:full face mask DME: [facility] Insomnia: Patient is able to go to sleep with the CPAP on these days, but she gets woken up after an hour dueto noise from the leak is from the side of her masks. She is not able to go to sleep after that. She is trying her best with sleep hygiene and has been doing better. She goes to bed at 9-10 p.m., falls asleep within 30 minutes and wakes up at 4:30 a.m.. She has to wake up multiple times throughout the night, but she wakes up 2 times to use the restroom nowadays. But she has noticed that she wakes up after 2-3 hours and feels that the pressure is toohigh. She stopped taking Benadryl 2 months back. Melatonin did not help her. She takes Ativan prn once every 2 months or so for her anxiety. She does not take any other medicines to help her sleep nowadays. Dream enactment: No dream enactment lately. History: Patient gives history of dream enactment. Patient has acted out her dreams and has increased motor activity during her sleep. Her no longer sleeps in the same bed. No history of falling out of bed. Patient has these episodes maybe twice in 4-5 months. Prior Sleep schedule: During weekdays, she goes to bed at 9:30 a.m.-10:00 p.m., takes an hour to fall asleep and wakes upat 4:30 a.m.. During weekends, she goes to bed at 10:00 p.m., takes an hour to fall asleep and wakes up at 4:30 a.m.-6:00 a.m.. She wakes up 3-4 times to use the restroom and takes 15 minutes to go back to sleep. She denies any naps. Denies any motor vehicle accidents or near misses. Denies any hypnogogic or hypnopompic hallunications. Denies any sleep paralysis. Denies any cataplexy. Denies difficulty awakening in the morning. Denies any daytime naps. Positive for history of sleep walking. Positive for motor activities, kicking, acting out dreams, falls, or screaming during sleep. ESS: 7 (previous 10, 9) Past sleep evaluation: PSG from 11/15/2020: AHI 5.6, RDI 7.5, supine AHI of 15.0, supine RDI 18.0, REM AHI 27.3, REM RDI 30.0, supine REM AHI 34.0, supine REM RDI 30.0. Sleep latency -7.2 minutes. Past Medical History: Diagnosis Date ??? Arthritis osteoarthritis bilateral knees ??? CHF (congestive heart failure) ([facility]) ??? HX OTHER MEDICAL Headache, migraine ??? Ventricular tachycardia ([facility]) Past Surgical History: Procedure Laterality Date ??? APPENDECTOMY 2001 ??? SECTION 1996 section ??? HYSTERECTOMY 2011 ??? JOINT REPLACEMENT ??? KNEE ARTHROSCOPY Bilateral 2018 Current Outpatient Medications: ??? aspirin, 325 mg, oral, Daily ??? buPROPion, 100 mg, oral, Daily ??? dlfleycycy-xqfhhjjxlroem-bmhiyspc, tfodxveycl-yftctkwysoznh-xzbrsspn 50 mg- 325 mg-40 mg tablet TAKE 1 TAB BY MOUTH EVERY 6 HOURS NEEDED FOR HEADACHES. ??? cholecalciferol, ??? ciprofloxacin, TAKE 1 TABLET BY MOUTH TWICE A DAY FOR 10 DAYS ??? furosemide, 20 mg, oral, PRN ??? LORazepam, 0.5 mg, oral, PRN ??? magnesium, 30 mg, oral, BID ??? metoprolol XL, 50 mg, oral, Daily ??? orphenadrine ER, orphenadrine citrate ER 100 mg tablet,extended release TAKE 1 TAB BY MOUTH 2 TIMES DAILY NEEDED FOR MUSCLE SPASMS. ??? rOPINIRole, TAKE 1 TABLET BY MOUTH EVERY DAY AT NIGHT ??? temazepam, 15 mg, oral, Nightly PRN Allergies Allergen Reactions ??? Latex Other (See comments) and Rash When wears latex herself Reaction: Rash, ??? Penicillins Other (See comments) and Rash As a child / has had penicillin since then with no problems Reaction: Rash, Social History Tobacco Use ??? Smoking status: Former Smoker Packs/day: 0.05 Years: 25.00 Pack years: 1.25 Types: Cigarettes Start date: 12/24/1993 Quit date: 12/24/2018 Years since quittin.1 ??? Smokeless tobacco: Never Used Substance Use Topics ??? Alcohol use: Yes Family History Problem Relation Age of Onset ??? Cancer Mother ??? Diabetes Father ??? Gout Father ??? Heart disease Father ??? Diabetes Maternal Grandmother ??? Heart disease Maternal Grandmother ??? COPD Paternal Grandmother Review of Systems: Denies any headache or double vision or blurred vision. Denies any sore throat. Denies any chest pain or palpitation. Denies any shortness of breath. Denies any nausea, vomiting, diarrhea, constipation. Denies any dysuria, urgency, frequency. Denies any hemiplegia, hemiparesis. Denies any seizure. Denies any fever, chills. Denies any weight loss. Denies any leg swelling or pain. Denies any skin rash. Physical Exam: Vitals: 02/21/21 0811 BP: 120/76 BP Location: Left arm Patient Position: Sitting Pulse: 73 SpO2: 98% Weight: 109.9 kg (242 lb 4.8 oz) Height: 167.6 cm (5' 6 ) BMI: Body mass index is 39.11 kg/m??. Wt Readings from Last 6 Encounters: 02/21/21 109.9 kg (242 lb 4.8 oz) 12/27/20 109 kg (240 lb 6.4 oz) 11/29/20 108.7 kg (239 lb 11.2 oz) 11/29/20 109.3 kg (241 lb) 11/01/20 107.8 kg (237 lb 9.6 oz) 09/27/20 109.3 kg (241 lb) BMI Readings from Last 6 Encounters: 02/21/21 39.11 kg/m?? 12/27/20 38.80 kg/m?? 11/29/20 38.69 kg/m?? 11/29/20 38.90 kg/m?? 11/01/20 38.35 kg/m?? 09/27/20 38.90 kg/m?? Physical Exam General appearance: Alert, oriented, in no distress. HEENT: Atraumatic, normocephalic. Pupils are equal and reactive to light. Extraocular movement intact. Positive for macroglossia and scalloped tongue. Mallampati-IV. Neck circumference-15 in. CVS: S1, S2 normal Respiration: Clear to auscultation bilaterally Abdomen: Soft, nontender, nondistended, bowel sounds normoactive Extremities/Musculoskeletal: No pedal edema, no calf tenderness Neuro: No focal deficits Psychiatric: Normal mood and affect Ejection fraction: Echocardiogram on 12/2019:65% Polysomnogram results: PSG from 11/15/2020: AHI 5.6, RDI 7.5, supine AHI of 15.0, supine RDI 18.0, REM AHI 27.3, REM RDI 30.0, supine REM AHI 34.0, supine REM RDI 30.0. Sleep latency -7.2 minutes. Download data: Assessment and Plan: 1. Mild obstructive sleep apnea: o Recent PSG showed mild obstructive sleep apnea, which was worse in supine position and during REMsleep. o Given the history of atrial flutter and increased severity in supine position and during REM sleep, patient will benefit from treatment of mild obstructive sleep apnea. o Currently on APAP at 5-20 cm of water o Download reviewed, decreased compliance due to mask leak issues, residual AHI of 1.8/hour. o Patient wants to try with a different kind of full face mask that goes on top of her nose 1st before coming for CPAP titration if needed. Patient will be followed up in 1 month. If the patient is still having issues with the mask or waking up after she falls asleep, then will obtain in-lab CPAP titration study to look for any central events. o The physiology of sleep disordered breathing and its increased association with hypertension, diabetes mellitus type 2, arrhythmias, strokes, heart attacks, heart failure, hypersomnia, obesity, cognitive dysfunction, and mood disorders were discussed. o Hypnotics, sedatives, and related medications have the potential of worsening the apnea and should be avoided. o Patients with sleep apnea may have significant daytime hypersomnolence. If that is the case, driving or handling heavy machinery should be avoided until the apnea and excessive sleepiness have resolved. o Weight loss for ideal body weight range is recommended. 2. Morbid Obesity: o The effects of obesity, obstructive sleep apnea syndrome and other morbidities were discussed. o Recommended diet and exercise for ideal body weight. Patient verbalized understanding. o Filter Tip Inspector appointment not made by patient given her work schedule. Recommended patient to callthem to see if she can do a virtual visit. 4. Suspected REM behavior disorder: ?? Safety in and around the bed and bedroom discussed in detail ?? No RSWA on PSG noted ?? Association of RBD with neurodegenerative condition discussed in detail ?? Will monitor for worsening of symptoms 5. Sleep onset insomnia: ?? Improving with sleep hygiene and APAP. ?? Patient was given Restoril to help with sleep maintenance since starting APAP during her last visit. 6. Return to clinic in 4 weeks. Voice recognition software [employer] was used dictate and transcribe this document. Forensic Social Worker variances may occur. Despite proofreading, typographical errors may occur. Violeta Dash MD [facility] Sleep Medicine CC: Wali Pak MD documented in this encounter Plan of Treatment Not on file documented as of this encounter Visit Diagnoses Diagnosis JERAMY (obstructive sleep apnea)- Primary Obstructive sleep apnea (adult) (pediatric) Obesity, unspecified classification, unspecified obesity type, unspecified whether serious comorbidity present Insomnia, unspecified type REM sleep behavior disorder documented in this encounter Historical Medications * This list may reflect changes made after this encounter. rOPINIRole (REQUIP) 0.25 mg tablet as needed 02/10/2021 11/10/2023 added in this encounter Care Teams Transmission System Operator Relationship Specialty Start Date End Date Wali Pak MD [address] [place] [address] PCP - General 03/26/20 documented as of this encounter
--- OUTSIDE RECORDS SUMMARY | 2024-10-13 16:13 | XMS_ITS | Encounter Summary ---
Author Organization [facility] Address [address] [place] [address] Care Team Providers Care Intellectual Property Paralegal Name Role Phone Wali Pak MD Primary Care Provider [phone]- [phone] Reason for Referral * Cardiology (Routine) - Closed Specialty Diagnoses / Procedures Referred By Contac t Referred To Contact Diagnoses Typical atrial flutter (CMS/HCC) (HCC) Procedures Event Monitor, 30 Day Event Addi Gibbs DO [address] [place] [id number] Phone: tel: fax: [address] [address] Referral ID Status Reason Start Date Expiration Date Visits Re quested Visits Authorized [id number] Closed 10/09/2020 11/08/[address] CHANGER ASSEMBLER Encounter Details Date Type Department Care Team (Late st Contact Info) Description 10/09/2020 Telephone [employer] Motor Inspector [address] [address] Danyelle Murcia MA Social History Tobacco Use Types Packs/Day [...] on file Legal Sex Female 1:15 AM RECORD CHANGER ASSEMBLER Gender Identity Not on file Sexual Orientation Not on file documented as of this encounter Miscellaneous Notes * Telephone Encounter - Danyelle Paniagua MA - 10/09/2020 10:15 AM CST Called pt to confirm ins and she stated that she is scared of getting billed for her loop recorder and wanted to see if she could just do an event monitor. KAYLEEN said she could, sent in order to [facility]. RD CHANGER ASSEMBLER documented in this encounter Plan of Treatment Not on file documented as of this encounter Results * Event Monitor, 30 Day Event (11/01/2020 1:48 PM RECORD CHANGER ASSEMBLER) Anatomical Region Laterality Modality Electrocardiogra phy 11/30/2020 6:00 AM RECORD CHANGER ASSEMBLER Narrative 12/02/2020 8:53 AM RECORD CHANGER ASSEMBLER [address] [address] EVENT MONITOR Patient Name: RAMESH RUFF M : 1965 Study Date: 11/30/2020 06:00:00 Gender: F Tech: Ref.Provider: ADDI GIBBS Height(Cm): BSA: Weight(Kg): Order Provider: ADDI GIBBS Procedures: Event Report: Event Monitor Report. Indications: Atrial Flutter Typical I48.3. Conclusions: 1. Predominant rhythm is normal sinus rhythm with a minimum heart rate of 50 beats per minute in sinus and a maximum heart rate of 120 beats per minute also in sinus. 2. Heart rate and rate variability is appropriate. 3. No prolonged pauses. 4. There was only 1 diary entry heart racing--sinus rhythm at 86 beats per minute. 5. There were no significant findings otherwise. Electronically Signed By: Dr Qamar Ramirez 2020-12-02 08:53:41 RECORD CHANGER ASSEMBLER Procedure Note Qamar Ramirez MD - 12/02/[address] [place] [address] EVENT MONITOR Patient Name: RAMESH RUFF MPatient ID: [id number] : [id number] Date: 11/30/2020 06:00:00 Gender: FAccession #: [id number] Tech: Ref.Provider: ADDI GIBBS Height(Cm): BSA: Weight(Kg): Order Provider: ADDI GIBBS Procedures: Event Report: Event Monitor Report. Indications: Atrial Flutter Typical I48.3. Conclusions: 1. Predominant rhythm is normal sinus rhythm with a minimum heart rate of50 beats per minute in sinus and a maximum heart rate of 120 beats per minute also insinus. 2. Heart rate and rate variability is appropriate. 3. No prolonged pauses. 4. There was only 1 diary entry heart racing--sinus rhythm at 86 beats perminute. 5. There were no significant findings otherwise. Electronically Signed By: Dr Qamar Ramirez 2020-12-02 08:53:41 RECORD CHANGER ASSEMBLER Addi Gibbs DO [facility] PROCEDU RES Final Result documented in this encounter Visit Diagnoses Diagnosis Typical atrial flutter (CMS/HCC) (HCC)- Primary Typical atrial flutter (CMS/HCC) (HCC) documented in this encounter Care Teams Intellectual Property Paralegal Relationship Specialty Start Date End Date Wali Pak MD [address] [place] [address] PCP - General 03/26/20 documented as of this encounter
--- OUTSIDE RECORDS SUMMARY | 2024-10-13 16:13 | XMS_ITS | Encounter Summary ---
Author Organization [facility] Address [address] [address] Care Team Providers Care Gauger Chief Delivery Name Role Phone Wali Pak MD Primary Care Provider [phone] Reason for Visit * Reason Comments Follow-up Atrial Flutter Encounter Details Date Type Department Care Team (Late st Contact Info) Description 11/29/2020 9:00 AM PATTERN ASSEMBLER Office Visit [place] [employer] Dyeing Machine Operator [address] [place] [phone] Vel Camacho, DO 2 [facility] [address] [place] [address] Typical atrial flutter (CMS/HCC) (Primary Dx); Current use of seismic plotter anticoagulation; Class 2 obesity due to excess calories without serious comorbidity with body mass index (BMI) of 38.0 to 38.9 in adult Social History Tobacco Use Types Packs/Day Years [...] on file Legal Sex Female 1:15 AM PATTERN ASSEMBLER Gender Identity Not on file Sexual Orientation Not on file documented as of this encounter Last Filed Vital Signs Vital Sign Reading Time Taken Comments Blood Pressure 136/84 11/29/2020 9:05 AM PATTERN ASSEMBLER Pulse 88 11/29/2020 9:05 AM PATTERN ASSEMBLER Temperature 36.7 ??C (98 ??F) 11/29/2020 9:05 AM PATTERN ASSEMBLER Respiratory Rate 14 11/29/2020 9:05 AM PATTERN ASSEMBLER Oxygen Saturation - - Inhaled Oxygen Concentration - - Weight 109.3 kg (241 lb) 11/29/2020 9:05 AM PATTERN ASSEMBLER Height 167.6 cm (5' 6 ) 11/29/2020 9:05 AM PATTERN ASSEMBLER Body Mass Index 38.9 11/29/2020 9:05 AM PATTERN ASSEMBLER documented in this encounter Progress Notes * Vel Camacho, DO - 11/29/2020 9:00 AM CST Images from the original note were not included. Cardiology note Reason for Office Visit: Chief Complaint Patient presents with ??? Follow-up ??? Atrial Flutter loop recorder versus event monitor History of Present Illness: Mervat Haro is a 55 y.o. female who arrived to the ED [...] electrocardiograms are not available for my review Impression: 1. SVT, likely atrial flutter 2. CHF secondary to 1. 3. Abnormal glucose 1. ??Toprol XL 100 mg daily 2. Will review echocardiogram 3. Oral anticoagulation 4. Hemoglobin A1c 02/07/2020: Since discharge patient has had no [...] had no evidence for recurrenceof persistent tachyarrhythmia. Review of Systems: Review of Systems Constitution: Negative for weight gain and weight loss. [...] nervous/anxious. Histories: Past Medical History: Diagnosis Date ??? Arthritis osteoarthritis bilateral knees ??? CHF (congestive heart failure) (CMS/HCC) ??? HX OTHER MEDICAL Headache, migraine ??? Ventricular tachycardia (CMS/HCC) Past Surgical History: Procedure Laterality Date ??? APPENDECTOMY 2001 ??? SECTION 1996 section ??? HYSTERECTOMY 2011 ??? JOINT REPLACEMENT ??? KNEE ARTHROSCOPY Bilateral 2018 Family History Problem Relation Age of Onset ??? Cancer Mother ??? Diabetes Father ??? Gout Father ??? Heart disease Father ??? Diabetes Maternal Grandmother ??? Heart disease Maternal Grandmother ??? COPD Paternal Grandmother Social History Tobacco Use ??? Smoking status: Former Smoker Packs/day: 0.05 Years: 25.00 Pack years: 1.25 Types: Cigarettes Start date: 12/24/1993 Quit date: 12/24/2018 Years since quittin.9 ??? Smokeless tobacco: Never Used Substance Use Topics ??? Alcohol use: Yes Frequency: Monthly or less ??? Drug use: Never Allergies: Allergies Allergen Reactions ??? Latex Other (See comments) and Rash When wears latex herself Reaction: Rash, ??? Penicillins Other (See comments) and Rash As a child / has had penicillin since then with no problems Reaction: Rash, Medications: Current Outpatient Medications Medication Sig Dispense Refill ??? apixaban (ELIQUIS) 5 mg tablet Take 1 tablet (5 mg total) by mouth every 12 (twelve) hours 60 tablet 2 ??? metoprolol XL (TOPROL-XL) 50 mg extended release tablet Take 1 tablet (50 mg total) by mouth daily 30 tablet 2 No current facility-administered medications for this visit. Vital Signs: Vitals BP 136/84 (BP Location: Left arm, Patient Position: Sitting) Pulse 88 Temp 36.7 ??C (98 ??F) Resp 14 Ht 167.6 cm (5' 6 ) Wt 109.3 kg (241 lb) BMI 38.90 kg/m?? Vitals: 11/29/20 0905 BP: 136/84 Pulse: 88 Resp: 14 Temp: 36.7 ??C (98 ??F) Wt Readings from Last 3 Encounters: 11/29/20 109.3 kg (241 lb) 11/01/20 107.8 kg (237 lb 9.6 oz) 09/27/20 109.3 kg (241 lb) Body mass index is 38.9 kg/m??. Physical Exam: Physical Exam Constitutional: She is oriented to person, place, and time. She appears well- developed and well-nourished. No distress. HENT: Head: Normocephalic. Eyes: EOM are normal. Neck: No JVD present. No tracheal deviation present. Cardiovascular: Normal rate, regular rhythm, S1 normal, S2 normal and intact distal pulses. Exam reveals no decreased pulses. Pulses: Carotid pulses are 2+ on the right side and 2+ on the left side. Posterior tibial pulses are 2+ on the right side and 2+ on the left side. Pulmonary/Chest: Effort normal and breath sounds normal. She has no decreased breath sounds. She has no rhonchi. Abdominal: Soft. Normal appearance and bowel sounds are normal. There is no hepatomegaly. Musculoskeletal: Normal range of motion. Neurological: She is alert and oriented to person, place, and time. Skin: Skin is warm and dry. She is not diaphoretic. Psychiatric: She has a normal mood and affect. Labs: Lab Results Component Value Date INR [...] CHOLHDL Radiology Testing: Xr Chest 1 View ?? Result Date: 12/25/2019 Mild left lower lung airspace disease. Differential includes edema, pneumonia, and atelectasis. Electronically signed by: Qamar Rapp M.D. ? Cardiology Testing: ?? ProBNP: 12/25/2019 ? NT-proBNP 1,512 (H) ?? EK12/25/2019 ?? Echocardiogram 12/26/2019: Conclusions: Normal left ventricular systolic [...] RVSP is 35-40 mmHg. Mild tricuspid regurgitation. Electronically Signed By: Bayron Collier MD 2019-12-26 Diagnoses and Plan Diagnoses and all orders for this visit: Typical atrial flutter (CMS/HCC) (Primary) Assessment & Plan: We again discussed the risks and benefits [...] She has follow-up sleep evaluation later today. Current use of seismic plotter anticoagulation Class 2 obesity due to excess calories without serious comorbidity with body mass index (BMI) of 38.0 to 38.9 in adult Assessment & Plan: We discussed the importance of weight management has on her health problems and discussed a plan/routine to help with this. Return in about 1 year (around 11/29/2021). 02/07/2020 9:36 AM Vel Camacho DO Cc:Wali Pak MD ERN ASSEMBLER documented in this encounter Miscellaneous Notes * Assessment & Plan Note - Vel Camacho DO - 11/29/2020 9:35 AM PATTERN ASSEMBLER Associated Problem(s): Class 2 obesity due to excess calories in adult We discussed the importance of weight management has on her health problems and discussed a plan/routine to help with this. ERN ASSEMBLER * Assessment & Plan Note - Vel Camacho DO - 11/29/2020 9:32 AM PATTERN ASSEMBLER Associated Problem(s): Paroxysmal atrial flutter (CMS/HCC) (HCC) We again discussed the risks and benefits [...] She has follow-up sleep evaluation later today. ERN ASSEMBLER documented in this encounter Plan of Treatment Not on file documented as of this encounter Visit Diagnoses Diagnosis Typical atrial flutter (CMS/HCC) (HCC)- Primary Current use of seismic plotter anticoagulation Class 2 obesity due to excess calories without serious comorbidity with body mass index (BMI) of 38.0 to 38.9 in adult documented in this encounter Discontinued Medications Medication Sig Discontinue Reason Start Date End Da te butalbital-acetaminophen -caffeine (ESGIC) 50-325-40 mg per tablet butalbital-acetamino phen-caffeine 50 mg-325 mg-40 mg tablet 08/06/2020 11/29/2020 documented as of this encounter Historical Medications * This list may reflect changes made after this encounter. magnesium 30 mg tablet Take 1 tablet (30 mg total) by mouth 2 (two) times a day cholecalciferol (cholecalciferol) 400 unit capsule 01/16/20 22 added in this encounter Care Teams Gauger Chief Delivery Relationship Specialty Start Date End Date Wali Pak MD [address] [place] [address] PCP - General 03/26/20 documented as of this encounter
--- OUTSIDE RECORDS SUMMARY | 2024-10-13 16:13 | XMS_ITS | Encounter Summary ---
Author Organization [facility] Address [address] [address] Care Team Providers Care Preschool Program Director Name Role Phone Wali Pak MD Primary Care Provider [phone]- [phone] Reason for Referral * Sleep Medicine (Routine) - Closed Specialty Diagnoses / Procedures Referred By Contac t Referred To Contact Diagnoses JERAMY (obstructive sleep apnea) Procedures PSG Violeta Dash MD Phone: tel: [address] [phone] Referral ID Status Reason Start Date Expiration Date Visits Re quested Visits Authorized [id number] Closed 11/01/2020 12/01/2021 1 1 GER TALENT Reason for Visit * Reason Comments Sleep Apnea referred by cardiolo gist Restless Legs * Consultation (Routine) - Closed Specialty Diagnoses / Procedures Referred By Contac t Referred To Contact Sleep Medicine Diagnoses JERAMY (obstructive sleep apnea) Vel Camacho DO [address] [facility] [address] [place] [address] [place] [id number] Phone: tel: fax: Violeta Dash MD [address] [facility] [address] [place] [address] [place] [address] Phone: tel: Referral ID Status Reason Start Date Expiration Date V isits Requested Visits Authorized [id number] Closed Specialty Services Required 09/27/2020 10/27/2021 1 1 Encounter Details Date Type Department Care Team (Late st Contact Info) Description 11/01/2020 10:30 AM MANAGER TALENT Office Visit [facility] Sleep Medicine at [address] [place] [id number] Violeta Dash MD [address] [place] [address] [address] [place] [address] Obstructive sleep apnea (Primary Dx); JERAMY (obstructive sleep apnea); Insomnia, unspecified type; Obesity, unspecified classification, unspecified obesity type, unspecified whether serious comorbidity present; REM sleep behavior disorder Social History Tobacco [...] on file Legal Sex Female 1:15 AM MANAGER TALENT Gender Identity Not on file Sexual Orientation Not on file documented as of this encounter Last Filed Vital Signs Vital Sign Reading Time Taken Comments Blood Pressure 134/83 11/01/2020 10:38 AM MANAGER TALENT Pulse 85 11/01/2020 10:38 AM MANAGER TALENT Temperature 36.1 ??C (96.9 ??F) 11/01/2020 1 0:38 AM MANAGER TALENT Respiratory Rate - - Oxygen Saturation 98% 11/01/2020 10: 38 AM MANAGER TALENT Inhaled Oxygen Concentration - - Weight 107.8 kg (237 lb 9.6 oz) 021 10:38 AM MANAGER TALENT Height 167.6 cm (5' 6 ) 11/01/2020 10:3 8 AM MANAGER TALENT Body Mass Index 38.35 11/01/2020 10:38 AM MANAGER TALENT documented in this encounter Progress Notes * Violeta Dash MD - 11/01/2020 10:30 AM CST Images from the original note were not included. SUBJECTIVE Chief Complaints: Snoring, unrefreshing sleep, excessive daytime fatigue, atrial flutter HPI: Mervat Haro is a 55 y.o. femalewith a PMHx significant for atrial flutter, history of SVT, diastolic congestive heart failure presents to the sleep medicine clinic for consultation requested by Dr. Camacho, gas adjuster for evaluation for obstructive sleep apnea. Snoring, witnessed apneas, daytime fatigue, atrial flutter: Patient was found to have SVT which [...] twin sister both have obstructive sleep apnea. Dream enactment: Patient gives history of dream enactment. Patient has acted out her dreams and has increased motor activity during her sleep. Her no longer sleeps in the same bed. No history of falling out of bed. Patient has these episodes maybe twice in 4-5 months. Sleep schedule: During weekdays, she goes to [...] dreams, falls, or screaming during sleep. ESS: 9 Past sleep evaluation: None Past Medical History: Diagnosis Date ??? Arthritis osteoarthritis bilateral knees ??? HX OTHER MEDICAL Headache, migraine Past Surgical History: Procedure Laterality Date ??? APPENDECTOMY 2001 ??? SECTION 1996 section ??? HYSTERECTOMY 2011 ??? JOINT REPLACEMENT ??? KNEE ARTHROSCOPY Bilateral 2018 Current Outpatient Medications: ??? buPROPion, 100 mg, oral, Daily ??? tffblhrjpi-vclfpbcyshtrg-gnegvejw, ifubnhvaht-lvzeudaykqsso-xxngloqj 50 mg- 325 mg-40 mg tablet ??? Eliquis, TAKE 1 TABLET BY MOUTH EVERY 12 HOURS ??? furosemide, 20 mg, oral, PRN ??? LORazepam, 0.5 mg, oral, PRN ??? metoprolol XL, 50 mg, oral, Daily Allergies Allergen Reactions ??? Latex Other (See comments) and Rash When wears latex herself Reaction: Rash, ??? Penicillins Other (See comments) and Rash As a child / has had penicillin since then with no problems Reaction: Rash, Social History Tobacco Use ??? Smoking status: Former Smoker Packs/day: 0.05 Years: 25.00 Pack years: 1.25 Types: Cigarettes Start date: 12/24/1993 Quit date: 12/24/2018 Years since quittin.8 ??? Smokeless tobacco: Never Used Substance Use Topics ??? Alcohol use: Yes Frequency: Monthly or less Family History Problem Relation Age of Onset [...] Denies any skin rash. Physical Exam: Vitals: 11/01/20 1038 BP: 134/83 BP Location: Right arm Patient Position: Sitting Pulse: 85 Temp: 36.1 ??C (96.9 ??F) TempSrc: Tympanic SpO2: 98% Weight: 107.8 kg (237 lb 9.6 oz) Height: 167.6 cm (5' 6 ) BMI: Body mass index is 38.35 kg/m??. Wt Readings from Last 6 Encounters: 11/01/20 107.8 kg (237 lb 9.6 oz) 09/27/20 109.3 kg (241 lb) 05/24/20 108.4 kg (239 lb) 02/07/20 103 kg (227 lb) 12/25/19 101.7 kg (224 lb 3.3 oz) 02/08/18 100.2 kg (221 lb) BMI Readings from Last 6 Encounters: 11/01/20 38.35 kg/m?? 09/27/20 38.90 kg/m?? 05/24/20 38.58 kg/m?? 02/07/20 36.64 kg/m?? 12/25/19 36.19 kg/m?? 02/08/18 35.67 kg/m?? Physical Exam General appearance: Alert, oriented, [...] and affect Ejection fraction: Echocardiogram on 12/2019:65% Assessment and Plan: 1. Obstructive sleep apnea: o Symptoms suggestive of obstructive sleep apnea syndrome. o The physiology of sleep disordered breathing and its increased association with hypertension, diabetes mellitus type 2, arrhythmias, strokes, heart attacks, heart failure, hypersomnia, obesity, cognitive dysfunction, and mood disorders were discussed. o Polysomnography was recommended. Patient verbalized understanding. Follow-up after sleep study. o Hypnotics, sedatives, and related medications have [...] for ideal body weight. Patient verbalized understanding. 4. Suspected REM behavior disorder: ?? Safety in and around the bed and bedroom discussed in detail ?? Will look for REM sleep without atonia in PSG ?? Association of RBD with neurodegenerative condition discussed in detail ?? Will monitor for worsening of symptoms 5. Sleep onset insomnia: ?? Sleep hygiene discussed 6. Return to clinic in 4 weeks after sleep study has been completed. Voice recognition software [employer] was used dictate and transcribe this document. Special Makeup Fx Artist Instructor variances may occur. Despite proofreading, typographical errors may occur. Violtea Dash MD [facility] Sleep Medicine CC: Wali Pak MD GER TALENT documented in this encounter Plan of Treatment Not on file documented as of this encounter Results * PSG (11/15/2020) Impressions Bishnu Doe MD - 11/15/2020 Baseline Polysomnogram ?? History: Mervat Haro is a 55 y.o. female who presents for baseline polysomnogram. Reason for sleep study: ??Snoring, witnessed apneas, atrial flutter Past medical history: Atrial flutter, history of SVT, diastolic congestive heart failure Medications: ??Bupropion, ??kkwbxqnupx-lcdmzbeszklit-oevbcefz, Eliquis, furosemide, lorazepam, metoprolol XL [place] sleepiness score: 9 ?? BMI: 38.35 ? Procedure: This overnight ??diagnostic baseline ??polysomnogram was performed with the interventional technologist in attendance. Patient is studied with multiple channel polysomnography to include EEG, sleep stage recording, cardio-respiratory monitoring, monitoring for limb movements as well as videotaping. Central, frontal, occipital and temporal EEG, bilateral EOG, submental EMG, oral and nasal airflow, thoracoabdominal motion, bilateral anterior tibialis EMG, one lead EKG, snore sensor, pulse oximetry and transcutaneous CO2 were monitored. Sleep stages, periodic limb movements, EEG arousals and respiratory events were scored according to the criteria from The [place] [employer] (AASM) Manual for the scoring of sleep and associated events - version 2.6. ? Findings:? Baseline parameters: Baseline heart rate =63/m , Respiratory rate=16/m, Oxygen saturation =96% ?? Sleep architecture: Polysomnogram revealed total recording time of 415.0 minutes and total sleep time of 246.5 minutes with sleep efficiency of 59.4%.?? Sleep onset latency was 7.2min, and REM latency 131.5min. ?? N1 7.1%,?? N2 52.1%, N3 22.9% and REM 17.8% accounted for the total sleep time. ?? EEG profile: EEG was reviewed. ?? Snoring profile: The patient had mild snoring. Snoring was not associated with arousals. ?? Respiratory analysis: A total of 0 obstructive apneas,??0 mixed apneas, 0 central apneas and 23 hypopneas were seen with AHI of 5.6 per hour. In addition, 8 Respiratory Effort Related Arousals (RERAs) were seen with AHI+RERA index or respiratory disturbance index (RDI) of 7.5.??Respiratory events occurred more in supine than non-supine position and during REM sleep. Supine AHI of 15.0 and supine RDI of 18.0. ??REM AHI was 27.3 and REM RDI was 30.0. ??Supine REM AHI was 34.0 and supine REM RDI was 38.0. ?? Baseline TcCO2 was 39 mmHg and the maximum TcCO2 was 49 mmHg during the study. ??TcCO2 artifacts were seen during the study. ?? Oximetry data: Lowest oxygen saturation was 86%. The patient had an O2 saturation = 88% for 3.2 min.? Lowest oxygen saturation was associated with a respiratory event. ?? Limb movement profile: ??A total of 8 periodic limb movements were noted, of which 4 movements were associated with arousal. Total movement index was 1.9 per hour and movement with arousal index was 1.0 per hour. ?? Parasomnia profile: No abnormal behavior to suggest parasomnia was noted. EKG analysis: revealed isolated PACs. ?? Interpretation and Recommendations: ?? This is an abnormal polysomnogram due to the presence of: ? 1. Obstructive sleep apnea with Respiratory Disturbance Index of 7.5 and AHI of ??5.6. Respiratory events occurred more in supine than non-supine position and during REM sleep. Supine AHI of 15.0 and supine RDI of 18.0. ??REM AHI was 27.3 and REM RDI was 30.0. ??Supine REM AHI was 34.0 and supine REM RDI was 38.0. Multiple factors can be contributory such as obesity, thyroid disease, and structural/obstructive abnormalities in the upper airway. An evaluation and management of these factors associated with sleep apnea would be beneficial.?? 2. Due to the patient's comorbidities like atrial flutter and increase severity in supine position and during REM sleep, the patient will benefit from treatment of obstructive sleep apnea with Positive Airway Pressure (PAP) devices such as continuous PAP (CPAP), auto-adjusting PAP (APAP), and bi-level PAP (Bi-PAP). Consider CPAP titration study to determine the optimal pressure required to alleviate sleep disordered breathing. 3. Hypnotics, sedatives, and related medications have the potential of worsening the apnea and should be avoided. ? 4. Patients with sleep apnea may have significant daytime hypersomnolence.??If that is the case, driving or handling heavy machinery should be avoided until the apnea and excessive sleepiness have resolved. 5. Weight loss for ideal body weight range is recommended. 6. EKG analysis revealed isolated PACs. ??Clinical correlation is recommended. 7. Short sleep latency is suggestive of excessive sleepiness. Patient's sleep onset latency was 7.2 minutes and this could be due to patient's untreated sleep apnea. Please reevaluate patient clinically after compliant use of CPAP therapy. 7. Reduced sleep efficiency: Patient has reduced sleep efficiency of 59.4 %. Factors like, psychiatric illness, insomnia or chronic pain may be contributory as well as poor sleep hygiene and or daytime napping. This could also be due to sleeping in the sleep lab for the first time called first night effect . Clinical correlation is recommended. ? Violeta Dash MD [facility] Sleep Medicine ?? Narrative Bishnu Doe MD - 11/15/2020 In lab for review us Violeta Dash MD SLEEP CENTER ORDERABLES Final Re sult documented in this encounter Visit Diagnoses Diagnosis Obstructive sleep apnea- Primary Obstructive sleep apnea (adult) (pediatric) JERAMY (obstructive sleep apnea) Obstructive sleep apnea (adult) (pediatric) Insomnia, unspecified type Obesity, unspecified classification, unspecified obesity type, unspecified whether serious comorbidity present REM sleep behavior disorder JERAMY (obstructive sleep apnea) Obstructive sleep apnea (adult) (pediatric) documented in this encounter Historical Medications * This list may reflect changes made after this encounter. butalbital-acetam inophen-caffeine (ESGIC) 50-325-40 mg per tablet butalbital-ac etaminophen-c affeine 50 mg-325 mg-40 mg tablet 08/06/2020 11/29/2020 added in this encounter Orders Outpatient Referral Count Last Ordered Date Fir st Ordered Date AMB REFERRAL TO SLEEP MEDICINE 1 11/01/2020 documented in this encounter Care Teams Preschool Program Director Relationship Specialty Start Date End Date Wali Pak MD [address] [place] [address] PCP - General 03/26/20 documented as of this encounter
--- OUTSIDE RECORDS SUMMARY | 2024-10-13 16:13 | XMS_ITS | Encounter Summary ---
Author Organization [facility] Address [address] [place] [address] Care Team Providers Care Nuclear Medicine Pet Ct Technologist Name Role Phone Wali Pak MD Primary Care Provider +1- [phone] Reason for Visit * Reason Comments CPAP Follow Up when the pressure ra mps up it startles her. Tried a few different masks Encounter Details Date Type Department Care Team (Late st Contact Info) Description 12/27/2020 8:30 AM STRATEGIC SOURCING MANAGER Office Visit [facility] Sleep Medicine at [address] [place] [phone] Violeta Dash MD [address] [place] [address] [address] [place] [address] JERAMY (obstructive sleep apnea) (Primary Dx); Obesity, unspecified classification, unspecified obesity type, unspecified whether serious comorbidity present; Insomnia, unspecified type Social History Tobacco Use Types Packs/Day [...] on file Legal Sex Female 1:15 AM STRATEGIC SOURCING MANAGER Gender Identity Not on file Sexual Orientation Not on file documented as of this encounter Last Filed Vital Signs Vital Sign Reading Time Taken Comments Blood Pressure 130/86 12/27/2020 8:25 AM STRATEGIC SOURCING MANAGER Pulse 77 12/27/2020 8:25 AM STRATEGIC SOURCING MANAGER Temperature 36.2 ??C (97.2 ??F) 12/27/2020 8:25 AM CS T Respiratory Rate - - Oxygen Saturation 97% 12/27/2020 8:25 AM STRATEGIC SOURCING MANAGER Inhaled Oxygen Concentration - - Weight 109 kg (240 lb 6.4 oz) 12/27/2020 8:25 AM STRATEGIC SOURCING MANAGER Height 167.6 cm (5' 6 ) 12/27/2020 8:25 AM STRATEGIC SOURCING MANAGER Body Mass Index 38.8 12/27/2020 8:25 AM STRATEGIC SOURCING MANAGER documented in this encounter Ordered Prescriptions Prescription Sig Dispense Quantity Refills Last Filled Start Date End Date temazepam (RESTORIL) 15 mg capsuleIndications :Insomnia Take 1 capsule (15 mg total) by mouth nightly as needed for sleep 30 capsule 12/27/2020 2 documented in this encounter Progress Notes * Violeta Dash MD - 12/27/2020 8:30 AM CST Images from the original note [...] currently on APAP at 5-20 cm of water for the past 3 weeks. Patient is having issues with the mask and is unable to keep the mask throughout the night. Patientchanged to full face mask recently and still notices leak after sleeping for 2-3 hours when the pressure increases. She is unable to go back to sleep after that. She is trying [...] feels that the pressure is toohigh. She is going to try a different mask soon. Denies any naps. History: Patient was found [...] obstructive sleep apnea. Mask:full face mask DME: [facility] Insomnia: She is trying her best with sleep [...] dreams, falls, or screaming during sleep. ESS: 10 (previous 9) Past sleep evaluation: PSG from 11/15/2020: [...] ??? JOINT REPLACEMENT ??? KNEE ARTHROSCOPY Bilateral 2019 Current Outpatient Medications: ??? aspirin, 325 mg, oral, Daily ??? buPROPion, 100 mg, oral, Daily ??? gnqiezjrae-sksohmqwbwzij-djhkzvyf, lyyuoqzdyq-megivmhqotywq-agmkvyiw 50 mg- 325 mg-40 mg tablet TAKE [...] TIMES DAILY NEEDED FOR MUSCLE SPASMS. ??? temazepam, 15 mg, oral, Nightly PRN [...] 12/24/1993 Quit date: 12/24/2018 Years since quittin.0 ??? Smokeless tobacco: Never Used Substance Use [...] frequency. Denies any hemiplegia, hemiparesis. Denies any seizure.Denies any fever, chills. Denies any weight loss. Denies any leg swelling or pain. Denies any skin rash. Physical Exam: Vitals: 12/27/20 0825 BP: 130/86 BP Location: Right arm Patient Position: Sitting Pulse: 77 Temp: 36.2 ??C (97.2 ??F) TempSrc: Tympanic SpO2: 97% Weight: 109 kg (240 lb 6.4 oz) Height: 167.6 cm (5' 6 ) BMI: Body mass index is 38.8 kg/m??. Wt Readings from Last 6 Encounters: 12/27/20 109 kg (240 lb 6.4 oz) 11/29/20 108.7 kg (239 lb 11.2 oz) 11/29/20 109.3 kg (241 lb) 11/01/20 107.8 kg (237 lb 9.6 oz) 09/27/20 109.3 kg (241 lb) 05/24/20 108.4 kg (239 lb) BMI Readings from Last 6 Encounters: 12/27/20 38.80 kg/m?? 11/29/20 38.69 kg/m?? 11/29/20 38.90 kg/m?? 11/01/20 38.35 kg/m?? 09/27/20 38.90 kg/m?? 05/24/20 38.58 kg/m?? Physical Exam General appearance: Alert, oriented, [...] -7.2 minutes. Download data: Assessment and Plan: Data reviewed today: Dr. Pak's note: cellulitis noted Download data: reviewed as above 1. Mild obstructive sleep apnea: o Recent PSG showed mild obstructive sleep apnea, which was worse in supine position and during REMsleep. o Given the history of atrial flutter and increased severity in supine position and during REM sleep, patient will benefit from treatment of mild obstructive sleep apnea. o Currently on APAP at 5-20 cm of water o Download reviewed, decreased nightly use, residual AHI of 2.3/hour. o Will add Restoril to help with her sleep and compliance with APAP given her history of insomnia. Will try Restoril nightly for 2 weeks, followed by prn. Discussed with the patient in detail not to use it with her Ativan, which she takes only once every few months as needed. o The physiology of sleep disordered breathing [...] ideal body weight. Patient verbalized understanding. o Nutrition referral placed 4. Suspected REM behavior disorder: ?? Safety in and around the bed and bedroom discussed in detail ?? No RSWA on PSG noted ?? Association of RBD with neurodegenerative condition discussed in detail ?? Will monitor for worsening of symptoms 5. Sleep onset insomnia: ?? Improving with sleep hygiene and APAP. ?? Will add Restoril to help with sleep maintenance since starting APAP (#30 Tablets with no refill) ?? Call us in 2 weeks for an update. 6. Return to clinic in 7 weeks. Voice recognition software ticckle Direct was used dictate and transcribe this document. Harvesting Contractor variances may occur. Despite proofreading, typographical errors may occur. Violeta Dash MD [facility] Sleep Medicine CC: Wali Pak MD TEGIC SOURCING MANAGER TEGIC SOURCING MANAGER documented in this encounter Plan of Treatment Not on file documented as of this encounter Visit Diagnoses Diagnosis JERAMY (obstructive sleep apnea)- Primary Obstructive sleep apnea (adult) (pediatric) Obesity, unspecified classification, unspecified obesity type, unspecified whether serious comorbidity present Insomnia, unspecified type documented in this encounter Historical Medications * This list may reflect changes made after this encounter. ciprofloxacin (CIPRO) 500 mg tablet TAKE 1 TABLET BY MOUTH TWICE A DAY FOR 10 DAYS 12/13/2020 2 orphenadrine ER (NORFLEX) 100 mg 12 hr tablet orphenadrine citrate ER 100 mg tablet,extended release TAKE 1 TAB BY MOUTH 2 TIMES DAILY NEEDED FOR MUSCLE SPASMS. 2 butalbital-aceta minophen-caffein e (ESGIC) 50-325-40 mg per tablet butalbital-acetami nophen-caffeine 50 mg-325 mg-40 mg tablet TAKE 1 TAB BY MOUTH EVERY 6 HOURS NEEDED FOR HEADACHES. 4 added in this encounter Care Teams Nuclear Medicine Pet Ct Technologist Relationship Specialty Start Date End Date Wali Pak MD [address] [place] [address] PCP - General 03/26/20 documented as of this encounter
--- OUTSIDE RECORDS SUMMARY | 2024-10-13 16:13 | XMS_ITS | Encounter Summary ---
Author Organization [facility] Address [address] [place] [address] Care Team Providers Care Mdm Developer Name Role Phone Wali Pak MD Primary Care Provider +1- [phone] Encounter Details Date Type Department Care Team (Late st Contact Info) Description 10/07/2020 Telephone [facility] Sleep Medicine at [address] [place] [address] Violeta Dash MD [address] [place] [address] [address] [place] [address] Social History Tobacco Use Types Packs/Day Years [...] on file Legal Sex Female 1:15 AM ENGINE DESIGNER Gender Identity Not on file Sexual Orientation Not on file documented as of this encounter Miscellaneous Notes * Telephone Encounter - Lea Guevara MA - 10/07/2020 3:47 PM CST Patient called in and stated she can not get off work on this . Patient was suppose to have a surgery on October 30 but she will push it back a few weeks. Scheduled the pt an appointment for November 01. NE DESIGNER documented in this encounter Plan of Treatment Not on file documented as of this encounter Visit Diagnoses Not on filedocumented in this encounter Care Teams Mdm Developer Relationship Specialty Start Date End Date Wali Pak MD [address] [place] [address] PCP - General 03/26/20 documented as of this encounter
--- OUTSIDE RECORDS SUMMARY | 2024-10-13 16:13 | XMS_ITS | Encounter Summary ---
Author Organization [facility] Address [address] [place] [address] Care Team Providers Care Sound Ranging Crewmember Name Role Phone Wali Pak MD Primary Care Provider [phone]- [phone] Reason for Visit * Reason Comments Follow-up Atrial Fibrillation Congestive Heart Failure Encounter Details Date Type Department Care Team (Late st Contact Info) Description 05/24/2020 9:30 AM CDT Office Visit [facility] [address] [place] [address] [place] [id number] Vel Camacho, DO [address] [facility] [address] [place] [address] Typical atrial flutter (CMS/HCC) (Primary Dx); Current use of care home anticoagulation; Diastolic CHF, acute (CMS/HCC) Social History Tobacco Use Types Packs/Day Years [...] on file 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 Gender Identity Not on file Sexual Orientation Not on file documented as of this encounter Last Filed Vital Signs Vital Sign Reading Time Taken Comments Blood Pressure 133/78 05/24/2020 9:19 AM CDT Pulse 67 05/24/2020 9:19 AM CDT Temperature 36.4 ??C (97.6 ??F) 05/24/2020 9:19 AM CD T Respiratory Rate 16 05/24/2020 9:19 AM CDT Oxygen Saturation - - Inhaled Oxygen Concentration - - Weight 108.4 kg (239 lb) 05/24/2020 9:19 AM CDT Height 167.6 cm (5' 6 ) 05/24/2020 9:19 AM CDT Body Mass Index 38.58 05/24/2020 9:19 AM CDT documented in this encounter Progress Notes * Vel Camacho, DO - 05/24/2020 9:30 AM CDT Images from the original note were not included. Cardiology note Reason for Office Visit: Chief Complaint Patient presents with ??? Follow-up ??? Atrial Fibrillation ??? Congestive Heart Failure History of Present Illness: Mervat Haro is a 54 y.o. female who arrived to the ED [...] this but does have some respiratory distress. Review of Systems: Review of Systems Constitution: [...] years: 1.25 Types: Cigarettes Start date: 12/24/1993 Last attempt to quit: 12/24/2018 Years since quittin.4 ??? Smokeless tobacco: Never Used Substance Use [...] for this visit. Vital Signs: Vitals BP 133/78 (BP Location: Left arm, Patient Position: Sitting) Pulse 67 Temp 36.4 ??C (97.6 ??F) Resp 16 Ht 167.6 cm (5' 6 ) Wt 108.4 kg (239 lb) BMI 38.58 kg/m?? Vitals: 05/24/20 0919 BP: 133/78 Pulse: 67 Resp: 16 Temp: 36.4 ??C (97.6 ??F) Wt Readings from Last 3 Encounters: 05/24/20 108.4 kg (239 lb) 02/07/20 103 kg (227 lb) 12/25/19 101.7 kg (224 lb 3.3 oz) Body mass index is 38.58 kg/m??. Physical Exam: Physical Exam Constitutional: She [...] atrial flutter (CMS/HCC) (Primary) Assessment & Plan: Despite some evidence for recurrence these episodes have not been terribly persistent or compromising. We plan to continue with conservative management and reassess her heart failure for chronicity with proBNP value. Orders: - Pro B-type natriuretic peptide; Future Current use of long term care phlebotomist anticoagulation Assessment & Plan: Patient has had no major bleeding events she will continue with long-term anticoagulation utilizingEliquis however her insurance has run out due to losing her job and her 's job. She will be looking into patient assistance programs otherwise we will consider warfarin. Diastolic CHF, acute (CMS/HCC) No follow-ups on file. 02/07/2020 10:15 AM Vel Camacho DO Cc:Wali Pak MD documented in this encounter Miscellaneous Notes * Assessment & Plan Note - Vel Camacho DO - 05/24/2020 10:14 AM CDT Associated Problem(s): Paroxysmal atrial flutter (CMS/HCC) (HCC) Despite some evidence for recurrence these episodes have not been terribly persistent or compromising. We plan to continue with conservative management and reassess her heart failure for chronicity with proBNP value. * Assessment & Plan Note - Vel Camacho DO - 05/24/2020 10:13 AM CDT Associated Problem(s): Current use of long term care phlebotomist anticoagulation Patient has had no major bleeding events she will continue with long-term anticoagulation utilizingEliquis however her insurance has run out due to losing her job and her 's job. She will be looking into patient assistance programs otherwise we will consider warfarin. documented in this encounter Plan of Treatment Not on file documented as of this encounter Results * Pro B-type natriuretic peptide (05/24/2020 10:23 AM CDT) NT-proBNP 111 <=300 pg/mL PENG WRIGHT (SHELBY) Comment: Interpretive Comments: A. Dyspnea in Acute Care Setting All Ages: ?< 300 pg/ml, acute heart failure unlikely. < 50 yrs: ?300 - 450 pg/ml, further investigation warranted. ? > 450 pg/ml, acute heart failure likely. 50 - 74 yrs: ? 300 - 900 pg/ml, further investigation warranted. ? > 900 pg/ml, acute heart failure likely . > or = 75 yrs: ? 450 - 1800 pg/ml, further investigation warranted. ? > 1800 pg/ml, acute heart failure likely. B. Non-acute Setting < 75 yrs ? < 125 pg/ml, rules out heart failure. ? > or = 125 pg/ml, further investigation warranted. > or = 75 yrs ?< 450 pg/ml, rules out heart failure. ? > or = 450 pg/ml, further investigation warranted. - Knowledge of each individual patient's NT-proBNP range may be more useful than using similar cut-points for every patient. Please note that marked elevations in NT-proBNP levels may be observed in state other than Left Ventricular Congestive Failure, including: acute coronary syndromes, right heart strain/failure (including pulmonary embolism and cor pulmonale), critical illness, renal failure, as well as advanced age. - References: 1. Rosanna JL et.al. Eur Heart J. 2006:27:330-337. 2. Silke RW, Eli DING. J. AM Kenney Cardiol: Cardiovasc Imag. 2009;2: 216- 225. Interpretive Data Last Revised Date: 2018. Blood specimen (specimen) 05/24/2020 10:23 AM CDT 05/24/2020 10:40 AM CDT us Vel Camacho DO LAB BLOOD ORDERABLES Final Result RANOFW ADRIANA GLADY) [address] [facility] [place] [address] documented in this encounter Visit Diagnoses Diagnosis Typical atrial flutter (CMS/HCC) (HCC)- Primary Current use of care home anticoagulation Diastolic CHF, acute (CMS/HCC) (HCC) documented in this encounter Care Teams Sound Ranging Crewmember Relationship Specialty Start Date End Date Wali Pak MD [address] [place] [address] PCP - General 03/26/20 documented as of this encounter
--- OUTSIDE RECORDS SUMMARY | 2024-10-13 16:13 | XMS_ITS | Encounter Summary ---
Author Organization [facility] Address [address] [place] [address] Care Team Providers Care Child Therapist Name Role Phone Wali Pak MD Primary Care Provider +1- [phone] Reason for Referral * Diagnostic Imaging (Routine) - Closed Specialty Diagnoses / Procedures Referred By Darío alston Referred To Contact Diagnoses Pain in left leg Procedures US VEIN DUPLEX LOWER EXTREMITY LEFT LIMITED, UNILATERAL Jessa Aguayo MD Phone: tel: fax: [address] [address] Referral ID Status Reason Start Date Expiration Date Visits Re quested Visits Authorized [id number] Closed 01/15/2022 02/14/2023 1 1 Reason for Visit * Diagnostic Imaging (Routine) - Closed Specialty Diagnoses / Procedures Referred By Darío alston Referred To Contact Diagnoses Pain in left leg Procedures US VEIN DUPLEX LOWER EXTREMITY LEFT LIMITED, UNILATERAL Jessa Aguayo MD Phone: tel: fax: [address] [address] Referral ID Status Reason Start Date Expiration Date Visits Re quested Visits Authorized [id number] Closed 01/15/2022 02/14/2023 1 1 Encounter Details Date Type Department Care Team (Late st Contact Info) Description 01/26/2022 1:12 PM CDT - 01/26/2022 11:59 PM CDT Hospital Encounter [facility] Vascular Lab [address] [place] [address] Jessa Aguayo MD [address] [facility] [address] [place] [address] [place] [id number] Pain in left leg Discharge Disposition: Discharge to home or self [...] on file 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 Gender Identity Not on file Sexual Orientation Not on file documented as of this encounter Medications at Time of Discharge aspirin 81 mg capsule Take 162 mg by mouth daily buPROPion (WELLBUTRIN) 100 mg tablet Take 1 tablet (100 mg total) by mouth daily 12/28/2019 LORazepam (ATIVAN) 0.5 mg tablet Take 1 tablet (0.5 mg total) by mouth as needed 02/05/2020 magnesium 30 mg tablet Take 1 tablet (30 mg total) by mouth 2 (two) times a day butalbital-acetam inophen-caffeine (ESGIC) 50-325-40 mg per tablet butalbital-ac etaminophen-c affeine 50 mg-325 mg-40 mg tablet TAKE 1 TAB BY MOUTH EVERY 6 HOURS NEEDED FOR HEADACHES. 11/10/2023 furosemide (LASIX) 20 mg tablet Take 1 tablet (20 mg total) by mouth as needed 02/05/2020 09/14/2024 metoprolol XL (TOPROL-XL) 50 mg extended release tablet Take 50 mg by mouth daily 03/03/2022 rOPINIRole (REQUIP) 0.25 mg tablet as needed 02/10/2021 11/10/2023 documented as of this encounter Discharge Disposition Disposition Code Departure Means Destination Discharge to home or self care documented in this encounter Plan of Treatment Not on file documented as of this encounter Procedures Procedure Name Priority Date/Time Associated Diagnosis Comments US VEIN DUPLEX LOWER EXTREMITY LEFT LIMITED Schedule Routine, Read Routine (OP Routine) 01/26/2022 1:45 PM CDT Pain in left leg documented in this encounter Results * US VEIN DUPLEX LOWER EXTREMITY LEFT LIMITED, UNILATERAL (01/26/2022 1:45 PM CDT) Anatomical Region Laterality Modality Vascular Left Ultrasound 01/26/2022 2:14 PM CDT Impressions 01/26/2022 2:14 PM CDT There is no evidence of acute DVT in the left lower extremity. Electronically signed by: Albert Summers M.D. Narrative 01/26/2022 2:14 PM CDT EXAMINATION: US VEIN DUPLEX LOWER EXTREMITY LEFT LIMITED, UNILATERAL HISTORY: The patient is a 56 year old female who presents with pain in the left leg. TECHNIQUE: Left lower extremity venous duplex study was performed with lawton scale imaging, color Doppler imaging and spectral waveform analysis. FINDINGS: There is normal compressibility, phasicity and augmentation the left common femoral, superficial femoral, deep femoral, popliteal, posterior tibial and peroneal veins as well as the left saphenofemoral junction. Imaging of these veins reveals no thrombus or reflux. Procedure Note Albert Summers MD - 01/26/2022 EXAMINATION: US VEIN DUPLEX LOWER EXTREMITY LEFT LIMITED, UNILATERAL HISTORY: The patient is a 56 year old female who presents with pain in the left leg. TECHNIQUE: Left lower extremity venous duplex study was performed with lawton scale imaging, color Doppler imaging and spectral waveform analysis. FINDINGS: There is normal compressibility, phasicity and augmentation the left common femoral, superficial femoral, deep femoral, popliteal, posterior tibial and peroneal veins as well as the left saphenofemoral junction. Imaging of these veins reveals no thrombus or reflux. IMPRESSION: There is no evidence of acute DVT in the left lower extremity. Electronically signed by: Albert Summers M.D. Jessa Aguayo MD IM US PROCEDURES Mary l Result documented in this encounter Visit Diagnoses Diagnosis Pain in left leg documented in this encounter Care Teams Child Therapist Relationship Specialty Start Date End Date Wali Pak MD [address] [place] [address] PCP - General 03/26/20 documented as of this encounter
--- OUTSIDE RECORDS SUMMARY | 2024-10-13 16:13 | XMS_ITS | Encounter Summary ---
Author Organization [facility] Address [address] [place] [address] Care Team Providers Care Netezza Architect Name Role Phone Wali Pak MD Primary Care Provider +1- [phone] Reason for Visit * Reason Comments PT Treatment * Consultation (Routine) - Closed Specialty Diagnoses / Procedures Referred By Contac t Referred To Contact Physical Therapy Diagnoses Arthritis of right knee Caro Disla MD Phone: tel: fax: [address] [address] Referral ID Status Reason Start Date Expiration Date V isits Requested Visits Authorized [id number] Closed Specialty Services Required 12/02/2022 01/01/2024 24 24 Encounter Details Date Type Department Care Team (Late st Contact Info) Description 12/23/2022 7:45 AM MATERIAL COMBINER Therapy [facility] [place] [address] Smitha Leon, GILBERTO Arthritis of right knee [...] on file 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 Pain: 11/03 B knees Objective: See treatment provided. Treatment Provided: Recumbent stepper x 10 min, seat @7 Leg Press, 40# x 15 Resisted hamstring curls, 40# x 15 Standing Heel raises Marching Hip abd alden Rocker board fwd and lat static x 1 min LAQ x 15 SAQ x 15 HEP: Quad sets Heel slides SLR Sidelying hip abduction Prone hip extension Ice after treatment Assessment: Tolerates all activities well. Added resisted machines. Plan: Continue PT POC. Start Time: 0745 End Time: 08 Smitha Leon PT, DPT RIAL COMBINER documented in this encounter Plan of Treatment Not on file documented as of this encounter Visit Diagnoses Diagnosis Arthritis of right knee- Primary documented in this encounter Care Teams Netezza Architect Relationship Specialty Start Date End Date [place] [address] PCP - General 03/26/20 documented as of this encounter
--- OUTSIDE RECORDS SUMMARY | 2024-10-13 16:13 | XMS_ITS | Encounter Summary ---
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 * Telephone Encounter - Jessa Aguayo MD - 02/25/2022 10:51 AM CDT Increase metoprolol XL to 50 mg twice a day * Telephone Encounter - Alice Benito MA - 02/24/2022 1:50 PM CDT Pt has been having elevated BP the last couple days 159/100 and 143/100. She has also been having headaches. Pt is on Metoprolol 50mg daily. documented in this encounter Plan of Treatment Not on file documented as of this encounter Visit Diagnoses Not on filedocumented in this encounter Care Teams Hydrometallurgical Engineer Relationship Specialty Start Date End Date Wali Pak MD [address] [place] [address] PCP - General 03/26/20 documented as of this encounter
--- OUTSIDE RECORDS SUMMARY | 2024-10-13 16:13 | XMS_ITS | Encounter Summary ---
Author Organization [facility] Address [address] [place] [address] Care Team Providers Care Prop Worker Name Role Phone Wali Pak MD Primary Care Provider +1- [phone] Reason for Referral * Diagnostic Imaging (Routine) - Closed Specialty Diagnoses / Procedures Referred By Darío alston Referred To Contact Diagnoses Diastolic CHF, acute (CMS/HCC) (HCC) Procedures NM MPI SPECT (Rest and/or Stress) Multiple Studies Jessa Aguayo MD Phone: tel: fax: [address] [address] Referral ID Status Reason Start Date Expiration Date Visits Re quested Visits Authorized [id number] Closed 01/15/2022 04/17/2022 1 1 Reason for Visit * Diagnostic Imaging (Routine) - Closed Specialty Diagnoses / Procedures Referred By Darío alston Referred To Contact Diagnoses Diastolic CHF, acute (CMS/HCC) (HCC) Procedures NM MPI SPECT (Rest and/or Stress) Multiple Studies Jessa Aguayo MD Phone: tel: fax: [address] [address] Referral ID Status Reason Start Date Expiration Date Visits Re quested Visits Authorized [id number] Closed 01/15/2022 04/17/2022 1 1 Encounter Details Date Type Department Care Team (Late st Contact Info) Description 01/26/2022 6:45 AM CDT - 01/26/2022 7:44 AM CDT Hospital Encounter [facility] [address] [place] [address] Jessa Aguayo MD [address] [facility] [facility] [address] [place] [address] [place] [address] Diastolic CHF, acute (CMS/HCC) ([facility]) Discharge Disposition: Discharge to home or self [...] on file 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 Gender Identity Not on file Sexual [...] Procedure Name Priority Date/Time Associated Diagnosis Comments NM MPI SPECT (REST AND/OR STRESS) MULTIPLE STUDIES Schedule Routine, Read Routine (OP Routine) 01/26/2022 9:06 AM CDT Diastolic CHF, acute (CMS/HCC) (HCC) STRESS TEST FOR DUAL READ Schedule Routine, Read Routine (OP Routine) 01/26/2022 9:06 AM CDT Diastolic CHF, acute (CMS/HCC) (HCC) documented in this encounter Results * Stress Test for Myocardial Perfusion (01/26/2022 9:06 AM CDT) Anatomical Region Laterality Modality Nuclear Medicine 01/26/2022 7:00 AM CDT Narrative 01/26/2022 9:22 AM CDT [address] [address] [facility] Report Patient Name: MERVAT RUFF M : 1965 Study Date: 01/26/2022 07:00:00 Gender: F Tech: BREEZY Ref.Provider: JESSA AGUAYO Height(Cm): 168 BSA: Weight(Kg): 240Heart Rate: 138 Order Provider: JESSA AGUAYO Procedures: Pharmacologic SPECT Report.: Myocardial perfusion imaging with Sestamibi SPECT at rest and post regadenoson (Lexiscan) infusion. Indications: Congestive Heart Failure. Findings: Procedure Data: Resting HR 64 bpm. Peak HR: 98 bpm. Predicted Maximal HR 162 bpm. Target HR: 138 bpm. Percent Max Predicted HR Achieved: 60.49 %. Baseline BP: 121/72 mmHg. Peak BP: 144/70 mmHg. Exercise Time: 00:10. Performed By: Jodee Irvin RN. Reason for Termination: Lexiscan protocol complete. Resting ECG: Normal sinus rhythm. Post Pharm ECG: No diagnostic ST changes. Arrhythmia: No arrhythmias seen. Cardiac Symptoms With Stress: Symptoms with stress were Chest pain. Exam Interpreted: Read by . Conclusions: 1. Negative Lexiscan pharmacologic stress test for chest pain or EKG changes. 2. Nuclear images are pending and they will be reported separately. Electronically Signed By: Dr Qamar Ramirez 2022-01-26 09:22:49 CDT CC: CC: Procedure Note Qamar Ramirez MD - 01/26/[address] [address] Lexiscan Report Patient Name: MERVAT RUFF MPatiecarlos ID: [id number] : [id number] Date: 01/26/2022 07:00:00 Gender: FAccession #: [id number] Tech: [facility].Provider: JESSA AGUAYO Height(Cm): 168BSA: Weight(Kg): 240Heart Rate: 138 Order Provider: JESSA AGUAYO Procedures: Pharmacologic SPECT Report.: Myocardial perfusion imaging with Sestamibi SPECT at rest and postregadenoson (Lexiscan) infusion. Indications: Congestive Heart Failure. Findings: Procedure Data: Resting HR 64 bpm. Peak HR: 98 bpm. Predicted Maximal HR 162 bpm. TargetHR: 138 bpm. Percent Max Predicted HR Achieved: 60.49 %. Baseline BP: 121/72 mmHg. PeakBP: 144/70 mmHg. Exercise Time: 00:10. Performed By: Jodee Irvin RN. Reason for Termination: Lexiscan protocol complete. Resting ECG: Normal sinus rhythm. Post Pharm ECG: No diagnostic ST changes. Arrhythmia: No arrhythmias seen. Cardiac Symptoms With Stress: Symptoms with stress were Chest pain. Exam Interpreted: Read by . Conclusions: 1. Negative Lexiscan pharmacologic stress test for chest pain or EKGchanges. 2. Nuclear images are pending and they will be reported separately. Electronically Signed By: Dr Qamar Ramirez 2022-01-26 09:22:49 CDT CC: CC: Jessa Aguayo MD CV STRESS PROCEDURES F inal Result * NM MPI SPECT (Rest and/or Stress) Multiple Studies (01/26/2022 9:06 AM CDT) Anatomical Region Laterality Modality Body N/A Nuclear Medicine 01/26/2022 6:32 AM CDT Narrative 01/26/2022 12:17 PM CDT [address] [address] [employer] Report Patient Name: MERVAT RUFF M : 1965 Study Date: 2022-01-26 6:32:04 AM Gender: F Tech: Ref.Provider: JESSA AGUAYO Height(Cm): BSA: Weight(Kg): Order Provider: JESSA AGUAYO Report amended on 2022-01-26 at 13:36:20 CDT: Added/Modified: Procedure Data: [MODIFIED] Predicted Maximal HR : 162 bpm Conclusions: [MODIFIED TEXT] FreeText: Myocardial Perfusion: Normal rest and stress images. Anterior wall breast attenuation artifact.CRLFLeft ventricle: Normal size and systolic function (confirmed EF >50%)CRLFReviewed with . [MODIFIED TEXT] Conclusions: Myocardial Perfusion: Normal rest and stress images. Anterior wall breast attenuation artifact. Left ventricle: Normal size and systolic function (confirmed EF >50%) Reviewed with . Previously Signed by: Charley Arana MD 2022-01-26 12:16:58 CDT End of Addendum Procedures: Pharmacologic SPECT Report.: Myocardial perfusion imaging with Sestamibi SPECT at rest and post regadenoson (Lexiscan) infusion. Indications: Congestive Heart Failure. Findings: Procedure Data: Sestamibi injected at rest was 10.9 millicuries. Sestamibi injected at peak exercise was 31.8 millicuries. Predicted Maximal HR 162 bpm. Perfusion: Normal perfusion imaging. LV Function: Left ventricular ejection fraction is 72 %. Conclusions: 1. Myocardial Perfusion: Normal rest and stress images. Anterior wall breast attenuation artifact. 2. Left ventricle: Normal size and systolic function (confirmed EF >50%). 3. Reviewed with . Electronically Signed By: Jag Gil MD, [facility] 2022-01-26 13:36:20 CDT Procedure Note Charley Arana MD / Jag Gil MD - 01/26/[address] [address] [employer] Report Patient Name: MERVAT RUFF MPatient ID: [id number] : [id number] Date: 2022-01-26 6:32:04 AM Gender: FAccession #: [id number] Tech: Ref.Provider: JESSA AGUAYO Height(Cm): BSA: Weight(Kg): Order Provider: JESSA AGUAYO Report amended on 2022-01-26 at 13:36:20 CDT: Added/Modified: Procedure Data: [MODIFIED] Predicted Maximal HR : 162 bpm Conclusions: [MODIFIED TEXT] FreeText: Myocardial Perfusion: Normal rest and stressimages. Anterior wall breast attenuation artifact.CRLFLeft ventricle: Normal size andsystolic function (confirmed EF >50%)CRLFReviewed with . [MODIFIED TEXT] Conclusions: Myocardial Perfusion: Normal rest and stressimages. Anterior wall breast attenuation artifact. Left ventricle: Normal size and systolic function (confirmed EF >50%) Reviewed with . Previously Signed by: Charley Arana MD 2022-01-26 12:16:58 CDT End of Addendum Procedures: Pharmacologic SPECT Report.: Myocardial perfusion imaging with Sestamibi SPECT at rest and postregadenoson (Lexiscan) infusion. Indications: Congestive Heart Failure. Findings: Procedure Data: Sestamibi injected at rest was 10.9 millicuries. Sestamibi injected atpeak exercise was 31.8 millicuries. Predicted Maximal HR 162 bpm. Perfusion: Normal perfusion imaging. LV Function: Left ventricular ejection fraction is 72 %. Conclusions: 1. Myocardial Perfusion: Normal rest and stress images. Anterior wallbreast attenuation artifact. 2. Left ventricle: Normal size and systolic function (confirmed EF>50%). 3. Reviewed with . Electronically Signed By: Jag Gil MD, [facility] 2022-01-26 13:36:20 CDT [facility] Edit ed Result - Final documented in this encounter Visit Diagnoses Diagnosis Diastolic CHF, acute (CMS/HCC) (HCC) documented in this encounter Administered Medications Inactive Administered Medications - up to 3 most recent administrations Medication Order MAR Action Action Date Dose Rate Site tc-99m tetrofosmin (MYOVIEW) injection 10.9 millicurie 10.9 millicurie, intravenous, Once in imaging, radiopharmaceutical, Starting on Wed01/26/22 at 0719, For 1 dose, Indications: Diagnostic RadiographyIndications:Chyna gnostic Radiography Given 01/26/2022 7:00 AM CDT 10.9 millicuries tc-99m tetrofosmin (MYOVIEW) injection 31.8 millicurie 31.8 millicurie, intravenous, Once in imaging, radiopharmaceutical, Starting on Wed01/26/22 at 0720, For 1 dose, Indications: Diagnostic RadiographyIndications:Chyna gnostic Radiography Given 01/26/2022 8:30 AM CDT 31.8 millicuries documented in this encounter Care Teams Prop Worker Relationship Specialty Start Date End Date Wali Pak MD [address] [place] [address] PCP - General 03/26/20 documented as of this encounter
--- OUTSIDE RECORDS SUMMARY | 2024-10-13 16:13 | XMS_ITS | Encounter Summary ---
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 Pt was offered 09/18/2020 and declined---needed a Wednesday ... Anisa SAMANO HT PARAMEDIC * Telephone Encounter - Anisa Carroll MA - 09/05/2020 3:02 PM CST lmom---detailed ... Anisa SAMANO HT PARAMEDIC * Telephone Encounter - Vel Camacho DO - 09/05/2020 1:44 PM FLIGHT PARAMEDIC Images from the original note were not included. We can discuss it further or at my next available office appointment or at her scheduled follow-up. HT PARAMEDIC * Telephone Encounter - Anisa Carroll MA - 09/04/2020 4:32 PM CST Pt says she has not had episodes and wants to see if she can stop taking eliquis. 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 Please advise ~ Anisa SAMANO HT PARAMEDIC documented in this encounter Plan of Treatment Not on file documented as of this encounter Visit Diagnoses Not on filedocumented in this encounter Care Teams Ortho/Prosthetic Aide Relationship Specialty Start Date End Date Wali Pak MD [address] [place] [address] PCP - General 03/26/20 documented as of this encounter
--- OUTSIDE RECORDS SUMMARY | 2024-10-13 16:13 | XMS_ITS | Encounter Summary ---
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 SPORT MANAGER documented in this encounter Plan of Treatment Not on file documented as of this encounter Visit Diagnoses Not on filedocumented in this encounter Care Teams Credit Processor Relationship Specialty Start Date End Date Wali Pak MD [address] [place] [address] PCP - General 03/26/20 documented as of this encounter
--- OUTSIDE RECORDS SUMMARY | 2024-10-13 16:13 | XMS_ITS | Encounter Summary ---
Author Organization [facility] Address [address] [address] Care Team Providers Care Wrister Name Role Phone Wali Pak MD Primary Care Provider +1- [phone] Reason for Visit * Reason Comments Atrial Fibrillation Follow-up Encounter Details Date Type Department Care Team (Late st Contact Info) Description 08/06/2022 8:30 AM CDT Office Visit [employer] Writer at [address] [place] [address] Jessa Aguayo MD [address] [place] [address] [address] [place], [place] [id number] Typical atrial flutter (CMS/HCC) (HCC) (Primary Dx) Social History Tobacco Use Types [...] on file 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 Gender Identity Not on file Sexual Orientation Not on file documented as of this encounter Last Filed Vital Signs Vital Sign Reading Time Taken Comments Blood Pressure 116/73 08/06/2022 8:33 AM CDT Pulse 71 08/06/2022 8:33 AM CDT Temperature - - Respiratory Rate 18 08/06/2022 8:33 AM CDT Oxygen Saturation - - Inhaled Oxygen Concentration - - Weight 109.8 kg (242 lb) 08/06/2022 8:33 AM CDT Height 167.6 cm (5' 6 ) 08/06/2022 8:33 AM CDT Body Mass Index 39.06 08/06/2022 8:33 AM CDT documented in this encounter Progress Notes * Jessa Aguayo MD - 08/06/2022 8:30 AM CDT Cardiology note 08/06/2022 This note contains information and findings from prior encounters which remain the same for today'sencounter. I have reviewed and made updates where applicable. Reason for Office Visit: Chief Complaint Patient presents with Follow-up Atrial Fibrillation Congestive Heart Failure loop recorder versus event monitor History of Present Illness: Mervat Haro is a 56 y.o. female who arrived to the ED [...] the chest and increased shortness of breath Review of Systems: Review of Systems Constitutional: [...] osteoarthritis bilateral knees CHF (congestive heart failure) ([facility]) ([facility]) HX OTHER MEDICAL Headache, migraine Ventricular tachycardia ([facility]) ([facility]) Past Surgical History: Procedure Laterality Date APPENDECTOMY 2002 SECTION 1996 section HYSTERECTOMY 2012 JOINT REPLACEMENT KNEE ARTHROSCOPY Bilateral 2019 Family History Problem [...] tablet Take 100 mg by mouth daily osjssuxhgv-nfzaeztqpunsr-itfcinhd (ESGIC) 50-325-40 mg per tablet nmycvnnpog-rwpokvnbnxoqj-mvmkkohl63 mg-325 mg-40 mg tablet TAKE 1 TAB [...] for this visit. Vital Signs: Vitals BP 141/76 (BP Location: Right arm, Patient Position: Sitting) Pulse 61 Temp 37 ??C (98.6 ??F) Resp 16 Ht 167.6 cm (5' 6 ) Wt 109.8 kg (242 lb) BMI 39.06 kg/m?? Vitals: 01/15/22 0938 BP: 141/76 Pulse: 61 Resp: 16 Temp: 37 ??C (98.6 ??F) Wt Readings from Last 3 Encounters: 01/15/22 109.8 kg (242 lb) 02/21/21 109.9 kg (242 lb 4.8 oz) 12/27/20 109 kg (240 lb 6.4 oz) Body mass index is 39.06 kg/m??. Physical Exam: Physical Exam Constitutional: General: [...] Bayron Collier MD 2019-12-26 Diagnoses and Plan Atrial flutter status post cardioversion resolved currently in sinus rhythm Low chads Vasc score not on anticoagulation Leg swelling with calf tenderness Shortness of breath with chest tightness Diagnosed to have diabetes Obstructive sleep apnea accounting for mild pulmonary hypertension seen on the echocardiogram Recommendation Venous Doppler okay Echocardiogram okay Venus stress test okay Patient's sleep apnea is not been optimize she still struggles for a good sleep at night and she isclosely following up with her sleep doctor follow-up in 6 months Diagnoses and all orders for this visit: Typical atrial flutter (CMS/HCC) (HCC) (Primary) - ECG 12 lead No follow-ups on file. 10:02 AM Jessa Aguayo MD Cc:Wali Pak MD documented in this encounter Plan of Treatment Not on file documented as of this encounter Visit Diagnoses Diagnosis Typical atrial flutter (CMS/HCC) (HCC)- Primary documented in this encounter Historical Medications * This list may reflect changes made after this encounter. metFORMIN (GLUCOPHAGE) 500 mg tablet Take 500 mg by mouth 2 (two) times a day with meals 11/10/2023 added in this encounter Care Teams Wrister Relationship Specialty Start Date End Date Wali Pak MD [address] [place] [address] PCP - General 03/26/20 documented as of this encounter
--- OUTSIDE RECORDS SUMMARY | 2024-10-13 16:13 | XMS_ITS | Encounter Summary ---
Author Organization [facility] Address [address] [place] [address] Care Team Providers Care Analysis Specialist Name Role Phone Wali Pak MD Primary Care Provider +1- [phone] Reason for Visit * Diagnostic Imaging (Routine) - Closed Specialty Diagnoses / Procedures Referred By Contac t Referred To Contact Diagnoses Diastolic CHF, acute (CMS/HCC) (HCC) Procedures NM MPI SPECT (Rest and/or Stress) Multiple Studies Jessa Aguayo MD Phone: tel: fax: [address] [address] Referral ID Status Reason Start Date Expiration Date Visits Re quested Visits Authorized [id number] Closed 01/15/2022 04/17/2022 1 1 Encounter Details Date Type Department Care Team (Late st Contact Info) Description 01/26/2022 7:45 AM CDT - 01/26/2022 1:11 PM CDT Hospital Encounter [facility] Cardiology [address] [place] [address] Jessa Aguayo MD [address] [place] [address] Discharge Disposition: Discharge to home or self [...] on file 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 Gender Identity Not on file Sexual [...] Procedure Name Priority Date/Time Associated Diagnosis Comments STRESS TEST FOR DUAL READ Schedule Routine, Read Routine (OP Routine) 01/26/2022 9:06 AM CDT Diastolic CHF, acute (CMS/HCC) (HCC) NM MPI SPECT (REST AND/OR STRESS) MULTIPLE STUDIES Schedule Routine, Read Routine (OP Routine) 01/26/2022 9:06 AM CDT Diastolic CHF, acute (CMS/HCC) (HCC) documented in this encounter Visit Diagnoses Not on filedocumented in this encounter Administered Medications Inactive Administered Medications - up to 3 most recent administrations Medication Order MAR Action Action Date Dose Rate Site regadenoson (LEXISCAN) 0.4 mg/5 mL injection 0.4 mg 0.4 mg, intravenous, Once, On Wed01/26/22 at 0830, For 1 dose, Intra-Procedure (CV), Administer IV push over 10 seconds., Indications: Myocardial Perfusion Imaging AdjunctIndications:Myocardial Perfusion Imaging Adjunct Given 01/26/2022 8:04 AM CDT 0.4 mg documented in this encounter Orders Medications Ordered That Chace ht Not Have Been Administered Count Last Ordered Date First Ordered Date regadenoson (LEXISCAN) 0.4 m g/5 mL injection 0.4 mg 1 01/26/2022 documented in this encounter Care Teams Analysis Specialist Relationship Specialty Start Date End Date Wali Pak MD [address] [place] [address] PCP - General 03/26/20 documented as of this encounter
--- OUTSIDE RECORDS SUMMARY | 2024-10-13 16:13 | XMS_ITS | Encounter Summary ---
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 She stated that she will be here Wednesday for her appointment at 8:30. WORKER * Telephone Encounter - Violeta Dash MD - 12/25/2020 9:46 AM CST Pleas let her know that she is a automatic CPAP machine where the pressure adjusts as needed. She is not a fixed pressure where I can lower it. I reviewed her download and it shows that it is workingas long as she is using it. Ask her to keep her upcoming apt and we will discuss more. WORKER * Telephone Encounter - Yolis Manzano MA - 12/25/2020 9:39 AM CST The patient called in and asked if the pressure can be turned down on her CPAP machine? WORKER documented in this encounter Plan of Treatment Not on file documented as of this encounter Visit Diagnoses Not on filedocumented in this encounter Care Teams Editorial Intern Relationship Specialty Start Date End Date Wali Pak MD [address] [place] [address] PCP - General 03/26/20 documented as of this encounter
--- OUTSIDE RECORDS SUMMARY | 2024-10-13 16:13 | XMS_ITS | Encounter Summary ---
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 Anisa SAMANO PATCHER documented in this encounter Plan of Treatment Not on file documented as of this encounter Visit Diagnoses Not on filedocumented in this encounter Care Teams Sweet Potato Disintegrator Relationship Specialty Start Date End Date Wali Pak MD [address] [place] [address] PCP - General 03/26/20 documented as of this encounter
--- OUTSIDE RECORDS SUMMARY | 2024-10-13 16:13 | XMS_ITS | Encounter Summary ---
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 Anisa SAMANO * Telephone Encounter - Anisa Carroll MA - 05/29/2020 9:07 AM CDT bnp-ok lmom---detailed ... Anisa SAMANO documented in this encounter Plan of Treatment Not on file documented as of this encounter Visit Diagnoses Not on filedocumented in this encounter Care Teams Web Site Admin Relationship Specialty Start Date End Date Wali Pak MD [address] [place] [address] PCP - General 03/26/20 documented as of this encounter
--- OUTSIDE RECORDS SUMMARY | 2024-10-13 16:13 | XMS_ITS | Encounter Summary ---
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 The swelling is worse on the right. She said when the swelling gets bad she also has a discomfort in her a chest, like tightness and alsogoes up to her neck. She also has increased SOB. Please advise. documented in this encounter Plan of Treatment Not on file documented as of this encounter Visit Diagnoses Not on filedocumented in this encounter Care Teams Oncology Consultant Relationship Specialty Start Date End Date Wali Pak MD [address] [place] [address] PCP - General 03/26/20 documented as of this encounter
--- OUTSIDE RECORDS SUMMARY | 2024-10-13 16:13 | XMS_ITS | Encounter Summary ---
Author Organization [facility] Address [address] [place] [address] Care Team Providers Care Coronary Care Unit Nurse Name Role Phone Wali Pak MD Primary Care Provider +1- [phone] Reason for Visit * Reason Comments PT Treatment * Consultation (Routine) - Closed Specialty Diagnoses / Procedures Referred By Contac t Referred To Contact Physical Therapy Diagnoses Arthritis of right knee Caro Disla MD Phone: tel: fax: [address] [address] Referral ID Status Reason Start Date Expiration Date V isits Requested Visits Authorized [id number] Closed Specialty Services Required 12/02/2022 01/01/2024 24 24 Encounter Details Date Type Department Care Team (Late st Contact Info) Description 12/17/2022 7:00 AM OUTREACH TEAM MEMBER Therapy [facility] [place] [address] Danyelle Nunez, CHADD Arthritis of right knee [...] on file Legal Sex Female 1:15 AM 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 TEAM MEMBER Gender Identity Not on file Sexual Orientation Not on file documented as of this encounter Progress Notes * Danyelle Nunez PTA - 12/17/2022 7:00 AM CST PT Daily Treatment Note Mervat Haro 1965 Subjective: Pain: 2/10 right knee 4/10 left knee Savanna denies any new complaints following her initial evaluation She reports she is performing her HEP as instructed Objective: See treatment provided Added standing exercises Treatment Provided: Recumbent stepper x 8 min seat @7 Standing Heel raises Marching Hip abd alden Rocker board fwd and lat static x 1 min HEP: Quad sets Heel slides SLR Sidelying hip abduction Prone hip extension Ice after treatment Assessment: Savanna is receptive to the current treatment program She was able to achieve complete extension alden knees after gentle stretching Plan: Continue with current plan of care Start Time: 0700 End Time:743 Danyelle Nunez PTA EACH TEAM MEMBER documented in this encounter Plan of Treatment Not on file documented as of this encounter Visit Diagnoses Diagnosis Arthritis of right knee- Primary documented in this encounter Care Teams Coronary Care Unit Nurse Relationship Specialty Start Date End Date Wali Pak MD [address] [place] [address] PCP - General 03/26/20 documented as of this encounter
--- OUTSIDE RECORDS SUMMARY | 2024-10-13 16:13 | XMS_ITS | Encounter Summary ---
Author Organization [facility] Address [address] [place] [address] Care Team Providers Care Stope Miner Name Role Phone Wali Pak MD Primary Care Provider +1- [phone] Reason for Referral * Cardiology (Routine) - Closed Specialty Diagnoses / Procedures Referred By Darío alston Referred To Contact Diagnoses Typical atrial flutter (CMS/HCC) (HCC) Procedures Transthoracic Echo Complete W Doppler/CF Jessa Aguayo MD Phone: tel: fax: [address] [address] Referral ID Status Reason Start Date Expiration Date Visits Re quested Visits Authorized [id number] Closed 01/15/2022 02/14/2023 1 1 Reason for Visit * Cardiology (Routine) - Closed Specialty Diagnoses / Procedures Referred By Darío alston Referred To Contact Diagnoses Typical atrial flutter (CMS/HCC) (HCC) Procedures Transthoracic Echo Complete W Doppler/CF Jessa Aguayo MD Phone: tel: fax: [address] [place] [address] Referral ID Status Reason Start Date Expiration Date Visits Re quested Visits Authorized [id number] Closed 01/15/2022 02/14/2023 1 1 Encounter Details Date Type Department Care Team (Late st Contact Info) Description 02/09/2022 7:29 AM CDT - 02/09/2022 11:59 PM CDT Hospital Encounter [facility] Cardiology [address] [place] [address] Jessa Aguayo MD [address] [facility] [address] [address] Typical atrial flutter (CMS/HCC) (HCC) Discharge Disposition: [...] on file 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 Gender Identity Not on file Sexual Orientation [...] (TTE) COMPLETE W DOPPLER/CF WO CONTRAST Routine 02/09/2022 8:07 AM CDT Typical atrial flutter (CMS/HCC) (HCC) documented in this encounter Results * TRANSTHORACIC ECHO (TTE) COMPLETE W DOPPLER/CF WO CONTRAST (02/09/2022 8:07 AM CDT) Anatomical Region Laterality Modality Ultrasound 02/09/2022 7:38 AM CDT Narrative 02/09/2022 11:50 AM CDT [address] [address] Echocardiogram Report Patient Name: RAMESH RUFF : 1965 Study Date: 02/09/2022 7:38:23 AM Gender: F Tech: ANUP Location: Echo Lab 3 Ref.Provider: JESSA AGUAYO Height(Cm): 168 BSA: 2.26 Weight(Kg): 109.8 Quality: Adequate Order Provider: JESSA AGUAYO Procedures: Echocardiographic Report: Transthoracic echocardiogram with complete 2D, M-Mode, and color Doppler examination. Indications: Typical atrial flutter. Measurements: 2D/M Mode ?Doppler ? Measurement ?Value ?Normal Range ? Measurement ?Value ?Normal Range ? EF Teich MM ?57.0 ? [ 55.0 - 70.0 ] percent ?SLOAN Vmax ? 2.50 ? [ 2.00 - 4.00 ] cm2 ? LVIDd MM ? 5.30 ? [ 3.90 - 5.30 ] cm ? AV Mean PG ? 4 ?[ 2 - 4 ] mmHg ? LVIDs MM ? 3.70 ? [ 2.30 - 3.90 ] cm ? AV Peak Gerry ?1.44 ? [ 1.00 - 1.70 ] m/s ? LVPWd MM ? 1.40 ? [ 0.60 - 1.00 ] cm ? AV VTI ? 33.06 ?cm ? IVSd MM ?1.20 ? [ 0.60 - 0.90 ] cm ? LVOT Peak Gerry ?1.00 ? [ 0.70 - 1.10 ] m/s ? AoR Diam 2D ?2.64 ? [ 2.60 - 3.70 ] cm ? LVOT VTI ? 25.35 ?[ 20.00 - 30.00 ] cm ? MV E Peak Gerry ?1.08 ? [ 0.60 - 1.30 ] m/s ? MV A Peak Gerry ?0.74 ? [ 1.00 - 1.20 ] m/s ? MV Mean PG ? 2 ?[ <= 5 ] mmHg ? MV PHT ? 86 ? [ 20 - 100 ] msec ? MVA ?2.50 ? MV Decel Time ?147 ?[ 104 - 258 ] msec ? PV Peak Gerry ?0.99 ? [ 0.40 - 0.80 ] m/s ? TR Peak Gerry ?2.69 ? [ 1.00 - 2.80 ] m/s ? TR Peak PG ? 29 ? mmHg ? RVSP ? 39.00 ?[ 10.00 - 36.00 ] mmHg ? E' ? 0.08 ? E/E' ? 13.34 ? PA Pressure ?29.00 ?[ 10.00 - 36.00 ] mmHg ? Findings: Atrial Septum: Normal atrial septum. Left Ventricle: Normal left ventricular systolic function with no focal wall motion abnormalities. Normal left ventricular size. Mild concentric left ventricular hypertrophy. Normal left ventricular diastolic function. Ejection fraction is measured at 65 %. Left Atrium: There is mild enlargement of left atrium. Right Ventricle: Normal right ventricular size. Normal right ventricular systolic function. Right Atrium: The right atrium is normal in size. Aortic Valve: Normal structure of the aortic valve. Mitral Valve: Normal structure of the mitral valve. Pulmonic Valve: Normal structure of the pulmonic valve. Tricuspid Valve: Normal structure of the tricuspid valve. Normal right ventricular systolic pressure. Mild pulmonary hypertension based on right ventricular systolic pressure. Estimated peak RVSP is 40 mmHg. Mild tricuspid regurgitation. Pericardium: Normal pericardium with no significant pericardial effusion. Aorta: Normal aortic root. Sinus of Valsalva is normal. Aortic arch is normal. Descending aorta is normal. IVC: Normal size and normal respiratory collapse consistent with normal right atrial pressure (<5 mmHg). Pulmonary Artery: Normal pulmonary artery size. Conclusions: Normal left ventricular systolic function with no focal wall motion abnormalities. Normal left ventricular size. Mild concentric left ventricular hypertrophy. Normal left ventricular diastolic function. Ejection fraction is measured at 65 %. There is mild enlargement of left atrium. Mild pulmonary hypertension based on right ventricular systolic pressure. Estimated peak RVSP is 40 mmHg. Mild tricuspid regurgitation. Technically difficult study with suboptimal views. Electronically Signed By: Bayron Collier MD 2022-02-09 11:50:13 CDT Procedure Note Bayron Collier MD - 02/09/[address] [place] [address] Echocardiogram Report Patient Name: RAMESH RUFFPatient ID: [id number] : [id number] Date: 02/09/2022 7:38:23 AM Gender: FAccession #: [id number] Tech: JCLocation: Echo Lab 3 Ref.Provider: JESSA AGUAYOHeight(Cm): 168 BSA: 2.26Weight(Kg): 109.8 Quality: AdequateOrder Provider: JESSA AGUAYO Procedures: Echocardiographic Report: Transthoracic echocardiogram with complete 2D, M-Mode, and color Dopplerexamination. Indications: Typical atrial flutter. Measurements: 2D/M Mode Doppler Measurement Value Normal Range Measurement ValueNormal Range EF Teich MM 57.0 [ 55.0 - 70.0 ] percent SLOAN Vmax 2.50[ 2.00 - 4.00 ] cm2 LVIDd MM 5.30 [ 3.90 - 5.30 ] cm AV Mean PG 4[ 2 - 4 ] mmHg LVIDs MM 3.70 [ 2.30 - 3.90 ] cm AV Peak Gerry 1.44[ 1.00 - 1.70 ] m/s LVPWd MM 1.40 [ 0.60 - 1.00 ] cm AV VTI 33.06cm IVSd MM 1.20 [ 0.60 - 0.90 ] cm LVOT Peak Gerry 1.00[ 0.70 - 1.10 ] m/s AoR Diam 2D 2.64 [ 2.60 - 3.70 ] cm LVOT VTI 25.35[ 20.00 - 30.00 ] cm MV E Peak Gerry 1.08[ 0.60 - 1.30 ] m/s MV A Peak Gerry 0.74[ 1.00 - 1.20 ] m/s MV Mean PG 2[ <= 5 ] mmHg MV PHT 86[ 20 - 100 ] msec MVA 2.50 MV Decel Time 147[ 104 - 258 ] msec PV Peak Gerry 0.99[ 0.40 - 0.80 ] m/s TR Peak Gerry 2.69[ 1.00 - 2.80 ] m/s TR Peak PG 29mmHg RVSP 39.00[ 10.00 - 36.00 ] mmHg E' 0.08 E/E' 13.34 PA Pressure 29.00[ 10.00 - 36.00 ] mmHg Findings: Atrial Septum: Normal atrial septum. Left Ventricle: Normal left ventricular systolic function with no focal wall motionabnormalities. Normal left ventricular size. Mild concentric left ventricular hypertrophy.Normal left ventricular diastolic function. Ejection fraction is measured at 65 %. Left Atrium: There is mild enlargement of left atrium. Right Ventricle: Normal right ventricular size. Normal right ventricular systolicfunction. Right Atrium: The right atrium is normal in size. Aortic Valve: Normal structure of the aortic valve. Mitral Valve: Normal structure of the mitral valve. Pulmonic Valve: Normal structure of the pulmonic valve. Tricuspid Valve: Normal structure of the tricuspid valve. Normal right ventricular systolicpressure. Mild pulmonary hypertension based on right ventricular systolic pressure.Estimated peak RVSP is 40 mmHg. Mild tricuspid regurgitation. Pericardium: Normal pericardium with no significant pericardial effusion. Aorta: Normal aortic root. Sinus of Valsalva is normal. Aortic arch is normal.Descending aorta is normal. IVC: Normal size and normal respiratory collapse consistent with normal rightatrial pressure (<5 mmHg). Pulmonary Artery: Normal pulmonary artery size. Conclusions: Normal left ventricular systolic function with no focal wall motionabnormalities. Normal left ventricular size. Mild concentric left ventricular hypertrophy.Normal left ventricular diastolic function. Ejection fraction is measured at 65 %. There is mild enlargement of left atrium. Mild pulmonary hypertension based on right ventricular systolic pressure.Estimated peak RVSP is 40 mmHg. Mild tricuspid regurgitation. Technically difficult study with suboptimal views. Electronically Signed By: Bayron Collier MD 2022-02-09 11:50:13 CDT Jessa Aguayo MD CV ECHO PROCEDURES Fin al Result documented in this encounter Visit Diagnoses Diagnosis Typical atrial flutter (CMS/HCC) (HCC) documented in this encounter Care Teams Stope Miner Relationship Specialty Start Date End Date Wali Pak MD [address] [place] [address] PCP - General 03/26/20 documented as of this encounter
--- OUTSIDE RECORDS SUMMARY | 2024-10-13 16:13 | XMS_ITS | Encounter Summary ---
Author Organization [facility] Medical Group Address [address] [address] Care Team Providers Care Assembler Movement Name Role Phone Wali Pak MD Primary Care Provider +1- [phone] Reason for Referral * Diagnostic Imaging (Routine) - Closed Specialty Diagnoses / Procedures Referred By Darío alston Referred To Contact Diagnoses Diastolic CHF, acute (CMS/HCC) (HCC) Procedures NM MPI SPECT (Rest and/or Stress) Multiple Studies Jessa Aguayo MD Phone: tel: fax: [address] [address] Referral ID Status Reason Start Date Expiration Date Visits Re quested Visits Authorized [id number] Closed 01/15/2022 04/17/2022 1 1 * Cardiology (Routine) - Closed Specialty Diagnoses / Procedures Referred By Darío alston Referred To Contact Diagnoses Typical atrial flutter (CMS/HCC) (HCC) Procedures Transthoracic Echo Complete W Doppler/CF Jessa Aguayo MD Phone: tel: fax: [address] [address] Referral ID Status Reason Start Date Expiration Date Visits Re quested Visits Authorized [id number] Closed 01/15/2022 02/14/2023 1 1 * Diagnostic Imaging (Routine) - Closed Specialty Diagnoses / Procedures Referred By Contac t Referred To Contact Diagnoses Pain in left leg Procedures US VEIN DUPLEX LOWER EXTREMITY LEFT LIMITED, UNILATERAL Jessa Aguayo MD Phone: tel: fax: [address] [address] Referral ID Status Reason Start Date Expiration Date Visits Re quested Visits Authorized [id number] Closed 01/15/2022 02/14/2023 1 1 Reason for Visit * Reason Comments Follow-up Atrial Fibrillation Congestive Heart Failure Encounter Details Date Type Department Care Team (Late st Contact Info) Description 01/15/2022 9:00 AM CDT Office Visit [place] Teletypewriter Installer [address] [address] Jessa Aguayo MD [address] [address] Typical atrial flutter (CMS/HCC) (HCC) (Primary Dx); Pain in left leg; Diastolic CHF, acute (CMS/HCC) (HCC) Social History Tobacco Use Types [...] on file 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 Gender Identity Not on file Sexual Orientation Not on file documented as of this encounter Last Filed Vital Signs Vital Sign Reading Time Taken Comments Blood Pressure 141/76 01/15/2022 9:38 AM CDT Pulse 61 01/15/2022 9:38 AM CDT Temperature 37 ??C (98.6 ??F) 01/15/2022 9:38 AM CDT Respiratory Rate 16 01/15/2022 9:38 AM CDT Oxygen Saturation - - Inhaled Oxygen Concentration - - Weight 109.8 kg (242 lb) 01/15/2022 9:38 AM CDT Height 167.6 cm (5' 6 ) 01/15/2022 9:38 AM CDT Body Mass Index 39.06 01/15/2022 9:38 AM CDT documented in this encounter Progress Notes * Jessa Aguayo MD - 01/15/2022 9:00 AM CDT Cardiology note 01/15/2022 This note contains information and findings from prior encounters which remain the same for today'sencounter. I have reviewed and made updates where applicable. Reason for Office Visit: Chief Complaint Patient presents with ??? Follow-up ??? Atrial Fibrillation ??? Congestive Heart Failure loop recorder versus event monitor History of Present Illness: Mervat Ruff is a 56 y.o. female who arrived [...] electrocardiograms are not available for my review 1. 02/07/2020: Since discharge patient has had no [...] knees ??? CHF (congestive heart failure) (CMS/HCC) ([facility]) ??? HX OTHER MEDICAL Headache, migraine ??? Ventricular tachycardia (CMS/HCC) ([facility]) Past Surgical History: Procedure Laterality Date ??? APPENDECTOMY 2001 ??? SECTION 1996 section ??? HYSTERECTOMY 2011 ??? JOINT REPLACEMENT ??? KNEE ARTHROSCOPY Bilateral 2019 Family History Problem [...] Substance Use Topics ??? Alcohol use: Yes ??? Drug use: Never Allergies: Allergies Allergen Reactions ??? Latex Other (See comments) and Rash When wears latex herself Reaction: Rash, ??? Penicillins Other (See comments) and Rash As a child / has had penicillin since then with no problems Reaction: Rash, Medications: Current Outpatient Medications Medication Sig Dispense Refill ??? aspirin 81 mg capsule Take 162 mg by mouth daily ??? buPROPion (WELLBUTRIN) 100 mg tablet Take 100 mg by mouth daily ??? edhjezucvw-rqejrtbkrprhh-cgarcthx (ESGIC) 50-325-40 mg per tablet dcxpsigyre-ytzluitdtfetr-ypfrwlzq 50 mg-325 mg-40 mg tablet TAKE 1 TAB BY MOUTH EVERY 6 HOURS NEEDED FOR HEADACHES. ??? furosemide (LASIX) 20 mg tablet Take 20 mg by mouth as needed ??? LORazepam (ATIVAN) 0.5 mg tablet Take 0.5 mg by mouth as needed ??? magnesium 30 mg tablet Take 30 mg by mouth 2 (two) times a day ??? metoprolol XL (TOPROL-XL) 50 mg extended release tablet Take 50 mg by mouth daily ??? rOPINIRole (REQUIP) 0.25 mg tablet as needed [...] ProBNP: 12/25/2019 ? NT-proBNP 1,512 (H) ?? EK12/25/201901/13 EKG normal sinus rhythm Echocardiogram 12/26/2019: Conclusions: Normal left ventricular systolic [...] tenderness Shortness of breath with chest tightness Recommendation Venous Doppler Echocardiogram Venus stress test If the workup is negative follow-up in 6 months Diagnoses and all orders for this visit: Typical atrial flutter (CMS/HCC) (HCC) (Primary) - ECG 12 lead No follow-ups on file. 10:02 AM Jessa Aguayo MD Cc:Wali Pak MD documented in this encounter Plan of Treatment Not on file documented as of this encounter Procedures Procedure Name Priority Date/Time Associated Diagnosis Comments ECG 12-LEAD Routine 01/15/2022 Typical atrial flutter (CMS/HCC) (HCC) documented in this encounter Results * TRANSTHORACIC ECHO (TTE) COMPLETE W DOPPLER/CF WO CONTRAST (02/09/2022 8:07 AM CDT) Anatomical Region Laterality Modality Ultrasound 02/09/2022 7:3 8 AM CDT Narrative 02/09/2022 11:50 AM CDT [address] [address] Echocardiogram Report Patient Name: MERVAT RUFF : 1965 Study Date: 02/09/2022 7:38:23 [...] Procedure Note Bayron Collier MD - 02/09/[address] [place] [address] Echocardiogram Report Patient Name: MERVAT RUFFPatient ID: [id number] : [id number] Date: 02/09/2022 7:38:23 AM Gender: FAccession #: [id number] Tech: JCLocation: Echo Lab 3 Ref.Provider: JESSA [...] MD CV ECHO PROCEDURES Fin al Result * US VEIN DUPLEX LOWER EXTREMITY LEFT [...] by: Albert Summers M.D. Jessa Aguayo MD [facility] US PROCEDURES Mary l Result * NM MPI SPECT (Rest and/or Stress) Multiple Studies (01/26/2022 9:06 AM CDT) Anatomical Region Laterality Modality Body N/A Nuclear Medicine 01/26/2022 6:32 AM CDT Narrative 01/26/2022 12:17 PM CDT [address] [place] [address] Lexiscan Report Patient Name: MERVAT RUFF M : [...] . Electronically Signed By: Jag Gil MD, [facility] 2022-01-26 13:36:20 CDT Procedure Note Charley Arana MD / Jag Gil MD - 01/26/[address] [place] [address] Lexiscan Report Patient Name: MERVAT RUFF MPatient ID: [id number] : [id number] Date: 2022-01-26 6:32:04 AM Gender: FAccession #: [id number] Tech: Ref.Provider: JESSA AGUAYO Height(Cm): BSA: Weight(Kg): [...] . Electronically Signed By: Jag Gil MD, [facility] 2022-01-26 13:36:20 CDT Jessa Aguayo MD [facility] PROCEDURES Edit ed Result - Final * ECG 12 lead (01/15/2022) us Jessa Aguayo MD ECG ORDERABLES Final Result documented in this encounter Visit Diagnoses Diagnosis Typical atrial flutter (CMS/HCC) (HCC)- Primary Pain in left leg Diastolic CHF, acute (CMS/HCC) (HCC) Diastolic CHF, acute (CMS/HCC) (HCC) Pain in left leg Typical atrial flutter (CMS/HCC) (HCC) documented in this encounter Discontinued Medications Medication Sig Discontinue Reason Start Date End Da te temazepam (RESTORIL) 15 mg capsuleIndications:In somnia Take 1 capsule (15 mg total) by mouth nightly as needed for sleep 12/27/2020 01/15/2022 orphenadrine ER (NORFLEX) 100 mg 12 hr tablet orphenadrine citrate ER 100 mg tablet,extended release TAKE 1 TAB BY MOUTH 2 TIMES DAILY NEEDED FOR MUSCLE SPASMS. 01/15/2022 ciprofloxacin (CIPRO) 500 mg tablet TAKE 1 TABLET BY MOUTH TWICE A DAY FOR 10 DAYS 12/13/2020 01/15/2022 cholecalciferol (cholecalciferol) 400 unit capsule 01/15/2022 documented as of this encounter Care Teams Assembler Movement Relationship Specialty Start Date End Date Wali Pak MD [address] [place] [address] PCP - General 03/26/20 documented as of this encounter
--- OUTSIDE RECORDS SUMMARY | 2024-10-13 16:13 | XMS_ITS | Encounter Summary ---
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 Moved her appt up to December CTOR PROSPECT * Telephone Encounter - Jessa Aguayo MD - 12/10/2021 10:52 AM DIRECTOR PROSPECT Looks like things are okay if she is still concerned you can bring her appointment closer CTOR PROSPECT * Telephone Encounter - Alice Benito MA - 12/09/2021 8:57 AM CST Pt last seen KAYLEEN on , scheduled with on 02/19/2022. Pt is calling with complaint of slight dizziness and hand numbness. She said yesterday while driving she had to snout puller twice due to the dizziness. This morning she is feeling slightly better but still some dizziness on exertion. She is drinking a lot of water. BP has been 120s/70s and heart rate between 55-60. She is not having anypalpitations but does feel some shocking pain on her left side right above her breast. She said she wouldn't describe it as chest pain but a shock Please advise. Pt aware if she develops any chest pain or worsening SOB go to ER CTOR PROSPECT documented in this encounter Plan of Treatment Not on file documented as of this encounter Visit Diagnoses Not on filedocumented in this encounter Care Teams Traveling Inventory Associate Relationship Specialty Start Date End Date Wali Pak MD [address] [place] [address] PCP - General 03/26/20 documented as of this encounter
--- OUTSIDE RECORDS SUMMARY | 2024-10-13 16:13 | XMS_ITS | Encounter Summary ---
Author Organization [facility] Address 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 Camacho. Patient stated she is having a monitor put in her chest on October [address] Camacho would like for her sleep study to be completed prior. I scheduled the patient an appointment with us on 10/10 S EFFECTIVENESS MANAGER documented in this encounter Plan of Treatment Not on file documented as of this encounter Visit Diagnoses Not on filedocumented in this encounter Care Teams Lead Technical Writer Relationship Specialty Start Date End Date Wali Pak MD [address] [place] [address] PCP - General 03/26/20 documented as of this encounter
--- OUTSIDE RECORDS SUMMARY | 2024-10-13 16:13 | XMS_ITS | Encounter Summary ---
Author Organization [facility] Address [address] [place] [address] Care Team Providers Care Ore Miner Blasting Name Role Phone Wali Pak MD Primary Care Provider +1- [phone] Encounter Details Date Type Department Care Team (Late st Contact Info) Description 11/12/2020 3:25 PM COORDINATOR HOTELS Lab [address] [address] Violeta Dash MD [address] [place], [place] [id number] JERAMY (obstructive sleep apnea) Discharge Disposition: Discharge to home or self [...] file Legal Sex Female 1:15 AM COORDINATOR HOTELS Gender Identity Not on file Sexual Orientation Not on file documented as of this encounter Discharge Disposition Disposition Code Departure Means Destination Discharge to home or self care documented in this encounter Plan of Treatment Not on file documented as of this encounter Procedures Procedure Name Priority Date/Time Associated Diagnosis Comments COVID-19 CORONAVIRUS RNA Routine 11/12/2020 3:24 PM COORDINATOR HOTELS JERAMY (obstructive sleep apnea) documented in this encounter Results * COVID-19 Coronavirus RNA Nasopharyngeal (11/12/2020 3:24 PM COORDINATOR HOTELS) COVID-19 RNA Not Detected [facility] ([place]) Comment: Testing performed as a component of ??a specimen pool. ??Negative results should be treated as presumptive and, if inconsistent with clinical signs and symptoms or necessary for patient management, pooled samples should be tested individually. Negative results do not preclude SARS-CoV-2 infection and must not be used as the sole basis for patient management decisions. Negative results must be considered in the context of a patient? s recent exposures, history, presence of clinical signs and symptoms consistent with COVID-19. Interpretive Data Testing performed by the [facility] Molecular Infectious Disease Laboratory. The 2019-Novel Coronavirus Assay (COVID-19) Real Time RT-PCR assay is for in vitro diagnostic use under FDA emergency use authorization only. A negative RT-PCR result does not preclude infection with COVID-19 and should not be used as the sole basis for treatment or other patient management decisions. Additional sample types have been validated according to CLIA regulations. ?? Current Interpretive Data was last revised on 2020. Testing performed by: [facility], [address] [facility] [place]., [address] Employeed in healthcare? Unknown [facility] ([place]) Comment:Testing performed by : [facility], [address] [place] [address], [place]., [address] status? No [facility] ([place]) Comment:Testing performed by : [facility], [address] [facility] [place]., [address] Group care resident? No [facility] ([place]) Comment:Testing performed by : [facility], [address] [place]., [address] Hospitalized? No [facility] ([place]) Comment:Testing performed by : [facility], [address] [facility], [address] Is patient in ICU? No [facility] ([place]) Comment:Testing performed by : [facility], [address] [facility], [address] Symptomatic as defined by CDC? No [facility] ([place]) Comment:Testing performed by : [facility], [address] [facility], [address] Nasopharyngeal 11/12/2020 3: 24 PM COORDINATOR HOTELS 11/12/2020 11:03 PM COORDINATOR HOTELS Narrative [facility] ([place]) - 11/13/2020 11:26 AM COORDINATOR HOTELS Screening must be completed prior to sleep study What is the reason for testing?->Screening prior to scheduled procedure or surgery us Violeta Dash MD LAB MICROBIOLOGY - GENERAL ORDER ARJUN Final Result [facility] ([place]) 1 [facility] Department [place] [address] documented in this encounter Visit Diagnoses Diagnosis JERAMY (obstructive sleep apnea) Obstructive sleep apnea (adult) (pediatric) documented in this encounter Care Teams Ore Miner Blasting Relationship Specialty Start Date End Date Wali Pak MD [address] [place] [address] PCP - General 03/26/20 documented as of this encounter
--- OUTSIDE RECORDS SUMMARY | 2024-10-13 16:13 | XMS_ITS | Encounter Summary ---
Author Organization [facility] Address [address] [place] [address] Care Team Providers Care Line Construction Supervisor Name Role Phone Wali Pak MD Primary Care Provider [phone]- [phone] Reason for Referral * Cardiology (Routine) - Closed Specialty Diagnoses / Procedures Referred By Contac t Referred To Contact Diagnoses Typical atrial flutter (CMS/HCC) (HCC) Procedures Event Monitor, 30 Day Event Addi Gibbs DO [address] [facility] [address] [place] [address] [place] [address] Phone: tel: fax: [address] [address] Referral ID Status Reason Start Date Expiration Date Visits Re quested Visits Authorized [id number] Closed 10/09/2020 11/08/2021 1 1 OGRAPHIC PRESS SET UP OPERATOR Reason for Visit * Cardiology (Routine) - Closed Specialty Diagnoses / Procedures Referred By Darío alston Referred To Contact Diagnoses Typical atrial flutter (CMS/HCC) (HCC) Procedures Event Monitor, 30 Day Event Addi Gibbs DO [address] [facility] [address] [place] [address] [place] [address] Phone: tel: fax:[phone] [facility] [address] [place] [address] Referral ID Status Reason Start Date Expiration Date Visits Re quested Visits Authorized [id number] Closed 10/09/2020 11/08/2021 1 1 Encounter Details Date Type Department Care Team (Latest Contact Info) Description 11/01/2020 1:00 PM FLEXOGRAPHIC PRESS SET UP OPERATOR - 11/01/2020 11:59 PM FLEXOGRAPHIC PRESS SET UP OPERATOR Hospital Encounter [facility] Cardiology 1 [place] [address] Addi Gibbs, DO [address] [facility] [address] [place] [address] Typical atrial flutter (CMS/HCC) Discharge Disposition: Discharge to home or self [...] Average Number of Drinks Not on file Frequency of Binge Drinking Not on file 11/2019 PHQ-2 Answer Date Recorded PHQ-2 Total Score (If total score is 3 or more points, staff should administer the PHQ-9) 0 12/25/2019 Comments No Sex and Gender Information Value Date Recorded Sex Assigned at Not on file Legal Sex Female 1:15 AM FLEXOGRAPHIC PRESS SET UP OPERATOR Gender Identity Not on file Sexual Orientation Not on file documented as of this encounter Medications at Time of Discharge buPROPion (WELLBUTRIN) 100 mg tablet Take 1 tablet (100 mg total) by mouth daily 12/28/2019 LORazepam (ATIVAN) 0.5 mg tablet Take 1 tablet (0.5 mg total) by mouth as needed 02/05/2020 butalbital-acetam inophen-caffeine (ESGIC) 50-325-40 mg per tablet butalbital-ac etaminophen-c affeine 50 mg-325 mg-40 mg tablet 08/06/2020 11/29/2020 Eliquis 5 mg tablet TAKE 1 TABLET BY MOUTH EVERY 12 HOURS 60 tablet 2 10/21/2020 11/29/2020 furosemide (LASIX) 20 mg tablet Take 1 tablet (20 mg total) by mouth as needed 02/05/2020 09/14/2024 metoprolol XL (TOPROL-XL) 50 mg extended release tablet Take 50 mg by mouth daily 03/03/2022 documented as of this encounter Discharge Disposition Disposition Code Departure Means Destination Discharge to home or self care documented in this encounter Miscellaneous Notes * Result Encounter Note - Addi Gibbs DO - 11/01/2020 1:00 PM FLEXOGRAPHIC PRESS SET UP OPERATOR Contact patient with test results. No change required. OGRAPHIC PRESS SET UP OPERATOR * Result Encounter Note - Anisa Carroll MA - 11/01/2020 1:00 PM FLEXOGRAPHIC PRESS SET UP OPERATOR Discussed at ov 11/29/2020 OGRAPHIC PRESS SET UP OPERATOR documented in this encounter Plan of Treatment Not on file documented as of this encounter Procedures Procedure Name Priority Date/Time Associated Diagnosis Comments EVENT MONITOR Routine 11/01/2020 1:48 PM FLEXOGRAPHIC PRESS SET UP OPERATOR Typical atrial flutter (CMS/HCC) documented in this encounter Results * Event Monitor, 30 Day Event (11/01/2020 1:48 PM FLEXOGRAPHIC PRESS SET UP OPERATOR) Anatomical Region Laterality Modality Electrocardiogra phy 11/30/2020 6:00 AM FLEXOGRAPHIC PRESS SET UP OPERATOR Narrative 12/02/2020 8:53 AM FLEXOGRAPHIC PRESS SET UP OPERATOR [address] , [place] [address] EVENT MONITOR Patient Name: RAMESH RUFF M : 7 Study Date: 11/30/2020 06:00:00 Gender: F Tech: [...] Signed By: Dr Qamar Ramirez 2020-12-02 08:53:41 FLEXOGRAPHIC PRESS SET UP OPERATOR Procedure Note Qamar Ramirez MD - 12/02/[address] [place] [address] EVENT MONITOR Patient Name: RAMESH RUFF MPatient ID: [id number] : [id number] Date: 11/30/2020 06:00:00 Gender: FAccession #: [id number] Tech: Ref.Provider: ADDI GIBBS Height(Cm): BSA: Weight(Kg): [...] Signed By: Dr Qamar Ramirez 2020-12-02 08:53:41 FLEXOGRAPHIC PRESS SET UP OPERATOR Addi Gibbs DO [facility] PROCEDU RES Final Result documented in this encounter Visit Diagnoses Diagnosis Typical atrial flutter (CMS/HCC) (HCC) documented in this encounter Care Teams Line Construction Supervisor Relationship Specialty Start Date End Date Wali Pak MD [address] [place] [address] PCP - General 03/26/20 documented as of this encounter
--- OUTSIDE RECORDS SUMMARY | 2024-10-13 16:13 | XMS_ITS | Encounter Summary ---
Author Organization [facility] Address [address] [facility] [address] [place] [address] Care Team Providers Care Hot Mill Observer Name Role Phone Wali Pak MD Primary Care Provider [phone]- [phone] Reason for Visit * Reason Comments Sleep Apnea discuss sleep study results Encounter Details Date Type Department Care Team (Late st Contact Info) Description 11/29/2020 9:45 AM HOT TAMALE MAN Office Visit [facility] Sleep Medicine at [address] [place] [address] Leyla Bonilla MD [address] [place] [address] [address] [place] [address] JERAMY (obstructive sleep apnea) (Primary Dx); Insomnia, unspecified type; Obesity, unspecified classification, unspecified obesity type, unspecified whether serious comorbidity present Social History Tobacco Use Types Packs/Day Years [...] on file Legal Sex Female 1:15 AM HOT TAMALE MAN Gender Identity Not on file Sexual Orientation Not on file documented as of this encounter Last Filed Vital Signs Vital Sign Reading Time Taken Comments Blood Pressure 130/82 11/29/2020 9:50 AM HOT TAMALE MAN Pulse 57 11/29/2020 9:50 AM HOT TAMALE MAN Temperature 36.1 ??C (97 ??F) 11/29/2020 9:50 AM HOT TAMALE MAN Respiratory Rate - - Oxygen Saturation 99% 11/29/2020 9:50 AM HOT TAMALE MAN Inhaled Oxygen Concentration - - Weight 108.7 kg (239 lb 11.2 oz) 11/29/2020 9:50 AM HOT TAMALE MAN Height 167.6 cm (5' 6 ) 11/29/2020 9:50 AM HOT TAMALE MAN Body Mass Index 38.69 11/29/2020 9:50 AM HOT TAMALE MAN documented in this encounter Progress Notes * Leyla Bonilla MD - 11/29/2020 9:45 AM CST SUBJECTIVE Chief Complaints: Snoring, unrefreshing sleep, excessive daytime fatigue, atrial flutter HPI: Mervat Haro is a 55 y.o. femalewith a PMHx significant for atrial flutter, history of SVT, diastolic congestive heart failure presents to the sleep medicine clinic for follow up on obstructive sleep apnea. Obstructive sleep apnea: Patient recently had a polysomnogram done for history of snoring, witnessed apneas morning headaches and daytime fatigue. Patient is here to discuss the results. History: Patient was found to have SVT [...] during sleep. ESS: 9 Past sleep evaluation: PSG from 11/15/2020: AHI [...] ??? buPROPion, 100 mg, oral, Daily ??? cholecalciferol, ??? furosemide, 20 mg, oral, PRN ??? [...] pain. Denies any skin rash. Physical Exam: There were no vitals filed for this visit. BMI: There is no height or weight on file to calculate BMI. Wt Readings from Last 6 Encounters: 11/29/20 109.3 kg (241 lb) 11/01/20 107.8 kg (237 lb 9.6 oz) 09/27/20 109.3 kg (241 lb) 05/24/20 108.4 kg (239 lb) 02/07/20 103 kg (227 lb) 12/25/19 101.7 kg (224 lb 3.3 oz) BMI Readings from Last 6 Encounters: 11/29/20 38.90 kg/m?? 11/01/20 38.35 kg/m?? 09/27/20 38.90 kg/m?? 05/24/20 38.58 kg/m?? 02/07/20 36.64 kg/m?? 12/25/19 36.19 kg/m?? Physical Exam General appearance: Alert, oriented, [...] REM RDI 30.0. Sleep latency -7.2 minutes. Data reviewed today: Dr. Camacho, cardiology note: Atrial [id number] anticoagulation discussion noted Lab results: CO2 - 27, TSH - 2.99 Echocardiogram result from 12/2019: Ejection fraction 60-65% Stress test from 02/2020: Normal PSG result from 11/15/2020: Reviewed as above Assessment and Plan: 1. Mild obstructive sleep apnea: o Recent PSG showed mild obstructive sleep apnea, which was worse in supine position and during REMsleep. o Given the history of atrial flutter and increased severity in supine position and during REM sleep, patient will benefit from treatment of mild obstructive sleep apnea. o Will start APAP at 5-20 cm of water o Follow-up in 4 weeks to ensure efficacy and compliance. o The physiology of sleep disordered breathing [...] Return to clinic in 4 weeks after APAP has been started. Voice recognition software [employer] was used dictate and transcribe this document. Fund Raiser variances may occur. Despite proofreading, typographical errors may occur. Leyla Bonilla MD [facility] Sleep Medicine CC: Wali Pak MD TAMALE MAN TAMALE MAN documented in this encounter Miscellaneous Notes * Addendum Note - Leyla Bonilla MD - 11/29/2020 9:45 AM CSTAddended by: LEYLA BONILLA on: 11/29/2020 10:36 AM Modules accepted: Orders TAMALE MAN documented in this encounter Plan of Treatment Not on file documented as of this encounter Visit Diagnoses Diagnosis JERAMY (obstructive sleep apnea)- Primary Obstructive sleep apnea (adult) (pediatric) Insomnia, unspecified type Obesity, unspecified classification, unspecified obesity type, unspecified whether serious comorbidity present documented in this encounter Care Teams Hot Mill Observer Relationship Specialty Start Date End Date Wali Pak MD [address] [place] [address] PCP - General 03/26/20 documented as of this encounter
--- OUTSIDE RECORDS SUMMARY | 2024-10-13 16:13 | XMS_ITS | Encounter Summary ---
Author Organization [facility] Address [address] [place] [address] Care Team Providers Care Hotel Maintenance Engineer Name Role Phone Wali Pak MD Primary Care Provider [phone]- [phone] Encounter Details Date Type Department Care Team (Late st Contact Info) Description 05/24/2020 10:20 AM CDT Lab [facility] [address] [place] [address] Vel Camacho, [address] [address] Typical atrial flutter (CMS/HCC) Discharge Disposition: Discharge [...] on file Legal Sex Female 1:15 AM MODEL TECHNICIAN Gender Identity Not on file Sexual Orientation Not on file documented as of this encounter Discharge Disposition Disposition Code Departure Means Destination Discharge to home or self care documented in this encounter Miscellaneous Notes * Result Encounter Note - Anisa Carroll MA - 05/29/2020 9:08 AM CDT lmom---detailed ... Anisa SAMANO * Result Encounter Note - Vel Camacho DO - 05/28/2020 4:41 PM CDT Contact patient with test results. No change required. documented in this encounter Plan of Treatment Not on file documented as of this encounter Procedures Procedure Name Priority Date/Time Associated Diagnosis Comments PRO B-TYPE NATRIURETIC PEPTIDE Routine 05/24/2020 10:23 AM CDT Typical atrial flutter (CMS/[facility]) documented in this encounter Results * Pro B-type natriuretic [...] as advanced age. - References: 1. Rosanna MOY et.al. Eur Heart J. 2006:27:330-337. 2. Silke RW, Eli DING. J. AM Kenney Cardiol: Cardiovasc Imag. 2009;2: 216- 225. Interpretive Data Last Revised Date: 2018. Blood specimen (specimen) 05/24/2020 10:23 AM CDT 05/24/2020 10:40 AM CDT Vel Camacho DO LAB BLOOD ORDERABLES Final Result Performing Organization Address City/State/[facility] Co de Phone Number [facility] ([place]) 1 [facility] Department [place] [address] documented in this encounter Visit Diagnoses Diagnosis Typical atrial flutter (CMS/HCC) (HCC) documented in this encounter Care Teams Hotel Maintenance Engineer Relationship Specialty Start Date End Date Wali Pak MD [address] [place] [address] PCP - General 03/26/20 documented as of this encounter
--- OUTSIDE RECORDS SUMMARY | 2024-10-13 16:13 | XMS_ITS | Encounter Summary ---
Author Organization [facility] Address [address] [address] Care Team Providers Care Bookstore Clerk Name Role Phone Wali Pak MD Primary Care Provider [phone]- [phone] Reason for Referral * Consultation (Routine) - Closed Specialty Diagnoses / Procedures Referred By Contac t Referred To Contact Physical Therapy Diagnoses Arthritis of right knee Caro Shine MD Phone: tel: fax: [address] [phone] Referral ID Status Reason Start Date Expiration Date V isits Requested Visits Authorized [id number] Closed Specialty Services Required 12/02/2022 01/01/2024 24 24 Question Answer PTRFR PT Evaluate and Treat Therapy options discussed with patient? Yes Location provided for therapy services is: Patient requested/Patient preferred Please select the performing region: [facility] [[id number]] # of visits: 24 Comments Call pt to schedule 1-2x/week for 8 weeks Evaluate, develop and implement plan of care, and treat right knee pain with moderate medial and patellofemoral degenerative. Flexibility, Neuromuscular re-education, range of motion, strengthening - core and pelvic stability, gluteus medius strengthening, Mobilization, Manual therapy, pain reduction. Modalities PRN. Please provide home exercise program. ING REPAIR TECHNICIAN Reason for Visit * Reason Comments R Knee Pain Pt is here for new e susana of their R Knee pain. Pt states that approx _. The pain is characterized as (interm/con/) (sym/location). Pt's pain is worse with _. Pt uses _ as needed for pain. Pain: /10 current, /10 worst. Hx _. Encounter Details Date Type Department Care Team (Late st Contact Info) Description 12/02/2022 10:00 AM HEATING REPAIR TECHNICIAN Office Visit [facility] Sports Medicine and Primary Care at [address] [place] [address] Caro Shine MD [address] [place] [address] [address] [place] [address] Arthritis of right knee (Primary Dx) Social [...] on file Legal Sex Female 1:15 AM HEATING REPAIR TECHNICIAN Gender Identity Not on file Sexual Orientation Not on file documented as of this encounter Last Filed Vital Signs Vital Sign Reading Time Taken Comments Blood Pressure 136/82 12/02/2022 10:16 AM HEATING REPAIR TECHNICIAN Pulse 70 12/02/2022 10:16 AM HEATING REPAIR TECHNICIAN Temperature - - Respiratory Rate - - Oxygen Saturation - - Inhaled Oxygen Concentration - - Weight 112.8 kg (248 lb 11.2 oz) 2022 10:16 AM HEATING REPAIR TECHNICIAN Height 167.6 cm (5' 6 ) 12/02/2022 10:1 6 AM HEATING REPAIR TECHNICIAN Body Mass Index 40.14 12/02/2022 10:16 AM HEATING REPAIR TECHNICIAN documented in this encounter Patient Instructions * Patient Instructions* Caro Shine MD - 12/02/2022 10:00 AM HEATING REPAIR TECHNICIAN Trial of physical therapy Modify activities to avoid to aggravating activities Tips to help your joints feel better: [...] help with pain in larger joints like thehip, knee, shoulders, and back Medications that you [...] more than 2 joints at a time Glucosamine chondroitin 500/400 three times a day may provide some pain relief but may take a monthbefore you see the results; you could take this with one of the above medicines as well. If no benefit after 2-3 months of use, discontinue. Avocado Soybean Unsaponifiable 300 mg supplement once a day may provide some relief but can take upto 4-6 weeks to see benefit. If not benefit after 2-3 months of use, discontinue. Turmeric, curcumin, and fish oil can be tried as well Topical rubs such as Aspercreme, Bengay, Capsaicin, etc may also help ING REPAIR TECHNICIAN documented in this encounter Progress Notes * Devin Casiano MD - 12/02/2022 10:00 AM CST SUBJECTIVE: Mervat Haro is a 57 y.o. female here for evaluation of R knee pain. Has a h/o b/l knee arthroscopies. 6 mo ago she started having worsening R knee pain that has been getting worse. She states that she is on her feet all day and that at the end of it her knee will be swollen. It got bad enough where she went to [facility] for evaluation. They did xrays and d/c'd her w/ prednisone and naproxen and flexiril. She states that these medications have helped a little w/ her pain. Otherwise, she has not tried anything for the pain. She states that the pain is localized along the medial aspect of her knee. No radiation. Sharp, dull and achy pain. Moderate-severe in severity. Current medications: Metformin Metoprolol Lasix - for b/l LE edema and h/o SVT wellbutrin Current Outpatient Medications on File Prior to Visit Medication Sig Dispense Refill cyclobenzaprine (FLEXERIL) 10 mg tablet Take 10 mg by mouth 3 (three) times a day as needed naproxen (NAPROSYN) 500 mg tablet Take 500 mg by mouth 2 (two) times a day as needed aspirin 81 mg capsule Take 162 mg by mouth daily buPROPion (WELLBUTRIN) 100 mg tablet Take 100 mg by mouth daily jhnounugdl-rsaflzpqjsxqj-xorzlnhn (ESGIC) 50-325-40 mg per tablet chkzzynlgn-uzstnpzsigomr-dudxqban96 mg-325 mg-40 mg tablet TAKE 1 TAB BY MOUTH EVERY 6 HOURS NEEDED FOR HEADACHES. (Patient not taking: Reported on 08/06/2022) furosemide (LASIX) 20 mg tablet Take 20 mg by mouth as needed LORazepam (ATIVAN) 0.5 mg tablet Take 0.5 mg by mouth as needed magnesium 30 mg tablet Take 30 mg by mouth 2 (two) times a day metFORMIN (GLUCOPHAGE) 500 mg tablet Take 500 mg by mouth 2 (two) times a day with meals metoprolol XL (TOPROL-XL) 50 mg extended release tablet Take 1 tablet (50 mg total) by mouth 2 (two) times a day 180 tablet 3 predniSONE (DELTASONE) 50 mg tablet Take 50 mg by mouth daily rOPINIRole (REQUIP) 0.25 mg tablet as needed No current facility-administered medications on file prior to visit. Allergies Allergen Reactions Latex Other (See comments) and Rash When wears latex herself Reaction: Rash, Penicillins Other (See comments) and Rash As a child / has had penicillin since then with no problems Reaction: Rash, Social History Tobacco Use Smoking status: Former Packs/day: 0.05 Years: 25.00 Pack years: 1.25 Types: Cigarettes Start date: 12/24/1993 Quit date: 12/24/2018 Years since quittin.9 Smokeless tobacco: Never Substance and Sexual Activity Drug use: Never Sexual activity: Yes Partners: Male control/protection: Hysterectomy Alcohol Use: Not on file PMH, PSH, FamHx all updated and reviewed as indicated in the electronic chart ROS: Gen: Denies fevers, chills, weight changes HEENT: Denies runny nose, congestion, sorethroat CV: Denies chest pain, palpitations Resp: Denies shortness of breath, dyspnea on exertion GI: Denies abdominal pain, nausea, vomiting, diarrhea OBJECTIVE: Vitals: 12/02/22 1016 BP: 136/82 Pulse: 70 Weight: 112.8 kg (248 lb 11.2 oz) Height: 167.6 cm (5' 6 ) Body mass index is 40.14 kg/m??. Appears: alert, well appearing, and in no distress Lungs: no tachypnea, retractions, or cyanosis CV exam: regular rate and rhythm, normal S1 and S2, no murmurs MSK: b/l knees and hips examined, limited ROM 2/2 pain, she has stiffness on flexion and w/ full extension. She has crepitus b/l. She has tenderness along the medial joint line on the R. Neg varus and valgus stress. Neg anterior/posterior drawer. ASSESSMENT & PLAN: Diagnosis Plan 1. Arthritis of right knee Ambulatory referral order to Physical Therapy - Arthritis - xrays examined and has osteophytes noted and some narrowing of the joint space. Likely has moderate arthritis causing her current pain. - discussed pain management w/ OTC tylenol and ibuprofen. - discussed weight loss and exercise in improving pain in her knees. - will send for PT Devin Casiano MD Cosigned by Caro Shine MD at 12/02/2022 6:12 PM HEATING REPAIR TECHNICIAN ING REPAIR TECHNICIAN ING REPAIR TECHNICIAN Associated attestation - Caro Shine MD - 12/02/2022 6:12 PM HEATING REPAIR TECHNICIAN I have seen and examined the patient. I agree with the findings and plan of care as documented in the resident/fellow's note. Please see my separate note from this encounter for additional details. Caro Shine MD * Caro Shine MD - 12/02/2022 10:00 AM CST [facility] Primary Care Sports Medicine at [facility] Consult PCP: Wali Pak MD Chief Complaint Patient presents with R Knee Pain Pt is here for new eval of their R Knee pain. Pt states that approx _. The pain is characterized as(interm/con/) (sym/location). Pt's pain is worse with _. Pt uses _ as needed for pain. Pain: /10 current, /10 worst. Hx _. Subjective Mervat Haro is a 57 y.o. female who presents with complaint of right knee pain. Medial right knee pain for 6 months. Intermittent swelling. Some sharp pain and difficulty wbing when flares. No gross instability. May have some catching No prior Tx other than recent ER visit Given rx for pain meds, muscle relaxer, and oral steroid Past Medical History: Diagnosis Date Arthritis osteoarthritis bilateral knees CHF (congestive heart failure) (CMS/HCC) ([facility]) Depression HX OTHER MEDICAL Headache, migraine Type 2 diabetes mellitus (HCC) Ventricular tachycardia Past Surgical History: Procedure Laterality Date APPENDECTOMY 2001 SECTION 1995 section HYSTERECTOMY 2012 KNEE ARTHROSCOPY Bilateral 2019 Current Outpatient Medications on File Prior to Visit Medication Sig Dispense Refill cyclobenzaprine (FLEXERIL) 10 mg tablet Take 10 mg by mouth 3 (three) times a day as needed naproxen (NAPROSYN) 500 mg tablet Take 500 mg by mouth 2 (two) times a day as needed aspirin 81 mg capsule Take 162 mg by mouth daily buPROPion (WELLBUTRIN) 100 mg tablet Take 100 mg by mouth daily dkjqvdozji-wgljjbjxtoxlm-vtetwlwl (ESGIC) 50-325-40 mg per tablet pmizzwotbn-ubvnmrdpxrfdq-kqnbaxsh78 mg-325 mg-40 mg tablet TAKE 1 TAB BY MOUTH EVERY 6 HOURS NEEDED FOR HEADACHES. (Patient not taking: Reported on 08/06/2022) furosemide (LASIX) 20 mg tablet Take 20 mg by mouth as needed LORazepam (ATIVAN) 0.5 mg tablet Take 0.5 mg by mouth as needed magnesium 30 mg tablet Take 30 mg by mouth 2 (two) times a day metFORMIN (GLUCOPHAGE) 500 mg tablet Take 500 mg by mouth 2 (two) times a day with meals metoprolol XL (TOPROL-XL) 50 mg extended release tablet Take 1 tablet (50 mg total) by mouth 2 (two) times a day 180 tablet 3 predniSONE (DELTASONE) 50 mg tablet Take 50 mg by mouth daily rOPINIRole (REQUIP) 0.25 mg tablet as needed No current facility-administered medications on file prior to visit. Social History Tobacco Use Smoking status: Former Packs/day: 0.05 Years: 25.00 Pack years: 1.25 Types: Cigarettes Start date: 12/24/1993 Quit date: 12/24/2018 Years since quittin.9 Smokeless tobacco: Never Substance and Sexual Activity Drug use: Never Sexual activity: Yes Partners: Male control/protection: Hysterectomy Alcohol Use: Not on file Objective BP 136/82 Pulse 70 Ht 167.6 cm (5' 6 ) Wt 112.8 kg (248 lb 11.2 oz) BMI 40.14 kg/m?? General appearance: alert, well appearing, and in no distress. HEENT: NC/AT, PERRL, EOMI Resp: breathing unlabored without respiratory distress Neuro: A&Ox3, grossly non-focal Psych: normal mood and affect. right Knee: Inspection: Swelling yes, Bruising no, Quad atrophy no Palpation: Patella moderately tender to the medial border and undersurface, MCL nontender, LCL nontender, Medial Joint pipelines supervisor, Lateral joint line nontender, Hamstring tendons posteriorly nontender, Quad tendon nontender, Patellar tendon nontender, tibial tuberosity nontender, Pes anserine nontender, Gerdy's Tubercle nontender, Ballottement/effusion: No ballotable effusion. May have small effusion but difficult to appreciate due to body habitus ROM: Slight loss of full range of motion with pain to the medial joint line with over pressuring infull extension and full flexion, Special: Patellar Grind: + Patellar apprehension: no Valgus stress: no laxity with solid end point, no pain at 0 and 30 degrees flexion Varus stress: no laxity with solid end point, no pain at 0 and 30 degrees flexion Ant drawer: no laxity with solid end point, no pain Post drawer: no laxity with solid end point, no pain Tyesha: painful to medial joint line Xrays: I personally reviewed patient's films from [facility]. There is no fracture dislocation. There is likely moderate degenerative changes to the patellofemoral and medial tibiofemoral joint space on thenonweightbearing views based on the degree of osteophytosis. XR KNEE 1 OR 2 VIEWS RIGHT Anatomical Region Laterality Modality LOWER EXTREMITY right Digital Radiography knee -- -- Impression IMPRESSION: Mild arthritic change of the right knee with no acute osseous abnormality Narrative EXAM DESCRIPTION: XR KNEE 1 OR 2 [...] Electronically signed by Varun Dean M.D. CH: NICO Report ID: [id number] Reading Location: [place] [address] ASSESSMENT & PLAN: Diagnosis Plan 1. Arthritis of right knee Ambulatory referral order to Physical Therapy - Patient's symptoms likely correlate to a degree of degenerative changes. She is likely dealing withunderlying arthritis and possible degenerative meniscal tear. Symptoms isolate more to the medial joint space as well as the patellofemoral joint space. Discussed treatment options. Discussed risks and benefits of cortisone injections. After discussion patient elected to defer knee injection today.She will stay on the oral prednisone ordered by the ER. We did review the side effect profile with the ER prednisone. Patient has a funnel shaped leg so would be unlikely to find knee braces very comfortable as they would likely continuously fall down. Given this we deferred fitting her with a kneebrace in office. Recommended course of physical therapy to help strengthening make it more effective in hopes of lessening her knee pain. Patient's BMI is consistent with morbid obesity. Did discuss the role of obesity with aggravating underlying degenerative changes in the knee. Recommended patient to work on healthy diet, exercise and weight loss. With weight loss it is possible her knee symptoms will significantly improve. We did discuss the role of potential supplements as well as oecm-uba-yrtsevo pain rubs including diclofenac for knee arthritis. He can use how her pain but should use caution with oral nonsteroidal anti-inflammatory drugs given her other medical issues Pt advised to call or return if symptoms do not improve as expected in the next 6-8 weeks, pt develops signs concerning for neurologic symptoms or any other concerning symptoms. Referred for physical therapy: yes An After Visit Summary was printed and given to the patient. If patient fails to respond to conservative treatment she may ultimately want to consider a total knee replacement in the future but hopefully we can lessen her symptoms with more conservative measures. If fails physical therapy we can always consider steroid injection or hyaluronic acid injection.We did discuss the role hyaluronic acid injections but that these will need insurance pre-approval. She will follow up with me in 2 months for re-evaluation if not improving I am the primary care physician for the patient that you have requested disability papers filled out on. I do not feel qualified to estimate the requested information that may be subjective. This is not a denial or approval of disability. I am happy to send you the entire medical record for you to [place]. Thank you. Caro Shine MD ING REPAIR TECHNICIAN documented in this encounter Plan of Treatment Scheduled Referrals Name Type Priority Associated Diagnoses Order Schedule Ambulatory referral order to Physical Therapy - Outpatient Referral Routine Arthritis of right knee Expected: 12/16/2022 (Approximate), Expires: 12/02/2023 documented as of this encounter Visit Diagnoses Diagnosis Arthritis of right knee- Primary documented in this encounter Historical Medications * This list may reflect changes made after this encounter. naproxen (NAPROSYN) 500 mg tablet Take 1 tablet (500 mg total) by mouth 2 (two) times a day as needed 11/30/2022 cyclobenzaprine (FLEXERIL) 10 mg tablet Take 10 mg by mouth 3 (three) times a day as needed 11/30/2022 11/10/2023 predniSONE (DELTASONE) 50 mg tablet Take 50 mg by mouth daily 11/30/2022 12/07/2022 added in this encounter Care Teams Bookstore Clerk Relationship Specialty Start Date End Date Wali Pak MD [address] [place] [address] PCP - General 03/26/20 documented as of this encounter
--- OUTSIDE RECORDS SUMMARY | 2024-10-13 16:13 | XMS_ITS | Encounter Summary ---
Author Organization [facility] Address [address] [address] Care Team Providers Care Business Strategy Manager Name Role Phone Wali Pak MD Primary Care Provider +1- [phone] Reason for Referral * Consultation (Routine) - Closed Specialty Diagnoses / Procedures Referred By Contac t Referred To Contact Sleep Medicine Diagnoses JERAMY (obstructive sleep apnea) Vel Camacho DO [address] [place] [address] [place] [address] Phone: tel: fax: Violeta Bonilla MD [address] [place] [address] [place] [address] Phone: tel: Referral ID Status Reason Start Date Expiration Date V isits Requested Visits Authorized [id number] Closed Specialty Services Required 09/27/2020 10/27/2021 1 1 Question Answer Please select the performing region: [facility] [[id number]] Please select the performing department: [facility] [[id number]] To provider: VIOLETA BONILLA [[id number]] # of visits: 1 Comments Please call pt to schedule CLE REFINISHER Reason for Visit * Reason Comments Follow-up Encounter Details Date Type Department Care Team (Late st Contact Info) Description 09/27/2020 9:45 AM VEHICLE REFINISHER Office Visit [employer] [address] [facility] [address] [place] [address] Vel Camacho, DO [address] [facility] [address] [place] [address] JERAMY (obstructive sleep apnea) (Primary Dx); Typical atrial flutter (CMS/HCC); Current use of intermediate anticoagulation; Diastolic CHF, acute (CMS/HCC) Social History [...] on file Legal Sex Female 1:15 AM VEHICLE REFINISHER Gender Identity Not on file Sexual Orientation Not on file documented as of this encounter Last Filed Vital Signs Vital Sign Reading Time Taken Comments Blood Pressure 130/73 09/27/2020 9:46 AM VEHICLE REFINISHER Pulse 66 09/27/2020 9:46 AM VEHICLE REFINISHER Temperature 36.8 ??C (98.2 ??F) 09/27/2020 9:46 AM CS T Respiratory Rate 18 09/27/2020 9:46 AM VEHICLE REFINISHER Oxygen Saturation - - Inhaled Oxygen Concentration - - Weight 109.3 kg (241 lb) 09/27/2020 9:46 AM VEHICLE REFINISHER Height 167.6 cm (5' 6 ) 09/27/2020 9:46 AM VEHICLE REFINISHER Body Mass Index 38.9 09/27/2020 9:46 AM VEHICLE REFINISHER documented in this encounter Progress Notes * Vel Camacho, DO - 09/27/2020 9:45 AM CST Images from the original note were not included. Cardiology note Reason for Office Visit: Chief Complaint Patient presents with ??? Follow-up History of Present Illness: Mervat Haro is [...] Her proBNP had normalized when last checked. Review of Systems: Review of Systems Constitution: [...] date: 12/24/1993 Quit date: 12/24/2018 Years since quittin.7 ??? Smokeless tobacco: Never Used Substance Use [...] for this visit. Vital Signs: Vitals BP 130/73 (BP Location: Right arm, Patient Position: Sitting) Pulse 66 Temp 36.8 ??C (98.2 ??F) Resp 18 Ht 167.6 cm (5' 6 ) Wt 109.3 kg (241 lb) BMI 38.90 kg/m?? Vitals: 09/27/20 0946 BP: 130/73 Pulse: 66 Resp: 18 Temp: 36.8 ??C (98.2 ??F) Wt Readings from Last 3 Encounters: 09/27/20 109.3 kg (241 lb) 05/24/20 108.4 kg (239 lb) 02/07/20 103 kg (227 lb) Body mass index is 38.9 kg/m??. [...] Diagnoses and all orders for this visit: JERAMY (obstructive sleep apnea) (Primary) - Ambulatory referral to Sleep Medicine; Future Typical atrial flutter (CMS/HCC) Assessment & Plan: We discussed the risks and benefits of long-term anticoagulation which at this time still favor herbeing on anticoagulation. As a reasonable alternative I [...] I have also suggested consultation with Dr. Bonilla our sleep specialist. Current use of intermediate anticoagulation Diastolic CHF, acute (CMS/HCC) Return in about 1 year (around 09/27/2021). 02/07/2020 11:24 AM Vel Camacho DO Cc:Wali Pak MD CLE REFINISHER documented in this encounter Miscellaneous Notes * Assessment & Plan Note - Vel Camacho DO - 09/27/2020 11:21 AM VEHICLE REFINISHER Associated Problem(s): Paroxysmal atrial flutter (CMS/HCC) (HCC) We discussed the risks and benefits of long-term anticoagulation which at this time still favor herbeing on anticoagulation. As a reasonable alternative I [...] I have also suggested consultation with Dr. Bonilla our sleep specialist. CLE REFINISHER CLE REFINISHER documented in this encounter Plan of Treatment Scheduled Referrals Name Type Priority Associated Diagnoses Order Schedule Ambulatory referral to Sleep Medicine Outpatient Referral Routine JERAMY (obstructive sleep apnea) Expected: 09/27/2020 (Approximate), Expires: 09/27/2021 documented as of this encounter Visit Diagnoses Diagnosis JERAMY (obstructive sleep apnea)- Primary Obstructive sleep apnea (adult) (pediatric) Typical atrial flutter (CMS/HCC) (HCC) Current use of intermediate anticoagulation Diastolic CHF, acute (CMS/HCC) (HCC) documented in this encounter Discontinued Medications Medication Sig Discontinue Reason Start Date End Da te metoprolol XL (TOPROL-XL) 50 mg extended release tablet Take 1 tablet (50 mg total) by mouth daily Alternate therapy 01/22/2020 09/27/2020 documented as of this encounter Historical Medications * This list may reflect changes made after this encounter. metoprolol XL (TOPROL-XL) 50 mg extended release tablet Take 50 mg by mouth daily 03/03/2022 added in this encounter Care Teams Business Strategy Manager Relationship Specialty Start Date End Date Wali Pak MD [address] [place] [address] PCP - General 03/26/20 documented as of this encounter
--- OUTSIDE RECORDS SUMMARY | 2024-10-13 16:13 | XMS_ITS | Encounter Summary ---
Author Organization [facility] Address [address] [place] [address] Care Team Providers Care Conservation Of Resources Commissioner Name Role Phone Wali Pak MD Primary Care Provider +1- [phone] Reason for Referral * Sleep Medicine (Routine) - Closed Specialty Diagnoses / Procedures Referred By Darío alston Referred To Contact Diagnoses JERAMY (obstructive sleep apnea) Procedures PSG Violeta Dash MD Phone: tel: [address] [phone] Referral ID Status Reason Start Date Expiration Date Visits Re quested Visits Authorized [id number] Closed 11/01/2020 12/01/2021 1 1 ER HAND Reason for Visit * Sleep Medicine (Routine) - Closed Specialty Diagnoses / Procedures Referred By Darío alston Referred To Contact Diagnoses JERAMY (obstructive sleep apnea) Procedures PSG Violeta Dash MD Phone: tel: [address] [phone] Referral ID Status Reason Start Date Expiration Date Visits Re quested Visits Authorized [id number] Closed 11/01/2020 12/01/2021 1 1 Encounter Details Date Type Department Care Team (Latest Contact Info) Description 11/14/2020 6:26 PM TIMBER HAND - 11/14/2020 11:59 PM TIMBER HAND Hospital Encounter [facility] [address] [place] [address] Violeta Dash MD [address] [place] [address] JERAMY (obstructive sleep apnea) Discharge Disposition: Discharge [...] on file Legal Sex Female 1:15 AM TIMBER HAND Gender Identity Not on file Sexual Orientation [...] or self care documented in this encounter Progress Notes * Violeta Dash MD - 11/14/2020 7:00 PM CST Baseline Polysomnogram History: Mervat Haro is a 55 y.o. female who presents for baseline polysomnogram. Reason for sleep study: Snoring, witnessed apneas, atrial flutter Past medical history: Atrial flutter, history of SVT, diastolic congestive heart failure Medications: Bupropion, xbthfsvihe-euvbwhogrlejb-lnrehvcc, Eliquis, furosemide, lorazepam, metoprolol XL Lenore sleepiness score: 9 BMI: 38.35 Procedure: This overnight diagnostic baseline polysomnogram was performed with the cat scan technologist in attendance. Patient is studied with multiple channel polysomnography to include EEG, sleep stage recording, cardio-respiratory monitoring, monitoring for limb movements as well as videotaping. Central, fron dimitris, occipital and temporal EEG, bilateral EOG, submental EMG, oral and nasal airflow, thoracoabdominal motion, bilateral anterior tibialis EMG, one lead EKG, snore sensor, pulse oximetry and transcutaneous CO2 were monitored. Sleep stages, periodic limb movements, EEG arousals and respiratory events were scored according to the criteria from The [place] [employer] (AASM) Manual for the scoring of sleep and associated events - version 2.6. Findings: Baseline parameters: Baseline heart rate =63/m , Respiratory rate=16/m, Oxygen saturation =96% Sleep architecture: Polysomnogram revealed total recording time of 415.0 minutes and total sleep time of 246.5 minutes with sleep efficiency of 59.4%. Sleep onset latency was 7.2min, and REM latency 131.5min. N1 7.1%, N2 52.1%, N3 22.9% and REM 17.8% accounted for the total sleep time. EEG profile: EEG was reviewed. Snoring profile: The patient had mild snoring. Snoring was not associated with arousals. Respiratory analysis: A total of 0 obstructive apneas, 0 mixed apneas, 0 central apneas and 23 hypopneas were seen with AHI of 5.6 per hour. In addition, 8 Respiratory Effort Related Arousals (RERAs)were seen with AHI+RERA index or respiratory disturbance index (RDI) of 7.5. Respiratory events occurred more in supine than non-supine position and during REM sleep. Supine AHI of 15.0 and supine RDI of 18.0. REM AHI was 27.3 and REM RDI was 30.0. Supine REM AHI was 34.0 and supine REM RDI was 38.0. Baseline TcCO2 was 39 mmHg and the maximum TcCO2 was 49 mmHg during the study. TcCO2 artifacts wereseen during the study. Oximetry data: Lowest oxygen saturation was 86%. The patient had an O2 saturation <= 88% for 3.2min. Lowest oxygen saturation was associated with a respiratory event. Limb movement profile: A total of 8 periodic limb movements were noted, of which 4 movements were associated with arousal. Total movement index was 1.9 per hour and movement with arousal index was 1.0 per hour. Parasomnia profile: No abnormal behavior to suggest parasomnia was noted. EKG analysis: revealed isolated PACs. Interpretation and Recommendations: This is an abnormal polysomnogram due to the presence of: 1. Obstructive sleep apnea with Respiratory Disturbance Index of 7.5 and AHI of 5.6. Respiratory events occurred more in supine than non-supine position and during REM sleep. Supine AHI of 15.0 and supine RDI of 18.0. REM AHI was 27.3 and REM RDI was 30.0. Supine REM AHI was 34.0 and supine REM RDIwas 38.0. Multiple factors can be contributory such as obesity, thyroid disease, and structural/obstructive abnormalities in the upper airway. An evaluation and management of these factors associatedwith sleep apnea would be beneficial. 1. Due to the patient???s comorbidities like atrial flutter and increase severity in supine position and during REM sleep, the patient will benefit from treatment of obstructive sleep apnea with Positive Airway Pressure (PAP) devices such as continuous PAP (CPAP), auto-adjusting PAP (APAP), and bi-level PAP (Bi- PAP). Consider CPAP titration study to determine the optimal pressure required to alleviate sleep disordered breathing. 2. Hypnotics, sedatives, and related medications have the potential of worsening the apnea and should be avoided. 3. Patients with sleep apnea may have significant daytime hypersomnolence. If that is the case, driving or handling heavy machinery should be avoided until the apnea and excessive sleepiness have resolved. 4. Weight loss for ideal body weight range is recommended. 5. EKG analysis revealed isolated PACs. Clinical correlation is recommended. 6. Short sleep latency is suggestive of excessive sleepiness. Patient???s sleep onset latency was 7.2 minutes and this could be due to patient???s untreated sleep apnea. Please reevaluate patient clinically after compliant use of CPAP therapy. 7. Reduced sleep efficiency: Patient has reduced sleep efficiency of 59.4 %. Factors like, psychiatric illness, insomnia or chronic pain may be contributory as well as poor sleep hygiene and or daytime napping. This could also be due to sleeping in the sleep lab for the first time called ???first night effect?? . Clinical correlation is recommended. Violeta Dash MD [facility] Sleep Medicine ER HAND documented in this encounter Miscellaneous Notes * Addendum Note - Bishnu Doe MD - 11/14/2020 7:00 PM CSTEncounter addended by: Bishnu Doe MD on: 11/16/2020 10:44 AM Actions taken: Result filed ER HAND documented in this encounter Plan of Treatment Not on file documented as of this encounter Procedures Procedure Name Priority Date/Time Associated Diagnosis Comments PSG (SIMPLE) Routine 11/15/2020 JERAMY (obstructive sleep apnea) documented in this encounter Results * PSG (11/15/2020) Impressions Bishnu Doe MD - 11/15/2020 Baseline Polysomnogram ?? History: Mervat Haro is a 55 y.o. female who presents for baseline polysomnogram. Reason for sleep study: ??Snoring, witnessed apneas, atrial flutter Past medical history: Atrial flutter, history of SVT, diastolic congestive heart failure Medications: ??Bupropion, ??umcxezgvku-mjocjgsygqslv-fbywdktw, Eliquis, furosemide, lorazepam, metoprolol XL Lenore sleepiness score: 9 ?? BMI: 38.35 ? Procedure: This overnight ??diagnostic baseline ??polysomnogram was performed with the cat scan technologist in attendance. Patient is studied with [...] scored according to the criteria from The [place] [employer] (AASM) Manual for [...] correlation is recommended. ? Violeta Dash MD [facility] Sleep Medicine ?? Narrative Bishnu Doe MD - 11/15/2020 In lab for review us Violeta Dash MD SLEEP CENTER ORDERABLES Final Re sult documented in this encounter Visit Diagnoses Diagnosis JERAMY (obstructive sleep apnea) Obstructive sleep apnea (adult) (pediatric) documented in this encounter Care Teams Conservation Of Resources Commissioner Relationship Specialty Start Date End Date Wali Pak MD [address] [place] [address] PCP - General 03/26/20 documented as of this encounter
--- OUTSIDE RECORDS SUMMARY | 2024-10-13 16:13 | XMS_ITS | Encounter Summary ---
Author Organization [facility] Address [address] [place] [address] Care Team Providers Care Fabrication Inspector Name Role Phone Wali Pak MD Primary Care Provider +1- [phone] Encounter Details Date Type Department Care Team (Late st Contact Info) Description 11/07/2020 Orders Only [facility] Sleep Medicine at [address] [place] [phone] Violeta Dash MD [address] [place] [address] [address] [place] [address] JERAMY (obstructive sleep apnea) (Primary Dx) Social History Tobacco Use Types [...] on file Legal Sex Female 1:15 AM OPTICAL FABRICATION TECHNICIAN Gender Identity Not on file Sexual Orientation Not on file documented as of this encounter Plan of Treatment Not on file documented as of this encounter Results * COVID-19 Coronavirus RNA Nasopharyngeal (11/12/2020 3:24 PM OPTICAL FABRICATION TECHNICIAN) COVID-19 RNA Not Detected [facility] [...] COVID-19. Interpretive Data Testing performed by the [facility] Molecular Infectious Disease Laboratory. The Novel Coronavirus Assay (COVID-19) Real Time RT-PCR assay [...] last revised on 2020. Testing performed by: [facility], [address] [place] [address]., [address] Employeed in healthcare? Unknown [facility] ([facility]) Comment:Testing performed by : [address] [address] status? No [facility] ([facility]) Comment:Testing performed by : [address] [address] Group care resident? No [facility] ([facility]) Comment:Testing performed by : [facility], [address] [place] [address], [address] Hospitalized? No [facility] ([facility]) Comment:Testing performed by : [facility], [address] [place] [address] [place]., [address] Is patient in ICU? No PENG WR[facility] (SHELBY) Comment:Testing performed by : [facility], [address] [facility], [address] Symptomatic as defined by CDC? No PENG WRIGHT (SHELBY) Comment:Testing performed by : [facility], [address] [facility], [address] Nasopharyngeal 11/12/2020 3: 24 PM OPTICAL FABRICATION TECHNICIAN 11/12/2020 11:03 PM OPTICAL FABRICATION TECHNICIAN Narrative [facility] (CARLOCK) - 11/13/2020 11:26 AM OPTICAL FABRICATION TECHNICIAN Screening must be completed prior to sleep study What is the reason for testing?->Screening prior to scheduled procedure or surgery Violeta Dash MD LAB MICROBIOLOGY - GENERAL ORDER ARJUN Final Result [facility] (CARLOCK) [address] [facility] Department [place] [address] documented in this encounter Visit Diagnoses Diagnosis JERAMY (obstructive sleep apnea)- Primary Obstructive sleep apnea (adult) (pediatric) JERAMY (obstructive sleep apnea) Obstructive sleep apnea (adult) (pediatric) documented in this encounter Care Teams Fabrication Inspector Relationship Specialty Start Date End Date Wali Pak MD [address] [place] [address] PCP - General 03/26/20 documented as of this encounter
--- OUTSIDE RECORDS SUMMARY | 2024-10-13 16:13 | XMS_ITS | Encounter Summary ---
Author Organization [facility] Address [address] [place] [address] Care Team Providers Care Triple Drum Operator Name Role Phone Wali Pak MD Primary Care Provider [phone]- [phone] Reason for Visit * Reason Comments PT Initial Eval * Consultation (Routine) - Closed Specialty Diagnoses / Procedures Referred By Contac t Referred To Contact Physical Therapy Diagnoses Arthritis of right knee Caro Disla MD Phone: tel: fax: [address] [phone] Referral ID Status Reason Start Date Expiration Date V isits Requested Visits Authorized [id number] Closed Specialty Services Required 12/02/2022 01/01/2024 24 24 Encounter Details Date Type Department Care Team (Late st Contact Info) Description 12/15/2022 7:45 AM SCALE MECHANIC Therapy [facility] Physical Therapy - Mari Ortizhalto [facility] Smitha Leon, GILBERTO Arthritis of right knee [...] on file Legal Sex Female 1:15 AM SCALE MECHANIC Gender Identity Not on file Sexual Orientation Not on file documented as of this encounter Progress Notes * Smitha Leon, PT - 12/15/2022 7:45 AM CST Physical Therapy Initial Evaluation Mervat Haro 1965 57 y.o. female Caro Disla MD [address] [facility] [address] [place] [address] ICD-9-CM ICD-10-CM 1. Arthritis of right knee 716.96 M17.11 Ambulatory referral order to Physical Therapy - PT Initial Eval Subjective History of Present Illness: Mervat presents to PT evaluation with complaints of knee pain, R>L.She reports she has been having pain in the knee that has gotten progressively worse over the last few months, with no specific injury. 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 She reports that after a few days in a row of standing, her knee begins to swell, become painful and give out. She reports her pain was so bad earlier in the month that she went to the ED on 11/30. She was prescribed a muscle relaxer and higher dose ibuprofen that provided minimal relief, but she reports rest and ice seem to help the most. She did have x-rays performed that demonstrated moderate degenerative arthritis as well as osteophytes. She has seen orthopedics. Current Symptoms: She reports her pain is intermittent. She does have L knee pain as well, but reports her R knee is her primary issue. She reports her symptoms are increased with activity and are worse at the end of the day. She complains of pain in the medial aspect of her R knee. She denies any clicking or popping and states that it feels that it may give out at times. 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 She enjoys being active and is often on herfeet for long periods throughout the day. She is trying to watch her weight and be more active. Current Functional Level: She has difficulty tolerating prolonged activity and being on her feet. She reports she often has difficulty getting out of her car at the end of a work day. Patient Goals: Reduce pain. Increase activity. Objective Gait: genu valgus present bilaterally AROM: L knee 10-110 degrees R knee 5-107 degrees Manual Muscle Testing: Left Right Hip Flexion 4/5 4/5 Hip Extension 4-/5 4-/5 Hip External Rotation 4/5 4/5 Hip Internal Rotation 4/5 4/5 Hip Abduction 4-/5 4-/5 Hip Adduction 4-/5 4-/5 Knee Extension 4/5 4/5 Knee Flexion 4/5 4/5 Ankle DF 5/5 5/5 Ankle PF 5/5 5/5 Girth: 50.5 cm L knee 49 cm R knee Patellofemoral Mobility: hypomobile throughout Palpation: tenderness to L posterior knee, R medial knee and distal patella LEFS: 45/80 Treatment Provided: Recumbent stepper x 6 min HEP: Quad sets Heel slides SLR Sidelying hip abduction Prone hip extension Assessment/Plan Assessment Impairments: impaired physical strength, pain with function, endurance, activity tolerance, flexibility, abnormal or restricted ROM, edema, lacks appropriate home exercise program, decreased mobility Assessment details: Mervat is a 57 year old female that presents to PT evaluation with complaints of B knee pain, R>L. Her pain has progressed in recent months and x-rays have revealed moderate degenerative changes in the knee as well as osteophyes. 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 She demonstrates decreased ROM throughout her knees with both flexion and extension, weakness of the quadriceps and hip musculature and pain with WB activity. She is motivated to improve her activity levels and reduce her pain. Prognosis: good Prognosis details: She is motivated to improve her symptoms. Goals STG 1:: Patient will be independent and compliant with HEP in order to promote optimal PT outcomes. STG 2:: Patient will improve B knee flexion >115 degrees. STG 3:: Patient will improve B knee extension to 0 degrees. LTG 1:: Patient will improve LEFS to >60/80 in order to restore PLOF. LTG 2:: Patient will improve B LE strength to 4+/5 throughout in order to improve her ability to perform transitional movements. LTG 3:: Patient will improve knee pain levels to <3/10 maximally with all activities in order toimprove prolonged standing and walking activities. Plan Start time: 749 End time: 833 Therapy options: will be seen for skilled therapy services Planned modality interventions: thermotherapy (hydrocollator packs), cryotherapy, ultrasound Planned therapy interventions: abdominal trunk stabilization, home exercise program, neuromuscular re-education, strengthening, stretching, manual therapy, Kinesiotaping, functional ROM exercises, gait training, soft tissue mobilization, balance/weight-bearing training, endurance training Frequency: 2 x/week Duration in weeks: 6 weeks Discussed with: patient Future Treatment Plan: Modalities and CP/MHP as needed Progress mat activities, seated activities Stability: rockerboard, foam, etc Standing exercises Resistance machines Stepper Smitha Leon PT, DPT E MECHANIC documented in this encounter Plan of Treatment Not on file documented as of this encounter Visit Diagnoses Diagnosis Arthritis of right knee- Primary documented in this encounter Orders Outpatient Referral Count Last Ordered Date st Ordered Date AMB REFERRAL ORDER TO PHYSICAL THERAPY 1 documented in this encounter Care Teams Triple Drum Operator Relationship Specialty Start Date End Date Wali Pak MD [address] [place] [address] PCP - General 03/26/20 documented as of this encounter
--- OUTSIDE RECORDS SUMMARY | 2024-10-13 16:14 | XMS_ITS | Encounter Summary ---
Author Organization [facility] Address [address] [place] [address] Care Team Providers Care Auto Clocks Repairer Name Role Phone Wali Pak MD Primary Care Provider +1- [phone] Arben Pak MD Primary Care Provider +1- [phone] Arben Pak MD Primary Care Provider +1 [phone] Encounter Details Date Type Department Care Team (Late st Contact Info) Description 01/11/2017 Orders Only [facility] [phone] Wali Pak MD [address] [place] [address] Social History Tobacco Use Types Packs/Day Years Used Date Smoking Tobacco: Never Alcohol Use Standard Drinks/Week Comments Yes 0 (1 standard drink = 0.6 oz pur e alcohol) Comments Unknown Sex and Gender Information Value Date Recorded Sex Assigned at Not on file Legal Sex Female 1:15 AM PHYSICIAN INDUSTRIAL Gender Identity Not on file Sexual Orientation Not on file documented as of this encounter Plan of Treatment Not on file documented as of this encounter Procedures Procedure Name Priority Date/Time Associated Diagnosis Comments T4, FREE New Adm-Reg 01/11/2017 4:10 PM CDT documented in this encounter Results * T4, free (01/11/2017 4:10 PM CDT) Free T4 1.1 0.8 - 1.8 ng/dL [facility] ([facility]) Blood specimen (specimen) 01/11/2017 4:10 PM CDT 01/11/2017 5:13 PM CDT us Wali Pak MD LAB BLOOD ORDERABLES Final Result PENG ADRIANA (SHELBY) 1 [facility] Department [place] [address] documented in this encounter Visit Diagnoses Not on filedocumented in this encounter Care Teams Auto Clocks Repairer Relationship Specialty Start Date End Date Wali Pak MD [address] [place] [address] PCP - General 01/22/17 02/15/17 Arben Pak MD [address] [place] [address] PCP - General 12/07/16 01/21/17 Arben Pak MD [address] [place] [address] PCP - General 02/16/17 03/06/20 documented as of this encounter
--- OUTSIDE RECORDS SUMMARY | 2024-10-13 16:14 | XMS_ITS | Encounter Summary ---
Author Organization [facility] Address [address] [place] [address] Care Team Providers Care Rail Setter Name Role Phone Arben Pak MD Primary Care Provider Encounter Details Date Type Department Care Team (Late st Contact Info) Description 03/13/2020 Telephone [place] Adult Secondary Education Instructor [address] [facility] [address] [place] [phone] Savita Scales MA Social History Tobacco Use Types Packs/Day [...] on file Legal Sex Female 1:15 AM SKI MAKER WOOD Gender Identity Not on file Sexual Orientation Not on file documented as of this encounter Miscellaneous Notes * Telephone Encounter - Savita Scales MA - 03/13/2020 10:58 AM CDT Pt is inquiring about the results of her most recent stress test. documented in this encounter Plan of Treatment Not on file documented as of this encounter Visit Diagnoses Not on filedocumented in this encounter Care Teams Rail Setter Relationship Specialty Start Date End Date Arben Pak MD [address] [place] [address] PCP - General 03/07/20 03/25/20 documented as of this encounter
--- OUTSIDE RECORDS SUMMARY | 2024-10-13 16:14 | XMS_ITS | Encounter Summary ---
Author Organization [facility] Address [address] [address] Care Team Providers Care Supervisor Ski Production Name Role Phone Arben Pak MD Primary Care Provider [phone]- [phone] Encounter Details Date Type Department Care Team (Late st Contact Info) Description 12/16/2017 Orders Only [facility] Orthopedics and Sports Medicine [address] [place] [address] Ferdinand Arellano PA [address] [place] [address] [address] [place] [address] Social History Tobacco Use Types Packs/Day Years Used Date Smoking Tobacco: Never Smokeless Tobacco: Never Alcohol Use Standard Drinks/Week Comments Yes 0 (1 standard drink = 0.6 oz pur e alcohol) Comments Unknown Sex and Gender Information Value Date Recorded Sex Assigned at Not on file Legal Sex Female 1:15 AM TOGGLE PRESS OPERATOR Gender Identity Not on file Sexual Orientation Not on file documented as of this encounter Ordered Prescriptions Prescription Sig Dispense Quantity Refills Last Filled Start Date End Date ascorbic acid (VITAMIN C) 500 mg tablet,chewable Take 1 tablet by mouth 2 times daily until finished 60 tablet/chew tab 12/16/2017 8 HYDROcodone-acetam inophen (NORCO) 5-325 mg per tabletIndications: Pain Take 1-2 tablets by mouth every 4-6 hours as needed for pain 3 tablet 12/16/2017 8 documented in this encounter Plan of Treatment Not on file documented as of this encounter Visit Diagnoses Not on filedocumented in this encounter Care Teams Supervisor Ski Production Relationship Specialty Start Date End Date Arben Pak MD [address] [place] [address] PCP - General 02/16/17 03/06/20 documented as of this encounter
--- OUTSIDE RECORDS SUMMARY | 2024-10-13 16:14 | XMS_ITS | Encounter Summary ---
Author Organization [facility] Address [address] [place] [address] Care Team Providers Care Manager Front Office Name Role Phone Arben Pak MD Primary Care Provider Encounter Details Date Type Department Care Team (Late st Contact Info) Description 01/11/2017 4:03 PM CDT - 01/11/2017 11:59 PM CDT Hospital Encounter [facility] Wali Pak MD [address] [place] [address] Discharge Disposition: Discharge to home or self care Social History Tobacco Use Types Packs/Day Years Used Date Smoking Tobacco: Never Alcohol Use Standard Drinks/Week Comments Yes 0 (1 standard drink = 0.6 oz pur e alcohol) Comments Unknown Sex and Gender Information Value Date Recorded Sex Assigned at Not on file Legal Sex Female 1:15 AM QUALITY TECHNICIAN FIBERGLASS Gender Identity Not on file Sexual Orientation Not on file documented as of this encounter Medications at Time of Discharge meloxicam (MOBIC) 15 mg tablet take 1 tablet by oral route every day with food for 2 weeks then off for 1 week 30 1 09/07/2013 01/07/2018 documented as of this encounter Discharge Disposition Disposition Code Departure Means Destination Discharge to home or self care documented in this encounter Plan of Treatment Not on file documented as of this encounter Visit Diagnoses Not on filedocumented in this encounter Care Teams Manager Front Office Relationship Specialty Start Date End Date Arben Pak MD [address] [place] [address] PCP - General 12/07/16 01/21/17 documented as of this encounter
--- OUTSIDE RECORDS SUMMARY | 2024-10-13 16:14 | XMS_ITS | Encounter Summary ---
Author Organization [facility] Address [address] [facility] [address] [place] [address] Care Team Providers Care Tool And Die Inspector Name Role Phone Arben Pak MD Primary Care Provider [phone] Reason for Referral * Diagnostic Imaging (Routine) - Closed Specialty Diagnoses / Procedures Referred By Contac t Referred To Contact Diagnoses Typical atrial flutter (CMS/HCC) (HCC) Chest pain, unspecified type Procedures NM MPI SPECT (Rest and/or Stress) Multiple Studies Addi Gibbs DO [address] [facility] [address] [place] [place] [address] Phone: tel: fax: [address] [phone] Referral ID Status Reason Start Date Expiration Date Visits Re quested Visits Authorized [id number] Closed 02/28/2020 09/08/2021 1 1 Encounter Details Date Type Department Care Team (Late st Contact Info) Description 02/28/2020 Orders Only [place] Admissions Advisor [address] [phone] Addi Gibbs DO [address] [facility] [address] [place] [address] [place] [id number] Typical atrial flutter (CMS/HCC) (Primary Dx); Chest pain, unspecified type Social History Tobacco Use Types [...] on file 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 Gender Identity Not on file Sexual Orientation Not on file documented as of this encounter Plan of Treatment Not on file documented as of this encounter Results * NM MPI SPECT (Rest and/or Stress) Multiple Studies (03/07/2020 9:10 AM CDT) Anatomical Region Laterality Modality Body N/A Nuclear Medicine 03/07/2020 7:17 AM CDT Narrative 03/07/2020 10:50 AM CDT [address] [place] [address] Lexiscan Report Patient Name: RAMESH RUFF M : 1965 Study Date: 03/07/2020 7:17:39 AM Gender: F Tech: ??Ref.Provider: ADDI GIBBS Height(Cm): ??BSA: Weight(Kg): ??Order Provider: ADDI GIBBS Procedures: Pharmacologic SPECT Report.: Myocardial perfusion imaging with Sestamibi SPECT at rest and post regadenoson (Lexiscan) infusion. Indications: Chest Pain, and Other. Findings: Procedure Data: Sestamibi injected at rest was 10.6 millicuries. Sestamibi injected at peak exercise was 31.2 millicuries. Predicted Maximal HR 164 bpm. Conclusions: 1. Normal myocardial perfusion, breast attenuation artifact. 2. Normal left ventricular performance. Calculated gated EF 63%. Electronically Signed By: Dr Addi Gibbs 2020-03-07 10:50:25 CDT Procedure Note Addi Gibbs, - 03/07/[address] [address] Lexiscan Report Patient Name: RAMESH RUFF M : 1965 Study Date: 03/07/2020 7:17:39 AM Gender: F Tech: Ref.Provider: ADDI GIBBS Height(Cm): BSA: Weight(Kg): Order Provider: ADDI GIBBS Procedures: Pharmacologic SPECT Report.: Myocardial perfusion imaging with Sestamibi SPECT at rest and postregadenoson (Lexiscan) infusion. Indications: Chest Pain, and Other. Findings: Procedure Data: Sestamibi injected at rest was 10.6 millicuries. Sestamibi injected atpeak exercise was 31.2 millicuries. Predicted Maximal HR 164 bpm. Conclusions: 1. Normal myocardial perfusion, breast attenuation artifact. 2. Normal left ventricular performance. Calculated gated EF 63%. Electronically Signed By: Dr Addi Gibbs 2020-03-07 10:50:25 CDT Addi Gibbs DO IMG NM PROCEDURES Final Res ult documented in this encounter Visit Diagnoses Diagnosis Typical atrial flutter (CMS/HCC) (HCC)- Primary Chest pain, unspecified type Typical atrial flutter (CMS/HCC) (HCC) Chest pain, unspecified type documented in this encounter Care Teams Tool And Die Inspector Relationship Specialty Start Date End Date Arben Pak MD [address] [place] [address] PCP - General 02/16/17 03/06/20 documented as of this encounter
--- OUTSIDE RECORDS SUMMARY | 2024-10-13 16:14 | XMS_ITS | Encounter Summary ---
Author Organization [facility] Address [address] [place] [address] Care Team Providers Care Sales Training Manager Name Role Phone Arben Pak MD Primary Care Provider [phone] Reason for Visit * Diagnostic Imaging (Routine) - Closed Specialty Diagnoses / Procedures Referred By Contac t Referred To Contact Diagnoses Typical atrial flutter (CMS/HCC) (HCC) Chest pain, unspecified type Procedures NM MPI SPECT (Rest and/or Stress) Multiple Studies Vel Camacho DO [address] [facility] [address] [place] [address] [place] [address] Phone: tel: fax: [address] [phone] Referral ID Status Reason Start Date Expiration Date Visits Re quested Visits Authorized [id number] Closed 02/28/2020 09/08/2021 1 1 Encounter Details Date Type Department Care Team (Latest Contact Info) Description 03/07/2020 7:00 AM CDT - 03/07/2020 11:59 PM CDT Hospital Encounter [facility] Cardiology [address] [place] [phone] Vel Camacho DO [address] 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 Gender Identity Not on file Sexual Orientation Not on file documented as of this encounter Medications at Time of Discharge buPROPion (WELLBUTRIN) 100 mg tablet Take 1 tablet (100 mg total) by mouth daily 12/28/2019 LORazepam (ATIVAN) 0.5 mg tablet Take 1 tablet (0.5 mg total) by mouth as needed 02/05/2020 apixaban (ELIQUIS) 5 mg tabletIndications: atrial fibrillation Take 1 tablet (5 mg total) by mouth every 12 (twelve) hours 60 tablet 2 01/22/2020 04/29/2020 furosemide (LASIX) 20 mg tablet Take 1 tablet (20 mg total) by mouth as needed 02/05/2020 09/14/2024 metoprolol XL (TOPROL-XL) 50 mg extended release tablet Take 1 tablet (50 mg total) by mouth daily 30 tablet 2 01/22/2020 09/27/2020 documented as of this encounter Discharge Disposition Disposition Code Departure Means Destination Discharge to home or self care documented in this encounter Plan of Treatment Not on file documented as of this encounter Procedures Procedure Name Priority Date/Time Associated Diagnosis Comments STRESS TEST FOR DUAL READ Schedule JUDY, Read Routine (Patient lives out of area) 03/07/2020 9:10 AM CDT Typical atrial flutter (CMS/HCC) Chest pain, unspecified type NM MPI SPECT (REST AND/OR STRESS) MULTIPLE STUDIES Schedule JUDY, Read Routine (Patient lives out of area) 03/07/2020 9:10 AM CDT Typical atrial flutter (CMS/HCC) Chest pain, unspecified type documented in this encounter Visit Diagnoses Not on filedocumented in this encounter Administered Medications Inactive Administered Medications - up to 3 most recent administrations Medication Order MAR Action Action Date Dose Rate Site regadenoson (LEXISCAN) 0.4 mg/5 mL injection 0.4 mg 0.4 mg, intravenous, Once, On Opal 03/07/20 at 0900, For 1 dose, Intra-Procedure (CV), Administer IV push over 10 seconds., Indications: Myocardial Perfusion Imaging AdjunctIndications:Myocardial Perfusion Imaging Adjunct Given 03/07/2020 8:22 AM CDT 0.4 mg documented in this encounter Orders Medications Ordered That Chace ht Not Have Been Administered Count Last Ordered Date First Ordered Date regadenoson (LEXISCAN) 0.4 m g/5 mL injection 0.4 mg 1 03/07/2020 documented in this encounter Care Teams Sales Training Manager Relationship Specialty Start Date End Date Arben Pak MD [address] [place] [address] PCP - General 03/07/20 03/25/20 documented as of this encounter
--- OUTSIDE RECORDS SUMMARY | 2024-10-13 16:14 | XMS_ITS | Encounter Summary ---
Author Organization [facility] Address [address] [address] Care Team Providers Care Integration Consultant Name Role Phone Arben Pak MD Primary Care Provider [phone] Reason for Visit * Reason Comments Pain Encounter Details Date Type Department Care Team (Late st Contact Info) Description 09/30/2017 1:45 PM TIRE WRAPPER Office Visit [facility] Orthopedics and Sports Medicine [address] [place] [phone] Nasir Aguayo II, PA [address] [place] [address] [address] [place] [address] Right hand pain (Primary Dx); Trigger ring finger of right hand Social History Tobacco Use Types Packs/Day Years Used Date Smoking Tobacco: Never Smokeless Tobacco: Never Alcohol Use Standard Drinks/Week Comments Yes 0 (1 standard drink = 0.6 oz pur e alcohol) Comments Unknown Sex and Gender Information Value Date Recorded Sex Assigned at Not on file 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 Gender Identity Not on file Sexual Orientation Not on file documented as of this encounter Last Filed Vital Signs Vital Sign Reading Time Taken Comments Blood Pressure 147/76 09/30/2017 1:47 PM TIRE WRAPPER Pulse 86 09/30/2017 1:47 PM TIRE WRAPPER Temperature - - Respiratory Rate - - Oxygen Saturation - - Inhaled Oxygen Concentration - - Weight 99.3 kg (219 lb) 09/30/2017 1:47 PM TIRE WRAPPER Height 167.6 cm (5' 6 ) 09/30/2017 1:47 PM TIRE WRAPPER Body Mass Index 35.35 09/30/2017 1:47 PM TIRE WRAPPER documented in this encounter Progress Notes * Nasir Aguayo PA - 09/30/2017 1:45 PM CST Images from the original note were not included. FOLLOW UP VISIT Subjective CHIEF COMPLAINT She had concerns including Pain of the Right Hand. HISTORY OF PRESENT ILLNESS Mrs. Haro presents to the office for examination of her right hand. She has developed triggering of her right ring finger without locking. Pain Assessment Pain Assessment: No/denies pain Pain Score: 5 - Moderate pain Pain Location: Hand Pain Orientation: Right Pain Descriptors: Aching Pain Frequency: Constant/continuous Pain Onset: Ongoing Clinical Progression: Gradually worsening Aggravating Factors: Straightening, Bending Result of Injury: No Work-Related Injury: No Patient's Stated Pain Goal: No pain Pain Interventions: Medication (See MAR) MEDICATIONS She has a current medication list which includes the following prescription(s): clarithromycin, famotidine, levothyroxine, meloxicam, and prednisone. REVIEW OF SYSTEMS Review of Systems Constitutional: Negative for activity change, appetite change, chills and fever. HENT: Negative for congestion, dental problem, ear pain, hearing loss and voice change. Eyes: Negative for pain and visual disturbance. Respiratory: Negative for apnea, cough, chest tightness and shortness of breath. Cardiovascular: Negative for chest pain, palpitations and leg swelling. Gastrointestinal: Negative for blood in stool, constipation, diarrhea, nausea and vomiting. Endocrine: Negative for cold intolerance and heat intolerance. Genitourinary: Negative for difficulty urinating and hematuria. Skin: Negative for color change, rash and wound. Allergic/Immunologic: Negative for environmental allergies. Neurological: Negative for dizziness, syncope, numbness and headaches. Hematological: Negative for adenopathy. Does not bruise/bleed easily. Psychiatric/Behavioral: Negative for confusion. The patient is not nervous/anxious and is not hyperactive. Objective PHYSICAL EXAM BP 147/76 (BP Location: Right arm, Patient Position: Sitting) Pulse 86 Ht 167.6 cm (5' 6 ) Wt99.3 kg (219 lb) BMI 35.35 kg/m?? Right hand/wrist Inspection Erythema: absent Edema: absent Skin temperature: normal Surgical scar/wound: present (A1 norman area middle finger). The surgical scar/wound is healed. Visible mass: absent. Palpation Tenderness: present (A1 norman ring finger). The tenderness is located in the chiu area. Range of motion The patient has normal range of motion of the right wrist. Th patient has normal range of motion of the fingers on the right hand. Strength The patient has 5/5 strength throughout the right hand and wrist. Neurovascular Radial pulse: 2+ The patient has normal sensation on the right side of their body. Test Trigger: positive REVIEW OF X-RAYS/STUDIES/LABS XR Hand Right 3 or More Views Interpretation of x-rays: Three views of the right hand taken today in the office demonstrate, in my opinion, no acute bony abnormality, fracture or dislocation. Assessment/Plan Mervat was seen today for pain. Diagnoses and all orders for this visit: Right hand pain - XR Hand Right 3 or More Views Trigger ring finger of right hand PLAN Treatment options were discussed with Mrs. Haro to include corticosteroid injection of the tendonsheath right ring finger. Injection was offered and declined. Mervat has elected to proceed with surgical release and will follow up with Dr. Marmolejo for his surgical evaluation. Mrs. Haro is encouraged to call the office anytime she has any problems or concerns during the interim. BHAVANI Palma PA Cosigned by Duran Marmolejo MD at 10/10/2017 8:41 PM TIRE WRAPPER WRAPPER WRAPPER documented in this encounter Plan of Treatment Not on file documented as of this encounter Procedures Procedure Name Priority Date/Time Associated Diagnosis Comments XR HAND RIGHT 3 OR MORE VIEWS Schedule Routine, Read Routine (OP Routine) 09/30/2017 1:47 PM TIRE WRAPPER Right hand pain documented in this encounter Results * XR Hand Right 3 or More Views (09/30/2017 1:47 PM TIRE WRAPPER) Anatomical Region Laterality Modality Upper Extremities, Hand [facility] Narrative 10/09/2017 8:49 PM TIRE WRAPPER Interpretation of x-rays: ??Three views of the right hand taken today in the office demonstrate, in my opinion, no acute bony abnormality, fracture or dislocation. JESIKA Eng II IMG XR PROCEDURES Final Result documented in this encounter Visit Diagnoses Diagnosis Right hand pain- Primary Pain in soft tissues of limb Trigger ring finger of right hand documented in this encounter Historical Medications * This list may reflect changes made after this encounter. predniSONE (DELTASONE) 10 mg tablet 07/02/2017 01/07/2018 levothyroxine (SYNTHROID) 100 mcg tablet Take by mouth. 01/07/2018 famotidine (PEPCID) 40 mg tablet 07/02/2017 01/07/2018 clarithromycin (BIAXIN) 500 mg tablet 06/27/2017 01/07/2018 added in this encounter Care Teams Integration Consultant Relationship Specialty Start Date End Date Arben Pak MD [address] [place] [address] PCP - General 02/16/17 03/06/20 documented as of this encounter
--- OUTSIDE RECORDS SUMMARY | 2024-10-13 16:14 | XMS_ITS | Encounter Summary ---
Author Organization [facility] Address [address] [place] [address] Care Team Providers Care Boarding Kennel Or Cattery Operator Name Role Phone Wali Pak MD Primary Care Provider [phone] Arben Pak MD Primary Care Provider [phone] Encounter Details Date Type Department Care Team (Latest Contact Info) Description 12/24/2016 4:07 PM BUTTONHOLE MARKER - 02/03/2017 11:59 PM CDT Hospital Encounter [facility] Janee Zhu MD [address] [place] [address] Discharge Disposition: Discharge to home or self care Social History Tobacco Use Types Packs/Day Years Used Date Smoking Tobacco: Never Alcohol Use Standard Drinks/Week Comments Yes 0 (1 standard drink = 0.6 oz pur e alcohol) Comments Unknown Sex and Gender Information Value Date Recorded Sex Assigned at Not on file 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
--- OUTSIDE RECORDS SUMMARY | 2024-10-13 16:14 | XMS_ITS | Encounter Summary ---
Author Organization [facility] Address [address] [facility] [address] [place] [address] Care Team Providers Care School Bus Mechanic Name Role Phone Arben Pak MD Primary Care Provider [phone] Reason for Visit * Reason Comments New Patient SVT Encounter Details Date Type Department Care Team (Late st Contact Info) Description 02/07/2020 10:30 AM CDT Office Visit [place] Shingle Trimmer 2 [facility] [address] [place] [phone] Vel Camacho, DO 2 [facility] [address] [place] [address] Typical atrial flutter (CMS/HCC) (Primary Dx); Current use of long-term anticoagulation; Diastolic CHF, acute (CMS/HCC) Social History [...] on file 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 Gender Identity Not on file Sexual Orientation Not on file documented as of this encounter Last Filed Vital Signs Vital Sign Reading Time Taken Comments Blood Pressure 119/71 02/07/2020 10:28 AM CDT Pulse 66 02/07/2020 10:28 AM CDT Temperature - - Respiratory Rate 18 02/07/2020 10:28 AM CDT Oxygen Saturation - - Inhaled Oxygen Concentration - - Weight 103 kg (227 lb) 02/07/2020 10:28 AM CDT Height 167.6 cm (5' 6 ) 02/07/2020 10:28 AM CDT Body Mass Index 36.64 02/07/2020 10:28 AM CDT documented in this encounter Progress Notes * Vel Camacho, - 02/07/2020 10:30 AM CDT Images from the original note were not included. Cardiology note Reason for Office Visit: Chief Complaint Patient presents with ??? New Patient ??? SVT History of Present Illness: Mervat Haro is [...] of palpitations without evidence for any compromise. Review of Systems: Review of Systems Constitution: [...] Last attempt to quit: 12/24/2018 Years since quittin.1 ??? Smokeless tobacco: [...] for this visit. Vital Signs: Vitals BP 119/71 (BP Location: Left arm, Patient Position: Sitting) Pulse 66 Resp 18 Ht 167.6 cm (5' 6 ) Wt 103 kg (227 lb) BMI 36.64 kg/m?? Vitals: 02/07/20 1028 BP: 119/71 Pulse: 66 Resp: 18 Wt Readings from Last 3 Encounters: 02/07/20 103 kg (227 lb) 12/25/19 101.7 kg (224 lb 3.3 oz) 02/08/18 100.2 kg (221 lb) Body mass index is 36.64 kg/m??. Physical Exam: Physical Exam Constitutional: She [...] 12/25/2019 Lab Results Component Value Date TSH 2.20 01/11/2017 FREET4 1.1 01/11/2017 Lab Results Component Value Date AST 17 [...] this visit: Typical atrial flutter (CMS/HCC) (Primary) Patient has had no evidence for any persistent recurrence of her atrial flutter. We discussed continuing her current regimen until we have some history of what course this might take in the short term. Current use of long-term anticoagulation A plan to continue anticoagulation for now but if she has no significant recurrence or need for alteration to medical therapy within the next 3 months we will likely discontinue it at follow-up. Diastolic CHF, acute (CMS/HCC) Patient's diastolic CHF identified in the hospital was likely consequence of her persistent rapid atrial flutter and has subsequently resolved on follow-up. Return in about 3 months (around 05/08/2020). 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 LORazepam (ATIVAN) 0.5 mg tablet Take 1 tablet (0.5 mg total) by mouth as needed 02/05/2020 buPROPion (WELLBUTRIN) 100 mg tablet Take 1 tablet (100 mg total) by mouth daily 12/28/2019 furosemide (LASIX) 20 mg tablet Take 1 tablet (20 mg total) by mouth as needed 02/05/2020 09/14/2024 added in this encounter Care Teams School Bus Mechanic Relationship Specialty Start Date End Date Arben Pak MD [address] [place] [address] PCP - General 02/16/17 03/06/20 documented as of this encounter
--- OUTSIDE RECORDS SUMMARY | 2024-10-13 16:14 | XMS_ITS | Encounter Summary ---
Author Organization [facility] Medical Group Address [address] [address] Care Team Providers Care Resident Programs Assistant Name Role Phone Arben Pak MD Primary Care Provider +1- [phone] Reason for Visit * Reason Comments Pain Encounter Details Date Type Department Care Team (Late st Contact Info) Description 11/26/2017 1:30 PM MOLD FORMS BUILDER Office Visit 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 FORMS BUILDER Gender Identity Not on file Sexual Orientation Not on file documented as of this encounter Last Filed Vital Signs Vital Sign Reading Time Taken Comments Blood Pressure 142/81 11/26/2017 1:53 PM MOLD FORMS BUILDER Pulse 77 11/26/2017 1:53 PM MOLD FORMS BUILDER Temperature - - Respiratory Rate - - Oxygen Saturation - - Inhaled Oxygen Concentration - - Weight 99.3 kg (219 lb) 11/26/2017 1:53 PM MOLD FORMS BUILDER Height 167.6 cm (5' 6 ) 11/26/2017 1:53 PM MOLD FORMS BUILDER Body Mass Index 35.35 11/26/2017 1:53 PM MOLD FORMS BUILDER documented in this encounter Progress Notes * Duran Marmolejo MD - 11/26/2017 1:30 PM CST FOLLOW UP VISIT Subjective CHIEF COMPLAINT She had concerns including Pain of the Right Hand. HISTORY OF PRESENT ILLNESS Right middle finger triggering for about 2 years recently he has been getting worse not sure what started the problem the pain is sharp burning and aching he catches and has severe pain at times ice makes it better using hand been elbow makes it worse she has night pain activity pain and predictably good happen when she makes a fist this did not start work it is not work comp and she is not miss work because the problem Pain Assessment Pain Assessment: 0-10 Pain Score: 3 Pain Location: Hand Pain Orientation: Right Pain Descriptors: Burning, Aching, Sharp Pain Frequency: Intermittent Pain Onset: Ongoing Clinical Progression: Gradually worsening Aggravating Factors: Bending, Stretching Result of Injury: No Work-Related Injury: No [...] is not hyperactive. Objective PHYSICAL EXAM BP 142/81 (BP Location: Right arm, Patient Position: Sitting) Pulse 77 Ht 167.6 cm (5' 6 ) Wt99.3 kg (219 lb) BMI 35.35 kg/m?? Right hand/wrist Inspection Erythema: absent Edema: absent Skin temperature: normal Surgical scar/wound: present (A1 norman area middle finger). The surgical scar/wound is healed. Visible mass: absent. Palpation Tenderness: present (A1 norman ring finger). The tenderness is located in the chiu area and long. Range of motion The patient has normal range of motion of the right wrist. Th patient has normal range of motion of the fingers on the right hand. Strength The patient has 5/5 strength throughout the right hand and wrist. Neurovascular Radial pulse: 2+ The patient has normal sensation on the right side of their body. Test Trigger: positive Comments: Tender to palpation A1 norman ring finger right upper extremity .....abduction of small finger asymptomatic Left hand/wrist The patient has normal inspection, palpation, range of motion, strength, and stability of the left hand and wrist. REVIEW OF X-RAYS/STUDIES/LABS Assessment/Plan Mervat was seen today for pain. Diagnoses and all orders for this visit: Trigger middle finger of right hand Procedures PLAN I discussed the nature of the patient's condition in clinic today. Patient was offered conservativemanagement for Trigger middle right finger. We discussed open A1 norman release. Risks and benefitsof the surgery were discussed with the patient. These include but are not limited to bleeding, infection, damage to surrounding structures including nerves, and vessels, DVT, PE, stroke, heart attack, and . Patient understands these risks and agreed to proceed with the surgery as described above. All questions and concerns were addressed with the patient prior to surgical consent being established in the office today. The patient will follow up for surgery. Duran Marmolejo MD FORMS BUILDER documented in this encounter Plan of Treatment Not on file documented as of this encounter Visit Diagnoses Diagnosis Trigger middle finger of right hand- Primary documented in this encounter Care Teams Resident Programs Assistant Relationship Specialty Start Date End Date Arben Pak MD [address] [place] [address] PCP - General 02/16/17 03/06/20 documented as of this encounter
--- OUTSIDE RECORDS SUMMARY | 2024-10-13 16:14 | XMS_ITS | Encounter Summary ---
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
--- OUTSIDE RECORDS SUMMARY | 2024-10-13 16:14 | XMS_ITS | Encounter Summary ---
Author Organization [facility] Address [address] [place] [address] Care Team Providers Care Graphic Arts Technician Name Role Phone Arben Pak MD Primary Care Provider [phone]- [phone] Encounter Details Date Type Department Care Team (Late st Contact Info) Description 01/01/2017 9:33 AM MEDICAL EQUIPMENT TECHNICIAN - 01/01/2017 11:59 PM MEDICAL EQUIPMENT TECHNICIAN Hospital Encounter [facility] OP INTERIM Wali Pak MD [address] [place] [address] Discharge Disposition: Discharge to home or self care Social History Tobacco Use Types Packs/Day Years Used Date Smoking Tobacco: Never Alcohol Use Standard Drinks/Week Comments Yes 0 (1 standard drink = 0.6 oz pur e alcohol) Comments Unknown Sex and Gender Information Value Date Recorded Sex Assigned at Not on file Legal Sex Female 1:15 AM MEDICAL EQUIPMENT TECHNICIAN Gender Identity Not on file Sexual [...] on filedocumented in this encounter Care Teams Graphic Arts Technician Relationship Specialty Start Date End Date Arben Pak MD [address] [place] [address] PCP - General 12/07/16 01/21/17 documented as of this encounter
--- OUTSIDE RECORDS SUMMARY | 2024-10-13 16:14 | XMS_ITS | Encounter Summary ---
Author Organization [facility] Medical Group Address [address] [facility] [address] [place] [address] Care Team Providers Care Neonatal Pediatric Nurse Name Role Phone Arben Pak MD Primary Care Provider [phone] [phone] Encounter Details Date Type Department Care Team (Late st Contact Info) Description 12/06/2017 Telephone [facility] Orthopedics and Sports Medicine [address] [facility] [address] [place] [address] Duran Marmolejo MD [address] [place] [address] [address] [place] [address] Social History Tobacco Use Types Packs/Day Years Used Date Smoking Tobacco: Never Smokeless Tobacco: Never Alcohol Use Standard Drinks/Week Comments Yes 0 (1 standard drink = 0.6 oz pur e alcohol) Comments Unknown Sex and Gender Information Value Date Recorded Sex Assigned at Not on file 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 [facility] Spoke to Leonora @ [facility] [place] auth#[id number] ING TECH ING TECH documented in this encounter Plan of Treatment Not on file documented as of this encounter Visit Diagnoses Not on filedocumented in this encounter Care Teams Neonatal Pediatric Nurse Relationship Specialty Start Date End Date Arben Pak MD [address] [place] [address] PCP - General 02/16/17 03/06/20 documented as of this encounter
--- OUTSIDE RECORDS SUMMARY | 2024-10-13 16:14 | XMS_ITS | Encounter Summary ---
Author Organization [facility] Medical Group Address [address] 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 Pt confirmed ... Anisa SAMANO * Telephone Encounter - Anisa Carroll MA - 05/10/2020 10:16 AM CDT Confirmed appt 05/24/2020---check in instructions given. Pt ok w/1015a instead of 12p time change ... Anisa SAMANO documented in this encounter Plan of Treatment Not on file documented as of this encounter Visit Diagnoses Not on filedocumented in this encounter Care Teams Assembler Dry Cell And Battery Relationship Specialty Start Date End Date Wali Pak MD [address] [place] [address] PCP - General 03/26/20 documented as of this encounter
--- OUTSIDE RECORDS SUMMARY | 2024-10-13 16:14 | XMS_ITS | Encounter Summary ---
Author Organization [facility] Address [address] [place] [address] Care Team Providers Care Chief Deputy Coroner Name Role Phone Wali Pak MD Primary Care Provider [phone]- [phone] Encounter Details Date Type Department Care Team (Late st Contact Info) Description 10/04/2014 1:33 PM MACHINE SAND MIXER - 10/04/2014 11:59 PM MACHINE SAND MIXER Hospital Encounter [facility] CLINCONV Abnormal mammogram Social History Tobacco Use Types Packs/Day Years Used Date Smoking Tobacco: Never Alcohol Use Standard Drinks/Week Comments Yes 0 (1 standard drink = 0.6 oz pur e alcohol) Comments Unknown Sex and Gender Information Value Date Recorded Sex Assigned at Not on file Legal Sex Female 1:15 AM MACHINE SAND MIXER Gender Identity Not on file Sexual Orientation Not on file documented as of this encounter Medications at Time of Discharge meloxicam (MOBIC) 15 mg tablet take 1 tablet by oral route every day with food for 2 weeks then off for 1 week 30 1 09/07/2013 01/07/2018 documented as of this encounter Plan of Treatment Not on file documented as of this encounter Procedures Procedure Name Priority Date/Time Associated Diagnosis Comments DIGITAL MAMMOGRAPHY Routine 10/04/2014 1 :46 PM MACHINE SAND MIXER documented in this encounter Results * DIGITAL MAMMOGRAPHY (10/04/2014 1:46 PM MACHINE SAND MIXER) Anatomical Region Laterality Modality Breast Mammography 10/04/2014 1:46 PM MACHINE SAND MIXER Narrative 10/09/2014 11:07 AM MACHINE SAND MIXER Diag Mamm - Addl Views R ??Acc#: ??[id number] DATE OF EXAM: ??Oct 04 2014 CLINICAL [...] Diag Mamm - Addl Views R Acc#: [id number] DATE OF EXAM: Oct 04 2014 CLINICAL [...] DR RODO GARCIA Attending DR: RODO GARCIA us Historical Provider MD [facility] MAMMO PROCEDURES Mary l Result documented in this encounter Visit Diagnoses Diagnosis Abnormal mammogram Abnormal mammogram, unspecified documented in this encounter Care Teams Chief Deputy Coroner Relationship Specialty Start Date End Date Wali Pak MD [address] [place] [address] PCP - General 07/18/13 12/06/16 documented as of this encounter
--- OUTSIDE RECORDS SUMMARY | 2024-10-13 16:14 | XMS_ITS | Encounter Summary ---
Author Organization 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 Anisa SAMANO * Telephone Encounter - Vel Camacho DO - 04/17/2020 2:41 PM CDT If blood pressure remains controlled, that should be fine. * Telephone Encounter - Anisa Carroll MA - 04/17/2020 11:48 AM CDT Pt called pcp---she told pcp she was having some throat tightness and he said to cut BP med in 10/26.Pt wants to make sure you are ok w/this change ~ Anisa SAMANO documented in this encounter Plan of Treatment Not on file documented as of this encounter Visit Diagnoses Not on filedocumented in this encounter Care Teams Diamond Die Polisher Relationship Specialty Start Date End Date Wali Pak MD [address] [place] [address] PCP - General 03/26/20 documented as of this encounter
--- OUTSIDE RECORDS SUMMARY | 2024-10-13 16:14 | XMS_ITS | Encounter Summary ---
Author Organization [facility] Medical Group Address [address] [facility] [address] [place] [address] Care Team Providers Care Industrial Manufacturing Technician Name Role Phone Arben Pak MD Primary Care Provider +1- [phone] Encounter Details Date Type Department Care Team (Late st Contact Info) Description 02/28/2020 Telephone [place] Chair Car Attendant 2 [facility] [address] [place] [address] Vel Camacho, 2 [facility] [address] [place] [address] Social History Tobacco Use Types Packs/Day Years [...] file 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 She was recently diagnosed with SVT. Consulted with KAYLEEN, he is not going to change any meds at this time, he wants to order a Venus before seeing her in office again. Placed order for [facility]. Pt notified Advised pt any chest pain, worsening SOB go to ER. documented in this encounter Plan of Treatment Not on file documented as of this encounter Visit Diagnoses Not on filedocumented in this encounter Care Teams Industrial Manufacturing Technician Relationship Specialty Start Date End Date Arben Pak MD [address] [place] [address] PCP - General 02/16/17 03/06/20 documented as of this encounter
--- OUTSIDE RECORDS SUMMARY | 2024-10-13 16:14 | XMS_ITS | Encounter Summary ---
Author Organization [facility] Medical Group Address [address] [address] Care Team Providers Care Functional Tester Typewriters Name Role Phone Arben Pak MD Primary Care Provider +1- [phone] Reason for Visit * Reason Comments Post-op 2 week trigger finge r post op, see per Dr. Marmolejo Post-op Encounter Details Date Type Department Care Team (Late st Contact Info) Description 01/07/2018 8:30 AM CDT Office Visit [facility] Medical Group Orthopedics and Sports Medicine [address] [place] [phone] Duran Marmolejo MD [address] [place] [address] [address]JIA [address] [address] Post-operative state (Primary Dx) Social History Tobacco Use Types Packs/Day Years Used Date Smoking Tobacco: Never Smokeless Tobacco: Never Alcohol Use Standard Drinks/Week Comments Yes 0 (1 standard drink = 0.6 oz pur e alcohol) Comments Unknown Sex and Gender Information Value Date Recorded Sex Assigned at Not on file Legal Sex Female 1:15 AM SUPPORTABILITY ENGINEER Gender Identity Not on file Sexual Orientation Not on file documented as of this encounter Last Filed Vital Signs Vital Sign Reading Time Taken Comments Blood Pressure 144/80 01/07/2018 8:42 AM CDT Pulse 74 01/07/2018 8:42 AM CDT Temperature - - Respiratory Rate - - Oxygen Saturation - - Inhaled Oxygen Concentration - - Weight 100.2 kg (221 lb) 01/07/2018 8:42 AM CDT Height 167.6 cm (5' 6 ) 01/07/2018 8:42 AM CDT Body Mass Index 35.67 01/07/2018 8:42 AM CDT documented in this encounter Progress Notes * Duran Marmolejo MD - 01/07/2018 8:30 AM CDT FOLLOW UP VISIT Subjective CHIEF COMPLAINT She had concerns including Post-op of the Right Hand and Post-op (2 week trigger finger post op, see per Dr. Marmolejo). HISTORY OF PRESENT ILLNESS Patient is 11 days status post trigger finger trigger thumb release doing well without complaints reports she has had no pain postoperatively still complains some mild swelling in her finger Pain Assessment Pain Assessment: No/denies pain MEDICATIONS She currently has no medications in their medication list. REVIEW OF SYSTEMS Review of Systems Constitutional: [...] is not hyperactive. Objective PHYSICAL EXAM BP 144/80 Pulse 74 Ht 167.6 cm (5' 6 ) Wt 100.2 kg (221 lb) BMI 35.67 kg/m?? Ortho Exam Incisions are clean dry intact healing well no redness no warmth no signs infection sutures are in place. Sutures removed today REVIEW OF X-RAYS/STUDIES/LABS Assessment/Plan Mervat was seen today for post-op and post-op. Diagnoses and all orders for this visit: Post-operative state Procedures PLAN Resume normal activities over the next 1-2 weeks follow-up on a p.r.n. basis we apologize for the inconvenience she did come to surgery at 5:00 a.m. and have surgery until 3:00 p.m. her daughter is currently very pleased with her outcome. documented in this encounter Plan of Treatment Not on file documented as of this encounter Visit Diagnoses Diagnosis Post-operative state- Primary Other postprocedural status documented in this encounter Discontinued Medications Medication Sig Discontinue Reason Start Date End Da te ascorbic acid (VITAMIN C) 500 mg tablet,chewable Take 1 tablet by mouth 2 times daily until finished Therapy completed 12/16/2017 01/07/2018 meloxicam (MOBIC) 15 mg tablet take 1 tablet by oral route every day with food for 2 weeks then off for 1 week Therapy completed 09/07/2013 01/07/2018 famotidine (PEPCID) 40 mg tablet Therapy completed 07/02/2017 01/07/2018 predniSONE (DELTASONE) 10 mg tablet Therapy completed 07/02/2017 01/07/2018 clarithromycin (BIAXIN) 500 mg tablet Therapy completed 06/27/2017 01/07/2018 HYDROcodone-acetaminoph en (NORCO) 5-325 mg per tabletIndications:Pain Take 1-2 tablets by mouth every 4-6 hours as needed for pain Therapy completed 12/16/2017 01/07/2018 HYDROcodone-acetaminoph en (NORCO) 5-325 mg per tabletIndications:Pain Take by mouth. Therapy completed 12/27/2017 018 levothyroxine (SYNTHROID) 100 mcg tablet Take by mouth. Therapy completed 01/07/2018 documented as of this encounter Historical Medications * This list may reflect changes made after this encounter. HYDROcodone-aceta minophen (NORCO) 5-325 mg per tabletIndications :Pain Take by mouth. 12/27/2017 01/07/2018 added in this encounter Care Teams Functional Tester Typewriters Relationship Specialty Start Date End Date Arben Pak MD [address] [facility] [place] [address] PCP - General 02/16/17 03/06/20 documented as of this encounter
--- OUTSIDE RECORDS SUMMARY | 2024-10-13 16:14 | XMS_ITS | Encounter Summary ---
Author Organization [facility] Medical Group Address [address] [facility] [address] [place] [address] Care Team Providers Care Web Systems Developer Name Role Phone Arben Pak MD Primary Care Provider Encounter Details Date Type Department Care Team (Late st Contact Info) Description 12/03/2017 Telephone [facility] Orthopedics and Sports Medicine [address] [facility] [address] [place] [address] Duran Marmolejo MD [address] [place] [address] [address] [place] [address] Social History Tobacco Use Types Packs/Day Years Used Date Smoking Tobacco: Never Smokeless Tobacco: Never Alcohol Use Standard Drinks/Week Comments Yes 0 (1 standard drink = 0.6 oz pur e alcohol) Comments Unknown Sex and Gender Information Value Date Recorded Sex Assigned at Not on file Legal Sex Female 1:15 AM DUMPCART DRIVER Gender Identity Not on file Sexual Orientation Not on file documented as of this encounter Miscellaneous Notes * Telephone Encounter - Shannan Michel - 12/07/2017 9:29 AM CST Patient returned call and advised that surgery approved and would be at [facility]. CART DRIVER * Telephone Encounter - Shannan Michel - 12/03/2017 3:31 PM CST Called patient to verify which hospital for sure she is wanting to have surgery on 12-27-17, had to leave message. CART DRIVER documented in this encounter Plan of Treatment Not on file documented as of this encounter Visit Diagnoses Not on filedocumented in this encounter Care Teams Web Systems Developer Relationship Specialty Start Date End Date Arben Pak MD [address] [place] [address] PCP - General 02/16/17 03/06/20 documented as of this encounter
--- OUTSIDE RECORDS SUMMARY | 2024-10-13 16:14 | XMS_ITS | Encounter Summary ---
Author Organization [facility] Healthcare Address [address] [place] [address] Care Team Providers Care Licensed Pesticide Applicator Name Role Phone Arben Pak MD Primary Care Provider [phone] Encounter Details Date Type Department Care Team (Latest Contact Info) Description 12/25/2019 10:37 AM PROCUREMENT COST COORDINATOR - 12/25/2019 11:16 AM PROCUREMENT COST COORDINATOR Hospital Encounter [facility] AMBULANCE BILLING Discharge Disposition: Discharge to home or self [...] on file Legal Sex Female 1:15 AM PROCUREMENT COST COORDINATOR Gender Identity Not on file Sexual Orientation Not on file documented as of this encounter Medications at Time of Discharge apixaban (ELIQUIS) 5 mg tabletIndications: atrial fibrillation Take 1 tablet (5 mg total) by mouth every 12 (twelve) hours 60 tablet 12/26/2019 01/22/2020 meloxicam (MOBIC) 15 mg tabletIndications: Osteoarthritis Take 15 mg by mouth daily as needed for pain 12/26/2019 metoprolol XL (TOPROL-XL) 50 mg 24 hr tablet Take 1 tablet (50 mg total) by mouth daily 30 tablet 12/27/2019 01/22/2020 documented as of this encounter Discharge Disposition Disposition Code Departure Means Destination Discharge to home or self care documented in this encounter Plan of Treatment Not on file documented as of this encounter Visit Diagnoses Not on filedocumented in this encounter Care Teams Licensed Pesticide Applicator Relationship Specialty Start Date End Date Arben Pak MD [address] [place] [address] PCP - General 02/16/17 03/06/20 documented as of this encounter
--- OUTSIDE RECORDS SUMMARY | 2024-10-13 16:14 | XMS_ITS | Encounter Summary ---
Author Organization Formerly [facility] Address [address] [place] [address] Care Team Providers Care Athletic Turf Worker Name Role Phone Arben Pak MD Primary Care Provider [phone] Reason for Referral * Diagnostic Imaging (Routine) - Closed Specialty Diagnoses / Procedures Referred By Contac t Referred To Contact Diagnoses Typical atrial flutter (CMS/HCC) (HCC) Chest pain, unspecified type Procedures NM MPI SPECT (Rest and/or Stress) Multiple Studies Addi Gibbs DO [address] [place] [address] [place] [id number] Phone: tel: fax: [address] [phone] Referral ID Status Reason Start Date Expiration Date Visits Re quested Visits Authorized [id number] Closed 02/28/2020 09/08/2021 1 1 Reason for Visit * Diagnostic Imaging (Routine) - Closed Specialty Diagnoses / Procedures Referred By Darío alston Referred To Contact Diagnoses Typical atrial flutter (CMS/HCC) (HCC) Chest pain, unspecified type Procedures NM MPI SPECT (Rest and/or Stress) Multiple Studies Addi Gibbs DO [address] [place] [address] [place] [id number] Phone: tel: fax: [address] [phone] Referral ID Status Reason Start Date Expiration Date Visits Re quested Visits Authorized [id number] Closed 02/28/2020 09/08/2021 1 1 Encounter Details Date Type Department Care Team (Latest Contact Info) Description 03/07/2020 6:52 AM CDT - 03/07/2020 6:59 AM CDT Hospital Encounter [facility] [address] [place] [address] Addi Gibbs, [address] [place] [address] Typical atrial flutter (CMS/HCC); Chest pain, unspecified type Discharge Disposition: Discharge to home or self [...] on file Legal Sex 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 No change required. documented in this encounter Plan of Treatment Not on file documented as of this encounter Procedures Procedure Name Priority Date/Time Associated Diagnosis Comments NM MPI SPECT (REST AND/OR STRESS) MULTIPLE STUDIES Schedule JUDY, Read Routine (Patient lives out of area) 03/07/2020 9:10 AM CDT Typical atrial flutter (CMS/HCC) Chest pain, unspecified type STRESS TEST FOR DUAL READ Schedule JUDY, Read Routine (Patient lives out of area) 03/07/2020 9:10 AM CDT Typical atrial flutter (CMS/HCC) Chest pain, unspecified type documented in this encounter Results * Stress Test for Myocardial Perfusion (03/07/2020 9:10 AM CDT) Anatomical Region Laterality Modality Nuclear Medicine 03/07/2020 8:26 AM CDT Narrative 03/07/2020 10:36 AM CDT [address] [place] [address] Lexiscan Report Patient Name: RAMESH RUFF M : 1965 Study Date: 03/07/2020 08:26:52 Gender: F Tech: nathan espinosa Ref.Provider: ADDI GIBBS Height(Cm): 66 BSA: Weight(Kg): 225 Heart Rate: 139 Order Provider: ADDI GIBBS Procedures: Pharmacologic SPECT Report.: Myocardial perfusion imaging with Sestamibi SPECT at rest and post regadenoson (Lexiscan) infusion. Indications: Chest Pain. Findings: Procedure Data: Resting HR 67 bpm. Peak HR: 135 bpm. Predicted Maximal HR 164 bpm. Target HR: 139 bpm. Percent Max Predicted HR Achieved: 82.32 %. Baseline BP: 102/73 mmHg. Peak BP: 120/77 mmHg. Exercise Time: 0.17. Performed By: Nathan Espinosa. Wayne Vallecillo. Reason for Termination: Lexiscan protocol complete. Resting ECG: Normal sinus rhythm, poor R wave progression. Post Pharm ECG: No diagnostic ST changes. Arrhythmia: Rare PVCs. Rare APCs. Cardiac Symptoms With Stress: Symptoms with stress were None. Exam Interpreted: Read by . Conclusions: 1. Negative Lexiscan pharmacologic stress test for chest pain or EKG changes. 2. Nuclear images are pending and they will be reported separately. Electronically Signed By: Dr Qamar Ramirez 2020-03-07 10:36:49 CDT Procedure Note Qamar Ramirez MD - 03/07/[address] [address] [employer] Report Patient Name: RAMESH RUFF M : 1965 Study Date: 03/07/2020 08:26:52 Gender: F Tech: nathan espinosa Ref.Provider: ADDI GIBBS Height(Cm): 66 BSA: Weight(Kg): 225 Heart Rate: 139 Order Provider: ADDI GIBBS Procedures: Pharmacologic SPECT Report.: Myocardial perfusion imaging with Sestamibi SPECT at rest and postregadenoson (Lexiscan) infusion. Indications: Chest Pain. Findings: Procedure Data: Resting HR 67 bpm. Peak HR: 135 bpm. Predicted Maximal HR 164 bpm. TargetHR: 139 bpm. Percent Max Predicted HR Achieved: 82.32 %. Baseline BP: 102/73 mmHg. PeakBP: 120/77 mmHg. Exercise Time: 0.17. Performed By: Nathan Espinosa. Wayne Vallecillo. Reason for Termination: Lexiscan protocol complete. Resting ECG: Normal sinus rhythm, poor R wave progression. Post Pharm ECG: No diagnostic ST changes. Arrhythmia: Rare PVCs. Rare APCs. Cardiac Symptoms With Stress: Symptoms with stress were None. Exam Interpreted: Read by . Conclusions: 1. Negative Lexiscan pharmacologic stress test for chest pain or EKGchanges. 2. Nuclear images are pending and they will be reported separately. Electronically Signed By: Dr Qamar Ramirez 2020-03-07 10:36:49 CDT Addi Gibbs DO CV STRESS PROCEDURES Final Result * NM MPI SPECT (Rest and/or Stress) Multiple Studies (03/07/2020 9:10 AM CDT) Anatomical Region Laterality Modality Body N/A Nuclear Medicine 03/07/2020 7:17 AM CDT Narrative 03/07/2020 10:50 [place] [address] [employer] Report Patient Name: RAMESH RUFF M : [...] Gibbs 2020-03-07 10:50:25 CDT Procedure Note Addi Gibbs DO - 03/07/[address] [place] [address] Lexiscan Report Patient Name: RAMESH RUFF M [...] Diagnoses Diagnosis Typical atrial flutter (CMS/HCC) (HCC) Chest pain, unspecified type documented in this encounter Administered Medications Inactive Administered Medications - up to 3 most recent administrations Medication Order MAR Action Action Date Dose Rate Site tc-99m tetrofosmin (MYOVIEW) injection 10.6 millicurie 10.6 millicurie, intravenous, Once in imaging, radiopharmaceutical, Starting on Opal 03/07/20 at 0737, For 1 dose, Indications: Diagnostic RadiographyIndications:Chyna gnostic Radiography Given 03/07/2020 7:10 AM CDT 10.6 millicuries tc-99m tetrofosmin (MYOVIEW) injection 31.2 millicurie 31.2 millicurie, intravenous, Once in imaging, radiopharmaceutical, Starting on Opal 03/07/20 at 0737, For 1 dose, Indications: Diagnostic RadiographyIndications:Chyna gnostic Radiography Given 03/07/2020 8:30 AM CDT 31.2 millicuries documented in this encounter Care Teams Athletic Turf Worker Relationship Specialty Start Date End Date Arben Pak MD [address] [place] [address] PCP - General 03/07/20 03/25/20 documented as of this encounter
--- OUTSIDE RECORDS SUMMARY | 2024-10-13 16:14 | XMS_ITS | Encounter Summary ---
Author Organization [facility] Address [address] [place] [address] Care Team Providers Care Windscreen Fitter Name Role Phone Wali Pak MD Primary Care Provider [phone] Encounter Details Date Type Department Care Team (Late st Contact Info) Description 09/22/2014 12:11 PM COFFEE BREWER - 09/22/2014 11:59 PM COFFEE BREWER Hospital Encounter [facility]INCONV Other screening mammogram; Abnormal mammogram Social History Tobacco Use Types Packs/Day Years Used Date Smoking Tobacco: Never Alcohol Use Standard Drinks/Week Comments Yes 0 (1 standard drink = 0.6 oz pur e alcohol) Comments Unknown Sex and Gender Information Value Date Recorded Sex Assigned at Not on file Legal Sex Female 1:15 AM COFFEE BREWER Gender Identity Not on file Sexual Orientation [...] Date/Time Associated Diagnosis Comments DIGITAL MAMMOGRAPHY Routine 09/22/2014 1 2:25 PM COFFEE BREWER documented in this encounter Results * DIGITAL MAMMOGRAPHY (09/22/2014 12:25 PM COFFEE BREWER) Anatomical Region Laterality Modality Breast Mammography 09/22/2014 12:2 5 PM COFFEE BREWER Narrative 09/23/2014 4:17 PM COFFEE BREWER Screening Mamm Bi ??Acc#: ??[id number] DATE OF EXAM: ??Sep 22 2014 Performed by: ss CLINICAL HISTORY: Routine screening. RESULT: Two views of each breast obtained, compared with 12/09/11. ??Minimal to mild fibroglandular pattern bilaterally. ??No dominant mass is demonstrated. ??No suspicious clusters of microcalcifications are evident. ??A small density is seen outer right breast, which may be due to fibroglandular tissue and superimposition of shadows. ??Cone compression view and exaggerated craniocaudal projection recommended for further evaluation. ??A density is seen anterior aspect medial right breast near the retroareolar region. ??This appears slightly more prominent than previously. ??Cone compression view recommended for further evaluation. Digital technology was employed plus computer-aided detection software (R2) was utilized in interpretation of these images. ??This facility utilizes a reminder system to notify patients of yearly mammograms. IMPRESSION: DENSITY OUTER RIGHT BREAST. ??DENSITY MEDIAL RIGHT BREAST. ??ADDITIONAL VIEWS RECOMMENDED FOR FURTHER EVALUATION. BI-RADS CATEGORY 0 - NEED ADDITIONAL IMAGING EVALUATION Interpreting Physician: ??GAIL STORM M.D. ??Read on: ??Sep 23 2014 10:20A Transcribed by: ??mrr ??On: Sep 23 2014 10:57A Approved Electronically by: ??GAIL STORM M.D. ??on: ??Sep 23 2014 ??4:17P Ordering DR: DR RODO GARCIA Attending : RODO GARCIA Procedure Note Provider, MD Denice - 02/18/2017 Screening Mamm Bi Acc#: [id number] DATE OF EXAM: Sep 22 2014 Performed by: jonas CLINICAL HISTORY: Routine screening. RESULT: Two views of each breast obtained, compared with 12/09/11. Minimal tomild fibroglandular pattern bilaterally. No dominant mass isdemonstrated. No suspicious clusters of microcalcifications are evident.A small density is seen outer right breast, which may be due tofibroglandular tissue and superimposition of shadows. Cone compressionview and exaggerated craniocaudal projection recommended for furtherevaluation. A density is seen anterior aspect medial right breast nearthe retroareolar region. This appears slightly more prominent thanpreviously. Cone compression view recommended for further evaluation.Digital technology was employed plus computer-aided detection software(R2) was utilized in interpretation of these images. This facilityutilizes a reminder system to notify patients of yearly mammograms. IMPRESSION: DENSITY OUTER RIGHT BREAST. DENSITY MEDIAL RIGHT BREAST. ADDITIONALVIEWS RECOMMENDED FOR FURTHER EVALUATION. BI-RADS CATEGORY 0 - NEEDADDITIONAL IMAGING EVALUATION Interpreting Physician: GAIL STORM M.D. Read on: Sep 23 2014 10:20A Transcribed by: rasta On: Sep 23 2014 10:57A Approved Electronically by: GAIL STORM M.D. on: Sep 23 2014 4:17P Ordering DR: DR RODO GARCIA Attending DR: RODO GARCIA us Historical Provider MD [facility] MAMMO PROCEDURES Mary l Result documented in this encounter Visit Diagnoses Diagnosis Other screening mammogram Abnormal mammogram Abnormal mammogram, unspecified documented in this encounter Care Teams Windscreen Fitter Relationship Specialty Start Date End Date Wali Pak MD [address] [place] [address] PCP - General 07/18/13 12/06/16 documented as of this encounter
--- OUTSIDE RECORDS SUMMARY | 2024-10-13 16:14 | XMS_ITS | Encounter Summary ---
Author Organization [facility] Address [address] [place] [address] Care Team Providers Care Punch Machine Operator Name Role Phone Arben Pak MD Primary Care Provider [phone] Encounter Details Date Type Department Care Team (Latest Contact Info) Description 12/07/2016 5:40 PM STREETSWEEPER OPERATOR - 12/07/2016 11:59 PM STREETSWEEPER OPERATOR Hospital Encounter [facility] OP INTERIM Janee hZu MD [address] [place], [place] [id number] Discharge Disposition: Discharge to home or self care Social History Tobacco Use Types Packs/Day Years Used Date Smoking Tobacco: Never Alcohol Use Standard Drinks/Week Comments Yes 0 (1 standard drink = 0.6 oz pur e alcohol) Comments Unknown Sex and Gender Information Value Date Recorded Sex Assigned at Not on file Legal Sex Female 1:15 AM STREETSWEEPER OPERATOR Gender Identity Not on file Sexual [...] on filedocumented in this encounter Care Teams Punch Machine Operator Relationship Specialty Start Date End Date Arben Pak MD [address] [place] [address] PCP - General 12/07/16 01/21/17 documented as of this encounter
--- OUTSIDE RECORDS SUMMARY | 2024-10-13 16:14 | XMS_ITS | Encounter Summary ---
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
--- OUTSIDE RECORDS SUMMARY | 2024-10-13 16:14 | XMS_ITS | Encounter Summary ---
Author Organization [facility] Address [address] [place] [address] Care Team Providers Care Electronic Page Makeup System Operator Name Role Phone Wali Pak MD Primary Care Provider [phone]- [phone] Reason for Visit * Reason Onset Date Comments Prior Auth 05/01/2020 eliquis Encounter Details Date Type Department Care Team (Late st Contact Info) Description 05/01/2020 Documentation [place] Ship Erector [address] [place] [phone] Anisa Carroll MA Prior Auth (eliquis) Social History Tobacco Use Types Packs/Day Years [...] on file Legal Sex Female 1:15 AM 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
--- OUTSIDE RECORDS SUMMARY | 2024-10-13 16:14 | XMS_ITS | Encounter Summary ---
Author Organization [facility] Address [address] [place] [address] Care Team Providers Care Spray Cementer Name Role Phone Wali Pak MD Primary Care Provider [phone]- [phone] Arben Pak MD Primary Care Provider [phone]- [phone] Arben Pak MD Primary Care Provider [phone] Encounter Details Date Type Department Care Team (Late st Contact Info) Description 01/11/2017 Orders Only [facility] Interim [phone] Wali Pak MD [address] [place] [address] Social History Tobacco Use Types Packs/Day Years Used Date Smoking Tobacco: Never Alcohol Use Standard Drinks/Week Comments Yes 0 (1 standard drink = 0.6 oz pur e alcohol) Comments Unknown Sex and Gender Information Value Date Recorded Sex Assigned at Not on file Legal Sex Female 1:15 AM PHYSICAL EDUCATION DEPARTMENT CHAIR Gender Identity Not on file Sexual Orientation Not on file documented as of this encounter Plan of Treatment Not on file documented as of this encounter Procedures Procedure Name Priority Date/Time Associated Diagnosis Comments TSH New Adm-Reg 01/11/2017 4:10 PM CDT documented in this encounter Results * TSH (01/11/2017 4:10 PM CDT) Thyroid Stimulating Hormone 2.20 0.30 - 5.00 mcIUnit/mL [facility] ([facility]) Blood specimen (specimen) 01/11/2017 4:10 PM CDT 01/11/2017 5:13 PM CDT Narrative [facility]IGHT (SHELBY) - 01/11/2017 6:06 PM CDT FAX RESULTS TO [phone] us Wali Pak MD LAB BLOOD ORDERABLES Final Result [facility] ([facility]) [address] [facility] Department [place] [address] documented in this encounter Visit Diagnoses Not on filedocumented in this encounter Care Teams Spray Cementer Relationship Specialty Start Date End Date Wali Pak MD [facility] [place] [address] PCP - General 01/22/17 02/15/17 Arben Pak MD [address] [place] [address] PCP - General 12/07/16 01/21/17 Arben Pak MD [address] [place] [address] PCP - General 02/16/17 03/06/20 documented as of this encounter
--- OUTSIDE RECORDS SUMMARY | 2024-10-13 16:14 | XMS_ITS | Encounter Summary ---
Author Organization [facility] Address [address] [address] Care Team Providers Care Vp Biology Name Role Phone Arben Pak MD Primary Care Provider Encounter Details Date Type Department Care Team (Latest Contact Info) Description 09/30/2017 6:55 AM AMMONIA SOLUTION PREPARER - 09/30/2017 11:59 PM AMMONIA SOLUTION PREPARER Hospital Encounter [facility] [address] [place] [phone] Discharge Disposition: Discharge to home or self care Social History Tobacco Use Types Packs/Day Years Used Date Smoking Tobacco: Never Smokeless Tobacco: Never Alcohol Use Standard Drinks/Week Comments Yes 0 (1 standard drink = 0.6 oz pur e alcohol) Comments Unknown Sex and Gender Information Value Date Recorded Sex Assigned at Not on file Legal Sex Female 1:15 AM AMMONIA SOLUTION PREPARER Gender Identity Not on file Sexual Orientation Not on file documented as of this encounter Medications at Time of Discharge clarithromycin (BIAXIN) 500 mg tablet 06/27/2017 01/07/2018 famotidine (PEPCID) 40 mg tablet 07/02/2017 01/07/2018 levothyroxine (SYNTHROID) 100 mcg tablet Take by mouth. 01/07/2018 meloxicam (MOBIC) 15 mg tablet take 1 tablet by oral route every day with food for 2 weeks then off for 1 week 30 1 09/07/2013 01/07/2018 predniSONE (DELTASONE) 10 mg tablet 07/02/2017 01/07/2018 documented as of this encounter Discharge Disposition Disposition Code Departure Means Destination Discharge to home or self care documented in this encounter Plan of Treatment Not on file documented as of this encounter Procedures Procedure Name Priority Date/Time Associated Diagnosis Comments XR HAND RIGHT 3 OR MORE VIEWS Schedule Routine, Read Routine (OP Routine) 09/30/2017 1:47 PM AMMONIA SOLUTION PREPARER Right hand pain documented in this encounter Results * XR Hand Right 3 or More Views (09/30/2017 1:47 PM AMMONIA SOLUTION PREPARER) Anatomical Region Laterality Modality Upper Extremities, [facility] Narrative 10/09/2017 8:49 PM AMMONIA SOLUTION PREPARER Interpretation of x-rays: ??Three views of the right hand taken today in the office demonstrate, in my opinion, no acute bony abnormality, fracture or dislocation. JESIKA Eng II IMG XR PROCEDURES Final Result documented in this encounter Visit Diagnoses Not on filedocumented in this encounter Care Teams Vp Biology Relationship Specialty Start Date End Date Arben Pak MD [address] [place] [address] PCP - General 02/16/17 03/06/20 documented as of this encounter
--- OUTSIDE RECORDS SUMMARY | 2024-10-13 16:14 | XMS_ITS | Encounter Summary ---
Author Organization [facility] Healthcare Address [address] [place] [address] Care Team Providers Care Account Executive Key Accounts Name Role Phone Wali Pak MD Primary Care Provider [phone]- [phone] Encounter Details Date Type Department Care Team (Late st Contact Info) Description 01/17/2015 9:59 AM CDT - 01/18/2015 11:25 AM CDT Hospital Encounter [facility] Mauro, Leslye Lozano MD [address] [place] [address] Excessive or frequent menstruation; Subserous leiomyoma of uterus; Endometriosis of pelvic peritoneum; Peritoneal adhesions; Hypothyroidism Social History Tobacco Use Types Packs/Day Years Used Date Smoking Tobacco: Never Alcohol Use Standard Drinks/Week Comments Yes 0 (1 standard drink = 0.6 oz pur e alcohol) Comments Unknown Sex and Gender Information Value Date Recorded Sex Assigned at Not on file 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 Gender Identity Not on file Sexual Orientation Not on file documented as of this encounter Last Filed Vital Signs Vital Sign Reading Time Taken Comments Blood Pressure - - Pulse - - Temperature - - Respiratory Rate - - Oxygen Saturation - - Inhaled Oxygen Concentration - - Weight 87.1 kg (192 lb) 01/17/2015 7:00 PM CDT Height 167.6 cm (5' 5.98 ) 01/17/2015 7:00 PM CD T Body Mass Index 31 01/17/2015 7:00 PM CDT documented in this encounter Medications at Time of Discharge meloxicam (MOBIC) 15 mg tablet take 1 tablet by oral route every day with food for 2 weeks then off for 1 week 30 1 09/07/2013 01/07/2018 documented as of this encounter Miscellaneous Notes * Op Note - Provider, MD Denice - 01/17/2015 12:00 AM CDT OPERATIVE REPORT Patient: MERVAT RUFF Account: [id number] Room No: 185-A : 1965 Patient Type: SDS Attend.: Leslye Navarrete M.D. Admit Date: 01/17/2015 Surg.: Leslye Navarrete M.D. Disch. Date: 01/18/2015 DATE OF SURGERY: January 17, 2015. PREOPERATIVE DIAGNOSIS: Menorrhagia. POSTOPERATIVE DIAGNOSIS: Menorrhagia including uterine fibroids and endometriosis. ANESTHESIA: General. COMPLICATIONS: None. ESTIMATED BLOOD LOSS AND IV FLUIDS: See Anesthesia record. URINE OUTPUT: Clear at the end of the procedure. SPECIMEN: Included uterus and cervix. FINDINGS: Examination under anesthesia revealed a 13 week size uterus, anteverted, no adnexal masses, intra-abdominal survey revealed a normal appearing liver and gallbladder. There were significant omental adhesions to the anterior abdominal wall near the umbilicus extending down to the midline of the pelvis. There were adhesions of the right adnexa specifically near the right tube and ovary. The right ovary was normal in appearance. The left ovary was normal in appearance. There were endometriotic implants along the uterine fundus and anterior wall of the uterus as well as at least two, two cm subserosal uterine fibroids along the fundus and the posterior uterine wall near the left cornua. PROCEDURE: The patient was taken to the operating room where general anesthesia was found to be adequate. She was prepped and draped in the dorsal lithotomy position using Miguel Ángel stirrups with pneumatic compression devices and the knees bent at 30 degree angle. Examination under anesthesia was performed and the above findings were noted. A Stroud catheter was placed using sterile technique to empty the bladder. A sterile weighted speculum was placed into the vagina along with a right angle retractor. The cervix was grasped with a single toothed tenaculum. Uterine sound was introduced and uterus was noted to be sounded to 12 cm. The sound was removed. Anterior lip of the cervix was grasped with a single toothed tenaculum. The small Hulka uterine manipulator was then introduced into the uterine cavity. The cup was firmly applied to the cervix and the cup fastened in place. All other instruments were then removed from the vagina using sterile technique. Attention was then turned to the abdomen. The abdomen was then grasped infraumbilically and a periumbilical skin incision was created supraumbilically using a small scalpel. The five mm trocar was then placed under laparoscopic guidance through the incision and intra-abdominal placement was confirmed. The pneumoperitoneum was established with C02 gas to a pressure of 50 mmHg. Then under laparoscopic guidance, two, five mm trocars were placed in the right and left lower quadrants. Because visualization was difficult due to adhesions of the omentum to the anterior abdominal wall, dissection of these omental adhesions was necessary in order for better visualization. So, a five mm suprapubic port was also placed under laparoscopic guidance. Through this port the LigaSure was then used to dissect the filmy areas of the omental adhesions away from the anterior abdominal wall until good visualization was able to be obtained. An intra-abdominal survey was performed and the above findings were noted. With the patient in Trendelenburg position, a pelvic anatomy survey was performed and the above findings were noted. Grasping the right round ligament, the round ligament was then dissected with the LigaSure device. This dissection continued into the meso-ovarium and anterior leaf of the broad ligament as well as the right tube was then dissected as well as the right utero-ovarian ligament and artery were also dissected away. The dissection was continued down the anterior and posterior leaf of the broad ligament to the level of the internal os of the cervix where the uterine artery was then clamped and coagulated. This also allowed initiation of the development of the bladder flap. The vesicouterine peritoneum was elevated away from the uterine incision. Some scarring was noted due to the patient's prior sections. The bladder was able to be clearly visualized. The vesicouterine peritoneum was dissected with the LigaSure device up to the midline of the uterus. Attention was then turned to the left adnexa where the left round ligament was grasped with the LigaSure device, clamped and coagulated. The left utero-ovarian ligament artery was clamped, coagulated and dissected along with the left tube. Dissection continued into the meso-ovarium and then finally into the anterior and posterior leaf of the broad ligament extending down to the level of the internal os of the cervix. At this point again the uterine arteries were able to be visualized and they were clamped, coagulated and transected. This allowed completion of the remainder of the bladder flap elevating the vesicouterine peritoneum away from the uterus and extending the dissection to meet the previously initiated portion of the bladder flap. The bladder was then lifted with atraumatic graspers away from the lower uterine segment. At this point sufficient intra-abdominal dissection had been performed and the decision was made to complete the procedure vaginally. So the pneumoperitoneum was released after the instruments but not until the ports were removed from the abdomen. The patient was repositioned in dorsal lithotomy position with hips, legs and thighs slightly abducted. The cervix was grasped with a single toothed tenaculum and injected with dilute vasopressin using 20 units within 30 ml of normal saline. Ten ml were injected circumferentially into the cervix. Then using the Bovie tip, a circumferential incision was made around the cervix and the appropriate plane was entered anteriorly. The posterior cul-de-sac was then entered sharply with Metzenbaum scissors and bloody peritoneal fluid was noted. Significant uterine descent was also noted after the uterosacral and Cardinal ligaments were sequentially clamped, coagulated and transected with the hand held LigaSure device. The anterior cul-de-sac was then entered without difficulty with some use of blunt dissection. Uterine vessels were again identified, clamped, coagulated and transected with the LigaSure device. The uterus and tubes were then delivered intact through the vagina with some manipulation and under laparoscopic guidance after pneumoperitoneum was re-established while the uterus was in the vaginal vault. The vaginal angles were then transfixed to the uterosacral ligament. The vaginal cuff was then closed using 0 Vicryl in a running lock fashion. The pelvis was then thoroughly inspected and an area of oozing was noted on the left side of the vaginal cuff. This was able to be coagulated with the LigaSure device. Then Richard was sprinkled along the vaginal cuff and pedicles. Once the area was noted to be hemostatic, the abdomen was then desufflated under laparoscopic visualization. All instruments were carefully removed from the abdomen. The skin incisions were closed with 4-0 Vicryl and Dermabond solution. The patient tolerated the procedure well. All counts were correct. The patient was taken to the Recovery Room in stable condition. Leslye Navarrete M.D. JAVED/nicolas TD: 01/24/2015 10:54 Electronically Authenticated by: Leslye Navarrete On 01/25/2015 08:03 AM CDT documented in this encounter Plan of Treatment Not on file documented as of this encounter Procedures Procedure Name Priority Date/Time Associated Diagnosis Comments SERUM BASIC METABOLIC PANEL Routine 01/18/2015 5:45 AM CDT BLOOD WBC CELL MORPHOLOGIC EXAM, AUTO Routine 01/18/2015 5:45 AM CDT BLOOD CELL COUNT (CBC) Routine 01/18/2015 5:45 AM CDT DISCHARGE LABORATORY CUMULATIVE REPORT Routine 01/18/2015 12:00 AM CDT BLOOD GLUCOSE Routine 01/17/2015 10:57 AM CDT SERUM POTASSIUM Routine 01/17/2015 10:30 AM CDT BLOOD WBC CELL MORPHOLOGIC EXAM, AUTO Routine 01/17/2015 10:30 AM CDT BLOOD CELL COUNT (CBC) Routine 01/17/2015 10:30 AM CDT SURGICAL PATHOLOGY 01/17/2015 documented in this encounter Results * (ABNORMAL) Serum basic metabolic panel (01/18/2015 5:45 AM CDT) BUN 12.6 8.0 - 25.0 mg/dl HISTORICAL RESULTS Sodium 137 135 - 145 mmol/L HISTORICAL RESULTS Potassium, sr 4.2 3.5 - 5.1 mmol/L HISTORICAL RESULTS Chloride 104 97 - 110 mmol/L HISTORICAL RESULTS CO2 24 22 - 32 mmol/L HISTORICAL RESULTS Glucose 135 70 - 199 mg/dl HISTORICAL RESULTS Comment: Note:The glucose is assumed non fasting Fastin-99 mg/dl Random: 70-199 mg/dl Either a fasting glucose > 126 mg/dL or a random glucose > 200 mg/dL plus symptoms is diagnostic of diabetes when confirmed on another day. Fasting values > 100 mg/dl but < 125 mg/dL are diagnostic of impaired fasting glucose. Creatinine 0.60 0.60 - 1.10 mg/dl HISTORICAL RESULTS Comment: eGFR: >70 ml/min/1.73sq.m if non -[place]. eGFR: >70 ml/min/1.73sq.m if -North Korean. AVE GFR for 50-59 yr. age group: ??93 ml/min/1.73sq.m Calculated using MDRD Equation BUN/creat ratio 21(H) 10 - 20 HIST ORICAL RESULTS A. gap 14 8 - 16 mmol/L HISTORICAL RESULTS Osmo, calc 276 275 - 295 mOsm/kg HISTORICAL RESULTS Calcium 8.8 8.6 - 10.2 mg/dl HISTORICAL RESULTS Serum 01/18/2015 5:45 AM CDT us Historical Provider LAB BLOOD ORDERABLES Mary l Result HISTORICAL RESULTS * (ABNORMAL) Blood cell count (CBC) (01/18/2015 5:45 AM CDT) WBC 13.4(H) 4.0 - 10.5 K/cumm HISTORICAL RESULTS RBC 4.24 4.20 - 5.40 M/cumm HISTORICAL RESULTS Hgb 12.4 12.0 - 16.0 g/dl HISTORICAL RESULTS Hct 37.4 37.0 - 47.0 % HISTORICAL RESULTS MCV 88.2 77.0 - 97.0 fl HISTORICAL RESULTS MCH 29.2 23.0 - 34.0 pg HISTORICAL RESULTS MCHC 33.2 32.0 - 36.0 g/dl HISTORICAL RESULTS Rdw 14.0 11.5 - 14.5 % HISTORICAL RESULTS Platelets 282 150 - 400 K/cumm HISTORICAL RESULTS MPV 9.9 7.4 - 10.4 fl HISTORICAL RESULTS Blood specimen (specimen) 01/18/2015 5:45 AM CDT us Historical Provider LAB BLOOD ORDERABLES Mary laya Result HISTORICAL RESULTS * (ABNORMAL) Blood WBC cell morphologic exam, auto (01/18/2015 5:45 AM CDT) Lymphocytes 14.7(L) 25.0 - 33.0 % HISTORICAL RESULTS Monos 7.6 0.0 - 13.0 % HISTORICAL RESULTS Neutrophils 77.5(H) 54.0 - 69.0 % HISTORICAL RESULTS Eosinophils 0.0 0.0 - 10.0 % HISTORICAL RESULTS Basophils 0.0 0.0 - 1.0 % HISTORICAL RESULTS Immature granulocytes 0.2 0.0 - 1.0 % HISTORICAL RESULTS Lymphocytes, abs 2.0 1.2 - 3.4 K/cumm HISTORICAL RESULTS Monocytes, absolute 1.0(L) 1.1 - 1.9 K/cumm HISTORICAL RESULTS Neutrophils, abs 10.4(H) 1.4 - 6.5 K/cumm HISTORICAL RESULTS Eosinophils, abs 0.0 0.0 - 0.7 cells/cum m HISTORICAL RESULTS Basophils, abs 0.0 0.0 - 0.2 K/cumm HISTORICAL RESULTS Immature granulocyte, abs 0.0(H) 0.0 - 0.0 K/cumm HISTORICAL RESULTS Blood specimen (specimen) 01/18/2015 5:45 AM CDT us Historical Provider LAB BLOOD ORDERABLES Mary asif Result HISTORICAL RESULTS * Discharge Laboratory Cumulative Report (01/18/2015 12:00 AM CDT) 01/18/2015 Narrative HISTORICAL RESULTS - 01/19/2015 2:48 AM CDT Patient No: [id number] ? [facility] Patient Name: MERVAT RUFF ?[facility] Age: 49 YRS ?: 1965 ?Sex:F ?[address] )[id number] ?? Adm Dt: 01/17/2015 ?[place], [place] ??[address] Created: 01/19/2015 ??0248 ?? Pt. Type: U ? Discharge Dt: 01/18/2015 ? Pathologists: Thi Balbuena MD Admit Attend Dr: LESLYE NAVARRETE MD ? BLOOD CELL COUNTS ?Collection Date: ?01/18/15 ? 01/17/15 ?Collection Time: ?0545 ? 1030 ? Ref Range: ?? Units: [4.00-10.50] /CMM ? WBC X 10^3 ? 13.43 H ? 6.01 [4.20-5.40] ??/CMM ? RBC X 10^6 ?4.24 ? 4.75 [12.0-16.0] ??G/DL ? HGB ? 12.4 ? 14.0 [37.0-47.0] ??% ?HCT ? 37.4 ? 42.1 [77.0-97.0] ??FL ? MCV ? 88.2 ? 88.6 [23.0-34.0] ??PG ? MCH ? 29.2 ? 29.5 [32.0-36.0] ??% ?MCHC ?33.2 ? 33.3 [11.5-14.5] ??% ?RDW ? 14.0 ? 14.3 [150-400] ?? /CMM ? PLT X 10^3 ? 282 ?295 ?BLOOD CELL DIFFERENTIAL ?Collection Date: ?01/18/15 ? 01/17/15 ?Collection Time: ?0545 ? 1030 ? Ref Range: ?? Units: [54.0-69.0] ??% ?NEUTROPHILS ? 77.5 H ? 55.7 [25.0-33.0] ??% ?LYMPHOCYTES ? 14.7 L ? 31.8 [0.0-13.0] ??% ?MONOCYTES ?7.6 ?8.0 [0.0-10.0] ??% ?EOSINOPHILS ?0.0 ?4.0 [0.0-1.0] ?? % ?BASOPHILS ?0.0 ?0.3 ? /CMM ? A LYMPHOCYTE ? 2.0 ?1.9 [0.0-1.0] ?? % ?IMM GRAN % ? 0.2 ?0.2 [0.00-0.02] ??/CMM ? A IMM GRAN ?0.03 H ? 0.01 [1.1-1.9] ?? /CMM ? A MONOCYTE ? 1.0 L ?0.5 L [1.4-6.5] ?? /CMM ? A NEUTROPHIL ?10.4 H ?3.4 [0.0-0.7] ?? /CMM ? A EOSINOPHIL ? 0.0 ?0.2 [0.0-0.2] ?? /CMM ? A BASOPHIL ? 0.0 ?0.0 Footnotes and Symbols: L = Low, H = High ?? CONTINUED ?Page: ?? 1 Patient No: [id number] ? [facility] Patient Name: EMRVAT RUFF ?[facility] Age: 49 YRS ?: 1965 ?Sex:F ?[address] )[id number] ?? Adm Dt: 01/17/2015 ?[place], [place] ??[address] Created: 01/19/2015 ??0248 ?? Pt. Type: U ? Discharge Dt: 01/18/2015 ? Pathologists: Thi Balbuena MD Admit DrBonnie Attend Dr: LESLYE NAVARRETE MD ? GENERAL CHEMISTRY ?Collection Date: ?01/18/15 ? 01/17/15 ?Collection Time: ?0545 ? 1057 ? Ref Range: ?? Units: [135-145] ?? MMOL/L ? SODIUM ? 137 ??[70-199] ?? MG/DL ?POC GLUCOSE ?90 [3.5-5.1] ?? MMOL/L ? POTASSIUM ?4.2 [97.0-110.0] MMOL/L ? CHLORIDE ? 104.0 [22.0-32.0] ??MMOL/L ? TOTAL CO2 ? 23.7 ?? [8-16] ?MMOL/L ? ANION GAP ? 14 ??[70-199] ?? MG/DL ?GLUCOSE ?135 f [275-295] ?? MOSM/K ? CALCULATED OSMO ?276 [8.6-10.2] ??MG/DL ?CALCIUM ?8.8 [8.0-25.0] ??MG/DL ?BUN ? 12.6 ??[10-20] ? B/C RATIO ? 21 H [0.60-1.10] ??MG/DL ?CREATININE ?0.60 f ?01/18/15 6917 eGFR: >70 ml/min/1.73sq.m if non -[place]. eGFR: >70 ml/min/1.73sq.m if -[place] Korean. AVE GFR for 50-59 yr. age group: ??93 ml/min/1.73sq.m Calculated using MDRD Equation FOOTNOTE ADDED ON ?? 01/18/15 ?? AT 0635 BY 999 Footnotes and Symbols: H = High, f = Footnote GLUCOSE (12/05/14 -- Current) Note:The glucose is assumed non fasting Fastin-99 mg/dl Random: 70-199 mg/dl Either a fasting glucose > 126 mg/dL or a random glucose > 200 mg/dL plus symptoms is diagnostic of diabetes when confirmed on another day. Fasting values > 100 mg/dl but < 125 mg/dL are diagnostic of impaired fasting glucose. ?? CONTINUED ?Page: ?? 2 Patient No: [id number] ? [facility] Patient Name: MERVAT RUFF ?[facility] Age: 49 YRS ?: 1965 ?Sex:F ?[address] )[id number] ?? Adm Dt: 01/17/2015 ?[place], [place] ??[address] Created: 01/19/2015 ??0248 ?? Pt. Type: U ? Discharge Dt: 01/18/2015 ? Pathologists: Thi Balbuena MD Admit Attend Dr: LESLYE NAVARRETE MD ? GENERAL CHEMISTRY ?Collection Date: ?01/17/15 ?Collection Time: ?1030 ? Ref Range: ?? Units: [3.5-5.1] ?? MMOL/L ? POTASSIUM ?3.7 ?? END OF CHART ? Page: ?? 3 us Historical Provider MD LAB BLOOD ORDERABLES Mary l Result HISTORICAL RESULTS * Blood glucose (01/17/2015 10:57 AM CDT) Glucose, bld 90 70 - 199 mg/dl HISTORICAL RESULTS Blood specimen (specimen) 01/17/2015 10:57 AM CDT Result [facility] Historical Provider LAB BLOOD ORDERABLES Mary l Result Performing Organization Address [facility] de Phone Number HISTORICAL RESULTS * Serum potassium (01/17/2015 10:30 AM CDT) Potassium, sr 3.7 3.5 - 5.1 mmol/L HISTORICAL RESULTS Serum 01/17/2015 10:3 0 AM CDT Result [facility] Historical Provider LAB BLOOD ORDERABLES Mary l Result Performing Organization Address [facility] de Phone Number HISTORICAL RESULTS * Blood cell count (CBC) (01/17/2015 10:30 AM CDT) Pathologist [facility] WBC 6.0 4.0 - 10.5 K/cumm HISTORICAL RESULTS RBC 4.75 4.20 - 5.40 M/cumm HISTORICAL RESULTS Hgb 14.0 12.0 - 16.0 g/dl HISTORICAL RESULTS Hct 42.1 37.0 - 47.0 % HISTORICAL RESULTS MCV 88.6 77.0 - 97.0 fl HISTORICAL RESULTS MCH 29.5 23.0 - 34.0 pg HISTORICAL RESULTS MCHC 33.3 32.0 - 36.0 g/dl HISTORICAL RESULTS Rdw 14.3 11.5 - 14.5 % HISTORICAL RESULTS Platelets 295 150 - 400 K/cumm HISTORICAL RESULTS MPV 10.1 7.4 - 10.4 fl HISTORICAL RESULTS Blood specimen (specimen) 01/17/2015 10:30 AM CDT Result [facility] Historical Provider LAB BLOOD ORDERABLES Mary l Result Performing Organization Address [facility] de Phone Number HISTORICAL RESULTS * (ABNORMAL) Blood WBC cell morphologic exam, auto (01/17/2015 10:30 AM CDT) Lymphocytes 31.8 25.0 - 33.0 % HISTORICAL RESULTS Monos 8.0 0.0 - 13.0 % HISTORICAL RESULTS Neutrophils 55.7 54.0 - 69.0 % HISTORICAL RESULTS Eosinophils 4.0 0.0 - 10.0 % HISTORICAL RESULTS Basophils 0.3 0.0 - 1.0 % HISTORICAL RESULTS Immature granulocytes 0.2 0.0 - 1.0 % HISTORICAL RESULTS Lymphocytes, abs 1.9 1.2 - 3.4 K/cumm HISTORICAL RESULTS Monocytes, absolute 0.5(L) 1.1 - 1.9 K/cumm HISTORICAL RESULTS Neutrophils, abs 3.4 1.4 - 6.5 K/cumm HISTORICAL RESULTS Eosinophils, abs 0.2 0.0 - 0.7 cells/cumm HISTORICAL RESULTS Basophils, abs 0.0 0.0 - 0.2 K/cumm HISTORICAL RESULTS Immature granulocyte, abs 0.0 0.0 - 0.0 K/cumm HISTORICAL RESULTS Blood specimen (specimen) 01/17/2015 10:30 AM CDT Historical Provider LAB BLOOD ORDERABLES Mary l Result HISTORICAL RESULTS * Surgical pathology (01/17/2015) Narrative 01/17/2015 Ordered by an unspecified provider. Historical Provider MD LAB PATHOLOGY ORDERABLES Final Result documented in this encounter Visit Diagnoses Diagnosis Excessive or frequent menstruation Subserous leiomyoma of uterus Endometriosis of pelvic peritoneum Peritoneal adhesions Peritoneal adhesions (postoperative) (postinfection) Hypothyroidism Unspecified hypothyroidism documented in this encounter Care Teams Account Executive Key Accounts Relationship Specialty Start Date End Date Wali Pak MD [address] [place] [address] PCP - General 07/18/13 12/06/16 documented as of this encounter
--- OUTSIDE RECORDS SUMMARY | 2024-10-13 16:14 | XMS_ITS | Encounter Summary ---
Author Organization [facility] Address [address] [address] Care Team Providers Care Management Analyst Name Role Phone Arben Pak MD Primary Care Provider [phone]- [phone] Reason for Visit * Reason Comments Post-op Encounter Details Date Type Department Care Team (Late st Contact Info) Description 02/08/2018 1:15 PM CDT Office Visit [facility] Orthopedics and Sports Medicine [address] [place] [address] [address] [place] [address] Ivania Naik PA [address] [place] [address] [address] [place] [address] Aftercare following surgery (Primary Dx); S/P trigger finger release Social History Tobacco Use Types Packs/Day Years Used Date Smoking Tobacco: Never Smokeless Tobacco: Never Alcohol Use Standard Drinks/Week Comments Yes 0 (1 standard drink = 0.6 oz pur e alcohol) Comments Unknown Sex and Gender Information Value Date Recorded Sex Assigned at Not on file 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 Mervat Haro follows up for right Trigger finger release6 weeks. Patient reports they are not doing well. Pain is not well controlled. Patient states the presurgical symptoms are not improving. She notes that she was feeling great post operatively until recently where she notes increase swelling and pain. Vital Signs: BP 139/80 Pulse 82 Ht 167.6 cm (5' 6 ) Wt 100.2 kg (221 lb) BMI 35.67 kg/m?? Exam: Well approximated healing post operative incision. No active erythema, draining, or signs of infection present. Neurovascular status intact. Decrease AROM of middle finger Assessment: V58.78 Plan: Patient to start OT at [facility]. Patient is to FU in 5-6 weeks for re- evaluation. Patient was in full understanding of this plan. JESIKA Lord Cosigned by Duran Marmolejo MD at 02/09/2018 11:10 AM CDT documented in this encounter Miscellaneous Notes * Addendum Note - Davi Bernal MA - 02/08/2018 1:15 PM CDTAddended by: DAVI BERNAL on: 02/08/2018 02:25 PM Modules accepted: Orders * Addendum Note - Davi Bernal MA - 02/08/2018 1:15 PM CDTAddended by: DAVI BERNAL on: 02/08/2018 03:39 PM Modules accepted: Orders documented in this encounter Plan of Treatment Not on file documented as of this encounter Visit Diagnoses Diagnosis Aftercare following surgery- Primary Encounter for other specified aftercare S/P trigger finger release documented in this encounter Historical Medications * This list may reflect changes made after this encounter. meloxicam (MOBIC) 15 mg tabletIndications :Osteoarthritis Take 15 mg by mouth daily as needed for pain 12/26/2019 added in this encounter Care Teams Management Analyst Relationship Specialty Start Date End Date Arben Pak MD [address] [place] [address] PCP - General 02/16/17 03/06/20 documented as of this encounter
--- OUTSIDE RECORDS SUMMARY | 2024-10-13 16:14 | XMS_ITS | Encounter Summary ---
Author Organization [facility] Address [address] [place] [address] Care Team Providers Care Lining Scrubber Name Role Phone Arben Pak MD Primary Care Provider Encounter Details Date Type Department Care Team (Late st Contact Info) Description 12/28/2017 Telephone [facility] Orthopedics and Sports Medicine [address], [place] [address] Deborah Fallon RMA Social History Tobacco Use Types Packs/Day Years Used Date Smoking Tobacco: Never Smokeless Tobacco: Never Alcohol Use Standard Drinks/Week Comments Yes 0 (1 standard drink = 0.6 oz pur e alcohol) Comments Unknown Sex and Gender Information Value Date Recorded Sex Assigned at Not on file Legal Sex Female 1:15 AM [employer] Gender Identity Not on file Sexual Orientation Not on file documented as of this encounter Miscellaneous Notes * Telephone Encounter - Nisha Owen - 12/28/2017 3:18 PM CST Pt called back regarding post op call from Deborah. Pt stated she had no questions/concerns at this time. [facility] * Telephone Encounter - Deborah Fallon MA - 12/28/2017 3:12 PM CST Called patient to follow up after surgery and had to leave a message for her to call me back. [facility] [employer] documented in this encounter Plan of Treatment Not on file documented as of this encounter Visit Diagnoses Not on filedocumented in this encounter Care Teams Lining Scrubber Relationship Specialty Start Date End Date Arben Pak MD [address] [place] [address] PCP - General 02/16/17 03/06/20 documented as of this encounter
--- OUTSIDE RECORDS SUMMARY | 2024-10-13 16:14 | XMS_ITS | Encounter Summary ---
Author Organization [facility] Address [address] [place] [address] Care Team Providers Care Fitness Sales Associate Name Role Phone Petra Pak MD Primary Care Provider Reason for Visit * Reason Comments SVT Encounter Details Date Type Department Care Team (Latest Contact Info) Description 12/25/2019 11:17 AM SANDER OPERATOR - 12/26/2019 3:05 PM SANDER OPERATOR Hospital Encounter [facility] [address] [place] [address] Alecia Mendiola MD [address] [facility] [place] [address] Vel Benitez Jr., MD [address] [place] [address] [place] [address] Magui Schmid MD [address] [facility] [place] [address] Tachycardia (Primary Dx); Acute systolic congestive heart failure (CMS/HCC) Discharge Disposition: Discharge to home or self care Social History Tobacco Use Types Packs/Day Years Used Date Smoking Tobacco: Former Cigarettes 0.1 25 0 12/24/1993 - 12/24/2018 Smokeless Tobacco: Never Tobacco Cessation:Counseling Given: No Alcohol Use Standard Drinks/Week Comments Yes 0 [...] on file Legal Sex Female 1:15 AM SANDER OPERATOR Gender Identity Not on file Sexual Orientation Not on file documented as of this encounter Last Filed Vital Signs Vital Sign Reading Time Taken Comments Blood Pressure 114/60 12/26/2019 11:53 AM SANDER OPERATOR Pulse 77 12/26/2019 11:53 AM SANDER OPERATOR Temperature 36.3 ??C (97.3 ??F) 12/26/2019 1 1:53 AM SANDER OPERATOR Respiratory Rate 18 12/26/2019 11:5 3 AM SANDER OPERATOR Oxygen Saturation 100% 12/26/2019 11: 53 AM SANDER OPERATOR Inhaled Oxygen Concentration - - Weight 101.7 kg (224 lb 3.3 oz) 12/25/2019 2:30 PM SANDER OPERATOR Height 167.6 cm (5' 6 ) 12/25/2019 2:30 PM SANDER OPERATOR Body Mass Index 36.19 12/25/2019 2:30 PM SANDER OPERATOR documented in this encounter Discharge Diagnoses Diagnosis Unspecified atrial flutter (HCC) - UNSPECIFIED ATRIAL FLUTTER Acute systolic (congestive) heart failure (HCC) - ACUTE SYSTOLIC (CONGESTIVE) HEART FAILURE Morbid (severe) obesity due to excess calories (HCC) - MORBID (SEVERE) OBESITY DUE TO EXCESS CALORIES Body mass index (bmi) 36.0-36.9, adult - BODY MASS INDEX (BMI) 36.0-36.9, ADULT Personal history of nicotine dependence - PERSONAL HISTORY OF NICOTINE DEPENDENCE documented in this encounter Discharge Summaries * Magui Schmid MD - 12/26/2019 12:59 PM CST [place], [place] Hospitalist Discharge Summary Patient Name: Mervat Ruff Patient : 1965 Room/Bed: [id number] Admission Date/Time: 12/25/2019 11:17 AM Discharge date: 12/26/2019 Admitting Physician: Vel Benitez Jr., MD Discharge Physician: Magui Schmid MD Consults: Treatment Team: Consulting Physician: Magui Schmid MD Discharge Diagnoses: possible atrial flutter Acute systolic Congestive heart failure Morbid obesity HPI Patient is a 54 y.o. y/o female with no significant past medical history, was sent to ER by primarycare office for tachycardia.Please refer to H&P for further details. Hospital course: Possible atrial flutter: Sinus rhythm now. Cardiology was consulted, recommended Toprol-XL and oralanticoagulation. Echo showed normal ejection fraction. No further chest pain, patient is asymptomatic. Patient was advised to follow up with primary care physician in 1 week. Patient was advised not not to take caffeinated beverages. Patient was advised to follow up with Dr. Ospina in office in 4 weeks. Systolic Congestive Heart Failure : Acute: Patient was given a dose of lasix. Symptoms improving Morbid obesity : Counseled the patient about lifestyle modification Issues to be addressed with Primary Care or Other Outpatient Physician (Unresulted Labs, Repeat Testing, Medication Adjustments, etc) Follow-up with primary care physician in 1 week Discharge Exam: Vitals: 12/26/19 0438 12/26/19 0600 12/26/19 0710 12/26/19 1153 BP: 95/55 104/63 114/60 BP Location: Right arm Right arm Right arm Patient Position: Lying Lying Lying Pulse: 70 73 81 77 Resp: 16 18 18 Temp: 36.4 ??C (97.5 ??F) 36.4 ??C (97.5 ??F) 36.3 ??C (97.3 ??F) TempSrc: Temporal Temporal Temporal SpO2: 100% 96% 100% Weight: Height: Labs: (last 48 hours): Recent Results (from the past 48 hour(s)) Sepsis Lactate w/ Reflex Collection Time: 12/25/19 11:38 AM Result Value Ref Range Sepsis Lactate 1.0 0.7 - 2.0 mmol/L aPTT Collection Time: 12/25/19 11:38 AM Result Value Ref Range aPTT 30 25 - 37 sec CBC with auto differential Collection Time: 12/25/19 11:38 AM Result Value Ref Range WBC 10.3 (H) 3.8 - 9.9 K/cumm Hgb 11.8 (L) 11.9 - 15.5 g/dL Hct 37.6 35.6 - 45.5 % Plt 260 150 - 400 K/cumm MPV 10.0 9.1 - 12.3 fL RBC 3.88 (L) 3.90 - 5.20 M/cumm MCV 96.9 (H) 81.3 - 96.4 fL MCH 30.4 27.1 - 33.3 pg MCHC 31.4 (L) 32.3 - 35.7 g/dL RDW CV 14.9 11.1 - 14.9 % RDW SD 53.4 (H) 35.7 - 48.1 fL NRBC abs 0.00 0.00 - 0.01 K/cumm Comprehensive metabolic panel Collection Time: 12/25/19 11:38 AM Result Value Ref Range Sodium 139 135 - 145 mmol/L Potassium, pl 4.3 3.3 - 4.9 mmol/L Chloride 107 97 - 110 mmol/L CO2 24 22 - 32 mmol/L Anion gap 9 2 - 15 mmol/L BUN 13 8 - 25 mg/dL Creatinine 0.69 0.60 - 1.10 mg/dL Glucose 121 70 - 199 mg/dL Calcium 8.5 8.5 - 10.3 mg/dL Bilirubin, total 0.9 0.1 - 1.2 mg/dL Protein, pl 6.0 (L) 6.5 - 8.5 g/dL Albumin 3.8 3.5 - 5.0 g/dL Alk phos 69 40 - 130 Units/L ALT 24 7 - 45 Units/L AST 17 10 - 45 Units/L D-dimer, quantitative Collection Time: 12/25/19 11:38 AM Result Value Ref Range D-DIMER 592 (H) <=499 ng/mL FEU Magnesium Collection Time: 12/25/19 11:38 AM Result Value Ref Range Magnesium 1.8 1.4 - 2.5 mg/dL Pro B-type natriuretic peptide Collection Time: 12/25/19 11:38 AM Result Value Ref Range NT-proBNP 1,512 (H) <=300 pg/mL Protime-INR Collection Time: 12/25/19 11:38 AM Result Value Ref Range PT 12.2 9.5 - 13.0 sec INR 1.1 0.9 - 1.2 Troponin T Collection Time: 12/25/19 11:38 AM Result Value Ref Range Troponin T <0.01 0.00 - 0.01 ng/mL Differential, auto Collection Time: 12/25/19 11:38 AM Result Value Ref Range Neutrophil abs 8.1 (H) 1.7 - 6.5 K/cumm Imm gran abs 0.0 0.0 - 0.1 K/cumm Lymphocyte abs 1.5 0.8 - 3.3 K/cumm Monocyte abs 0.4 0.2 - 0.8 K/cumm Eosinophil abs 0.2 0.0 - 0.5 K/cumm Basophil abs 0.0 0.0 - 0.1 K/cumm Neutrophil pct 78.5 % Imm gran pct 0.4 % Lymphocyte pct 14.9 % Monocyte pct 4.0 % Eosinophil pct 1.7 % Basophil pct 0.5 % eGFR Collection Time: 12/25/19 11:38 AM Result Value Ref Range GFR 97 mL/min/1.73 m2 Influenza A/B and RSV PCR Nasopharyngeal Collection Time: 12/25/19 12:18 PM Result Value Ref Range Influenza A RNA Not Detected Not Detected Influenza B RNA Not Detected Not Detected RSV RNA Not Detected Not Detected Troponin T Collection Time: 12/25/19 3:55 PM Result Value Ref Range Troponin T <0.01 0.00 - 0.01 ng/mL Drugs of Abuse Screen, Urine without Confirmation Collection Time: 12/25/19 4:16 PM Result Value Ref Range Amphetamine, ur Not Detected CutOff 500ng/mL Barbiturates, ur Not Detected CutOff 200ng/mL Benzodiazepines, ur Detected (A) CutOff 100ng/mL Cannabinoids, ur Not Detected CutOff 50 ng/mL Cocaine, ur Not Detected CutOff 150ng/mL Fentanyl, Ur Not Detected Cutoff 1 ng/mL Methadone, ur Not Detected CutOff 300ng/mL Opiates, ur Not Detected CutOff 300ng/mL Oxycodone, ur Not Detected CutOff 100ng/mL Phencyclidine, ur Not Detected CutOff 25 ng/mL Urine Creatinine 7 mg/dL Troponin T Collection Time: 12/25/19 7:31 PM Result Value Ref Range Troponin T 0.04 (H) 0.00 - 0.01 ng/mL Troponin T Collection Time: 12/26/19 1:11 AM Result Value Ref Range Troponin T <0.01 0.00 - 0.01 ng/mL CBC with auto differential Collection Time: 12/26/19 6:17 AM Result Value Ref Range WBC 7.8 3.8 - 9.9 K/cumm Hgb 11.5 (L) 11.9 - 15.5 g/dL Hct 36.7 35.6 - 45.5 % Plt 263 150 - 400 K/cumm MPV 10.3 9.1 - 12.3 fL RBC 3.79 (L) 3.90 - 5.20 M/cumm MCV 96.8 (H) 81.3 - 96.4 fL MCH 30.3 27.1 - 33.3 pg MCHC 31.3 (L) 32.3 - 35.7 g/dL RDW CV 15.0 (H) 11.1 - 14.9 % RDW SD 54.1 (H) 35.7 - 48.1 fL NRBC abs 0.00 0.00 - 0.01 K/cumm Basic metabolic panel Collection Time: 12/26/19 6:17 AM Result Value Ref Range Sodium 141 135 - 145 mmol/L Potassium, pl 4.3 3.3 - 4.9 mmol/L Chloride 105 97 - 110 mmol/L CO2 27 22 - 32 mmol/L Anion gap 10 2 - 15 mmol/L BUN 13 8 - 25 mg/dL Creatinine 0.64 0.60 - 1.10 mg/dL Glucose 102 70 - 199 mg/dL Calcium 8.8 8.5 - 10.3 mg/dL Hemoglobin A1c Collection Time: 12/26/19 6:17 AM Result Value Ref Range Hgb A1C 5.2 4.0 - 5.6 % Estimated Average Glucose 103 mg/dL Troponin T Collection Time: 12/26/19 6:17 AM Result Value Ref Range Troponin T <0.01 0.00 - 0.01 ng/mL Differential, auto Collection Time: 12/26/19 6:17 AM Result Value Ref Range Neutrophil abs 5.4 1.7 - 6.5 K/cumm Imm gran abs 0.0 0.0 - 0.1 K/cumm Lymphocyte abs 1.5 0.8 - 3.3 K/cumm Monocyte abs 0.6 0.2 - 0.8 K/cumm Eosinophil abs 0.3 0.0 - 0.5 K/cumm Basophil abs 0.0 0.0 - 0.1 K/cumm Neutrophil pct 68.9 % Imm gran pct 0.5 % Lymphocyte pct 18.8 % Monocyte pct 7.2 % Eosinophil pct 4.0 % Basophil pct 0.6 % eGFR Collection Time: 12/26/19 6:17 AM Result Value Ref Range GFR 100 mL/min/1.73 m2 Radiology Chest xray Medications: Your medication list START taking these medications Instructions Last Dose Given Next Dose Due apixaban 5 mg tablet Commonly known as: ELIQUIS Take 1 tablet (5 mg total) by mouth every 12 (twelve) hours metoprolol XL 50 mg 24 hr tablet Commonly known as: TOPROL-XL Start taking on: December 27, 2019 Take 1 tablet (50 mg total) by mouth daily STOP taking these medications meloxicam 15 mg tablet Commonly known as: MOBIC Where to Get Your Medications You can get these medications from any pharmacy Bring a paper prescription for each of these medications ?? apixaban 5 mg tablet ?? metoprolol XL 50 mg 24 hr tablet Disposition:home Discharge Instructions: Activity Instructions Discharge activity: Resume normal activity As tolerated Diet Instructions Adult Discharge Diet Diet Type: Restrict salt intake to less than 2000 mg per day Other Instructions Call provider for: Temperature -Temperature greater than 101 degrees F Call provider for: difficulty breathing or chest pain Call provider for: extreme fatigue Call provider for: hives Call provider for: persistent dizziness or light-headedness Call provider for: persistent nausea or vomiting Call provider for: redness, tenderness, or signs of infection (pain, swelling, redness, odor or green/yellow discharge around incision site) Call provider for: severe uncontrolled pain Call provider for: headache, visual disturbances, weakness and speech changes Special Instructions Advised the patient to follow up with primary care physician in 1 week Pt was advised to follow-up with the ampoule filler and sealer in 4 weeks Patient was advised to avoid caffeinated beverages Patient was advised to come to the ER immediately if there is any chest pain or any palpitations orany focal deficits Follow-up Contact Information for Follow-ups Petra Pak MD Specialty: Cardiovascular Disease, Internal Medicine, Critical Care Med Relationship: PCP - General [facility] [place] [address] Next Steps: Follow up Petra Pak MD Specialty: Cardiovascular Disease, Internal Medicine, Critical Care Med [address] [place] [place] [address] Next Steps: Follow up Instructions: Patient was advised to follow up with primary care physician in 1 week Questions: Instructions for follow-up (appointment date and time): Patient was advised to follow up with primary care physician in 1 week To provider: PETRA PAK Process Instructions: The follow up with provider order should be used to give patients instructions to follow up with an established provider. A referral order should be placed to instruct patients to follow up with a new, non- established provider. If you can???t find the provider, please use: MISCELLANEOUS, NOTINFILE and put the name in the comments. Total time spent on day of discharge 35 minutes Discussed with the patient and patient's mother at bedside regarding the patient's condition and answered all questions they have today before discharge Signed: Magui Schmid MD Internal Medicine - Hospitalist [facility] - Adult Hospitalist Service 12/26/2019 12:59 PM Cc: Petra Pak MD Voice recognition software MPV Direct was used dictate and transcribe this document. Tape Recorder Mechanic variances may occur. Despite proofreading, typographical errors may occur ER OPERATOR ER OPERATOR documented in this encounter Discharge Instructions * Discharge Instructions* Karely Zavala, SUDEEP - 12/26/2019 2:02 PM SANDER OPERATOR Images from the original note were not included. Atrial Tachycardia WHAT YOU NEED TO KNOW: Atrial tachycardia is a condition that causes your heart to beat more than 100 times each minute. Atrial tachycardia is also called supraventricular tachycardia. It can develop because of problems with your heart's electrical system. Any of the following may also put you at risk for atrial tachycardia: ?? A heart condition, hypertension, or fatigue ?? Anxiety, stress, or pain ?? Large amounts of caffeine from coffee, tea, and energy drinks ?? Heavy alcohol use or cigarette smoking ?? Use of some medicines or street drugs DISCHARGE INSTRUCTIONS: Call 911 or have someone call if: ?? You have any of the following signs of a heart attack: ?? Squeezing, pressure, or pain in your chest that lasts longer than a few minutes. Chest pain may come and go. ?? Pain in your jaw, neck, one or both arms, upper and lower back, or stomach. ?? Shortness of breath, or panting ?? Nausea or vomiting ?? Lightheadedness ?? You cannot be woken. Contact your healthcare provider if: ?? Your pulse is faster than your healthcare provider said it should be. ?? You have frequent periods of a fast heart rate. ?? You feel weak or dizzy. ?? You have questions or concerns about your condition or care. Medicines: You may be given any of the following: ?? Antiarrhythmia medicines help keep your heartbeat in a regular rhythm. ?? Beta blockers help slow your heartbeat and keep it in a regular rhythm. ?? Calcium channel blockers help slow your heartbeat. ?? Blood thinners help prevent blood clots. Clots can lead to stroke, heart attack, and . Aspirin is a type of blood thinner. You may need to take an aspirin each day to help prevent blood clots. Do not take acetaminophen or ibuprofen instead. Do not take more or less aspirin than healthcare providers say to take. If you are on other blood thinner medicine, ask your healthcare provider before you take aspirin for any reason. ?? Take your medicine as directed. Contact your healthcare provider if you think your medicine is not helping or if you have side effects. Tell him or her if you are allergic to any medicine. Keep a list of the medicines, vitamins, and herbs you take. Include the amounts, and when and why you take them. Bring the list or the pill bottles to follow-up visits. Carry your medicine list with you in case of an emergency. Follow up with your healthcare provider or ampoule filler and sealer as directed: You may need more tests. [place] your questions so you remember to ask them during your visits. Prevention and Management: ?? Decrease the amount of caffeine you drink. Caffeine can increase your heart rate. ?? Limit or do not drink alcohol. Alcohol can increase your heart rate. Ask your healthcare provider if it is safe for you to drink alcohol. Also ask how much is safe for you to drink. ?? Do not smoke. Nicotine and other chemicals in cigarettes can cause damage to your heart. Ask your healthcare provider for information if you currently smoke and need help to quit. E-cigarettes or smokeless tobacco still contain nicotine. Talk to your healthcare provider before you use these products. ?? Do not use illegal drugs. Drugs such as meth and cocaine can increase your heart rate. Talk to your healthcare provider if you use illegal drugs and need help to quit. ?? Get more rest. Fatigue can cause your heart rate to increase. ?? Learn ways to cope with stress. Stress, fear, and anxiety can cause a fast heart rate. Your healthcare provider may recommend relaxation techniques and deep breathing exercises. Your healthcare provider may recommend you talk to someone about your stress or anxiety, such as a counselor or a trusted friend. Check your pulse as directed: Your healthcare provider will show you how to check your pulse, and how often to check it. Write down how fast your pulse is and if it feels regular or like it is skipping beats. Also write down the activity you were doing if your heart rate is above 100. Bring the information with you to your follow-up appointment. ?? 2017 [employer] Information is for End User's use only and may not be sold, redistributed or otherwise used for commercial purposes. All illustrations and images included in CareNotes?? are the copyrighted property of [employer]. or [employer] website. The above information is an learning support aide only. It is not intended as medical advice for individual conditions or treatments. Talk to your doctor, nurse or pharmacist before following any medical regimen to see if it is safe and effective for you. ER OPERATOR * Discharge Instr - Other Orders* Karely Zavala, RN - 12/26/2019 2:01 PM SANDER OPERATOR THANK YOU for choosing our team to provide your health care. Your HEALTH AND SAFETY are important to us. We hope you feel your care on IMU was ALWAYS EXCELLENT! Please call IMU at [phone] if you have any questions regarding your care. Wishing you continued improvement during your recovery. Your Intermediate Care Unit Team ER OPERATOR * Attachments The following attachments cannot be sent through Care Everywhere. * Apixaban (By mouth) (Samoan) * Metoprolol (By mouth) (Samoan) documented in this encounter Medications at Time of Discharge apixaban (ELIQUIS) 5 mg tabletIndications: atrial fibrillation Take 1 tablet (5 mg total) by mouth every 12 (twelve) hours 60 tablet 12/26/2019 01/22/2020 metoprolol XL (TOPROL-XL) 50 mg 24 hr tablet Take 1 tablet (50 mg total) by mouth daily 30 tablet 12/27/2019 01/22/2020 documented as of this encounter Ordered Prescriptions Prescription Sig Dispense Quantity Refills Last Filled Start Date End Date metoprolol XL (TOPROL-XL) 50 mg 24 hr tablet Take 1 tablet (50 mg total) by mouth daily 30 tablet 12/27/2019 01/22/2020 apixaban (ELIQUIS) 5 mg tabletIndications: atrial fibrillation Take 1 tablet (5 mg total) by mouth every 12 (twelve) hours 60 tablet 12/26/2019 01/22/2020 documented in this encounter Discharge Disposition Disposition Code Departure Means Destination Discharge to home or self care documented in this encounter Progress Notes * Mia Pathak, SUDEEP - 12/26/2019 12:02 PM CST 12/26/19 1200 Information Information Obtained From Patient Referral Data Referral Source Self referral Referral Reason Discharge Planning Prior to Admission Primary Caregiver Self Support System Spouse/Significant Other;Family members Home Care Services No Durable Medical Equipment None Living Arrangements Spouse/significant other Type of Residence Private residence Steps in home? 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 Her is only home on the weekends due to work. She is independent with mobility and adls. She works. No devices used. No barriers to returning home at discharge. ER OPERATOR * Mia Pathak RN - 12/26/2019 12:00 PM CST 12/26/19 1200 Basic Mobility - 6 Click How much difficulty does the patient have: Turning over in bed 4 How much difficulty does the patient currently have: Sitting down and standing up from a chair witharms? 4 How much difficulty does the patient have: Moving from lying on back to sitting on the side of the bed? 4 How much difficulty does the patient have: Moving to and from a bed to a chair including wheelchair? 4 How much help does the patient currently need: Walk in hospital room? 4 How much help from another person does the patient currently need: Climbing 3-5 steps with a railing? 4 Total Score (range 6-24) 24 ER OPERATOR * Vel Camacho DO - 12/26/2019 7:08 AM CST Images from the original note were not included. Cardiology progress note Admit date: 12/25/2019 Reason for Consultation: SVT History of Present Illness: Mervat Ruff is a 54 y.o. female who arrived to the ED today via EMS. Per EMS, pt was in SVT with a rate of 175-180. Pt was given 2 doses of adenosine en route with no resolve. EMS then gave versed to pateint and cardioverted with one attempt. Patient reports being asymptomatic other than the recognition of palpitations. Patient was given adenosine and atrial flutter was identified. Patient was subsequently DC cardioverted with 100 joules to sinus rhythm. Pre corrected electrocardiograms are not available for my review 12/26/19 voices no new concerns. No recurrence of tachyarrhythmia. Breathing improved. Past Medical History: Diagnosis Date ??? Arthritis osteoarthritis bilateral knees ??? HX OTHER MEDICAL Headache, migraine Past Surgical History: Procedure Laterality Date ??? APPENDECTOMY 2001 ??? SECTION 1996 section ??? HYSTERECTOMY 2011 ??? JOINT REPLACEMENT ??? KNEE ARTHROSCOPY Bilateral 2019 Allergies Allergen Reactions ??? Latex Other (See comments) and Rash When wears latex herself Reaction: Rash, ??? Penicillins Other (See comments) and Rash As a child / has had penicillin since then with no problems Reaction: Rash, Patient Vitals for the past 24 hrs: BP Temp Temp src Pulse Resp SpO2 Height Weight 12/26/19 0438 95/55 36.4 ??C (97.5 ??F) Temporal 70 16 100 % -- -- 12/26/19 0400 -- -- -- 69 -- -- -- -- 12/26/19 0200 -- -- -- 66 -- -- -- -- 12/26/19 0000 -- -- -- 69 -- -- -- -- 12/25/19 2253 95/55 36.8 ??C (98.2 ??F) Temporal 77 16 95 % -- -- 12/25/19 2200 -- -- -- 83 -- -- -- -- 12/25/191999 -- -- -- 93 -- -- -- -- 12/25/19 1917 103/57 37.2 ??C (99 ??F) Temporal 94 16 95 % -- -- 12/25/19 1800 -- -- -- 108 -- -- -- -- 12/25/19 1736 121/60 -- -- 95 -- -- -- -- 12/25/19 1615 -- -- -- 98 -- -- -- -- 12/25/19 1600 -- -- -- 99 -- -- -- -- 12/25/19 1524 116/66 36.4 ??C (97.6 ??F) Temporal 100 18 98 % -- -- 12/25/19 1430 127/86 -- -- 103 19 100 % 167.6 cm (5' 6 ) 101.7 kg (224 lb 3.3 oz) 12/25/19 1415 123/82 -- -- 103 20 100 % -- -- 12/25/19 1130 118/79 -- -- 107 23 98 % -- -- 12/25/19 1126 -- -- -- -- -- -- 167.6 cm (5' 6 ) 98.9 kg (218 lb) 12/25/19 1124 134/63 37.2 ??C (99 ??F) Temporal 106 19 100 % -- -- Intake/Output Summary (Last 24 hours) at 12/26/2019 0708 Last data filed at 12/25/2019 2255 Gross per 24 hour Intake 2410 ml Output 1225 ml Net 1185 ml Wt Readings from Last 3 Encounters: 12/25/19 101.7 kg (224 lb 3.3 oz) 02/08/18 100.2 kg (221 lb) 01/07/18 100.2 kg (221 lb) Cardiac Rhythm: Normal sinus rhythm (12/26/19 0400) Physical Exam: General: Well developed, well nourished, in no acute distress, oriented to person, place, and time. Skin: Warm and dry Head: Normocephalic, oral mucosa and conjunctivae normal Neck: No thyromegaly or bruits. Carotid pulses 2+ Lungs: Clear to auscultation and percussion. Respirations unlabored Cardiac: PMI and JVP normal, S1 and S2 normal, no murmur, no gallop or rub Abd: Soft, nontender, BS active, no hepatosplenomegaly or masses, no abdominal bruit or enlarged aortic pulsation Extremities: No clubbing, cyanosis. No edema. Femoral pulses 2+. Pedal pulses 2+ Musculoskeletal: Muscle strength normal. No scoliosis. Neurologic: Oriented to person, place, and time. Mood not depressed. Review of System: Constitutional: Negative for fever, chills, malaise/fatigue, and diaphoresis. Psychiatric: Negative for depression and anxiety. Skin: Negative for rash and itching. HENT: Negative for headaches, lightheadedness, and congestion. Negative for vertigo. Eyes: Negative for blurred vision and itching. Cardiovascular: Negative for chest pain, Negative for palpitations and syncope. Respiratory: Negative for cough and sputum production. Negative for shortness of breath. Gastrointestinal: Negative for nausea, vomiting, abdominal pain and diarrhea. Musculoskeletal: Negative for muscle weakness, extremity redness or swelling. Neurological: Negative for dizziness, focal weakness, tremors, and loss of consciousness. Family History Problem Relation Age of Onset ??? Cancer Mother ??? Diabetes Father ??? Gout Father ??? Heart disease Father ??? Diabetes Maternal Grandmother ??? Heart disease Maternal Grandmother ??? COPD Paternal Grandmother Social History Socioeconomic History ??? Marital status: Spouse name: None ??? Number of children: None ??? Years of education: None ??? Highest education level: None Occupational History ??? None Social Needs ??? Financial resource strain: None ??? Food insecurity Worry: None Inability: None ??? Transportation needs Medical: None Non-medical: None Tobacco Use ??? Smoking status: Former Smoker Packs/day: 0.05 Years: 25.00 Pack years: 1.25 Types: Cigarettes Start date: 12/24/1993 Last attempt to quit: 12/24/2018 Years since quittin.0 ??? Smokeless tobacco: Never Used Substance and Sexual Activity ??? Alcohol use: Yes Frequency: Monthly or less ??? Drug use: Never ??? Sexual activity: Yes Partners: Male control/protection: Hysterectomy Lifestyle ??? Physical activity Days per week: None Minutes per session: None ??? Stress: None Relationships ??? Social connections Talks on phone: None Gets together: None Attends nondenominational service: None Active member of club or organization: None Attends meetings of clubs or organizations: None Relationship status: None ??? Intimate partner violence Fear of current or ex partner: None Emotionally abused: None Physically abused: None Forced sexual activity: None Other Topics Concern ??? None Social History Narrative ??? None Prior to Admission medications Medication Sig Start Date End Date Taking? Authorizing Provider meloxicam (MOBIC) 15 mg tablet Take 15 mg by mouth. Historical Provider, Recent Labs Lab Units 12/26/19 0111 12/25/19 1931 12/25/19 1555 TROPONIN T ng/mL <0.01 0.04* <0.01 Recent Labs Lab Units 12/25/19 1138 SODIUM mmol/L 139 POTASSIUM PLASMA mmol/L 4.3 CHLORIDE mmol/L 107 CO2 mmol/L 24 BUN SERUM mg/dL 13 CREATININE mg/dL 0.69 [id number] mL/min/1.73 m2 97 GLUCOSE mg/dL 121 CALCIUM mg/dL 8.5 ALBUMIN g/dL 3.8 Recent Labs Lab Units 12/25/19 1138 ALK PHOS Units/L 69 BILIRUBIN TOTAL mg/dL 0.9 TOTAL PROTEIN g/dL 6.0* ALT Units/L 24 AST Units/L 17 Recent Labs Lab Units 12/26/19 0617 12/25/19 1138 WBC K/cumm 7.8 10.3* HEMOGLOBIN g/dL 11.5* 11.8* HEMATOCRIT % 36.7 37.6 PLATELETS K/cumm 263 260 Recent Labs Lab Units 12/25/19 1138 INR 1.1 Lab Results Component Value Date TSH 2.20 01/11/2017 FREET4 1.1 01/11/2017 No results found for: CHOL, TRIG, HDL, LDLCALC Lab Results Lab Value Date/Time TROPONINT <0.01 12/26/2019 0111 TROPONINT 0.04 (H) 12/25/2019 1931 TROPONINT <0.01 12/25/2019 1555 TROPONINT <0.01 12/25/2019 1138 Telemetry: Cardiac Rhythm: Normal sinus rhythm (12/26/19 0400) No results found for this or any previous visit. Radiology Testing: Xr Chest 1 View Result Date: 12/25/2019 Mild left lower lung airspace disease. Differential includes edema, pneumonia, and atelectasis. Electronically signed by: Qamar Rapp M.D. Cardiology Testing: ProBNP: 12/25/2019 NT-proBNP 1,512 (H) EK12/25/2019 Echocardiogram Impression: 1. SVT, likely atrial flutter 2. CHF secondary to 1. 3. Abnormal glucose Plan: 1. Toprol XL 50 mg daily 2. If echocardiogram reveals well-preserved left ventricular performance, patient okay for discharge on beta-danna and anticoagulation. CC: MD Magui Vicente MD ER OPERATOR ER OPERATOR documented in this encounter H&P Notes * Magui Schmid MD - 12/25/2019 3:30 PM CST [facility] Adult Hospitalist Service History and Physical Patient Name: Mervat Ruff Patient : 1965 Age/Sex: 54 y.o. female Room/Bed: [place] [address]/[place] [address] Admission Date/Time: 12/25/2019 11:17 AM Date: 12/25/2019 Time: 3:30 PM Primary Care Physician: Petra Pak MD PCP Office Location: [address] [place] [address] PCP Chief Complaint: Chest tightness and shortness of breath HPI: Patient is a 54 y.o. y/o female with no significant past medical history, was sent to ER by primarycare office for tachycardia. Complaining of some chest tightness radiating to her back and shortness of breath for the last 2 days, she went to primary care office today for evaluation. Patient was found to be in tachycardia heart rate was around 180 they called the EMS to transfer the patient to ER. When EMS saw patient was in SVT adenosine was given to the patient without much response. The patient was found to be in atrial flutter patient was given amiodarone and Versed patient was cardioverted to sinus rhythm. Patient was admitted for further management cardiology was consulted. I saw thepatient patient mentioned that she feels better now. Patient denies any cough any phlegm. Patient denies any fever or chills. Patient denies any headache or any focal neurological deficits. Patient denies any palpitations. Patient denies any recent travel. 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 Patient denies any alcohol or tobacco use. Denies any drug abuse. Patient mentioned that she drinks lots of caffeine and Gatorade. Review of Systems: Ten systems reviewed, all others negative except those listed in H&P Past Medical History: Past Medical History: Diagnosis Date ??? HX OTHER MEDICAL Headache, migraine Past Surgical History: Past Surgical History: Procedure Laterality Date ??? SECTION 1996 section Family History: Family History Family history unknown: Yes Social History: Social History Tobacco Use ??? Smoking status: Never Smoker ??? Smokeless tobacco: Never Used Substance Use Topics ??? Alcohol use: Yes Allergies: Allergies Allergen Reactions ??? Latex Other (See comments) and Rash When wears latex herself Reaction: Rash, ??? Penicillins Other (See comments) and Rash As a child / has had penicillin since then with no problems Reaction: Rash, Home Medications: Medications Prior to Admission Medication Sig Dispense Refill Last Dose ??? meloxicam (MOBIC) 15 mg tablet Take 15 mg by mouth. Not Taking Objective: Vitals: Patient Vitals for the past 24 hrs: Patient Vitals for the past 24 hrs: BP Temp Temp src Pulse Resp SpO2 Height Weight 12/25/19 1524 116/66 36.4 ??C (97.6 ??F) Temporal 100 18 98 % -- -- 12/25/19 1430 127/86 -- -- 103 19 100 % 167.6 cm (5' 6 ) 101.7 kg (224 lb 3.3 oz) 12/25/19 1415 123/82 -- -- 103 20 100 % -- -- 12/25/19 1130 118/79 -- -- 107 23 98 % -- -- 12/25/19 1126 -- -- -- -- -- -- 167.6 cm (5' 6 ) 98.9 kg (218 lb) 12/25/19 1124 134/63 37.2 ??C (99 ??F) Temporal 106 19 100 % -- -- Physical Exam: physical Exam Constitutional: pt is oriented to person, place, and time , and in no distress. HENT: Head: Normocephalic. Eyes: Pupils are equal, round, and reactive to light. EOM are normal. Neck: Normal range of motion. No JVD present. Cardiovascular: S1-S2 heard Pulmonary/Chest: Effort normal and breath sounds normal. Abdominal: Soft, nontender. Bowel sounds present Musculoskeletal: Normal range of motion, no edema Neurological: patient is alert and oriented to person, place, and time. No cranial nerve deficit. Skin: Skin is dry. No rash noted. Psychiatric: Affect and judgment normal. Laboratory Results: Recent Results (from the past 24 hour(s)) Sepsis Lactate w/ Reflex Collection Time: 12/25/19 11:38 AM Result Value Ref Range Sepsis Lactate 1.0 0.7 - 2.0 mmol/L aPTT Collection Time: 12/25/19 11:38 AM Result Value Ref Range aPTT 30 25 - 37 sec CBC with auto differential Collection Time: 12/25/19 11:38 AM Result Value Ref Range WBC 10.3 (H) 3.8 - 9.9 K/cumm Hgb 11.8 (L) 11.9 - 15.5 g/dL Hct 37.6 35.6 - 45.5 % Plt 260 150 - 400 K/cumm MPV 10.0 9.1 - 12.3 fL RBC 3.88 (L) 3.90 - 5.20 M/cumm MCV 96.9 (H) 81.3 - 96.4 fL MCH 30.4 27.1 - 33.3 pg MCHC 31.4 (L) 32.3 - 35.7 g/dL RDW CV 14.9 11.1 - 14.9 % RDW SD 53.4 (H) 35.7 - 48.1 fL NRBC abs 0.00 0.00 - 0.01 K/cumm Comprehensive metabolic panel Collection Time: 12/25/19 11:38 AM Result Value Ref Range Sodium 139 135 - 145 mmol/L Potassium, pl 4.3 3.3 - 4.9 mmol/L Chloride 107 97 - 110 mmol/L CO2 24 22 - 32 mmol/L Anion gap 9 2 - 15 mmol/L BUN 13 8 - 25 mg/dL Creatinine 0.69 0.60 - 1.10 mg/dL Glucose 121 70 - 199 mg/dL Calcium 8.5 8.5 - 10.3 mg/dL Bilirubin, total 0.9 0.1 - 1.2 mg/dL Protein, pl 6.0 (L) 6.5 - 8.5 g/dL Albumin 3.8 3.5 - 5.0 g/dL Alk phos 69 40 - 130 Units/L ALT 24 7 - 45 Units/L AST 17 10 - 45 Units/L D-dimer, quantitative Collection Time: 12/25/19 11:38 AM Result Value Ref Range D-DIMER 592 (H) <=499 ng/mL FEU Magnesium Collection Time: 12/25/19 11:38 AM Result Value Ref Range Magnesium 1.8 1.4 - 2.5 mg/dL Pro B-type natriuretic peptide Collection Time: 12/25/19 11:38 AM Result Value Ref Range NT-proBNP 1,512 (H) <=300 pg/mL Protime-INR Collection Time: 12/25/19 11:38 AM Result Value Ref Range PT 12.2 9.5 - 13.0 sec INR 1.1 0.9 - 1.2 Troponin T Collection Time: 12/25/19 11:38 AM Result Value Ref Range Troponin T <0.01 0.00 - 0.01 ng/mL Differential, auto Collection Time: 12/25/19 11:38 AM Result Value Ref Range Neutrophil abs 8.1 (H) 1.7 - 6.5 K/cumm Imm gran abs 0.0 0.0 - 0.1 K/cumm Lymphocyte abs 1.5 0.8 - 3.3 K/cumm Monocyte abs 0.4 0.2 - 0.8 K/cumm Eosinophil abs 0.2 0.0 - 0.5 K/cumm Basophil abs 0.0 0.0 - 0.1 K/cumm Neutrophil pct 78.5 % Imm gran pct 0.4 % Lymphocyte pct 14.9 % Monocyte pct 4.0 % Eosinophil pct 1.7 % Basophil pct 0.5 % eGFR Collection Time: 12/25/19 11:38 AM Result Value Ref Range GFR 97 mL/min/1.73 m2 Influenza A/B and RSV PCR Nasopharyngeal Collection Time: 12/25/19 12:18 PM Result Value Ref Range Influenza A RNA Not Detected Not Detected Influenza B RNA Not Detected Not Detected RSV RNA Not Detected Not Detected Radiology: Xr Chest 1 View Result Date: 12/25/2019 Narrative: EXAMINATION: XR CHEST 1 VIEW. TECHNIQUE: AP chest radiograph HISTORY: Tachycardia and chest pain today with cough and shortness of breath COMPARISON: None FINDINGS: Mild left lower lung airspace disease. Right lung is clear. No pneumothorax or large pleural effusion. Heart is enlarged. Impression: Mild left lower lung airspace disease. Differential includes edema, pneumonia, and atelectasis. Electronically signed by: Qamar Rapp M.D. Ct Chest Pe W Contrast Result Date: 12/25/2019 Narrative: EXAMINATION: CT CHEST PE W CONTRAST ORDERING HEALTHCARE PROVIDER: ALECIA EMNDIOLA HISTORY: PE suspected, intermediate prob, positive D- dimer. seen at PCP today. pt was tachycardicin the office. pt c/o increased SOB, onset yesterday. COMPARISON: None available TECHNIQUE: CT chest by PE protocol with intravenous contrast administration. MIP images obtained. All images stored onPACS. Automated exposure control was used as a dose optimization technique for this examination. CONTRAST TYPE/DOSE: 125 mL Optiray 350 left antecubital fossa IV FINDINGS: VASCULATURE: There is no pulmonary embolism. The thoracic aorta is normal in caliber without evidence of dissection. HEART: Normal heart size without pericardial effusion. MEDIASTINUM/ERA: No mediastinal mass. No abnormal lymph nodes by size criteria. LUNGS/PLEURA: Interlobular septal thickening in the lower lobes as evidence of interstitial edema with groundglass opacities and small bilateral pleural effusions. No focal airspace consolidation. AXILLA: No adenopathy. CHEST WALL: No masses. HARDWARE/LINES/TUBES: None. UPPER ABDOMEN: Grossly normal appearance. MUSCULOSKELETAL: No acute findings. OTHER: No other acute findings. Impression: 1. No pulmonary embolism. 2. Evidence of interstitial the lung bases with small pleural effusions. Ground glass opacities also likely reflect edema. Electronically signed by: Mathieu Tompkins M.D. ASSESSMENT AND PLAN: Possible atrial flutter Morbid obesity Plan Cardiology was consulted CT of the chest is negative for any PE, mild pulmonary edema noted Will give a dose of Lasix Will Monitor troponins Will get Echo Flu and RSV was negative GI and DVT prophylaxis Will get a urine drug screen Code status patient wants to be full code Expected LOS: Patient needs more than 2 inpatient hospitalization with present MDM: Tre Schmid MD Internal Medicine - Hospitalist [facility] - Adult Hospitalist Service Voice recognition software MPV Direct was used dictate and transcribe this document. Tape Recorder Mechanic variances may occur. Despite proofreading, typographical errors may occur CC: Petra Pak MD ER OPERATOR ER OPERATOR documented in this encounter Consult Notes * Vel Camacho DO - 12/25/2019 4:00 PM CSTAssociated Order(s): IP CONSULT TO CARDIOLOGY Images from the original note were not included. Cardiology Consultation note Admit date: 12/25/2019 Reason for Consultation: SVT History of Present Illness: Mervat Ruff is a 54 y.o. female who arrived to the ED today via EMS. Per EMS, pt was in SVT with a rate of 175-180. Pt was given 2 doses of adenosine en route with no resolve. EMS then gave versed to pateint and cardioverted with one attempt. Patient reports being asymptomatic other than the recognition of palpitations. Patient was given adenosine and atrial flutter was identified. Patient was subsequently DC cardioverted with 100 joules to sinus rhythm. Pre corrected electrocardiograms are not available for my review Past Medical History: Diagnosis Date ??? HX OTHER MEDICAL Headache, migraine Past Surgical History: Procedure Laterality Date ??? SECTION 1995 section Allergies Allergen Reactions ??? Latex Other (See comments) and Rash When wears latex herself Reaction: Rash, ??? Penicillins Other (See comments) and Rash As a child / has had penicillin since then with no problems Reaction: Rash, Patient Vitals for the past 24 hrs: BP Temp Temp src Pulse Resp SpO2 Height Weight 12/25/19 1524 116/66 36.4 ??C (97.6 ??F) Temporal 100 18 98 % -- -- 12/25/19 1430 127/86 -- -- 103 19 100 % 167.6 cm (5' 6 ) 101.7 kg (224 lb 3.3 oz) 12/25/19 1415 123/82 -- -- 103 20 100 % -- -- 12/25/19 1130 118/79 -- -- 107 23 98 % -- -- 12/25/19 1126 -- -- -- -- -- -- 167.6 cm (5' 6 ) 98.9 kg (218 lb) 12/25/19 1124 134/63 37.2 ??C (99 ??F) Temporal 106 19 100 % -- -- No intake or output data in the 24 hours ending 12/25/19 1600 Wt Readings from Last 3 Encounters: 12/25/19 101.7 kg (224 lb 3.3 oz) 02/08/18 100.2 kg (221 lb) 01/07/18 100.2 kg (221 lb) Cardiac Rhythm: Atrial flutter(SVT TRANSPORTATION OPERATIONS MANAGER) (12/25/19 1133) Physical Exam: General: Well developed, well nourished, in no acute distress, oriented to person, place, and time. Skin: Warm and dry Head: Normocephalic, oral mucosa and conjunctivae normal Neck: No thyromegaly or bruits. Carotid pulses 2+ Lungs: Clear to auscultation and percussion. Respirations unlabored Cardiac: PMI and JVP normal, S1 and S2 normal, no murmur, no gallop or rub Abd: Soft, nontender, BS active, no hepatosplenomegaly or masses, no abdominal bruit or enlarged aortic pulsation Extremities: No clubbing, cyanosis. No edema. Femoral pulses 2+. Pedal pulses 2+ Musculoskeletal: Muscle strength normal. No scoliosis. Neurologic: Oriented to person, place, and time. Mood not depressed. Review of System: Constitutional: Negative for fever, chills, malaise/fatigue, and diaphoresis. Psychiatric: Negative for depression and anxiety. Skin: Negative for rash and itching. HENT: Negative for headaches, lightheadedness, and congestion. Negative for vertigo. Eyes: Negative for blurred vision and itching. Cardiovascular: Negative for chest pain, Negative for palpitations and syncope. Respiratory: Negative for cough and sputum production. Negative for shortness of breath. Gastrointestinal: Negative for nausea, vomiting, abdominal pain and diarrhea. Musculoskeletal: Negative for muscle weakness, extremity redness or swelling. Neurological: Negative for dizziness, focal weakness, tremors, and loss of consciousness. Family History Family history unknown: Yes Social History Socioeconomic History ??? Marital status: Spouse name: None ??? Number of children: None ??? Years of education: None ??? Highest education level: None Occupational History ??? None Social Needs ??? Financial resource strain: None ??? Food insecurity Worry: None Inability: None ??? Transportation needs Medical: None Non-medical: None Tobacco Use ??? Smoking status: Never Smoker ??? Smokeless tobacco: Never Used Substance and Sexual Activity ??? Alcohol use: Yes ??? Drug use: None ??? Sexual activity: None Lifestyle ??? Physical activity Days per week: None Minutes per session: None ??? Stress: None Relationships ??? Social connections Talks on phone: None Gets together: None Attends nondenominational service: None Active member of club or organization: None Attends meetings of clubs or organizations: None Relationship status: None ??? Intimate partner violence Fear of current or ex partner: None Emotionally abused: None Physically abused: None Forced sexual activity: None Other Topics Concern ??? None Social History Narrative ??? None Prior to Admission medications Medication Sig Start Date End Date Taking? Authorizing Provider meloxicam (MOBIC) 15 mg tablet Take 15 mg by mouth. Historical Provider, Recent Labs Lab Units 12/25/19 1138 TROPONIN T ng/mL <0.01 Recent Labs Lab Units 12/25/19 1138 SODIUM mmol/L 139 POTASSIUM PLASMA mmol/L 4.3 CHLORIDE mmol/L 107 CO2 mmol/L 24 BUN SERUM mg/dL 13 CREATININE mg/dL 0.69 [id number] mL/min/1.73 m2 97 GLUCOSE mg/dL 121 CALCIUM mg/dL 8.5 ALBUMIN g/dL 3.8 Recent Labs Lab Units 12/25/19 1138 ALK PHOS Units/L 69 BILIRUBIN TOTAL mg/dL 0.9 TOTAL PROTEIN g/dL 6.0* ALT Units/L 24 AST Units/L 17 Recent Labs Lab Units 12/25/19 1138 WBC K/cumm 10.3* HEMOGLOBIN g/dL 11.8* HEMATOCRIT % 37.6 PLATELETS K/cumm 260 Recent Labs Lab Units 12/25/19 1138 INR 1.1 Lab Results Component Value Date TSH 2.20 01/11/2017 FREET4 1.1 01/11/2017 No results found for: CHOL, TRIG, HDL, LDLCALC Lab Results Lab Value Date/Time TROPONINT <0.01 12/25/2019 1138 Telemetry: Cardiac Rhythm: Atrial flutter(SVT TRANSPORTATION OPERATIONS MANAGER) (12/25/19 1133) No results found for this or any previous visit. Radiology Testing: Xr Chest 1 View Result Date: 12/25/2019 Mild left lower lung airspace disease. Differential includes edema, pneumonia, and atelectasis. Electronically signed by: Qamar Rapp M.D. Cardiology Testing: ProBNP: 12/25/2019 NT-proBNP 1,512 (H) EK12/25/2019 Impression: 1. SVT, likely atrial flutter 2. CHF secondary to 1. 3. Abnormal glucose Plan: 1. Toprol XL 100 mg daily 2. Will review echocardiogram 3. Oral anticoagulation 4. Will obtain outpatient ECGs 5. Hemoglobin A1c CC: MD Vel Vicente Jr., MD ER OPERATOR documented in this encounter Nursing Notes * Conchis Nesbitt RN - 12/26/2019 3:05 PM CST Patient and were read discharge instructions. All questions were answered at this time. Patient left via wheelchair to private auto to home with at 1505. ER OPERATOR documented in this encounter ED Notes * Alecia Mendiola MD - 12/25/2019 1:49 PM CSTAssociated Order(s): ECG 12 lead HPI Chief Complaint Patient presents with ??? SVT 11:16 AM 12/25/2019 Mervat Ruff is a 54 y.o. F with a history of migraines, presenting to the ED, complaining of palpitations onset yesterday. She reports mild shortness of breath and chest tightness radiating to herback. She states that the pain was worse when bending over and began to radiate to her neck. She also notes that she felt like she was hyperventilating. She initially attributed her symptoms to a cold. 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 She also reports a headache, nausea, chills, and fatigue. She states that her symptoms worsened, prompting her to seek further evaluation from Dr. Pak, PCP. Patient states that her symptoms were alleviated with cardioversion performed by EMS en route to the ED. No other alleviating or exacerbating factors. She denies any fevers. She denies any recent travel. No history of cardiac disease, hypertension, or diabetes. EMS states that they were called to Dr. Pak's office for tachycardia. On arrival at the scene, patient's pulse was 180 and was found to be in SVT. Patient was given Adenosine en route to the ED, which allowed EMS to see that the patient was in atrial flutter. EMS then gave the patient Amnioderoneand Versed and the patient was cardioverted. After cardioversion, patient was in sinus rhythm, witha pulse in the 100s. PCP: Pasha Patient History There are no active problems to display for this patient. Past Medical History: Diagnosis Date ??? Arthritis osteoarthritis bilateral knees ??? HX OTHER MEDICAL Headache, migraine Past Surgical History: Procedure Laterality Date ??? APPENDECTOMY 2002 ??? SECTION 1996 section ??? HYSTERECTOMY 2011 [...] Last attempt to quit: 12/24/2018 Years since quittin.0 ??? Smokeless tobacco: Never Used Substance Use Topics ??? Alcohol use: Yes Frequency: Monthly or less ??? Drug use: Never Social History Social History Narrative ??? Not on file Review of Systems Review of Systems Constitutional: Positive for chills and fatigue. Negative for fever. HENT: Negative for congestion, rhinorrhea and sore throat. Eyes: Negative for pain. Respiratory: Positive for chest tightness and shortness of breath. Negative for cough. Cardiovascular: Positive for palpitations. Negative for chest pain and leg swelling. Gastrointestinal: Positive for nausea. Negative for abdominal pain, diarrhea and vomiting. Genitourinary: Negative for difficulty urinating. Musculoskeletal: Positive for back pain and neck pain. Negative for myalgias. Skin: Negative for rash. Neurological: Positive for headaches. Negative for dizziness. Psychiatric/Behavioral: Negative for behavioral problems. Physical Exam ED Triage Vitals Temp Pulse Resp BP SpO2 12/25/19 1124 12/25/19 1124 12/25/19 1124 12/25/19 1124 12/25/19 1124 37.2 ??C (99 ??F) 106 19 134/63 100 % Temp src Heart Rate Source Patient Position BP Location FiO2 (%) 12/25/19 1124 12/25/19 1524 12/25/19 1524 12/25/19 1524 -- Temporal Pulse Oximetry Lying Right arm Physical Exam Vitals signs and nursing note reviewed. Constitutional: General: She is not in acute distress. Appearance: She is well-developed. Comments: Patient is somnolent. HENT: Head: Normocephalic and atraumatic. Eyes: Conjunctiva/sclera: Conjunctivae normal. Neck: Musculoskeletal: Neck supple. Cardiovascular: Rate and Rhythm: Regular rhythm. Tachycardia present. Heart sounds: Normal heart sounds. No murmur. Pulmonary: Effort: Pulmonary effort is normal. No respiratory distress. Breath sounds: Normal breath sounds. Abdominal: General: Bowel sounds are normal. There is no distension. Palpations: Abdomen is soft. Tenderness: There is no abdominal tenderness. There is no guarding. Skin: General: Skin is warm and dry. Neurological: Mental Status: She is alert and oriented to person, place, and time. [facility] Labs Reviewed CBC WITH AUTO DIFFERENTIAL - Abnormal Result Value WBC 10.3 (*) Hgb 11.8 (*) Hct 37.6 Plt 260 MPV 10.0 RBC 3.88 (*) MCV 96.9 (*) MCH 30.4 MCHC 31.4 (*) RDW CV 14.9 RDW SD 53.4 (*) NRBC abs 0.00 COMPREHENSIVE METABOLIC PANEL - Abnormal Sodium 139 Potassium, pl 4.3 Chloride 107 CO2 24 Anion gap 9 BUN 13 Creatinine 0.69 Glucose 121 Calcium 8.5 Bilirubin, total 0.9 Protein, pl 6.0 (*) Albumin 3.8 Alk phos 69 ALT 24 AST 17 D-DIMER, QUANTITATIVE - Abnormal D-DIMER 592 (*) PRO B-TYPE NATRIURETIC PEPTIDE - Abnormal NT-proBNP 1,512 (*) DIFFERENTIAL AUTO - Abnormal Neutrophil abs 8.1 (*) Imm gran abs 0.0 Lymphocyte abs 1.5 Monocyte abs 0.4 Eosinophil abs 0.2 Basophil abs 0.0 Neutrophil pct 78.5 Imm gran pct 0.4 Lymphocyte pct 14.9 Monocyte pct 4.0 Eosinophil pct 1.7 Basophil pct 0.5 TROPONIN T - Abnormal Troponin T 0.04 (*) DRUGS OF ABUSE SCREEN, URINE WITHOUT CONFIRMATION - Abnormal Amphetamine, ur Not Detected Barbiturates, ur Not Detected Benzodiazepines, ur Detected (*) Cannabinoids, ur Not Detected Cocaine, ur Not Detected Fentanyl, Ur Not Detected Methadone, ur Not Detected Opiates, ur Not Detected Oxycodone, ur Not Detected Phencyclidine, ur Not Detected Urine Creatinine 7 Narrative: Drug of Abuse screening is performed by immunoassay for medical purposes only. This is not to be used for Pain Management purposes. INFLUENZA A/B AND RSV PCR Influenza A RNA Not Detected Influenza B RNA Not Detected RSV RNA Not Detected Narrative: This test is performed using the [employer] Xpert Flu/RSV Assay. This is a multiplex, real-time reverse transcriptase PCR assay that detects influenza A, influenza B, and respiratory syncytial virus RNA. This assay has been cleared by the US Food and Drug Administration, and its performance characteristics have been verified by the [facility]. This test is performed using the [employer] Xpert Flu/RSV Assay. This is a multiplex, real-time reverse transcriptase PCR assay that detects influenza A, influenza B, and respiratory syncytial virus RNA. This assay has been cleared by the US Food and Drug Administration, and its performance characteristics have been verified by the [facility]. SEPSIS LACTATE WITH REFLEX Sepsis Lactate 1.0 APTT aPTT 30 MAGNESIUM Magnesium 1.8 PROTIME-INR PT 12.2 INR 1.1 TROPONIN T Troponin T <0.01 EGFR GFR 97 TROPONIN T Troponin T <0.01 TROPONIN T CBC WITH AUTO DIFFERENTIAL BASIC METABOLIC PANEL HEMOGLOBIN A1C TROPONIN T CT Chest PE W Contrast Final Result 1. No pulmonary embolism. 2. Evidence of interstitial the lung bases with small pleural effusions. Ground glass opacities also likely reflect edema. Electronically signed by: Mathieu Tompkins M.D. XR Chest 1 View Final Result Mild left lower lung airspace disease. Differential includes edema, pneumonia, and atelectasis. Electronically signed by: Qamar Rapp M.D. Transthoracic Echo Complete W Doppler/CF (Results Pending) BP 103/57 (BP Location: Right arm, Patient Position: Lying) Pulse 94 Temp 37.2 ??C (99 ??F) (Temporal) Resp 16 Ht 167.6 cm (5' 6 ) Wt 101.7 kg (224 lb 3.3 oz) SpO2 95% BMI 36.19 kg/m?? ECG 12 lead Date/Time: 12/25/2019 1:53 PM Performed by: Alecia Mendiola MD Authorized by: Alecia Mendiola MD Rate: ECG rate: 108 Rhythm: Rhythm: sinus tachycardia Ectopy: Ectopy: PVCs MDM:Patient with no known cardiac history presents with tachycardia. Summarize history: Patient had tachycardia was cardioverted by EMS. EMS reported atrial flutter. Patient had negative PE study. She will be placed in observation and have echo and cardiology consult.Patient had some mild congestive heart failure and was given Lasix. Discussed with: Admitting physician and Knitter Machine They agree with : Admission ED Course as of Dec 24 2122 Time: 12/24 1236 Comment: Case discussed with Charisma Howell, SHARA, cardiology, who will discuss the patient's case with Dr. Ramirez and call back. By: Kayleigh Sanchez Time: 12/24 1239 Comment: Case discussed with Dr. Ramirez, ampoule filler and sealer, who agrees to consult. By: Kayleigh Sanchez Time: 12/24 1415 Comment: Case discussed with Dr. Benitez, hospitalist, who accepts the patient for admission. By: Kayleigh Sanchez Final diagnoses: Tachycardia Acute systolic congestive heart failure (CMS/HCC) Kayleigh Sanchez scribed for Alecia Mendiola MD, in the doctor's presence. I electronically signed this note at 1:52 PM on 12/25/2019. I, Alecia Mendiola MD, have personally performed the services described in the documentation , reviewed the documentation, as recorded by the scribe in my presence, and it accurately and completely records my words and actions. Alecia Mendiola MD 12/25/192122 ER OPERATOR * Surekah Sebastian RN - 12/25/2019 11:17 AM CST Pt arrives to ED via EMS with C/O anxiety and rapid HR. Per EMS, pt was in SVT with a rate of 175-180. Pt was given 2 doses of adenosine en route with no resolve. EMS then gave versed to pt and cardioverted pt one time. Upon arrival, pt HR is 109. Pt is A/O X 4 and answers all questions appropriately. ER OPERATOR * Augustina Infante RN - 12/25/2019 11:17 AM CST Bed: ED04 Expected date: 12/25/19 Expected time: Means of arrival: Comments: [id number] Augustina Infante RN 12/25/19 1117 ER OPERATOR documented in this encounter Miscellaneous Notes * Plan of Care - Fernando Bridges LCSW - 12/26/2019 2:23 PM CST (2:05 p.m.) KRISTOPHER received phone call from Jen with [facility] requesting permission to authorize a charge of $7.67 for Eliquis and metoprolol. KRISTOPHER authorized this charge for discharge meds. ER OPERATOR ER OPERATOR * Plan of Care - Conchis Nesbitt RN - 12/26/2019 2:13 PM CST Problem: Health Behavior: Goal: Understanding of discharge needs will improve Outcome: Adequate for Discharge Problem: Cardiac: Goal: Ability to maintain an adequate cardiac output will improve Outcome: Adequate for Discharge Goal: Hemodynamic stability will improve Outcome: Adequate for Discharge Problem: Lack of Knowledge: Goal: Ability to state signs and symptoms to report to health care provider will improve Outcome: Adequate for Discharge Goal: Knowledge of the prescribed therapeutic regimen will improve Outcome: Adequate for Discharge Goal: Mental status will improve Outcome: Adequate for Discharge Problem: Fluid Volume: Goal: Ability to achieve and maintain adequate urine output will improve Outcome: Adequate for Discharge Problem: Respiratory: Goal: Respiratory status will improve Outcome: Adequate for Discharge Goals: Clinical Goals for the Shift: pt will remain hemodynamically stable, no falls, VSS, labs improving,no chest pain. Summary: Patient has remained hemodynamically stable, no falls, vitals are stable, labs have improved. Patient has had no further chest pain. She tolerated the echo well. Patient is able to go home this afternoon. ER OPERATOR * Plan of Care - Carmela Baker RN - 12/25/2019 7:06 PM CST Goals: Clinical Goals for the Shift: Pt will remain free of chest pain and hemodynamically stable Summary: Patient has remained hemodynamically stable and free of chest pain. Problem: Health Behavior: Goal: Understanding of discharge needs will improve Outcome: Progressing Problem: Cardiac: Goal: Ability to maintain an adequate cardiac output will improve Outcome: Progressing Goal: Hemodynamic stability will improve Outcome: Progressing Problem: Lack of Knowledge: Goal: Ability to state signs and symptoms to report to health care provider will improve Outcome: Progressing Goal: Knowledge of the prescribed therapeutic regimen will improve Outcome: Progressing Goal: Mental status will improve Outcome: Progressing Problem: Fluid Volume: Goal: Ability to achieve and maintain adequate urine output will improve Outcome: Progressing Problem: Respiratory: Goal: Respiratory status will improve Outcome: Progressing ER OPERATOR documented in this encounter Plan of Treatment Not on file documented as of this encounter Procedures Procedure Name Priority Date/Time Associated Diagnosis Comments TRANSTHORACIC ECHO (TTE) COMPLETE W DOPPLER/CF WO CONTRAST Routine 12/26/2019 3:04 PM SANDER OPERATOR EGFR Routine 12/26/2019 6:17 AM SANDER OPERATOR DIFFERENTIAL AUTO Routine 12/26/2019 6:1 7 AM SANDER OPERATOR CBC WITH AUTO DIFFERENTIAL Routine 12/26/2019 6:17 AM SANDER OPERATOR TROPONIN T Timed 12/26/2019 6:17 AM SANDER OPERATOR HEMOGLOBIN A1C Routine 12/26/2019 6:17 AM SANDER OPERATOR BASIC METABOLIC PANEL Routine 12/26/2019 6:17 AM SANDER OPERATOR TROPONIN T Timed 12/26/2019 1:11 AM SANDER OPERATOR TROPONIN T Timed 12/25/2019 7:31 PM SANDER OPERATOR DRUGS OF ABUSE SCREEN, URINE WITHOUT CONFIRMATION Routine 12/25/2019 4:16 PM SANDER OPERATOR TROPONIN T Timed 12/25/2019 3:[address] CHEST PE W CONTRAST ED 0 1:06 PM SANDER OPERATOR XR CHEST 1 VIEW ED 12/25/2019 12:24 PM SANDER OPERATOR INFLUENZA A/B AND RSV PCR STAT 12/25/2019 12:18 PM SANDER OPERATOR SEPSIS LACTATE WITH REFLEX STAT 12/25/2019 11:38 AM SANDER OPERATOR EGFR STAT 12/25/2019 11:38 AM SANDER OPERATOR DIFFERENTIAL AUTO STAT 12/25/2019 11: 38 AM SANDER OPERATOR PRO B-TYPE NATRIURETIC PEPTIDE STAT 12/25/2019 11:38 AM SANDER OPERATOR CBC WITH AUTO DIFFERENTIAL STAT 12/25/2019 11:38 AM SANDER OPERATOR APTT STAT 12/25/2019 11:38 AM SANDER OPERATOR PROTIME-INR STAT 12/25/2019 11:38 AM SANDER OPERATOR D-DIMER, QUANTITATIVE STAT 12/25/2019 11:38 AM SANDER OPERATOR TROPONIN T STAT 12/25/2019 11:38 AM SANDER OPERATOR MAGNESIUM Routine 12/25/2019 11:38 AM SANDER OPERATOR COMPREHENSIVE METABOLIC PANEL STAT 12/25/2019 11:38 AM SANDER OPERATOR ECG 12-LEAD STAT 12/25/2019 11:21 AM SANDER OPERATOR documented in this encounter Results * TRANSTHORACIC ECHO (TTE) COMPLETE W DOPPLER/CF WO CONTRAST (12/26/2019 3:04 PM SANDER OPERATOR) Anatomical Region Laterality Modality Ultrasound 12/26/2019 9:13 AM SANDER OPERATOR Narrative 12/26/2019 11:48 AM SANDER OPERATOR [address] [address] Echocardiogram Report Patient Name: MERVAT RUFF : 1965 Study Date: 12/26/2019 9:13:32 AM Gender: F Tech: LOW PRESSURE BOILER OPERATOR Location: [id number] Ref.Provider: MAGUI SCHMID Height(Cm): 168 BSA: 2.13 Weight(Kg): 97.5 Quality: Adequate Order Provider: MAGUI SCHMID Procedures: Echocardiographic Report: Transthoracic echocardiogram with complete 2D, M-Mode, and color Doppler examination. Indications: Free Text. Measurements: 2D/M Mode Doppler Measurement Value Normal Range Measurement Value Normal Range EF Teich MM 53.6 [ 55.0 - 70.0 ] percent SLOAN Vmax 2.25 [ 2.00 - 4.00 ] cm2 LVIDd MM 5.16 [ 3.90 - 5.30 ] cm AV Mean PG 5 [ 2 - 4 ] mmHg LVIDs MM 3.72 [ 2.30 - 3.90 ] cm AV Peak Gerry 1.55 [ 1.00 - 1.70 ] m/s LVPWd MM 1.29 [ 0.60 - 1.00 ] cm AV VTI 35.86 cm IVSd MM 1.36 [ 0.60 - 0.90 ] cm LVOT Diam 2.14 [ 1.70 - 2.10 ] cm LA Dimension MM 4.87 [ 2.70 - 3.80 ] cm LVOT Peak Gerry 0.97 [ 0.70 - 1.10 ] m/s AoR Diam MM 2.69 [ 2.60 - 3.70 ] cm LVOT VTI 22.08 [ 20.00 - 30.00 ] cm ACS MM 1.81 cm MV E Peak Gerry 1.10 [ 0.60 - 1.30 ] m/s MV A Peak Gerry 0.68 [ 1.00 - 1.20 ] m/s MV Mean PG 2 [ <= 5 ] mmHg MV PHT 64 [ 20 - 100 ] msec MVA 3.50 MV Decel Time 220 [ 104 - 258 ] msec PV Peak Gerry 0.94 [ 0.40 - 0.80 ] m/s TR Peak Gerry 2.54 [ 1.00 - 2.80 ] m/s TR Peak PG 26 mmHg RVSP 36.00 [ 10.00 - 36.00 ] mmHg E' 0.10 E/E' 11.60 PA Pressure 26.00 [ 10.00 - 36.00 ] mmHg Findings: Atrial Septum: Normal atrial septum. Left Ventricle: Normal left ventricular systolic function with no focal wall motion abnormalities. Normal left ventricular size. Normal left ventricular wall thickness. Normal left ventricular diastolic function. Ejection fraction is visually estimated at 60-65 %. Left Atrium: There is moderate enlargement of left atrium. Right Ventricle: Normal right ventricular size. Normal right ventricular systolic function. Right Atrium: The right atrium is normal in size. Aortic Valve: Normal structure of the aortic valve. Mitral Valve: Mild mitral valve regurgitation. Pulmonic Valve: Normal structure of the pulmonic valve. Tricuspid Valve: Mild pulmonary hypertension based on right ventricular systolic pressure. Estimated peak RVSP is 35-40 mmHg. Mild tricuspid regurgitation. Pericardium: Normal pericardium [...] Electronically Signed By: Bayron Collier MD 2019-12-26 11:48:34 SANDER OPERATOR Procedure Note Bayron Collier MD - 12/26/[address] [place] [address] Echocardiogram Report Patient Name: MERVAT RUFF : 1965 Study Date: 12/26/2019 9:13:32 AM Gender: F Tech: LOW PRESSURE BOILER OPERATOR Location: [place] [address] Ref.Provider: MAGUI SCHMID Height(Cm): 168 BSA: 2.13 Weight(Kg): 97.5 Quality: Adequate Order Provider: MAGUI SCHMID Procedures: Echocardiographic Report: Transthoracic echocardiogram with complete 2D, M-Mode, and color Dopplerexamination. Indications: Free Text. Measurements: 2D/M Mode Doppler Measurement Value Normal Range Measurement Value Normal Range EF Teich MM 53.6 [ 55.0 - 70.0 ] percent SLOAN Vmax 2.25 [ 2.00 - 4.00 ]cm2 LVIDd MM 5.16 [ 3.90 - 5.30 ] cm AV Mean PG 5 [ 2 - 4 ] mmHg LVIDs MM 3.72 [ 2.30 - 3.90 ] cm AV Peak Gerry 1.55 [ 1.00 - 1.70 ] m/s LVPWd MM 1.29 [ 0.60 - 1.00 ] cm AV VTI 35.86 cm IVSd MM 1.36 [ 0.60 - 0.90 ] cm LVOT Diam 2.14 [ 1.70 - 2.10 ] cm LA Dimension MM 4.87 [ 2.70 - 3.80 ] cm LVOT Peak Gerry 0.97 [ 0.70 - 1.10 ]m/s AoR Diam MM 2.69 [ 2.60 - 3.70 ] cm LVOT VTI 22.08 [ 20.00 - 30.00 ] cm ACS MM 1.81 cm MV E Peak Gerry 1.10 [ 0.60 - 1.30 ] m/s MV A Peak Gerry 0.68 [ 1.00 - 1.20 ] m/s MV Mean PG 2 [ <= 5 ] mmHg MV PHT 64 [ 20 - 100 ] msec MVA 3.50 MV Decel Time 220 [ 104 - 258 ] msec PV Peak Gerry 0.94 [ 0.40 - 0.80 ] m/s TR Peak Gerry 2.54 [ 1.00 - 2.80 ] m/s TR Peak PG 26 mmHg RVSP 36.00 [ 10.00 - 36.00 ] mmHg E' 0.10 E/E' 11.60 PA Pressure 26.00 [ 10.00 - 36.00 ] mmHg Findings: Atrial Septum: Normal atrial septum. Left Ventricle: Normal left ventricular systolic function with no focal wall motionabnormalities. Normal left ventricular size. Normal left ventricular wall thickness. Normal leftventricular diastolic function. Ejection fraction is visually estimated at 60-65 %. Left Atrium: There is moderate enlargement of left atrium. Right Ventricle: Normal right ventricular size. Normal right ventricular systolicfunction. Right Atrium: The right atrium is normal in size. Aortic Valve: Normal structure of the aortic valve. Mitral Valve: Mild mitral valve regurgitation. Pulmonic Valve: Normal structure of the pulmonic valve. Tricuspid Valve: Mild pulmonary hypertension based on right ventricular systolic pressure.Estimated peak RVSP is 35-40 mmHg. Mild tricuspid regurgitation. Pericardium: Normal pericardium with no significant pericardial effusion. Aorta: Normal aortic root. Sinus of Valsalva is normal. Aortic arch is normal.Descending aorta is normal. IVC: Normal size and normal respiratory collapse consistent with normal rightatrial pressure (<5 mmHg). Pulmonary Artery: Normal pulmonary artery size. Conclusions: Normal left ventricular systolic function with no focal wall motionabnormalities. Normal left ventricular size. Normal left ventricular wall thickness. Normal leftventricular diastolic function. Ejection fraction is visually estimated at 60-65 %. There is moderate enlargement of left atrium. Mild mitral valve regurgitation. Mild pulmonary hypertension based on right ventricular systolic pressure.Estimated peak RVSP is 35-40 mmHg. Mild tricuspid regurgitation. Electronically Signed By: Bayron Collier MD 2019-12-26 11:48:34 SANDER OPERATOR Magui Schmid MD CV ECHO PROCEDURES Final Result * eGFR (12/26/2019 6:17 AM SANDER OPERATOR) eGFR 100 mL/min/1.7 3 m2 [facility] ([place]) Comment: Interpretive Data Reference Interval Normal ?>/= 90 mL/min/1.73m2 Mildly decreased* ? 60 - 89 mL/min/1.73m2 Mildly to moderately decreased ?45 - 59 mL/min/1.73m2 Moderately to severely decreased ??30 - 44 mL/min/1.73m2 Severely decreased ?15 - 29 mL/min/1.73m2 Kidney Failure ?< 15 ??mL/min/1.73m2 *Relative to young adult level If -[place]ian multiply value by 1.16. Estimated glomerular filtration rate is determined by the CKD-EPI equation recommended by the National Kidney Foundation (KDIGO 2012 Clinical Practice Guideline for the Evaluation and Management of Chronic Kidney Disease. Kidney Intnl Suppl Oct 2012;3:1). The CKD-EPI equation should not be used for patients with unstable renal function and has not been validated in children and those over 70. Current interpretive data was last reviewed 2016. Blood specimen (specimen) 12/26/2019 6:17 AM SANDER OPERATOR 12/26/2019 6:53 AM SANDER OPERATOR us Magui Schmid MD LAB BLOOD ORDERABLES Fin al Result [facility] ([place]) 1 [facility] Department [place] [address] * Differential, auto (12/26/2019 6:17 AM SANDER OPERATOR) Neutrophil abs 5.4 1.7 - 6.5 K/cumm [facility] ([place]) Imm gran abs 0.0 0.0 - 0.1 K/cumm [facility] ([place]) Lymphocyte abs 1.5 0.8 - 3.3 K/cumm [facility] ([place]) Monocyte abs 0.6 0.2 - 0.8 K/cumm [facility] ([place]) Eosinophil abs 0.3 0.0 - 0.5 K/cumm [facility] ([place]) Basophil abs 0.0 0.0 - 0.1 K/cumm [facility] ([place]) Neutrophil pct 68.9 % [facility] ([place]) Comment: Interpretive Data Percent cell count reference ranges are not reported, since discordance with absolute values may lead to misinterpretation of CBC data. Current Interpretive Data was last revised on 2018. Imm gran pct 0.5 % [facility] ([place]) Comment: Interpretive Data Percent cell count reference ranges are not reported, since discordance with absolute values may lead to misinterpretation of CBC data. Current Interpretive Data was last revised on 2018. Lymphocyte pct 18.8 % [facility] ([place]) Comment: Interpretive Data Percent cell count reference ranges are not reported, since discordance with absolute values may lead to misinterpretation of CBC data. Current Interpretive Data was last revised on 2018. Monocyte pct 7.2 % [facility] ([place]) Comment: Interpretive Data Percent cell count reference ranges are not reported, since discordance with absolute values may lead to misinterpretation of CBC data. Current Interpretive Data was last revised on 2018. Eosinophil pct 4.0 % [facility] ([place]) Comment: Interpretive Data Percent cell count reference ranges are not reported, since discordance with absolute values may lead to misinterpretation of CBC data. Current Interpretive Data was last revised on 2018. Basophil pct 0.6 % [facility] ([place]) Comment: Interpretive Data Percent cell count reference ranges are not reported, since discordance with absolute values may lead to misinterpretation of CBC data. Current Interpretive Data was last revised on 2018. Blood specimen (specimen) 12/26/2019 6:17 AM SANDER OPERATOR 12/26/2019 6:52 AM SANDER OPERATOR us Magui Schmid MD LAB BLOOD ORDERABLES Fin al Result [facility] ([place]) 1 [facility] Department [place] [address] * Troponin T (12/26/2019 6:17 AM SANDER OPERATOR) Troponin T <0.01 0.00 - 0.01 ng/mL [facility] ([place]) Comment: Interpretive Data Reference ranges for children <18 years of age have not been established. - > or = 18 years: Serial determinations are recommended for the diagnosis of myocardial infarction. ??Temporal rise and fall are consistent with myocardial infarction when at least one value is above the 99th percentile upper reference limit for troponin assay. ??Journal of the [place] [employer] 2012;60:1581-98. Current Interpretive Data Last Revised Date: 2018. Blood specimen (specimen) 12/26/2019 6:17 AM SANDER OPERATOR 12/26/2019 6:53 AM SANDER OPERATOR Alecia Mendiola MD LAB BLOOD ORDERABLES Final R esult [facility] ([place]) 1 [facility] Department [place] [address] * Basic metabolic panel (12/26/2019 6:17 AM SANDER OPERATOR) Sodium 141 135 - 145 mmol/L [facility] ([place]) Potassium, pl 4.3 3.3 - 4.9 mmol/L [facility] ([place]) Chloride 105 97 - 110 mmol/L [facility] ([place]) CO2 27 22 - 32 mmol/L [facility] ([place]) Anion gap 10 2 - 15 mmol/L [facility] ([place]) BUN 13 8 - 25 mg/dL [facility] ([place]) Creatinine 0.64 0.60 - 1.10 mg/dL [facility] ([place]) Glucose 102 70 - 199 mg/dL [facility] ([place]) Comment: Interpretive Data Fasting glucose >/= [...] classification and Diagnosis of Diabetes Diabetes Care 2017;40 (Suppl. 1):S11. Current interpretive data was last revised 2017. Calcium 8.8 8.5 - 10.3 mg/dL [facility] ([place]) Blood specimen (specimen) 12/26/2019 6:17 AM SANDER OPERATOR 12/26/2019 6:53 AM SANDER OPERATOR Magui Schmid MD LAB BLOOD ORDERABLES Fin al Result [facility] ([place]) 1 [facility] Department [place] [address] * (ABNORMAL) CBC with auto differential (12/26/2019 6:17 AM SANDER OPERATOR) WBC 7.8 3.8 - 9.9 K/cumm [facility] ([place]) Hgb 11.5(L) 11.9 - 15.5 g/dL [facility] ([place]) Hct 36.7 35.6 - 45.5 % [facility] ([place]) Plt 263 150 - 400 K/cumm [facility] ([place]) MPV 10.3 9.1 - 12.3 fL [facility] ([place]) RBC 3.79(L) 3.90 - 5.20 M/cumm [facility] ([place]) MCV 96.8(H) 81.3 - 96.4 fL [facility] ([place]) MCH 30.3 27.1 - 33.3 pg [facility] ([place]) MCHC 31.3(L) 32.3 - 35.7 g/dL [facility] ([place]) RDW CV 15.0(H) 11.1 - 14.9 % [facility] ([place]) RDW SD 54.1(H) 35.7 - 48.1 fL [facility] ([place]) NRBC abs 0.00 0.00 - 0.01 K/cumm [facility] ([place]) Blood specimen (specimen) 12/26/2019 6:17 AM SANDER OPERATOR 12/26/2019 6:52 AM SANDER OPERATOR Magui Schmid MD LAB BLOOD ORDERABLES Fin al Result Performing Organization Address [facility] Co de Phone Number [facility] ([place]) [address] [facility] [place] [address] * Hemoglobin A1c (12/26/2019 6:17 AM SANDER OPERATOR) Hgb A1C 5.2 4.0 - 5.6 % [facility] Estimated Average Glucose 103 mg/dL [facility] ([place]) Comment: The ADA recommends reporting an estimated Average Glucose (eAG) with all Hemoglobin A1c results using the equation derived from a study of 507 normal and diabetic adults. ??Minority populations were underrepresented and children were not included. ?? (Diabetes Care 31:9316-0660, 2008). ??The eAG is not equivalent to a fasting glucose. Blood specimen (specimen) 12/26/2019 6:17 AM SANDER OPERATOR 12/26/2019 6:52 AM SANDER OPERATOR Vel Camacho DO LAB BLOOD ORDERABLES Final Result Performing Organization Address [facility] Co de Phone Number [facility] ([place]) 1 [facility] [place] [address] * Troponin T (12/26/2019 1:11 AM SANDER OPERATOR) Pathologist [facility] Troponin T <0.01 0.00 - 0.01 ng/mL [facility] ([place]) Comment: Interpretive Data Reference ranges for children <18 years of age have not been established. - > or = 18 years: Serial determinations are recommended for the diagnosis of myocardial infarction. ??Temporal rise and fall are consistent with myocardial infarction when at least one value is above the 99th percentile upper reference limit for troponin assay. ??Journal of the [place] [employer] 2012;60:1581-98. Current Interpretive Data Last Revised Date: 2018. Blood specimen (specimen) 12/26/2019 1:11 AM SANDER OPERATOR 12/26/2019 1:15 AM SANDER OPERATOR Alecia Mendiola MD LAB BLOOD ORDERABLES Final R esult Performing Organization Address [facility] Co de Phone Number [facility] ([place]) 1 [facility] [place] [address] * (ABNORMAL) Troponin T (12/25/2019 7:31 PM SANDER OPERATOR) Troponin T 0.04(H) 0.00 - 0.01 ng/mL [facility] ([place]) Comment: Interpretive Data Reference ranges for children <18 years of age have not been established. - > or = 18 years: Serial determinations are recommended for the diagnosis of myocardial infarction. ??Temporal rise and fall are consistent with myocardial infarction when at least one value is above the 99th percentile upper reference limit for troponin assay. ??Journal of the [place] College [employer]iology 2012;60:1581-98. Current Interpretive Data Last Revised Date: 2018. Blood specimen (specimen) 12/25/2019 7:31 PM SANDER OPERATOR 12/25/2019 7:34 PM SANDER OPERATOR Magui Schmid MD LAB BLOOD ORDERABLES Fin al Result Performing Organization Address [facility] de Phone Number [facility] ([place]) 1 [facility] [place] [address] * (ABNORMAL) Drugs of Abuse Screen, Urine without Confirmation (12/25/2019 4:16 PM SANDER OPERATOR) Amphetamine, ur Not Detected CutOff 500ng/mL [facility] ([place]) Comment: Interpretive Data - Amphetamines: ??Samples containing greater than 500 ng/mL d-methamphetamine ??or other cross-reacting amphetamine compounds are reported as positive. ??Amphetamine immunoassays are subject to significant false positive rates due to cross-reactivity of non-amphetamine drugs. Current Interpretive Data was last reviewed 2018. Barbiturates, ur Not Detected CutOff 200ng/mL [facility] [facility] ([place]) Comment: Interpretive Data - Barbiturates: ??Samples containing greater than 200 ng/mL secobarbital or other cross-reacting barbiturate compounds are reported as positive. ??False positive and false negative results are possible. Current Interpretive Data was last reviewed 2018. Benzodiazepines, ur Detected(A) CutOff 100ng/mL [facility] ([place]) Comment: Interpretive Data - Benzodiazepines: ??Samples containing greater than 100 ng/mL nordiazepam or other cross-reacting compounds are reported as positive. ?? False positive and false negative results are possible. ?? Current Interpretive Data was last reviewed 2018. Cannabinoids, ur Not Detected CutOff 50 ng/mL [facility] ([place]) Comment: Interpretive Data - Cannabinoids: ??Samples containing greater than 50 ng/mL delta-9 THC -COOH or other cross-reacting compounds are reported as positive. ??False positive and false negative results are possible. ?? Current Interpretive Data was last reviewed 2018. Cocaine, ur Not Detected CutOff 150ng/mL [facility] ([place]) Comment: Interpretive Data - Cocaine: ??Samples containing greater than 150 ng/mL benzoylecgonine or other cross-reacting compounds are reported as positive. False positive and false negative results are possible. Current Interpretive Data was last reviewed 2018. Fentanyl, Ur Not Detected Cutoff 1 ng/mL [facility] ([place]) Comment: Interpretive Data - Fentanyls: ??Samples containing greater than 1 ng/mL fentanyl or other cross-reacting fentanyl compounds are reported as detected. ??False positive and false negative results are possible. Current Interpretive Data was last reviewed 2019. Methadone, ur Not Detected CutOff 300ng/mL [facility] ([place]) Comment: Interpretive Data - Methadone: ??Samples containing greater than 300 ng/mL d,l-methadone or other cross-reacting compounds are reported as positive. ??False positive and false negative results are possible. Current Interpretive Data was last reviewed 2018. Opiates, ur Not Detected CutOff 300ng/mL [facility] ([place]) Comment: Interpretive Data - Opiates: ??Samples containing greater than 300 ng/mL morphine or other cross-reacting compounds are reported as positive. ??False positive and false negative results are possible. Current Interpretive Data was last reviewed 2018. Oxycodone, ur Not Detected CutOff 100ng/mL [facility] ([place]) Comment: Interpretive Data - Oxycodone: ??Samples containing greater than 100 ng/mL oxycodone or other cross-reacting compounds are reported as positive. ??False positive and false negative results are possible. ?? Current Interpretive Data was last reviewed 2018. Phencyclidine, ur Not Detected CutOff 25 ng/mL [facility] ([place]) Comment: Interpretive Data - Phencyclidine: ??Samples containing greater than 25 ng/mL phencyclidine or other cross-reacting compounds are reported as positive. ??False positive and false negative results are possible. ?? Current Interpretive Data was last reviewed 2018. Urine Creatinine 7 mg/dL [facility] ([place]) Comment: Interpretive Data Urine Creatinine: < 10 mg/dL is extremely dilute = or > 10 but < 20 mg/dL is dilute = or > 20 mg/dL is normal Current Interpretive Data was last revised on 2018. Urine 12/25/2019 4:16 PM SANDER OPERATOR 12/25/2019 4:19 PM SANDER OPERATOR Narrative [facility] ([place]) - 12/25/2019 4:46 PM SANDER OPERATOR Drug of Abuse screening is performed by immunoassay for medical purposes only. ??This is not to be used for Pain Management purposes. Magui Schmid MD LAB URINE ORDERABLES Fin al Result [facility] ([place]) 1 [facility] Department of Laboratories [place], [place] [id number] * Troponin T (12/25/2019 3:55 PM SANDER OPERATOR) Troponin T <0.01 0.00 - 0.01 ng/mL [facility] ([place]) Comment: Interpretive Data Reference ranges for children <18 years of age have not been established. - > or = 18 years: Serial determinations are recommended for the diagnosis of myocardial infarction. ??Temporal rise and fall are consistent with myocardial infarction when at least one value is above the 99th percentile upper reference limit for troponin assay. ??Journal of the [place] [employer] 2012;60:1581-98. Current Interpretive Data Last Revised Date: 2018. Blood specimen (specimen) 12/25/2019 3:55 PM SANDER OPERATOR 12/25/2019 3:56 PM SANDER OPERATOR Magui Schmid MD LAB BLOOD ORDERABLES Fin al Result [facility] ([place]) 1 [facility] Department [place] [address] * CT Chest PE W Contrast (12/25/2019 1:06 PM SANDER OPERATOR) Anatomical Region Laterality Modality Body N/A Computed Tomogra phy 12/25/2019 1:24 PM SANDER OPERATOR Impressions 12/25/2019 1:30 PM SANDER OPERATOR 1. ??No pulmonary embolism. 2. ??Evidence of interstitial the lung bases with small pleural effusions. ??Ground glass opacities also likely reflect edema. Electronically signed by: Mathieu Tompkins M.D. Narrative 12/25/2019 1:30 PM SANDER OPERATOR EXAMINATION: CT CHEST PE W CONTRAST ORDERING HEALTHCARE PROVIDER: ALECIA MENDIOLA HISTORY: PE suspected, intermediate prob, positive D-dimer. seen at PCP today. ??pt was tachycardic in the office. ??pt c/o increased SOB, onset yesterday. ?? COMPARISON: None available TECHNIQUE: CT chest by PE protocol with intravenous contrast administration. ??MIP images obtained. All images stored on PACS. Automated exposure control was used as a dose optimization technique for this examination. CONTRAST TYPE/DOSE: 125 mL Optiray 350 left antecubital fossa IV FINDINGS: VASCULATURE: There is no pulmonary embolism. The thoracic aorta is normal in caliber without evidence of dissection. HEART: Normal heart size without pericardial effusion. MEDIASTINUM/ERA: No mediastinal mass. ??No abnormal lymph nodes by size criteria. LUNGS/PLEURA: Interlobular septal thickening in the lower lobes as evidence of interstitial edema with groundglass opacities and small bilateral pleural effusions. ??No focal airspace consolidation. AXILLA: No adenopathy. CHEST WALL: No masses. HARDWARE/LINES/TUBES: None. UPPER ABDOMEN: Grossly normal appearance. MUSCULOSKELETAL: No acute findings. OTHER: No other acute findings. Procedure Note Mathieu Tompkins MD - 12/25/2019 EXAMINATION: CT CHEST PE W CONTRAST ORDERING HEALTHCARE PROVIDER: ALECIA MENDIOLA HISTORY: PE suspected, intermediate prob, positive D-dimer. seen at PCP today. pt was tachycardic in the office. pt c/o increased SOB, onset yesterday. COMPARISON: None available TECHNIQUE: CT chest by PE protocol with intravenous contrast administration. MIP images obtained. All images stored on PACS. Automated exposure control was used as a dose optimization technique for this examination. CONTRAST TYPE/DOSE: 125 mL Optiray 350 left antecubital fossa IV FINDINGS: VASCULATURE: There is no pulmonary embolism. The thoracic aorta is normal in caliber without evidence of dissection. HEART: Normal heart size without pericardial effusion. MEDIASTINUM/ERA: No mediastinal mass. No abnormal lymph nodes by size criteria. LUNGS/PLEURA: Interlobular septal thickening in the lower lobes as evidence of interstitial edema with groundglass opacities and small bilateral pleural effusions. No focal airspace consolidation. AXILLA: No adenopathy. CHEST WALL: No masses. HARDWARE/LINES/TUBES: None. UPPER ABDOMEN: Grossly normal appearance. MUSCULOSKELETAL: No acute findings. OTHER: No other acute findings. IMPRESSION: 1. No pulmonary embolism. 2. Evidence of interstitial the lung bases with small pleural effusions. Ground glass opacities also likely reflect edema. Electronically signed by: Mathieu Tompkins M.D. us Alecia Mendiola MD IMG CT PROCEDURES Final Resu lt * XR Chest 1 View (12/25/2019 12:24 PM SANDER OPERATOR) Anatomical Region Laterality Modality Body, Chest N/A Computed Radiogr aphy 12/25/2019 12:2 9 PM SANDER OPERATOR Impressions 12/25/2019 12:32 PM SANDER OPERATOR Mild left lower lung airspace disease. ??Differential includes edema, pneumonia, and atelectasis. Electronically signed by: Qamar Rapp M.D. [facility] 12/25/2019 12:32 PM SANDER OPERATOR EXAMINATION: XR CHEST 1 VIEW. ?? TECHNIQUE: AP chest radiograph HISTORY: Tachycardia and chest pain today with cough and shortness of breath COMPARISON: None FINDINGS: Mild left lower lung airspace disease. ??Right lung is clear. ??No pneumothorax or large pleural effusion. ??Heart is enlarged. Procedure Note Qamar Rapp MD - 12/25/2019 EXAMINATION: XR CHEST 1 VIEW. TECHNIQUE: AP chest radiograph HISTORY: Tachycardia and chest pain today with cough and shortness of breath COMPARISON: None FINDINGS: Mild left lower lung airspace disease. Right lung is clear. No pneumothorax or large pleural effusion. Heart is enlarged. IMPRESSION: Mild left lower lung airspace disease. Differential includes edema, pneumonia, and atelectasis. Electronically signed by: Qamar Rapp M.D. Alecia Mendiola MD IMG XR PROCEDURES Final Resu lt * Influenza A/B and RSV PCR Nasopharyngeal (12/25/2019 12:18 PM SANDER OPERATOR) Influenza A RNA Not Detected Not Detected [facility] ([place]) Influenza B RNA Not Detected Not Detected [facility] ([place]) RSV RNA Not Detected Not Detected [facility] ([place]) Nasopharyngeal 12/25/2019 12 :18 PM SANDER OPERATOR 12/25/2019 12:19 PM SANDER OPERATOR Narrative [facility] ([place]) - 12/25/2019 12:52 PM SANDER OPERATOR This test is performed using the [employer] Xpert Flu/RSV Assay. This is a multiplex, real-time reverse transcriptase PCR assay that detects influenza A, influenza B, and respiratory syncytial virus RNA. This assay has been cleared by the [place] Food and Drug Administration, and its performance characteristics have been verified by the [facility]. ??This test is performed using the [employer] Xpert Flu/RSV Assay. This is a multiplex, real-time reverse transcriptase PCR assay that detects influenza A, influenza B, and respiratory syncytial virus RNA. This assay has been cleared by the US Food and Drug Administration, and its performance characteristics have been verified by the [facility]. Alecia Mendiola MD LAB MICROBIOLOGY - GENERAL O RDERABLES Final Result [facility] ([place]) 1 [facility] Department [place] [address] * eGFR (12/25/2019 11:38 AM SANDER OPERATOR) eGFR 97 mL/min/1.7 3 m2 [facility] ([place]) Comment: Interpretive Data Reference Interval Normal ?>/= 90 mL/min/1.73m2 Mildly decreased* ? 60 - 89 mL/min/1.73m2 Mildly to moderately decreased ?45 - 59 mL/min/1.73m2 Moderately to severely decreased ??30 - 44 mL/min/1.73m2 Severely decreased ?15 - 29 mL/min/1.73m2 Kidney Failure ?< 15 ??mL/min/1.73m2 *Relative to young adult level If -[place] multiply value by 1.16. Estimated glomerular filtration rate is determined by the CKD-EPI equation recommended by the National Kidney Foundation (KDIGO 2012 Clinical Practice Guideline for the Evaluation and Management of Chronic Kidney Disease. Kidney Intnl Suppl Oct 2012;3:1). The CKD-EPI equation should not be used for patients with unstable renal function and has not been validated in children and those over 70. Current interpretive data was last reviewed 2016. Blood specimen (specimen) 12/25/2019 11:38 AM SANDER OPERATOR 12/25/2019 11:40 AM SANDER OPERATOR us Alecia Mendiola MD LAB BLOOD ORDERABLES Final R esult [facility] ([place]) 1 [facility] Department of Laboratories [place], [place] [id number] * (ABNORMAL) Differential, auto (12/25/2019 11:38 AM SANDER OPERATOR) Neutrophil abs 8.1(H) 1.7 - 6.5 K/cumm [facility] ([place]) Imm gran abs 0.0 0.0 - 0.1 K/cumm [facility] ([place]) Lymphocyte abs 1.5 0.8 - 3.3 K/cumm [facility] ([place]) Monocyte abs 0.4 0.2 - 0.8 K/cumm [facility] ([place]) Eosinophil abs 0.2 0.0 - 0.5 K/cumm [facility] ([place]) Basophil abs 0.0 0.0 - 0.1 K/cumm [facility] ([place]) Neutrophil pct 78.5 % [facility] ([place]) Comment: Interpretive Data Percent cell count reference ranges are not reported, since discordance with absolute values may lead to misinterpretation of CBC data. Current Interpretive Data was last revised on 2018. Imm gran pct 0.4 % [facility] ([place]) Comment: Interpretive Data Percent cell count reference ranges are not reported, since discordance with absolute values may lead to misinterpretation of CBC data. Current Interpretive Data was last revised on 2018. Lymphocyte pct 14.9 % [facility] ([place]) Comment: Interpretive Data Percent cell count reference ranges are not reported, since discordance with absolute values may lead to misinterpretation of CBC data. Current Interpretive Data was last revised on 2018. Monocyte pct 4.0 % [facility] ([place]) Comment: Interpretive Data Percent cell count reference ranges are not reported, since discordance with absolute values may lead to misinterpretation of CBC data. Current Interpretive Data was last revised on 2018. Eosinophil pct 1.7 % [facility] ([place]) Comment: Interpretive [...] Data was last revised on 2018. Blood specimen (specimen) 12/25/2019 11:38 AM SANDER OPERATOR 12/25/2019 11:40 AM SANDER OPERATOR Alecia Mendiola MD LAB BLOOD ORDERABLES Final R esult [facility] ([place]) 1 [facility] [place] [address] * Troponin T (12/25/2019 11:38 AM SANDER OPERATOR) Troponin T <0.01 0.00 - 0.01 ng/mL [facility] ([place]) Comment: Interpretive Data Reference ranges for children <18 years of age have not been established. - > or = 18 years: Serial determinations are recommended for the diagnosis of myocardial infarction. ??Temporal rise and fall are consistent with myocardial infarction when at least one value is above the 99th percentile upper reference limit for troponin assay. ??Journal of the [place] College [employer] Cardiology 2012;60:1581-98. Current Interpretive Data Last Revised Date: 2018. Blood specimen (specimen) 12/25/2019 11:38 AM SANDER OPERATOR 12/25/2019 11:40 AM SANDER OPERATOR Alecia Mendiola MD LAB BLOOD ORDERABLES Final R esult Performing Organization Address [facility] de Phone Number [facility] ([place]) 1 [facility] [place] [address] * Protime-INR (12/25/2019 11:38 AM SANDER OPERATOR) PT 12.2 9.5 - 13.0 sec [facility] ([place]) INR 1.1 0.9 - 1.2 [facility] ([place]) Comment: Interpretive data Oral anticoagulant therapeutic ranges: Venous thromboembolism prophylaxis or treatment: 2.0-3.0 CARDIOLOGY Standard range: 2.0-3.0 High-intensity range: 2.5-3.5 Refer to indication-specific guidelines for appropriate target ranges for prosthetic heart valve replacement. Current interpretive data was last revised on 2019. Blood specimen (specimen) 12/25/2019 11:38 AM SANDER OPERATOR 12/25/2019 11:40 AM SANDER OPERATOR Alecia Mendiola MD LAB BLOOD ORDERABLES Final R esult Performing Organization Address [facility] Co de Phone Number [facility] ([place]) 1 [facility] Department [place] [address] * (ABNORMAL) Pro B-type natriuretic peptide (12/25/2019 11:38 AM SANDER OPERATOR) NT-proBNP 1,512(H) <=300 pg/mL [facility] ([place]) Comment: Interpretive [...] et.al. Eur Heart J. 2006:27:330-337. 2. Silke MAE, Eli DING. J. AM Kenney Cardiol: Cardiovasc Imag. 2009;2: 216- 225. Interpretive Data Last Revised Date: 2018. Blood specimen (specimen) 12/25/2019 11:38 AM SANDER OPERATOR 12/25/2019 11:40 AM SANDER OPERATOR Alecia Mendiola MD LAB BLOOD ORDERABLES Final R esult [facility] 1 [facility] [place] [address] * Magnesium (12/25/2019 11:38 AM SANDER OPERATOR) Magnesium 1.8 1.4 - 2.5 mg/dL [facility] ([place]) Blood specimen (specimen) 12/25/2019 11:38 AM SANDER OPERATOR 12/25/2019 11:40 AM SANDER OPERATOR Alecia Mendiola MD LAB BLOOD ORDERABLES Final R esult Performing Organization Address [facility] Co de Phone Number [facility] [address] [facility] [place] [address] * (ABNORMAL) D-dimer, quantitative (12/25/2019 11:38 AM SANDER OPERATOR) D-Dimer 592(H) <=499 ng/mL FEU [facility] ([place]) Comment: Interpretive data FDA approved the D-dimer, in conjunction with a low or moderate pretest probability score, to exclude venous thromboembolic events (VTE) {PE and DVT} in outpatients when the D-dimer result is < 500 ng/ml FEU. ?? Evidence supports using an age-adjusted D-dimer cut-off for outpatients older than 50 {age x 10) to improve specificity without sacrificing sensitivity. Example: age 68, VTE cut-off 680 ng/ml FEU. References; Karissa HT et al. Brit Med J. 2013;346:f2492. Rosalba et al. Annals Int Med. 2015;163:701-11. Current interpretive data was last revised on 2019. Blood specimen (specimen) 12/25/2019 11:38 AM SANDER OPERATOR 12/25/2019 11:40 AM SANDER OPERATOR us Alecia Mendiola MD LAB BLOOD ORDERABLES Final R esult [facility] ([place]) 1 [facility] Department [place] [address] * (ABNORMAL) Comprehensive metabolic panel (12/25/2019 11:38 AM SANDER OPERATOR) Sodium 139 135 - 145 mmol/L [facility] ([place]) Potassium, pl 4.3 3.3 - 4.9 mmol/L [facility] ([place]) Chloride 107 97 - 110 mmol/L [facility] ([place]) CO2 24 22 - 32 mmol/L [facility] ([place]) Anion gap 9 2 - 15 mmol/L [facility] ([place]) BUN 13 8 - 25 mg/dL [facility] ([place]) Creatinine 0.69 0.60 - 1.10 mg/dL [facility] ([place]) Glucose 121 70 - 199 mg/dL [facility] ([place]) [...] classification and Diagnosis of Diabetes Diabetes Care 2017;40 (Suppl. 1):S11. Current interpretive data was last revised 2017. Calcium 8.5 8.5 - 10.3 mg/dL [facility] ([place]) Bilirubin, total 0.9 0.1 - 1.2 mg/dL [facility] ([place]) Protein, pl 6.0(L) 6.5 - 8.5 g/dL [facility] ([place]) Albumin 3.8 3.5 - 5.0 g/dL [facility] ([place]) Alk phos 69 40 - 130 Units/L [facility] ([place]) ALT 24 7 - 45 Units/L [facility] ([place]) AST 17 10 - 45 Units/L [facility] ([place]) Blood specimen (specimen) 12/25/2019 11:38 AM SANDER OPERATOR 12/25/2019 11:40 AM SANDER OPERATOR Alecia Mendiola MD LAB BLOOD ORDERABLES Final R esult [facility] ([place]) 1 [facility] Department [place] [address] * (ABNORMAL) CBC with auto differential (12/25/2019 11:38 AM SANDER OPERATOR) WBC 10.3(H) 3.8 - 9.9 K/cumm [facility] ([place]) Hgb 11.8(L) 11.9 - 15.5 g/dL [facility] ([place]) Hct 37.6 35.6 - 45.5 % [facility] ([place]) Plt 260 150 - 400 K/cumm [facility] ([place]) MPV 10.0 9.1 - 12.3 fL [facility] ([place]) RBC 3.88(L) 3.90 - 5.20 M/cumm [facility] ([place]) MCV 96.9(H) 81.3 - 96.4 fL [facility] ([place]) MCH 30.4 27.1 - 33.3 pg [facility] ([place]) MCHC 31.4(L) 32.3 - 35.7 g/dL [facility] ([place]) RDW CV 14.9 11.1 - 14.9 % [facility] ([place]) RDW SD 53.4(H) 35.7 - 48.1 fL [facility] ([place]) NRBC abs 0.00 0.00 - 0.01 K/cumm [facility] ([place]) Blood specimen (specimen) 12/25/2019 11:38 AM SANDER OPERATOR 12/25/2019 11:40 AM SANDER OPERATOR Alecia Mendiola MD LAB BLOOD ORDERABLES Final R esult Performing Organization Address [facility] de Phone Number [facility] ([place]) [address] [place] [address] * aPTT (12/25/2019 11:38 AM SANDER OPERATOR) aPTT 30 25 - 37 sec [facility] ([place]) Comment: Interpretive data Heparin therapeutic range: 60-94 seconds Range based on correlation with therapeutic heparin activity range of 0.3-0.7 units/ml. Current interpretive data was last revised on 2019. Blood specimen (specimen) 12/25/2019 11:38 AM SANDER OPERATOR 12/25/2019 11:40 AM SANDER OPERATOR Alecia Mendiola MD LAB BLOOD ORDERABLES Final R esult Performing Organization Address [facility] de Phone Number [facility] ([place]) [address] [place] [address] * Sepsis Lactate w/ Reflex (12/25/2019 11:38 AM SANDER OPERATOR) Sepsis Lactate 1.0 0.7 - 2.0 mmol/L [facility] ([place]) Blood specimen (specimen) 12/25/2019 11:38 AM SANDER OPERATOR 12/25/2019 11:40 AM SANDER OPERATOR Alecia Mendiola MD LAB BLOOD ORDERABLES Final R esult Performing Organization Address [facility] Co de Phone Number [facility] ([place]) [address] [place] [address] * ECG 12 lead (12/25/2019 11:21 AM SANDER OPERATOR) 12/25/2019 11:2 1 AM SANDER OPERATOR Narrative [facility] - 12/29/2019 3:39 PM SANDER OPERATOR Vent Rate: 108 bpm RR Interval: 552 msec [place] Interval: 146 msec QRS Duration: 102 msec QT Interval: 360 msec QTC Interval: 424 msec P-R-T [place]: 45 - 38 - 0 degrees SINUS TACHYCARDIA WITH OCCASIONAL VENTRICULAR PREMATURE COMPLEXES LEFT ATRIAL ENLARGEMENT LOW QRS VOLTAGE IN PRECORDIAL LEADS INCOMPLETE RIGHT BUNDLE BRANCH BLOCK Electronically Signed By: Nathan Douglass MD, [facility] Alecia Mendiola MD ECG ORDERABLES Final Result [facility] documented in this encounter Visit Diagnoses Diagnosis Tachycardia- Primary Unspecified tachycardia Tachycardia Unspecified tachycardia Acute systolic congestive heart failure (CMS/HCC) (HCC) Acute systolic congestive heart failure (CMS/HCC) (HCC) documented in this encounter Administered Medications Inactive Administered Medications - up to 3 most recent administrations Medication Order MAR Action Action Date Dose Rate Site acetaminophen (TYLENOL) tablet 650 mg 650 mg, oral, Every 6 hours PRN, 1st line for pain, Starting on Wed12/25/19 at 2022 Given 12/26/2019 6:36 AM SANDER OPERATOR 650 mg Given 12/25/2019 8:39 PM SANDER OPERATOR 650 mg apixaban (ELIQUIS) tablet 5 mg 5 mg, oral, Every 12 hours scheduled, First dose on Wed12/26/19 at 1000, Nurse to discontinue heparin infusion order and associated bolus at first administration of apixaban using ? order condition met? order source, Indications: atrial fibrillationIndications:atrial fibrillation Given 12/26/2019 10:47 AM SANDER OPERATOR 5 mg enoxaparin (LOVENOX) syringe 40 mg 40 mg, subcutaneous, Daily (for enoxaparin), First dose on Wed12/25/19 at 2100, Indications: Deep Vein Thrombosis PreventionIndications:Deep Vein Thrombosis Prevention Given 12/25/2019 8:28 PM SANDER OPERATOR 40 mg Left Lower Abdomen furosemide (LASIX) 10 mg/mL injection 20 mg 20 mg, intravenous, Administer over 1 Minutes, Daily, First dose (after last reorder) on Wed12/26/19 at 0900, Room temperature only Given 12/26/2019 8:50 AM SANDER OPERATOR 20 mg furosemide (LASIX) 10 mg/mL injection 40 mg 40 mg, intravenous, Administer over 1 Minutes, Once, On Wed12/25/19 at 1412, For 1 dose, Room temperature only Given 12/25/2019 2:25 PM SANDER OPERATOR 40 mg ioversoL (OPTIRAY 350) syringe syringe 125 mL 125 mL, intravenous, Once in imaging, contrast, Starting on Wed12/25/19 at 1305, For 1 dose Given 12/25/2019 1:06 PM SANDER OPERATOR 125 mL metoprolol XL (TOPROL-XL) extended release tablet 50 mg 50 mg, oral, Daily, First dose on Wed12/25/19 at 1700, Tablets that are scored may be split, but do not crush, chew, dissolve, open or otherwise manipulate tablet/capsule. Given 12/26/2019 8:50 AM SANDER OPERATOR 50 mg Given 12/25/2019 5:36 PM SANDER OPERATOR 50 mg morphine 4 mg/mL injection - ADS Override Pull Starting on Wed12/25/19 at 1421, For 1 dose, Created by cabinet override morphine injection 2 mg 2 mg, intravenous, Administer over 4 Minutes, Once, On Wed12/25/19 at 1426, For 1 dose, Indications: PainIndications:Pain Given 12/25/2019 2:26 PM SANDER OPERATOR 2 mg ondansetron (ZOFRAN) 4 mg/2 mL injection - ADS Override Pull Starting on Wed12/25/19 at 1422, For 1 dose, Created by cabinet override ondansetron (ZOFRAN) injection 4 mg 4 mg, intravenous, Administer over 2 Minutes, Once, On Wed12/25/19 at 1426, For 1 dose, Indications: Nausea, VomitingIndications:Nausea,Vomiting Given 12/25/2019 2:26 PM SANDER OPERATOR 4 mg documented in this encounter Discontinued Medications Medication Sig Discontinue Reason Start Date End Da te meloxicam (MOBIC) 15 mg tabletIndications:Oste oarthritis Take 15 mg by mouth daily as needed for pain Stop Taking at Discharge 12/26/2019 documented as of this encounter Active and Recently Administered Medications Times are shown in SANDER OPERATOR. Scheduled Medication Order 12/24/2019 12/25/2019 12/26/2019 apixaban (ELIQUIS) tablet 5 mg 5 mg, oral, Every 12 hours scheduled, First dose on Wed12/26/19 at 1000, Nurse to discontinue heparin infusion order and associated bolus at first administration of apixaban using ? order condition met? order source, Indications: atrial fibrillation 1047 (Given - Provid er: Conchis Nesbitt RN) enoxaparin (LOVENOX) syringe 40 mg (CANCELED) 40 mg, subcutaneous, Daily (for enoxaparin), First dose on Wed12/25/19 at 2100, Indications: Deep Vein Thrombosis Prevention 2027 (Given - Provider: Latasha Conde RN) furosemide (LASIX) 10 mg/mL injection 20 mg 20 mg, intravenous, Administer over 1 Minutes, Daily, First dose (after last reorder) on Wed12/26/19 at 0900, Room temperature only 0850 (Given - Provid er: Conchis Nesbitt RN) furosemide (LASIX) 10 mg/mL injection 40 mg (COMPLETED) 40 mg, intravenous, Administer over 1 Minutes, Once, On Wed12/25/19 at 1412, For 1 dose, Room temperature only 1425 (Given - Provider: Surekha Sebastian RN) metoprolol XL (TOPROL-XL) extended release tablet 50 mg 50 mg, oral, Daily, First dose on Wed12/25/19 at 1700, Tablets that are scored may be split, but do not crush, chew, dissolve, open or otherwise manipulate tablet/capsule. 1736 (Given - Provider: Carmela Baker RN) 0850 (Given - Provider: Conchis Nesbitt, SUDEEP) morphine injection 2 mg (COMPLETED) 2 mg, intravenous, Administer over 4 Minutes, Once, On Wed12/25/19 at 1426, For 1 dose, Indications: Pain 1426 (Given - Provider: Surekha Sebastian, SUDEEP) ondansetron (ZOFRAN) injection 4 mg (COMPLETED) 4 mg, intravenous, Administer over 2 Minutes, Once, On Wed12/25/19 at 1426, For 1 dose, Indications: Nausea, Vomiting 1426 (Given - Provider: Surekha Sebastian, SUDEEP) PRN Medication Order 12/24/2019 12/25/2019 12/26/2019 acetaminophen (TYLENOL) tablet 650 mg 650 mg, oral, Every 6 hours PRN, 1st line for pain, Starting on Wed12/25/19 at 2022 2038 (Given - Provider: Latasha Conde RN) 0636 (Given - Provider: Latasha Conde RN) ioversoL (OPTIRAY 350) syringe syringe 125 mL (COMPLETED) 125 mL, intravenous, Once in imaging, contrast, Starting on 12/25/19 at 1305, For 1 dose 1306 (Given - Provider: Carmelo Bae, RT - Comment: [id number]) documented in this encounter Orders Diet Count Last Ordered Date First Orde red Date ADULT DISCHARGE DIET 1 12/26/2019 Nursing Count Last Ordered Date First Orde red Date DISCHARGE ACTIVITY 1 12/26/2019 DISCHARGE CALL PROVIDER 8 12/26/2019 DISCHARGE INSTRUCTIONS 2 12/26/2019 FOLLOW UP WITH ESTABLISHED PROVIDER 1 12/25 WEIGH PATIENT 1 12/25/2019 Consult Count Last Ordered Date First Orde red Date IP CONSULT TO CARDIOLOGY 1 12/25/2019 ADT Patient Update Count Last Ordered Date Firs t Ordered Date ED IP DECISION TO ADMIT 1 12/25/2019 documented in this encounter Care Teams Fitness Sales Associate Relationship Specialty Start Date End Date Petra Pak MD [address] [place] [address] PCP - General 02/16/17 03/06/20 documented as of this encounter
--- OUTSIDE RECORDS SUMMARY | 2024-10-13 16:14 | XMS_ITS | Encounter Summary ---
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 Gender Identity Not on file Sexual Orientation Not on file documented as of this encounter Discharge Disposition Disposition Code Departure Means Destination Discharge to home or self care documented in this encounter Plan of Treatment Not on file documented as of this encounter Procedures Procedure Name Priority Date/Time Associated Diagnosis Comments TSH Routine 03/26/2020 8:48 AM CDT T4, FREE Routine 03/26/2020 8:48 AM CDT documented in this encounter Results * TSH (03/26/2020 8:48 AM CDT) Thyroid Stimulating Hormone 2.99 0.30 - 4.20 mcIUnit/mL [facility] ([facility]) Blood specimen (specimen) 03/26/2020 8:48 AM CDT 03/26/2020 8:55 AM CDT us Wali Pak MD LAB BLOOD ORDERABLES Final Result Performing Organization Address City/[facility]/ZIP Co de Phone Number [facility] ([place]) [address] [facility] [employer] [place] [address] * T4, free (03/26/2020 8:48 AM CDT) Free T4 1.04 0.90 - 1.70 ng/dL [facility] ([place]) Blood specimen (specimen) 03/26/2020 8:48 AM CDT 03/26/2020 8:55 AM CDT us Wali Pak MD LAB BLOOD ORDERABLES Final Result [facility] ([place]) 1 [facility] [place] [address] documented in this encounter Visit Diagnoses Not on filedocumented in this encounter Care Teams High Wire Artist Relationship Specialty Start Date End Date Wali Pak MD [address] [place] [address] PCP - General 03/26/20 documented as of this encounter
--- OUTSIDE RECORDS SUMMARY | 2024-10-13 16:15 | XMS_ITS | Encounter Summary ---
Author Organization [facility] Address [address] [place] [address] Care Team Providers Care Boiler Out Name Role Phone Wali Pak MD Primary Care Provider +1- [phone] Encounter Details Date Type Department Care Team (Late st Contact Info) Description 07/20/2014 9:43 AM CDT - 07/20/2014 2:01 PM CDT Hospital Encounter [facility] Ruchi Mcbride MD [address] [address] Cellulitis and abscess; Methicillin resistant Staphylococcus aureus infection Social History Tobacco Use Types Packs/Day Years Used Date Smoking Tobacco: Never Alcohol Use Standard Drinks/Week Comments Yes 0 (1 standard drink = 0.6 oz pur e alcohol) Comments Unknown Sex and Gender Information Value Date Recorded Sex Assigned at Not on file 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 Gender Identity Not on file Sexual [...] Procedure Name Priority Date/Time Associated Diagnosis Comments DISCHARGE CUMULATIVE SUMMARY ADDENDUM Routine 08/02/2014 12:38 AM CDT US PELVIS COMPLETE Routine 07/20/2014 11 :34 AM CDT BLOOD HERPES SIMPLEX VIRUS (HSV), PCR Routine 07/20/2014 10:15 AM CDT MICROBIOLOGY SUMMARY Routine 07/20/2014 12:00 AM CDT DISCHARGE LABORATORY CUMULATIVE REPORT Routine 07/20/2014 12:00 AM CDT documented in this encounter Results * Discharge Cumulative Summary Addendum (08/02/2014 12:38 AM CDT) 08/02/2014 12:3 8 AM CDT Narrative HISTORICAL RESULTS - 08/02/2014 12:38 AM CDT Patient No: [id number] ? [facility] Patient Name: MERVAT RUFF ?[facility] Age: 49 YRS ?: 1965 ?Sex:F ?[address] )[phone] ?? Adm Dt: 07/20/2014 ?[place], [place] ??[address] Created: 08/02/2014 ??0038 ?? Pt. Type: E ? Discharge Dt: 07/20/2014 ? Pathologists: Thi Balbuena MD Admit Attend Dr: RUCHI MCBRIDE MD ? [facility] ? [facility] [place] [place] ? [id number] [place] [address] ? TOMER Arriola ?Collection Date: ?07/20/14 ?Collection Time: ?1015 ? Ref Range: ?? Units: ? HSV 1+2 BY PCR ?SOURCE @ ?SEE REPT ?HSV1 DNA @ ?SEE REPT ?HSV2 DNA @ ?SEE REPT @ = SOURCE, HSV1 DNA, HSV2 DNA Performed at ??[facility] ?LAB ?? END OF CHART ? Page: ?? 1 us Historical Provider LAB MICROBIOLOGY - GENERA L ORDERABLES Final Result HISTORICAL RESULTS * US Pelvis Complete (07/20/2014 11:34 AM CDT) Anatomical Region Laterality Modality Pelvis N/A Ultrasound 07/20/2014 11:3 4 AM CDT Narrative 07/20/2014 10:22 PM CDT US Pelvis ??Acc#: ??[id number] US Transvaginal ??Acc#: ??[id number] DATE OF EXAM: ??Jul 20 2014 CLINICAL HISTORY: Pelvic pain. ??Vaginal pain. RESULT: Multiple transverse and longitudinal sonographic views were obtained. The uterus is enlarged measuring 13.3cm in length and 6.1cm in AP dimension with 8.9cm in transverse dimension. ??The uterus is somewhat difficult to penetrate making assessment of individual myomata more difficult. ??There was no ascites. ??The right ovary was not clearly identified with overlying gas apparently obscuring the area. ??The left ovary is within normal limits in size measuring 2.9 x 2.1 x 3.1cm with a 2.1cm cyst. ??The endometrial echo was identified on the transvaginal views and is up to 7.7mm in thickness. ??Several small Nabothian cysts are noted in the cervix with the largest cyst measuring approximately 6mm in diameter. IMPRESSION: ENLARGED UTERUS LIKELY WITH SMALL UTERINE MYOMATA ALTHOUGH INDIVIDUAL MYOMATA NOT CLEARLY IDENTIFIED. SMALL LEFT OVARIAN CYST. RIGHT OVARY NOT SEEN LIKELY OBSCURED BY OVERLYING GAS. SMALL NABOTHIAN CYSTS IN CERVIX. Interpreting Physician: ??NEYDA GIL M.D. ??Read on: ??Jul 20 2014 4:00P Transcribed by: ??mrr ??On: Jul 20 2014 ??4:00P Approved Electronically by: ??NEYDA GIL M.D. ??on: ??Jul 20 2014 10:22P Ordering DR: DR RUCHI MCBRIDE Attending DR: PHYSICIAN NO Procedure Note Provider, MD Denice - 02/18/2017 US Pelvis Acc#: [id number] US Transvaginal Acc#: [id number] DATE OF EXAM: Jul 20 2014 CLINICAL HISTORY: Pelvic pain. Vaginal pain. RESULT: Multiple transverse and longitudinal sonographic views were obtained. Theuterus is enlarged measuring 13.3cm in length and 6.1cm in AP dimensionwith 8.9cm in transverse dimension. The uterus is somewhat difficult topenetrate making assessment of individual myomata more difficult. Therewas no ascites. The right ovary was not clearly identified with overlyinggas apparently obscuring the area. The left ovary is within normal limitsin size measuring 2.9 x 2.1 x 3.1cm with a 2.1cm cyst. The endometrial echo was identified on the transvaginal viewsand is up to 7.7mm in thickness. Several small Nabothian cysts are notedin the cervix with the largest cyst measuring approximately 6mm indiameter. IMPRESSION: ENLARGED UTERUS LIKELY WITH SMALL UTERINE MYOMATA ALTHOUGH INDIVIDUALMYOMATA NOT CLEARLY IDENTIFIED. SMALL LEFT OVARIAN CYST. RIGHT OVARY NOTSEEN LIKELY OBSCURED BY OVERLYING GAS. SMALL NABOTHIAN CYSTS IN CERVIX. Interpreting Physician: NEYDA GIL M.D. Read on: Jul 20 20144:00P Transcribed by: mrr On: Jul 20 2014 4:00P Approved Electronically by: NEYDA GIL M.D. on: Jul 20 201410:22P Ordering DR: DR RUCHI MCBRIDE Attending DR: PHYSICIAN NO us Historical Provider IMG US PROCEDURES Final R esult * Blood Herpes simplex virus (HSV), PCR (07/20/2014 10:15 AM CDT) HSV 1, PCR See Report HISTORIC AL RESULTS HSV 2, PCR See Report HISTORIC AL RESULTS Blood specimen (specimen) 07/20/2014 10:15 AM CDT us Ruchi Mcbride MD LAB BLOOD ORDERABLES Final Result HISTORICAL RESULTS * Microbiology Summary (07/20/2014 12:00 AM CDT) 07/20/2014 Narrative HISTORICAL RESULTS - 07/24/2014 12:50 AM CDT ? [facility] ?CLINICAL LABORATORIES ? MICROBIOLOGY REPORT PATIENT NAME: ??MERVAT RUFF ?MED RECORD#: ??[id number] BIRTHDATE: ??1965 ?? AGE: ??49 YRS SEX: F ?PATIENT#: ? [id number] ADMITTING DR: ??RUCHI MCBRIDE MD ? ATTENDING DR: ??RUCHI MCBRIDE MD ? ACCESSION#: ?? [id number] CREATED: ??07/24/14 ?? 0038 ? ADMIT DATE: ?? 07/20/14 ? MICRO - WOUND WOUND CULTURE ? Collected: 07/20/14 1015 ? Received: 07/20/14 1158 Source: VAGINAL SMEAR ? Started: 07/20/14 1159 ?EXTERNAL VAG SWAB ?07/21/14 1206 ? RARE GROWTH OF NORMAL VAGINAL CORTEZ CULTURED ?07/22/14 0804 ? RARE GROWTH OF STAPHYLOCOCCUS AUREUS IDENTIFICATION TO ?FOLLOW ? RARE GROWTH OF NORMAL VAGINAL CORTEZ CULTURED ?09/29/14 0908 ? RARE GROWTH OF STAPHYLOCOCCUS AUREUS ? IDENTIFIED : METHICILLIN SENSITIVE STAPH AUREUS ?(SENSITIVITIES PERFORMED) ? RARE GROWTH OF NORMAL VAGINAL CORTEZ CULTURED MSSA ? OBDULIO OBDULIO INTERP ____ ? ___ ?AMOX/KCLAV ? <=4/2 ?S ?CEFAZOLIN ?<=4 ?S ?CIPROFLOXACIN ?<=1 ?S ?CLINDAMYCIN ?<=0.5 ?S ?ERYTHROMYCIN ? <=0.5 ?S ?MOXIFLOXACIN ? <=0.5 ?S ?OXACILLIN ?1 ?S ?RIFAMPIN 1.0 ? <=1 ?S ?TETRACYCLINE ? <=4 ?S ?TRIMETH/SULF ?<=.5/9.5 ?S ?VANCOMYCIN ? N/A ?N/A ?PENDING ORDERS [id number] ??07/20/14 1102 HSV 1+2 BY PCR ? RECVD ?? END OF CHART us Historical Provider MD LAB MICROBIOLOGY - GENERA L ORDERABLES Final Result HISTORICAL RESULTS * Discharge Laboratory Cumulative Report (07/20/2014 12:00 AM CDT) 07/20/2014 Narrative HISTORICAL RESULTS - 07/22/2014 2:36 AM CDT Patient No: [id number] ? [facility] Patient Name: MERVAT RUFF ?[facility] Age: 49 YRS ?: 1965 ?Sex:F ?[address] )[phone] ?? Adm Dt: 07/20/2014 ?[place], [place] ??[address] Created: 07/22/2014 ??0236 ?? Pt. Type: E ? Discharge Dt: 07/20/2014 ? Pathologists: Thi Balbuena MD Admit Dr. Gallagher Dr: RUCHI MCBRIDE MD ? MICRO - WOUND WOUND CULTURE ? Collected: 07/20/14 1015 ? Received: 07/20/14 1158 Source: VAGINAL SMEAR ? Started: 07/20/14 1159 ?EXTERNAL VAG SWAB ? PRELIMINARY REPORT ?07/21/14 1206 ? RARE GROWTH OF NORMAL VAGINAL CORTEZ CULTURED ?? END OF CHART ? Page: ?? 1 us Historical Provider LAB BLOOD ORDERABLES Mary l Result HISTORICAL RESULTS documented in this encounter Visit Diagnoses Diagnosis Cellulitis and abscess Cellulitis and abscess of unspecified site Methicillin resistant Staphylococcus aureus infection Methicillin resistant Staphylococcus aureus in conditions classified elsewhere and of unspecified site documented in this encounter Care Teams Boiler Out Relationship Specialty Start Date End Date Wali Pak MD [address] [place] [address] PCP - General 07/18/13 12/06/16 documented as of this encounter
--- OUTSIDE RECORDS SUMMARY | 2024-10-13 16:15 | XMS_ITS | Encounter Summary ---
Author Organization [facility] Address [address] [place] [address] Care Team Providers Care Soil Fertility Extension Specialist Name Role Phone Wali Pak MD Primary Care Provider +1- [phone] Encounter Details Date Type Department Care Team (Late st Contact Info) Description 12/28/2011 4:20 PM NEUROSURGICAL NURSE - 12/28/2011 11:59 PM NEUROSURGICAL NURSE Hospital Encounter [facility] CLINCONV Excessive or frequent menstruation Social History Tobacco Use Types Packs/Day Years Used Date Smoking Tobacco: Never Assessed Comments Unknown Sex and Gender Information Value Date Recorded Sex Assigned at Not on file Legal Sex Female 1:15 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
--- OUTSIDE RECORDS SUMMARY | 2024-10-13 16:15 | XMS_ITS | Encounter Summary ---
Author Organization [facility] Address [address] [place] [address] Care Team Providers Care Educational Institution President Name Role Phone Wali Pak MD Primary Care Provider +1- [phone] Encounter Details Date Type Department Care Team (Late st Contact Info) Description 12/09/2011 2:39 PM TRANSPLANT SURGEON - 12/09/2011 11:59 PM TRANSPLANT SURGEON Hospital Encounter [facility] CLINCONV Other screening mammogram; Leiomyoma of uterus Social History Tobacco Use Types Packs/Day Years Used Date Smoking Tobacco: Never Assessed Comments Unknown Sex and Gender Information Value Date Recorded Sex Assigned at Not on file 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
--- OUTSIDE RECORDS SUMMARY | 2024-10-13 16:15 | XMS_ITS | Encounter Summary ---
Author Organization [facility] Address [address] [place] [address] Care Team Providers Care Interpreter Translator Name Role Phone Wali Pak MD Primary Care Provider +1- [phone] Encounter Details Date Type Department Care Team (Late st Contact Info) Description 10/02/2011 9:52 AM PARTS ROOM CLERK - 10/02/2011 10:50 AM PARTS ROOM CLERK Hospital Encounter [facility] Yaz Mendoza MD [address] [place] [address] [place] [address] Chronic sinusitis; Acute pharyngitis Social History Tobacco Use Types Packs/Day Years Used Date Smoking Tobacco: Never Assessed Comments Unknown Sex and Gender Information Value Date Recorded Sex Assigned at Not on file 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
--- OUTSIDE RECORDS SUMMARY | 2024-10-13 16:15 | XMS_ITS | Encounter Summary ---
Author Organization [facility] Address [address] [place] [address] Care Team Providers Care Sales Teacher Name Role Phone Wali Pak MD Primary Care Provider +1- [phone] Encounter Details Date Type Department Care Team (Late st Contact Info) Description 11/30/2011 1:35 PM WEEKEND CAREGIVER - 11/30/2011 11:59 PM WEEKEND CAREGIVER Hospital Encounter [facility] CLINCONV Screening for malignant neoplasm of cervix Social History Tobacco Use Types Packs/Day Years Used Date Smoking Tobacco: Never Assessed Comments Unknown Sex and Gender Information Value Date Recorded Sex Assigned at Not on file Legal Sex Female 1:15 AM WEEKEND CAREGIVER Gender Identity Not on file Sexual Orientation Not on file documented as of this encounter Plan of Treatment Not on file documented as of this encounter Visit Diagnoses Diagnosis Screening for malignant neoplasm of cervix Screening for malignant neoplasm of the cervix documented in this encounter Care Teams Sales Teacher Relationship Specialty Start Date End Date Wali Pak MD [address] [place] [address] PCP - General 11/25/09 07/17/13 documented as of this encounter
--- OUTSIDE RECORDS SUMMARY | 2024-10-13 16:15 | XMS_ITS | Encounter Summary ---
Author Organization [facility] Address [address] [place] [address] Care Team Providers Care Hull Inspector Name Role Phone Wali Pak MD Primary Care Provider +1- [phone] Encounter Details Date Type Department Care Team (Late st Contact Info) Description 07/24/2013 8:38 AM CDT - 07/24/2013 2:00 PM CDT Hospital Encounter [facility] Addi Oseguera MD [address] [place] [address] [address] [place] [address] Tear of medial cartilage or meniscus of knee, current; Tear of lateral cartilage or meniscus of knee, current; Osteoarthrosis involving lower leg; Accident; Unspecified place of occurrence; Allergy to latex Social History Tobacco Use Types Packs/Day Years Used Date Smoking Tobacco: Never Assessed Comments Unknown Sex and Gender Information Value Date Recorded Sex Assigned at Not on file 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 Admit Date: 07/24/2013 Surg.: Addi Oseguera M.D. Disch. Date: DATE OF SURGERY: 07/24/2013 PREOPERATIVE DIAGNOSIS: Internal derangement, right knee. POSTOPERATIVE DIAGNOSIS: 1) Comminuted tear, posterior meniscus, right knee, 2) tear of lateral meniscus, right knee, 3) degenerative arthritis, grade 3, medial compartment and lateral compartment, right knee. OPERATION: Arthroscopy of right knee with partial medial meniscectomy and chondroplasty of the medial femoral condyle and lateral meniscectomy and chondroplasty of lateral femoral condyle. ASSEMBLER CRIMPER: None. PROCEDURE: Under satisfactory general anesthesia, the patient's right lower extremity was prepped and draped in the usual manner. After exsanguination of the extremity with an Esmarch bandage, the pneumatic tourniquet was inflated to 350 mmHg. A stab incision was made just lateral to the patellar tendon at the inferior pole of the patella. A second stab incision was made at the superior pole of the patella laterally. The arthroscope, sheath, and blunt obturator were used to enter the knee inferolaterally, the outflow cannula was inserted superolaterally. It should be noted that a small to moderate amount of clear yellow joint fluid was expressed from the joint upon entering the joint with each cannula. The arthroscope and arthroscopy pump were attached. Arthroscopy was carried out. No abnormalities were noted in the suprapatellar pouch, although there was some generalized debris throughout the knee. This was thoroughly lavaged. So I brought the arthroscope into the patellofemoral joint. Mild to moderate degenerative changes were noted on the patella and the femoral sulcus. In the medial compartment, there was an obvious flap of articular surface. The base was attached more to the anteromedial side on the weight bearing surface near the posterior horn of the meniscus. There was an obvious comminuted tear of the posterior one-third of the medial meniscus, as well. In the intercondylar notch, the cruciate ligament was normal. Laterally the articular surface was normal. It did appear there was a tear at the junction of the middle and anterior thirds of the lateral meniscus. A stab incision was made medially and I probed the tears. There was obvious tearing on the medial side posteriorly and its flap was, as I said, loose, except for the anteromedial attachment. I would estimate the size of this flap of articular cartilage to be about 1 cm. In the lateral compartment, at first I thought possibly this was fraying, but indeed there was a tear, more of a radial-type tear in the meniscus. Also there was some roughening of the articular surface. I could grade this about a grade 3. This was on the weight bearing surface of the femoral condyle. In the gutters, I found no abnormalities. I used a shaver to perform a chondroplasty, both to hopefully therapeutically and also to help with visualization, both on the medial and lateral sides. Several different basket forceps were used to perform a partial medial meniscectomy back to a stable rim. I feel like I probably removed about 25% of the volume of the meniscus from about the junction of the posterior one-third/anterior two-thirds, back to the posterior horn. Further probing revealed no further instability. Laterally, I did remove the torn portion as was described before, again smooth and contouring the margins. Further probing failed to reveal any other instability. Therefore, thorough irrigation of the wound, I checked all compartments one further time and found no other abnormalities. The wound was thoroughly irrigated once more. All instruments were removed and the skin was closed with interrupted 4-0 nylon. The knee was injected with 20 mL of 1% ropivacaine and 80 mg of Depo-Medrol. Dry dressings were applied, along with a postoperative knee splint. Sponge and instrument counts were correct. Estimated blood loss was negligible. The patient tolerated the procedure well and left the operating room in satisfactory condition. Addi Oseguera M.D. SHELLIE/timothy TD: 07/24/2013 12:28 Authenticated by Addi Oseguera MD On 07/27/2013 08:01:48 AM documented in this encounter Plan of Treatment Not on file documented as of this encounter Procedures Procedure Name Priority Date/Time Associated Diagnosis Comments BLOOD HEMOGLOBIN Routine 07/24/2013 8:48 AM CDT BLOOD HEMATOCRIT Routine 07/24/2013 8:48 AM CDT ELECTROCARDIOGRAPHY (ECG) 07/24/2013 DISCHARGE LABORATORY CUMULATIVE REPORT Routine 07/24/2013 12:00 AM CDT documented in this encounter Results * Blood hematocrit (07/24/2013 8:48 AM CDT) Hct 42.0 37.0 - 47.0 % HISTORICAL RESULTS Blood specimen (specimen) 07/24/2013 8:48 AM CDT Addi Oseguera MD LAB BLOOD ORDERABLES Fi nal Result Performing Organization Address [facility] de Phone Number HISTORICAL RESULTS * Blood hemoglobin (07/24/2013 8:48 AM CDT) Hgb 13.4 12.0 - 16.0 g/dl HISTORICAL RESULTS Blood specimen (specimen) 07/24/2013 8:48 AM CDT Addi Oseguera MD LAB BLOOD ORDERABLES Fi nal Result Performing Organization Address [facility] de Phone Number HISTORICAL RESULTS * Discharge Laboratory Cumulative Report (07/24/2013 12:00 AM CDT) 07/24/2013 Narrative HISTORICAL RESULTS - 07/25/2013 12:28 AM CDT Patient No: [id number] ? [facility] Patient Name: RAMESH RUFF ?[facility] Age: 48 YRS ?: 1965 ?Sex:F ?[address] )[id number] ?? Adm Dt: 07/24/2013 ?[place], [place] ??[address] Created: 07/25/2013 ??0028 ?? Pt. Type: O ? Discharge Dt: 07/24/2013 ? Pathologists: Thi Balbuena MD Admit Attend Dr: ADDI OSEGUERA MD ? BLOOD CELL COUNTS ?Collection Date: ?07/24/13 ?Collection Time: ?0848 ? Ref Range: ?? Units: [12.0-16.0] ??G/DL ? HGB ? 13.4 [37.0-47.0] ??% ?HCT ? 42.0 ?? END OF CHART ? Page: ?? 1 us Historical Provider LAB BLOOD ORDERABLES Mary l Result HISTORICAL RESULTS * ELECTROCARDIOGRAPHY (ECG) (07/24/2013) Narrative 07/24/2013 Ordered by an unspecified provider. us Historical Provider ECG ORDERABLES Final Res ult documented in this encounter Visit Diagnoses Diagnosis Tear of medial cartilage or meniscus of knee, current Tear of lateral cartilage or meniscus of knee, current Osteoarthrosis involving lower leg Accident Unspecified accident Unspecified place of occurrence Allergy to latex documented in this encounter Care Teams Hull Inspector Relationship Specialty Start Date End Date Wali Pak MD [address] [place] [address] PCP - General 07/18/13 12/06/16 documented as of this encounter
--- OUTSIDE RECORDS SUMMARY | 2024-10-13 16:15 | XMS_ITS | Encounter Summary ---
Author Organization [facility] Address [address] [place] [address] Care Team Providers Care Offensive Coordinator Name Role Phone Wali Pak MD Primary Care Provider +1- [phone] Encounter Details Date Type Department Care Team (Latest Contact Info) Description 02/17/2014 10:20 PM CDT - 02/17/2014 11:59 PM CDT Hospital Encounter [facility] Head injury; Fall resulting in striking against other object; Unspecified place of occurrence; Activities involving walking, marching and hiking; Other specified visual disturbances Social History Tobacco Use Types Packs/Day Years Used Date Smoking Tobacco: Never Alcohol Use Standard Drinks/Week Comments Yes 0 (1 standard drink = 0.6 oz pur e alcohol) Comments Unknown Sex and Gender Information Value Date Recorded Sex Assigned at Not on file 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
--- OUTSIDE RECORDS SUMMARY | 2024-10-13 16:15 | XMS_ITS | Encounter Summary ---
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
--- OUTSIDE RECORDS SUMMARY | 2024-10-13 16:15 | XMS_ITS | Encounter Summary ---
Author Organization [facility] Address [address] [place] [address] Care Team Providers Care Envelope Folding Machine Adjuster Name Role Phone Wali Pak MD Primary Care Provider +1- [phone] Encounter Details Date Type Department Care Team (Latest Contact Info) Description 11/30/2011 5:11 PM SENIOR MARKETING ASSOCIATE - 11/30/2011 11:59 PM SENIOR MARKETING ASSOCIATE Hospital Encounter [facility] Excessive or frequent menstruation Social History Tobacco Use Types Packs/Day Years Used Date Smoking Tobacco: Never Assessed Comments Unknown Sex and Gender Information Value Date Recorded Sex Assigned at Not on file Legal Sex Female 1:15 AM SENIOR MARKETING ASSOCIATE Gender Identity Not on file Sexual Orientation Not on file documented as of this encounter Plan of Treatment Not on file documented as of this encounter Visit Diagnoses Diagnosis Excessive or frequent menstruation documented in this encounter Care Teams Envelope Folding Machine Adjuster Relationship Specialty Start Date End Date Wali Pak MD [address] [place] [address] PCP - General 11/25/09 07/17/13 documented as of this encounter
== END 2024-10-08 18:06 | disposition home or self-care (01) ==
PROVIDERS: Emergency Provider Nurse Practitioner Family; PCP Internal Medicine
DX: J40 Bronchitis, not specified as acute or chronic (principal); J06.9 Acute upper respiratory infection, unspecified; R05.9 Cough, unspecified; J32.9 Chronic sinusitis, unspecified; Z20.822 Contact with and (suspected) exposure to COVID-19; I10 Essential (primary) hypertension; F41.9 Anxiety disorder, unspecified
CPT/HCPCS: 71046; 87426; 87804; 99213; G0463

== ENCOUNTER 2025-06-12 18:57 | Emergency (ER) | payer OTHER, SELFPAY ==
--- NOTE | 2025-06-12 18:59 | ED_ITS ---
HPI - URI/Sore Throat General Chief Complaint: Upper Respiratory Infection Stated Complaint: Sore Throat/Fever/Back Pain Time Seen by Provider: 06/12/25 18:58 Source: patient Mode of arrival: ambulatory Limitations: no limitations History of Present Illness HPI Narrative: Ashley is a 59-year-old female patient presenting to the clinic today with complaints of sore throat, headache, low grade fever, wheezing, nonproductive cough, and body aches x2-3 days. She reports she does feel some mild shortness of breath. Denies any chest pain. No history of COPD or asthma. She is a nonsmoker. Related Data Home Medications ?Medication ?Instructions ?Recorded ?Confirmed ?Last Taken ?Type bupropion HCl 100 mg tablet 100 mg PO DIRECTED 03/2510/08/24 Unknown History furosemide 20 mg tablet 20 mg PO DIRECTED 3 10/08/24 Unknown History carvedilol 6.25 mg tablet mg 10/08/24 Unknown History Allergies Allergy/AdvReac Type Severity Reaction Status Date / Time latex Allergy Severe Rash Verified 06/12/25 19:09 Penicillins Allergy Unknown rash Verified 06/12/25 19:09 Review of Systems Review of Systems: Pertinent positives per HPI. Patient denies any rash, visual changes, dizziness, chest pain, palpitations, nausea, vomiting, diarrhea, constipation, abdominal pain, or any urinary issues. PMFSH Past Medical History Medical History Anxiety Hypertension Surgical History Surgical History History of arthroscopy of both knees H/O: hysterectomy Previous section X2 Social History Social History Smoking status: Never smoker Alcohol intake: unknown Substance use type: does not use Living arrangements: with family Gender identity (if verbalized by the patient): Female Comments At the time of my signature, I reviewed and agree with the nursing past medical, surgical, social, and family history. There is no relevant family history pertinent to the patient complaint. Exam Narrative: General: Well-developed, well nourished, in no apparent distress Head: Normocephalic, atraumatic Eyes: Pupils equally round and reactive to light bilaterally, EOM intact, sclera and conjunctive clear, no discharge, lids normal Ears: TMs intact and clear, ear canals clear, no drainage, grossly hearing normal. Nose: Nares patent, clear nasal discharge, moderate inflammation, no sinus tenderness. Mouth: Oral pharynx red without lesions or masses, good dentition, MMM. Postnasal drip Neck: Supple, trachea midline, no enlargement of anterior or posterior cervical nodes, no thyroid masses or goiter palpable. Cardio: Regular rate and rhythm, s1 and s2 normal, no murmur appreciated. Resp: Expiratory wheezing, no rhonchi, rales, or rubs Course Course Emergency Course: Portions of this record may have been created with voice recognition software. Level of Care: Express Care Visit Vital Signs Vital signs: Vital Signs Temperature 36.4 C 06/12/25 19:02 Pulse Rate 82 06/12/25 19:02 Respiratory Rate 20 06/12/25 19:02 Blood Pressure 147/80 H 06/12/25 19:02 Pulse Oximetry 97 06/12/25 19:02 Oxygen Delivery Room Air 06/12/25 19:02 Temperature 36.4 C 06/12/25 19:02 Pulse Rate 82 06/12/25 19:02 Respiratory Rate 20 06/12/25 19:02 Blood Pressure 147/80 H 06/12/25 19:02 Pulse Oximetry 97 06/12/25 19:02 Oxygen Delivery Room Air 06/12/25 19:02 Vital signs reviewed MDM - URI/Sore Throat MDM Narrative Medical decision making narrative: At the time of visit patient is resting comfortably on the exam table. Patient appears to be nontoxic. Complaints of sore throat, headache, low grade fever, wheezing, nonproductive cough, and body aches x2-3 days. She reports she does feel some mild shortness of breath. Denies any chest pain. No history of COPD or asthma. She is a nonsmoker pain. COVID, influenza, and strep test was ordered Labs: COVID, influenza, and strep test were performed. All testing was negative. We will send strep for culture. Plan: I suspect patient has URI/viral bronchitis. Will send in prescription for prednisone and albuterol inhaler. Supportive measures were discussed with the patient and they voiced understanding discharge instructions and agrees to treatment plan. Return precautions reviewed Differential Diagnosis Differential diagnosis: Likely upper respiratory infection, otitis media, sinusitis, viral infection, bronchitis, influenza, pharyngitis and other (COVID) Lab Data Labs: Lab Results 06/12/25 Range/Units 19:24 POC Influenza A Ag Negative (Negative) POC Influenza B Ag Negative (Negative) POC SARS CoV-2 Ag Negative (Negative) POC Grp A Strep Screen Negative (Negative) Discharge Plan Discharge Clinical Impression: Bronchitis Upper respiratory infection Qualifiers: URI type: unspecified viral URI Qualified Code(s): J06.9 - Acute upper respiratory infection, unspecified Patient Disposition: Home Condition: Stable Instructions: Antibiotic Form, Upper Respiratory Infection (ED), Acute Bronchitis (ED) Additional Instructions: COVID, influenza, and strep test were all negative in the clinic today. Take prescription medications only as prescribed-prednisone and albuterol inhaler May take Coricidin HBP as directed on bottle for cold/flu symptoms Increase fluids and stay well hydrated May take Tylenol or motrin as directed on bottle for pain/fever May use Flonase 1 spray in each nare daily May take OTC antihistamines such as Zyrtec or Claritin daily as directed on bottle May apply Vicks vapor rub to chest to open sinuses Sinus rinses for congestion Cepacol spray, cough drops, throat lozenges, warm tea with honey/lemon, gargle salt water to soothe throat BRAT diet for diarrhea Clear liquids x 24 hours then advance as tolerated for nausea/vomiting Go to the ED if you develop a worsening in your condition- high fever not controlled by Tylenol or Motrin, dehydration, weakness, lethargy, shortness of breath, or chest pain. Follow up with your PCP in 3-5 days if symptoms persist. Patient Language: Citizen Of [place] Prescriptions: New prednisone 20 mg tablet 40 mg PO DAILY 5 Days Qty: 10 0RF albuterol sulfate 90 mcg/actuation HFA aerosol inhaler 2 puff inhalation Q4-6H PRN (Reason: shortness of breath or wheezing) 30 Days Qty: 8.5 0RF No Action bupropion HCl 100 mg tablet 100 mg PO DIRECTED furosemide 20 mg tablet 20 mg PO DIRECTED carvedilol 6.25 mg tablet Follow-up/Referrals: Pasha,Wali Chatman MD [Primary Care Provider, Unknown] Time of Disposition: 19:27 Quality NIHSS Nursing Documentation ED NIHSS nursing documentation: reviewed/agree
[2025-06-12 19:02] VITALS: BP 147/80; PULSE 82; RESP 20; TEMP 36.4; O2SAT 97
[2025-06-12 19:26] LABS: EDCOVIDSCREEN Negative (Negative); EDINFLUASCREEN Negative (Negative); EDINFLUBSCREEN Negative (Negative); EDSTREPNEGPOS1 Negative (Negative)
== END 2025-06-12 19:31 | disposition home or self-care (01) ==
PROVIDERS: Emergency Provider Nurse Practitioner Family; PCP Internal Medicine
DX: J40 Bronchitis, not specified as acute or chronic (principal); J06.9 Acute upper respiratory infection, unspecified; Z20.822 Contact with and (suspected) exposure to COVID-19; I10 Essential (primary) hypertension; F41.9 Anxiety disorder, unspecified
CPT/HCPCS: 87081; 87426; 87804; 87880; 99213; G0463